=== PATIENT | male | born 1945 | race Caucasian/White ===

== ENCOUNTER → 2017-01-25 | Outpatient (CLI) | payer MEDICARE, OTHER ==
[~2017-01-25] MED LIST: ALLO100T PO; AMLO5TAB2 PO; CIPR500T3 PO; CO Q1CAP PO; COZA100T2 PO; LORTTAB5 PO; PERC5TAB6 PO; RISATAB3 PO; SERT50TA PO; SOMA350T PO; TYLE325T5 PO; VANC125C2 PO; ZOLO50TA PO
--- NOTE | 2017-01-25 15:41 | REP ---
CT LUMBAR SPINE WITHOUT CONTRAST: HISTORY: Fracture. COMPARISON: MRI 12/31/2016. A diffuse disc bulge is present at the L1-2 level. There is minimal compression of the thecal sac. There is hypertrophy of the posterior articulating facets. The L1 nerves exit the neural foramina without compression. A diffuse disc bulge is present at the L2-3 level. There is hypertrophy of the ligamenta flava and posterior articulating facets. These findings produce severe central canal stenosis. There is compression of the L2 nerves in the neural foramina. A diffuse disc bulge is present at the L3-4 level. There is hypertrophy of the ligamenta flava and posterior articulating facets. These findings produce moderate central canal stenosis. There is compression of the L3 nerves in the neural foramina. A diffuse disc bulge is present at the L4-5 level. There is hypertrophy of the ligamenta flava and posterior articulating facets. There are 4 mm of grade 1 spondylolisthesis of L4 on 5. These findings produce severe central canal stenosis. There is compression of the L4 nerves in the neural foramina. An interspinous spacer is present at this level. A diffuse disc bulge is present at the L5-S1 level. There is no thecal sac compression. The disc bulge abuts the S1 nerves. There is hypertrophy of the posterior articulating facets. There is compression of the L5 nerves in the neural foramina. There are old compression fractures of the L3 and L5 vertebral bodies with minima and mild height loss. The L2-3, L4-5 and L5-S1 intervertebral discs are decreased in height consistent with disc degeneration. IMPRESSION: 1. Diffuse disc bulge at the L1-2 level with minimal thecal sac compression. 2. Severe central canal stenosis at the L2-3 level secondary to disc bulge, ligamentous and facet hypertrophy. There is compression of the L2 nerves in the neural foramina. 3. Moderate central canal stenosis at the L3-4 level secondary to disc bulge, ligamentous and facet hypertrophy. There is compression of the L3 nerves in the neural foramen. 4. Severe central canal stenosis at the L4-5 level secondary to disc bulge, ligamentous and facet hypertrophy and grade 1 spondylolisthesis. There is compression of the L4 nerves in the neural foramina. An interspinous spacer is present. 5. Diffuse disc bulge at the L5-S1 level. This abuts the thecal sac. There is compression of the L5 nerves in the neural foramen. 6. Old compression fractures of the L3 and L5 vertebral bodies with minimal and mild height loss respectively. Signed by Doc Lovett MD 01/25/2017 03:48 P
--- NOTE | 2017-01-25 16:27 | REP ---
Lumbar spine series: Seven views: History: Wedge compression fracture. Comparison study is from 12/24/2016. Findings: Lateral views include flexion/extension lateral radiographs. No subluxation or instability is seen. The patient status post L4-5 fusion with interspinous process clamping. There is compression deformity at L5 with approximately 30% loss of the vertebral body height at L5 unchanged. Degenerative disc disease is seen at L4-5 and L3-4. There is some wedging at L3 unchanged as well. No subluxation or instability is seen. There are calcifications in the upper abdomen suggestive of pancreatic and/or biliary calcifications. There are surgical clips in the right upper and right lower abdomen. Impression: Degenerative spondylosis changes. Old compressions of L3 and L5. No subluxation seen. Signed by Alfredito Gregorio MD 01/25/2017 04:49 P
== END ==
LOC: M RAD 14:40
PROVIDERS: ATTEND Neurological Surgery
DX: S32.000A Wedge compression fracture of unspecified lumbar vertebra, initial encounter for closed fracture (principal); M47.816 Spondylosis without myelopathy or radiculopathy, lumbar region; M51.06 Intervertebral disc disorders with myelopathy, lumbar region; M51.17 Intervertebral disc disorders with radiculopathy, lumbosacral region; M99.73 Connective tissue and disc stenosis of intervertebral foramina of lumbar region; M43.16 Spondylolisthesis, lumbar region; X58.XXXA Exposure to other specified factors, initial encounter; Y92.9 Unspecified place or not applicable; Y93.9 Activity, unspecified; Y99.9 Unspecified external cause status

== ENCOUNTER → 2017-03-03 | Outpatient (CLI) | payer MEDICARE, OTHER ==
[~2017-03-03] MED LIST changes: +CO Q100C PO; -CO Q1CAP PO; +LACT10SO3 PO; +LOSA25TA8 PO; +LOVE0.4I2 SC; +METO5TAB2 PO; +ONDA4TAB6 PO; +OPTI4PAD XX; +PANT40TA2 PO; +PERC5TAB12 PO; -PERC5TAB6 PO; +ZANA2CAP PO
[2017-03-03 14:15] LABS: BASO % 0.3 % (0.0-1.0); EOS % 1.1 % (0.0-3.0); LARGE UNSTAINED CELL # 0.1 K/mm3 (0.0-0.4); LARGE UNSTAINED CELL % 2.5 % (0.0-4.0); LYMPH # 0.8 K/mm3 (1.5-4.5); LYMPH % 14.6 % (24.0-44.0); MEAN CORPUSCULAR HEMOGLOBIN 31.3 pg (27.0-33.0); MEAN CORPUSCULAR HGB CONC 32.7 g/dl (32.0-36.5); MEAN CORPUSCULAR VOLUME 95.8 fl (80.0-96.0); MONO # 0.5 K/mm3 (0.0-0.8); MONO % 10.8 % (0.0-5.0); NEUTROPHILS # 3.4 K/mm3 (1.8-7.7); NEUTROPHILS % 70.7 % (36.0-66.0); PLATELET COUNT, AUTOMATED 159 k/mm3 (150-450); RED CELL DISTRIBUTION WIDTH 17.1 % (11.5-14.5); WHITE BLOOD COUNT 4.8 K/mm3 (4.0-10.0)
--- NOTE | 2017-03-03 14:16 | REP ---
Chest two views HISTORY: Spinal fracture Comparison: 07/14/2016 The lungs are clear. The heart is normal in size. The pulmonary vasculature is normal in appearance. The bony structure is intact. An Xcamfl-T-Sdah catheter is present. IMPRESSION: No acute disease. Signed by Doc Lovett MD 03/03/2017 02:07 P
[2017-03-03 14:20] LABS: INR 1.07
[2017-03-03 14:33] LABS: ALBUMIN 3.1 GM/DL (3.2-5.2); ALBUMIN/GLOBULIN RATIO 0.65 (1.00-1.93); BILIRUBIN,TOTAL 0.3 MG/DL (0.2-1.0); CALCIUM LEVEL 8.6 MG/DL (8.8-10.2); CREATININE FOR GFR 2.07 MG/DL (0.70-1.30); POTASSIUM SERUM 4.8 MEQ/L (3.5-5.1); TOTAL PROTEIN 7.9 GM/DL (6.4-8.2)
--- NOTE | 2017-03-04 15:22 | ECGEPIP ---
Stationary ECG Study [facility] Test Date: 2017-03-03 Pat Name: DONATO DICK Department: Room: - Gender: M Digital Imaging Technician: KENYATTA : 1945 Requested By: TEVIN REAVES Order Number: [id number] Reading MD: Daniel Lobato Measurements Intervals Maceo Rate: 70 P: 66 DC: 233 QRS: -58 QRSD: 130 T: 25 QT: 401 QTc: 434 Interpretive Statements SINUS RHYTHM WITH FIRST DEGREE AV BLOCK RIGHT BUNDLE BRANCH BLOCK LEFT ANTERIOR FASCICULAR BLOCK Similar to 07/16/2016 except for new left axis deviation. Electronically Signed On 03-04-2017 15:21:50 EDT by Daniel Lobato
== END ==
LOC: M LAB 13:13
PROVIDERS: ATTEND Neurological Surgery
DX: S32.000A Wedge compression fracture of unspecified lumbar vertebra, initial encounter for closed fracture (principal); M48.07 Spinal stenosis, lumbosacral region; I45.2 Bifascicular block; I44.0 Atrioventricular block, first degree; X58.XXXA Exposure to other specified factors, initial encounter; Y92.9 Unspecified place or not applicable; Y93.9 Activity, unspecified; Y99.9 Unspecified external cause status

== ENCOUNTER → 2017-03-04 | Outpatient (REF) | payer MEDICARE, OTHER | LOC: M LAB REF 10:07 | PROVIDERS: ATTEND Neurological Surgery | DX: S32.000A Wedge compression fracture of unspecified lumbar vertebra, initial encounter for closed fracture (principal); M48.07 Spinal stenosis, lumbosacral region; X58.XXXA Exposure to other specified factors, initial encounter; Y92.9 Unspecified place or not applicable; Y93.9 Activity, unspecified; Y99.9 Unspecified external cause status ==

== ENCOUNTER 2017-03-17 07:30 | Inpatient (IN) | payer MEDICARE, OTHER ==
[~2017-03-17] VITALS: Ht 182.9 cm; Wt 108.4 kg
[~2017-03-17 07:30] MED LIST changes: -LACT10SO3 PO; -LOVE0.4I2 SC; -METO5TAB2 PO; -ONDA4TAB6 PO; -OPTI4PAD XX; -PANT40TA2 PO
[2017-04-05] MEDS ORDERED: BUPIVACAINE HCL 0.5% 30 ML VIAL As Ordered ONE (06:40)
[2017-04-05] MEDS ORDERED: TRANEXAMIC ACID 100 MG/ML 10ML VIAL As Ordered ONE (06:40)
[2017-04-05] MEDS ORDERED: THROMBIN SOLN 20,000 UNITS KIT As Ordered ONE (06:40)
[2017-04-05] MEDS ORDERED: HEPARIN SOD (PORCINE) 5000 UNITS/ML VIAL As Ordered ONE (06:40)
[2017-04-05] MEDS ORDERED: BACITRACIN PWD 50,000 UNITS VIAL As Ordered ONE ×2 (06:41→10:31)
[2017-04-05] MEDS ORDERED: LR 1,000 ML IV ONE (08:00)
[2017-04-05] MEDS ORDERED: LIDOCAINE 2% INJ 100 MG/5 ML SDV (FOR ANES.) As Ordered ONE (12:13)
[2017-04-05] MEDS ORDERED: ePHEDrine SULFATE 25 MG/5 ML(5MG/ML) SYRINGE As Ordered ONE (12:13)
[2017-04-05] MEDS ORDERED: PROPOFOL 200 MG/20 ML VIAL As Ordered ONE ×2 (12:13→13:56)
[2017-04-05] MEDS ORDERED: MIDAZOLAM INJ 2 MG/2 ML VIAL (J2250) As Ordered ONE (12:13)
[2017-04-05] MEDS ORDERED: PROPOFOL 500 MG/50 ML VIAL As Ordered ONE (12:13)
[2017-04-05] MEDS ORDERED: dexameTHASONE 4 MG/ML 1ML VIAL (J1100) As Ordered ONE (12:13)
[2017-04-05] MEDS ORDERED: ROCURONIUM BROMIDE 50 MG/5 ML VIAL/SYRINGE As Ordered ONE (12:13)
[2017-04-05] MEDS ORDERED: REMIFENTANIL 1MG 3ML VIAL As Ordered ONE ×4 (12:13→17:08)
[2017-04-05] MEDS ORDERED: fentaNYL 250 MCG/5 ML INJECTION (J3010) As Ordered ONE (12:13)
[2017-04-05 13:08] LABS: ABG BASE EXCESS -7.6 (-2.0-2.0); ABG HCO3 19.5 MEQ/L (22.0-26.0); ABG PARTIAL PRESSURE CO2 46.4 mmHg (35.0-45.0); ABG PARTIAL PRESSURE O2 227.2 mmHg (75.0-100.0); ABG STANDARD HCO3 18.3 MEQ/L (22.0-26.0)
[2017-04-05 13:13] LABS: ABG pH (ARTERIAL) 7.242 UNITS (7.350-7.450)
[2017-04-05 13:14] LABS: MEAN CORPUSCULAR HEMOGLOBIN 31.7 pg (27.0-33.0); MEAN CORPUSCULAR VOLUME 96.1 fl (80.0-96.0); WHITE BLOOD COUNT 4.6 K/mm3 (4.0-10.0)
[2017-04-05] MEDS ORDERED: HYDROmorphone HCL 2 MG/ML 1ML VIAL (J1170) As Ordered ONE (13:27)
[2017-04-05] MEDS ORDERED: BUPIVACAINE LIPOSOME/PF 1.3% 20 ML VIAL (13.3MG/ML)(EXPAREL) As Ordered ONE (13:33)
[2017-04-05] MEDS ORDERED: ceFAZolin 2 GM/D5W 50 ML IV BAG (J0690) As Ordered ONE ×2 (13:33→18:00)
[2017-04-05] MEDS ORDERED: ONDANSETRON 4MG/2ML VIAL (J2405) As Ordered ONE (13:53)
[2017-04-05] MEDS ORDERED: NEOSTIGMINE 1MG/ML 5 ML SYRINGE (J2710) As Ordered ONE (13:53)
[2017-04-05] MEDS ORDERED: GLYCOPYRROLATE INJ 0.2 MG/ML 2 ML VIAL As Ordered ONE (13:53)
[2017-04-05] MEDS ORDERED: PHENYLephrine HCL 500 MCG/5 ML (100MCG/ML) SYRINGE (J2370) As Ordered ONE ×3 (13:56→17:11)
[2017-04-05 14:32] LABS: ABG BASE EXCESS -8.3 (-2.0-2.0); ABG HCO3 17.8 MEQ/L (22.0-26.0); ABG PARTIAL PRESSURE CO2 38.7 mmHg (35.0-45.0); ABG PARTIAL PRESSURE O2 210.3 mmHg (75.0-100.0); ABG STANDARD HCO3 17.8 MEQ/L (22.0-26.0); ABG pH (ARTERIAL) 7.281 UNITS (7.350-7.450)
[2017-04-05 14:39] LABS: MEAN CORPUSCULAR HEMOGLOBIN 31.2 pg (27.0-33.0); MEAN CORPUSCULAR HGB CONC 31.8 g/dl (32.0-36.5); MEAN CORPUSCULAR VOLUME 98.1 fl (80.0-96.0); RED CELL DISTRIBUTION WIDTH 16.6 % (11.5-14.5); WHITE BLOOD COUNT 4.7 K/mm3 (4.0-10.0)
[2017-04-05] MEDS ORDERED: SODIUM BICARBONATE 8.4% INJ 50 ML SYRINGE As Ordered ONE (14:39)
[2017-04-05] MEDS ORDERED: CALCIUM CHLORIDE 10% 1 GM/10 ML SYR As Ordered ONE (15:46)
[2017-04-05 17:20] LABS: ABG BASE EXCESS -8.5 (-2.0-2.0); ABG HCO3 17.6 MEQ/L (22.0-26.0); ABG PARTIAL PRESSURE CO2 38.8 mmHg (35.0-45.0); ABG PARTIAL PRESSURE O2 186.9 mmHg (75.0-100.0); ABG STANDARD HCO3 17.6 MEQ/L (22.0-26.0); ABG TOTAL CO2 18.8 MEQ/L (23.0-31.0)
[2017-04-05 17:21] LABS: ABG pH (ARTERIAL) 7.275 UNITS (7.350-7.450)
[2017-04-05 17:21] LABS: MEAN CORPUSCULAR HEMOGLOBIN 31.8 pg (27.0-33.0); MEAN CORPUSCULAR HGB CONC 33.2 g/dl (32.0-36.5); MEAN CORPUSCULAR VOLUME 95.7 fl (80.0-96.0); RED CELL DISTRIBUTION WIDTH 16.3 % (11.5-14.5); WHITE BLOOD COUNT 5.6 K/mm3 (4.0-10.0)
[2017-04-05] MEDS ORDERED: BACITRACIN OINT 30GM As Ordered ONE (17:48)
[2017-04-05] MEDS ORDERED: ESMOLOL INJ 100MG/10ML VIAL As Ordered ONE (18:57)
--- NOTE | 2017-04-05 19:05 | REP ---
C-ARM VIEWS LUMBAR SPINE: Multiple lateral C-ARM views of the lumbar spine are performed. Some of the views show an interspinous metallic clamp posteriorly at the L4-5 level. Other views show linear metallic probes in the lower lumbar region. 59 seconds of fluoroscopic time was utilized for the procedure. Signed by Joshua Saab MD 04/06/2017 12:34 P
[2017-04-05] MEDS ORDERED: LR 1,000 ML IV SCH (19:30)
[2017-04-05] MEDS ORDERED: METOCLOPRAMIDE INJ 10MG/2ML VIAL (J2765) IV PRN (19:30)
[2017-04-05] MEDS ORDERED: ONDANSETRON 4MG/2ML VIAL (J2405) IV PRN (19:30)
[2017-04-05] MEDS ORDERED: PERCOCET 5MG/325MG TAB PO PRN (19:30)
[2017-04-05] MEDS ORDERED: NORCO, ANEXSIA 5/325MG TABLET (HYDROcodone/ACETAMINOPHEN) PO PRN (19:45)
[2017-04-05] MEDS: fentaNYL 100 MCG/2 ML INJECTION (J3010) IV PRN ×2 (19:50→20:11)
[2017-04-05 20:09] LABS: MEAN CORPUSCULAR HEMOGLOBIN 30.7 pg (27.0-33.0); MEAN CORPUSCULAR HGB CONC 32.5 g/dl (32.0-36.5); MEAN CORPUSCULAR VOLUME 94.5 fl (80.0-96.0); RED CELL DISTRIBUTION WIDTH 17.5 % (11.5-14.5); WHITE BLOOD COUNT 6.8 K/mm3 (4.0-10.0)
[2017-04-05 20:11] LABS: INR 1.23
[2017-04-05 20:25] LABS: ALBUMIN 1.9 GM/DL (3.2-5.2); ALBUMIN/GLOBULIN RATIO 0.59 (1.00-1.93); ALKALINE PHOSPHATASE 68 U/L (45-117); ALT/SGPT 15 U/L (12-78); ANION GAP 12 MEQ/L (8-16); AST/SGOT 21 U/L (15-37); BILIRUBIN,DIRECT < 0.1 MG/DL (0.0-0.2); BILIRUBIN,TOTAL 0.2 MG/DL (0.2-1.0); BLOOD UREA NITROGEN 33 MG/DL (7-18); CALCIUM LEVEL 6.9 MG/DL (8.8-10.2); CARBON DIOXIDE LEVEL 14 MEQ/L (21-32); CHLORIDE LEVEL 120 MEQ/L (98-107); CREATININE FOR GFR 1.68 MG/DL (0.70-1.30); GLOMERULAR FILTRATION RATE 43.2 (>42); GLUCOSE, FASTING 122 MG/DL (83-110); MAGNESIUM LEVEL 1.4 MG/DL (1.8-2.4); SODIUM LEVEL 146 MEQ/L (136-145); TOTAL PROTEIN 5.1 GM/DL (6.4-8.2)
[2017-04-05 20:43] VITALS: BP_SYST 113; BP_SYST 125; BP_DIAS 57; BP_DIAS 74
[2017-04-05 21:00] VITALS: BP_SYST 108; BP_SYST 117; BP_DIAS 64; BP_DIAS 69
[2017-04-05] MEDS: KCL 20MEQ IN 0.45NS 1000ML 1,000 ML IV SCH (21:00)
[2017-04-05] MEDS ORDERED: DOCUSATE SODIUM 100 MG CAP PO SCH (21:00)
[2017-04-05] MEDS ORDERED: LACTOBACILLUS ACIDOPHILUS CAP (BACID) PO SCH (21:00)
[2017-04-05] MEDS: CEFUROXIME SODIUM 750 MG in D5W MINI-BAG PLUS 50 ML IV SCH (21:01)
[2017-04-05] MEDS: MORPHINE 2 MG/ML 1ML SYRINGE IV PRN ×2 (21:26→23:47)
[2017-04-05] MEDS ORDERED: MAG SULF 1GM/100ML (MAG RUN) 1 GM in APPROPRIATE DILUENT 1 EA IV ONE (22:00)
[2017-04-05 22:25] LABS: MICROSCOPIC INDICATED? MAN YES (NO)
[2017-04-05 22:44] LABS: MICROSCOPIC EXAM PERFORMED; WBC, URINE NONE SEEN /hpf (0-3)
[2017-04-05 22:45] LABS: BACTERIA, URINE NONE SEEN; HYALINE CAST, URINE NONE SEEN /lpf (0-1); SQUAMOUS EPITHELIAL CELL URINE SMALL AMOUNT /hpf (SMALL AMT)
[2017-04-05 23:00] VITALS: BP_SYST 104; BP_SYST 115; BP_DIAS 115; BP_DIAS 60
[2017-04-06] VITALS (23 sets, daily range): BP systolic 95–147; BP diastolic 51–81
[2017-04-06] MEDS: MORPHINE 2 MG/ML 1ML SYRINGE IV PRN ×3 (02:16→23:31)
[2017-04-06] MEDS: CEFUROXIME SODIUM 750 MG in D5W MINI-BAG PLUS 50 ML IV SCH ×2 (05:48→12:36)
[2017-04-06 06:25] LABS: MEAN CORPUSCULAR HEMOGLOBIN 31.5 pg (27.0-33.0); MEAN CORPUSCULAR HGB CONC 33.5 g/dl (32.0-36.5); MEAN CORPUSCULAR VOLUME 94.1 fl (80.0-96.0); RED CELL DISTRIBUTION WIDTH 17.8 % (11.5-14.5); WHITE BLOOD COUNT 8.7 K/mm3 (4.0-10.0)
[2017-04-06 06:33] LABS: INR 1.18
[2017-04-06 06:38] LABS: ALBUMIN 2.4 GM/DL (3.2-5.2); ALBUMIN/GLOBULIN RATIO 0.67 (1.00-1.93); BILIRUBIN,TOTAL 0.3 MG/DL (0.2-1.0); CALCIUM LEVEL 8.4 MG/DL (8.8-10.2); CREATININE FOR GFR 1.95 MG/DL (0.70-1.30); GLOMERULAR FILTRATION RATE 36.4 (>42); MAGNESIUM LEVEL 2.1 MG/DL (1.8-2.4)
[2017-04-06 06:51] LABS: POTASSIUM SERUM 5.6 MEQ/L (3.5-5.1)
--- NOTE | 2017-04-06 07:30 | REPUSA ---
Indication: Evaluate compression. Technique: Axial CT scan images without contrast. Reformatted coronal and sagittal images. Comparison: 01/25/2017. Findings: Unchanged moderate osteopenia. Recent multilevel laminectomies are noted at L2-L3, L3-L4, L4-L5 and L5-S1 levels. Soft tissue edema, minimal effusion and emphysema are noted in the surgical bed. Surgical drains are noted in good position. Complete resolution of the previously noted multilevel narrowing of the spinal canal. Unchanged grade 1 anterolisthesis of L4 on L5. Unchanged moderate diffuse disc bulges. Unchanged moderate to severe bilateral neural foramina narrowing from L2-S1 levels. Unchanged mild chronic compression deformities of the L5, L4, L3 and L2 vertebral bodies. Impression: Unchanged osteopenia. Laminectomies are noted from L2-S1 levels. Surgical changes with edema, emphysema and minimal fluid. Complete resolution of multilevel stenosis of the spinal canal. Unchanged chronic spondylosis. Unchanged osteopenia with multiple chronic compression deformities of the lumbar vertebral bodies.
[2017-04-06] MEDS: KCL 20MEQ IN 0.45NS 1000ML 1,000 ML IV SCH (08:08)
[2017-04-06] MEDS ORDERED: ACETAMINOPHEN 650 MG SUPP PR PRN (08:30)
[2017-04-06] MEDS: LACTULOSE 20 GM/30 ML SYRUP UD PO SCH ×3 (08:52→20:37)
[2017-04-06] MEDS: NS 0.45% 1,000 ML IV SCH ×2 (08:57→20:41)
[2017-04-06] MEDS ORDERED: LOSARTAN 25 MG TAB PO SCH (09:00)
[2017-04-06] MEDS ORDERED: ACETAMINOPHEN 650 MG SUPP PR SCH ×2 (09:00)
[2017-04-06] MEDS ORDERED: tiZANidine 4 MG TAB PO SCH (09:00)
[2017-04-06] MEDS ORDERED: SERTRALINE HCL 50 MG TAB PO SCH (09:00)
[2017-04-06] MEDS: ACETAMINOPHEN 650 MG SUPP PR SCH ×5 (09:30→23:31)
[2017-04-06 11:48] LABS: REASON FOR REVIEW COMPREHENSIVE REVIEW
--- NOTE | 2017-04-06 14:59 | IPN ---
DATE: 04/06/2017 A 71-year-old gentleman seen at bedside, resting comfortably. He feels that his pain is adequately controlled. He denies any chest pain, shortness of breath, nausea, or vomiting. No abdominal pain. OBJECTIVE: VITAL SIGNS: Temperature is 98.9, pulse 90, respiratory rate is 18 and nonlabored, blood pressure 139/67, SPO2 is 98% on room air. GENERAL: The patient appears to be in no acute distress. He is alert and oriented. HEENT: Unremarkable. LUNGS: Clear. HEART: Regular rate and rhythm. ABDOMEN: Soft, obese, nontender, nondistended. Positive bowel sounds. No masses. No rebound. EXTREMITIES: No edema. No calf tenderness. LABORATORY DATA: White count 8.7, hemoglobin 9.5, platelets 105,000. Sodium 140, potassium 5.6, chloride 111, bicarbonate 19, anion gap 10, BUN is 40, creatinine 1.95, glucose is 134. Apparently, there was a lactic acid that was done yesterday evening at 1944 and it was 4.9. This morning, it is 3.2. However, it should be noted that this patient is status post surgery. His pressures have been normal. IMPRESSION: Mr. Maza is a 71-year-old gentleman admitted and had surgery by neurosurgery and the hospitalist has been requested see him on medical to assist with the medical management status post lumbar decompression. PROBLEM LIST: 1. Chronic kidney disease (CKD), stage III. 2. Chronic low back pain with lumbar decompression and fusion. 3. History of B-cell lymphoma. 4. Depression. 5. Morbid obesity with a body mass index (BMI) of 33.2. This can complicate his medical condition. 6. Gout. RECOMMENDATIONS: We will continue to follow along on this patient. There was a slight increase his creatinine today as well as his potassium. His Cozaar was discontinued this morning and he does currently have IV fluids running at 120 mL an hour. I would recommend repeating laboratories later today to see how we are progressing, but he does not demonstrate any issues on telemetry with his elevated potassium. Deep vein thrombosis (DVT) prophylaxis, thromboembolic-deterrent stockings (TEDS) and sequentials. Regarding his blood sugars, he does appear to be adequately controlled currently. We will continue to follow.
[2017-04-06 16:22] LABS: ALBUMIN 2.6 GM/DL (3.2-5.2); CALCIUM LEVEL 8.2 MG/DL (8.8-10.2); CREATININE FOR GFR 1.84 MG/DL (0.70-1.30); GLOMERULAR FILTRATION RATE 38.9 (>42); PHOSPHORUS LEVEL 4.1 MG/DL (2.5-4.9)
[2017-04-06 16:24] LABS: POTASSIUM SERUM 5.4 MEQ/L (3.5-5.1)
--- NOTE | 2017-04-06 16:26 | ROOPDOC ---
[facility] Report Of Operation Report of Operation DATE OF SURGERY: 04/05/2017 SURGEON: Dr. Tevin Luque MATERIAL CHASER: Dr. Keturah Forrest PREOPERATIVE DIAGNOSIS: Intractable bilateral leg pain and weakness, neurogenic claudication, L2-S1 Degenerative disc disease, L4-5 grade I anterolystesis, bilateral multilevel facet hypertrophy and L4-L5-S1 bilateral foraminal stenosis , previous instrumental fusion interspinous processes L4-5 POSTOPERATIVE DIAGNOSIS: Same PROCEDURE PERFORMED: 1. Laminectomy L3, L4, L5, S1, and partial L2. 2. Bilateral complete facetectomy L3-L4, L4-5 and L5-S1 and partial facetectomy L2-L3 for posterolateral decompression on right and left side 3. Non-instrumented posterior-lateral onlay bone graft spinal fusion L2 through S1, use of allograft/autograft bone. 4. Removal interspinous processes hardware from previous surgery 5. Repair of CSF leak 6. lntraoperative use of C-arm fluoroscopy. 7. L5 vertebrae biopsy. ANESTHESIA: GETA + Local. ESTIMATED BLOOD LOSS: 1050 cc. BLOOD TRANSFUSION: 2 Units FINDINGS : Severe multilevel central canal stenosis, non-functioning interspinous fusion device DRAINS: NANI drain x 4 COMPLICATIONS: Dural tear and CSF leak, repaired in situ DISPOSITION: Stable to the PACU. INDICATIONS FOR THE PROCEDURE HISTORY: Ms. Maza is a 71 y/o male with complicated oncologic history and multiple treatments, who presents with signs, symptoms and radiographic evidence of neurogenic radiculopathy, resistant to conservative treatment. MRI of lumbar spine showed multilevel degenerative changes a with significant central and foraminal stenosis at those levels, L4-5 anterolystesis grade I and interspinous fusion device at the same lavel . Given of progression of his symptoms, patient decided to proceed with posterior-lateral decompression of above levels with instrumented fusion. SURGICAL RISKS: The patient and his family were well apprised of all objectives, benefits, risks and potential complications of the procedure, including but not limited to : worsening of current status, the possible need for further procedures, the risk of infection, headaches, CSF leak, possible spinal nerve injury resulting in paralysis, infection, injury to major vessels causing hemorrhage, stroke, loss of language function, coma and even . No assurance was given whether symptoms would improve following the procedure. The surgery is technically difficult procedure and despite the significant discomfort for the patient and the best effort of the physician, the surgery may be unsuccessful or may need to be aborted. Informed consent was obtained and secured in the chart after the patient and family voiced understanding of these risks and decided to proceed with the operation. DESCRIPTION OF THE PROCEDURE After informed consent was obtained both verbally and written, and after all matters pertaining to surgery, anesthesia and follow-up care had been discussed with them, the patient was transferred to the operating room. He was given preoperative prophylactic IV antibiotics. ANESTHESIA: The patient was sedated and intubated without difficulty by the anesthesia service. He underwent vascular cannulization in accordance with Anesthesia protocol. Eyes were taped shut after ointment was applied to prevent corneal abrasion. A Gallo catheter and rectal tube were inserted. POSITIONING: The patient was turned into the prone position on the Francisco J table. Arms were positioned 90/90 on the arm boards. Bolsters were used to support the chest and pelvis and pillows for hips, knees and ankles. All pressure points were carefully padded. A Joanie Hugger was placed over the upper body to maintain control of core body temperature. The patient underwent a 70% alcohol prep. X-ray was used to delineate the extend of excision. OPERATIVE TECHNIQUE: The patient was prepped and draped in the standard sterile fashion. The skin was subsequently opened sharply with a # 15 scalpel blade and posterior midline incision was created. Electrocautery was used for hemostasis and soft tissue was dissected down to fascia. Fascia was incised longitudinally on either side of the spinous processes and subperiosteal paraspinal muscle dissection was carried out, exposing from L2 to S2 down superiorly and inferiorly in the midline to expose supraspinous ligament and laminas. Hemostasis was achieved. Self-retaining retractors were then inserted. Next laminectomies were performed, removing all of spinal process and medial third of the lamina of L3, L4, L5 and partial L2 and S1. Bone ultrasound dissector and Kerrisongs were used to remove L4-5 interlaminar fusion device from previous surgery. Note were made of significant scarring tissue around device. During laminectomies and resection of ligamentum flavum, which were causing significant central canal narrowing, dural tears occurred with CSF leak without protruding neural elements. Dural tear were repaired in situ with microneurosurgical techniques using Neurolon suture. The decompression was carried out in a posterolateral fashion on both right and left sides at L3-4, L4-5, L5-S1 and partially at L2-3. Removed bone has been harvested, cleaned from ligaments and scar and milled with allograft. A sharp awl was placed into the remaining of the base of L4 and L5 pedicles on left side. Aspiration needle was place into pedicle and bone marrow has been aspirated and send to Pathology as well as piece of milled laminae. Note was made that bone is very soft and unlikely will support placement of instrumental fusion. Intraoperative desion was made to forgo placement pedicle based instrumental fusion and proceed with only onlay bone graft fusion. Medicrea polyaxial screw was placed into the pedicles and vertebral bodies under neuronavigation guidance bilaterally at L4, L5 and S1 vertebrae. Proper placement and trajectory were confirmed with intraoperative fluoroscopic x-ray. All were deemed to be acceptable. The wound was copiously irrigated with antibiotic saline solution. The high- speed pneumatic drill was utilized to decorticate the bone laterally for lateral arthrodesis. These recesses were filled with auto and allograft bone chips as onlay graft in decorticated gutters for posterolateral fusion. Dural sac was glued with Dural Seal with piece Surgicell and T-seal with piece of Surgifoam in sandwich technique to prevent CSF leak. Paraspinal muscles and subcutaneous tissue of the wound were infiltrated by 20 ml of Exparel. 4 drains was placed and brought out through a separate stab incision. The paraspinal muscles were subsequently closed utilizing interrupted 0.0 polyglactin synthetic absorbable suture (Vicryl). Fascia was closed by 0.0 Stratafix surure. Subcutaneous tissue and skin was approximated with 2.0 Stratafix suture. The skin was then closed with Ethicon wound closure system. Drains were secured to skin by 2.0 silk suture. The drain incision was covered by Bacitracine ointment and was dressed in a clean dry dressing. All sponge counts, needle counts and instrument counts were correct at the end of the case times two. The patient tolerated the procedure well, without any complications and was transferred in stable condition to the recovery room. TEVIN LUQUE MD Apr 06, 2017 16:26
[2017-04-06 16:37] LABS: PT 1:2 SUBSTITUTION 13.6 SECONDS
--- NOTE | 2017-04-06 23:01 | CR ---
DATE OF CONSULTATION: 04/05/2017 CONSULTING PHYSICIAN: Dr. Luque from neurology. CONSULTANTS: Dr. Aguayo, hospitalist. REASON FOR CONSULTATION: Medical management. CHIEF COMPLAINT: Back pain status post laminectomy. HISTORY OF PRESENT ILLNESS: (HPI): This is a 71-year-old male with past medical history of pancytopenia, diffuse B cell lymphoma, also orchitis and history of urothelial carcinoma on the right side with right urethral and kidney resection. Also, the patient has a history of Clostridium (C.) difficile, history of methicillin resistant Staphylococcus aureus (MRSA) from a frozen section, hypertension, anxiety, depression, gout and chronic kidney disease Stage IV who presented with back pain status post laminectomy with Dr. Luque this evening. Per patient he is feeling well, denies any chest pain, trouble breathing, abdominal pain, nausea, vomiting, diarrhea, constipation or any problem with urination. However, the patient did lose more than 1 liter of blood in the operating room (OR) and was status post 2 units of packed red blood cells (PRBC) transfusion. The patient also had arterial blood gas (ABG) done in the OR which shows a pH of 7.2 and a metabolic acidosis. The hospitalist has been consulted for medical management. ALLERGIES: NONE. HOME MEDICATIONS: - acetaminophen 650 mg by mouth every four hours as needed - Losartan 25 mg by mouth daily - Sertraline 50 mg by mouth daily - Zanaflex 2 mg by mouth every four hours PAST MEDICAL HISTORY: 1. Pancytopenia. 2. Chronic kidney disease Stage IV. 3. History of urothelial carcinoma and status post right sided nephrectomy. 4. Orchitis status post right orchectomy. 5. Diffuse B cell lymphoma. 6. History of C. diff and MRSA. 7. Hypertension. 8. Anxiety/depression. 9. Gout. 10. Hypokalemia. PAST SURGICAL HISTORY: 1. Infusaport removal and replacement due to MRSA infection. 2. Orchiectomy on the right side. 3. L4-5 decompression. 4. Left knee medial meniscus repair. 5. Adhesive tenosynovitis repair. 6. Tibial tendon of the left foot. 7. Right nephrectomy and removal of the cuff of the bladder. 8. Cystoscope. 9. Status post transurethral resection of a bladder tumor. SOCIAL HISTORY: The patient used to smoke, quit 15 years ago, 2-1/2 packs per day for the past 56 years. He denies any drinking or use of any recreational drugs. He currently lives with his . He has one dog and one cat. FAMILY HISTORY: Noncontributory. REVIEW OF SYSTEMS: GENERAL: The patient denies any weight changes, any recent travel or sick contact. He denies any fever or chills. HEENT: Denies any changes with vision, smell, hearing, or taste. CARDIOVASCULAR: Denies any chest pain, palpitations, trouble breathing. PULMONARY: Denies any problem with breathing. GI: Denies any abdominal pain, any nausea, vomiting, diarrhea, constipation : Denies any dysuria, urine urgency, blood in urine. The patient follows with Dr. Adams. MUSCULOSKELETAL: Admits to severe back pain after a fall. Found to have a compresssion fracture of the back which led to surgery. HEMATOLOGY/ONCOLOGY: The patient has numerous history including diffuse B cell lymphoma, urothelial carcinoma of the right ureter and orchitis. The patient was status post radiation and chemotherapy. Radiation therapy was done on the back and also in the groin area. ENDOCRINE: Denies any diabetes, polydipsia, any heat or cold intolerance. NEURO: Admits to left sided numbness in the past; however, after surgery the patient had some right sided numbness. PSYCH: Admits to depression, however no issues currently. PHYSICAL EXAMINATION: VITAL SIGNS: Temperature 98.4, pulse 81, respirations 16, blood pressure 117/66, oxygen saturating at 90% on two liters nasal cannula. GENERAL: Patient is a morbid obese elderly male who was alert, awake, and oriented times three. Does not appear to be in distress, lying comfortably in bed with head elevated at roughly 5 degrees. HEENT: Normocephalic, atraumatic . Extraocular motor intact. Mucous moist. NECK: Supple. No neck lymphadenopathy. CARDIOVASCULAR: Regular rate and rhythm. Normal S1, S2. Distant heart sound due to increased anterior-posterior (AP) diameter. LUNGS: Clear to auscultation bilaterally. No wheezing, rales or rhonchi. ABDOMEN: Positive bowel sounds. Soft, nontender, nondistended, no peritoneal signs. No ecchymosis. BACK: Incision dry, clean and intact. NEUROLOGY: Cranial nerves II-X11 intact. The patient does have a focal numbness at the right side which was not present before. According to the patient he had numbness on the left side prior to surgery which has resolved. LABORATORY DATA: WBC 6.8, hemoglobin 10.1, hematocrit 31 with platelet count of 121 and MCV 94.5. Sodium 146, potassium 5, chloride 120, bicarbonate 14, anion gap 12, BUN 33, creatinine 1.68, GFR 43.2, fasting glucose 122. Magnesium was low at 1.4, total bilirubin 0.2, direct bilirubin less than 0.1, AST 21, ALT 15, alkaline phosphatase 68, total [id number], CK MB 14.5, troponin less than 0.02. Total protein 5.1, albumin 1.9. Urinalysis is pending. The patient's ABG done in the OR shows pH 7.27, PCO2 38, PO2 186, saturation was 99% with a base excess of negative 8.5. Blood culture times two is pending. Urine culture is pending. The patient was status post two units of PRBC in the OR. The patient had a lumbar spine x-ray, which shows multiple lateral C-Arm views of the lumbar spine are performed. Some of the views shows an interspace metallic clamp posteriorly at L4-5 level. ASSESSMENT AND PLAN: We have been consulted on this 71-year-old male with a past medical history of significant malignancy including diffuse B cell lymphoma, history of right urethral carcinoma with right sided nephrectomy and right sided orchiectomy, pancytopenia, history of Clostridium difficile colitis and methicillin resistant Staphylococcus aureus (MRSA) port infection, hypertension , anxiety, depression, gout, hypokalemia, chronic kidney disease Stage III-IV who presented after a laminectomy over bilateral L3-4, L4-5, L5-S1 facetectomy and posterolateral bone fusion with bone biopsy and L4-5 interspinous process fusion and acute blood loss in the operating room. 1. Status post back surgery with neurosurgery, Dr. Luque due to compression fracture of the back after radiation therapy. Continue pain management and fluids with neurosurgery, neurochecks and continue nothing by mouth four hours after the procedure. Physical therapy and occupational therapy (PT/OT) and other management per neurosurgery. 2. Acute blood loss anemia intraoperatively with a history of pancytopenia. The patient lost more than 1 liter of blood in the operating room (OR)and was status post 2 units of packed red blood cells. The patient was also found to have a lactic acidosis in the OR with a pH of 7.27 and the base excess of negative 8.5. A lactic acid ordered after surgery shows a lactic acid of 4.9, repeat is pending. Will followup. Currently will transfuse the patient as needed and will continue to monitor the patient. A repeat hemoglobin was 10.1. 3. Lactic acidosis. This is likely secondary to acute blood loss in the OR. Repeat lactic acid is pending. The patient has been pancultured due to history of methicillin resistant Staphylococcus aureus (MRSA) and possible infectious etiologies. Continue to monitor. 4. Chronic kidney disease with creatinine of 1.68. Baseline appears to be worse likely due to the patient having fluid in the OR. Will continue to monitor. At this point the patient is receiving potassium chloride 20 mEq with 1/2 normal saline at the rate of 120 mL per hour. Agree with the fluid. Will likely need to taper off in the morning once the patient's lactic acid improves. 5. Hypernatremia with sodium of 146. Continue 1/2 normal saline. 6. History of pancytopenia. Continue to monitor. The patient does have a significant history for cancer. Followup with a bone biopsy. The patient does follow with Dr. Diaz, oncologist as an outpatient. 7. History of Clostridium difficile and MRSA. Will continue Bacid and will panculture him due to lactic acidosis. 8. History of hypertension. Blood pressure appears to be soft right now, therefore, will hold the patient's home blood pressure medication which is only Losartan 25 mg by mouth daily. 9. History of anxiety and depression. Currently not on any medication at home. Will continue to monitor. 10. History of gout. Not on any medication at home per nephrology, will continue to monitor. 11. Deep venous thrombosis prophylaxis. Per neurosurgery, continue sequential compression stockings (SCD) and thromboembolic deterrent stockings (TEDS) for now. Will add on Heparin once approved by neurosurgery. The patient did lose a significant amount of blood in the operating room; however. 12. Fluids, electrolytes and diet. The patient is currently on K20 1/2 normal at a rate of 120 mL per hour. The patient had a hypermagnesemia, which was repleted with one magnesium run. The patient has been ordered nothing by mouth per neurosurgery for four hours after the procedure. Will need dietary management per surgery. DISPOSITION: Will continue to follow surgery while the patient is here in the hospital. Thank you for the consultation. The patient has been discussed with attending physician, Dr. Aguayo. My preceptor for this patient encounter was Dr. Aguayo. The preceptor was physically present in the building during the encounter and was fully available as needed. All aspects of the patient interview, examination, medical decision making process, and medical care plan development were reviewed and approved by the preceptor. The preceptor is aware and concurs with the plan as stated in the body of this note and will attest to such by her co-signature. MYLES
[2017-04-07] VITALS (7 sets, daily range): BP systolic 127–157; BP diastolic 58–74
[2017-04-07] MEDS: ACETAMINOPHEN 650 MG SUPP PR SCH ×6 (04:19→23:40)
[2017-04-07 05:35] LABS: MEAN CORPUSCULAR HEMOGLOBIN 31.1 pg (27.0-33.0); MEAN CORPUSCULAR VOLUME 91.5 fl (80.0-96.0); RED CELL DISTRIBUTION WIDTH 17.3 % (11.5-14.5); WHITE BLOOD COUNT 8.6 K/mm3 (4.0-10.0)
[2017-04-07 05:50] LABS: CALCIUM LEVEL 7.7 MG/DL (8.8-10.2); CREATININE FOR GFR 1.56 MG/DL (0.70-1.30); GLOMERULAR FILTRATION RATE 47.1 (>42); POTASSIUM SERUM 4.4 MEQ/L (3.5-5.1)
[2017-04-07 05:54] LABS: INR 1.3
[2017-04-07] MEDS ORDERED: CALCIUM/VITAMIN D 500 MG TAB PO SCH (09:00)
[2017-04-07] MEDS: LACTULOSE 20 GM/30 ML SYRUP UD PO SCH ×3 (09:20→20:39)
--- NOTE | 2017-04-07 09:51 | REP ---
Abdomen single AP supine view: Comparison is 12/08/2005. There are dilated bowel loops in a nonspecific pattern, ileus versus bowel obstruction. Numerous surgical drains are identified. There are numerous surgical clips. Impression: Ileus versus bowel obstruction. Signed by Joshua Iqbal MD 04/07/2017 09:42 A
--- NOTE | 2017-04-07 10:08 | CR ---
CONSULTATION NOTE: DATE OF SERVICE: 04/06/2017 REFERRING PHYSICIAN: Dr. Luque, neurosurgery. 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 He was noted to have subacute compression fractures found on MRI on 12/31/2016. He was treated by Dr. Howard with R-CHOP six cycles for his testicular lymphoma. He also received intrathecal methotrexate. Treatment was complicated by protracted cytopenias, which have improved. After treatment on PET scan he was noted to have T4 to T5 lesion biopsy proven to be plasmocytoma for which he underwent radiation to T4, T5 in August and September of 2016. Bone marrow biopsy at that time showed 12% plasma cells. In December of 2016, he was noted to have worsening back pain and MRI of the T and L spine noted multilevel compression fractures, osteoporotic in nature through L3, L5. He was seen by Dr. Luque and taken to the operating room on 04/05/2017 for planned laminectomy decompression with sean placement. However, per Dr. Luque, the patient's bones were quite soft, hence the rods were not placed. Hematology was consulted to evaluate increased perioperative bleeding. His prothrombin time was slightly elevated at 15.2 and his PTT was normal at 27.2, INR was 1.18. Clinically, the patient denies anymore bleeding. He does have NANI drains from his surgical site in his lower back. He has also been transfused two units of packed red cells and also one bag of platelets. CBC today notable for a white count of 8700, hemoglobin of 9.5, platelets of 105,000. PAST MEDICAL HISTORY: Right testicular diffuse large B cell lymphomas as above. Multiple myeloma/plasmacytomas. Hypertension. Chronic kidney disease. Anemia secondary to chronic kidney disease. Hyperparathyroidism. Vitamin D deficiency. Transition cell of the bladder, status post partial cystectomy and nephrectomy. Lumbar fusion. Pilonidal cyst. Obesity. Carpal tunnel syndrome. Degenerative disc disease. PAST SURGICAL HISTORY: Nephrectomy as above. Partial cystectomy. Lumbar fusion. Transurethral resection of the prostate (TURP). Right nephroureterostomy. Carpal tunnel release. MEDICATIONS: - losartan - sertraline - Tylenol - Zanaflex ALLERGIES: No known drug allergies. SOCIAL HISTORY: Former tobacco. He quit in 2011. No alcohol use. 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 He is . FAMILY HISTORY: Sister had breast cancer. PHYSICAL EXAMINATION: VITAL SIGNS: Temperature is 98.9, pulse 90, blood pressure 139/65, oxygen saturation is 98%. GENERAL: The patient is lying in bed. He is in acute distress. HEENT: No pallor, anicteric sclerae. Moist mucous membranes. Oropharynx is clear. HEART: Regular rate and rhythm. Normal S1, S2. RESPIRATORY: Lungs are clear bilaterally. No wheezes, rhonchi or rales. ABDOMEN: Protuberant, soft, nontender, nondistended. EXTREMITIES: Trace edema in the lower extremities. Upper extremity. Trace edema as well. BACK: He does have three NANI drains draining minimal serosanguineous fluid from his postoperative site in the lumbar region. Labs and studies as stated above. IMPRESSION AND PLAN: 71-year-old gentleman with: 1. Multiple myeloma presenting with plasmacytoma in the T4, T5 region status post radiation now with plasmacytoma in the lumbar region postoperative day 1 of L2 to S1 laminectomy without sean placement. 2. Right testis diffuse large B cell lymphoma status post completion of R-CHOP chemotherapy six cycles and intrathecal methotrexate in addition to contralateral testis radiation. 3. Chronic kidney disease stage III. DISCUSSION AND RECOMMENDATION: He currently does not have any active bleeding. I will exclude acquired inhibitors by checking a mixing study and also factors VII and VIII. I will also recommend transfusion of platelets to keep his platelet count above 100,000. If there is continued bleeding from the operative site, he can also be transfused packed red cells. However, clinically it appears that his bleeding was perioperative and has resolved at this time. Platelet transfusion is recommended given possibility of uremia in this patient. He will followup in the clinic as an outpatient upon discharge. cc: Hernandez Luque MD
[2017-04-07] MEDS: NS 0.45% 1,000 ML IV SCH (10:16)
--- NOTE | 2017-04-07 12:37 | IPN ---
DATE OF SERVICE: 04/07/2017 A 71-year-old gentleman seen at bedside. He feels his pain is adequately controlled. His abdominal discomfort does not seem to be as bad as yesterday. He is less distended, and he is passing flatus. OBJECTIVE: Temperature is 98.6, pulse is 81, respiratory rate is 16, blood pressure (BP) 148/69, SPO2 is 96% on room air. HEENT: Unremarkable. Lungs: Clear. Heart: Regular rate and rhythm. Abdomen: Distended. Positive bowel sounds. No masses or rebound noted. Extremities: He does have appropriate proprioception. No motor or sensory deficits noted. Pulses were equal. No calf tenderness. No edema. LABORATORY DATA: White count 8.6, hemoglobin 8.3, platelets 138,000. Sodium 141, potassium 4.4, chloride 111, bicarbonate 22, anion gap 8, BUN is 35, creatinine 1.56 down from 1.84, glucose is 99, magnesium 2.0, albumin 2.6 up from 2.4. INR 1.3. KUB did have large loops of air contrast in the bowel ileus versus bowel obstruction. However, the patient is passing flatus, and I did appreciate bowel sounds today. ASSESSMENT AND PLAN: 1. Chronic low back pain with lumbar decompression and fusion by neurosurgery. His pain appears to be adequately controlled. Will defer pain management and physical therapy to the neurosurgeon. 2. History of multiple myeloma and B-cell lymphoma. Appreciate Dr. Diaz's input. 3. Abdominal distention with possible ileus on kidneys, ureters, bladder (KUB). However, the patient is passing flatus. Does not appear to have any abdominal discomfort and does have some bowel regimen in place. I would recommend trying a clear-liquid diet today to see if this helps progress. If the patient should develop signs or symptoms of worsening ileus or small bowel obstruction, then we can consider putting a nasogastric (NG) tube in place with low intermittent suction and possible general surgical consult. However, for the time being, let us try a clear-liquid diet, which I did recommend to the neurosurgical service, and we will see how he does. 4. Depression, stable. 5. Morbid obesity with body mass index (BMI) of 33.2, which can complicate his medical condition. 6. Gout. A appears to be stable. 7. Hypertension, stable. Will continue to follow his blood pressure. 8. Anemia of chronic disease related to the chronic kidney disease (CKD). Will continue to follow his hemoglobin and hematocrit. 9. History of hyperparathyroidism and vitamin D deficiency. Appreciate the neurosurgical service pointing out that the patient's outpatient homicide investigator had recommended starting the patient on supplemental calcium and vitamin D. However , for some reason, this was never started; and I would be happy to place an order to start the patient on calcium supplementation. But in retrospect, since he currently having some issues with constipation we may want to wait until discharge to start this supplementation. 10. History of transitional cell carcinoma of the bladder, status post partial cystectomy and nephrectomy. Can followup in outpatient urology. 11. Deep venous thrombosis (DVT) prophylaxis currently with thromboembolic deterrents (TEDs) and sequentials. MTDD
--- NOTE | 2017-04-07 12:47 | IPNPDOC ---
General Date: Apr 07, 2017 Postoperative Day #: 2 Pain Control Satisfactory Surgical Procedure Posterior decompression with laminectomy L3, L4, L5, S1, and partial L2 with bilateral facetectomy L3-L4, L4-5 and L5-S1 and partial facetectomy L2-L3 with bone graft placed from L2-S1. Removal of interspinous hardware at L5. Repair of 3 dural tears. Bone marrow aspiration from L5 sent for biopsy. Subjective Mr Maza is a pleasant 71 year old gentleman with a history of whole body radiation, multiple myeloma, hypertension, CK D3 and absent kidney who has been admitted to the hospital for a planned complex spine surgery of L2-S1 decompression and fusion for compression fractures at L3 and L5 by Dr. Luque. He states he is feeling well today and denies any pain. Abdominal distention was noted on his CT of the lumbar. He still has not had a bowel movement, but states he is passing gas. He is still nothing by mouth, and states his only concern is that he is hungry. He was seen by hematology yesterday and was given 2 units of platelets. Objective Clinical Status: AVSS. He is laying flat on the bed. Appears to be in no acute distress. Neurological status: Alert and orientated times three, GCS=[id number]. Speech is Fluent. NANI drains: Top R=60 cc. Top L= 20 cc. Bottom R=80 cc. Bottom L= 55 cc. Top drains are deep. Bottom drains are superficial. Wound/incision: Incision appears to be healing well. No increased drainage, erythema, or increased pain at the site. Motor: R=L=UE=LE. No pronator drift. Gait:Not assessed. On bed rest until he receives TLSO brace. Laboratory Results CBC/BMP Laboratory Tests 04/06/17 15:52 Anion Gap 8 04/07/17 05:20 Red Blood Count 2.67 L, Mean Corpuscular Volume 91.5, Mean Corpuscular Hemoglobin 31.1, Mean Corpuscular Hemoglobin Concent 34.0, Red Cell Distribution Width 17.3 H, Calcium Level 7.7 L Labs 24H Laboratory Tests 2 04/06/17 15:52: Prothrombin Time 15.0H, Mix PT Patient/Normal 1:1 Immediate 13.6, Blood Urea Nitrogen 41H, Creatinine 1.84H, Sodium Level 142, Potassium Level 5.4H, Chloride Level 112H, Carbon Dioxide Level 22, Anion Gap 8, Glomerular Filtration Rate 38.9L, Calcium Level 8.2L, Phosphorus Level 4.1, Albumin 2.6L 04/07/17 05:20: Prothrombin Time 16.5H, Blood Urea Nitrogen 35H, Creatinine 1.56H, Sodium Level 141, Potassium Level 4.4, Chloride Level 111H, Carbon Dioxide Level 22, Anion Gap 8, Glomerular Filtration Rate 47.1, Calcium Level 7.7L, Prothromb Time International Ratio 1.30, Activated Partial Thromboplast Time 31.3, Magnesium Level 2.0 Microbiology Microbiology 04/05/17 Blood Culture - Preliminary, Resulted No growth after 24 hours . All specim... 04/05/17 Blood Culture - Preliminary, Resulted No growth after 24 hours . All specim... 04/05/17 Urine Culture - Final, Complete Assessment/Plan PLAN: 1. Lumbar spinal stenosis and wedge fracture of L3 and L5. S/p posterior decompression with laminectomy L3, L4, L5, S1, and partial L2 with bilateral facetectomy L3-L4, L4-5 and L5-S1 and partial facetectomy L2-L3 with bone graft placed from L2-S1. Removal of interspinous hardware at L5. 2. Anemia: will order CBC q 6 hrs to closely monitor his H and H. He has been seen by hematology yesterday and was given 2 units of platelets. 3. Osteopenia: Plan per hospitalist. 4. Wound care: appear to be healing well. Will plan to keep NANI drains at least another day. 5. Pain control: Satisfactory. 6. DVT prophylaxis: TEDs and SCD. 7. Constipation prophylaxis: Still no BM, but is passing gas. He is taking lactulose 30 mL TID. See diet plan. 8. Diet : currently NPO d/t abdomen distention on CT. Spoke with Dr Ortiz, he has ordered KUB to assess bowel. If improved/no ileus, plan to increase diet to soft foods to help get bowel moving. 9. Nutrition: Low protein and albumin. Once patient no longer nothing by mouth, will need to consult it service to enhance protein intake. 10. Activity: Bed rest until TLSO brace received by [employer]. Brace has been ordered. Spoke with Sharlene who states she will be out to measure patient today or tomorrow. 11. Discharge plan: Dr. Luque would like him to have a TLSO brace and bone stimulator. I have noted in the chart he has a TLSO brace at home. Spoke with nursing, apparently he has just been fitted by ortho for a second brace. Will ask Dr. Luque if we should continue with a second order or cancel it. Thank you for all consulting providers for your much needed help regarding care of Mr. Maza. Medications Scheduled Losartan Potassium (Losartan Potassium), 25 MG PO DAILY, (Reported) Sertraline Hcl (Sertraline HCl), 50 MG PO DAILY, (Reported) Scheduled PRN Acetaminophen (Tylenol), 650 MG PO Q4H PRN for PAIN / FEVER, (Reported) Tizanidine Hydrochloride (Zanaflex), 2 MG PO Q4H PRN for PAIN, (Reported) Allergies Allergies: Coded Allergies: No Known Drug Allergy (Verified Allergy, Unknown, 03/11/17) NO KNOWN per PATIENT LESLYE GOVEA PA-C Apr 07, 2017 09:19
--- NOTE | 2017-04-07 12:56 | IPNPDOC ---
General Date: Apr 06, 2017 Admission Day #: 1 Postoperative Day #: 1 Pain Control Satisfactory. Surgical Procedure Posterior decompression with laminectomy L3, L4, L5, S1, and partial L2 with bilateral facetectomy L3-L4, L4-5 and L5-S1 and partial facetectomy L2-L3 with bone graft placed from L2-S1. Removal of interspinous hardware at L5. Repair of 3 dural tears. Bone marrow aspiration from L5 sent for biopsy. Subjective Mr Maza is a pleasant 71 year old gentleman with a history of whole body radiation, multiple myeloma, hypertension, CK D3 and absent kidney who has been admitted to the hospital for a planned complex spine surgery of L2-S1 decompression and fusion for compression fractures at L3 and L5 by Dr. Luque. He has some pain around the incision and rates it a 6-7/10. He did not sleep very well last night waking up every 30 minutes due to pain. CT of the lumbar was performed this morning. Objective Clinical Status: AVSS. Neurological status: Alert and orientated times three, GCS=[id number]. Speech is Fluent. NANI Drain= 10 cc from right upper drain, 10 cc from left upper drain. 0 cc from lower right and left drain. Wound/incision: Incision appears to be healing well. No increased drainage, erythema, or increased pain at the site. Motor: R=L=UE=LE. Moving all four limbs. Laboratory Results CBC/BMP Laboratory Tests 04/06/17 02:09 04/06/17 05:47 Red Blood Count 3.01 L, Mean Corpuscular Volume 94.1, Mean Corpuscular Hemoglobin 31.5, Mean Corpuscular Hemoglobin Concent 33.5, Red Cell Distribution Width 17.8 H, Calcium Level 8.4 #L, Aspartate Amino Transf (AST/ SGOT) 43 H, Alanine Aminotransferase (ALT/SGPT) 19, Alkaline Phosphatase 81, Total Bilirubin 0.3, Total Protein 6.0 L, Albumin 2.4 #L 04/06/17 15:52 Anion Gap 8 Labs 24H Laboratory Tests 2 04/05/17 22:06: Bedside Urine Color (LAB) YELLOW, Bedside Urine Appearance (LAB) CLEAR, Bedside Urine pH (LAB) 5.0, Bedside Urine Specific [place] (LAB 1.020, Bedside Urine Protein (LAB) NEGATIVE, Bedside Urine Glucose (UA) NEGATIVE, Bedside Urine Ketones (LAB) NEGATIVE, Bedside Urine Blood POSITIVEH, Bedside Urine Nitrite ( LAB) NEGATIVE, Bedside Urine Bilirubin (LAB) NEGATIVE, Bedside Urine Urobilinogen (LAB) NORMAL, Bedside Urine Leukocyte Esterase (L NEGATIVE, Urine WBC NONE SEEN, Urine RBC 5-7H, Urine Squamous Epithelial Cells SMALL AMOUNT, Urine Bacteria NONE SEEN, Urine Hyaline Casts NONE SEEN, Urine Amorphous Sediment SMALL AMOUNTH, Urine Sediment Examination PERFORMED 04/06/17 02:08: Lactic Acid Followup at 4 Hours 3.2*H 04/06/17 02:09: Differential Slide Review Report, Differential Pathologist's Review COMPREHENSIVE REVIEW, Peripheral Blood Smear Path Consult PERIPHERAL SMEAR 04/06/17 05:47: Prothrombin Time 15.2H, Prothromb Time International Ratio 1.18, Activated Partial Thromboplast Time 27.2, Anion Gap 10, Glomerular Filtration Rate 36.4L, Blood Urea Nitrogen 40H, Creatinine 1.95H, Sodium Level 140, Potassium Level 5.6H, Chloride Level 111H, Carbon Dioxide Level 19L, Calcium Level 8.4#L, Aspartate Amino Transf (AST/SGOT) 43H, Alanine Aminotransferase (ALT/SGPT) 19, Alkaline Phosphatase 81, Total Bilirubin 0.3, Total Protein 6.0L, Albumin 2.4#L , Magnesium Level 2.1, Albumin/Globulin Ratio 0.67L 04/06/17 15:52: Prothrombin Time 15.0H, Mix PT Patient/Normal 1:1 Immediate 13.6, Blood Urea Nitrogen 41H, Creatinine 1.84H, Sodium Level 142, Potassium Level 5.4H, Chloride Level 112H, Carbon Dioxide Level 22, Anion Gap 8, Glomerular Filtration Rate 38.9L, Calcium Level 8.2L, Phosphorus Level 4.1, Albumin 2.6L Microbiology Microbiology 04/05/17 Blood Culture - Preliminary, Resulted No growth after 24 hours . All specim... 04/05/17 Blood Culture - Preliminary, Resulted No growth after 24 hours . All specim... 04/05/17 Urine Culture, Received Pending Assessment/Plan PLAN: 1. Lumbar spinal stenosis and wedge fracture of L3 and L5. S/p posterior decompression with laminectomy L3, L4, L5, S1, and partial L2 with bilateral facetectomy L3-L4, L4-5 and L5-S1 and partial facetectomy L2-L3 with bone graft placed from L2-S1. Removal of interspinous hardware at L5. 2. Anemia: will order CBC q 6 hrs to closely monitor his H and H. He has been seen by hematology yesterday and was given 2 units of platelets. 3. Bowel distention: Noted on CT. Keep patient nothing by mouth. 4. Osteopenia: Plan per hospitalist. 5. Wound care: appear to be healing well. Will plan to keep NANI drains at least another day. 6. Pain control: Satisfactory. 7. DVT prophylaxis: TEDs and SCD. 8. Constipation prophylaxis: Still no BM, but is passing gas. He is taking lactulose 30 mL TID. 9. Diet : currently NPO d/t abdomen distention on CT. 10. Activity: Bed rest until TLSO brace received by Florentino navarro. Brace has been ordered. 11. Discharge plan: Dr. Luque would like him to have a TLSO brace and bone stimulator. We will place order for TLSO and bone stimulator. Thank you for all consulting providers for your much needed help regarding care of Mr. Maza. Medications Scheduled Losartan Potassium (Losartan Potassium), 25 MG PO DAILY, (Reported) Sertraline Hcl (Sertraline HCl), 50 MG PO DAILY, (Reported) Scheduled PRN Acetaminophen (Tylenol), 650 MG PO Q4H PRN for PAIN / FEVER, (Reported) Tizanidine Hydrochloride (Zanaflex), 2 MG PO Q4H PRN for PAIN, (Reported) Allergies Allergies: Coded Allergies: No Known Drug Allergy (Verified Allergy, Unknown, 03/11/17) NO KNOWN per PATIENT LESLYE GOVEA PA-C Apr 06, 2017 21:48
[2017-04-07 13:29] LABS: MEAN CORPUSCULAR HEMOGLOBIN 31.3 pg (27.0-33.0); MEAN CORPUSCULAR VOLUME 92.2 fl (80.0-96.0); WHITE BLOOD COUNT 8.3 K/mm3 (4.0-10.0)
[2017-04-07] MEDS: ONDANSETRON 4MG/2ML VIAL (J2405) IV PRN (14:48)
[2017-04-07] MEDS ORDERED: PROMETHAZINE INJ 25 MG/ML VIAL (J2550) IM PRN (15:30)
[2017-04-07] MEDS: NS 1,000 ML IV SCH ×2 (16:08→23:28)
[2017-04-07 17:38] LABS: MEAN CORPUSCULAR HEMOGLOBIN 29.8 pg (27.0-33.0); MEAN CORPUSCULAR HGB CONC 32.5 g/dl (32.0-36.5); MEAN CORPUSCULAR VOLUME 91.9 fl (80.0-96.0); RED CELL DISTRIBUTION WIDTH 16.9 % (11.5-14.5); WHITE BLOOD COUNT 8.6 K/mm3 (4.0-10.0)
[2017-04-08] VITALS: BP 145/72
[2017-04-08 00:27] LABS: MEAN CORPUSCULAR HEMOGLOBIN 30.8 pg (27.0-33.0); MEAN CORPUSCULAR HGB CONC 33.7 g/dl (32.0-36.5); MEAN CORPUSCULAR VOLUME 91.5 fl (80.0-96.0); RED CELL DISTRIBUTION WIDTH 17.2 % (11.5-14.5)
[2017-04-08 04:00] VITALS: BP 143/67
[2017-04-08] MEDS: ACETAMINOPHEN 650 MG SUPP PR SCH ×2 (04:00→07:38)
[2017-04-08] MEDS: NS 1,000 ML IV SCH ×3 (05:20→18:15)
[2017-04-08 06:28] LABS: MEAN CORPUSCULAR HEMOGLOBIN 30.7 pg (27.0-33.0); MEAN CORPUSCULAR HGB CONC 33.7 g/dl (32.0-36.5); MEAN CORPUSCULAR VOLUME 91.2 fl (80.0-96.0); RED CELL DISTRIBUTION WIDTH 16.8 % (11.5-14.5); WHITE BLOOD COUNT 7.6 K/mm3 (4.0-10.0)
[2017-04-08 06:36] LABS: INR 1.23
[2017-04-08 06:42] LABS: CALCIUM LEVEL 7.9 MG/DL (8.8-10.2); CREATININE FOR GFR 1.48 MG/DL (0.70-1.30); MAGNESIUM LEVEL 2.1 MG/DL (1.8-2.4)
[2017-04-08 07:40] VITALS: BP 126/60
[2017-04-08] MEDS: ACETAMINOPHEN TAB 650MG DOSE (2X325MG) PO SCH ×5 (09:00→21:11)
[2017-04-08] MEDS: LACTULOSE 20 GM/30 ML SYRUP UD PO SCH ×3 (09:00→21:12)
[2017-04-08] MEDS: ONDANSETRON 4MG/2ML VIAL (J2405) IV PRN (09:48)
--- NOTE | 2017-04-08 13:16 | IPN ---
DATE: 04/07/2017 ADDENDUM I did have an opportunity to stop by and see the patient later in the day. He has had difficulty with further abdominal distension, nausea, and vomiting times two now, but he denying any worsening abdominal pain. Given the fact that his KUB did suggest an ileus versus an early small-bowel obstruction, and he is unable to tolerate clear liquid diet at this time, I am going to make a recommendation that we making him nothing by mouth overnight. Continue the intravenous (IV) fluids. I will add on Phenergan 12.5 mg every 6 hour as needed and will place a nasogastric (NG) tube to lower intermittent suction. Will see how he is doing in the morning, and it is possible that we could try clamping the tube tomorrow morning and seeing if we can try again at trying the clear liquids. I did explain to Mr. Maza that it is not uncommon after many types of surgery that the general anesthesia and pain medication sometimes will cause problems with constipation as well as a postoperative ileus. Hopefully this can be easily remedied by giving him some bowel rest overnight and decompress the gastric tract with an NG tube to lower intermittent suction. Again, I did hold off on the Os-Scooby D that has been recommended by his cco & president as an outpatient. I would recommend that we not use this, since this can cause constipation, especially in this acute phase, but it would be advisable that once he is discharged that he goes on this supplementation as well. At any rate, I will stop back by tomorrow morning to re-evaluate the patient.
--- NOTE | 2017-04-08 13:17 | REP ---
Portable abdomen, single AP view, the patient supine: Comparisons are 04/07/2017 and 01/25/2017. Additionally there is a comparison CT of the abdomen dated 01/08 2015. The dilated bowel loops identified and 04/06/2017 are not significantly changed. This is nonspecific and could represent ileus or obstruction. There are numerous artifacts superimposed over the abdomen of uncertain significance. These could be tubing or abdominal surgical drains. They are unchanged from 04/07/2017. There are numerous surgical clips in the abdomen on the right. The patient has a known right nephrectomy. There are multiple calcifications in the abdominal right upper quadrant. Some of these could be gallbladder calculi. Others could be calcified mesenteric nodes. They are unchanged from all prior studies. On 01/25/2017 there was no L4-5 spinous process stabilizer. This is no longer present. There are surgical clips in the pelvis on the left, unchanged. Impression: The bowel gas pattern is unchanged with nonspecific dilated bowel loops, ileus versus obstruction. Signed by Joshua Iqbal MD 04/08/2017 07:58 A
[2017-04-08 13:29] LABS: MEAN CORPUSCULAR HEMOGLOBIN 30.5 pg (27.0-33.0); MEAN CORPUSCULAR HGB CONC 33.4 g/dl (32.0-36.5); MEAN CORPUSCULAR VOLUME 91.3 fl (80.0-96.0); RED CELL DISTRIBUTION WIDTH 16.8 % (11.5-14.5); WHITE BLOOD COUNT 7.5 K/mm3 (4.0-10.0)
[2017-04-08] MEDS: PANTOPRAZOLE 40MG INJ (PROTONIX) (C9113) IV SCH (15:25)
[2017-04-08] MEDS: METOCLOPRAMIDE 5 MG TAB PO SCH ×3 (15:26→21:11)
--- NOTE | 2017-04-08 19:40 | ECGEPIP ---
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
[2017-04-08 22:00] VITALS: BP 139/66
--- NOTE | 2017-04-08 22:28 | IPNPDOC ---
General Date: Apr 08, 2017 Postoperative Day #: 3 Surgical Procedure Posterior decompression with laminectomy L3, L4, L5, S1, and partial L2 with bilateral facetectomy L3-L4, L4-5 and L5-S1 and partial facetectomy L2-L3 with bone graft placed from L2-S1. Removal of interspinous hardware at L5. Repair of 3 dural tears. Bone marrow aspiration from L5 sent for biopsy. Subjective New Symptoms Mr Maza is a pleasant 71 year old gentleman with a history of whole body radiation, multiple myeloma, hypertension, CK D3 and absent kidney who has been admitted to the hospital for a planned complex spine surgery of L2-S1 decompression and fusion for compression fractures at L3 and L5 by Dr. Luque. He has mild discomfort over the incision but states its tolerable. Tylenol is helping with his pain. He slept well last night. He offers no other concerns. He is scheduled to receive his new brace today around 2pm. Denies chills, night sweats, headache, dizziness, bladder or bowel incontinence , calf or leg pain, chest pain, or shortness of breath. Objective Clinical Status: AVSS. Neurological status: Alert and orientated times three, GCS=[id number]=65. Speech is Fluent. NANI Drain= 10 cc from right upper drain, 11 cc from left upper drain. 0 cc from lower right and 10 cc from left lower drain. Wound/incision: Incision appears to be healing well. No increased drainage, erythema, or increased pain at the site. Motor: R=L=UE=LE. Moving all four limbs. No pronator drift. LABS WBC: 7.5 HGB:8.3 (8.1, 8.6) HCT: 24.8 (24.0, 25,5) Na+: 143 K+: 4.0 Laboratory Results Vital Signs Date Time Temp Pulse Resp B/P (MAP) Pulse Ox O2 Delivery O2 Flow Rate FiO2 04/08/17 08:00 Room Air 04/08/17 07:40 99.2 71 18 126/60 (82) 95 04/05/17 20:15 2 I&O- Last 24 Hours up to 6 AM 04/08/17 06:00 Intake Total 3300 ml Output Total 2283 ml Balance 1017 ml Laboratory Tests 04/08/17 00:11 Red Blood Count 2.78 L, Mean Corpuscular Volume 91.5, Mean Corpuscular Hemoglobin 30.8, Mean Corpuscular Hemoglobin Concent 33.7, Red Cell Distribution Width 17.2 H 04/08/17 06:15 Red Blood Count 2.63 L, Mean Corpuscular Volume 91.2, Mean Corpuscular Hemoglobin 30.7, Mean Corpuscular Hemoglobin Concent 33.7, Red Cell Distribution Width 16.8 H, Calcium Level 7.9 L 04/08/17 13:12 Red Blood Count 2.72 L, Mean Corpuscular Volume 91.3, Mean Corpuscular Hemoglobin 30.5, Mean Corpuscular Hemoglobin Concent 33.4, Red Cell Distribution Width 16.8 H Laboratory Tests 2 04/08/17 06:15: Prothrombin Time 15.7H, Prothromb Time International Ratio 1.23, Activated Partial Thromboplast Time 33.5, Anion Gap 10, Glomerular Filtration Rate 50.0, Blood Urea Nitrogen 30H, Creatinine 1.48H, Sodium Level 143, Potassium Level 4.0 , Chloride Level 111H, Carbon Dioxide Level 22, Calcium Level 7.9L, Magnesium Level 2.1 Microbiology 04/05/17 Blood Culture - Preliminary, Resulted No Growth after 72 hours. All specime... 04/05/17 Blood Culture - Preliminary, Resulted No Growth after 72 hours. All specime... 04/05/17 Urine Culture - Final, Complete Assessment/Plan PLAN: 1. Lumbar spinal stenosis and wedge fracture of L3 and L5. S/p posterior decompression with laminectomy L3, L4, L5, S1, and partial L2 with bilateral facetectomy L3-L4, L4-5 and L5-S1 and partial facetectomy L2-L3 with bone graft placed from L2-S1. Removal of interspinous hardware at L5. Receiving brace today at 2pm. 2. Bowel distension: NG tube placed. Management per hospitalist. 2. Anemia: will order CBC q 6 hrs to closely monitor his H and H. 4. Osteopenia: Plan per hospitalist. 5. Wound care: appear to be healing well. Will likely be able to remove drains today or tomorrow. Will await further orders per Dr. Luque. 6. Pain control: Satisfactory. 7. DVT prophylaxis: TEDs and SCD. 8. Constipation prophylaxis: Cont lactulose 30 mL TID. 9. Diet : currently NPO d/t abdomen distention on CT. 10. Activity: Bed rest until brace received, scheduled for around 2pm today. Brace has been ordered. 11. Discharge plan: Dr. Luque would like him to have a shell brace and bone stimulator. Transfer to PCU? Waiting orders for Dr. Luque. Pending order for bone stimulator. Thank you for all consulting providers for your much needed help regarding care of Mr. Maza. Current Medications Current Medications Acetaminophen (Tylenol Suppository) 650 mg Q4H IN Last administered on 17:00; Start 04/06/17 at 08:00; Stop 04/08/17 at 09:05; Status DC Acetaminophen (Tylenol Suppository) 650 mg Q4H IN ; Start 04/06/17 at 09:00; Stop 04/06/17 at 09:23; Status DC Acetaminophen (Tylenol Suppository) 650 mg Q4H IN ; Start 04/06/17 at 09:00; Stop 05/06/17 at 08:59; Status Cancel Acetaminophen (Tylenol Suppository) 650 mg Q6HP PRN IN PAIN / FEVER; Start at 08:30; Stop 04/06/17 at 08:33; Status DC Acetaminophen (Tylenol Tab) 650 mg Q4H PO Last administered on 04/08/17 21:11 ; Start 04/08/17 at 09:00; Stop 05/08/17 at 08:59 Acetaminophen/ Hydrocodone Bitart ([place], Anexsia 5/325) 1 tab Q4HP PRN PO MODERATE PAIN (PS 5-7) Last administered on 04/06/17 02:06; Start 04/05/17 at 19:45; Stop 04/06/17 at 08:26; Status DC Calcium/Vitamin D (Oscal D) 500 mg BID PO Last administered on 04/07/17 11:40 ; Start 04/07/17 at 09:00; Stop 04/07/17 at 12:46; Status DC Cefuroxime Sodium 750 mg/Dextrose 50 ml @ 100 mls/hr Q8H IV Last administered on 04/06/17 12:36; Start 04/05/17 at 20:00; Stop 04/06/17 at 12:29; Status DC Docusate Sodium (Colace) 100 mg BID PO ; Start 04/05/17 at 21:00; Stop 04/06/17 at 08:33; Status DC Fentanyl Citrate (Sublimaze) 25 mcg Q5MP PRN IV MODERATE PAIN (PS 4-7) Last administered on 04/05/17 20:11; Start 04/05/17 at 19:30; Stop 04/05/17 at 20:30 ; Status DC Lactated Ringer's 1,000 ml @ 100 mls/hr Q10H IV ; Start 04/05/17 at 19:30; Stop 04/05/17 at 20:30; Status DC Lactobacillus Acidophilus (Bacid) 1 ea BID PO ; Start 04/05/17 at 21:00; Stop at 08:33; Status DC Lactulose (Cephulac) 30 ml TID PO Last administered on 04/08/17 21:12; Start 04/06/17 at 09:00; Stop 05/06/17 at 08:59 Losartan Potassium (Cozaar) 25 mg DAILY PO ; Start 04/06/17 at 09:00; Stop 04/06 at 09:00; Status DC Metoclopramide HCl (REGLAN INJection) 10 mg Q6HP PRN IV NAUSEA OR VOMITING; Start 04/05/17 at 19:30; Stop 04/05/17 at 20:30; Status DC Metoclopramide HCl (Reglan) 5 mg QID PO Last administered on 04/08/17 21:11; Start 04/08/17 at 13:00; Stop 05/08/17 at 12:59 Miscellaneous (Unresolved Clarification Entry) SEE LABEL COMMENTS UNRESOLVED XX ; Start 04/05/17 at 00:01; Stop 04/06/17 at 08:33; Status DC Morphine Sulfate (Morphine Sulfate Inj) 2 mg Q2HP PRN IV SEVERE PAIN (PS 8-10) Last administered on 04/06/17 23:31; Start 04/05/17 at 19:45; Stop 04/12/17 at 19:44 Ondansetron HCl (ZOFRAN INJection) 4 mg Q4HP PRN IV NAUSEA OR VOMITING; Start 04/05/17 at 19:30; Stop 04/05/17 at 20:30; Status DC Ondansetron HCl (ZOFRAN INJection) 4 mg Q4HP PRN IV NAUSEA Last administered on 04/08/17 09:48; Start 04/05/17 at 19:45; Stop 05/05/17 at 19:44 Oxycodone/ Acetaminophen (Percocet 5mg/ 325mg Tablet) 1 tab ASDIRECTED PRN PO MILD/MODERATE PAIN (PS 1-7); Start 04/05/17 at 19:30; Stop 04/05/17 at 20:30; Status DC Pantoprazole Sodium (Protonix) 40 mg Q24H IV Last administered on 04/08/17 15: 25; Start 04/08/17 at 09:00; Stop 05/08/17 at 08:59 Potassium Chloride/Sodium Chloride 1,000 ml @ 120 mls/hr Q8H20M IV Last administered on 04/06/17 08:08; Start 04/05/17 at 19:45; Stop 04/06/17 at 08:49 ; Status DC Promethazine HCl (PHENERGAN INJection) 12.5 mg Q6HP PRN IM NAUSEA Last administered on 04/07/17 20:36; Start 04/07/17 at 15:30; Stop 05/07/17 at 15:29 Sertraline HCl (Zoloft) 50 mg DAILY PO ; Start 04/06/17 at 09:00; Stop 04/06/17 at 09:00; Status DC Sodium Chloride 1,000 ml @ 100 mls/hr Q10H IV Last administered on 04/08/17 18:15; Start 04/08/17 at 18:15; Stop 05/08/17 at 18:14 Sodium Chloride 1,000 ml @ 120 mls/hr Q8H20M IV Last administered on 10:16; Start 04/06/17 at 09:00; Stop 04/07/17 at 15:30; Status DC Sodium Chloride 1,000 ml @ 150 mls/hr Q6H40M IV Last administered on 11:33; Start 04/07/17 at 16:00; Stop 04/08/17 at 18:05; Status DC Tizanidine HCl (Zanaflex) 2 mg DAILY PO ; Start 04/06/17 at 09:00; Stop at 09:00; Status DC Allergies Allergies: Coded Allergies: No Known Drug Allergy (Verified Allergy, Unknown, 03/11/17) NO KNOWN per PATIENT LESLYE GOVEA PA-C Apr 08, 2017 22:08
[2017-04-09 01:22] LABS: MEAN CORPUSCULAR HEMOGLOBIN 31.1 pg (27.0-33.0); MEAN CORPUSCULAR HGB CONC 34.3 g/dl (32.0-36.5); MEAN CORPUSCULAR VOLUME 90.9 fl (80.0-96.0); PLATELET COUNT, AUTOMATED 117 k/mm3 (150-450); RED CELL DISTRIBUTION WIDTH 16.3 % (11.5-14.5); WHITE BLOOD COUNT 6.6 K/mm3 (4.0-10.0)
[2017-04-09] MEDS: ACETAMINOPHEN TAB 650MG DOSE (2X325MG) PO SCH ×6 (02:50→21:53)
[2017-04-09] MEDS: NS 1,000 ML IV SCH ×2 (05:52→17:14)
[2017-04-09 06:00] VITALS: BP 146/71
[2017-04-09 06:43] LABS: MEAN CORPUSCULAR HEMOGLOBIN 31.3 pg (27.0-33.0); MEAN CORPUSCULAR HGB CONC 34.4 g/dl (32.0-36.5); MEAN CORPUSCULAR VOLUME 90.9 fl (80.0-96.0); RED CELL DISTRIBUTION WIDTH 16.6 % (11.5-14.5); WHITE BLOOD COUNT 6.9 K/mm3 (4.0-10.0)
[2017-04-09 06:49] LABS: INR 1.24
[2017-04-09 07:04] LABS: ALBUMIN 2.1 GM/DL (3.2-5.2); ALBUMIN/GLOBULIN RATIO 0.53 (1.00-1.93); BILIRUBIN,TOTAL 0.3 MG/DL (0.2-1.0); CALCIUM LEVEL 8.4 MG/DL (8.8-10.2); CREATININE FOR GFR 1.53 MG/DL (0.70-1.30); GLOMERULAR FILTRATION RATE 48.1 (>42); MAGNESIUM LEVEL 2.3 MG/DL (1.8-2.4); POTASSIUM SERUM 3.9 MEQ/L (3.5-5.1); TOTAL PROTEIN 6.1 GM/DL (6.4-8.2)
[2017-04-09 08:06] LABS: F8 ACTIVITY FOR F8 PANEL 248 % (57-163); F8 ACTIVITY vWB FOR F8 PANEL 432 % (50-200); F8 ANTIGEN FOR F8 PANEL 353 % (50-200); INTERPRETATION: Note (.)
[2017-04-09] MEDS: PANTOPRAZOLE 40MG INJ (PROTONIX) (C9113) IV SCH (10:33)
[2017-04-09] MEDS: LACTULOSE 20 GM/30 ML SYRUP UD PO SCH ×3 (10:33→21:53)
[2017-04-09] MEDS: METOCLOPRAMIDE 5 MG TAB PO SCH ×4 (10:33→21:53)
[2017-04-09 10:51] LABS: RETIC HEMOGLOBIN CONTENT CHr 31.2 PG (24-36); RETICULOCYTE ABSOLUTE ADVIA212 56 x10(9)/L (17-77)
[2017-04-09 11:07] LABS: REASON FOR REVIEW ANEMIA / RBC MORPH
[2017-04-09 11:26] LABS: PERCENT SATURATION 19.4 % (19.7-50.0)
[2017-04-09 12:51] LABS: MEAN CORPUSCULAR HEMOGLOBIN 29.6 pg (27.0-33.0); MEAN CORPUSCULAR HGB CONC 32.5 g/dl (32.0-36.5); MEAN CORPUSCULAR VOLUME 91.2 fl (80.0-96.0); RED CELL DISTRIBUTION WIDTH 16.5 % (11.5-14.5); WHITE BLOOD COUNT 6.8 K/mm3 (4.0-10.0)
[2017-04-09 14:00] VITALS: BP 144/73
--- NOTE | 2017-04-09 14:56 | IPN ---
DATE: 04/09/2017 71-year-old gentleman seen at bedside. No overnight issues reported. He feels he is resting comfortably. Nasogastric tube is in place. He denies any abdominal pain. No nausea or vomiting. I did ask Dr. Seymour to see the patient yesterday on consult since his postoperative ileus does appear to be lasting longer than what I would have anticipated. He does still have some intermittent bilious material by intermittent suction. He did receive 1 unit of packed red blood cells yesterday and has had little improvement in his hemoglobin and hematocrit, albeit he is on fluids which may cause hemodilution and does have an underlying history of hematologic issues. OBJECTIVE: VITAL SIGNS: Temperature is 97.8, pulse 61, respiratory rate 18, blood pressure 146/71, SpO2 is 93% on room air. GENERAL: The patient appears to be in no acute distress, alert and oriented. HEENT: Unremarkable. LUNGS: Clear. HEART: Regular rate and rhythm. ABDOMEN: Soft, distended. Positive bowel sounds. No masses or rebound. He continues to be able to pass flatus. LABORATORY DATA: White count 6.8, hemoglobin 8.6, unchanged from yesterday after receiving 1 unit of blood, platelets are 134,000. Sodium 145, potassium 3.9, chloride 112, bicarbonate 25, anion gap 8, BUN 32, creatinine 1.53, glucose 89, calcium 8.4, total iron is 31, total iron binding capacity is 160, transferrin is pending. Ferritin is 736, albumin is 2.1. B12 and folate is pending at this time. Reticulocyte count is 31.2. Urine cultures and blood cultures remain negative. ASSESSMENT/PLAN: 1. Acute on chronic anemia, which appears to be multifactorial. He does have what appears to have anemia of chronic disease, as well as underlying history of multiple myeloma and B-cell lymphoma. He follows with hematology and oncology. He is currently receiving 2 units of packed red blood cells. We will go ahead and add on supplemental iron as well. 2. Chronic low back pain with lumbar decompression and fusion by neurology. Deferred pain management to neurology, as well as physical therapy (PT), and braces by neurosurgery. 3. Abdominal distension with possible postop ileus. Appreciate Dr. Seymour's input. We will continue with NG tube. We did get gastric contents for occult blood, which does appear to be positive. We will reach out to Dr. Seymour regarding this as well. The patient may benefit from some IV Nexium. 4. Depression, stable. 5. Morbid obesity, which complicates medical care. 6. Hypertension, stable. Continue to follow 7. Gout. 8. History of hyperparathyroidism. 9. Vitamin D deficiency. I have held the calcium supplementation since that may constipate him. We will start this on discharge. 10. History of transitional cell carcinoma of the blood, status post partial cystectomy and nephrectomy. Can followup with urology as an outpatient. 11. Deep vein thrombosis (DVT) prophylaxis with ZORAIDA and sequential. MTDD
--- NOTE | 2017-04-09 20:25 | IPNPDOC ---
General Date: Apr 09, 2017 Postoperative Day #: 4 Pain Control Satisfactory. Surgical Procedure Posterior decompression with laminectomy L3, L4, L5, S1, and partial L2 with bilateral facetectomy L3-L4, L4-5 and L5-S1 and partial facetectomy L2-L3 with bone graft placed from L2-S1. Removal of interspinous hardware at L5. Repair of 3 dural tears. Bone marrow aspiration from L5 sent for biopsy. Subjective New Symptoms Mr Maza is a pleasant 71 year old gentleman with a history of whole body radiation, multiple myeloma, hypertension, CK D3 and absent kidney who has been admitted to the hospital for a planned complex spine surgery of L2-S1 decompression and fusion for compression fractures at L3 and L5 by Dr. Luque. He has mild discomfort over the incision but states its tolerable with Tylenol. He appears to be in good spirits. He is sleeping well. He has received his new brace and was able to get up while wearing it. He offers no other concerns. Denies chills, night sweats, headache, dizziness, bladder or bowel incontinence, calf or leg pain, chest pain, or shortness of breath. Objective Clinical Status: AVSS. Neurological status: Alert and orientated times three, GCS=[id number]. Speech is Fluent. NANI Drain= Drainage from over night: 10 cc from right upper drain, 10 cc from left upper drain. 10 cc from lower right and 15 cc from left lower drain. Per Dr. Luque's order, I have removed the drains. There was significant amount of clear pink tinged drainage from each of the drain sites; more significant on the top two drains which were located deep. Will have to continue to change the dressings PRN. Wound/incision: Incision appears to be healing well. No erythema, or increased pain at the site. Perineo dressing is intact over the vertical midline incision. Motor: R=L=UE=LE. Moving all four limbs. No pronator drift. No new findings on exam today. Laboratory Results Vital Signs Date Time Temp Pulse Resp B/P (MAP) Pulse Ox O2 Delivery O2 Flow Rate FiO2 04/09/17 14:00 98.0 64 19 144/73 (96) 95 Room Air 04/05/17 20:15 2 I&O- Last 24 Hours up to 6 AM 04/09/17 06:00 Intake Total 1860 ml Output Total 1215 ml Balance 645 ml Laboratory Tests 04/09/17 01:15 Red Blood Count 2.75 L, Mean Corpuscular Volume 90.9, Mean Corpuscular Hemoglobin 31.1, Mean Corpuscular Hemoglobin Concent 34.3, Red Cell Distribution Width 16.3 H 04/09/17 06:25 Red Blood Count 2.76 L, Mean Corpuscular Volume 90.9, Mean Corpuscular Hemoglobin 31.3, Mean Corpuscular Hemoglobin Concent 34.4, Red Cell Distribution Width 16.6 H, Calcium Level 8.4 L, Aspartate Amino Transf (AST/SGOT ) 33, Alanine Aminotransferase (ALT/SGPT) 15, Alkaline Phosphatase 62, Total Bilirubin 0.3, Total Protein 6.1 L, Albumin 2.1 L 04/09/17 12:41 Red Blood Count 2.90 L, Mean Corpuscular Volume 91.2, Mean Corpuscular Hemoglobin 29.6, Mean Corpuscular Hemoglobin Concent 32.5, Red Cell Distribution Width 16.5 H 04/09/17 16:14 Laboratory Tests 2 04/09/17 01:15: Differential Slide Review Report, Differential Pathologist's Review ANEMIA / RBC MORPH, Peripheral Blood Smear Path Consult PERIPHERAL SMEAR, Absolute Reticulocyte Count 56, Percent Reticulocyte Count 2.00H, Reticulocyte Hgb Content (CHr) 31.2 04/09/17 06:25: Prothrombin Time 15.8H, Prothromb Time International Ratio 1.24, Activated Partial Thromboplast Time 34.5, Anion Gap 8, Glomerular Filtration Rate 48.1, Blood Urea Nitrogen 32H, Creatinine 1.53H, Sodium Level 145, Potassium Level 3.9 , Chloride Level 112H, Carbon Dioxide Level 25, Calcium Level 8.4L, Aspartate Amino Transf (AST/SGOT) 33, Alanine Aminotransferase (ALT/SGPT) 15, Alkaline Phosphatase 62, Total Bilirubin 0.3, Total Protein 6.1L, Albumin 2.1L, Magnesium Level 2.3, Iron Level 31L, Total Iron Binding Capacity 160L, Transferrin % Saturation 19.4L, Ferritin 736H, Albumin/Globulin Ratio 0.53L 04/09/17 12:41: Vitamin B12 Level 323, Folate 8.0 Microbiology 04/05/17 Blood Culture - Preliminary, Resulted No Growth after 72 hours. All specime... 04/05/17 Blood Culture - Preliminary, Resulted No Growth after 72 hours. All specime... 04/09/17 Occult Blood - Final, Complete 04/09/17 Stool Occult Blood (DANIEL) - Final, Complete 04/05/17 Urine Culture - Final, Complete Assessment/Plan PLAN: 1. Lumbar spinal stenosis and wedge fracture of L3 and L5. S/p posterior decompression with laminectomy L3, L4, L5, S1, and partial L2 with bilateral facetectomy L3-L4, L4-5 and L5-S1 and partial facetectomy L2-L3 with bone graft placed from L2-S1. Removal of interspinous hardware at L5. Improving. Continue with PT. D/C pandya. Additional plans per Dr. Luque. 2. Bowel distension: NG tube placed. Management per hospitalist. 2. Anemia: Management per hospitalist. 4. Osteopenia: Management per hospitalist. 5. Wound care: appear to be healing well. Drains have been removed today without difficulty. They are draining what appears to be serous drainage. Will need to continue changing dressings PRN given the amount of discharge after drain removal. 6. Pain control: Satisfactory. 7. DVT prophylaxis: TEDs and SCD. 8. Constipation prophylaxis: Cont lactulose 30 mL TID. 9. Diet : clear liquids. 10. Activity: with supervision. Thank you for all consulting providers for your much needed help regarding care of Mr. Maza. Current Medications Current Medications Acetaminophen (Tylenol Suppository) 650 mg Q4H VT Last administered on t 17:00; Start 04/06/17 at 08:00; Stop 04/08/17 at 09:05; Status DC Acetaminophen (Tylenol Suppository) 650 mg Q4H VT ; Start 04/06/17 at 09:00; Stop 04/06/17 at 09:23; Status DC Acetaminophen (Tylenol Suppository) 650 mg Q4H VT ; Start 04/06/17 at 09:00; Stop 05/06/17 at 08:59; Status Cancel Acetaminophen (Tylenol Suppository) 650 mg Q6HP PRN VT PAIN / FEVER; Start at 08:30; Stop 04/06/17 at 08:33; Status DC Acetaminophen (Tylenol Tab) 650 mg Q4H PO Last administered on 04/09/17 18:08 ; Start 04/08/17 at 09:00; Stop 05/08/17 at 08:59 Acetaminophen/ Hydrocodone Bitart (Mouthcard, Anexsia 5/325) 1 tab Q4HP PRN PO MODERATE PAIN (PS 5-7) Last administered on 04/06/17 02:06; Start 04/05/17 at 19:45; Stop 04/06/17 at 08:26; Status DC Calcium/Vitamin D (Oscal D) 500 mg BID PO Last administered on 04/07/17 11:40 ; Start 04/07/17 at 09:00; Stop 04/07/17 at 12:46; Status DC Cefuroxime Sodium 750 mg/Dextrose 50 ml @ 100 mls/hr Q8H IV Last administered on 04/06/17 12:36; Start 04/05/17 at 20:00; Stop 04/06/17 at 12:29; Status DC Docusate Sodium (Colace) 100 mg BID PO ; Start 04/05/17 at 21:00; Stop 04/06/17 at 08:33; Status DC Fentanyl Citrate (Sublimaze) 25 mcg Q5MP PRN IV MODERATE PAIN (PS 4-7) Last administered on 04/05/17 20:11; Start 04/05/17 at 19:30; Stop 04/05/17 at 20:30 ; Status DC Lactated Ringer's 1,000 ml @ 100 mls/hr Q10H IV ; Start 04/05/17 at 19:30; Stop 04/05/17 at 20:30; Status DC Lactobacillus Acidophilus (Bacid) 1 ea BID PO ; Start 04/05/17 at 21:00; Stop at 08:33; Status DC Lactulose (Cephulac) 30 ml TID PO Last administered on 04/09/17 18:08; Start 04/06/17 at 09:00; Stop 05/06/17 at 08:59 Losartan Potassium (Cozaar) 25 mg DAILY PO ; Start 04/06/17 at 09:00; Stop 04/06 at 09:00; Status DC Metoclopramide HCl (REGLAN INJection) 10 mg Q6HP PRN IV NAUSEA OR VOMITING; Start 04/05/17 at 19:30; Stop 04/05/17 at 20:30; Status DC Metoclopramide HCl (Reglan) 5 mg QID PO Last administered on 04/09/17 18:08; Start 04/08/17 at 13:00; Stop 05/08/17 at 12:59 Miscellaneous (Unresolved Clarification Entry) SEE LABEL COMMENTS UNRESOLVED XX ; Start 04/05/17 at 00:01; Stop 04/06/17 at 08:33; Status DC Morphine Sulfate (Morphine Sulfate Inj) 2 mg Q2HP PRN IV SEVERE PAIN (PS 8-10) Last administered on 04/06/17 23:31; Start 04/05/17 at 19:45; Stop 04/12/17 at 19:44 Ondansetron HCl (ZOFRAN INJection) 4 mg Q4HP PRN IV NAUSEA OR VOMITING; Start 04/05/17 at 19:30; Stop 04/05/17 at 20:30; Status DC Ondansetron HCl (ZOFRAN INJection) 4 mg Q4HP PRN IV NAUSEA Last administered on 04/08/17 09:48; Start 04/05/17 at 19:45; Stop 05/05/17 at 19:44 Oxycodone/ Acetaminophen (Percocet 5mg/ 325mg Tablet) 1 tab ASDIRECTED PRN PO MILD/MODERATE PAIN (PS 1-7); Start 04/05/17 at 19:30; Stop 04/05/17 at 20:30; Status DC Pantoprazole Sodium (Protonix) 40 mg Q24H IV Last administered on 04/09/17 10: 33; Start 04/08/17 at 09:00; Stop 05/08/17 at 08:59 Potassium Chloride/Sodium Chloride 1,000 ml @ 120 mls/hr Q8H20M IV Last administered on 04/06/17 08:08; Start 04/05/17 at 19:45; Stop 04/06/17 at 08:49 ; Status DC Promethazine HCl (PHENERGAN INJection) 12.5 mg Q6HP PRN IM NAUSEA Last administered on 04/07/17 20:36; Start 04/07/17 at 15:30; Stop 05/07/17 at 15:29 Sertraline HCl (Zoloft) 50 mg DAILY PO ; Start 04/06/17 at 09:00; Stop 04/06/17 at 09:00; Status DC Sodium Chloride 1,000 ml @ 100 mls/hr Q10H IV Last administered on 04/09/17 17:14; Start 04/08/17 at 18:15; Stop 05/08/17 at 18:14 Sodium Chloride 1,000 ml @ 120 mls/hr Q8H20M IV Last administered on 10:16; Start 04/06/17 at 09:00; Stop 04/07/17 at 15:30; Status DC Sodium Chloride 1,000 ml @ 150 mls/hr Q6H40M IV Last administered on 11:33; Start 04/07/17 at 16:00; Stop 04/08/17 at 18:05; Status DC Tizanidine HCl (Zanaflex) 2 mg DAILY PO ; Start 04/06/17 at 09:00; Stop at 09:00; Status DC Allergies Allergies: Coded Allergies: No Known Drug Allergy (Verified Allergy, Unknown, 03/11/17) NO KNOWN per PATIENT LESLYE GOVEA PA-C Apr 09, 2017 20:23
[2017-04-09 22:00] VITALS: BP 148/70
--- NOTE | 2017-04-10 00:01 | IPN ---
DATE OF SERVICE: 04/08/2017 71-year-old gentleman seen at bedside resting relatively comfortably. He has a nasogastric (NG) tube in place, status post lumbar decompression and fusion by neurosurgery, I believe day #3. He feels his abdominal discomfort is a little better. He did not have any vomiting through the night. He had some flatus and some loose stool that did pass. We did repeat a KUB on him this morning that does show continued air-fluid levels and continued issues with the ileus. I have already taken the liberty to speak to Dr. Seymour about this this morning and he has agreed to be on board as a surgical consult should the patient develop any further problems; however, I do suspect this is likely a postoperative ileus and should resolve with time. He has not had any fevers, chills or rigors. No chest pain. No shortness of breath overnight and we do continue to have him nothing by mouth and on intravenous (IV) fluids for the time being. PHYSICAL EXAMINATION: Temperature is 99.2, pulse 71 and regular, respiratory rate 18, blood pressure 126/60, SPO2 is 95% on room air. General: The patient appears to be in no acute distress. He is alert, oriented , pleasant. HEENT: Unremarkable. Lungs: Clear. Heart: Regular rhythm. Normal S1, S2. Abdomen: Slightly distended. He does have some hypertympanic sounding bowel sounds, but no rebound is appreciated. Extremities: No edema. No calf tenderness. LABORATORY DATA: White count 7.6, hemoglobin 8.1, platelets 131,000. Sodium 143, potassium 4.0, chloride 111, bicarbonate 22, anion gap 10, BUN 30, creatinine 1.48 which is improved from yesterday, glucose is 96, calcium 7.9. ASSESSMENT AND PLAN: 1. Chronic low back pain status post lumbar decompression and fusion by neurosurgery. Pain appears to be adequately controlled. Will defer pain management, as well as physical therapy to neurosurgery. 2. Postoperative ileus which has not resolved as quickly as what I would like and his KUB does appear to be slightly worse from yesterday. Will continue with the NG tube with low intermittent suction, nothing by mouth. I did take the liberty to consult Dr. Seymour to have general surgery involved just in case he has further issues, but my guess is this should improve over the next 24 hours or so. 3. Anemia status post surgery. I see that neurosurgery has already placed for blood transfusion. I agree with this as being a good course of action. Will continue to monitor the hemoglobin and hematocrit. 4. Chronic kidney disease (CKD). He does appear to be improving with his creatinine. Will continue to follow this. He does have IV fluids on board. Will continue to monitor his renal function and monitor him for any signs of volume overload. For the time being since he is nothing by mouth we will leave him on the IV fluids and this can be discontinued once he is able to progress with diet. 5. History of multiple myeloma and B-cell lymphoma. Appreciate Dr. Diaz's input. 6. History of hyperparathyroidism, vitamin D deficiency. Currently I am holding on the calcium and vitamin D supplementation until he has been able to resume oral intake since calcium could cause issues with constipation, but he will definitely need to be sent home on important supplementation. 7. Depression, stable. 8. Hypertension. Will continue to follow. No changes. 9. Morbid obesity with body mass index (BMI) of 33.2 which can complicate his medical care. 10. 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 Should followup outpatient with urology. 11. Deep venous thrombosis (DVT) prophylaxis. Thromboembolism deterrent stockings (TEDS) and sequentials. DISPOSITION: I did see that neurosurgery would like to transfer the patient to the general medical floor and I do not see any issues with this at this time. The patient's electrolytes do appear to be doing well and he does not appear to have necessity of telemetry at this time. However, I would recommend obstructive sleep apnea (MARINO) protocol. MTDD
[2017-04-10 00:31] LABS: MEAN CORPUSCULAR HEMOGLOBIN 31.7 pg (27.0-33.0); MEAN CORPUSCULAR HGB CONC 34.6 g/dl (32.0-36.5); MEAN CORPUSCULAR VOLUME 91.7 fl (80.0-96.0); RED CELL DISTRIBUTION WIDTH 16.2 % (11.5-14.5)
[2017-04-10] MEDS: NS 1,000 ML IV SCH ×2 (01:01→10:33)
[2017-04-10] MEDS: ACETAMINOPHEN TAB 650MG DOSE (2X325MG) PO SCH ×6 (01:02→21:37)
[2017-04-10 06:00] VITALS: BP 141/70
[2017-04-10 06:40] LABS: MEAN CORPUSCULAR HEMOGLOBIN 31.7 pg (27.0-33.0); MEAN CORPUSCULAR HGB CONC 34.4 g/dl (32.0-36.5); MEAN CORPUSCULAR VOLUME 92.3 fl (80.0-96.0); RED CELL DISTRIBUTION WIDTH 16.1 % (11.5-14.5); WHITE BLOOD COUNT 5.8 K/mm3 (4.0-10.0)
[2017-04-10 06:45] LABS: INR 1.2
[2017-04-10 06:49] LABS: CALCIUM LEVEL 7.9 MG/DL (8.8-10.2); CREATININE FOR GFR 1.36 MG/DL (0.70-1.30); MAGNESIUM LEVEL 2.1 MG/DL (1.8-2.4); POTASSIUM SERUM 3.4 MEQ/L (3.5-5.1)
[2017-04-10] MEDS ORDERED: POTASSIUM CHLORIDE 10 MEQ SR TABLET PO ONE (08:15)
[2017-04-10] MEDS: PANTOPRAZOLE 40MG INJ (PROTONIX) (C9113) IV SCH (09:00)
--- NOTE | 2017-04-10 09:02 | IPN ---
DATE: 04/10/2017 72-year-old gentleman seen at bedside, resting comfortably. He still has the NG tube in place, but he says he is passing flatus and has had a bowel movement this morning. Denies any abdominal pain. No chest pain. No nausea or vomiting. OBJECTIVE: Temperature is 98.5, pulse 65, respiratory rate 18, blood pressure 141/70, SPO2 95% on room air. GENERAL: The patient appears to be in no acute distress. He is alert and oriented, pleasant. HEENT: Unremarkable. LUNGS: Clear. HEART: Regular rate and rhythm. ABDOMEN: Obese, slightly distended with positive bowel sounds. No masses. No rebound. NG tube is in place. There is no material this morning. EXTREMITIES: No edema. No calf tenderness. LABORATORIES: White count 5.8, hemoglobin 9.4, platelets 117,000. Sodium 143, potassium 3.4, chloride 112, bicarb 22, anion gap 9, BUN is 25, creatinine 1.36, continuing a downward trend, glucose 88, calcium 7.9. Again, iron studies do suggest some iron deficiency as well as anemia of chronic disease. ASSESSMENT/PLAN: 1. Chronic low back pain status post lumbar decompression and fusion by neurosurgery. Appreciate their input and will defer pain management and physical therapy as well as a back brace to neurosurgery. 2. Postop ileus. Continues with NG tube. Appreciate Dr. Seymour's input. 3. Anemia, which appears to be multifactorial. He does appear to have some findings of iron deficiency as well as anemia of chronic disease. He did receive blood transfusion 1 unit packed red blood cells yesterday, it did seem to help his hemoglobin and hematocrit . He is above 99. I would recommend not doing any further blood transfusion for the time being. His gastric contents were guaiac positive and he did have a positive stool for guaiac yesterday. Again, appreciate Dr. Seymour's input. 4. Chronic kidney disease with acute on chronic kidney injury. He does appear to be improving with IV fluids. We will want to continue to monitor for volume overload. My goal is that once he begins oral intake, will need to discontinue the IV fluids. 5. History of multiply myeloma and B-cell lymphoma. Appreciate Dr. Diaz's input and he should followup with his outpatient oncologist. 6. History of hyperparathyroidism with vitamin D deficiency. Again holding calcium D and vitamin D supplementation since this may constipate him, until after he is tolerating a diet. 7. Depression, stable. 8. Hypertension. Continues with no issues. 9. Morbid obesity, which complicates his medical care. 10. History of transitional cell carcinoma of the bladder status post partial cystectomy and nephrectomy. Followup outpatient urology. 11. Deep vein thrombosis (DVT) prophylaxis. Thromboembolic deterrent stockings (TEDS) and sequentials. DISPOSITION: Again, regarding his anemia, I would recommend starting him on iron supplement, however this could constipate him as well as the calcium supplementation. Will hold this until after his ileus has resolved. The patient continues with MARINO protocol and will continue to monitor his hemoglobin and hematocrit and electrolytes.
[2017-04-10] MEDS: LACTULOSE 20 GM/30 ML SYRUP UD PO SCH ×3 (10:30→21:36)
[2017-04-10] MEDS: METOCLOPRAMIDE 5 MG TAB PO SCH ×4 (10:31→21:36)
[2017-04-10 12:29] LABS: MEAN CORPUSCULAR HGB CONC 34.5 g/dl (32.0-36.5); MEAN CORPUSCULAR VOLUME 92.9 fl (80.0-96.0); WHITE BLOOD COUNT 6.2 K/mm3 (4.0-10.0)
[2017-04-10 12:30] LABS: RED CELL DISTRIBUTION WIDTH 16.3 % (11.5-14.5)
--- NOTE | 2017-04-10 13:39 | CR ---
DATE OF CONSULTATION: 04/08/2017 REASON FOR CONSULTATION: Postoperative ileus. HISTORY OF PRESENT ILLNESS: The patient is a 71-year-old male who came in for elective surgery on 04/05/[address] Luque. He had a laminectomy at L3-L4, L5-S1, and partial L2, bilateral complete cystectomy L3-L4, L4-5, and L5-S1 with partial facetectomy L2-L3, with posterior lateral decompression, as well as some bone graft spinal fusion L2 through S1. Postoperatively, he has been doing well. He has been passing gas. He even had a bowel movement. He had four bowel movements on 04/07/2017, and he has had two bowel movement so far today. Starting yesterday, he had increased abdominal distention, as well as some vomiting. His diet was reduced back to a liquid diet, and he continued have emesis, so he had a nasogastric (NG) tube placed, which he only had about 100 mL out at that this point. Abdominal x-ray yesterday and today both show air fluid levels suspicious for ileus versus small bowel obstruction that is not improving. Therefore, I was asked to evaluate. Currently, he denies any nausea or vomiting. No fevers or chills. No abdominal pain. He does feel more bloated than his baseline, but he also feels much improved from yesterday. Denies all abdominal pains. No blood in his stools. No pain or cramping with bowel movements. No prior history of abdominal complaints. After he had a nephrectomy done a couple of years ago, he did have a prolonged ileus for about 3 days after that surgery. PAST MEDICAL HISTORY: Pancytopenia, chronic kidney disease stage IV, history of urothelial carcinoma with status post right-sided nephrectomy, diffuse B-cell lymphoma, history of Clostridium (C) difficile and methicillin-resistant Staphylococcus aureus (MRSA), hypertension, anxiety, depression, gout, hypokalemia. PAST SURGICAL HISTORY: [id number] removal and replacement due to MRSA infection, orchiectomy, L4-5 decompression, left knee medial meniscus repair, adhesive tenosynovitis repair, tibial tendon of the left foot repair, right nephrectomy and removal of a portion of the bladder, cystoscopy, transurethral resection of bladder tumor, and most recently this large surgery with Dr. Luque on Wednesday, as stated in the history of present illness (HPI). ALLERGIES: None. HOME MEDICATIONS: - Tylenol - losartan - sertraline - Zanaflex SOCIAL HISTORY: Denies any current drug, alcohol, tobacco abuse. FAMILY HISTORY: Noncontributory. REVIEW OF SYSTEMS: Per positives and negatives as stated in the HPI. PHYSICAL EXAMINATION: General: The patient is alert and oriented times three. No acute distress. Vital signs: Temperature 99.2, pulse 71, respirations 18, blood pressure 126/60, pulse oximetry 95% on room air. HEENT: Pupils equally round and react to light accommodation. Heart: S1, S2, regular rate and rhythm. Lungs: Clear to auscultation bilaterally. Abdomen: Soft, distended, nontender. Bowel sounds are distant. Extremities: No clubbing, cyanosis, or edema. LABORATORIES: White count 7.5, hemoglobin 8.3, platelets 145. Potassium 4, magnesium 2.1. IMAGING: Abdominal x-ray both 04/07/2017 and 04/08/2017, both showed ileus versus bowel obstruction with dilated loops of bowel. No signs of air fluid levels. ASSESSMENT AND PLAN: The patient is a 71-year-old male with likely postoperative ileus, status post complex spinal surgery with neurosurgery. He is postoperative day #3 currently. He is passing gas, having bowel movements, but he still has a lot of air inside of his abdomen and with nausea. Currently, there is a bilious output in his NG tube with a little bit of blood tinge to it, and this is likely secondary to trauma from the NG tube. Recommend add a proton pump inhibitor (PPI) for that. Will also start him on Reglan around the clock. This is most likely related to postoperative ileus and less likely due to a bowel obstruction. There could be partial ischemia after surgery. However, if it is ischemic, it is very mild and unlikely transmural. There are no signs of lactic acidosis, fevers, leukocytosis, or pain out of proportion to the abdomen or bloody stools. If any of those occur, then he will benefit from a sigmoidoscopy. However, at this time, this is all likely related to postoperative ileus and will most likely resolve on its own within the next couple of days. Will monitor NG tube output. As it decreases, he can slowly be started back on a diet and advance slowly from there. Thank you for the consult. I will continue to follow the patient with you with further recommendations to follow.
[2017-04-10 18:40] LABS: MEAN CORPUSCULAR HEMOGLOBIN 31.1 pg (27.0-33.0); MEAN CORPUSCULAR HGB CONC 33.6 g/dl (32.0-36.5); MEAN CORPUSCULAR VOLUME 92.4 fl (80.0-96.0); RED CELL DISTRIBUTION WIDTH 16.2 % (11.5-14.5); WHITE BLOOD COUNT 7.2 K/mm3 (4.0-10.0)
[2017-04-10 22:00] VITALS: BP_SYST 142; BP_SYST 175; BP_DIAS 71; BP_DIAS 81
[2017-04-11 00:32] LABS: MEAN CORPUSCULAR HEMOGLOBIN 31.7 pg (27.0-33.0); MEAN CORPUSCULAR VOLUME 93.1 fl (80.0-96.0); RED CELL DISTRIBUTION WIDTH 16.3 % (11.5-14.5); WHITE BLOOD COUNT 6.3 K/mm3 (4.0-10.0)
[2017-04-11] MEDS: ACETAMINOPHEN TAB 650MG DOSE (2X325MG) PO SCH ×6 (01:46→20:38)
[2017-04-11 06:00] VITALS: BP 145/72
[2017-04-11 07:02] LABS: MEAN CORPUSCULAR HEMOGLOBIN 32.7 pg (27.0-33.0); MEAN CORPUSCULAR HGB CONC 35.3 g/dl (32.0-36.5); MEAN CORPUSCULAR VOLUME 92.6 fl (80.0-96.0); RED CELL DISTRIBUTION WIDTH 16.5 % (11.5-14.5); WHITE BLOOD COUNT 7.3 K/mm3 (4.0-10.0)
[2017-04-11 07:56] LABS: CALCIUM LEVEL 8.2 MG/DL (8.8-10.2); CREATININE FOR GFR 1.36 MG/DL (0.70-1.30)
[2017-04-11] MEDS: METOCLOPRAMIDE 5 MG TAB PO SCH ×4 (09:00→20:37)
--- NOTE | 2017-04-11 09:37 | IPN ---
DATE OF SERVICE: 04/11/2017 A 72-year-old male seen at bedside. Resting comfortably. He is on clear liquids. Nasogastric (NG) tube has been discontinued yesterday. Is passing flatus and had a bowel movement yesterday. Denies any complaints. OBJECTIVE: Temperature is 99.7, pulse 69, respiratory rate 18, blood pressure (BP) 142/71, SPO2 is 97% on room air. General: The patient appears to be in no acute distress. He is alert, pleasant. HEENT: Unremarkable. Lungs: Clear to auscultation. Heart: Regular rate and rhythm. Abdomen is obese, soft, nontender, nondistended, with positive bowel sounds. No masses. No rebound. Extremities: No edema. No calf tenderness. No sensory deficits. LABORATORY DATA: White count is 7.3, hemoglobin 9.4, platelets are 128,000. Sodium is 142, potassium 4.0, chloride 111, bicarbonate 22, anion gap 9, BUN is 19, creatinine 1.36, glucose is 96. ASSESSMENT AND PLAN: 1. Chronic low back pain, status post lumbar decompression and fusion with neurosurgery. Will defer further pain management, physical therapy, and back brace to neurosurgery. 2. Postoperative ileus. The NG tube has been discontinued. He is on clear liquids, which was advanced to full liquids yesterday, and appreciate the general surgeon's input. 3. Anemia, which appears to be multifactorial. He does have what appears to be anemia of chronic disease. He did receive blood transfusion a couple days ago. His hemoglobin and hematocrit remained stable in the mid-9 range. I did have a discussion with the general surgeon yesterday. He did have some guaiac positive findings on gastric contents and stool. However, if his hemoglobin and hematocrit remain stable, this may need outpatient workup in the near future with a colonoscopy. Unfortunately, he has never had one. 4. Chronic kidney disease (CKD) with mild acute kidney injury. He does appear to be at baseline. Intravenous (IV) fluids have been discontinued. 5. History of multiple myeloma and B-cell lymphoma. Appreciate Dr. Diaz's input previously. He will need followup outpatient with oncology; and again, this could be a reason for his chronic anemia. 6. History of hyperparathyroidism, vitamin D deficiency. Again, I held calcium with vitamin D. The supplementation will need to be started on discharge and once he is tolerating a diet and having regular bowel movements. 7. Depression, stable. 8. Hypertension. Continues with no issues. 9. Morbid obesity, which could complicate his medical care. 10. Prior history of transitional cell carcinoma of the bladder, status post partial cystectomy and nephrectomy. Outpatient followup with urology and oncology, as previously indicated. 11. Deep venous thrombosis (DVT) prophylaxis, thromboembolic deterrents (TEDs) and sequentials. DISPOSITION: The patient does appear to be progressing fairly well with physical therapy. He continues with obstructive sleep apnea (MARINO) protocol. Will continue to monitor his hemoglobin and hematocrit and electrolytes; and as outlined above, he will likely need outpatient followup with colonoscopy in the [id number] future.
--- NOTE | 2017-04-11 11:02 | IPNPDOC ---
Subjective General Date/Time Seen The patient was seen on 04/11/17 at 10:59. Subject Chief Complaint/History The patient is a 72-year-old male seen for postoperative ileus Patient reports he is passing flatus, having bowel movements. Tolerated full liquids yesterday. Denies abdominal discomfort. Current Medications Current Medications Current Medications Acetaminophen (Tylenol Suppository) 650 mg Q4H MO Last administered on 17:00; Start 04/06/17 at 08:00; Stop 04/08/17 at 09:05; Status DC Acetaminophen (Tylenol Suppository) 650 mg Q4H MO ; Start 04/06/17 at 09:00; Stop 04/06/17 at 09:23; Status DC Acetaminophen (Tylenol Suppository) 650 mg Q4H MO ; Start 04/06/17 at 09:00; Stop 05/06/17 at 08:59; Status Cancel Acetaminophen (Tylenol Suppository) 650 mg Q6HP PRN MO PAIN / FEVER; Start at 08:30; Stop 04/06/17 at 08:33; Status DC Acetaminophen (Tylenol Tab) 650 mg Q4H PO Last administered on 04/11/17 06:12 ; Start 04/08/17 at 09:00; Stop 05/08/17 at 08:59 Acetaminophen/ Hydrocodone Bitart ([place], Anexsia 5/325) 1 tab Q4HP PRN PO MODERATE PAIN (PS 5-7) Last administered on 04/06/17 02:06; Start 04/05/17 at 19:45; Stop 04/06/17 at 08:26; Status DC Calcium/Vitamin D (Oscal D) 500 mg BID PO Last administered on 04/07/17 11:40 ; Start 04/07/17 at 09:00; Stop 04/07/17 at 12:46; Status DC Cefuroxime Sodium 750 mg/Dextrose 50 ml @ 100 mls/hr Q8H IV Last administered on 04/06/17 12:36; Start 04/05/17 at 20:00; Stop 04/06/17 at 12:29; Status DC Docusate Sodium (Colace) 100 mg BID PO ; Start 04/05/17 at 21:00; Stop 04/06/17 at 08:33; Status DC Fentanyl Citrate (Sublimaze) 25 mcg Q5MP PRN IV MODERATE PAIN (PS 4-7) Last administered on 04/05/17 20:11; Start 04/05/17 at 19:30; Stop 04/05/17 at 20:30 ; Status DC Lactated Ringer's 1,000 ml @ 100 mls/hr Q10H IV ; Start 04/05/17 at 19:30; Stop 04/05/17 at 20:30; Status DC Lactobacillus Acidophilus (Bacid) 1 ea BID PO ; Start 04/05/17 at 21:00; Stop at 08:33; Status DC Lactulose (Cephulac) 30 ml TID PO Last administered on 04/10/17 21:36; Start 04/06/17 at 09:00; Stop 05/06/17 at 08:59 Losartan Potassium (Cozaar) 25 mg DAILY PO ; Start 04/06/17 at 09:00; Stop 04/06 at 09:00; Status DC Metoclopramide HCl (REGLAN INJection) 10 mg Q6HP PRN IV NAUSEA OR VOMITING; Start 04/05/17 at 19:30; Stop 04/05/17 at 20:30; Status DC Metoclopramide HCl (Reglan) 5 mg QID PO Last administered on 04/10/17 21:36; Start 04/08/17 at 13:00; Stop 05/08/17 at 12:59 Miscellaneous (Unresolved Clarification Entry) SEE LABEL COMMENTS UNRESOLVED XX ; Start 04/05/17 at 00:01; Stop 04/06/17 at 08:33; Status DC Morphine Sulfate (Morphine Sulfate Inj) 2 mg Q2HP PRN IV SEVERE PAIN (PS 8-10) Last administered on 04/06/17 23:31; Start 04/05/17 at 19:45; Stop 04/12/17 at 19:44 Ondansetron HCl (ZOFRAN INJection) 4 mg Q4HP PRN IV NAUSEA OR VOMITING; Start 04/05/17 at 19:30; Stop 04/05/17 at 20:30; Status DC Ondansetron HCl (ZOFRAN INJection) 4 mg Q4HP PRN IV NAUSEA Last administered on 04/08/17 09:48; Start 04/05/17 at 19:45; Stop 05/05/17 at 19:44 Oxycodone/ Acetaminophen (Percocet 5mg/ 325mg Tablet) 1 tab ASDIRECTED PRN PO MILD/MODERATE PAIN (PS 1-7); Start 04/05/17 at 19:30; Stop 04/05/17 at 20:30; Status DC Pantoprazole Sodium (Protonix) 40 mg Q24H IV Last administered on 04/10/17 09: 00; Start 04/08/17 at 09:00; Stop 05/08/17 at 08:59 Potassium Chloride/Sodium Chloride 1,000 ml @ 120 mls/hr Q8H20M IV Last administered on 04/06/17 08:08; Start 04/05/17 at 19:45; Stop 04/06/17 at 08:49 ; Status DC Promethazine HCl (PHENERGAN INJection) 12.5 mg Q6HP PRN IM NAUSEA Last administered on 04/07/17 20:36; Start 04/07/17 at 15:30; Stop 05/07/17 at 15:29 Sertraline HCl (Zoloft) 50 mg DAILY PO ; Start 04/06/17 at 09:00; Stop 04/06/17 at 09:00; Status DC Sodium Chloride 1,000 ml @ 60 mls/hr [id number] IV Last administered on 10:33; Start 04/08/17 at 18:15; Stop 04/10/17 at 18:47; Status DC Sodium Chloride 1,000 ml @ 120 mls/hr Q8H20M IV Last administered on 10:16; Start 04/06/17 at 09:00; Stop 04/07/17 at 15:30; Status DC Sodium Chloride 1,000 ml @ 150 mls/hr Q6H40M IV Last administered on 11:33; Start 04/07/17 at 16:00; Stop 04/08/17 at 18:05; Status DC Tizanidine HCl (Zanaflex) 2 mg DAILY PO ; Start 04/06/17 at 09:00; Stop at 09:00; Status DC Allergies Coded Allergies: No Known Drug Allergy (Verified Allergy, Unknown, 03/11/17) NO KNOWN per PATIENT Objective Physical Examination Examination GENERAL APPEARANCE:comfortable, sittin gup in chair. SKIN: Warm and moist. HEENT: Normocephalic, atraumatic. [place] palpebral conjunctiva, anicteric sclerae. Lips and mucosa appear moist. ABDOMEN: Abdomen round, soft, nondistended, nontender on palpation Vital Signs Vital Signs Date Time Temp Pulse Resp B/P (MAP) Pulse Ox O2 Delivery O2 Flow Rate FiO2 04/11/17 06:00 97.8 59 18 145/72 (96) 97 Room Air 04/10/17 20:00 2.0 I&Os I&O- Last 24 Hours up to 6 AM 04/11/17 06:00 Intake Total 2780 ml Output Total 500 ml Balance 2280 ml Laboratory Data Labs 24H Laboratory Tests 2 04/11/17 07:20: Anion Gap 9, Glomerular Filtration Rate 55.0, Blood Urea Nitrogen 19H, Creatinine 1.36H, Sodium Level 142, Potassium Level 4.0, Chloride Level 111H, Carbon Dioxide Level 22, Calcium Level 8.2L CBC/BMP Laboratory Tests 04/10/17 12:06 Red Blood Count 3.04 L, Mean Corpuscular Volume 92.9, Mean Corpuscular Hemoglobin 32.0, Mean Corpuscular Hemoglobin Concent 34.5, Red Cell Distribution Width 16.3 H 04/10/17 18:28 Red Blood Count 3.26 L, Mean Corpuscular Volume 92.4, Mean Corpuscular Hemoglobin 31.1, Mean Corpuscular Hemoglobin Concent 33.6, Red Cell Distribution Width 16.2 H 04/10/17 23:57 Red Blood Count 3.03 L, Mean Corpuscular Volume 93.1, Mean Corpuscular Hemoglobin 31.7, Mean Corpuscular Hemoglobin Concent 34.0, Red Cell Distribution Width 16.3 H 04/11/17 06:22 Red Blood Count 2.87 L, Mean Corpuscular Volume 92.6, Mean Corpuscular Hemoglobin 32.7, Mean Corpuscular Hemoglobin Concent 35.3, Red Cell Distribution Width 16.5 H 04/11/17 07:20 Calcium Level 8.2 L Microbiology Microbiology 04/05/17 Blood Culture - Final, Complete NO GROWTH AFTER 5 DAYS 04/05/17 Blood Culture - Final, Complete NO GROWTH AFTER 5 DAYS 04/09/17 Occult Blood - Final, Complete 04/09/17 Stool Occult Blood (DANIEL) - Final, Complete 04/05/17 Urine Culture - Final, Complete Impression Posop Ileus resolved OK to advance diet In terms of possible colonoscopy, suggest doing it as outpatient. Probably would not tolerate prep at this time. Spoke about it to the patient and patient at this time does not want one done. Plan / VTE VTE Prophylaxis Ordered?: Yes Plan / Urinary Catheter Reason for insertion/continuin: Critical Pt monitoring LAILA CAPONE MD Apr 11, 2017 11:02
[2017-04-11] MEDS: LACTULOSE 20 GM/30 ML SYRUP UD PO SCH ×4 (11:12→20:37)
[2017-04-11] MEDS: PANTOPRAZOLE 40MG INJ (PROTONIX) (C9113) IV SCH (11:13)
[2017-04-11 22:00] VITALS: BP 164/81
[2017-04-12] MEDS: ACETAMINOPHEN TAB 650MG DOSE (2X325MG) PO SCH ×6 (01:47→21:39)
[2017-04-12 06:00] VITALS: BP 153/74
--- NOTE | 2017-04-12 07:22 | IPN ---
DATE: 04/12/2017 Mr. Maza is seen while rounding for the hospitalist. I reviewed Dr. Ortiz's extensive note from yesterday. The patient's status is stable from yesterday. He did not have any lab work ordered for today, but his hemoglobin has been stable. He has had no active bleeding. His ileus seems to have resolved. He is having flatus and bowel movements. PHYSICAL EXAMINATION: 164/81. Vital signs stable. Lungs clear. Heart regular rhythm. Abdomen soft, nontender. Good bowel sounds. No peripheral edema. Normal strength in his legs. LABS: None ordered for today. IMPRESSION: All the issues outlined in Dr. Ortiz's extensive note from yesterday are stable. He is stable from a medical standpoint. Agree with need for outpatient endoscopy. Discharge determination will be made by his primary who is Dr. Luque.
[2017-04-12] MEDS: PANTOPRAZOLE 40MG INJ (PROTONIX) (C9113) IV SCH (08:35)
[2017-04-12] MEDS: LACTULOSE 20 GM/30 ML SYRUP UD PO SCH ×3 (08:35→21:38)
[2017-04-12] MEDS: METOCLOPRAMIDE 5 MG TAB PO SCH ×4 (08:35→21:38)
[2017-04-12 12:02] LABS: ALBUMIN 2.2 GM/DL (3.2-5.2); ALBUMIN/GLOBULIN RATIO 0.58 (1.00-1.93); BILIRUBIN,TOTAL 0.2 MG/DL (0.2-1.0); CALCIUM LEVEL 7.6 MG/DL (8.8-10.2); CREATININE FOR GFR 1.48 MG/DL (0.70-1.30); GLOMERULAR FILTRATION RATE 49.9 (>42); POTASSIUM SERUM 3.9 MEQ/L (3.5-5.1)
[2017-04-12 14:00] VITALS: BP 182/84
--- NOTE | 2017-04-12 18:08 | IPNPDOC ---
General Date: Apr 12, 2017 Postoperative Day #: 7 Pain Control Satisfactory, 3/10. Tylenol. Surgical Procedure Posterior decompression with laminectomy L3, L4, L5, S1, and partial L2 with bilateral facetectomy L3-L4, L4-5 and L5-S1 and partial facetectomy L2-L3 with bone graft placed from L2-S1. Removal of interspinous hardware at L5. Repair of 3 dural tears. Bone marrow aspiration from L5 sent for biopsy. Subjective New Symptoms Mr Maza is a pleasant 71 year old gentleman with a history of whole body radiation, multiple myeloma, hypertension, CK D3 and absent kidney who has been admitted to the hospital for a planned complex spine surgery of L2-S1 decompression and fusion for compression fractures at L3 and L5 by Dr. Luque. He states his pain has been tolerable, rating at 3/10. He has been getting up out of bed and walking around his room with assistance and using a walker about 4-5 times per day. He is not walking the hallways just yet. His NG tube was removed over the weekend. He states he has been tolerating fluids well. He had a BM. He offers no other concerns for today. Objective Clinical Status: BP elevated, temp 99.0. Neurological status: Alert and orientated times three, GCS=[id number]=42. Speech is Fluent. NANI Drain= Removed. Wound/incision: Incision appears to be healing well. No erythema, or increased pain at the site. Perineo dressing is intact over the vertical midline incision. Drainage over the bandage over the drain sites. Motor: R=L=UE=LE. Moving all four limbs. No pronator drift. No new findings on exam today. Laboratory Results Vital Signs Date Time Temp Pulse Resp B/P (MAP) Pulse Ox O2 Delivery O2 Flow Rate FiO2 04/12/17 14:00 99.1 76 20 182/84 (116) 97 Room Air 04/11/17 15:12 2.0 I&O- Last 24 Hours up to 6 AM 04/12/17 06:00 Intake Total 1500 ml Output Total 1000 ml Balance 500 ml Laboratory Tests 04/12/17 11:24 Calcium Level 7.6 L, Aspartate Amino Transf (AST/SGOT) 20, Alanine Aminotransferase (ALT/SGPT) 17, Alkaline Phosphatase 74, Total Bilirubin 0.2, Total Protein 6.0 L, Albumin 2.2 L Laboratory Tests 2 04/12/17 11:24: Anion Gap 12, Glomerular Filtration Rate 49.9, Blood Urea Nitrogen 20H, Creatinine 1.48H, Sodium Level 142, Potassium Level 3.9, Chloride Level 109H, Carbon Dioxide Level 21, Calcium Level 7.6L, Aspartate Amino Transf (AST/SGOT) 20, Alanine Aminotransferase (ALT/SGPT) 17, Alkaline Phosphatase 74, Total Bilirubin 0.2, Total Protein 6.0L, Albumin 2.2L, Albumin/Globulin Ratio 0.58L Microbiology 04/05/17 Blood Culture - Final, Complete NO GROWTH AFTER 5 DAYS 04/05/17 Blood Culture - Final, Complete NO GROWTH AFTER 5 DAYS 04/09/17 Occult Blood - Final, Complete 04/09/17 Stool Occult Blood (DANIEL) - Final, Complete 04/05/17 Urine Culture - Final, Complete Assessment/Plan PLAN: 1. Lumbar spinal stenosis and wedge fracture of L3 and L5. S/p posterior decompression with laminectomy L3, L4, L5, S1, and partial L2 with bilateral facetectomy L3-L4, L4-5 and L5-S1 and partial facetectomy L2-L3 with bone graft placed from L2-S1. Removal of interspinous hardware at L5. Improving. Consult PT for assessment for potential discharge. Additional plans per Dr. Luque. 2. Bowel distension: Improved. NG tube removed over weekend. Management per hospitalist. 2. Anemia: Management per hospitalist. 4. Osteopenia: Management per hospitalist. 5. Wound care: appear to be healing well, still with moderate amount of drainage. They are draining what appears to be serous drainage. Will need to continue changing dressings PRN. 6. Pain control: Satisfactory. 7. DVT prophylaxis: TEDs and SCD. 8. Constipation prophylaxis: Cont lactulose 30 mL TID. 9. Activity: with supervision. Thank you for all consulting providers for your much needed help regarding care of Mr. Maza. Current Medications Current Medications Acetaminophen (Tylenol Suppository) 650 mg Q4H ND Last administered on t 17:00; Start 04/06/17 at 08:00; Stop 04/08/17 at 09:05; Status DC Acetaminophen (Tylenol Suppository) 650 mg Q4H ND ; Start 04/06/17 at 09:00; Stop 04/06/17 at 09:23; Status DC Acetaminophen (Tylenol Suppository) 650 mg Q4H ND ; Start 04/06/17 at 09:00; Stop 05/06/17 at 08:59; Status Cancel Acetaminophen (Tylenol Suppository) 650 mg Q6HP PRN [place] PAIN / FEVER; Start at 08:30; Stop 04/06/17 at 08:33; Status DC Acetaminophen (Tylenol Tab) 650 mg Q4H PO Last administered on 04/12/17 16:40 ; Start 04/08/17 at 09:00; Stop 05/08/17 at 08:59 Acetaminophen/ Hydrocodone Bitart ([place], Anexsia 5/325) 1 tab Q4HP PRN PO MODERATE PAIN (PS 5-7) Last administered on 04/06/17 02:06; Start 04/05/17 at 19:45; Stop 04/06/17 at 08:26; Status DC Calcium/Vitamin D (Oscal D) 500 mg BID PO Last administered on 04/07/17 11:40 ; Start 04/07/17 at 09:00; Stop 04/07/17 at 12:46; Status DC Cefuroxime Sodium 750 mg/Dextrose 50 ml @ 100 mls/hr Q8H IV Last administered on 04/06/17 12:36; Start 04/05/17 at 20:00; Stop 04/06/17 at 12:29; Status DC Docusate Sodium (Colace) 100 mg BID PO ; Start 04/05/17 at 21:00; Stop 04/06/17 at 08:33; Status DC Fentanyl Citrate (Sublimaze) 25 mcg Q5MP PRN IV MODERATE PAIN (PS 4-7) Last administered on 04/05/17 20:11; Start 04/05/17 at 19:30; Stop 04/05/17 at 20:30 ; Status DC Lactated Ringer's 1,000 ml @ 100 mls/hr Q10H IV ; Start 04/05/17 at 19:30; Stop 04/05/17 at 20:30; Status DC Lactobacillus Acidophilus (Bacid) 1 ea BID PO ; Start 04/05/17 at 21:00; Stop at 08:33; Status DC Lactulose (Cephulac) 30 ml TID PO Last administered on 04/12/17 16:39; Start 04/06/17 at 09:00; Stop 05/06/17 at 08:59 Losartan Potassium (Cozaar) 25 mg DAILY PO ; Start 04/06/17 at 09:00; Stop 04/06 at 09:00; Status DC Metoclopramide HCl (REGLAN INJection) 10 mg Q6HP PRN IV NAUSEA OR VOMITING; Start 04/05/17 at 19:30; Stop 04/05/17 at 20:30; Status DC Metoclopramide HCl (Reglan) 5 mg QID PO Last administered on 04/12/17 16:40; Start 04/08/17 at 13:00; Stop 05/08/17 at 12:59 Miscellaneous (Unresolved Clarification Entry) SEE LABEL COMMENTS UNRESOLVED XX ; Start 04/05/17 at 00:01; Stop 04/06/17 at 08:33; Status DC Morphine Sulfate (Morphine Sulfate Inj) 2 mg Q2HP PRN IV SEVERE PAIN (PS 8-10) Last administered on 04/06/17 23:31; Start 04/05/17 at 19:45; Stop 04/19/17 at 19:44 Ondansetron HCl (ZOFRAN INJection) 4 mg Q4HP PRN IV NAUSEA OR VOMITING; Start 04/05/17 at 19:30; Stop 04/05/17 at 20:30; Status DC Ondansetron HCl (ZOFRAN INJection) 4 mg Q4HP PRN IV NAUSEA Last administered on 04/08/17 09:48; Start 04/05/17 at 19:45; Stop 05/05/17 at 19:44 Oxycodone/ Acetaminophen (Percocet 5mg/ 325mg Tablet) 1 tab ASDIRECTED PRN PO MILD/MODERATE PAIN (PS 1-7); Start 04/05/17 at 19:30; Stop 04/05/17 at 20:30; Status DC Pantoprazole Sodium (Protonix) 40 mg Q24H IV Last administered on 04/12/17 08: 35; Start 04/08/17 at 09:00; Stop 05/08/17 at 08:59 Potassium Chloride/Sodium Chloride 1,000 ml @ 120 mls/hr Q8H20M IV Last administered on 04/06/17 08:08; Start 04/05/17 at 19:45; Stop 04/06/17 at 08:49 ; Status DC Promethazine HCl (PHENERGAN INJection) 12.5 mg Q6HP PRN IM NAUSEA Last administered on 04/07/17 20:36; Start 04/07/17 at 15:30; Stop 05/07/17 at 15:29 Sertraline HCl (Zoloft) 50 mg DAILY PO ; Start 04/06/17 at 09:00; Stop 04/06/17 at 09:00; Status DC Sodium Chloride 1,000 ml @ 60 mls/hr [id number] IV Last administered on 10:33; Start 04/08/17 at 18:15; Stop 04/10/17 at 18:47; Status DC Sodium Chloride 1,000 ml @ 120 mls/hr Q8H20M IV Last administered on 10:16; Start 04/06/17 at 09:00; Stop 04/07/17 at 15:30; Status DC Sodium Chloride 1,000 ml @ 150 mls/hr Q6H40M IV Last administered on 11:33; Start 04/07/17 at 16:00; Stop 04/08/17 at 18:05; Status DC Tizanidine HCl (Zanaflex) 2 mg DAILY PO ; Start 04/06/17 at 09:00; Stop at 09:00; Status DC Allergies Allergies: Coded Allergies: No Known Drug Allergy (Verified Allergy, Unknown, 03/11/17) NO KNOWN per PATIENT LESLYE GOVEA PA-C Apr 12, 2017 18:01
[2017-04-12 20:00] VITALS: BP 167/85
[2017-04-13] MEDS: ACETAMINOPHEN TAB 650MG DOSE (2X325MG) PO SCH ×4 (01:49→12:52)
[2017-04-13 06:00] VITALS: BP 128/54
[2017-04-13] MEDS: METOCLOPRAMIDE 5 MG TAB PO SCH ×2 (08:02→12:52)
[2017-04-13] MEDS: PANTOPRAZOLE 40MG INJ (PROTONIX) (C9113) IV SCH (08:02)
[2017-04-13] MEDS: LACTULOSE 20 GM/30 ML SYRUP UD PO SCH (08:02)
[2017-04-13] MEDS ORDERED: SERTRALINE HCL 50 MG TAB PO SCH (09:00)
[2017-04-13] MEDS ORDERED: LACT10SO3 PO (12:24)
[2017-04-13] MEDS ORDERED: ONDA4TAB6 PO (12:24)
[2017-04-13] MEDS ORDERED: PANT40TA2 PO (12:24)
--- NOTE | 2017-04-13 12:46 | IPNPDOC ---
Neurosurgery Date: Apr 13, 2017 Progress Note Date: Apr 13, 2017 Postoperative Day #: 8 Pain Control Satisfactory with Tylenol. Surgical Procedure Posterior decompression with laminectomy L3, L4, L5, S1, and partial L2 with bilateral facetectomy L3-L4, L4-5 and L5-S1 and partial facetectomy L2-L3 with bone graft placed from L2-S1. Removal of interspinous hardware at L5. Repair of 3 dural tears. Bone marrow aspiration from L5 sent for biopsy. Subjective New Symptoms Mr Maza is a pleasant 71 year old gentleman with a history of whole body radiation, multiple myeloma, hypertension, CK D3 and absent kidney who has been admitted to the hospital for a planned complex spine surgery of L2-S1 decompression and fusion for compression fractures at L3 and L5 by Dr. Luque. He states his pain has been tolerable. He has been getting up out of bed and walking around his room with assistance and using a walker. He states he would like a bedside commode and shower chair at home. He offers no other concerns for today. Objective Clinical Status: Neurological status: Alert and orientated times three, GCS=[id number]=03. Speech is Fluent. NANI Drain= Removed. Wound/incision: Incision appears to be healing well. Perineo dressing has been removed by Dr. Luque. No erythema, or increased pain at the site. Drainage over the bandage over the drain sites. Motor: R=L=UE=LE. Moving all four limbs. No pronator drift. When having him stand up to assess his incisions he appears to have some difficulty then grabs his walker. No new findings on exam today. Assessment/Plan PLAN PER Dr. LUQUE 1. Lumbar spinal stenosis and wedge fracture of L3 and L5. S/p posterior decompression with laminectomy L3, L4, L5, S1, and partial L2 with bilateral facetectomy L3-L4, L4-5 and L5-S1 and partial facetectomy L2-L3 with bone graft placed from L2-S1. Removal of interspinous hardware at L5. Improving. PT has recommended 1 more day therapy prior to potential discharge. OT to arrange for bedside commode and shower chair at home. Additional plans per Dr. Luque. 2. Bowel distension: Improved. NG tube removed over weekend. Management per hospitalist. 2. Anemia: Management per hospitalist. 4. Osteopenia: Management per hospitalist. 5. Wound care: appear to be healing well, still with moderate amount of drainage. They are draining what appears to be serous drainage. Will need to continue changing dressings PRN. 6. Pain control: Satisfactory. 7. DVT prophylaxis: TEDs and SCD. 8. Constipation prophylaxis: Cont lactulose 30 mL TID. 9. Activity: with supervision. Thank you for all consulting providers for your much needed help regarding care of Mr. Maza. Current Medications Current Medications Acetaminophen (Tylenol Suppository) 650 mg Q4H SD Last administered on 17:00; Start 04/06/17 at 08:00; Stop 04/08/17 at 09:05; Status DC Acetaminophen (Tylenol Suppository) 650 mg Q4H SD ; Start 04/06/17 at 09:00; Stop 04/06/17 at 09:23; Status DC Acetaminophen (Tylenol Suppository) 650 mg Q4H SD ; Start 04/06/17 at 09:00; Stop 05/06/17 at 08:59; Status Cancel Acetaminophen (Tylenol Suppository) 650 mg Q6HP PRN SD PAIN / FEVER; Start at 08:30; Stop 04/06/17 at 08:33; Status DC Acetaminophen (Tylenol Tab) 650 mg Q4H PO Last administered on 04/13/17 09:13 ; Start 04/08/17 at 09:00; Stop 05/08/17 at 08:59 Acetaminophen/ Hydrocodone Bitart ([place], Anexsia 5/325) 1 tab Q4HP PRN PO MODERATE PAIN (PS 5-7) Last administered on 04/06/17 02:06; Start 04/05/17 at 19:45; Stop 04/06/17 at 08:26; Status DC Calcium/Vitamin D (Oscal D) 500 mg BID PO Last administered on 04/07/17 11:40 ; Start 04/07/17 at 09:00; Stop 04/07/17 at 12:46; Status DC Cefuroxime Sodium 750 mg/Dextrose 50 ml @ 100 mls/hr Q8H IV Last administered on 04/06/17 12:36; Start 04/05/17 at 20:00; Stop 04/06/17 at 12:29; Status DC Docusate Sodium (Colace) 100 mg BID PO ; Start 04/05/17 at 21:00; Stop 04/06/17 at 08:33; Status DC Fentanyl Citrate (Sublimaze) 25 mcg Q5MP PRN IV MODERATE PAIN (PS 4-7) Last administered on 04/05/17 20:11; Start 04/05/17 at 19:30; Stop 04/05/17 at 20:30 ; Status DC Lactated Ringer's 1,000 ml @ 100 mls/hr Q10H IV ; Start 04/05/17 at 19:30; Stop 04/05/17 at 20:30; Status DC Lactobacillus Acidophilus (Bacid) 1 ea BID PO ; Start 04/05/17 at 21:00; Stop at 08:33; Status DC Lactulose (Cephulac) 30 ml TID PO Last administered on 04/12/17 21:38; Start 04/06/17 at 09:00; Stop 05/06/17 at 08:59 Losartan Potassium (Cozaar) 25 mg DAILY PO ; Start 04/06/17 at 09:00; Stop 04/06 at 09:00; Status DC Metoclopramide HCl (REGLAN INJection) 10 mg Q6HP PRN IV NAUSEA OR VOMITING; Start 04/05/17 at 19:30; Stop 04/05/17 at 20:30; Status DC Metoclopramide HCl (Reglan) 5 mg QID PO Last administered on 04/13/17 08:02; Start 04/08/17 at 13:00; Stop 05/08/17 at 12:59 Miscellaneous (Unresolved Clarification Entry) SEE LABEL COMMENTS UNRESOLVED XX ; Start 04/05/17 at 00:01; Stop 04/06/17 at 08:33; Status DC Morphine Sulfate (Morphine Sulfate Inj) 2 mg Q2HP PRN IV SEVERE PAIN (PS 8-10) Last administered on 04/06/17 23:31; Start 04/05/17 at 19:45; Stop 04/19/17 at 19:44 Ondansetron HCl (ZOFRAN INJection) 4 mg Q4HP PRN IV NAUSEA OR VOMITING; Start 04/05/17 at 19:30; Stop 04/05/17 at 20:30; Status DC Ondansetron HCl (ZOFRAN INJection) 4 mg Q4HP PRN IV NAUSEA Last administered on 04/08/17 09:48; Start 04/05/17 at 19:45; Stop 05/05/17 at 19:44 Oxycodone/ Acetaminophen (Percocet 5mg/ 325mg Tablet) 1 tab ASDIRECTED PRN PO MILD/MODERATE PAIN (PS 1-7); Start 04/05/17 at 19:30; Stop 04/05/17 at 20:30; Status DC Pantoprazole Sodium (Protonix) 40 mg Q24H IV Last administered on 04/13/17 08: 02; Start 04/08/17 at 09:00; Stop 05/08/17 at 08:59 Potassium Chloride/Sodium Chloride 1,000 ml @ 120 mls/hr Q8H20M IV Last administered on 04/06/17 08:08; Start 04/05/17 at 19:45; Stop 04/06/17 at 08:49 ; Status DC Promethazine HCl (PHENERGAN INJection) 12.5 mg Q6HP PRN IM NAUSEA Last administered on 04/07/17 20:36; Start 04/07/17 at 15:30; Stop 05/07/17 at 15:29 Sertraline HCl (Zoloft) 50 mg DAILY PO ; Start 04/06/17 at 09:00; Stop 04/06/17 at 09:00; Status DC Sertraline HCl (Zoloft) 50 mg DAILY PO Last administered on 04/13/17 10:54; Start 04/13/17 at 09:00; Stop 05/13/17 at 08:59 Sodium Chloride 1,000 ml @ 60 mls/hr [id number] IV Last administered on 10:33; Start 04/08/17 at 18:15; Stop 04/10/17 at 18:47; Status DC Sodium Chloride 1,000 ml @ 120 mls/hr Q8H20M IV Last administered on 10:16; Start 04/06/17 at 09:00; Stop 04/07/17 at 15:30; Status DC Sodium Chloride 1,000 ml @ 150 mls/hr Q6H40M IV Last administered on 11:33; Start 8/16/17 at 16:00; Stop 04/08/17 at 18:05; Status DC Tizanidine HCl (Zanaflex) 2 mg DAILY PO ; Start 04/06/17 at 09:00; Stop at 09:00; Status DC Allergies: Coded Allergies: No Known Drug Allergy (Verified Allergy, Unknown, 03/11/17) NO KNOWN per PATIENT LESLYE GOVEA PA-C Apr 13, 2017 12:43
[2017-04-14 00:06] LABS: FACTOR VII ACTIVITY 105 % (51-186); FACTOR XIII ACTIVITY 104 % (.)
--- NOTE | 2017-04-23 09:02 | DS.PDOC ---
General Date of Admission: Apr 05, 2017 Date of Discharge: Apr 13, 2017 Attending Physician: TEVIN LUQUE MD Discharge Summary Discharge summary dictated by NICOLASA Harrell, on behalf of Dr. Luque. Keturah Forrest was not present at the time of discharge. PROCEDURES PERFORMED DURING STAY: on 04/05/17. 1. Laminectomy L3, L4, L5, S1, and partial L2. 2. Bilateral complete facetectomy L3-L4, L4-5 and L5-S1 and partial facetectomy L2-L3 for posterolateral decompression on right and left side 3. Non-instrumented posterior-lateral onlay bone graft spinal fusion L2 through S1, use of allograft/autograft bone. 4. Removal interspinous processes hardware from previous surgery 5. Repair of CSF leak 6. lntraoperative use of C-arm fluoroscopy. 7. L5 vertebrae biopsy. CHIEF COMPLAINT: chronic low back pain and wedge fracture of L3 and L5. ADMISSION DIAGNOSES: 1. Lumbar spinal stenosis and wedge fracture of L3 and L5. DISCHARGE DIAGNOSES: 1. Chronic low back pain s/p lumbar decompression and fusion from L2-S1. 2. Acute on chronic anemia. 3. Hypertension 4. Vitamin D deficiency 5. Morbid obesity. HISTORY OF PRESENT ILLNESS: Mr Maza is a pleasant 71 year old gentleman with a history of whole body radiation, multiple myeloma, hypertension, CK D3 and absent kidney who has been admitted to the hospital for a planned complex spine surgery of L2-S1 decompression and fusion for compression fractures at L3 and L5 by Dr. Luque. We discussed all possible risks of surgery, as well as the risks of surgery providing no relief to his complaints. Patient understands the potential risks and wishes to proceed with the surgery for a possibility of improvement in symptoms. HOSPITAL COURSE: Patient was admitted to the fifth floor following surgery. He had developed a distended abdomen which was suspected to be possible early ileus and an NG tube was placed for bowel rest. He had some episodes of nausea and vomiting. He denied any other postop symptoms. He was given units for blood transfusion for his anemia. No new focal motor deficits have been noted on exam. DISCHARGE MEDICATIONS: Please see below. ALLERGIES: Please see below. LABORATORY DATA: Please see below. IMAGING: See EMR DISCHARGE PLAN AND INSTRUCTIONS: The discharge instructions have been discussed with the patient per Dr. Luque. He has been discharged to rehab. DISCHARGE CONDITION: Stable. TIME SPENT ON DISCHARGE: Greater than 30 minutes. Discharge Medications Scheduled Amlodipine Besylate (Amlodipine Besylate) 5 Mg Tab, 5 MG PO DAILY Hold for SBP<110 Enoxaparin (Lovenox) 60 Mg/0.6 Ml Syr, 50 MG SC Q12H Review with Dr. Sylvester Mina the need to continue this medicine. Metoclopramide HCl (Metoclopramide HCl) 5 Mg Tab, 5 MG PO Q6H Pantoprazole Sodium (Pantoprazole Sodium) 40 Mg Tab, 40 MG PO DAILY Sertraline Hcl (Sertraline HCl) 50 Mg Tab, 50 MG PO DAILY Scheduled PRN Acetaminophen (Tylenol) 325 Mg Tab, 650 MG PO Q4H PRN for PAIN / FEVER, ( Reported) Allergies Coded Allergies: No Known Drug Allergy (Verified Allergy, Unknown, 03/11/17) NO KNOWN per PATIENT KETURAH FORREST PA-C Apr 23, 2017 07:38
== END 2017-04-13 14:12 | DRG 457 ==
LOC: EDSTATUS 07:30 → M OR 04-05 07:02 → M ICU 04-05 20:32 → M MS5PR 04-08 12:10
PROVIDERS: ADMIT Neurological Surgery; ATTEND Neurological Surgery
PROC: 00Q20ZZ Repair Dura Mater, Open Approach (ICD-10-PCS; 2017-04-05)
PROC: 0SB20ZZ Excision of Lumbar Vertebral Disc, Open Approach (ICD-10-PCS; 2017-04-05)
PROC: 00PU0JZ Removal of Synthetic Substitute from Spinal Canal, Open Approach (ICD-10-PCS; 2017-04-05)
PROC: 30253N1 (ICD-10-PCS; 2017-04-05)
PROC: 07DS0ZX Extraction of Vertebral Bone Marrow, Open Approach, Diagnostic (ICD-10-PCS; 2017-04-05)
PROC: 00NY0ZZ Release Lumbar Spinal Cord, Open Approach (ICD-10-PCS; 2017-04-05)
PROC: 0SG1071 Fusion of 2 or more Lumbar Vertebral Joints with Autologous Tissue Substitute, Posterior Approach, Posterior Column, Open Approach (ICD-10-PCS; principal; 2017-04-05 08:30)
PROC: 30253R1 (ICD-10-PCS; 2017-04-06)
DX: M51.16 Intervertebral disc disorders with radiculopathy, lumbar region (principal); M43.8X9 Other specified deforming dorsopathies, site unspecified; G97.41 Accidental puncture or laceration of dura during a procedure; G96.0 Cerebrospinal fluid leak; N25.81 Secondary hyperparathyroidism of renal origin; C90.30 Solitary plasmacytoma not having achieved remission; E87.2 Acidosis; D62 Acute posthemorrhagic anemia; E87.1 Hypo-osmolality and hyponatremia; S32.000A Wedge compression fracture of unspecified lumbar vertebra, initial encounter for closed fracture; K56.7 Ileus, unspecified; N18.3 Chronic kidney disease, stage 3 (moderate); M48.06 Spinal stenosis, lumbar region; Y75.3 Surgical instruments, materials and neurological devices (including sutures) associated with adverse incidents; I12.9 Hypertensive chronic kidney disease with stage 1 through stage 4 chronic kidney disease, or unspecified chronic kidney disease; R26.81 Unsteadiness on feet; M15.0 Primary generalized (osteo)arthritis; E55.9 Vitamin D deficiency, unspecified; F41.9 Anxiety disorder, unspecified; D53.8 Other specified nutritional anemias; D47.2 Monoclonal gammopathy; E87.6 Hypokalemia; M79.1 Myalgia; M85.80 Other specified disorders of bone density and structure, unspecified site; K59.00 Constipation, unspecified; X58.XXXA Exposure to other specified factors, initial encounter; Y92.9 Unspecified place or not applicable; D63.1 Anemia in chronic kidney disease; F32.9 Major depressive disorder, single episode, unspecified; E78.2 Mixed hyperlipidemia; E66.01 Morbid (severe) obesity due to excess calories; Z68.32 Body mass index [BMI] 32.0-32.9, adult; Z90.5 Acquired absence of kidney; Z85.50 Personal history of malignant neoplasm of unspecified urinary tract organ; Z86.14 Personal history of Methicillin resistant Staphylococcus aureus infection; Z92.3 Personal history of irradiation; Z79.899 Other long term (current) drug therapy; Z87.891 Personal history of nicotine dependence; Z98.1 Arthrodesis status

== ENCOUNTER → 2017-03-26 | Outpatient (CLI) | payer MEDICARE, OTHER ==
[~2017-03-26] MED LIST changes: +LACT10SO3 PO; +LOVE0.4I2 SC; +METO5TAB2 PO; +ONDA4TAB6 PO; +OPTI4PAD XX; +PANT40TA2 PO
[2017-03-26 13:55] LABS: BASO % 0.3 % (0.0-1.0); EOS # 0.1 K/mm3 (0.0-0.50); EOS % 1.4 % (0.0-3.0); LARGE UNSTAINED CELL # 0.2 K/mm3 (0.0-0.4); LARGE UNSTAINED CELL % 3.1 % (0.0-4.0); LYMPH # 1.1 K/mm3 (1.5-4.5); MEAN CORPUSCULAR HEMOGLOBIN 31.7 pg (27.0-33.0); MEAN CORPUSCULAR HGB CONC 33.4 g/dl (32.0-36.5); MEAN CORPUSCULAR VOLUME 94.9 fl (80.0-96.0); MONO # 0.6 K/mm3 (0.0-0.8); MONO % 12.2 % (0.0-5.0); NEUTROPHILS # 3.3 K/mm3 (1.8-7.7); PLATELET COUNT, AUTOMATED 155 k/mm3 (150-450); RED CELL DISTRIBUTION WIDTH 16.7 % (11.5-14.5)
[2017-03-26 14:17] LABS: ALBUMIN 3.5 GM/DL (3.2-5.2); ALBUMIN/GLOBULIN RATIO 0.66 (1.00-1.93); BILIRUBIN,TOTAL 0.3 MG/DL (0.2-1.0); CALCIUM LEVEL 9.3 MG/DL (8.8-10.2); CREATININE FOR GFR 2.02 MG/DL (0.70-1.30); GLOMERULAR FILTRATION RATE 34.9 (>42); POTASSIUM SERUM 4.8 MEQ/L (3.5-5.1); TOTAL PROTEIN 8.8 GM/DL (6.4-8.2)
[2017-03-26 14:58] LABS: INR 1.04
== END ==
LOC: M LAB 12:30
PROVIDERS: ATTEND Neurological Surgery
DX: Z01.818 Encounter for other preprocedural examination (principal); Z79.01 Long term (current) use of anticoagulants

== ENCOUNTER 2017-04-13 13:46 | Inpatient (IN) | payer MEDICARE, OTHER ==
[~2017-04-13] VITALS: Ht 182.9 cm; Wt 112.7 kg
[~2017-04-13 13:46] MED LIST changes: -LOVE0.4I2 SC; -METO5TAB2 PO; +METOCLOPRAMIDE 5 MG TAB PO SCH; -OPTI4PAD XX
[2017-04-13 14:00] VITALS: BP 164/79
[2017-04-13] MEDS: LACTULOSE 20 GM/30 ML SYRUP UD PO SCH ×2 (14:00→22:00)
[2017-04-13] MEDS ORDERED: MORPHINE 30 MG TAB **MSIR PO PRN ×2 (14:15)
[2017-04-13] MEDS ORDERED: oxyCODONE 5MG TAB PO PRN (14:30)
--- NOTE | 2017-04-13 15:49 | PMRNOTEPD ---
PMR Note 72-year-old left-handed white male with multiple myeloma who developed multiple lumbar compression fractures and cauda equina compression status post L22 S1 laminectomy and decompression with onlay bone graft. Patient needs to learn adaptive mobility specially how to use the TLSO effectively and requires neuromuscular facilitation of bilateral lower extremities. Patient is admitted for trial of neuro rehabilitation of nontraumatic spinal cord injury paraparesis. H&P #[id number]. IFEANYI RIOS MD Apr 13, 2017 15:49
[2017-04-13] MEDS: METOCLOPRAMIDE 5 MG TAB PO SCH ×2 (17:40→23:20)
[2017-04-13] MEDS: ACETAMINOPHEN TAB 650MG DOSE (2X325MG) PO PRN ×2 (17:40→23:20)
[2017-04-13 19:40] VITALS: BP 156/68
[2017-04-14] MEDS: METOCLOPRAMIDE 5 MG TAB PO SCH ×4 (05:26→23:45)
[2017-04-14] MEDS: ACETAMINOPHEN TAB 650MG DOSE (2X325MG) PO PRN ×3 (05:27→23:49)
[2017-04-14] MEDS: LACTULOSE 20 GM/30 ML SYRUP UD PO SCH (05:35)
[2017-04-14 06:00] VITALS: BP 167/74
[2017-04-14 06:37] LABS: BASO % 0.2 % (0.0-1.0); EOS # 0.1 K/mm3 (0.0-0.50); EOS % 1.8 % (0.0-3.0); LARGE UNSTAINED CELL # 0.1 K/mm3 (0.0-0.4); LARGE UNSTAINED CELL % 1.5 % (0.0-4.0); LYMPH # 0.5 K/mm3 (1.5-4.5); LYMPH % 8.5 % (24.0-44.0); MEAN CORPUSCULAR HEMOGLOBIN 30.1 pg (27.0-33.0); MEAN CORPUSCULAR HGB CONC 31.7 g/dl (32.0-36.5); MONO # 0.3 K/mm3 (0.0-0.8); MONO % 5.3 % (0.0-5.0); NEUTROPHILS # 3.9 K/mm3 (1.8-7.7); NEUTROPHILS % 82.6 % (36.0-66.0); PLATELET COUNT, AUTOMATED 128 k/mm3 (150-450); RED CELL DISTRIBUTION WIDTH 16.2 % (11.5-14.5); WHITE BLOOD COUNT 4.7 K/mm3 (4.0-10.0)
[2017-04-14 06:52] LABS: ALBUMIN 2.1 GM/DL (3.2-5.2); ALBUMIN/GLOBULIN RATIO 0.46 (1.00-1.93); BILIRUBIN,TOTAL 0.3 MG/DL (0.2-1.0); CALCIUM LEVEL 7.9 MG/DL (8.8-10.2); CREATININE FOR GFR 1.39 MG/DL (0.70-1.30); GLOMERULAR FILTRATION RATE 53.6 (>42); POTASSIUM SERUM 3.5 MEQ/L (3.5-5.1); TOTAL PROTEIN 6.7 GM/DL (6.4-8.2)
[2017-04-14] MEDS: PANTOPRAZOLE 40MG TAB (PROTONIX) PO SCH (08:13)
[2017-04-14] MEDS: oxyCODONE 5MG TAB PO PRN (08:14)
--- NOTE | 2017-04-14 09:26 | IPNPDOC ---
Engineering And Development Director Progress Note DATE OF SERVICE: 04/14/17 DATE OF ADMISSION: Apr 13, 2017 at 14:10 INPATIENT REHABILITATION ADMISSION DAY: #2 SUBJECTIVE: Patient is a 72-year-old left-handed white male with multiple myeloma who developed multiple lumbar compression fractures and cauda equina compression status post L2 to S1 laminectomy and decompression with onlay bone graft. Patient needs to learn adaptive mobility specially how to use the TLSO effectively and requires neuromuscular facilitation of bilateral lower extremities. Patient is admitted for trial of neuro rehabilitation of nontraumatic spinal cord injury paraparesis. Patient without complaints today. Not able to handle TLSO straps independently due to posterior shell's rings position only reachable with one hand. Patient without complaints, but did not sleep very well. He is declining Lactulose due to no longer being constipated and not wishing to have diarrhea. ALLERGIES: See Below MEDICATIONS: Reviewed, see below. OBJECTIVE: VITAL SIGNS: Please see below. PHYSICAL EXAMINATION: GENERAL: Overweight elderly white male in [facility] sitting up in his room in no acute distress. HEENT: Normocephalic/atraumatic. CARDIOVASCULAR: Regular rate and rhythm with normal S1 and S2 but 3/6 holosystolic murmur. 2 out 4 bilateral radial pulses. LUNGS: All tipton clear auscultation. ABDOMEN: Obese, normal bowel sounds in all quadrants. NEUROLOGICAL: Alert and oriented 4. Speech is clear coherent and appropriate. Affect is pleasant and cooperative. Memory is intact. Bilateral upper extremities with good plus to full motor and sensory intact with normal tone. Bilateral lower extremities showing fair plus to good strength. SKIN: Grossly intact. LABORATORY DATA: Reviewed. Please see below. MICROBIOLOGY: Please see below. IMAGING: No new imaging. DVT prophylaxis ordered?: ZORAIDA hose and sequential compression stockings. ASSESSMENT AND PLAN: 1. Rehabilitation of nontraumatic cauda equina: Patient starting today in physical and occupational therapy routines having been evaluated yesterday. Focus is going to be on learning safe mobility and ADLs she is in a front wheeled walker but also wheelchair techniques including sliding board and assessing for appropriate adaptive equipment to facilitate patient's return to home. Patient is having a ramp built which will allow wheelchair access or easier front wheel walker access. Patient still showing some unsteadiness on his feet but once he is fully up he does show fairly good gaining distance. However, he will need some training with stairs to deal with the community. Patient very motivated and has a supportive . 2. Laminectomy with L2 to S1 fusion by bone overlay: Is very important to patient learns how to consistently and safely use the TLSO to keep him in good by position and avoid any movement of the surgical site so that the bone overlay can take purchase. As noted above we need to get little modification of straps to allow patient to be independent in donning the TLSO. This morning the anterior piece was on the outside so patient did not have a snugger fit as I would like. I have also explained to patient the importance of having firm contact to the sternum and pubic symphysis and not to let the lower portion right up into the abdomen along with having the mid to lower thoracic contact to maintain appropriate position and the device. 3. Anemia: H&H is 9.6 and 30.2%. We will continue to watch. 4. Thrombocythemia: Platelet count of 128,000 today 04/14/17. We will continue to watch this. 5. Chronic kidney disease: BUN/creatinine are at 21 and 1.39 today 04/14/17. We will continue to watch this. 6. Hypoalbuminemia: Patient with fairly severe hypoalbuminemia of 2.1 today 04/14. Trying encourage appropriate nutrition. However I suspect the multiple myeloma is probably a long-standing contributing factor to the level of severity patient has bee on what would be expected for his recent major surgery. TIME SPENT: Chart Review, examination and documentation required greater than 25 minutes. Allergies Coded Allergies: No Known Drug Allergy (Verified Allergy, Unknown, 03/11/17) NO KNOWN per PATIENT Vital Signs Vital Signs Date Time Temp Pulse Resp B/P (MAP) Pulse Ox O2 Delivery O2 Flow Rate FiO2 04/14/17 08:45 18 04/14/17 06:00 99.1 72 167/74 (105) 95 Room Air Laboratory Data CBC/BMP Laboratory Tests 04/14/17 06:23 Red Blood Count 3.18 L, Mean Corpuscular Volume 95.0, Mean Corpuscular Hemoglobin 30.1, Mean Corpuscular Hemoglobin Concent 31.7 L, Red Cell Distribution Width 16.2 H, Neutrophils (%) (Auto) 82.6 H, Lymphocytes (%) (Auto ) 8.5 L, Monocytes (%) (Auto) 5.3 H, Eosinophils (%) (Auto) 1.8, Basophils (%) ( Auto) 0.2, Neutrophils # (Auto) 3.9, Lymphocytes # (Auto) 0.5 L, Monocytes # ( Auto) 0.3, Eosinophils # (Auto) 0.1, Basophils # (Auto) 0.0, Calcium Level 7.9 L , Aspartate Amino Transf (AST/SGOT) 16, Alanine Aminotransferase (ALT/SGPT) 16, Alkaline Phosphatase 64, Total Bilirubin 0.3, Total Protein 6.7, Albumin 2.1 L Labs 24H Laboratory Tests 2 04/14/17 06:23: White Blood Count 4.7, Red Blood Count 3.18L, Hemoglobin 9.6L, Hematocrit 30.2L , Mean Corpuscular Volume 95.0, Mean Corpuscular Hemoglobin 30.1, Mean Corpuscular Hemoglobin Concent 31.7L, Red Cell Distribution Width 16.2H, Platelet Count 128L, Neutrophils (%) (Auto) 82.6H, Lymphocytes (%) (Auto) 8.5L, Monocytes (%) (Auto) 5.3H, Eosinophils (%) (Auto) 1.8, Basophils (%) (Auto) 0.2 , Neutrophils # (Auto) 3.9, Lymphocytes # (Auto) 0.5L, Monocytes # (Auto) 0.3, Eosinophils # (Auto) 0.1, Basophils # (Auto) 0.0, Large Unclassified Cells % 1.5 , Large Unclassified Cells # 0.1, Anion Gap 9, Glomerular Filtration Rate 53.6, Blood Urea Nitrogen 21H, Creatinine 1.39H, Sodium Level 142, Potassium Level 3.5 , Chloride Level 110H, Carbon Dioxide Level 23, Calcium Level 7.9L, Aspartate Amino Transf (AST/SGOT) 16, Alanine Aminotransferase (ALT/SGPT) 16, Alkaline Phosphatase 64, Total Bilirubin 0.3, Total Protein 6.7, Albumin 2.1L, Albumin/ Globulin Ratio 0.46L Current Medications Current Medications Current Medications Acetaminophen (Tylenol Tab) 650 mg Q6HP PRN PO PAIN OR FEVER Last administered on 04/14/17t 05:27; Start 04/13/17 at 14:00; Stop 05/13/17 at 13:59 Lactulose (Cephulac) 30 ml Q8H PO ; Start 04/13/17 at 14:00; Stop 04/14/17 at 08 :20; Status DC Metoclopramide HCl (Reglan) 5 mg Q6H PO ; Start 04/13/17 at 12:00; Stop at 14:34; Status DC Metoclopramide HCl (Reglan) 5 mg Q6H PO Last administered on 04/14/17 05:26; Start 04/13/17 at 18:00; Stop 05/13/17 at 17:59 Morphine Sulfate (Msir) 7.5 mg Q4HP PRN PO PAIN(5-7); Start 04/13/17 at 14:15; Stop 04/13/17 at 14:26; Status DC Morphine Sulfate (Msir) 15 mg Q4HP PRN PO SEVERE PAIN (PS 8-10); Start at 14:15; Stop 04/13/17 at 14:26; Status DC Oxycodone HCl (Roxicodone, Oxyir) 5 mg Q4HP PRN PO PAIN 5-7 Last administered on 04/14/17 08:14; Start 04/13/17 at 14:30; Stop 04/20/17 at 14:29 Oxycodone HCl (Roxicodone, Oxyir) 10 mg Q4HP PRN PO PAIN 8-10; Start 04/13/17 at 14:30; Stop 04/20/17 at 14:29 Pantoprazole Sodium (Protonix) 40 mg DAILY PO Last administered on 04/14/17 08 :13; Start 04/14/17 at 09:00; Stop 05/14/17 at 08:59 IFEANYI RIOS MD Apr 14, 2017 09:26
--- NOTE | 2017-04-14 10:47 | CR.PDOC ---
[facility] Consultation Consultation CONSULTATION REPORT FOR: Dr Grissom REASON FOR CONSULTATION: Medical Management DATE OF VISIT: 04/14/17 ATTENDING: Dr. Daniel Eden PCP: Dr Korey Mina HPI: 72year old M undergoing Lumbar laminectomy with spinal fusion as per neurosurgery 04/05/17. Discharged from [facility] to the care of [facility], Dr Grissom 04/13/17. No acute medical complaints today. Pt states pain has been controlled. Denies any fevers, chills, weakness, fatigue, Headache, Chest Pain, Shortness of breath, cough, palpitations, abdominal pain, N/V/D or changes in bowel or bladder habits. PMHx: 1. Pancytopenia. 2. Chronic kidney disease Stage IV. 3. History of urothelial carcinoma and status post right sided nephrectomy. 4. Orchitis status post right orchectomy. 5. Diffuse B cell lymphoma. 6. History of C. diff and MRSA. 7. Hypertension. 8. Anxiety/depression. 9. Gout. 10. Hypokalemia. PAST SURGICAL HISTORY: 1. Infusaport removal and replacement due to MRSA infection. 2. Orchiectomy on the right side. 3. L4-5 decompression. 4. Left knee medial meniscus repair. 5. Adhesive tenosynovitis repair. 6. Tibial tendon of the left foot. 7. Right nephrectomy and removal of the cuff of the bladder. 8. Cystoscope. 9. Status post transurethral resection of a bladder tumor. 10. Lumbar decompression/fusion. 04/05/17. Dr Luque. SOCHX: Resides in: lives with Marital Status: Tobacco use: quit 15 yrs ago ETOH: denies ROS: As noted in HPI, otherwise 11pt ROS of systems reviewed and unremarkable. Pt states eating and drinking well. Denies and abdominal discomfort. PE: GEN: 72yoM, appears stated age. Well-nourished, well developed. No acute distress. Alert and oriented x 3. Pleasant, interactive. HEENT: Normocephalic, atraumatic. Pupils are equal, round, and reactive to light. Extraocular movements are intact. No nystagmus appreciated. Sclera are nonicteric. Conjunctiva without injection. Nose midline. No facial asymmetry. Moist mucous membranes. Dentition fair. Pharynx pink and moist, no cobblestoning. Neck supple, trachea midline. No lymphadenopathy or thyromegaly appreciated. CHEST: Regular rate and rhythm, +S1, +S2. TLSO brace on currently. LUNGS: Clear to auscultation upper tipton, Pt with brace on. No wheezes, rales, or rhonchi. Breathing appears symmetric and easy. ABD: Round, soft, non-tender, non-distended. +Bowel sounds throughout. No rebound or guarding. No costovertebral angle tenderness. EXT: No lower extremity edema appreciated. SKIN: [place], dry, warm. No rashes. NEURO: Alert and oriented x 3. No focal deficits appreciated. A&P: 72year old M undergoing Lumbar laminectomy with spinal fusion as per neurosurgery 04/05/17. Discharged from [facility] to the care of [facility], Dr Grissom 04/13/17. 1. Lumbar laminectomy with spinal fusion as per neurosurgery 04/05/17. Mgmt as per Neurosurgery. PT/OT as per Dr Grissom. Bowel care as per Dr Grissom. Pain control as per Dr Grissom. DVT prophylaxis. as per Dr Grissom 2. Post operative ileus. Resolved. Eating and drinking well. 3. Anemia of chronic disease. Monitor Hgb. S/P 4 units PRBC. Noted to have positive stool OB during admission. Outpt Colonoscopy recommended. 4. CKD4. SCr 1.39. Monitor. 5. H/O Multiple Myeloma/B cell Lymphoma. Seen previously by Dr Diaz. Plan for outpt f/u with oncology 6. H/O hyperparathyroidism/Vitamin D Deficiency. Restart supplements at d/c. 7. Depression. 8. HTN. Monitor. On Losartan 25mg daily as outpt which has been on hold since surgery, possibly consider adding back if needed. 9. M Obesity. Complicates care. 10. H/O bladder Ca s/p partial cystectomy/nephrectomy. Outpt F/U with Urology and oncology. Thank you for your consultation. We will continue to follow along with you. Vital Signs/I&O Vital Signs Date Time Temp Pulse Resp B/P (MAP) Pulse Ox O2 Delivery O2 Flow Rate FiO2 04/14/17 08:45 18 04/14/17 06:00 99.1 72 167/74 (105) 95 Room Air I&O- Last 24 Hours up to 6 AM 04/14/17 06:00 Intake Total 860 ml Output Total 2625 ml Balance -1765 ml Laboratory Data Labs 24H Laboratory Tests 2 04/14/17 06:23: White Blood Count 4.7, Red Blood Count 3.18L, Hemoglobin 9.6L, Hematocrit 30.2L , Mean Corpuscular Volume 95.0, Mean Corpuscular Hemoglobin 30.1, Mean Corpuscular Hemoglobin Concent 31.7L, Red Cell Distribution Width 16.2H, Platelet Count 128L, Neutrophils (%) (Auto) 82.6H, Lymphocytes (%) (Auto) 8.5L, Monocytes (%) (Auto) 5.3H, Eosinophils (%) (Auto) 1.8, Basophils (%) (Auto) 0.2 , Neutrophils # (Auto) 3.9, Lymphocytes # (Auto) 0.5L, Monocytes # (Auto) 0.3, Eosinophils # (Auto) 0.1, Basophils # (Auto) 0.0, Large Unclassified Cells % 1.5 , Large Unclassified Cells # 0.1, Anion Gap 9, Glomerular Filtration Rate 53.6, Blood Urea Nitrogen 21H, Creatinine 1.39H, Sodium Level 142, Potassium Level 3.5 , Chloride Level 110H, Carbon Dioxide Level 23, Calcium Level 7.9L, Aspartate Amino Transf (AST/SGOT) 16, Alanine Aminotransferase (ALT/SGPT) 16, Alkaline Phosphatase 64, Total Bilirubin 0.3, Total Protein 6.7, Albumin 2.1L, Albumin/ Globulin Ratio 0.46L CBC/BMP Laboratory Tests 04/14/17 06:23 Red Blood Count 3.18 L, Mean Corpuscular Volume 95.0, Mean Corpuscular Hemoglobin 30.1, Mean Corpuscular Hemoglobin Concent 31.7 L, Red Cell Distribution Width 16.2 H, Neutrophils (%) (Auto) 82.6 H, Lymphocytes (%) (Auto ) 8.5 L, Monocytes (%) (Auto) 5.3 H, Eosinophils (%) (Auto) 1.8, Basophils (%) ( Auto) 0.2, Neutrophils # (Auto) 3.9, Lymphocytes # (Auto) 0.5 L, Monocytes # ( Auto) 0.3, Eosinophils # (Auto) 0.1, Basophils # (Auto) 0.0, Calcium Level 7.9 L , Aspartate Amino Transf (AST/SGOT) 16, Alanine Aminotransferase (ALT/SGPT) 16, Alkaline Phosphatase 64, Total Bilirubin 0.3, Total Protein 6.7, Albumin 2.1 L Allergies Coded Allergies: No Known Drug Allergy (Verified Allergy, Unknown, 03/11/17) NO KNOWN per PATIENT Home Medications Scheduled Lactulose (Lactulose) 10 Gm/15 Ml Britney, 30 ML PO TID, #300 Pantoprazole Sodium (Pantoprazole Sodium) 40 Mg Tab, 40 MG PO DAILY, #30 Sertraline Hcl (Sertraline HCl) 50 Mg Tab, 50 MG PO DAILY, (Reported) Scheduled PRN Acetaminophen (Tylenol) 325 Mg Tab, 650 MG PO Q4H PRN for PAIN / FEVER, ( Reported) Ondansetron (Ondansetron Odt) 4 Mg Tab, 4 MG PO QIDP PRN for NAUSEA, #20 Leonila Mcclelland Apr 14, 2017 10:47
--- NOTE | 2017-04-14 13:18 | PMRHPE ---
DATE OF ADMISSION: 04/13/2017 CHIEF COMPLAINT: 1. He is for admission for rehabilitation of cauda equina secondary to multiple myeloma cause lumbar compression fractures status post laminectomy of L2-S1 with bilateral complete facetectomies at L3-4, L4-5 and L5-S1 and partial at L2-3 and onlay bone graft fusion at L2-S1. DIAGNOSIS: 2. Bilateral lower extremity weakness related to cauda equal cord compression. 3. Multiple myeloma found on bone aspiration of lumbar vertebral body. 4. Moderate postoperative anemia. 5. Chronic kidney disease. 6. 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 Patient is a left-handed white male who was basically independent on activities of daily living and mobility going into the compression fractures which caused low back pain and lower extremity weakness. He was evaluated and found to have these deficits and elected surgical relief which was performed on 04/05/2017 with 1 liter estimated blood loss and receiving 2 units of blood transfusion and complicated by dural tear and CAF leak repaired in situ. Patient started a program of physical and occupational therapy initially performing with very limited strength and endurance two days ago showing marked improvement in the last two days, and today showing enough endurance with being able to walk around the entire length of the fifth floor unit to be able to participate in acute intensive rehabilitation. Therefore patient is felt to be able to participate and benefit from an acute intensive rehabilitation admission and is being admitted to the acute rehabilitation unit today for neuro rehabilitation, cauda equina, incomplete paraparesis that was non-traumatic in this left-handed gentleman. PAST MEDICAL HISTORY: Includes diagnoses above. Pancytopenia. Orchitis status post right orchiectomy. History of prior Clostridium difficile and Methicillin-resistant staphylococcus aureus (MRSA) status post treatment. Gout and prior hypokalemia currently clear. PAST SURGICAL HISTORY: Includes: Infusion port placement related to prior Methicillin-resistant staphylococcus aureus (MRSA) infection. Also status post orchiectomy on the right side status post L4-5 decompression previously. Status post left knee medial meniscus repair. Status post adhesive tenosynovitis repair. Status post tibial tendon of the left foot repair. Status post right nephrectomy and partial cystectomy. Status post cystoscope. Status transurethral resection of bladder tumor. SOCIAL HISTORY: Patient [place] the local region with his in a one story home with four steps in but they are having a ramp built. Otherwise no significant barriers in the house. Bath tub has been removed and they have a shower with doors and they are looking to have the doors removed and a curtain hanged to improve access. Patient not smoking for the last 15 years, before that 2-1/2 back a day smoker for 56 years. He does not drink and does not use elicit drugs and he has one dog and one cat in the home. Patient notes that he is FULL CODE confirmed by his . FAMILY HISTORY: Includes a sister with breast cancer. REVIEW OF SYSTEMS: Includes fatigability and some limited pain. Otherwise negative. ALLERGIES: Patient with no known drug allergies. MEDICATIONS ON ADMISSION: - pantoprazole 40 mg daily - Reglan 5 mg every 6 hours - oxycodone 5-10 mg every 4 hours for moderate or severe pain - Tylenol 650 mg every 6 hours for pain or fever - lactulose 30 mg every 8 hours PHYSICAL EXAMINATION: Patient is an average height, large frame elderly white male who looks approximately stated age of 72 and appears to be in mild musculoskeletal distress wearing a thoracolumbosacral orthosis (TLSO) in hospital gown but is alert and oriented times four and pleasant, cooperative. Patient is 108 kg. Vital signs show a temperature of 99.7 tympanically, blood pressure 164/79 with a pulse of 82, respirations 18 and pulse oximetry of 99% on room air. HEENT: Normocephalic/atraumatic with pupils equal, round, reactive to light and accommodation. Extraocular motions are intact. Hearing is fair to good. Patient has normal facial symmetry. Tongue is midline. Nares are clear with straight septum, no mucous seen. Neck is supple, nontender with normal thyroid for size and texture that is mobile. No nodules or goiters found. Coronary shows a regular rate and rhythm with grade 3 holosystolic murmur that is also appreciated in the carotids, greater on the right than the left with normal S1, S2 without S3, S4 or rubs. 2/4 bilateral radial pulses. Normal warmth of extremities. Lungs: Clear in all tipton to auscultation. Abdomen shows obese abdomen with bowel sounds present in all quadrants. Extremities show functional range of motion in bilateral upper and lower extremities and patient demonstrating approximately 3+ bilateral lower extremity strength and full upper extremity strength. Neurologically as above. Patient alert and oriented times four. He is pleasant , cooperative, memory is good. Speech is clear, coherent, appropriate. No dysarthria or dysphasia signs found. Light touch and vibration are intact grossly in bilateral upper and lower extremities. Tone is within normal limits in bilateral upper and lower extremities. Deep tendon reflexes show 1/4 triceps , 2/4 biceps, brachial radialis, trace knee jerks, trace ankle jerks, equivocal toes on plantar stimulation. LABORATORY DATA: Hemoglobin and hematocrit of 9.4 and 26.6 today with RDW elevated at 16.5 and platelets low at 128. Most recent CMP from yesterday shows normal sodium, potassium with mild elevation in chloride and 109, normal carbon dioxide at 21, BUN and creatinine elevated at 20 and 1.48 with glomerular filtration rate of 49.9 and fasting blood sugar of 113. Lactic acid is elevated at 4.9, uric acid is elevated at 8.0, calcium reduced notably to 7.6, albumin 2.2. Normal phosphorus, magnesium and decreased iron, total iron binding capacity, transferrin saturation and marked elevation in ferritin is seen. Liver function tests, however, are normal with total creatinine kinase notably high at 1193 along with elevation of CK-MB of 14.5 but normal troponin. Brain natriuretic peptide (BNP) is normal. IMPRESSION/PLAN: Diagnosis: 1. Rehabilitation of non-traumatic spinal cord injury with cauda equina level compression, not having neurogenic pain at this time: Patient is being admitted to the acute rehabilitation unit for a trial of acute neuro rehabilitation to facilitate him no how to use his TLSO which is critical for him to heal in the bone graft that was placed after the laminectomy. Also for neuromuscular facilitation in bilateral lower extremity. We should also be doing sensory mapping of the lower extremities in occupational therapy (OT) and work to teach patient adaptive mobility activities of daily living. Currently he does seem to have good potential for using a front wheel walker but also wheelchair techniques should be taught and appropriate adaptive equipment for home, likely a shower chair along with front wheel walker and possible commode chair to give him hand rehab tech for making transfers in a safe fashion. Overall I think patient is motivated and likely to do well and I anticipate the admission will probably be relatively brief but somewhere about 7 days. 2. Multiple myeloma. This seems to be fairly calm at this time. We will keep an eye out for any signs of secondary infection including further fractures and infections. 3. Deep venous thrombosis (DVT) prophylaxis. Will continue with trying to get patient more and more active, ambulating and use thromboembolic deterrent stockings (TEDS) and sequential compression stockings with this gentleman. 4. Chronic kidney disease. We will continue to observe this. Medicine consult has been sent. 5. Obesity with obstructive sleep apnea. We will encourage patient to use CPAP if he has one. Otherwise we will try to get him set up for that. 6. Postoperative ileus. This appears to have cleared but will have patient monitored and may adjust bowel program including using bulking agent and also Urecholine possibly to help simulate bowel if needed. POSTADMISSION PHYSICIAN EVALUATION: Patient is consistent with preadmission status review and preadmission screen. I do feel he does have a significant need to learn adaptive mobility activities of daily living to ensure safety and allow the best opportunity for healing. He does need to learn how to independently don and doff the TLSO and appropriate log rolling techniques when he does not have the TLSO (Thoracolumbosacral Orthotic) on and he is motivated and appears to have good prognosis and should be able to be discharged to home with his who is a retired nurse in approximately 1 week. TIME SPENT ON CHART REVIEW, HISTORY AND PHYSICAL DOCUMENTATION: Greater than 70 minutes. MYLES
[2017-04-14 14:00] VITALS: BP 164/81
[2017-04-14 20:00] VITALS: BP 148/64
--- NOTE | 2017-04-15 01:30 | REPUSA ---
HISTORY: Pain and swelling. Rule out deep venous thrombosis. TECHNIQUE: Realtime sonographic images were obtained in multiple projections. FINDINGS: There is evidence of echogenic material in the left common femoral vein with limited flow and leesa sibility compatible with acute DVT. The remaining veins demonstrate normal echo-free lumen, compressibility and flow. IMPRESSION: Findings compatible with acute DVT in the left common femoral vein as above. Thank you for your kind referral of this patient.
[2017-04-15 02:09] LABS: BASO % 0.4 % (0.0-1.0); EOS # 0.1 K/mm3 (0.0-0.50); EOS % 1.2 % (0.0-3.0); LARGE UNSTAINED CELL # 0.2 K/mm3 (0.0-0.4); LYMPH # 0.6 K/mm3 (1.5-4.5); LYMPH % 10.8 % (24.0-44.0); MEAN CORPUSCULAR HEMOGLOBIN 30.6 pg (27.0-33.0); MEAN CORPUSCULAR VOLUME 92.8 fl (80.0-96.0); MONO # 0.4 K/mm3 (0.0-0.8); NEUTROPHILS # 4.7 K/mm3 (1.8-7.7); NEUTROPHILS % 78.6 % (36.0-66.0); PLATELET COUNT, AUTOMATED 126 k/mm3 (150-450); RED CELL DISTRIBUTION WIDTH 15.9 % (11.5-14.5); WHITE BLOOD COUNT 5.9 K/mm3 (4.0-10.0)
[2017-04-15 02:36] LABS: INR 1.18
[2017-04-15] MEDS: METOCLOPRAMIDE 5 MG TAB PO SCH ×4 (05:16→23:02)
[2017-04-15 06:00] VITALS: BP 154/70
[2017-04-15 07:09] LABS: BASO % 0.1 % (0.0-1.0); LARGE UNSTAINED CELL # 0.1 K/mm3 (0.0-0.4); LARGE UNSTAINED CELL % 1.6 % (0.0-4.0); LYMPH # 0.5 K/mm3 (1.5-4.5); LYMPH % 8.1 % (24.0-44.0); MEAN CORPUSCULAR HEMOGLOBIN 30.6 pg (27.0-33.0); MEAN CORPUSCULAR HGB CONC 33.2 g/dl (32.0-36.5); MEAN CORPUSCULAR VOLUME 92.2 fl (80.0-96.0); MONO # 0.3 K/mm3 (0.0-0.8); MONO % 5.9 % (0.0-5.0); NEUTROPHILS # 4.3 K/mm3 (1.8-7.7); NEUTROPHILS % 83.3 % (36.0-66.0); PLATELET COUNT, AUTOMATED 125 k/mm3 (150-450); WHITE BLOOD COUNT 5.2 K/mm3 (4.0-10.0)
[2017-04-15 07:14] LABS: INR 1.15
[2017-04-15] MEDS: PANTOPRAZOLE 40MG TAB (PROTONIX) PO SCH (08:17)
[2017-04-15] MEDS: ACETAMINOPHEN TAB 650MG DOSE (2X325MG) PO PRN ×2 (08:18→20:17)
--- NOTE | 2017-04-15 08:56 | REP ---
Portable chest x-ray: Single view. History: Fever. Comparison study: March 03, 2017. Findings: There is a Swmxmq-U-Suxe catheter in place via the left side as before. The lungs are well inflated. No infiltrate is seen. Heart is not felt to be enlarged. The aorta somewhat tortuous. There are degenerative changes in the thoracic spine. Impression: No infiltrate seen. Signed by Alfredito Gregorio MD 04/15/2017 08:59 A
[2017-04-15] MEDS: amLODIPine 5 MG TAB PO SCH ×2 (09:00→11:49)
[2017-04-15] MEDS ORDERED: LOSARTAN 25 MG TAB PO SCH (09:00)
[2017-04-15] MEDS: ENOXAPARIN 60 MG/0.6 ML SYR (J1650) SC SCH ×2 (09:03→21:36)
--- NOTE | 2017-04-15 09:47 | IPNPDOC ---
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 Patient needs to learn adaptive mobility specially how to use the TLSO effectively and requires neuromuscular facilitation of bilateral lower extremities. Patient is admitted for trial of neuro rehabilitation of nontraumatic spinal cord injury paraparesis. Patient with complaint of decrease in hearing today, but no chest, Left Lower Extremity or other pain, any dyspnea, ALLERGIES: See Below MEDICATIONS: Reviewed, see below. OBJECTIVE: VITAL SIGNS: Please see below. PHYSICAL EXAMINATION: GENERAL: Overweight elderly white male in [facility] sitting up in his room in no acute distress. HEENT: Normocephalic/atraumatic. Lots of cerumen in ears, Iqbal lateralizes to Left, Rinne Left BC>AC, Right AC> BC. CARDIOVASCULAR: Regular rate and rhythm with normal S1 and S2 but 3/6 holosystolic murmur. 2 out 4 bilateral radial pulses. LUNGS: All tipton clear auscultation except right medial middle lobe. ABDOMEN: Obese, normal bowel sounds in all quadrants. NEUROLOGICAL: Alert and oriented 4. Speech is clear coherent and appropriate. Affect is pleasant and cooperative. Memory is intact. Bilateral upper extremities with good plus to full motor and sensory intact with normal tone. Bilateral lower extremities showing fair plus to good strength. SKIN: Grossly intact. EXTREMITIES: No cords, heat, erythema, or tenderness in Bilateral Lower Extremities. LABORATORY DATA: Reviewed. Please see below. MICROBIOLOGY: Please see below. IMAGING: LE Doppler U/S HISTORY: Pain and swelling. Rule out deep venous thrombosis. TECHNIQUE: Realtime sonographic images were obtained in multiple projections. FINDINGS: There is evidence of echogenic material in the left common femoral vein with limited flow and compressibility compatible with acute DVT. The remaining veins demonstrate normal echo-free lumen, compressibility and flow. IMPRESSION: Findings compatible with acute DVT in the left common femoral vein as above. Thank you for your kind referral of this patient. Portable chest x-ray: Single view. History: Fever. Comparison study: March 03, 2017. Findings: There is a [id number]-[id number] catheter in place via the left side as before. The lungs are well inflated. No infiltrate is seen. Heart is not felt to be enlarged. The aorta somewhat tortuous. There are degenerative changes in the thoracic spine. Impression: No infiltrate seen. Signed by Alfredito Gregorio MD 04/15/2017 08:59 A DVT prophylaxis ordered?: Now Lovenox 50mg q12hrs, ZORAIDA hose and sequential compression stockings. ASSESSMENT AND PLAN: 1. Rehabilitation of nontraumatic cauda equina: Patient in physical and occupational therapy routines. Focus is going to be on learning safe mobility and ADLs she is in a front wheeled walker but also wheelchair techniques including sliding board and assessing for appropriate adaptive equipment to facilitate patient's return to home. Patient is having a ramp built which will allow wheelchair access or easier front wheel walker access. Patient still showing some unsteadiness on his feet but once he is fully up he does show fairly good gaining distance. However, he will need some training with stairs to deal with the community. Patient very motivated and has a supportive . Rehabilitation team rounds: Patient overall has been doing very well in physical and occupational therapy and is getting very close to meeting his discharge goals. Therefore we will look to discharge him to home with his on 04/12/2017. He will require a commode front wheeled walker and shower chair. Patient will require home care for nursing and do medical monitoring, physical and occupational therapy if further improve strength and coordination in bilateral lower extremities and insure patient has good techniques for maintaining the bone overlay graft. 2. Laminectomy with L2 to S1 fusion by bone overlay: Is very important to patient learns how to consistently and safely use the TLSO to keep him in good by position and avoid any movement of the surgical site so that the bone overlay can take purchase. As noted above we need to get little modification of straps to allow patient to be independent in donning the TLSO. This morning the anterior piece was on the outside so patient did not have a snugger fit as I would like. I have also explained to patient the importance of having firm contact to the sternum and pubic symphysis and not to let the lower portion right up into the abdomen along with having the mid to lower thoracic contact to maintain appropriate position and the device. 3. Anemia: H&H is 9.2 and 27.8% with little change. We will continue to watch labs and vitals signs: also I may repeat stool occult blood test. 4. Thrombocythemia: Platelet count of 125,000 today 04/15/17. We will continue to watch this. 5. Chronic kidney disease: BUN/creatinine are at 21 and 1.39 on 04/14/17. We will continue to watch this. 6. Hypoalbuminemia: Patient with fairly severe hypoalbuminemia of 2.1 04/14/17. Trying encourage appropriate nutrition. However I suspect the multiple myeloma is probably a long-standing contributing factor to the level of severity patient has bee on what would be expected for his recent major surgery. 7. Possible New Left Femoral DVT: Fever last night and U/S showing likely Left Femoral DVT, though age not certain, patient has been more hydrated and active with Sequential Leg Compression Stockings when down in bed and mildly elevated ProTime. New right medial middle lobe wheezing, but good oxygenation 95 and 93% this morning on Room Air with consistent Resp. Rate of 18. No labor in breathing or chest pain or other pain. I will give one DuoNeb treatment for the breathing and continue PT/OT while starting Lovenox 50 mg q 12 hours in this 112 kg gentleman for slightly less than 1mg/Kg/day dosing. Ms. Mcclelland is reviewing this and #8 & #9 below with Medicine Attending. Possible need to reconsult Hematology/Oncology. If patient to go on strict bedrest will need to interrupt stay. 8. Hypertension: Previously on Losartan 25 mg Daily. Ms. Mcclelland is starting Norvasc and we watch renal function and BP. 9. Fever: U/A not supportive, but DVT likely source with possible Pulmonary Embolus that could be causing the wheezing. Left Otitis Media also a possibility. 10. Hearing: Likely congested left middle ear. I will start Debrox to ears and recheck later for Otitis Media. TIME SPENT: Chart Review, examination and documentation required greater than 35 minutes. Allergies Coded Allergies: No Known Drug Allergy (Verified Allergy, Unknown, 03/11/17) NO KNOWN per PATIENT Vital Signs Vital Signs Date Time Temp Pulse Resp B/P (MAP) Pulse Ox O2 Delivery O2 Flow Rate FiO2 04/15/17 07:44 Room Air 04/15/17 06:00 99.5 75 18 154/70 (98) 93 Laboratory Data CBC/BMP Laboratory Tests 04/15/17 01:45 Red Blood Count 2.95 L, Mean Corpuscular Volume 92.8, Mean Corpuscular Hemoglobin 30.6, Mean Corpuscular Hemoglobin Concent 33.0, Red Cell Distribution Width 15.9 H, Neutrophils (%) (Auto) 78.6 H, Lymphocytes (%) (Auto ) 10.8 L, Monocytes (%) (Auto) 6.0 H, Eosinophils (%) (Auto) 1.2, Basophils (%) (Auto) 0.4, Neutrophils # (Auto) 4.7, Lymphocytes # (Auto) 0.6 L, Monocytes # ( Auto) 0.4, Eosinophils # (Auto) 0.1, Basophils # (Auto) 0.0 04/15/17 06:50 Red Blood Count 3.01 L, Mean Corpuscular Volume 92.2, Mean Corpuscular Hemoglobin 30.6, Mean Corpuscular Hemoglobin Concent 33.2, Red Cell Distribution Width 16.0 H, Neutrophils (%) (Auto) 83.3 H, Lymphocytes (%) (Auto ) 8.1 L, Monocytes (%) (Auto) 5.9 H, Eosinophils (%) (Auto) 1.0, Basophils (%) ( Auto) 0.1, Neutrophils # (Auto) 4.3, Lymphocytes # (Auto) 0.5 L, Monocytes # ( Auto) 0.3, Eosinophils # (Auto) 0.0, Basophils # (Auto) 0.0 Labs 24H Laboratory Tests 2 04/15/17 01:45: White Blood Count 5.9, Red Blood Count 2.95L, Hemoglobin 9.0L, Hematocrit 27.4L , Mean Corpuscular Volume 92.8, Mean Corpuscular Hemoglobin 30.6, Mean Corpuscular Hemoglobin Concent 33.0, Red Cell Distribution Width 15.9H, Platelet Count 126L, Neutrophils (%) (Auto) 78.6H, Lymphocytes (%) (Auto) 10.8L , Monocytes (%) (Auto) 6.0H, Eosinophils (%) (Auto) 1.2, Basophils (%) (Auto) 0.4, Neutrophils # (Auto) 4.7, Lymphocytes # (Auto) 0.6L, Monocytes # (Auto) 0.4 , Eosinophils # (Auto) 0.1, Basophils # (Auto) 0.0, Large Unclassified Cells % 3.0, Large Unclassified Cells # 0.2 04/15/17 02:13: Prothrombin Time 15.2H, Prothromb Time International Ratio 1.18, Activated Partial Thromboplast Time 32.3 04/15/17 03:34: Urine Appearance CLEAR, Urine Color STRAW, Urine pH 6.0, Urine Specific [place] 1.006, Urine Protein 2+H, Urine Glucose (UA) NEGATIVE, Urine Ketones NEGATIVE, Urine Urobilinogen 0.2, Urine Bilirubin NEGATIVE, Urine Leukocyte Esterase NEGATIVE, Urine Blood 1+H, Urine Nitrite NEGATIVE, Urine WBC (Auto) 0, Urine RBC (Auto) 0, Urine Hyaline Casts (Auto) 0, Urine Bacteria (Auto) 1+H, Urine Squamous Epithelial Cells 0, Urine Sperm (Auto) 04/15/17 06:50: White Blood Count 5.2, Red Blood Count 3.01L, Hemoglobin 9.2L, Hematocrit 27.8L , Mean Corpuscular Volume 92.2, Mean Corpuscular Hemoglobin 30.6, Mean Corpuscular Hemoglobin Concent 33.2, Red Cell Distribution Width 16.0H, Platelet Count 125L, Neutrophils (%) (Auto) 83.3H, Lymphocytes (%) (Auto) 8.1L, Monocytes (%) (Auto) 5.9H, Eosinophils (%) (Auto) 1.0, Basophils (%) (Auto) 0.1 , Neutrophils # (Auto) 4.3, Lymphocytes # (Auto) 0.5L, Monocytes # (Auto) 0.3, Eosinophils # (Auto) 0.0, Basophils # (Auto) 0.0, Large Unclassified Cells % 1.6 , Large Unclassified Cells # 0.1, Prothrombin Time 14.9H, Prothromb Time International Ratio 1.15, Activated Partial Thromboplast Time 31.0 Microbiology Microbiology 04/15/17 Blood Culture, Received Pending 04/15/17 Blood Culture, Received Pending 04/15/17 Urine Culture, Received Pending Current Medications Current Medications Current Medications Acetaminophen (Tylenol Tab) 650 mg Q6HP PRN PO PAIN OR FEVER Last administered on 04/15/17t 08:18; Start 04/13/17 at 14:00; Stop 05/13/17 at 13:59 Enoxaparin Sodium (Lovenox) 50 mg Q12H SC Last administered on 04/15/17 09:03 ; Start 04/15/17 at 09:00; Stop 04/20/17 at 08:59 Lactulose (Cephulac) 30 ml Q8H PO ; Start 04/13/17 at 14:00; Stop 04/14/17 at 08 :20; Status DC Losartan Potassium (Cozaar) 12.5 mg DAILY PO ; Start 04/16/17 at 09:00; Stop at 08:59; Status UNV Metoclopramide HCl (Reglan) 5 mg Q6H PO ; Start 04/13/17 at 12:00; Stop at 14:34; Status DC Metoclopramide HCl (Reglan) 5 mg Q6H PO Last administered on 04/15/17 05:16; Start 04/13/17 at 18:00; Stop 05/13/17 at 17:59 Morphine Sulfate (Msir) 7.5 mg Q4HP PRN PO PAIN(5-7); Start 04/13/17 at 14:15; Stop 04/13/17 at 14:26; Status DC Morphine Sulfate (Msir) 15 mg Q4HP PRN PO SEVERE PAIN (PS 8-10); Start at 14:15; Stop 04/13/17 at 14:26; Status DC Oxycodone HCl (Roxicodone, Oxyir) 5 mg Q4HP PRN PO PAIN 5-7 Last administered on 04/14/17 08:14; Start 04/13/17 at 14:30; Stop 04/20/17 at 14:29 Oxycodone HCl (Roxicodone, Oxyir) 10 mg Q4HP PRN PO PAIN 8-10; Start 04/13/17 at 14:30; Stop 04/20/17 at 14:29 Pantoprazole Sodium (Protonix) 40 mg DAILY PO Last administered on 04/15/17 08 :17; Start 04/14/17 at 09:00; Stop 05/14/17 at 08:59 IFEANYI RIOS MD Apr 15, 2017 09:47
[2017-04-15] MEDS ORDERED: IPRATROPIUM 0.5MG/ALBUTEROL 2.5MG INH SOL UD 3ML (DUONEB)(J7620) NEB ONE (10:00)
--- NOTE | 2017-04-15 11:08 | IPNPDOC ---
Date Seen The patient was seen on 04/15/17. Progress Note HPI: 72year old M undergoing Lumbar laminectomy with spinal fusion as per neurosurgery 04/05/17. Discharged from [facility] to the care of ARU, Dr Grissom 04/13/17. No acute medical complaints today. Pt states pain has been controlled. Pt is currently OOB with PT. Denies dyspnea, cough, CHATTERJEE. Some nasal congestion reported. Pt denies any LE pain or swelling. Pt was noted to have elevated temp last evening with W/U requested. Remarkable for LLE DVT. Denies any fevers, chills, weakness, fatigue, Headache, Chest Pain, Shortness of breath, cough, palpitations, abdominal pain, N/V/D or changes in bowel or bladder habits. PMHx: 1. Pancytopenia. 2. Chronic kidney disease Stage IV. 3. History of urothelial carcinoma and status post right sided nephrectomy. 4. Orchitis status post right orchectomy. 5. Diffuse B cell lymphoma. 6. History of C. diff and MRSA. 7. Hypertension. 8. Anxiety/depression. 9. Gout. 10. Hypokalemia. PAST SURGICAL HISTORY: 1. Infusaport removal and replacement due to MRSA infection. 2. Orchiectomy on the right side. 3. L4-5 decompression. 4. Left knee medial meniscus repair. 5. Adhesive tenosynovitis repair. 6. Tibial tendon of the left foot. 7. Right nephrectomy and removal of the cuff of the bladder. 8. Cystoscope. 9. Status post transurethral resection of a bladder tumor. 10. Lumbar decompression/fusion. 04/05/17. Dr Luque. SOCHX: Resides in: lives with Marital Status: Tobacco use: quit 15 yrs ago ETOH: denies ROS: As noted in HPI, otherwise 11pt ROS of systems reviewed and unremarkable. Pt states eating and drinking well. Denies and abdominal discomfort. PE: GEN: 72yoM, appears stated age. Well-nourished, well developed. No acute distress. Alert and oriented x 3. Pleasant, interactive. HEENT: Normocephalic, atraumatic. Pupils are equal, round, and reactive to light. Extraocular movements are intact. No nystagmus appreciated. Sclera are nonicteric. Conjunctiva without injection. Nose midline. No facial asymmetry. Moist mucous membranes. Dentition fair. Pharynx pink and moist, no cobblestoning. Neck supple, trachea midline. No lymphadenopathy or thyromegaly appreciated. CHEST: Regular rate and rhythm, +S1, +S2. TLSO brace on currently. LUNGS: Clear to auscultation upper [place], Pt with brace on. No wheezes, rales, or rhonchi. Breathing appears symmetric and easy. ABD: Round, soft, non-tender, non-distended. +Bowel sounds throughout. No rebound or guarding. No costovertebral angle tenderness. EXT: No lower extremity edema appreciated. There is no warmth, TTP, erythema, cording noted. SKIN: Tamora, dry, warm. No rashes. NEURO: Alert and oriented x 3. No focal deficits appreciated. UC pending BC x 2 pending. LE U/S There is evidence of echogenic material in the left common femoral vein with limited flow and compressibility compatible with acute DVT. The remaining veins demonstrate normal echo-free lumen, compressibility and flow CXR No infiltrate seen. A&P: 72year old M undergoing Lumbar laminectomy with spinal fusion as per neurosurgery 04/05/17. Discharged from [facility] to the care of ARU, Dr Grissom 04/13/17. 1. Lumbar laminectomy with spinal fusion as per neurosurgery 04/05/17. Mgmt as per Neurosurgery. PT/OT as per Dr Grissom. Bowel care as per Dr Grissom. Pain control as per Dr Grissom. 2. Post operative ileus. Resolved. Eating and drinking well. 3. Anemia of chronic disease. Monitor Hgb. S/P 4 units PRBC. Noted to have positive stool OB during admission. Outpt EGD/Colonoscopy recommended. 4. CKD4. SCr 1.39. Monitor. 5. H/O Multiple Myeloma/B cell Lymphoma. Seen previously by Dr Diaz. Plan for outpt f/u with oncology 6. H/O hyperparathyroidism/Vitamin D Deficiency. Restart supplements at d/c. 7. Depression. 8. HTN. Hold off on restarting ARB related to renal function. Add Norvasc 5 mg daily with hold parameters. Monitor BP, manual requested as there is a wide range of BP readings. 9. M Obesity. Complicates care. 10. H/O bladder Ca s/p partial cystectomy/nephrectomy. Outpt F/U with Urology and oncology. 11. LLE DVT. Lovenox 50mg BID as per attending. Dr Luque aware and agreeable to LMWH. Will repeat Stool OB. Monitor for any signs of bleeding. Monitor daily CBC. Pt is OOB and active this AM with no dyspnea, no cough, no fever, no tachycardia and O2 sats stable. Discussed as well with Dr Dodd. VS, I&O, 24H, Fishbone Vital Signs/I&O Vital Signs Date Time Temp Pulse Resp B/P (MAP) Pulse Ox O2 Delivery O2 Flow Rate FiO2 04/15/17 09:00 70 108/62 04/15/17 07:44 Room Air 04/15/17 06:00 99.5 18 93 I&O- Last 24 Hours up to 6 AM 04/15/17 05:59 Intake Total 1200 ml Output Total 600 ml Balance 600 ml Laboratory Data 24H LABS Laboratory Tests 2 04/15/17 01:45: White Blood Count 5.9, Red Blood Count 2.95L, Hemoglobin 9.0L, Hematocrit 27.4L , Mean Corpuscular Volume 92.8, Mean Corpuscular Hemoglobin 30.6, Mean Corpuscular Hemoglobin Concent 33.0, Red Cell Distribution Width 15.9H, Platelet Count 126L, Neutrophils (%) (Auto) 78.6H, Lymphocytes (%) (Auto) 10.8L , Monocytes (%) (Auto) 6.0H, Eosinophils (%) (Auto) 1.2, Basophils (%) (Auto) 0.4, Neutrophils # (Auto) 4.7, Lymphocytes # (Auto) 0.6L, Monocytes # (Auto) 0.4 , Eosinophils # (Auto) 0.1, Basophils # (Auto) 0.0, Large Unclassified Cells % 3.0, Large Unclassified Cells # 0.2 04/15/17 02:13: Prothrombin Time 15.2H, Prothromb Time International Ratio 1.18, Activated Partial Thromboplast Time 32.3 04/15/17 03:34: Urine Appearance CLEAR, Urine Color STRAW, Urine pH 6.0, Urine Specific [place] 1.006, Urine Protein 2+H, Urine Glucose (UA) NEGATIVE, Urine Ketones NEGATIVE, Urine Urobilinogen 0.2, Urine Bilirubin NEGATIVE, Urine Leukocyte Esterase NEGATIVE, Urine Blood 1+H, Urine Nitrite NEGATIVE, Urine WBC (Auto) 0, Urine RBC (Auto) 0, Urine Hyaline Casts (Auto) 0, Urine Bacteria (Auto) 1+H, Urine Squamous Epithelial Cells 0, Urine Sperm (Auto) 04/15/17 06:50: White Blood Count 5.2, Red Blood Count 3.01L, Hemoglobin 9.2L, Hematocrit 27.8L , Mean Corpuscular Volume 92.2, Mean Corpuscular Hemoglobin 30.6, Mean Corpuscular Hemoglobin Concent 33.2, Red Cell Distribution Width 16.0H, Platelet Count 125L, Neutrophils (%) (Auto) 83.3H, Lymphocytes (%) (Auto) 8.1L, Monocytes (%) (Auto) 5.9H, Eosinophils (%) (Auto) 1.0, Basophils (%) (Auto) 0.1 , Neutrophils # (Auto) 4.3, Lymphocytes # (Auto) 0.5L, Monocytes # (Auto) 0.3, Eosinophils # (Auto) 0.0, Basophils # (Auto) 0.0, Large Unclassified Cells % 1.6 , Large Unclassified Cells # 0.1, Prothrombin Time 14.9H, Prothromb Time International Ratio 1.15, Activated Partial Thromboplast Time 31.0 CBC/BMP Laboratory Tests 04/15/17 01:45 Red Blood Count 2.95 L, Mean Corpuscular Volume 92.8, Mean Corpuscular Hemoglobin 30.6, Mean Corpuscular Hemoglobin Concent 33.0, Red Cell Distribution Width 15.9 H, Neutrophils (%) (Auto) 78.6 H, Lymphocytes (%) (Auto ) 10.8 L, Monocytes (%) (Auto) 6.0 H, Eosinophils (%) (Auto) 1.2, Basophils (%) (Auto) 0.4, Neutrophils # (Auto) 4.7, Lymphocytes # (Auto) 0.6 L, Monocytes # ( Auto) 0.4, Eosinophils # (Auto) 0.1, Basophils # (Auto) 0.0 04/15/17 06:50 Red Blood Count 3.01 L, Mean Corpuscular Volume 92.2, Mean Corpuscular Hemoglobin 30.6, Mean Corpuscular Hemoglobin Concent 33.2, Red Cell Distribution Width 16.0 H, Neutrophils (%) (Auto) 83.3 H, Lymphocytes (%) (Auto ) 8.1 L, Monocytes (%) (Auto) 5.9 H, Eosinophils (%) (Auto) 1.0, Basophils (%) ( Auto) 0.1, Neutrophils # (Auto) 4.3, Lymphocytes # (Auto) 0.5 L, Monocytes # ( Auto) 0.3, Eosinophils # (Auto) 0.0, Basophils # (Auto) 0.0 Microbiology Microbiology 04/15/17 Blood Culture, Received Pending 04/15/17 Blood Culture, Received Pending 04/15/17 Urine Culture, Received Pending Leonila Mcclelland Apr 15, 2017 11:08
[2017-04-15] MEDS: CARBAMIDE PEROXIDE 6.5% OTIC SOLN 15ML AU SCH ×2 (11:51→21:37)
[2017-04-15 14:00] VITALS: BP 160/78
[2017-04-15 20:10] VITALS: BP 132/64
--- NOTE | 2017-04-15 22:40 | REPUSA ---
CT of the lumbar spine without contrast Clinical history: Fluctuant mass around the incision site. Technique: Multiple axial CT images were obtained through the lumbar spine without administration of contrast. Coronal and sagittal 3-D reconstructed images were also obtained. Findings: The lumbar vertebral bodies are in satisfactory positioning and alignment. Laminectomy changes are se en from L2 through L5. Large amount of mixed attenuation fluid is seen at the laminectomy sites, exte nding posteriorly into the subcutaneous tissues. No discrete loculated fluid collection is seen. Jing ral tiny pockets of gas is noted. No acute fractures or dislocations are demonstrated. There is sever e osteopenia. Mild chronic compression fractures are seen it L2, L3, and L5. Intervertebral disc spac es are well-maintained. There is no evidence of facet subluxation. The neural foramen appear grossly patent. The spinal canal demonstrates normal caliber and contour without evidence of spinal stenosis. Impression: 1. Laminectomy changes from L2 through L5 are noted. Large amount of mixed attenuation fluid is seen at the surgical site, but no discrete loculated fluid collection is seen. Tiny pockets of gas are als o noted. These are likely normal postsurgical findings. However, evaluation is slightly limited secon ta to lack of intravenous contrast. If there is continued clinical concern for abscess, CT or MRI w ith contrast would be recommended. 2. Severe diffuse osteopenia with multiple levels of compression abnormalities as described. No acute fractures are identified.
--- NOTE | 2017-04-15 22:50 | REPUSA ---
CT of the thoracic spine without contrast Clinical history: Fluctuant mass at incision site. Technique: Multiple axial CT images were obtained through the thoracic spine without administration o f contrast. Coronal and sagittal 3-D reconstructed images were also obtained. Findings: The vertebral bodies are in satisfactory positioning and alignment. No fractures or dislocations are demonstrated. However, there is a lytic destructive lesion at the right lateral vertebral body of T5 and T6. The lytic changes extend into the right lateral posterior elements of T6 as well. Interverteb ral disc spaces are well-maintained. There is no evidence of facet subluxation. The neural foramen ap pear grossly patent. The spinal canal demonstrates normal caliber and contour without evidence of spi nal stenosis. The surrounding soft tissues are within normal limits. Bilateral pleural effusions are seen within the lungs. Impression: 1. No discrete subcutaneous soft tissue abnormality. No subcutaneous abscess identified. 2. Destructive osseous lesions within the T5 and T6 vertebral bodies as described, suspicious for met astatic disease. 3. Moderate sized bilateral pleural effusions.
[2017-04-16 06:00] VITALS: BP 142/80
[2017-04-16] MEDS: METOCLOPRAMIDE 5 MG TAB PO SCH ×4 (06:21→23:20)
[2017-04-16 06:35] LABS: MEAN CORPUSCULAR HEMOGLOBIN 30.9 pg (27.0-33.0); MEAN CORPUSCULAR HGB CONC 33.5 g/dl (32.0-36.5); MEAN CORPUSCULAR VOLUME 92.3 fl (80.0-96.0); WHITE BLOOD COUNT 4.7 K/mm3 (4.0-10.0)
[2017-04-16] MEDS: ALBUTEROL SULFATE 2.5 MG/0.5 ML INH NEB SOLN NEB SCH ×3 (08:00→23:33)
[2017-04-16 08:27] VITALS: BP 150/70
[2017-04-16] MEDS: amLODIPine 5 MG TAB PO SCH (08:27)
[2017-04-16] MEDS: PANTOPRAZOLE 40MG TAB (PROTONIX) PO SCH (08:27)
[2017-04-16] MEDS: CARBAMIDE PEROXIDE 6.5% OTIC SOLN 15ML AU SCH ×2 (08:28→20:20)
[2017-04-16] MEDS: ACETAMINOPHEN TAB 650MG DOSE (2X325MG) PO PRN (08:28)
[2017-04-16] MEDS: ENOXAPARIN 60 MG/0.6 ML SYR (J1650) SC SCH ×2 (08:28→20:20)
--- NOTE | 2017-04-16 10:33 | IPNPDOC ---
Insurance Executive Progress Note DATE OF SERVICE: 04/16/17 DATE OF ADMISSION: Apr 13, 2017 at 14:10 INPATIENT REHABILITATION ADMISSION DAY: #4 SUBJECTIVE: Patient is a 72-year-old left-handed white male with multiple myeloma who developed multiple lumbar compression fractures and cauda equina compression status post L2 to S1 laminectomy and decompression with onlay bone graft. Patient needs to learn adaptive mobility specially how to use the TLSO effectively and requires neuromuscular facilitation of bilateral lower extremities. Patient is admitted for trial of neuro rehabilitation of nontraumatic spinal cord injury paraparesis. Patient with complaint of serous drainage from back with no pain except right hip pain on movement which is old, ALLERGIES: See Below MEDICATIONS: Reviewed, see below. OBJECTIVE: VITAL SIGNS: Please see below. PHYSICAL EXAMINATION: GENERAL: Overweight elderly white male in [facility] TLSO sitting up in his room in no acute distress. HEENT: Normocephalic/atraumatic. Lots of cerumen in ears, Iqbal lateralizes to Left, Rinne Left BC>AC, Right AC> BC. CARDIOVASCULAR: Regular rate and rhythm with normal S1 and S2 but 3/6 holosystolic murmur. 2 out 4 bilateral radial pulses. LUNGS: All tipton clear auscultation. ABDOMEN: Obese, normal bowel sounds in all quadrants. NEUROLOGICAL: Alert and oriented 4. Speech is clear coherent and appropriate. Affect is pleasant and cooperative. Memory is intact. Bilateral upper extremities with good plus to full motor and sensory intact with normal tone. Bilateral lower extremities showing fair plus to good strength. SKIN: Grossly intact, with no heat, erythema, odor or tenderness at L-S Laminectomy site with extensive serous drainage with the barest of blood tinging from the top of the incision. The drainage site now stapled shut with 3 deonna. EXTREMITIES: No cords, heat, erythema, or tenderness in Bilateral Lower Extremities. LABORATORY DATA: Reviewed. Please see below. MICROBIOLOGY: Please see below. IMAGING: CT of the thoracic spine without contrast Clinical history: Fluctuant mass at incision site. Technique: Multiple axial CT images were obtained through the thoracic spine without administration of contrast. Coronal and sagittal 3-D reconstructed images were also obtained. Findings: The vertebral bodies are in satisfactory positioning and alignment. No fractures or dislocations are demonstrated. However, there is a lytic destructive lesion at the right lateral vertebral body of T5 and T6. The lytic changes extend into the right lateral posterior elements of T6 as well. Intervertebral disc spaces are well-maintained. There is no evidence of facet subluxation. The neural foramen appear grossly patent. The spinal canal demonstrates normal caliber and contour without evidence of spinal stenosis. The surrounding soft tissues are within normal limits. Bilateral pleural effusions are seen within the lungs. Impression: 1. No discrete subcutaneous soft tissue abnormality. No subcutaneous abscess identified. 2. Destructive osseous lesions within the T5 and T6 vertebral bodies as described, suspicious for metastatic disease. 3. Moderate sized bilateral pleural effusions. CT of the lumbar spine without contrast Clinical history: Fluctuant mass around the incision site. Technique: Multiple axial CT images were obtained through the lumbar spine without administration of contrast. Coronal and sagittal 3-D reconstructed images were also obtained. Findings: The lumbar vertebral bodies are in satisfactory positioning and alignment. Laminectomy changes are seen from L2 through L5. Large amount of mixed attenuation fluid is seen at the laminectomy sites, extending posteriorly into the subcutaneous tissues. No discrete loculated fluid collection is seen. Several tiny pockets of gas is noted. No acute fractures or dislocations are demonstrated. There is severe osteopenia. Mild chronic compression fractures are seen it L2, L3, and L5. Intervertebral disc spaces are well-maintained. There is no evidence of facet subluxation. The neural foramen appear grossly patent. The spinal canal demonstrates normal caliber and contour without evidence of spinal stenosis. Impression: 1. Laminectomy changes from L2 through L5 are noted. Large amount of mixed attenuation fluid is seen at the surgical site, but no discrete loculated fluid collection is seen. Tiny pockets of gas are also noted. These are likely normal postsurgical findings. However, evaluation is slightly limited secondary to lack of intravenous contrast. If there is continued clinical concern for abscess , CT or MRI with contrast would be recommended. 2. Severe diffuse osteopenia with multiple levels of compression abnormalities as described. No acute fractures are identified. DVT prophylaxis ordered?: Now Lovenox 50mg q12hrs, ZORAIDA hose and sequential compression stockings. ASSESSMENT AND PLAN: 1. Rehabilitation of nontraumatic cauda equina: Patient in physical and occupational therapy routines. Focus is going to be on learning safe mobility and ADLs she is in a front wheeled walker but also wheelchair techniques including sliding board and assessing for appropriate adaptive equipment to facilitate patient's return to home. Patient is having a ramp built which will allow wheelchair access or easier front wheel walker access. Patient still showing some unsteadiness on his feet but once he is fully up he does show fairly good gaining distance. However, he will need some training with stairs to deal with the community. Patient very motivated and has a supportive . Plan D/C to home on Wednesday. 2. Laminectomy with L2 to S1 fusion by bone overlay: Is very important to patient learns how to consistently and safely use the TLSO to keep him in good by position and avoid any movement of the surgical site so that the bone overlay can take purchase. As noted above we need to get little modification of straps to allow patient to be independent in donning the TLSO. This morning the anterior piece was on the outside so patient did not have a snugger fit as I would like. I have also explained to patient the importance of having firm contact to the sternum and pubic symphysis and not to let the lower portion right up into the abdomen along with having the mid to lower thoracic contact to maintain appropriate position and the device. It appears to be a draining seroma in the surgical site without signs of any infection. Now stapled shut. 3. Anemia: H&H is 8.8 and 26.3% with little change. We will continue to watch labs and vitals signs: also I may repeat stool occult blood test. 4. Thrombocythemia: Platelet count of 122,000 today 04/16/17. We will continue to watch this. 5. Chronic kidney disease: BUN/creatinine are at 21 and 1.39 on 04/14/17. We will continue to watch this. CMP on Wednesday. 6. Hypoalbuminemia: Patient with fairly severe hypoalbuminemia of 2.1 04/14/17. Trying encourage appropriate nutrition. However I suspect the multiple myeloma is probably a long-standing contributing factor to the level of severity patient has bee on what would be expected for his recent major surgery. 7. Possible New Left Femoral DVT: Fever last night and U/S showing likely Left Femoral DVT, though age not certain, patient has been more hydrated and active with Sequential Leg Compression Stockings when down in bed and mildly elevated ProTime. No labor in breathing or chest pain or other pain. Possible need to reconsult Hematology/Oncology. No respiratory distress or trouble oxygenating or any chest or Left thigh discomfort. Just some right hip joint pain that has been present for days. 8. Hypertension: Previously on Losartan 25 mg Daily. Ms. Mcclelland is started Norvasc 5 mg Daily and we watch renal function and BP, for now a little improvement on SBP. 9. Fever: U/A not supportive, but DVT likely source with possible Pulmonary Embolus that could be causing the wheezing. Left Otitis Media also a possibility. Recurrent low grade fevers last night. Hospitalists ordered CT T & L Spine. Patient with copious serous drainage (Non-sanguinous) without heat, erythema, odor, purulence, or tenderness. Dr. Luque saw the patient this morning and treated the upper incision drainage site with Betadine and stapling it shut. No antibiotics ordered. Telfa Dressing to change prn due to any further drainage. Source is likely atelectasis as Blood Culture X2 negative at 24 hours. Uc&s pending but likely will be negative. I will start patient on Albuterol Nebulizer Q8Hrs to help with keeping lungs open. Prior DuoNeb cleared fevers until late last night. 10. Hearing: Likely congested left middle ear. I started Debrox to ears and recheck later for Otitis Media. TIME SPENT: Chart Review, examination and documentation required greater than 25 minutes. Allergies Coded Allergies: No Known Drug Allergy (Verified Allergy, Unknown, 03/11/17) NO KNOWN per PATIENT Vital Signs Vital Signs Date Time Temp Pulse Resp B/P (MAP) Pulse Ox O2 Delivery O2 Flow Rate FiO2 04/16/17 08:27 77 150/70 04/16/17 08:00 Room Air 04/16/17 06:00 98.7 20 95 Laboratory Data CBC/BMP Laboratory Tests 04/16/17 06:20 Red Blood Count 2.85 L, Mean Corpuscular Volume 92.3, Mean Corpuscular Hemoglobin 30.9, Mean Corpuscular Hemoglobin Concent 33.5, Red Cell Distribution Width 16.0 H Microbiology Microbiology 04/15/17 Blood Culture - Preliminary, Resulted No growth after 24 hours . All specim... 04/15/17 Blood Culture - Preliminary, Resulted No growth after 24 hours . All specim... 04/15/17 Stool Occult Blood (DANIEL) - Final, Complete 04/15/17 Stool Occult Blood (DANIEL) - Final, Complete 04/15/17 Urine Culture - Final, Complete Current Medications Current Medications Current Medications Acetaminophen (Tylenol Tab) 650 mg Q6HP PRN PO PAIN OR FEVER Last administered on 04/16/17 08:28; Start 04/13/17 at 14:00; Stop 05/13/17 at 13:59 Albuterol Sulfate (Proventil Neb) 2.5 mg RQ8H NEB ; Start 04/16/17 at 08:00; Stop 05/16/17 at 07:59 Amlodipine Besylate (Norvasc) 5 mg DAILY PO Last administered on 04/16/17 08: 27; Start 04/15/17 at 09:00; Stop 05/15/17 at 08:59 Carbamide Perox/ Anhydrous Glycerin (Debrox) 5 drop BID AU Last administered on 04/16/17 08:28; Start 04/15/17 at 09:00; Stop 04/18/17 at 21:01 Enoxaparin Sodium (Lovenox) 50 mg Q12H SC Last administered on 04/15/17 21:36 ; Start 04/15/17 at 09:00; Stop 04/16/17 at 06:28; Status DC Enoxaparin Sodium (Lovenox) 50 mg Q12H SC Last administered on 04/16/17 08:28 ; Start 04/16/17 at 09:00; Stop 04/22/17 at 08:59 Lactulose (Cephulac) 30 ml Q8H PO ; Start 04/13/17 at 14:00; Stop 04/14/17 at 08 :20; Status DC Losartan Potassium (Cozaar) 12.5 mg DAILY PO ; Start 04/15/17 at 09:00; Stop at 09:57; Status DC Metoclopramide HCl (Reglan) 5 mg Q6H PO ; Start 04/13/17 at 12:00; Stop at 14:34; Status DC Metoclopramide HCl (Reglan) 5 mg Q6H PO Last administered on 04/16/17 06:21; Start 04/13/17 at 18:00; Stop 05/13/17 at 17:59 Morphine Sulfate (Msir) 7.5 mg Q4HP PRN PO PAIN(5-7); Start 04/13/17 at 14:15; Stop 04/13/17 at 14:26; Status DC Morphine Sulfate (Msir) 15 mg Q4HP PRN PO SEVERE PAIN (PS 8-10); Start at 14:15; Stop 04/13/17 at 14:26; Status DC Oxycodone HCl (Roxicodone, Oxyir) 5 mg Q4HP PRN PO PAIN 5-7 Last administered on 04/14/17 08:14; Start 04/13/17 at 14:30; Stop 04/20/17 at 14:29 Oxycodone HCl (Roxicodone, Oxyir) 10 mg Q4HP PRN PO PAIN 8-10; Start 04/13/17 at 14:30; Stop 04/20/17 at 14:29 Pantoprazole Sodium (Protonix) 40 mg DAILY PO Last administered on 04/16/17 08 :27; Start 04/14/17 at 09:00; Stop 05/14/17 at 08:59 IFEANYI RIOS MD Apr 16, 2017 10:33
--- NOTE | 2017-04-16 10:52 | REP ---
Soft tissue ultrasound paraspinal. History: Mass around laminectomy incision site. Findings: Sonographic scanning in the area of interest demonstrates a fairly large complex fluid collection in the dorsal lumbar soft tissues measuring 24.3 x 3.4 x 9.5 cm. Impression: Large dorsal soft tissue fluid collection consistent with hematoma, seroma or abscess. Signed by Alfredito Gregorio MD 04/16/2017 08:36 A
--- NOTE | 2017-04-16 10:52 | IPNPDOC ---
Date Seen The patient was seen on 04/16/17. Progress Note HPI: 72year old M undergoing Lumbar laminectomy with spinal fusion as per neurosurgery 04/05/17. Discharged from [facility] to the care of [facility]U, Dr Grissom 04/13/17. No acute medical complaints from Pt today. Pt states pain has been controlled. Pt is currently OOB to chair. Denies dyspnea, cough, CHATTERJEE. Pt denies any LE pain or swelling. Pt was noted to have mass around laminectomy site last evening, was evaluated by medicine service with imaging requested indicating fluid at surgical site, Dr Luque to see pt this AM. Lovenox was temporarily held. Drainage noted to be serous. Denies any fevers, chills, weakness, fatigue, Headache, Chest Pain, Shortness of breath, cough, palpitations, abdominal pain, N/V/D or changes in bowel or bladder habits. PMHx: 1. Pancytopenia. 2. Chronic kidney disease Stage IV. 3. History of urothelial carcinoma and status post right sided nephrectomy. 4. Orchitis status post right orchectomy. 5. Diffuse B cell lymphoma. 6. History of C. diff and MRSA. 7. Hypertension. 8. Anxiety/depression. 9. Gout. 10. Hypokalemia. PAST SURGICAL HISTORY: 1. Infusaport removal and replacement due to MRSA infection. 2. Orchiectomy on the right side. 3. L4-5 decompression. 4. Left knee medial meniscus repair. 5. Adhesive tenosynovitis repair. 6. Tibial tendon of the left foot. 7. Right nephrectomy and removal of the cuff of the bladder. 8. Cystoscope. 9. Status post transurethral resection of a bladder tumor. 10. Lumbar decompression/fusion. 04/05/17. Dr Luque. SOCHX: Resides in: lives with Marital Status: Tobacco use: quit 15 yrs ago ETOH: denies ROS: As noted in HPI, otherwise 11pt ROS of systems reviewed and unremarkable. Pt states eating and drinking well. Denies and abdominal discomfort. PE: GEN: 72yoM, appears stated age. Well-nourished, well developed. No acute distress. Alert and oriented x 3. Pleasant, interactive. HEENT: Normocephalic, atraumatic. Pupils are equal, round, and reactive to light. Extraocular movements are intact. No nystagmus appreciated. Sclera are nonicteric. Conjunctiva without injection. Nose midline. No facial asymmetry. Moist mucous membranes. Dentition fair. Pharynx pink and moist, no cobblestoning. Neck supple, trachea midline. No lymphadenopathy or thyromegaly appreciated. CHEST: Regular rate and rhythm, +S1, +S2. TLSO brace on currently. LUNGS: Clear to auscultation upper [place], exam limited, Pt with TLSO brace on. No wheezes, rales, or rhonchi. Breathing appears symmetric and easy. ABD: Round, soft, non-tender, non-distended. +Bowel sounds throughout. No rebound or guarding. No costovertebral angle tenderness. EXT: No lower extremity edema appreciated. There is no warmth, TTP, erythema, cording noted. SKIN: [place], dry, warm. No rashes. NEURO: Alert and oriented x 3. No focal deficits appreciated. UC 04/15/17. Neg. BC x 2 Neg. LE U/S 04/15/17 There is evidence of echogenic material in the left common femoral vein with limited flow and compressibility compatible with acute DVT. The remaining veins demonstrate normal echo-free lumen, compressibility and flow CXR 04/15/[address] Th spine 04/15/17 1. No discrete subcutaneous soft tissue abnormality. No subcutaneous abscess identified. 2. Destructive osseous lesions within the T5 and T6 vertebral bodies as described, suspicious for metastatic disease. 3. Moderate sized bilateral pleural effusions. CT Lumbar spine 04/15/17 1. Laminectomy changes from L2 through L5 are noted. Large amount of mixed attenuation fluid is seen at the surgical site, but no discrete loculated fluid collection is seen. Tiny pockets of gas are also noted. These are likely normal postsurgical findings. However, evaluation is slightly limited secondary to lack of intravenous contrast. If there is continued clinical concern for abscess , CT or MRI with contrast would be recommended. 2. Severe diffuse osteopenia with multiple levels of compression abnormalities as described. No acute fractures are identified. Abd U/S 04/15/17 Large dorsal soft tissue fluid collection consistent with hematoma, seroma or abscess. A&P: 72year old M undergoing Lumbar laminectomy with spinal fusion as per neurosurgery 04/05/17. Discharged from [facility] to the care of ARU, Dr Grissom 04/13/17. 1. Lumbar laminectomy with spinal fusion as per neurosurgery 04/05/17. Mgmt as per Neurosurgery. Dr Luque evaluated surgical site 04/16/17 AM related to fluid collection and serous drainage. Note pending. As per ARU attending, there was no warmth, erythema, odor, purulence, or tenderness. Dr. Luque treated the upper incision drainage site with Betadine and stapling. No antibiotics felt necessary. PT/OT as per Dr Grissom. Bowel care as per Dr Grissom. Pain control as per Dr Grissom. 2. Post operative ileus. Resolved. Eating and drinking well. 3. Anemia of chronic disease. Monitor Hgb, 8.8 this AM. S/P 4 units PRBC. Noted to have positive stool OB during [facility] admission. Stool OB x 2 04/15/17 neg. Outpt EGD/Colonoscopy recommended. 4. CKD4. SCr 1.39. Monitor. 5. H/O Multiple Myeloma/B cell Lymphoma. Seen previously by Dr Diaz 04/07/17. Plan for outpt f/u with oncology 6. H/O hyperparathyroidism/Vitamin D Deficiency. Restart supplements at d/c. 7. Depression. 8. HTN. Hold off on restarting ARB related to renal function. Add Norvasc 5 mg daily with hold parameters. Monitor BP, manual requested as there is a wide range of BP readings. 9. M Obesity. Complicates care. 10. H/O bladder Ca s/p partial cystectomy/nephrectomy. Outpt F/U with Urology and oncology. 11. LLE DVT. Lovenox 50mg BID as per attending. Dr Luque aware, re evaluated surgical site this AM. Note pending. As per ARU attending Dr Luque remains agreeable to LMWH. Stool OB x 2 neg. Monitor for any signs of bleeding. Monitor daily CBC. Pt is OOB and active this AM with no dyspnea, no cough, no fever, no tachycardia and O2 sats stable. Discussed as well with Dr. Hernández. 12. Fever. Tmax past 24 hrs 100.6. CRP pending. Discussed with Dr Hernández, consult Dr Diaz, infectious disease for any further recommendations. VS, I&O, 24H, Fishbone Vital Signs/I&O Vital Signs Date Time Temp Pulse Resp B/P (MAP) Pulse Ox O2 Delivery O2 Flow Rate FiO2 04/16/17 08:27 77 150/70 04/16/17 08:00 Room Air 04/16/17 06:00 98.7 20 95 I&O- Last 24 Hours up to 6 AM 04/16/17 06:00 Intake Total 1200 ml Output Total 1350 ml Balance -150 ml Laboratory Data CBC/BMP Laboratory Tests 04/16/17 06:20 Red Blood Count 2.85 L, Mean Corpuscular Volume 92.3, Mean Corpuscular Hemoglobin 30.9, Mean Corpuscular Hemoglobin Concent 33.5, Red Cell Distribution Width 16.0 H Microbiology Microbiology 04/15/17 Blood Culture - Preliminary, Resulted No growth after 24 hours . All specim... 04/15/17 Blood Culture - Preliminary, Resulted No growth after 24 hours . All specim... 04/15/17 Stool Occult Blood (DANIEL) - Final, Complete 04/15/17 Stool Occult Blood (DANIEL) - Final, Complete 04/15/17 Urine Culture - Final, Complete Leonila Mcclelland Apr 16, 2017 10:52
[2017-04-16 14:00] VITALS: BP 130/70
[2017-04-16] MEDS ORDERED: LOVE0.4I2 SC (15:54)
[2017-04-16] MEDS ORDERED: METO5TAB2 PO (15:54)
[2017-04-16] MEDS ORDERED: PANT40TA2 PO (15:54)
[2017-04-16] MEDS ORDERED: SERT50TA PO (15:54)
[2017-04-16] MEDS ORDERED: AMLO5TAB2 PO (15:54)
[2017-04-16 20:00] VITALS: BP 130/70
[2017-04-17] MEDS: ACETAMINOPHEN TAB 650MG DOSE (2X325MG) PO PRN (03:19)
[2017-04-17 06:00] VITALS: BP 148/74
[2017-04-17] MEDS: METOCLOPRAMIDE 5 MG TAB PO SCH ×4 (06:14→23:54)
[2017-04-17 07:18] LABS: MEAN CORPUSCULAR HEMOGLOBIN 28.5 pg (27.0-33.0); MEAN CORPUSCULAR HGB CONC 30.7 g/dl (32.0-36.5); MEAN CORPUSCULAR VOLUME 92.6 fl (80.0-96.0); WHITE BLOOD COUNT 4.8 K/mm3 (4.0-10.0)
[2017-04-17] MEDS: ALBUTEROL SULFATE 2.5 MG/0.5 ML INH NEB SOLN NEB SCH ×2 (07:33→15:21)
[2017-04-17] MEDS: CARBAMIDE PEROXIDE 6.5% OTIC SOLN 15ML AU SCH ×2 (08:37→20:56)
[2017-04-17] MEDS: ENOXAPARIN 60 MG/0.6 ML SYR (J1650) SC SCH ×2 (08:38→20:56)
[2017-04-17] MEDS: PANTOPRAZOLE 40MG TAB (PROTONIX) PO SCH (08:38)
[2017-04-17] MEDS: amLODIPine 5 MG TAB PO SCH (08:40)
[2017-04-17 09:44] LABS: ALBUMIN 2.2 GM/DL (3.2-5.2); ALBUMIN/GLOBULIN RATIO 0.51 (1.00-1.93); BILIRUBIN,TOTAL 0.3 MG/DL (0.2-1.0); CALCIUM LEVEL 7.8 MG/DL (8.8-10.2); CREATININE FOR GFR 1.31 MG/DL (0.70-1.30); GLOMERULAR FILTRATION RATE 57.4 (>42); POTASSIUM SERUM 4.2 MEQ/L (3.5-5.1); TOTAL PROTEIN 6.5 GM/DL (6.4-8.2)
--- NOTE | 2017-04-17 13:29 | CR ---
DATE OF CONSULTATION: 04/16/2017 Asked to consult by Leonila Mcclelland for evaluation of fever in a patient postoperative lumbar surgery for compression fracture and cauda equina status post L2-S1 laminectomy and decompression done on 04/05/2017. The patient is a 72-year-old gentleman with a history of multiple myeloma and Monoclonal gammopathy of undetermined significance (MGUS) who had a diagnosis for the past 6 years and recently was diagnosed also with lymphoma status post R-CHOP chemotherapy and radiation to his thoracic spine. The patient developed a compression fracture and had surgery done by Dr. Luque on 04/05/2017. He was transferred to the rehab unit on 04/13/2017 and was doing fairly well. He was improving, improved in his strength as well as his back pain. He developed a fever of 101.8 on 04/14/2017 and last night he had a low grade fever as well. The patient has a mild runny nose and a cough as well. After the drains were removed from his lumbar surgery, there was also noted an increase in fluid collection under the large surgical incision but the patient stated that his back pain is doing fairly well and is improving. The drainage was mostly described as serous. He denied any nausea, vomiting or diarrhea. No abdominal pain. He does not have a history of emphysema and he never had an inhaler or nebulizer but for the past couple days, he has been having increased cough and wheezing. Also part of the workup of his fever, he had an imaging study of his legs to rule out a deep venous thrombosis (DVT) and was found to have a left femoral vein DVT and was started on Lovenox. Abdominal ultrasound done at 8 o'clock showed a large dorsal soft tissue fluid collection consistent with hematoma, seroma or abscess and followup CT of the thoracolumbar spine was done and that showed no discrete soft tissue abnormality, there was destructive osseous lesion at T5-6 which had been radiated in the past year. I have reviewed that study with Dr. Lovett who felt it was a subcutaneous collection and could be a seroma. LABS: White count is 4.7, hemoglobin 8.8, hematocrit 26.3, platelets 122. No increase in white count. Sodium 142, potassium 3.5, chloride 110, bicarb 23, BUN 21, creatinine 1.4, glucose 121, calcium 7.9, AST 16, ALT 16, alk phos 64, CRP 8.7, total protein 6.7, albumin 2.1. Blood cultures were drawn on 04/15/2017 at 1:00 a.m., are no growth after 24 hours. Urine culture is negative. Stool hemoccult times three are negative. Past medical history: Significant for: 1. Recent history of Clostridium difficile colitis and Methicillin-resistant staphylococcus aureus (MRSA) infection of his Jyoltk-J-Wbjj that was treated in [place]. 2. Gout. 3. Mild pancytopenia. 4. Multiple myeloma. 5. Monoclonal gammopathy of undetermined significance. 6. 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 This was recently diagnosed last year. PAST SURGICAL HISTORY: 1. Pgifel-Y-Odah placement. 2. Orchiectomy on the right side. 3. Left knee medial meniscus repair. 4. Tenosynovitis repair. 5. Right nephrectomy and partial cystectomy on the right side done by Dr. Hylton in 2001 related to transitional cell -BOLIVIAN. 6. Transurethral resection of the prostate (TURP) and cystoscopy done in 2001. Surgery done by Dr. Luque on 04/05 shows a laminectomy, L2-S1 facetectomy and repair of CSF leak. REVIEW OF SYSTEMS: The patient denies any nausea, vomiting or diarrhea. He has a new cough and mild runny nose, mild shortness of breath. He denies any nausea, vomiting, diarrhea or abdominal pain. His back pain has improved since the surgery drastically. He feels much better and is anxious to get home on Wednesday. He had a fever for the past couple of days, although it is trending down. On physical exam, temperature is 98.7, pulse 78, respirations 20, blood pressure 130/70, O2 sat 97% on room air. Heart: Normal S1, S2 with a systolic ejection murmur 2/6 best heard at the right upper sternal border. Lungs: Few expiratory rhonchi bilaterally and a few wheezes. Abdomen: Soft, nontender. No hepatosplenomegaly. Healed scar of nephrectomy on the left side. Back: Large surgical scar of lumbar laminectomy with a soft subcutaneous collection with minimal serous drainage. No surrounding erythema. No tenderness. No cellulitis. No purulence. No wound dehiscence. Extremities: Mild edema with no calf tenderness. Neurologic examination: The patient moves all extremities pretty strong. He is in a brace and therefore neurologic exam of lower extremities was not done but he is able to get out of bed to a chair on his own with the help of walker. IMPRESSION: This is a 72-year-old gentleman status post extensive back surgery with laminectomy, facetectomy and repair of CSF leak who has a subcutaneous collection most likely consistent with a seroma as there is no significant pain, drainage is just serous. The patient does not have a headache to suggest a CSF leak. The wound looks great. He had a fever for the past couple nights with a cough, possibly related to atelectasis versus a viral illness. Chest x-ray was portable of poor quality but did not show any infiltrate. The patient is clinically improving. His fever has trended down. Today he is feeling good. He has not been started on antibiotics. This fever could be related to a viral illness causing the cough and runny nose versus the DVT of his leg. Seroma/hematoma would cause a low grade fever as well. Although clinically this looks more like a seroma. The patient has not been on antibiotic since surgery on 04/05/2017 where he received two doses of cefazolin 2 grams over the first 24 hours. MEDICATIONS: - Lovenox 50 mg subcu every 12 hours - amlodipine - Norvasc 5 mg by mouth daily - Debrox 5 both ears twice daily - Protonix 40 mg daily - Reglan 5 mg by mouth daily at bedtime - oxycodone 10 mg by mouth every 4 hours as needed ALLERGIES: No known drug allergies. PLAN: Continue off antibiotic. If patient has persistent fever, I would suggest obtaining an aspiration of this collection to rule out infectious process. In the meantime, would encourage incentive spirometer, ambulation and continued monitoring. Repeat CRP in the morning. CBC and continue monitoring. Thank you for consultation.
[2017-04-17 14:00] VITALS: BP 136/64
[2017-04-17] MEDS: oxyCODONE 5MG TAB PO PRN (17:59)
[2017-04-17 19:58] VITALS: BP 167/77
[2017-04-18] MEDS: METOCLOPRAMIDE 5 MG TAB PO SCH ×4 (05:12→23:12)
[2017-04-18 06:00] VITALS: BP 162/74
[2017-04-18] MEDS: oxyCODONE 5MG TAB PO PRN ×2 (06:45→18:57)
[2017-04-18 07:07] LABS: MEAN CORPUSCULAR HEMOGLOBIN 30.3 pg (27.0-33.0); MEAN CORPUSCULAR HGB CONC 32.4 g/dl (32.0-36.5); MEAN CORPUSCULAR VOLUME 93.4 fl (80.0-96.0); RED CELL DISTRIBUTION WIDTH 16.2 % (11.5-14.5); WHITE BLOOD COUNT 6.5 K/mm3 (4.0-10.0)
[2017-04-18] MEDS: ALBUTEROL SULFATE 2.5 MG/0.5 ML INH NEB SOLN NEB SCH ×3 (07:11→15:59)
[2017-04-18 07:25] LABS: ALBUMIN 2.2 GM/DL (3.2-5.2); ALBUMIN/GLOBULIN RATIO 0.5 (1.00-1.93); BILIRUBIN,TOTAL 0.4 MG/DL (0.2-1.0); CALCIUM LEVEL 7.5 MG/DL (8.8-10.2); CREATININE FOR GFR 1.39 MG/DL (0.70-1.30); GLOMERULAR FILTRATION RATE 53.6 (>42); TOTAL PROTEIN 6.6 GM/DL (6.4-8.2)
[2017-04-18] MEDS: PANTOPRAZOLE 40MG TAB (PROTONIX) PO SCH (08:06)
[2017-04-18] MEDS: amLODIPine 5 MG TAB PO SCH (08:06)
[2017-04-18] MEDS: CARBAMIDE PEROXIDE 6.5% OTIC SOLN 15ML AU SCH ×2 (08:07→20:30)
[2017-04-18] MEDS: ENOXAPARIN 60 MG/0.6 ML SYR (J1650) SC SCH ×2 (08:07→20:31)
[2017-04-18 14:13] VITALS: BP 131/78
[2017-04-18] MEDS: ACETAMINOPHEN TAB 650MG DOSE (2X325MG) PO PRN ×2 (14:15→19:35)
--- NOTE | 2017-04-18 15:36 | IPNPDOC ---
Date Seen The patient was seen on 04/18/17. Progress Note Hospitalist Progress Note Subjective: Called by nursing for a fever to 101.3. The patient denies any complaints, states he is feeling well and is excited to go home tomorrow. Specifically, he denies any diarrhea, shortness of breath, or dysuria. Objective: Physical Exam: Vitals: Vital Sign - Last 24 Hours 04/17/17 04/17/17 04/17/17 04/18/17 17:59 19:58 20:00 06:00 Temp 99.8 99.9 Pulse 79 79 Resp 18 18 18 B/P (MAP) 167/77 (107) 162/74 (103) Pulse Ox 94 94 O2 Delivery Room Air Room Air Room Air 04/18/17 04/18/17 04/18/17 04/18/17 06:45 07:28 08:06 08:43 Pulse 79 Resp 18 18 B/P (MAP) 162/74 O2 Delivery Room Air 04/18/17 14:13 Temp 101.3 Pulse 90 Resp 18 B/P (MAP) 131/78 (95) Pulse Ox 93 O2 Delivery Room Air General: Awake, alert, no acute distress HEENT: Normocephalic, atraumatic, extraocular movements intact CV: Regular rate and rhythm Lungs: Clear to auscultation bilaterally Abd: Soft, nontender, nondistended, normal bowel sounds Extremities: No edema Skin: The incision site appears to be healing well. There is no obvious sign of infection. There are a couple deonna at the top of the incision and there is an area of obvious fluctuance. The patient does not have any tenderness to palpation in this area and there is no drainage or erythema. Neuro: Alert and oriented 3 Psych: Normal mood and affect Labs and Imaging: Laboratory Tests 04/17/17 06:36 Red Blood Count 2.97 L, Mean Corpuscular Volume 92.6, Mean Corpuscular Hemoglobin 28.5, Mean Corpuscular Hemoglobin Concent 30.7 L, Red Cell Distribution Width 16.0 H, Calcium Level 7.8 L, Aspartate Amino Transf (AST/SGOT ) 15, Alanine Aminotransferase (ALT/SGPT) 19, Alkaline Phosphatase 67, Total Bilirubin 0.3, Total Protein 6.5, Albumin 2.2 L 04/18/17 06:38 Red Blood Count 3.07 L, Mean Corpuscular Volume 93.4, Mean Corpuscular Hemoglobin 30.3, Mean Corpuscular Hemoglobin Concent 32.4, Red Cell Distribution Width 16.2 H, Calcium Level 7.5 L, Aspartate Amino Transf (AST/SGOT ) 14 L, Alanine Aminotransferase (ALT/SGPT) 18, Alkaline Phosphatase 66, Total Bilirubin 0.4, Total Protein 6.6, Albumin 2.2 L Microbiology 04/15/17 Blood Culture - Preliminary, Resulted No Growth after 72 hours. All specime... 04/15/17 Blood Culture - Preliminary, Resulted No Growth after 72 hours. All specime... 04/16/17 Stool Occult Blood (DANIEL) - Final, Complete 04/15/17 Stool Occult Blood (DANIEL) - Final, Complete 04/15/17 Stool Occult Blood (DANIEL) - Final, Complete 04/15/17 Urine Culture - Final, Complete, No growth Assessment and Plan: 72-year-old male with history of pancytopenia, multiple myeloma and MGUS, chronic kidney disease stage IV, history of urothelial carcinoma status post right-sided nephrectomy, orchitis status post right orchiectomy, diffuse B-cell lymphoma, history of C. difficile and MRSA, hypertension, anxiety and depression , gout who is currently in the acute rehabilitation unit after undergoing lumbar laminectomy with spinal fusion by Dr. Luque of neurosurgery on 04/05. He developed a fever on 04/14/2017, and workup revealed a left femoral DVT. He has since been started on Lovenox. He continued to have some mild fevers , and infectious disease was consulted and evaluated him on 04/16/2017. The only other potentially concerning finding was a subcutaneous collection in the area of surgical repair that was thought to most likely be a seroma. At the time , the patient had been improving and had had downtrending fevers without antibiotics, so Dr. Diaz recommended leaving the patient off antibiotics, as a seroma or hematoma could easily cause a low-grade fever, but she did recommend that if the patient had a persistent fever, obtaining an aspiration of the fluid collection to rule out infectious process. The patient has been afebrile for over 48 hours, but I received a phone call today from the nursing staff that he has a fever to 101.3. 1. Fever: The patient is clinically well-appearing, and he tells me that he does not have any complaints and feels well. Specifically, he denies any shortness of breath, dysuria, diarrhea. He does endorse a little bit of a cough but states he has been coughing for a while. Blood cultures, urine culture, and chest x-ray completed on 04/15 are negative. We will reevaluate with blood cultures, UA and urine cultures, chest x-ray. White count today is within normal limits, and a CRP completed yesterday as downtrending from before. I also spoke with Dr. Luque regarding potentially reevaluating the area that is thought to be a seroma. At this time, he has requested MRI imaging at that area, which will help him determine whether or not aspirating the area would be of benefit to the patient. Since the patient is clinically well-appearing, and there is no obvious source, I will defer any antibiotics at this time. 2. DVT: Continue treatment dose Lovenox. 3. Hypertension: Continue Norvasc. DVT prophylaxis: Treatment dose Lovenox Dispo: pending workup of new fever VS, I&O, 24H[facility] Vital Signs/I&O Vital Signs Date Time Temp Pulse Resp B/P (MAP) Pulse Ox O2 Delivery O2 Flow Rate FiO2 04/18/17 14:13 101.3 90 18 131/78 (95) 93 Room Air I&O- Last 24 Hours up to 6 AM 04/18/17 05:59 Intake Total 1500 ml Output Total 1250 ml Balance 250 ml Laboratory Data 24H LABS Laboratory Tests 2 04/18/17 06:38: Anion Gap 10, Glomerular Filtration Rate 53.6, Blood Urea Nitrogen 17, Creatinine 1.39H, Sodium Level 140, Potassium Level 4.0, Chloride Level 106, Carbon Dioxide Level 24, Calcium Level 7.5L, Aspartate Amino Transf (AST/SGOT) 14L, Alanine Aminotransferase (ALT/SGPT) 18, Alkaline Phosphatase 66, Total Bilirubin 0.4, Total Protein 6.6, Albumin 2.2L, Albumin/Globulin Ratio 0.50L CBC/BMP Laboratory Tests 04/18/17 06:38 Red Blood Count 3.07 L, Mean Corpuscular Volume 93.4, Mean Corpuscular Hemoglobin 30.3, Mean Corpuscular Hemoglobin Concent 32.4, Red Cell Distribution Width 16.2 H, Calcium Level 7.5 L, Aspartate Amino Transf (AST/SGOT ) 14 L, Alanine Aminotransferase (ALT/SGPT) 18, Alkaline Phosphatase 66, Total Bilirubin 0.4, Total Protein 6.6, Albumin 2.2 L Microbiology Microbiology 04/15/17 Blood Culture - Preliminary, Resulted No Growth after 72 hours. All specime... 04/15/17 Blood Culture - Preliminary, Resulted No Growth after 72 hours. All specime... 04/16/17 Stool Occult Blood (DANIEL) - Final, Complete 04/15/17 Stool Occult Blood (DANIEL) - Final, Complete 04/15/17 Stool Occult Blood (DANIEL) - Final, Complete 04/15/17 Urine Culture - Final, Complete SHAUN VALENTIN Apr 18, 2017 15:36
--- NOTE | 2017-04-18 16:37 | REP ---
Chest one-view HISTORY: Fever Comparison: 04/15/2017 The lungs are clear. The heart is normal in size. The pulmonary vasculature is normal in appearance. An [id number] catheter is present. Impression: No acute disease. Signed by Doc Lovett MD 04/18/2017 04:29 P
--- NOTE | 2017-04-18 19:50 | REPUSA ---
MRI of the lumbar spine with contrast Clinical statement: Post-surgical fluid collection status post laminectomy. Technique: Multiecho multiplanar MRI images of the lumbar spine were obtained after ministration of 1 0 mL of Prohance intravenous gadolinium contrast. Comparison: CT, 04/15/2017. Findings: The lumbar vertebral bodies are in satisfactory position and alignment. No fractures or dis locations are demonstrated. There is diffuse T1 hypointense, T2 hyperintense bone marrow signal withi n the L2 vertebral body. There is loss of vertebral body height at L5. There is a large loculated flu id collection at the posterior laminectomy site with peripheral enhancement, measuring 3.6 x 7.9 x 12 .4 cm. This was not well appreciated on the prior CT study. This fluid collection appears to cause mo derately severe mass effect on the central canal from L2 through S1, resulting in central canal narro wing. Additionally, there is a subcutaneous loculated fluid collection, measuring 2.3 x 9.5 x 20.1 cm . The filum terminale and conus medullaris appear unremarkable. Impression: 1. Large loculated, peripherally enhancing fluid collection posterior to the laminectomy site from L2 through S1, most suspicious for an abscess. 2. The large abscess is causing moderate to severe mass effect on the central canal from L2 through S 1, causing moderately severe central canal narrowing. 3. There is also a well circumscribed loculated fluid collection in the subcutaneous tissues, which i s most consistent with a large hematoma. A developing abscess cannot completely be excluded within th is subcutaneous collection however. 4. Diffuse abnormal bone marrow signal within the L2 vertebral body, consistent with metastatic disea se. 5. Chronic compression fracture of L5. Note: Attempts were made to contact Dr. Crane at the number provided, but no one answered at this l ocation. I will continue to have my multicut line operator attempt to call this report in to Dr. Crane.
[2017-04-18 20:00] VITALS: BP 131/67
[2017-04-19] MEDS: ACETAMINOPHEN TAB 650MG DOSE (2X325MG) PO PRN ×2 (01:48→08:30)
[2017-04-19] MEDS: METOCLOPRAMIDE 5 MG TAB PO SCH ×2 (05:47→11:31)
[2017-04-19 06:00] VITALS: BP 135/78
[2017-04-19 06:54] LABS: MEAN CORPUSCULAR HEMOGLOBIN 30.6 pg (27.0-33.0); MEAN CORPUSCULAR HGB CONC 33.3 g/dl (32.0-36.5); RED CELL DISTRIBUTION WIDTH 15.7 % (11.5-14.5); WHITE BLOOD COUNT 7.1 K/mm3 (4.0-10.0)
[2017-04-19 07:08] LABS: ALBUMIN 2.3 GM/DL (3.2-5.2); ALBUMIN/GLOBULIN RATIO 0.46 (1.00-1.93); BILIRUBIN,TOTAL 0.6 MG/DL (0.2-1.0); CALCIUM LEVEL 8.6 MG/DL (8.8-10.2); CREATININE FOR GFR 1.59 MG/DL (0.70-1.30); GLOMERULAR FILTRATION RATE 45.9 (>42); POTASSIUM SERUM 3.6 MEQ/L (3.5-5.1); TOTAL PROTEIN 7.3 GM/DL (6.4-8.2)
[2017-04-19] MEDS: ALBUTEROL SULFATE 2.5 MG/0.5 ML INH NEB SOLN NEB SCH ×2 (07:08)
[2017-04-19] MEDS: PANTOPRAZOLE 40MG TAB (PROTONIX) PO SCH (08:28)
[2017-04-19 08:30] VITALS: BP 140/68
[2017-04-19] MEDS: amLODIPine 5 MG TAB PO SCH (08:30)
[2017-04-19] MEDS ORDERED: OPTI4PAD XX (09:34)
[2017-04-19] MEDS: ENOXAPARIN 60 MG/0.6 ML SYR (J1650) SC SCH (10:20)
--- NOTE | 2017-04-19 17:41 | PMRDS ---
DATE OF ADMISSION: 04/13/2017 DATE OF DISCHARGE: 04/19/2017 DISCHARGE DIAGNOSIS: Rehabilitation of cauda equina compression, secondary to multiple lumbar compression fractures, secondary to multiple myeloma weakening the bone, treated with surgical decompression, lumbar laminectomy from L2-S1 and bone overlay fusion on 04/05/2017. SECONDARY DIAGNOSES: 1. Left femoral vein deep vein thrombosis (DVT). 2. Moderate postoperative anemia 3. Chronic kidney disease. 4. History of hyperparathyroidism. 5. History of vitamin D deficiency. 6. History of depression. 7. Hypertension. 8. Morbid obesity with obstructive sleep apnea. 9. History of transition cell carcinoma of the bladder, status post partial cystectomy and right nephrectomy. 10. Pancytopenia, related to multiple myeloma. 11. Status post orchiectomy. 12. Prior history of Clostridium difficile infection that has been cleared. 13. History of methicillin-resistant Staphylococcus aureus (MRSA) colonization that has been cleared. 14. Gout. 15. History of prior hypokalemia. 16. Status post left knee medial meniscus tear. 17. History of adhesive tenosynovitis, repaired. 18. Tibial tendon repair on the left. 19. Transurethral resection of bladder tumor. 20. Status post left knee medial meniscus repair. HISTORY: The patient is a left-handed 72-year-old white male who was having progressive problems with pain and weakness involving the lower extremity and low back and was found to have multiple compression fractures related to his prior multiple myeloma, for which he has undergone chemotherapy and currently still has a port in his left chest. The patient elected surgical decompression. However, due to the nature of the bone weakness because of the multiple myeloma, the patient was unable to be instrumented to have fusion that way and so had bone overlay fusion performed and requires being in the thoracolumbosacral orthosis (TLSO) to maintain good posture when up. The patient required education in managing his spinal cord condition as well as neuromuscular facilitation of bilateral lower extremity motor as well as mobility and activities of daily living (ADLs) training and treatment to relieve spinal cord related constipation. PHYSICAL EXAMINATION: The patient is an average height, 212.7 kg, elderly white male who looks slightly younger than stated age of 72 and in no acute distress, sitting up, wearing his thoracolumbosacral orthosis (TLSO). VITAL SIGNS: On his day of discharge show a temperature of 99.4, blood pressure 140/68, pulse 72, respirations 18, and pulse oximetry 96%. Yesterday, however, the patient did have a maximum temperature (T-max) of 102.5 and another temperature rating in the 101 range, though most of his recent temperatures have tended to be in the 99 degree Fahrenheit ranges to 98 degree Fahrenheit ranges. HEENT: Normocephalic, atraumatic with townsend hair and several day mckeon stubble. Pupils are equal, round, and reactive to light and accommodation, 5 mm in diameter, sole down to 4, and extraocular motions are intact and vision is conjugate. The patient uses glasses for visual correction. Hearing is good. NECK: Supple. Thyroid is normal size and position and texture. LUNGS: Clear in all [place] to auscultation. CORONARY: Showed a regular rate and rhythm with 3/6 holosystolic murmur and 2/4 bilateral radial pulses. ABDOMEN: Obese, nontender with normal bowel sounds. EXTREMITIES: Functional range of motion. The patient is nontender over the left femoral vein without any hear, erythema or tenderness present and has negative popliteal cords palpable and negative Ani's signs in bilateral lower extremities. NEUROLOGIC: The patient is alert and oriented times four. Speech is clear, coherent, and appropriate. Affect is pleasant and cooperative with slight anxiousness, principally about whether he gets to go home today or not which he definitely wishes to. Overall, he is pleasant, cooperative and in good spirits though. MOTOR EXAMINATION: Shows 5/5 bilateral upper extremity and 4-5 out of 5 bilateral lower extremity. SKIN: His incision is nontender. It is closed with no deonna remaining. There is no heat, erythema, tenderness, drainage, odor, but there is an approximately hockey puck-sized area of softness in the cephalad two-thirds midline under the incision. PROCEDURES PERFORMED: The patient has had Doppler ultrasound demonstrating on 04/15/2017 the left femoral vein deep vein thrombosis (DVT). Also chest x-ray, abdominal ultrasound, thoracic spine CT, lumbar spine CT showing the fluid filled pocket described in physical examination below the incision line. Chest x-ray which was negative which was performed on 04/18/2017 versus those other tests on 04/15/2017 and lumbar spine MRI on 04/18/2017 with gadolinium with the impression of large loculated peripherally enhancing fluid collection posterior to the laminectomy site from L2-S1 which the radiologist feels is most suspicious for an abscess. The large abscess is causing moderate to severe mass effect on the central canal from L2-S1 causing moderate severe central canal narrowing. There is also a well-described loculated fluid collection in the subcutaneous tissues which is most consistent with a large hematoma. A developing abscess cannot completely be excluded with subcutaneous collection. Diffuse abnormal bone marrow signal within L2 vertebral body consistent with metastatic disease and chronic compression fracture of L5. Blood cultures done on 04/15/2017 times two were negative. Urine culture was also negative. Stool occult blood times two on 04/15/2017, one on 04/16/2017 were all negative. Urine culture of 04/18/2017 was negative. There are two blood cultures obtained on 04/18/2017 pending. LABORATORY DATA: Shows white blood cell count have ranged from 5.2 to 7.1 during the course of the admission. Hemoglobin and hematocrit on admission was 9.2 and 27.8, and today are 9.3 and 27.9. Platelet count has ranged from 122,000 on 04/16/2017 with initial 125,000 on 04/11/2017 to a high today of 139,000. Electrolytes did show elevation initially of 110 on chloride which has resolved and otherwise been normal. BUN initially 21 has corrected to 18, creatinine has ranged from 1.31 to 1.59 during the course of the admission. Calcium is reduced related to albumin which is lulling on discharge at 2.3. C-reactive protein is elevated at 18.10. HOSPITAL COURSE: The patient admitted to the acute rehabilitation unit on 04/13/2017 and evaluated by physical and occupational therapies along with rehabilitation nursing, physiatry and medicine it security consultant, and started on a program of acute intensive neurorehabilitation of cauda equina syndrome. The patient developed some episodic low-grade fevers, initially clearing with activity, incentive spirometry, and nebulizer treatments. However, through the last weekend, the patient came to a higher temperature of 102.5 and the evaluation noted above was performed. However, throughout the course of the patient's admission, he has not looked toxic, has not felt notably ill or had any pain or tenderness related to the incision site, though he did have some initial drainage of serous material without odor, and no signs of purulence and no inflammation along the incision line which Dr. Luque was kind enough to come assess, and after treating it the area with Betadine put three additional deonna which sealed the drainage. Dr. Luque has continued to follow the patient throughout the weekend and has expressed feeling that the patient has a cerebrospinal fluid (CSF) leak into his seroma from his postoperative hematoma. Dr. Diaz has also been involved in assessing the patient and has expressed the potential of upper respiratory infection versus a seroma as other possibilities of the fever versus the possible abscess. The patient, having discussed the findings with him and his , still elects discharge to home having reached his rehabilitation goals. During the course of physical and occupational therapy, the patient with an initial speedometer mechanic testing of +4/5 strength, has transitioned eating from standby assist to independent, grooming from standby assist to modified independent, dressing from minimal assist for upper and lower body to standby assist, transfers from minimal assist to modified independent, bed mobility from standby assist to modified independent, toileting from minimal assist to standby touch assist, bathing from moderate assist to contact guard assist, and his balance sitting has gone from good static and dynamic to good and poor standing static dynamic from fair to fair plus. His ambulation has gone from 145 feet with contact guard assistance to 160 feet times two with standby assist using a front-wheeled walker and the patient able to do four stairs. COMPLICATIONS: Deep vein thrombosis (DVT), left femoral vein and recurrent fever with seroma versus abscess in the lumbar paraspinal region. DISCHARGE PLAN: The patient is discharged to home today with his who is an experienced and now retired nurse and will be with him throughout the day. He is to see his primary care within two weeks and he will see Dr. Luque in one week. The patient to continue with Optifoam dressing over the incision. They have a prescription to change it if needed but if the Optifoam becomes saturated, the patient and his have been instructed to see Dr. Luque that day. If the patient becomes notably ill with nausea, malaise, lethargy, fever or if they become worried about the incision, they are to go to the emergency department. DISCHARGE MEDICATIONS: - amlodipine 5 mg daily - Lovenox 50 mg subcutaneous every 12 hours for 14 days for deep vein thrombosis (DVT) treatment and further assessment by the patient's primary care as to continuation - Reglan 5 mg every six hours - Tylenol 650 mg every four hours as needed for pain or fever - pantoprazole 40 mg daily for stomach protection - sertraline 50 mg daily for mood The patient previously on lactulose and Zofran which have been stopped. The patient and his have been taught on Lovenox injection techniques and his has been reviewed on his dressing and its application. TIME SPENT ON DISCHARGE: Greater than 35 minutes.
== END 2017-04-19 13:00 | disposition home health service (06) | DRG 74 ==
LOC: M PM&R 14:10
PROVIDERS: ADMIT Physical Medicine & Rehabilitation; ATTEND Physical Medicine & Rehabilitation
DX: G83.4 Cauda equina syndrome (principal); C83.39 Diffuse large B-cell lymphoma, extranodal and solid organ sites; I82.412 Acute embolism and thrombosis of left femoral vein; N18.4 Chronic kidney disease, stage 4 (severe); D61.818 Other pancytopenia; M96.842 Postprocedural seroma of a musculoskeletal structure following a musculoskeletal system procedure; G82.22 Paraplegia, incomplete; E55.9 Vitamin D deficiency, unspecified; E21.3 Hyperparathyroidism, unspecified; F32.9 Major depressive disorder, single episode, unspecified; M10.9 Gout, unspecified; I12.9 Hypertensive chronic kidney disease with stage 1 through stage 4 chronic kidney disease, or unspecified chronic kidney disease; D47.2 Monoclonal gammopathy; D47.3 Essential (hemorrhagic) thrombocythemia; R53.83 Other fatigue; E66.01 Morbid (severe) obesity due to excess calories; G47.33 Obstructive sleep apnea (adult) (pediatric); Z85.51 Personal history of malignant neoplasm of bladder; Z99.2 Dependence on renal dialysis; Z86.14 Personal history of Methicillin resistant Staphylococcus aureus infection; Z87.891 Personal history of nicotine dependence; Z79.891 Long term (current) use of opiate analgesic; Z79.899 Other long term (current) drug therapy; Z68.33 Body mass index [BMI] 33.0-33.9, adult; Z92.3 Personal history of irradiation

== ENCOUNTER → 2017-04-20 | Outpatient (REF) | payer MEDICARE, OTHER ==
[~2017-04-20] MED LIST changes: +LOVE0.4I2 SC; +METO5TAB2 PO; -METOCLOPRAMIDE 5 MG TAB PO SCH; +OPTI4PAD XX
[2017-04-20 16:19] LABS: MEAN CORPUSCULAR HEMOGLOBIN 30.4 pg (27.0-33.0); MEAN CORPUSCULAR HGB CONC 33.2 g/dl (32.0-36.5); MEAN CORPUSCULAR VOLUME 91.8 fl (80.0-96.0); RED CELL DISTRIBUTION WIDTH 15.7 % (11.5-14.5); WHITE BLOOD COUNT 6.2 K/mm3 (4.0-10.0)
[2017-04-20 16:45] LABS: ALBUMIN 2.1 GM/DL (3.2-5.2); ALBUMIN/GLOBULIN RATIO 0.49 (1.00-1.93); BILIRUBIN,TOTAL 0.3 MG/DL (0.2-1.0); CALCIUM LEVEL 7.8 MG/DL (8.8-10.2); CREATININE FOR GFR 1.46 MG/DL (0.70-1.30); GLOMERULAR FILTRATION RATE 50.7 (>42); POTASSIUM SERUM 3.9 MEQ/L (3.5-5.1); TOTAL PROTEIN 6.4 GM/DL (6.4-8.2)
== END ==
LOC: M LAB REF 15:50
PROVIDERS: ATTEND Physical Medicine & Rehabilitation
DX: G83.4 Cauda equina syndrome (principal); D64.9 Anemia, unspecified; N18.9 Chronic kidney disease, unspecified

== ENCOUNTER → 2017-04-23 | Outpatient (REF) | payer MEDICARE, OTHER ==
[2017-04-23 09:54] LABS: MEAN CORPUSCULAR HEMOGLOBIN 30.9 pg (27.0-33.0); MEAN CORPUSCULAR HGB CONC 33.4 g/dl (32.0-36.5); MEAN CORPUSCULAR VOLUME 92.4 fl (80.0-96.0); RED CELL DISTRIBUTION WIDTH 15.5 % (11.5-14.5); WHITE BLOOD COUNT 5.6 K/mm3 (4.0-10.0)
[2017-04-23 10:10] LABS: ALBUMIN 2.1 GM/DL (3.2-5.2); ALBUMIN/GLOBULIN RATIO 0.46 (1.00-1.93); BILIRUBIN,TOTAL 0.2 MG/DL (0.2-1.0); CREATININE FOR GFR 1.44 MG/DL (0.70-1.30); GLOMERULAR FILTRATION RATE 51.5 (>42); POTASSIUM SERUM 4.1 MEQ/L (3.5-5.1); TOTAL PROTEIN 6.7 GM/DL (6.4-8.2)
== END ==
LOC: M LAB REF 09:28
PROVIDERS: ATTEND Physical Medicine & Rehabilitation
DX: C90.00 Multiple myeloma not having achieved remission (principal); Z48.811 Encounter for surgical aftercare following surgery on the nervous system; D64.9 Anemia, unspecified; N18.9 Chronic kidney disease, unspecified

== ENCOUNTER → 2017-04-27 | Outpatient (REF) | payer MEDICARE, OTHER ==
[2017-04-27 15:50] LABS: ALBUMIN 2.4 GM/DL (3.2-5.2); ALBUMIN/GLOBULIN RATIO 0.48 (1.00-1.93); BILIRUBIN,TOTAL 0.2 MG/DL (0.2-1.0); CALCIUM LEVEL 8.8 MG/DL (8.8-10.2); CREATININE FOR GFR 1.34 MG/DL (0.70-1.30); GLOMERULAR FILTRATION RATE 55.9 (>42); POTASSIUM SERUM 4.4 MEQ/L (3.5-5.1); TOTAL PROTEIN 7.4 GM/DL (6.4-8.2)
[2017-04-27 15:53] LABS: MEAN CORPUSCULAR HEMOGLOBIN 30.5 pg (27.0-33.0); MEAN CORPUSCULAR HGB CONC 32.9 g/dl (32.0-36.5); MEAN CORPUSCULAR VOLUME 92.7 fl (80.0-96.0); RED CELL DISTRIBUTION WIDTH 15.7 % (11.5-14.5); WHITE BLOOD COUNT 4.8 K/mm3 (4.0-10.0)
== END ==
LOC: M LAB REF 14:54
PROVIDERS: ATTEND Physical Medicine & Rehabilitation
DX: Z48.811 Encounter for surgical aftercare following surgery on the nervous system (principal); C90.00 Multiple myeloma not having achieved remission; D64.9 Anemia, unspecified; N18.9 Chronic kidney disease, unspecified

== ENCOUNTER → 2017-04-30 | Outpatient (REF) | payer MEDICARE, OTHER ==
[2017-04-30 15:49] LABS: ALBUMIN 2.6 GM/DL (3.2-5.2); ALBUMIN/GLOBULIN RATIO 0.5 (1.00-1.93); BILIRUBIN,TOTAL 0.2 MG/DL (0.2-1.0); CALCIUM LEVEL 8.7 MG/DL (8.8-10.2); CREATININE FOR GFR 1.51 MG/DL (0.70-1.30); GLOMERULAR FILTRATION RATE 48.7 (>42); POTASSIUM SERUM 4.2 MEQ/L (3.5-5.1); TOTAL PROTEIN 7.8 GM/DL (6.4-8.2)
[2017-04-30 17:28] LABS: MEAN CORPUSCULAR HEMOGLOBIN 29.5 pg (27.0-33.0); MEAN CORPUSCULAR HGB CONC 31.6 g/dl (32.0-36.5); MEAN CORPUSCULAR VOLUME 93.4 fl (80.0-96.0); WHITE BLOOD COUNT 4.6 K/mm3 (4.0-10.0)
== END ==
LOC: M LAB REF 15:09
PROVIDERS: ATTEND Physical Medicine & Rehabilitation
DX: C90.00 Multiple myeloma not having achieved remission (principal); N18.9 Chronic kidney disease, unspecified; D64.9 Anemia, unspecified

== ENCOUNTER → 2017-04-30 | Outpatient (REF) | payer MEDICARE, OTHER ==
[2017-04-30 16:01] LABS: FERRITIN 1405 NG/ML (26-388); IMMUNOGLOBULIN A 81.4 MG/DL (70-400); IMMUNOGLOBULIN G 2480 MG/DL (681-1648); IMMUNOGLOBULIN M 25.6 MG/DL (40-230); PERCENT SATURATION 22.5 % (19.7-50.0); TOTAL IRON BINDING CAPACITY 222 UG/DL (250-450); TOTAL PROTEIN 7.7 GM/DL (6.4-8.2)
[2017-04-30 20:06] LABS: RETIC HEMOGLOBIN CONTENT CHr 29.6 PG (24-36); RETICULOCYTE % 2.6 % (0.5-1.5)
[2017-05-03 14:55] LABS: GAMMA GLOBULIN % 31.2 % (11.1-18.8)
[2017-05-05 00:06] LABS: FREE KAPPA LIGHT CHAINS SERUM 40.3 mg/L (3.3-19.4); KAPPA/LAMBDA RATIO SERUM 0.63 (0.26-1.65)
== END ==
LOC: M LAB REF 15:11
PROVIDERS: ATTEND Internal Medicine Medical Oncology
DX: C90.00 Multiple myeloma not having achieved remission (principal); N18.9 Chronic kidney disease, unspecified; D64.9 Anemia, unspecified

== ENCOUNTER → 2017-05-07 | Outpatient (REF) | payer MEDICARE, OTHER ==
[2017-05-07 11:42] LABS: MEAN CORPUSCULAR HGB CONC 31.6 g/dl (32.0-36.5); MEAN CORPUSCULAR VOLUME 95.1 fl (80.0-96.0); RED CELL DISTRIBUTION WIDTH 17.1 % (11.5-14.5); WHITE BLOOD COUNT 4.9 K/mm3 (4.0-10.0)
[2017-05-07 12:10] LABS: ALBUMIN 2.8 GM/DL (3.2-5.2); ALBUMIN/GLOBULIN RATIO 0.53 (1.00-1.93); BILIRUBIN,TOTAL 0.4 MG/DL (0.2-1.0); CALCIUM LEVEL 9.1 MG/DL (8.8-10.2); CREATININE FOR GFR 1.82 MG/DL (0.70-1.30); GLOMERULAR FILTRATION RATE 39.3 (>42); POTASSIUM SERUM 4.4 MEQ/L (3.5-5.1); TOTAL PROTEIN 8.1 GM/DL (6.4-8.2)
== END ==
LOC: M LAB REF 08:45
PROVIDERS: ATTEND Internal Medicine Medical Oncology
DX: C90.00 Multiple myeloma not having achieved remission (principal); Z48.811 Encounter for surgical aftercare following surgery on the nervous system

== ENCOUNTER → 2017-07-08 | Outpatient (CLI) | payer MEDICARE, OTHER ==
--- NOTE | 2017-07-08 15:01 | REP ---
MR LUMBAR SPINE WITHOUT CONTRAST: HISTORY: Back pain. COMPARISON: 04/18/2017. A diffuse disc bulge is present at the L1-2 level. There is minimal compression of the thecal sac. There is hypertrophy of the posterior articulating facets. The L1 nerves exit the neural foramina without compression. The patient is status post L2 to S1 laminectomy. A diffuse disc bulge is present at the L2-3 level. This abuts the thecal sac. There is hypertrophy of the posterior articulating facets. The L2 nerves exit the neural foramina without compression. A fluid collection is present at the laminectomy site. The fluid collection extends from the L2 level inferior to the S1-2 level. The fluid collection measures 5.6 cm in transverse by 1.8 cm in AP by 15.6 cm in cephalocaudal dimensions and is decreased in size compared to the previous study. A diffuse disc bulge is present at the L3-4 level. This abuts the thecal sac. There is hypertrophy of the posterior articulating facets. The L3 nerves exit the neural foramina without compression. There is minimal compression of the thecal sac secondary to the fluid collection present at the laminectomy site. A diffuse disc bugle and small central disc protrusion are present at the L4-5 level. There is mild compression of the thecal sac secondary to the disc bulge, disc protrusion, and fluid collection present at the laminectomy site. There is hypertrophy of the posterior articulating facets. There are 5 mm of grade 1 spondylolisthesis of L4 on 5. There is compression of the L4 nerves in the neural foramina. A diffuse disc bulge is present at the L5-S1 level. There is no thecal sac compression. There is hypertrophy of the posterior articulating facets. There is compression of the L5 nerves in the neural foramina. The conus medullaris is normal in appearance terminating at the level of the T12-L1 intervertebral disc. There are old compression fractures of the L3 and 5 vertebral bodies with minimal and mild height loss respectively. There is a compression fracture of the L2 vertebral body with mild height loss. Minimal heterogeneous increased signal intensity on T2-weighted images is present. The represents a subacute fracture. A fluid collection is present in the midline subcutaneous tissues posterior to the laminectomy site fluid collection. This measures 6.6 cm in transverse by 1.9 x cm in AP by 17.6 cm in cephalocaudal dimensions and is decreased in size compared to the previous study. IMPRESSION: 1. The patient is status post L2-S1 laminectomy. There has been a decrease in size of the fluid collection present at the laminectomy site. There is minimal to mild compression of the thecal sac secondary to either disc bulge, disc bulge and disc herniation and fluid collection. This is decreased compared to the previous study. 2. Disc bulges at the L2-3, L3-4 and L5-S1 levels as described above. There is compression of the L5 nerves in the neural foramina. 3. Grade 1 spondylolisthesis of L4 on 5. There is compression of the L4 nerves in the neural foramina. 4. Subacute L2 compression fracture with mild height loss. 5. Old L3 and 5 compression fractures with minimal and mild height loss respectively. Signed by Doc Lovett MD 07/08/2017 03:16 P
== END ==
LOC: M RAD 12:06
PROVIDERS: ATTEND Radiology Radiation Oncology
DX: C90.00 Multiple myeloma not having achieved remission (principal)

== ENCOUNTER → 2017-07-22 | Outpatient (CLI) | payer MEDICARE, OTHER ==
--- NOTE | 2017-07-22 11:42 | REP ---
Clinical: Lower back pain. Comparison: 01/25/2017. Technique: AP and lateral views of the lumbosacral spine. Findings: A moderate compression deformity at L2 with approximately 35% loss of superior vertebral body height represents a change from prior examination. The posterior contour to the L2 vertebral body appears relatively intact. There appears to have been subsequent removal of X-fix device at the L4-5 level as well as multilevel laminectomy. Remainder examination appears relatively stable including diffuse osteopenia and advanced multilevel degenerative changes. Impression: Relatively new compression fracture at L2. Findings to suggest a relatively recent multilevel laminectomy and removal of X-fix device at L4-5. Signed by Ruslan Forrester MD 07/22/2017 11:34 A
== END ==
LOC: M RAD 11:10
PROVIDERS: ATTEND Neurological Surgery
DX: M54.5 Low back pain (principal)

== ENCOUNTER → 2017-09-13 | Outpatient (REF) | payer MEDICARE, OTHER ==
[2017-09-13 14:05] LABS: IMMUNOGLOBULIN A 40.5 MG/DL (70-400); IMMUNOGLOBULIN G 1350 MG/DL (681-1648); IMMUNOGLOBULIN M 59.4 MG/DL (40-230); TOTAL PROTEIN 6.9 GM/DL (6.4-8.2)
[2017-09-14 11:14] LABS: ALBUMIN % 51.3 % (55.8-66.1); ALPHA-2-GLOBULINS % 14.7 % (7.1-11.8); BETA-1-GLOBULINS % 5.2 % (4.7-7.2); BETA-2-GLOBULINS % 4.6 % (3.2-6.5); GAMMA GLOBULIN % 19.2 % (11.1-18.8)
[2017-09-14 11:15] LABS: ALBUMIN 3.54 GM/DL (3.29-5.55); ALPHA-1-GLOBULINS 0.35 GM/DL (0.17-0.41); ALPHA-2-GLOBULINS 1.01 GM/DL (0.42-0.99); BETA-1-GLOBULINS 0.36 GM/DL (0.28-0.60); BETA-2-GLOBULINS 0.32 GM/DL (0.19-0.55); GAMMA GLOBULINS 1.32 GM/DL (0.65-1.58)
[2017-09-15 00:06] LABS: FREE KAPPA LIGHT CHAINS SERUM 19.8 mg/L (3.3-19.4); FREE LAMBDA LIGHT CHAINS SERUM 20.3 mg/L (5.7-26.3); KAPPA/LAMBDA RATIO SERUM 0.98 (0.26-1.65)
== END ==
LOC: M LAB REF 13:02
DX: C90.00 Multiple myeloma not having achieved remission (principal)
CPT/HCPCS: 84165

== ENCOUNTER 2017-10-20 13:34 | Inpatient (IN) | payer MEDICARE, OTHER ==
[2017-10-20] MEDS: ENOXAPARIN 60 MG/0.6 ML SYR (J1650) SC (09:00)
[2017-10-20] MEDS: PANTOPRAZOLE 40MG TAB (PROTONIX) PO (09:00)
[2017-10-20 14:09] LABS: BASO % 0.1 % (0.0-1.0); HEMATOCRIT 28.6 % (42.0-52.0); HEMOGLOBIN 9.5 g/dl (14.0-18.0); IMMATURE GRANULOCYTE % 1.9 % (0-3.0); LYMPH # 0.9 10^3/uL (1.5-4.5); LYMPH % 5.7 % (24.0-44.0); MEAN CORPUSCULAR HGB CONC 33.2 g/dl (32.0-36.5); MEAN CORPUSCULAR VOLUME 93.5 fl (80.0-96.0); MONO # 1.6 10^3/uL (0.0-0.8); MONO % 10.4 % (0.0-5.0); NEUTROPHILS # 12.6 10^3/uL (1.8-7.7); NEUTROPHILS % 81.9 % (36.0-66.0); PLATELET COUNT, AUTOMATED 108 10^3/uL (150-450); RED BLOOD COUNT 3.06 10^6/uL (4.30-6.10); WHITE BLOOD COUNT 15.4 10^3/uL (4.0-10.0)
[2017-10-20 14:20] LABS: INR 0.99; PROTHROMBIN TIME 13.2 SECONDS (12.4-14.5)
[2017-10-20 14:28] LABS: ANION GAP 11 MEQ/L (8-16); BLOOD UREA NITROGEN 55 MG/DL (7-18); CALCIUM LEVEL 8.2 MG/DL (8.8-10.2); CARBON DIOXIDE LEVEL 20 MEQ/L (21-32); CHLORIDE LEVEL 107 MEQ/L (98-107); CREATININE FOR GFR 2.74 MG/DL (0.70-1.30); GLOMERULAR FILTRATION RATE 24.5 (>42); GLUCOSE, FASTING 93 MG/DL (70-100); POTASSIUM SERUM 4.6 MEQ/L (3.5-5.1); SODIUM LEVEL 138 MEQ/L (136-145)
[2017-10-20] MEDS: MORPHINE 4 MG/ML 1ML VIAL (J2270) IV (14:38)
[2017-10-20] MEDS ORDERED: ACETAMINOPHEN TAB 650MG DOSE (2X325MG) PO (16:15)
[2017-10-20] MEDS: PERCOCET 5MG/325MG TAB PO ×2 (18:05→23:00)
[2017-10-20] MEDS: NS 1,000 ML IV (18:45)
[2017-10-20] MEDS ORDERED: NS 1,000 ML IV (19:00)
[2017-10-20] MEDS: DOCUSATE SODIUM 100 MG CAP PO (23:00)
[2017-10-21] MEDS: MORPHINE 4 MG/ML 1ML VIAL (J2270) IV (03:12)
[2017-10-21 07:25] LABS: ANION GAP 10 MEQ/L (8-16); BLOOD UREA NITROGEN 49 MG/DL (7-18); CALCIUM LEVEL 7.8 MG/DL (8.8-10.2); CARBON DIOXIDE LEVEL 21 MEQ/L (21-32); CHLORIDE LEVEL 110 MEQ/L (98-107); GLUCOSE, FASTING 107 MG/DL (70-100); POTASSIUM SERUM 4.4 MEQ/L (3.5-5.1); SODIUM LEVEL 141 MEQ/L (136-145)
[2017-10-21 07:27] LABS: HEMATOCRIT 27.7 % (42.0-52.0); MEAN CORPUSCULAR HEMOGLOBIN 30.9 pg (27.0-33.0); MEAN CORPUSCULAR HGB CONC 32.5 g/dl (32.0-36.5); MEAN CORPUSCULAR VOLUME 95.2 fl (80.0-96.0); RED BLOOD COUNT 2.91 10^6/uL (4.30-6.10); RED CELL DISTRIBUTION WIDTH 20.2 % (11.5-14.5); WHITE BLOOD COUNT 9.8 10^3/uL (4.0-10.0)
[2017-10-21 07:40] LABS: PLATELET COUNT, AUTOMATED 88 10^3/uL (150-450)
[2017-10-21 07:41] LABS: IMMATURE PLATELET FRACTION % 6.6 % (0.0-10.9); PLATELET F 89
[2017-10-21] MEDS: SERTRALINE HCL 50 MG TAB PO (08:38)
[2017-10-21] MEDS: PANTOPRAZOLE 40MG TAB (PROTONIX) PO (08:39)
[2017-10-21] MEDS: CALCITRIOL 0.25 MCG CAP (S0169) PO (08:39)
[2017-10-21] MEDS: ALLOPURINOL 300 MG TAB PO (08:39)
[2017-10-21] MEDS: PERCOCET 5MG/325MG TAB PO ×2 (08:40→20:10)
[2017-10-21] MEDS: ENOXAPARIN 60 MG/0.6 ML SYR (J1650) SC (09:00)
[2017-10-21] MEDS: amLODIPine 5 MG TAB PO (09:00)
[2017-10-21] MEDS: DOCUSATE SODIUM 100 MG CAP PO ×2 (09:00→20:10)
[2017-10-21] MEDS: VITAMIN D 1,000 INTERNATIONAL UNITS TABLET PO (09:00)
[2017-10-21] MEDS ORDERED: TORSEMIDE 5MG TABLET PO (09:00)
[2017-10-21] MEDS ORDERED: ETOMIDATE INJ 20MG/10ML VIAL As Ordered (12:12)
[2017-10-21] MEDS ORDERED: fentaNYL 100 MCG/2 ML INJECTION (J3010) As Ordered (12:13)
[2017-10-21] MEDS ORDERED: ROCURONIUM BROMIDE 50 MG/5 ML VIAL As Ordered ×2 (12:14→13:51)
[2017-10-21] MEDS ORDERED: LIDOCAINE 2% INJ 100 MG/5 ML SDV (FOR ANES.) As Ordered ×2 (12:14→13:51)
[2017-10-21] MEDS: ceFAZolin 1GM INJ (J0690 PER 500MG) As Ordered (12:43)
[2017-10-21] MEDS: ceFAZolin 2 GM/D5W 50 ML IV BAG (J0690 PER 500MG) As Ordered (12:43)
[2017-10-21] MEDS ORDERED: MIDAZOLAM INJ 2 MG/2 ML VIAL (J2250) As Ordered (13:13)
[2017-10-21] MEDS: LIDOCAINE W/EPINEPHRINE 1% 20ML VIAL As Ordered (13:21)
[2017-10-21] MEDS: BUPIVACAINE HCL 0.25% 30 ML VIAL As Ordered (13:22)
[2017-10-21] MEDS ORDERED: fentaNYL 100 MCG/2 ML INJECTION (J3010) IV (15:15)
[2017-10-21] MEDS: LR 1,000 ML IV (15:15)
[2017-10-21] MEDS ORDERED: ONDANSETRON 4MG/2ML VIAL (J2405) IV (15:15)
[2017-10-21] MEDS: NS 1,000 ML IV (16:00)
[2017-10-22] MEDS: PERCOCET 5MG/325MG TAB PO ×2 (06:43→20:03)
[2017-10-22 06:53] LABS: HEMATOCRIT 23.5 % (42.0-52.0); HEMOGLOBIN 7.5 g/dl (14.0-18.0); MEAN CORPUSCULAR HEMOGLOBIN 30.9 pg (27.0-33.0); MEAN CORPUSCULAR HGB CONC 31.9 g/dl (32.0-36.5); MEAN CORPUSCULAR VOLUME 96.7 fl (80.0-96.0); RED BLOOD COUNT 2.43 10^6/uL (4.30-6.10); RED CELL DISTRIBUTION WIDTH 20.1 % (11.5-14.5); WHITE BLOOD COUNT 8.8 10^3/uL (4.0-10.0)
[2017-10-22 07:07] LABS: ANION GAP 7 MEQ/L (8-16); BLOOD UREA NITROGEN 37 MG/DL (7-18); CALCIUM LEVEL 7.3 MG/DL (8.8-10.2); CARBON DIOXIDE LEVEL 23 MEQ/L (21-32); CHLORIDE LEVEL 110 MEQ/L (98-107); CREATININE FOR GFR 2.07 MG/DL (0.70-1.30); GLOMERULAR FILTRATION RATE 33.9 (>42); GLUCOSE, FASTING 105 MG/DL (70-100); POTASSIUM SERUM 4.3 MEQ/L (3.5-5.1); SODIUM LEVEL 140 MEQ/L (136-145)
[2017-10-22 07:10] LABS: PLATELET COUNT, AUTOMATED 73 10^3/uL (150-450)
[2017-10-22 07:11] LABS: IMMATURE PLATELET FRACTION % 5.6 % (0.0-10.9)
[2017-10-22] MEDS: METAMUCIL (PSYLLIUM) PACKET PO (10:23)
[2017-10-22] MEDS: MOM 30ML SUSPENSION UDC PO (10:23)
[2017-10-22] MEDS: MIRALAX *UNIT DOSE* 17GM PACKET PO (10:23)
[2017-10-22] MEDS: SENOKOT S TAB PO ×2 (10:24→20:03)
[2017-10-22] MEDS: ENOXAPARIN 30 MG/0.3 ML SYR (J1650) SC (10:24)
[2017-10-22] MEDS: PANTOPRAZOLE 40MG TAB (PROTONIX) PO (10:24)
[2017-10-22] MEDS: ALLOPURINOL 300 MG TAB PO (10:25)
[2017-10-22] MEDS: amLODIPine 5 MG TAB PO ×2 (10:27→10:45)
[2017-10-22] MEDS: SERTRALINE HCL 50 MG TAB PO (10:28)
[2017-10-22] MEDS: VITAMIN D 1,000 INTERNATIONAL UNITS TABLET PO (10:28)
[2017-10-22 12:50] LABS: IMMEDIATE SPIN CROSSMATCH 1 2
[2017-10-22 16:01] LABS: HEMOGLOBIN 8.1 g/dl (14.0-18.0)
[2017-10-22] MEDS: WARFARIN SOD 5 MG TAB PO (19:04)
[2017-10-22] MEDS: TAMSULOSIN 0.4 MG CAP PO (20:03)
[2017-10-23] MEDS: PERCOCET 5MG/325MG TAB PO ×2 (05:41→15:48)
[2017-10-23 08:28] LABS: HEMATOCRIT 28.8 % (42.0-52.0); HEMOGLOBIN 9.5 g/dl (14.0-18.0); INR 1.13; MEAN CORPUSCULAR HEMOGLOBIN 30.9 pg (27.0-33.0); MEAN CORPUSCULAR VOLUME 93.8 fl (80.0-96.0); PROTHROMBIN TIME 14.7 SECONDS (12.4-14.5); RED BLOOD COUNT 3.07 10^6/uL (4.30-6.10); RED CELL DISTRIBUTION WIDTH 19.9 % (11.5-14.5); WHITE BLOOD COUNT 9.1 10^3/uL (4.0-10.0)
[2017-10-23 08:32] LABS: PLATELET COUNT, AUTOMATED 77 10^3/uL (150-450)
[2017-10-23 08:33] LABS: IMMATURE PLATELET FRACTION % 6.4 % (0.0-10.9)
[2017-10-23 08:38] LABS: ANION GAP 9 MEQ/L (8-16); BLOOD UREA NITROGEN 32 MG/DL (7-18); CALCIUM LEVEL 6.8 MG/DL (8.8-10.2); CARBON DIOXIDE LEVEL 21 MEQ/L (21-32); CHLORIDE LEVEL 111 MEQ/L (98-107); CREATININE FOR GFR 1.91 MG/DL (0.70-1.30); GLOMERULAR FILTRATION RATE 37.2 (>42); GLUCOSE, FASTING 122 MG/DL (70-100); MAGNESIUM LEVEL 2.4 MG/DL (1.8-2.4); POTASSIUM SERUM 4.3 MEQ/L (3.5-5.1); SODIUM LEVEL 141 MEQ/L (136-145)
[2017-10-23] MEDS: MIRALAX *UNIT DOSE* 17GM PACKET PO (08:47)
[2017-10-23] MEDS: METAMUCIL (PSYLLIUM) PACKET PO (08:47)
[2017-10-23] MEDS: CALCITRIOL 0.25 MCG CAP (S0169) PO (08:47)
[2017-10-23] MEDS: MOM 30ML SUSPENSION UDC PO (08:47)
[2017-10-23] MEDS: TORSEMIDE 5MG TABLET PO (08:47)
[2017-10-23] MEDS: PANTOPRAZOLE 40MG TAB (PROTONIX) PO (08:48)
[2017-10-23] MEDS: VITAMIN D 1,000 INTERNATIONAL UNITS TABLET PO (08:48)
[2017-10-23] MEDS: SENOKOT S TAB PO ×2 (08:48→21:12)
[2017-10-23] MEDS: amLODIPine 5 MG TAB PO (08:48)
[2017-10-23] MEDS: SERTRALINE HCL 50 MG TAB PO (08:48)
[2017-10-23] MEDS: ALLOPURINOL 300 MG TAB PO (08:48)
[2017-10-23] MEDS: WARFARIN SOD 5 MG TAB PO (16:47)
[2017-10-23] MEDS: TAMSULOSIN 0.4 MG CAP PO (21:12)
[2017-10-24 06:31] LABS: HEMATOCRIT 25.3 % (42.0-52.0); HEMOGLOBIN 8.4 g/dl (14.0-18.0); MEAN CORPUSCULAR HEMOGLOBIN 30.9 pg (27.0-33.0); MEAN CORPUSCULAR HGB CONC 33.2 g/dl (32.0-36.5); RED BLOOD COUNT 2.72 10^6/uL (4.30-6.10); RED CELL DISTRIBUTION WIDTH 19.6 % (11.5-14.5); WHITE BLOOD COUNT 7.4 10^3/uL (4.0-10.0)
[2017-10-24 06:32] LABS: PLATELET COUNT, AUTOMATED 76 10^3/uL (150-450)
[2017-10-24 06:37] LABS: INR 1.27; PROTHROMBIN TIME 16.2 SECONDS (12.4-14.5)
[2017-10-24 06:51] LABS: ANION GAP 8 MEQ/L (8-16); BLOOD UREA NITROGEN 31 MG/DL (7-18); CALCIUM LEVEL 7.3 MG/DL (8.8-10.2); CARBON DIOXIDE LEVEL 22 MEQ/L (21-32); CHLORIDE LEVEL 110 MEQ/L (98-107); CREATININE FOR GFR 1.81 MG/DL (0.70-1.30); GLOMERULAR FILTRATION RATE 39.5 (>42); GLUCOSE, FASTING 107 MG/DL (70-100); SODIUM LEVEL 140 MEQ/L (136-145)
[2017-10-24] MEDS: SENOKOT S TAB PO ×2 (08:32→20:18)
[2017-10-24] MEDS: SERTRALINE HCL 50 MG TAB PO (08:32)
[2017-10-24] MEDS: VITAMIN D 1,000 INTERNATIONAL UNITS TABLET PO (08:32)
[2017-10-24] MEDS: MOM 30ML SUSPENSION UDC PO (08:32)
[2017-10-24] MEDS: PANTOPRAZOLE 40MG TAB (PROTONIX) PO (08:32)
[2017-10-24] MEDS: amLODIPine 5 MG TAB PO (08:32)
[2017-10-24] MEDS: ALLOPURINOL 300 MG TAB PO (08:32)
[2017-10-24] MEDS: METAMUCIL (PSYLLIUM) PACKET PO (08:32)
[2017-10-24] MEDS: TORSEMIDE 5MG TABLET PO (08:33)
[2017-10-24] MEDS: PERCOCET 5MG/325MG TAB PO ×3 (08:34→20:21)
[2017-10-24 10:43] LABS: ALBUMIN 2.2 GM/DL (3.2-5.2); PHOSPHORUS LEVEL 2.1 MG/DL (2.5-4.9)
[2017-10-24] MEDS: NEUTRA-PHOS 1.25 GM PACKET PO ×3 (14:19→20:20)
[2017-10-24] MEDS: WARFARIN SOD 7.5 MG TAB PO (16:04)
[2017-10-24] MEDS: TAMSULOSIN 0.4 MG CAP PO (20:18)
[2017-10-25 06:41] LABS: HEMATOCRIT 26.8 % (42.0-52.0); HEMOGLOBIN 8.8 g/dl (14.0-18.0); MEAN CORPUSCULAR HGB CONC 32.8 g/dl (32.0-36.5); MEAN CORPUSCULAR VOLUME 94.4 fl (80.0-96.0); RED BLOOD COUNT 2.84 10^6/uL (4.30-6.10); RED CELL DISTRIBUTION WIDTH 18.9 % (11.5-14.5); WHITE BLOOD COUNT 6.5 10^3/uL (4.0-10.0)
[2017-10-25 06:49] LABS: PLATELET COUNT, AUTOMATED 85 10^3/uL (150-450)
[2017-10-25 06:50] LABS: IMMATURE PLATELET FRACTION % 4.3 % (0.0-10.9)
[2017-10-25 06:55] LABS: INR 1.56; PROTHROMBIN TIME 19.1 SECONDS (12.4-14.5)
[2017-10-25 06:56] LABS: ANION GAP 7 MEQ/L (8-16); BLOOD UREA NITROGEN 27 MG/DL (7-18); CALCIUM LEVEL 7.8 MG/DL (8.8-10.2); CARBON DIOXIDE LEVEL 24 MEQ/L (21-32); CHLORIDE LEVEL 110 MEQ/L (98-107); CREATININE FOR GFR 1.68 MG/DL (0.70-1.30); GLOMERULAR FILTRATION RATE 43.1 (>42); GLUCOSE, FASTING 94 MG/DL (70-100); POTASSIUM SERUM 4.3 MEQ/L (3.5-5.1); SODIUM LEVEL 141 MEQ/L (136-145)
[2017-10-25] MEDS: CALCITRIOL 0.25 MCG CAP (S0169) PO (08:40)
[2017-10-25] MEDS: VITAMIN D 1,000 INTERNATIONAL UNITS TABLET PO (08:40)
[2017-10-25] MEDS: BACTRIM 160MG/800MG DS TAB PO (08:40)
[2017-10-25] MEDS: PANTOPRAZOLE 40MG TAB (PROTONIX) PO (08:40)
[2017-10-25] MEDS: SERTRALINE HCL 50 MG TAB PO (08:40)
[2017-10-25] MEDS: MIRALAX *UNIT DOSE* 17GM PACKET PO (08:41)
[2017-10-25] MEDS: METAMUCIL (PSYLLIUM) PACKET PO (08:41)
[2017-10-25] MEDS: MOM 30ML SUSPENSION UDC PO (08:41)
[2017-10-25] MEDS: ALLOPURINOL 300 MG TAB PO (08:41)
[2017-10-25] MEDS: TORSEMIDE 5MG TABLET PO (08:41)
[2017-10-25] MEDS: SENOKOT S TAB PO (08:41)
[2017-10-25] MEDS: amLODIPine 5 MG TAB PO (08:42)
[2017-10-25] MEDS: NEUTRA-PHOS 1.25 GM PACKET PO (08:42)
[2017-10-25] MEDS: MAGNESIUM CITRATE 300 ML BTL PO (11:10)
[2017-10-25] MEDS ORDERED: WARFARIN SOD 7.5 MG TAB PO (17:00)
== END 2017-10-25 14:00 | DRG 481 ==
LOC: M ED 13:34 → M ED INP 16:11 → M MS5PR 22:45
PROC: 0SQ90ZZ Repair Right Hip Joint, Open Approach (ICD-10-PCS; principal; 2017-10-21 10:30)
PROC: 30253N1 (ICD-10-PCS; 2017-10-21 12:30)
DX: M84.451A Pathological fracture, right femur, initial encounter for fracture (principal); C90.00 Multiple myeloma not having achieved remission; D62 Acute posthemorrhagic anemia; N17.9 Acute kidney failure, unspecified; N25.81 Secondary hyperparathyroidism of renal origin; N18.4 Chronic kidney disease, stage 4 (severe); W11.XXXA Fall on and from ladder, initial encounter; Y92.009 Unspecified place in unspecified non-institutional (private) residence as the place of occurrence of the external cause; D63.1 Anemia in chronic kidney disease; Y99.8 Other external cause status; I12.9 Hypertensive chronic kidney disease with stage 1 through stage 4 chronic kidney disease, or unspecified chronic kidney disease; M10.30 Gout due to renal impairment, unspecified site; F41.9 Anxiety disorder, unspecified; F32.9 Major depressive disorder, single episode, unspecified; Z87.891 Personal history of nicotine dependence; Y93.H9 Activity, other involving exterior property and land maintenance, building and construction; Z79.899 Other long term (current) drug therapy

== ENCOUNTER 2017-10-25 14:05 | Inpatient (IN) | payer MEDICARE, OTHER ==
[~2017-10-25 14:05] MED LIST changes: -ALLO100T PO; -AMLO5TAB2 PO; +BISACODYL 10 MG SUPP PR; +BISACODYL 5 MG TAB PO; -CIPR500T3 PO; -CO Q100C PO; -COZA100T2 PO; +FLEET ENEMA PR; -LACT10SO3 PO; +LACTULOSE 20 GM/30 ML SYRUP UD PO; -LORTTAB5 PO; -LOSA25TA8 PO; -LOVE0.4I2 SC; -METO5TAB2 PO; -ONDA4TAB6 PO; +ONDANSETRON 4 MG TAB (S0181) PO; +ONDANSETRON 4MG/2ML VIAL (J2405) IM; -OPTI4PAD XX; -PANT40TA2 PO; -PERC5TAB12 PO; -RISATAB3 PO; -SERT50TA PO; -SOMA350T PO; -TYLE325T5 PO; -VANC125C2 PO; -ZANA2CAP PO; -ZOLO50TA PO; +diphenhydrAMINE 25 MG CAP PO
[2017-10-25] MEDS: NEUTRA-PHOS 1.25 GM PACKET PO ×2 (16:06→21:04)
[2017-10-25] MEDS: WARFARIN SOD 7.5 MG TAB PO (16:10)
[2017-10-25] MEDS: ACETAMINOPHEN TAB 650MG DOSE (2X325MG) PO (21:04)
[2017-10-25] MEDS: SENOKOT S TAB PO (21:05)
[2017-10-25] MEDS: ACYCLOVIR 200 MG CAPSULE PO (21:05)
[2017-10-25] MEDS: TAMSULOSIN 0.4 MG CAP PO (21:05)
[2017-10-26 06:54] LABS: BASO % 0.2 % (0.0-1.0); EOS % 0.6 % (0.0-3.0); HEMATOCRIT 27.4 % (42.0-52.0); IMMATURE GRANULOCYTE % 1.3 % (0-3.0); LYMPH # 0.5 10^3/uL (1.5-4.5); LYMPH % 8.6 % (24.0-44.0); MEAN CORPUSCULAR HEMOGLOBIN 30.4 pg (27.0-33.0); MEAN CORPUSCULAR HGB CONC 32.8 g/dl (32.0-36.5); MEAN CORPUSCULAR VOLUME 92.6 fl (80.0-96.0); MONO # 0.8 10^3/uL (0.0-0.8); MONO % 11.9 % (0.0-5.0); NEUTROPHILS # 4.9 10^3/uL (1.8-7.7); NEUTROPHILS % 77.4 % (36.0-66.0); RED BLOOD COUNT 2.96 10^6/uL (4.30-6.10); RED CELL DISTRIBUTION WIDTH 18.8 % (11.5-14.5); WHITE BLOOD COUNT 6.3 10^3/uL (4.0-10.0)
[2017-10-26 06:57] LABS: PLATELET COUNT, AUTOMATED 96 10^3/uL (150-450)
[2017-10-26 06:58] LABS: PLATELET F 96
[2017-10-26 06:59] LABS: INR 1.94; PROTHROMBIN TIME 22.8 SECONDS (12.4-14.5)
[2017-10-26 07:15] LABS: ALBUMIN 2.2 GM/DL (3.2-5.2); ALBUMIN/GLOBULIN RATIO 0.52 (1.00-1.93); ALKALINE PHOSPHATASE 46 U/L (45-117); ALT/SGPT 13 U/L (12-78); ANION GAP 8 MEQ/L (8-16); AST/SGOT 13 U/L (7-37); BILIRUBIN,TOTAL 0.4 MG/DL (0.2-1.0); BLOOD UREA NITROGEN 27 MG/DL (7-18); CALCIUM LEVEL 8.4 MG/DL (8.8-10.2); CARBON DIOXIDE LEVEL 24 MEQ/L (21-32); CHLORIDE LEVEL 108 MEQ/L (98-107); CREATININE FOR GFR 1.81 MG/DL (0.70-1.30); GLOMERULAR FILTRATION RATE 39.5 (>42); GLUCOSE, FASTING 99 MG/DL (70-100); POTASSIUM SERUM 4.8 MEQ/L (3.5-5.1); SODIUM LEVEL 140 MEQ/L (136-145); TOTAL PROTEIN 6.4 GM/DL (6.4-8.2)
[2017-10-26] MEDS: amLODIPine 5 MG TAB PO (08:56)
[2017-10-26] MEDS: FERROUS GLUCONATE 324 MG TAB PO (08:56)
[2017-10-26] MEDS: BACTRIM 160MG/800MG DS TAB PO (08:57)
[2017-10-26] MEDS: SENOKOT S TAB PO ×2 (08:57→21:14)
[2017-10-26] MEDS: TORSEMIDE 5MG TABLET PO (08:57)
[2017-10-26] MEDS: SERTRALINE HCL 50 MG TAB PO (08:57)
[2017-10-26] MEDS: PANTOPRAZOLE 40MG TAB (PROTONIX) PO (08:57)
[2017-10-26] MEDS: VITAMIN D 1,000 INTERNATIONAL UNITS TABLET PO (08:57)
[2017-10-26] MEDS: ALLOPURINOL 300 MG TAB PO (08:57)
[2017-10-26] MEDS: ACYCLOVIR 200 MG CAPSULE PO ×2 (08:57→21:14)
[2017-10-26] MEDS: NEUTRA-PHOS 1.25 GM PACKET PO ×3 (08:58→21:13)
[2017-10-26] MEDS: ACETAMINOPHEN TAB 650MG DOSE (2X325MG) PO ×2 (08:58→21:13)
[2017-10-26] MEDS: MOM 30ML SUSPENSION UDC PO (08:58)
[2017-10-26] MEDS: MIRALAX *UNIT DOSE* 17GM PACKET PO (08:58)
[2017-10-26] MEDS: WARFARIN SOD 2.5 MG TAB PO (17:15)
[2017-10-26] MEDS: TAMSULOSIN 0.4 MG CAP PO (21:14)
[2017-10-27 06:38] LABS: HEMATOCRIT 26.6 % (42.0-52.0); HEMOGLOBIN 8.6 g/dl (14.0-18.0); MEAN CORPUSCULAR HEMOGLOBIN 30.2 pg (27.0-33.0); MEAN CORPUSCULAR HGB CONC 32.3 g/dl (32.0-36.5); MEAN CORPUSCULAR VOLUME 93.3 fl (80.0-96.0); PLATELET COUNT, AUTOMATED 103 10^3/uL (150-450); RED BLOOD COUNT 2.85 10^6/uL (4.30-6.10); RED CELL DISTRIBUTION WIDTH 18.2 % (11.5-14.5); WHITE BLOOD COUNT 5.7 10^3/uL (4.0-10.0)
[2017-10-27 06:47] LABS: INR 2.12; PROTHROMBIN TIME 24.5 SECONDS (12.4-14.5)
[2017-10-27] MEDS: NEUTRA-PHOS 1.25 GM PACKET PO ×3 (08:15→20:27)
[2017-10-27] MEDS: BACTRIM 160MG/800MG DS TAB PO (08:15)
[2017-10-27] MEDS: SERTRALINE HCL 50 MG TAB PO (08:15)
[2017-10-27] MEDS: VITAMIN D 1,000 INTERNATIONAL UNITS TABLET PO (08:15)
[2017-10-27] MEDS: amLODIPine 5 MG TAB PO (08:15)
[2017-10-27] MEDS: PANTOPRAZOLE 40MG TAB (PROTONIX) PO (08:15)
[2017-10-27] MEDS: ALLOPURINOL 300 MG TAB PO (08:15)
[2017-10-27] MEDS: ACYCLOVIR 200 MG CAPSULE PO ×2 (08:16→20:28)
[2017-10-27] MEDS: CALCITRIOL 0.25 MCG CAP (S0169) PO (08:16)
[2017-10-27] MEDS: FERROUS GLUCONATE 324 MG TAB PO (08:16)
[2017-10-27] MEDS: TORSEMIDE 5MG TABLET PO (08:16)
[2017-10-27] MEDS: MIRALAX *UNIT DOSE* 17GM PACKET PO (08:19)
[2017-10-27] MEDS: SENOKOT S TAB PO ×2 (08:19→20:28)
[2017-10-27] MEDS: MOM 30ML SUSPENSION UDC PO (08:19)
[2017-10-27] MEDS: FAMOTIDINE 20 MG TAB PO ×2 (14:13→20:28)
[2017-10-27] MEDS: ACETAMINOPHEN TAB 650MG DOSE (2X325MG) PO (17:13)
[2017-10-27] MEDS: TAMSULOSIN 0.4 MG CAP PO (20:28)
[2017-10-28] MEDS: ACETAMINOPHEN TAB 650MG DOSE (2X325MG) PO (05:26)
[2017-10-28 06:49] LABS: INR 2.11; PROTHROMBIN TIME 24.4 SECONDS (12.4-14.5)
[2017-10-28] MEDS: NEUTRA-PHOS 1.25 GM PACKET PO ×3 (08:31→21:04)
[2017-10-28] MEDS: FERROUS GLUCONATE 324 MG TAB PO (08:32)
[2017-10-28] MEDS: ACYCLOVIR 200 MG CAPSULE PO ×2 (08:32→21:04)
[2017-10-28] MEDS: ALLOPURINOL 300 MG TAB PO (08:32)
[2017-10-28] MEDS: TORSEMIDE 5MG TABLET PO (08:32)
[2017-10-28] MEDS: amLODIPine 5 MG TAB PO (08:32)
[2017-10-28] MEDS: SERTRALINE HCL 50 MG TAB PO (08:32)
[2017-10-28] MEDS: VITAMIN D 1,000 INTERNATIONAL UNITS TABLET PO (08:32)
[2017-10-28] MEDS: FAMOTIDINE 20 MG TAB PO ×2 (08:33→21:03)
[2017-10-28] MEDS: MOM 30ML SUSPENSION UDC PO (08:33)
[2017-10-28] MEDS: MIRALAX *UNIT DOSE* 17GM PACKET PO (08:33)
[2017-10-28] MEDS: SENOKOT S TAB PO ×2 (08:34→21:00)
[2017-10-28] MEDS: PERCOCET 5MG/325MG TAB PO (11:07)
[2017-10-28] MEDS: ACETAMINOPHEN 325 MG TAB PO ×2 (15:43→21:04)
[2017-10-28] MEDS: TAMSULOSIN 0.4 MG CAP PO (21:04)
[2017-10-29] MEDS: oxyCODONE 5MG TAB PO (07:43)
[2017-10-29] MEDS: CALCITRIOL 0.25 MCG CAP (S0169) PO (08:42)
[2017-10-29] MEDS: ACYCLOVIR 200 MG CAPSULE PO ×2 (08:42→20:56)
[2017-10-29] MEDS: VITAMIN D 1,000 INTERNATIONAL UNITS TABLET PO (08:42)
[2017-10-29] MEDS: SERTRALINE HCL 50 MG TAB PO (08:43)
[2017-10-29] MEDS: TORSEMIDE 5MG TABLET PO (08:43)
[2017-10-29] MEDS: ALLOPURINOL 300 MG TAB PO (08:43)
[2017-10-29] MEDS: ACETAMINOPHEN 325 MG TAB PO ×3 (08:43→20:57)
[2017-10-29] MEDS: FAMOTIDINE 20 MG TAB PO ×2 (08:43→20:57)
[2017-10-29] MEDS: SENOKOT S TAB PO ×2 (08:43→20:58)
[2017-10-29] MEDS: MIRALAX *UNIT DOSE* 17GM PACKET PO (08:44)
[2017-10-29] MEDS: FERROUS GLUCONATE 324 MG TAB PO (08:44)
[2017-10-29] MEDS: NEUTRA-PHOS 1.25 GM PACKET PO ×3 (08:44→20:57)
[2017-10-29] MEDS: MOM 30ML SUSPENSION UDC PO (08:46)
[2017-10-29 09:02] LABS: INR 1.59; PROTHROMBIN TIME 19.4 SECONDS (12.4-14.5)
[2017-10-29 09:35] LABS: ANION GAP 13 MEQ/L (8-16); BLOOD UREA NITROGEN 41 MG/DL (7-18); CALCIUM LEVEL 8.2 MG/DL (8.8-10.2); CARBON DIOXIDE LEVEL 20 MEQ/L (21-32); CHLORIDE LEVEL 107 MEQ/L (98-107); CREATININE FOR GFR 2.43 MG/DL (0.70-1.30); GLOMERULAR FILTRATION RATE 28.1 (>42); GLUCOSE, FASTING 96 MG/DL (70-100); POTASSIUM SERUM 4.7 MEQ/L (3.5-5.1); SODIUM LEVEL 140 MEQ/L (136-145)
[2017-10-29] MEDS: WARFARIN SOD 3 MG TAB PO (16:28)
[2017-10-29] MEDS: TAMSULOSIN 0.4 MG CAP PO (20:57)
[2017-10-30] MEDS: oxyCODONE 5MG TAB PO ×2 (04:43→14:21)
[2017-10-30 06:22] LABS: INR 1.46; PROTHROMBIN TIME 18.1 SECONDS (12.4-14.5)
[2017-10-30 06:40] LABS: ANION GAP 9 MEQ/L (8-16); BLOOD UREA NITROGEN 43 MG/DL (7-18); CARBON DIOXIDE LEVEL 23 MEQ/L (21-32); CHLORIDE LEVEL 108 MEQ/L (98-107); CREATININE FOR GFR 2.23 MG/DL (0.70-1.30); GLOMERULAR FILTRATION RATE 31.1 (>42); GLUCOSE, FASTING 96 MG/DL (70-100); POTASSIUM SERUM 4.8 MEQ/L (3.5-5.1); SODIUM LEVEL 140 MEQ/L (136-145)
[2017-10-30] MEDS: SERTRALINE HCL 50 MG TAB PO (08:51)
[2017-10-30] MEDS: VITAMIN D 1,000 INTERNATIONAL UNITS TABLET PO (08:51)
[2017-10-30] MEDS: NEUTRA-PHOS 1.25 GM PACKET PO ×3 (08:51→21:04)
[2017-10-30] MEDS: ALLOPURINOL 100 MG TAB PO (08:51)
[2017-10-30] MEDS: ACETAMINOPHEN 325 MG TAB PO ×3 (08:52→21:03)
[2017-10-30] MEDS: FERROUS GLUCONATE 324 MG TAB PO (08:52)
[2017-10-30] MEDS: ACYCLOVIR 200 MG CAPSULE PO ×2 (08:52→21:03)
[2017-10-30] MEDS: FAMOTIDINE 20 MG TAB PO ×2 (08:52→21:03)
[2017-10-30] MEDS: MIRALAX *UNIT DOSE* 17GM PACKET PO (08:53)
[2017-10-30] MEDS: SENOKOT S TAB PO ×2 (08:53→21:00)
[2017-10-30] MEDS: WARFARIN SOD 3 MG TAB PO (16:29)
[2017-10-30] MEDS: TAMSULOSIN 0.4 MG CAP PO (21:03)
[2017-10-31 06:31] LABS: INR 1.35; PROTHROMBIN TIME 16.9 SECONDS (12.4-14.5)
[2017-10-31] MEDS: MIRALAX *UNIT DOSE* 17GM PACKET PO (09:00)
[2017-10-31] MEDS: SENOKOT S TAB PO ×2 (09:00→20:28)
[2017-10-31] MEDS: VITAMIN D 1,000 INTERNATIONAL UNITS TABLET PO (09:17)
[2017-10-31] MEDS: SERTRALINE HCL 50 MG TAB PO (09:17)
[2017-10-31] MEDS: NEUTRA-PHOS 1.25 GM PACKET PO ×3 (09:18→20:27)
[2017-10-31] MEDS: ACYCLOVIR 200 MG CAPSULE PO ×2 (09:18→20:28)
[2017-10-31] MEDS: FERROUS GLUCONATE 324 MG TAB PO (09:18)
[2017-10-31] MEDS: FAMOTIDINE 20 MG TAB PO ×2 (09:18→20:28)
[2017-10-31] MEDS: ALLOPURINOL 100 MG TAB PO (09:18)
[2017-10-31] MEDS: oxyCODONE 5MG TAB PO (09:18)
[2017-10-31] MEDS: CALCITRIOL 0.25 MCG CAP (S0169) PO (09:18)
[2017-10-31] MEDS: ACETAMINOPHEN 325 MG TAB PO ×3 (09:55→20:27)
[2017-10-31] MEDS: WARFARIN SOD 3 MG TAB PO (16:07)
[2017-10-31] MEDS: TAMSULOSIN 0.4 MG CAP PO (20:28)
[2017-11-01 07:15] LABS: INR 1.36; PROTHROMBIN TIME 17.1 SECONDS (12.4-14.5)
[2017-11-01 07:25] LABS: ANION GAP 9 MEQ/L (8-16); BLOOD UREA NITROGEN 38 MG/DL (7-18); CALCIUM LEVEL 8.2 MG/DL (8.8-10.2); CARBON DIOXIDE LEVEL 22 MEQ/L (21-32); CHLORIDE LEVEL 110 MEQ/L (98-107); CREATININE FOR GFR 1.83 MG/DL (0.70-1.30); GLUCOSE, FASTING 99 MG/DL (70-100); POTASSIUM SERUM 4.4 MEQ/L (3.5-5.1); SODIUM LEVEL 141 MEQ/L (136-145)
[2017-11-01] MEDS: ACYCLOVIR 200 MG CAPSULE PO ×2 (09:39→20:43)
[2017-11-01] MEDS: FERROUS GLUCONATE 324 MG TAB PO (09:40)
[2017-11-01] MEDS: MIRALAX *UNIT DOSE* 17GM PACKET PO (09:40)
[2017-11-01] MEDS: ACETAMINOPHEN 325 MG TAB PO ×3 (09:40→20:44)
[2017-11-01] MEDS: ALLOPURINOL 100 MG TAB PO (09:40)
[2017-11-01] MEDS: NEUTRA-PHOS 1.25 GM PACKET PO ×3 (09:40→20:43)
[2017-11-01] MEDS: VITAMIN D 1,000 INTERNATIONAL UNITS TABLET PO (09:41)
[2017-11-01] MEDS: SERTRALINE HCL 50 MG TAB PO (09:41)
[2017-11-01] MEDS: SENOKOT S TAB PO ×2 (09:41→20:44)
[2017-11-01] MEDS: FAMOTIDINE 20 MG TAB PO ×2 (09:41→20:43)
[2017-11-01] MEDS: oxyCODONE 5MG TAB PO (13:20)
[2017-11-01] MEDS: WARFARIN SOD 7.5 MG TAB PO (16:47)
[2017-11-01] MEDS: TAMSULOSIN 0.4 MG CAP PO (20:43)
[2017-11-01] MEDS: amLODIPine 5 MG TAB PO (20:45)
[2017-11-02] MEDS: oxyCODONE 5MG TAB PO (06:08)
[2017-11-02 06:36] LABS: HEMATOCRIT 27.7 % (42.0-52.0); MEAN CORPUSCULAR HEMOGLOBIN 30.3 pg (27.0-33.0); MEAN CORPUSCULAR HGB CONC 32.5 g/dl (32.0-36.5); MEAN CORPUSCULAR VOLUME 93.3 fl (80.0-96.0); PLATELET COUNT, AUTOMATED 127 10^3/uL (150-450); RED BLOOD COUNT 2.97 10^6/uL (4.30-6.10); RED CELL DISTRIBUTION WIDTH 17.8 % (11.5-14.5); WHITE BLOOD COUNT 4.3 10^3/uL (4.0-10.0)
[2017-11-02 06:48] LABS: INR 1.35; PROTHROMBIN TIME 16.9 SECONDS (12.4-14.5)
[2017-11-02 06:53] LABS: ALBUMIN 2.6 GM/DL (3.2-5.2); ALBUMIN/GLOBULIN RATIO 0.58 (1.00-1.93); ALKALINE PHOSPHATASE 88 U/L (45-117); ALT/SGPT 17 U/L (12-78); ANION GAP 8 MEQ/L (8-16); AST/SGOT 17 U/L (7-37); BILIRUBIN,TOTAL 0.3 MG/DL (0.2-1.0); BLOOD UREA NITROGEN 38 MG/DL (7-18); CALCIUM LEVEL 8.2 MG/DL (8.8-10.2); CARBON DIOXIDE LEVEL 22 MEQ/L (21-32); CHLORIDE LEVEL 108 MEQ/L (98-107); GLOMERULAR FILTRATION RATE 39.8 (>42); GLUCOSE, FASTING 91 MG/DL (70-100); POTASSIUM SERUM 4.3 MEQ/L (3.5-5.1); SODIUM LEVEL 138 MEQ/L (136-145); TOTAL PROTEIN 7.1 GM/DL (6.4-8.2)
[2017-11-02] MEDS: NEUTRA-PHOS 1.25 GM PACKET PO ×3 (09:21→20:10)
[2017-11-02] MEDS: CALCITRIOL 0.25 MCG CAP (S0169) PO (09:21)
[2017-11-02] MEDS: ACYCLOVIR 200 MG CAPSULE PO ×2 (09:21→20:10)
[2017-11-02] MEDS: VITAMIN D 1,000 INTERNATIONAL UNITS TABLET PO (09:22)
[2017-11-02] MEDS: SERTRALINE HCL 50 MG TAB PO (09:22)
[2017-11-02] MEDS: ACETAMINOPHEN 325 MG TAB PO ×3 (09:22→20:11)
[2017-11-02] MEDS: amLODIPine 5 MG TAB PO ×2 (09:22→20:11)
[2017-11-02] MEDS: FAMOTIDINE 20 MG TAB PO ×2 (09:22→20:10)
[2017-11-02] MEDS: FERROUS GLUCONATE 324 MG TAB PO (09:22)
[2017-11-02] MEDS: MIRALAX *UNIT DOSE* 17GM PACKET PO (09:22)
[2017-11-02] MEDS: SENOKOT S TAB PO ×2 (09:22→20:10)
[2017-11-02] MEDS: ALLOPURINOL 100 MG TAB PO (09:22)
[2017-11-02] MEDS: WARFARIN SOD 4 MG TAB PO (17:19)
[2017-11-02] MEDS: TAMSULOSIN 0.4 MG CAP PO (20:10)
[2017-11-02] MEDS: DICLOFENAC EPOLAMINE 1.3 % PATCH TOP (20:12)
[2017-11-02] MEDS: IBUPROFEN 800 MG TAB PO (23:00)
[2017-11-03] MEDS: oxyCODONE 5MG TAB PO ×3 (05:41→12:00)
[2017-11-03 07:39] LABS: HEMATOCRIT 29.8 % (42.0-52.0); HEMOGLOBIN 9.5 g/dl (14.0-18.0); MEAN CORPUSCULAR HEMOGLOBIN 30.1 pg (27.0-33.0); MEAN CORPUSCULAR HGB CONC 31.9 g/dl (32.0-36.5); MEAN CORPUSCULAR VOLUME 94.3 fl (80.0-96.0); PLATELET COUNT, AUTOMATED 129 10^3/uL (150-450); RED BLOOD COUNT 3.16 10^6/uL (4.30-6.10); RED CELL DISTRIBUTION WIDTH 17.8 % (11.5-14.5); WHITE BLOOD COUNT 4.7 10^3/uL (4.0-10.0)
[2017-11-03 07:50] LABS: INR 1.48; PROTHROMBIN TIME 18.3 SECONDS (12.4-14.5)
[2017-11-03 08:12] LABS: ALBUMIN 2.8 GM/DL (3.2-5.2); ALBUMIN/GLOBULIN RATIO 0.74 (1.00-1.93); ALKALINE PHOSPHATASE 89 U/L (45-117); ALT/SGPT 16 U/L (12-78); ANION GAP 9 MEQ/L (8-16); AST/SGOT 17 U/L (7-37); BILIRUBIN,TOTAL 0.4 MG/DL (0.2-1.0); BLOOD UREA NITROGEN 38 MG/DL (7-18); CALCIUM LEVEL 7.6 MG/DL (8.8-10.2); CARBON DIOXIDE LEVEL 21 MEQ/L (21-32); CHLORIDE LEVEL 108 MEQ/L (98-107); CREATININE FOR GFR 1.92 MG/DL (0.70-1.30); GLOMERULAR FILTRATION RATE 36.9 (>42); GLUCOSE, FASTING 102 MG/DL (70-100); POTASSIUM SERUM 4.3 MEQ/L (3.5-5.1); SODIUM LEVEL 138 MEQ/L (136-145); TOTAL PROTEIN 6.6 GM/DL (6.4-8.2)
[2017-11-03] MEDS: NEUTRA-PHOS 1.25 GM PACKET PO ×3 (09:18→20:14)
[2017-11-03] MEDS: FAMOTIDINE 20 MG TAB PO ×2 (09:18→20:16)
[2017-11-03] MEDS: VITAMIN D 1,000 INTERNATIONAL UNITS TABLET PO (09:19)
[2017-11-03] MEDS: ACYCLOVIR 200 MG CAPSULE PO ×2 (09:19→20:16)
[2017-11-03] MEDS: MIRALAX *UNIT DOSE* 17GM PACKET PO (09:19)
[2017-11-03] MEDS: FERROUS GLUCONATE 324 MG TAB PO (09:19)
[2017-11-03] MEDS: ALLOPURINOL 100 MG TAB PO (09:19)
[2017-11-03] MEDS: SENOKOT S TAB PO ×2 (09:19→20:16)
[2017-11-03] MEDS: SERTRALINE HCL 50 MG TAB PO (09:19)
[2017-11-03] MEDS: ACETAMINOPHEN 325 MG TAB PO ×3 (09:20→20:16)
[2017-11-03] MEDS: amLODIPine 5 MG TAB PO (09:22)
[2017-11-03] MEDS: DICLOFENAC EPOLAMINE 1.3 % PATCH TOP ×2 (09:22→20:17)
[2017-11-03] MEDS: AZITHROMYCIN 250 MG TAB PO (11:34)
[2017-11-03] MEDS: MIDODRINE 2.5 MG TAB PO (11:34)
[2017-11-03 12:49] LABS: INFLUENZA A AMPLIFICATION NEGATIVE (NEGATIVE); INFLUENZA B AMPLIFICATION NEGATIVE (NEGATIVE)
[2017-11-03] MEDS: WARFARIN SOD 5 MG TAB PO (16:50)
[2017-11-03] MEDS: TAMSULOSIN 0.4 MG CAP PO (20:16)
[2017-11-04] MEDS: oxyCODONE 5MG TAB PO ×2 (05:44→08:38)
[2017-11-04 07:02] LABS: HEMATOCRIT 26.7 % (42.0-52.0); HEMOGLOBIN 8.6 g/dl (14.0-18.0); MEAN CORPUSCULAR HEMOGLOBIN 30.3 pg (27.0-33.0); MEAN CORPUSCULAR HGB CONC 32.2 g/dl (32.0-36.5); PLATELET COUNT, AUTOMATED 110 10^3/uL (150-450); RED BLOOD COUNT 2.84 10^6/uL (4.30-6.10); RED CELL DISTRIBUTION WIDTH 17.9 % (11.5-14.5); WHITE BLOOD COUNT 6.5 10^3/uL (4.0-10.0)
[2017-11-04 07:21] LABS: INR 1.93; PROTHROMBIN TIME 22.7 SECONDS (12.4-14.5)
[2017-11-04 07:40] LABS: ALBUMIN 2.4 GM/DL (3.2-5.2); ALBUMIN/GLOBULIN RATIO 0.52 (1.00-1.93); ALKALINE PHOSPHATASE 77 U/L (45-117); ALT/SGPT 15 U/L (12-78); ANION GAP 10 MEQ/L (8-16); AST/SGOT 17 U/L (7-37); BILIRUBIN,TOTAL 0.4 MG/DL (0.2-1.0); BLOOD UREA NITROGEN 37 MG/DL (7-18); CALCIUM LEVEL 7.6 MG/DL (8.8-10.2); CARBON DIOXIDE LEVEL 22 MEQ/L (21-32); CHLORIDE LEVEL 104 MEQ/L (98-107); CREATININE FOR GFR 1.85 MG/DL (0.70-1.30); GLOMERULAR FILTRATION RATE 38.6 (>42); GLUCOSE, FASTING 93 MG/DL (70-100); POTASSIUM SERUM 4.1 MEQ/L (3.5-5.1); SODIUM LEVEL 136 MEQ/L (136-145)
[2017-11-04] MEDS: SENOKOT S TAB PO ×2 (07:46→20:51)
[2017-11-04] MEDS: MIRALAX *UNIT DOSE* 17GM PACKET PO (07:46)
[2017-11-04] MEDS: NEUTRA-PHOS 1.25 GM PACKET PO ×3 (08:37→20:50)
[2017-11-04] MEDS: CALCITRIOL 0.25 MCG CAP (S0169) PO (08:37)
[2017-11-04] MEDS: ACYCLOVIR 200 MG CAPSULE PO ×2 (08:37→20:52)
[2017-11-04] MEDS: AZITHROMYCIN 250 MG TAB PO (08:38)
[2017-11-04] MEDS: ACETAMINOPHEN 325 MG TAB PO (08:38)
[2017-11-04] MEDS: ALLOPURINOL 100 MG TAB PO (08:39)
[2017-11-04] MEDS: DICLOFENAC EPOLAMINE 1.3 % PATCH TOP ×2 (08:39→20:51)
[2017-11-04] MEDS: VITAMIN D 1,000 INTERNATIONAL UNITS TABLET PO (08:39)
[2017-11-04] MEDS: FERROUS GLUCONATE 324 MG TAB PO (08:39)
[2017-11-04] MEDS: SERTRALINE HCL 50 MG TAB PO (08:39)
[2017-11-04] MEDS: FAMOTIDINE 20 MG TAB PO ×2 (08:39→20:51)
[2017-11-04] MEDS: amLODIPine 5 MG TAB PO (09:48)
[2017-11-04 10:20] LABS: HEMATOCRIT 27.1 % (42.0-52.0); HEMOGLOBIN 8.8 g/dl (14.0-18.0); MEAN CORPUSCULAR HEMOGLOBIN 30.2 pg (27.0-33.0); MEAN CORPUSCULAR HGB CONC 32.5 g/dl (32.0-36.5); MEAN CORPUSCULAR VOLUME 93.1 fl (80.0-96.0); PLATELET COUNT, AUTOMATED 119 10^3/uL (150-450); RED BLOOD COUNT 2.91 10^6/uL (4.30-6.10); RED CELL DISTRIBUTION WIDTH 17.7 % (11.5-14.5); WHITE BLOOD COUNT 7.1 10^3/uL (4.0-10.0)
[2017-11-04] MEDS: LACTOBACILLUS ACIDOPHILUS CAP (BACID) PO ×2 (10:21→20:52)
[2017-11-04 10:57] LABS: ANION GAP 10 MEQ/L (8-16); BLOOD UREA NITROGEN 40 MG/DL (7-18); CALCIUM LEVEL 7.2 MG/DL (8.8-10.2); CARBON DIOXIDE LEVEL 21 MEQ/L (21-32); CHLORIDE LEVEL 103 MEQ/L (98-107); CREATININE FOR GFR 2.18 MG/DL (0.70-1.30); GLOMERULAR FILTRATION RATE 31.9 (>42); GLUCOSE, FASTING 124 MG/DL (70-100); POTASSIUM SERUM 4.2 MEQ/L (3.5-5.1); SODIUM LEVEL 134 MEQ/L (136-145)
[2017-11-04 15:42] LABS: KETONE, URINE AUTO RFX NEGATIVE (NEGATIVE); LEUKOCYTE ESTERASE UR AUTO RFX NEGATIVE (NEGATIVE); NITRITE, URINE AUTO RFX NEGATIVE (NEGATIVE); RBC, URINE AUTO RFX 2 /HPF (0-3); SPECIFIC GRAVITY UR AUTO RFX 1.012 (1.002-1.035); SQUAM EPITHELIAL CELL UR AURFX 0 /HPF (0-6); WBC, URINE AUTO RFX 2 /HPF (0-3)
[2017-11-04] MEDS: WARFARIN SOD 5 MG TAB PO (16:56)
[2017-11-04] MEDS: TAMSULOSIN 0.4 MG CAP PO (20:51)
[2017-11-05 06:49] LABS: HEMATOCRIT 26.1 % (42.0-52.0); HEMOGLOBIN 8.5 g/dl (14.0-18.0); MEAN CORPUSCULAR HEMOGLOBIN 30.2 pg (27.0-33.0); MEAN CORPUSCULAR HGB CONC 32.6 g/dl (32.0-36.5); MEAN CORPUSCULAR VOLUME 92.9 fl (80.0-96.0); PLATELET COUNT, AUTOMATED 118 10^3/uL (150-450); RED BLOOD COUNT 2.81 10^6/uL (4.30-6.10); RED CELL DISTRIBUTION WIDTH 17.4 % (11.5-14.5); WHITE BLOOD COUNT 5.6 10^3/uL (4.0-10.0)
[2017-11-05 07:12] LABS: ALBUMIN 2.3 GM/DL (3.2-5.2); ALBUMIN/GLOBULIN RATIO 0.49 (1.00-1.93); ALKALINE PHOSPHATASE 76 U/L (45-117); ALT/SGPT 16 U/L (12-78); ANION GAP 10 MEQ/L (8-16); AST/SGOT 20 U/L (7-37); BILIRUBIN,TOTAL 0.3 MG/DL (0.2-1.0); BLOOD UREA NITROGEN 35 MG/DL (7-18); CALCIUM LEVEL 7.3 MG/DL (8.8-10.2); CARBON DIOXIDE LEVEL 20 MEQ/L (21-32); CHLORIDE LEVEL 107 MEQ/L (98-107); CREATININE FOR GFR 1.75 MG/DL (0.70-1.30); GLOMERULAR FILTRATION RATE 41.1 (>42); GLUCOSE, FASTING 93 MG/DL (70-100); POTASSIUM SERUM 4.1 MEQ/L (3.5-5.1); SODIUM LEVEL 137 MEQ/L (136-145)
[2017-11-05] MEDS: NEUTRA-PHOS 1.25 GM PACKET PO ×3 (08:40→21:29)
[2017-11-05] MEDS: MIRALAX *UNIT DOSE* 17GM PACKET PO (08:40)
[2017-11-05] MEDS: DICLOFENAC EPOLAMINE 1.3 % PATCH TOP ×2 (08:40→21:29)
[2017-11-05] MEDS: VITAMIN D 1,000 INTERNATIONAL UNITS TABLET PO (08:40)
[2017-11-05] MEDS: amLODIPine 5 MG TAB PO (08:41)
[2017-11-05] MEDS: ACYCLOVIR 200 MG CAPSULE PO ×2 (08:41→21:29)
[2017-11-05] MEDS: LACTOBACILLUS ACIDOPHILUS CAP (BACID) PO ×2 (08:41→21:28)
[2017-11-05] MEDS: SENOKOT S TAB PO ×2 (08:41→21:00)
[2017-11-05] MEDS: ALLOPURINOL 100 MG TAB PO (08:41)
[2017-11-05] MEDS: SERTRALINE HCL 50 MG TAB PO (08:41)
[2017-11-05] MEDS: FAMOTIDINE 20 MG TAB PO ×2 (08:41→21:28)
[2017-11-05] MEDS: FERROUS GLUCONATE 324 MG TAB PO (08:42)
[2017-11-05] MEDS: AZITHROMYCIN 250 MG TAB PO (09:00)
[2017-11-05] MEDS: traMADol 50 MG TAB PO (14:00)
[2017-11-05] MEDS: WARFARIN SOD 3 MG TAB PO (16:46)
[2017-11-05] MEDS: TAMSULOSIN 0.4 MG CAP PO (21:29)
[2017-11-06 06:57] LABS: HEMATOCRIT 25.8 % (42.0-52.0); HEMOGLOBIN 8.5 g/dl (14.0-18.0); MEAN CORPUSCULAR HEMOGLOBIN 30.6 pg (27.0-33.0); MEAN CORPUSCULAR HGB CONC 32.9 g/dl (32.0-36.5); MEAN CORPUSCULAR VOLUME 92.8 fl (80.0-96.0); PLATELET COUNT, AUTOMATED 123 10^3/uL (150-450); RED BLOOD COUNT 2.78 10^6/uL (4.30-6.10); RED CELL DISTRIBUTION WIDTH 17.5 % (11.5-14.5); WHITE BLOOD COUNT 4.1 10^3/uL (4.0-10.0)
[2017-11-06 07:04] LABS: ALBUMIN 2.2 GM/DL (3.2-5.2); ALBUMIN/GLOBULIN RATIO 0.49 (1.00-1.93); ALKALINE PHOSPHATASE 79 U/L (45-117); ALT/SGPT 15 U/L (12-78); ANION GAP 10 MEQ/L (8-16); AST/SGOT 21 U/L (7-37); BILIRUBIN,TOTAL 0.3 MG/DL (0.2-1.0); BLOOD UREA NITROGEN 33 MG/DL (7-18); CALCIUM LEVEL 7.6 MG/DL (8.8-10.2); CARBON DIOXIDE LEVEL 21 MEQ/L (21-32); CHLORIDE LEVEL 107 MEQ/L (98-107); CREATININE FOR GFR 1.58 MG/DL (0.70-1.30); GLOMERULAR FILTRATION RATE 46.3 (>42); GLUCOSE, FASTING 94 MG/DL (70-100); POTASSIUM SERUM 4.1 MEQ/L (3.5-5.1); SODIUM LEVEL 138 MEQ/L (136-145); TOTAL PROTEIN 6.7 GM/DL (6.4-8.2)
[2017-11-06 07:10] LABS: INR 2.39
[2017-11-06] MEDS: SENOKOT S TAB PO ×2 (09:00→20:52)
[2017-11-06] MEDS: MIRALAX *UNIT DOSE* 17GM PACKET PO (09:00)
[2017-11-06] MEDS: VITAMIN D 1,000 INTERNATIONAL UNITS TABLET PO (09:23)
[2017-11-06] MEDS: ALLOPURINOL 100 MG TAB PO (09:23)
[2017-11-06] MEDS: CALCITRIOL 0.25 MCG CAP (S0169) PO (09:23)
[2017-11-06] MEDS: FAMOTIDINE 20 MG TAB PO ×2 (09:24→20:47)
[2017-11-06] MEDS: SERTRALINE HCL 50 MG TAB PO (09:24)
[2017-11-06] MEDS: AZITHROMYCIN 250 MG TAB PO (09:24)
[2017-11-06] MEDS: NEUTRA-PHOS 1.25 GM PACKET PO ×3 (09:24→20:28)
[2017-11-06] MEDS: LACTOBACILLUS ACIDOPHILUS CAP (BACID) PO ×2 (09:24→20:47)
[2017-11-06] MEDS: FERROUS GLUCONATE 324 MG TAB PO (09:24)
[2017-11-06] MEDS: ACYCLOVIR 200 MG CAPSULE PO ×2 (09:25→20:49)
[2017-11-06] MEDS: DICLOFENAC EPOLAMINE 1.3 % PATCH TOP ×2 (09:25→20:28)
[2017-11-06] MEDS: traMADol 50 MG TAB PO (10:44)
[2017-11-06] MEDS: ACETAMINOPHEN TAB 650MG DOSE (2X325MG) PO (13:55)
[2017-11-06] MEDS: TAMSULOSIN 0.4 MG CAP PO (20:47)
[2017-11-07 06:42] LABS: HEMATOCRIT 26.9 % (42.0-52.0); HEMOGLOBIN 8.6 g/dl (14.0-18.0); MEAN CORPUSCULAR HEMOGLOBIN 29.7 pg (27.0-33.0); MEAN CORPUSCULAR VOLUME 92.8 fl (80.0-96.0); PLATELET COUNT, AUTOMATED 134 10^3/uL (150-450); RED CELL DISTRIBUTION WIDTH 17.4 % (11.5-14.5); WHITE BLOOD COUNT 4.3 10^3/uL (4.0-10.0)
[2017-11-07 06:58] LABS: INR 2.19; PROTHROMBIN TIME 25.1 SECONDS (12.4-14.5)
[2017-11-07 07:01] LABS: ALBUMIN 2.3 GM/DL (3.2-5.2); ALBUMIN/GLOBULIN RATIO 0.49 (1.00-1.93); ALKALINE PHOSPHATASE 84 U/L (45-117); ALT/SGPT 15 U/L (12-78); ANION GAP 9 MEQ/L (8-16); AST/SGOT 18 U/L (7-37); BILIRUBIN,TOTAL 0.3 MG/DL (0.2-1.0); BLOOD UREA NITROGEN 29 MG/DL (7-18); CARBON DIOXIDE LEVEL 21 MEQ/L (21-32); CHLORIDE LEVEL 108 MEQ/L (98-107); CREATININE FOR GFR 1.46 MG/DL (0.70-1.30); GLOMERULAR FILTRATION RATE 50.7 (>42); GLUCOSE, FASTING 92 MG/DL (70-100); POTASSIUM SERUM 4.1 MEQ/L (3.5-5.1); SODIUM LEVEL 138 MEQ/L (136-145)
[2017-11-07] MEDS: SENOKOT S TAB PO ×2 (09:00→20:26)
[2017-11-07] MEDS: MIRALAX *UNIT DOSE* 17GM PACKET PO (09:00)
[2017-11-07] MEDS: FERROUS GLUCONATE 324 MG TAB PO (09:35)
[2017-11-07] MEDS: FAMOTIDINE 20 MG TAB PO ×2 (09:36→20:24)
[2017-11-07] MEDS: ACETAMINOPHEN TAB 650MG DOSE (2X325MG) PO (09:36)
[2017-11-07] MEDS: SERTRALINE HCL 50 MG TAB PO (09:36)
[2017-11-07] MEDS: AZITHROMYCIN 250 MG TAB PO (09:36)
[2017-11-07] MEDS: VITAMIN D 1,000 INTERNATIONAL UNITS TABLET PO (09:36)
[2017-11-07] MEDS: ALLOPURINOL 100 MG TAB PO (09:36)
[2017-11-07] MEDS: NEUTRA-PHOS 1.25 GM PACKET PO ×3 (09:36→20:24)
[2017-11-07] MEDS: ACYCLOVIR 200 MG CAPSULE PO ×2 (09:36→20:23)
[2017-11-07] MEDS: LACTOBACILLUS ACIDOPHILUS CAP (BACID) PO ×2 (09:37→20:24)
[2017-11-07] MEDS: DICLOFENAC EPOLAMINE 1.3 % PATCH TOP ×2 (09:37→20:25)
[2017-11-07] MEDS: traMADol 50 MG TAB PO (14:15)
[2017-11-07] MEDS: WARFARIN SOD 1 MG TAB PO (16:40)
[2017-11-07] MEDS: TAMSULOSIN 0.4 MG CAP PO (20:24)
[2017-11-08 07:23] LABS: HEMATOCRIT 26.4 % (42.0-52.0); HEMOGLOBIN 8.4 g/dl (14.0-18.0); MEAN CORPUSCULAR HEMOGLOBIN 29.3 pg (27.0-33.0); MEAN CORPUSCULAR HGB CONC 31.8 g/dl (32.0-36.5); PLATELET COUNT, AUTOMATED 140 10^3/uL (150-450); RED BLOOD COUNT 2.87 10^6/uL (4.30-6.10); RED CELL DISTRIBUTION WIDTH 17.4 % (11.5-14.5); WHITE BLOOD COUNT 4.7 10^3/uL (4.0-10.0)
[2017-11-08 07:36] LABS: INR 1.84; PROTHROMBIN TIME 21.9 SECONDS (12.4-14.5)
[2017-11-08 07:47] LABS: ALBUMIN 2.3 GM/DL (3.2-5.2); ALKALINE PHOSPHATASE 85 U/L (45-117); ALT/SGPT 15 U/L (12-78); ANION GAP 9 MEQ/L (8-16); AST/SGOT 16 U/L (7-37); BILIRUBIN,TOTAL 0.4 MG/DL (0.2-1.0); BLOOD UREA NITROGEN 28 MG/DL (7-18); CARBON DIOXIDE LEVEL 22 MEQ/L (21-32); CHLORIDE LEVEL 108 MEQ/L (98-107); CREATININE FOR GFR 1.54 MG/DL (0.70-1.30); GLOMERULAR FILTRATION RATE 47.6 (>42); GLUCOSE, FASTING 93 MG/DL (70-100); POTASSIUM SERUM 4.1 MEQ/L (3.5-5.1); SODIUM LEVEL 139 MEQ/L (136-145); TOTAL PROTEIN 6.9 GM/DL (6.4-8.2)
[2017-11-08] MEDS: LACTOBACILLUS ACIDOPHILUS CAP (BACID) PO (09:00)
[2017-11-08] MEDS: SENOKOT S TAB PO (09:00)
[2017-11-08] MEDS: CALCITRIOL 0.25 MCG CAP (S0169) PO (09:00)
[2017-11-08] MEDS: FERROUS GLUCONATE 324 MG TAB PO (09:00)
[2017-11-08] MEDS: MIRALAX *UNIT DOSE* 17GM PACKET PO (09:00)
[2017-11-08] MEDS: FAMOTIDINE 20 MG TAB PO (09:00)
[2017-11-08] MEDS: VITAMIN D 1,000 INTERNATIONAL UNITS TABLET PO (09:01)
[2017-11-08] MEDS: SERTRALINE HCL 50 MG TAB PO (09:01)
[2017-11-08] MEDS: AZITHROMYCIN 250 MG TAB PO (09:01)
[2017-11-08] MEDS: ACYCLOVIR 200 MG CAPSULE PO (09:01)
[2017-11-08] MEDS: ALLOPURINOL 100 MG TAB PO (09:01)
[2017-11-08] MEDS: DICLOFENAC EPOLAMINE 1.3 % PATCH TOP (09:02)
[2017-11-08] MEDS: NEUTRA-PHOS 1.25 GM PACKET PO (09:02)
[2017-11-08] MEDS ORDERED: WARFARIN SOD 2.5 MG TAB PO (17:00)
== END 2017-11-08 12:05 | disposition home health service (06) | DRG 560 ==
LOC: M PM&R 14:05
DX: S72.141D Displaced intertrochanteric fracture of right femur, subsequent encounter for closed fracture with routine healing (principal); C90.00 Multiple myeloma not having achieved remission; D62 Acute posthemorrhagic anemia; N18.4 Chronic kidney disease, stage 4 (severe); N17.9 Acute kidney failure, unspecified; W11.XXXD Fall on and from ladder, subsequent encounter; Y92.89 Other specified places as the place of occurrence of the external cause; D69.6 Thrombocytopenia, unspecified; K59.00 Constipation, unspecified; R26.89 Other abnormalities of gait and mobility; R50.9 Fever, unspecified; M10.9 Gout, unspecified; J06.9 Acute upper respiratory infection, unspecified; B97.81 Human metapneumovirus as the cause of diseases classified elsewhere; I95.9 Hypotension, unspecified; F41.9 Anxiety disorder, unspecified; F32.9 Major depressive disorder, single episode, unspecified; N40.0 Benign prostatic hyperplasia without lower urinary tract symptoms; I12.9 Hypertensive chronic kidney disease with stage 1 through stage 4 chronic kidney disease, or unspecified chronic kidney disease; Z86.14 Personal history of Methicillin resistant Staphylococcus aureus infection; Z79.01 Long term (current) use of anticoagulants; Z79.899 Other long term (current) drug therapy

== ENCOUNTER → 2017-11-11 | Outpatient (CLI) | payer MEDICARE, OTHER ==
[2017-11-11 11:46] LABS: INR 1.66; PROTHROMBIN TIME 20.1 SECONDS (12.4-14.5)
== END ==
LOC: M LAB 11:06
DX: Z51.81 Encounter for therapeutic drug level monitoring (principal); Z79.01 Long term (current) use of anticoagulants
CPT/HCPCS: 85610

== ENCOUNTER 2017-11-26 15:02 | Inpatient (IN) | payer MEDICARE, OTHER ==
[2017-11-26] MEDS: ATROPINE SULF 1MG/10ML SYRINGE (J0461) IV (12:45)
[2017-11-26] MEDS: NS 1,000 ML IV ×2 (12:45→14:00)
[2017-11-26] MEDS: LORazepam 2 MG/ML VIAL (J2060) IV ×2 (12:53→15:48)
[2017-11-26 14:48] LABS: BASO % 0.2 % (0.0-1.0); EOS % 0.2 % (0.0-3.0); HEMATOCRIT 29.9 % (42.0-52.0); HEMOGLOBIN 9.1 g/dl (13.5-17.5); IMMATURE GRANULOCYTE % 1.3 % (0-3.0); LYMPH # 0.5 10^3/uL (1.5-4.5); LYMPH % 6.2 % (24.0-44.0); MEAN CORPUSCULAR HEMOGLOBIN 29.7 pg (27.0-33.0); MEAN CORPUSCULAR HGB CONC 30.4 g/dl (32.0-36.5); MEAN CORPUSCULAR VOLUME 97.7 fl (80.0-96.0); MONO # 0.2 10^3/uL (0.0-0.8); MONO % 1.9 % (0.0-5.0); NEUTROPHILS # 7.5 10^3/uL (1.8-7.7); NEUTROPHILS % 90.2 % (36.0-66.0); PLATELET COUNT, AUTOMATED 158 10^3/uL (150-450); RED BLOOD COUNT 3.06 10^6/uL (4.30-6.10); RED CELL DISTRIBUTION WIDTH 18.4 % (11.5-14.5); WHITE BLOOD COUNT 8.3 10^3/uL (4.0-10.0)
[2017-11-26 14:57] LABS: INR 1.12; PROTHROMBIN TIME 14.6 SECONDS (12.4-14.5)
[~2017-11-26 15:02] MED LIST changes: +**UNRESOLVED NON-FORMULARY MED ORDER XX; +ATROPINE SULF 1MG/10ML SYRINGE (J0461) As Ordered; -BISACODYL 10 MG SUPP PR; -BISACODYL 5 MG TAB PO; -FLEET ENEMA PR; -LACTULOSE 20 GM/30 ML SYRUP UD PO; +LIDOCAINE 1% MDV 20ML VIAL As Ordered; -ONDANSETRON 4 MG TAB (S0181) PO; -ONDANSETRON 4MG/2ML VIAL (J2405) IM; -diphenhydrAMINE 25 MG CAP PO
[2017-11-26 15:17] LABS: ACETAMINOPHEN LEVEL < 2.0 UG/ML (10.0-30.0); ALBUMIN 2.6 GM/DL (3.2-5.2); ALBUMIN/GLOBULIN RATIO 0.63 (1.00-1.93); ALKALINE PHOSPHATASE 108 U/L (45-117); ALT/SGPT 20 U/L (12-78); ANION GAP 13 MEQ/L (8-16); AST/SGOT 22 U/L (7-37); BILIRUBIN,DIRECT < 0.1 MG/DL (0.0-0.2); BILIRUBIN,TOTAL 0.2 MG/DL (0.2-1.0); BLOOD UREA NITROGEN 30 MG/DL (7-18); CALCIUM LEVEL 7.7 MG/DL (8.8-10.2); CARBON DIOXIDE LEVEL 15 MEQ/L (21-32); CHLORIDE LEVEL 109 MEQ/L (98-107); CPK CREATINE PHOSPHOKINASE 79 U/L (39-308); CREATININE FOR GFR 2.03 MG/DL (0.70-1.30); GLOMERULAR FILTRATION RATE 34.6 (>42); GLUCOSE, FASTING 210 MG/DL (70-100); SALICYLATE LEVEL < 1.7 MG/DL (5.0-30.0); SODIUM LEVEL 137 MEQ/L (136-145); TOTAL PROTEIN 6.7 GM/DL (6.4-8.2); TROPONIN I 0.07 NG/ML (< 0.10)
[2017-11-26 15:23] LABS: CK-MB VALUE MASS 1.6 NG/ML (<3.6); MB/CK RELATIVE INDEX 2.02 (< OR =4)
[2017-11-26 15:26] LABS: ETHYL ALCOHOL (ETHANOL) < 0.003 % (0.000-0.010); POTASSIUM SERUM 5.6 MEQ/L (3.5-5.1)
[2017-11-26 15:27] LABS: LACTIC ACID SEPSIS PROTOCOL 7.2 MMOL/L (0.4-2.0)
[2017-11-26 15:40] LABS: AMPHETAMINES LEVEL URINE NEGATIVE (NEGATIVE); BARBITURATES URINE NEGATIVE (NEGATIVE); BENZODIAZEPINES URINE NEGATIVE (NEGATIVE); CANNABINOIDS URINE NEGATIVE (NEGATIVE); COCAINE METABOLITE URINE NEGATIVE (NEGATIVE); METHADONE URINE NEGATIVE (NEGATIVE); OPIATES URINE NEGATIVE (NEGATIVE); PHENCYCLIDINE URINE NEGATIVE (NEGATIVE)
[2017-11-26] MEDS: MORPHINE 4 MG/ML 1ML VIAL (J2270) IV (15:48)
[2017-11-26] MEDS ORDERED: fentaNYL 100 MCG/2 ML INJECTION (J3010) As Ordered (16:13)
[2017-11-26] MEDS ORDERED: LIDOCAINE 2% INJ 100 MG/5 ML SDV (FOR ANES.) As Ordered (16:13)
[2017-11-26] MEDS ORDERED: PROPOFOL 200 MG/20 ML VIAL As Ordered (16:13)
[2017-11-26] MEDS ORDERED: MUPIROCIN 2% OINT 22 GM TUBE As Ordered (16:15)
[2017-11-26] MEDS ORDERED: LIDOCAINE 1% SDV INJ 30 ML VIAL As Ordered (16:16)
[2017-11-26] MEDS ORDERED: VANCOMYCIN 1000 MG/20 ML VIAL (J3370) As Ordered (16:42)
[2017-11-26] MEDS: VANCOMYCIN 1000 MG/20 ML VIAL (J3370) As Ordered (17:08)
[2017-11-26] MEDS: ISOVUE-300 61% 50ML VIAL (Q9967) As Ordered (17:35)
[2017-11-26] MEDS ORDERED: ISOVUE-300 61% 50ML VIAL (Q9967) As Ordered (17:55)
[2017-11-26] MEDS ORDERED: METAL LOCK LOOP XX (18:46)
[2017-11-26] MEDS ORDERED: ACETAMINOPHEN TAB 650MG DOSE (2X325MG) PO (21:15)
[2017-11-26] MEDS ORDERED: fentaNYL 100 MCG/2 ML INJECTION (J3010) IV (21:15)
[2017-11-26] MEDS ORDERED: ONDANSETRON 4MG/2ML VIAL (J2405) IV (21:15)
[2017-11-26] MEDS: LR 1,000 ML IV (21:15)
[2017-11-26] MEDS ORDERED: traMADol 50 MG TAB PO (21:30)
[2017-11-26] MEDS ORDERED: SENOKOT S TAB PO (21:30)
[2017-11-26] MEDS ORDERED: SLF 3 ML SYR IV (22:30)
[2017-11-26] MEDS: NEUTRA-PHOS 1.25 GM PACKET PO ×2 (22:30→23:04)
[2017-11-26] MEDS: TAMSULOSIN 0.4 MG CAP PO (23:04)
[2017-11-26] MEDS: FAMOTIDINE 20 MG TAB PO (23:04)
[2017-11-26] MEDS: ACYCLOVIR 200 MG CAPSULE PO (23:05)
[2017-11-27] MEDS: NS 500 ML IV (03:30)
[2017-11-27] MEDS: SLF 3 ML SYR IV ×3 (05:37→21:11)
[2017-11-27] MEDS: ACYCLOVIR 200 MG CAPSULE PO ×2 (08:33→21:11)
[2017-11-27] MEDS: VITAMIN D 1,000 INTERNATIONAL UNITS TABLET PO (08:33)
[2017-11-27] MEDS: FAMOTIDINE 20 MG TAB PO ×2 (08:33→21:11)
[2017-11-27] MEDS: ALLOPURINOL 100 MG TAB PO (08:33)
[2017-11-27] MEDS: CALCITRIOL 0.25 MCG CAP (S0169) PO (08:33)
[2017-11-27] MEDS: NEUTRA-PHOS 1.25 GM PACKET PO ×2 (08:33→09:55)
[2017-11-27] MEDS: FERROUS GLUCONATE 324 MG TAB PO (08:34)
[2017-11-27] MEDS: MIRALAX *UNIT DOSE* 17GM PACKET PO (08:34)
[2017-11-27] MEDS: SERTRALINE HCL 50 MG TAB PO (08:34)
[2017-11-27 10:34] LABS: HEMATOCRIT 29.2 % (42.0-52.0); MEAN CORPUSCULAR HEMOGLOBIN 30.1 pg (27.0-33.0); MEAN CORPUSCULAR HGB CONC 30.8 g/dl (32.0-36.5); MEAN CORPUSCULAR VOLUME 97.7 fl (80.0-96.0); PLATELET COUNT, AUTOMATED 150 10^3/uL (150-450); RED BLOOD COUNT 2.99 10^6/uL (4.30-6.10); RED CELL DISTRIBUTION WIDTH 18.7 % (11.5-14.5); WHITE BLOOD COUNT 11.7 10^3/uL (4.0-10.0)
[2017-11-27 10:53] LABS: ANION GAP 11 MEQ/L (8-16); BLOOD UREA NITROGEN 40 MG/DL (7-18); CALCIUM LEVEL 7.7 MG/DL (8.8-10.2); CARBON DIOXIDE LEVEL 18 MEQ/L (21-32); CHLORIDE LEVEL 107 MEQ/L (98-107); CREATININE FOR GFR 2.38 MG/DL (0.70-1.30); GLOMERULAR FILTRATION RATE 28.8 (>42); GLUCOSE, FASTING 120 MG/DL (70-100); SODIUM LEVEL 136 MEQ/L (136-145)
[2017-11-27 11:16] LABS: POTASSIUM SERUM 5.5 MEQ/L (3.5-5.1)
[2017-11-27] MEDS: WARFARIN SOD 2.5 MG TAB PO (16:18)
[2017-11-27] MEDS: TAMSULOSIN 0.4 MG CAP PO (21:11)
[2017-11-28 04:34] LABS: HEMATOCRIT 26.3 % (42.0-52.0); HEMOGLOBIN 8.3 g/dl (13.5-17.5); MEAN CORPUSCULAR HGB CONC 31.6 g/dl (32.0-36.5); MEAN CORPUSCULAR VOLUME 94.9 fl (80.0-96.0); PLATELET COUNT, AUTOMATED 128 10^3/uL (150-450); RED BLOOD COUNT 2.77 10^6/uL (4.30-6.10); RED CELL DISTRIBUTION WIDTH 18.3 % (11.5-14.5); WHITE BLOOD COUNT 10.2 10^3/uL (4.0-10.0)
[2017-11-28 05:04] LABS: ALBUMIN 2.9 GM/DL (3.2-5.2); ALBUMIN/GLOBULIN RATIO 0.63 (1.00-1.93); ALKALINE PHOSPHATASE 96 U/L (45-117); ALT/SGPT 24 U/L (12-78); ANION GAP 9 MEQ/L (8-16); AST/SGOT 18 U/L (7-37); BILIRUBIN,TOTAL 0.2 MG/DL (0.2-1.0); BLOOD UREA NITROGEN 41 MG/DL (7-18); CALCIUM LEVEL 8.6 MG/DL (8.8-10.2); CARBON DIOXIDE LEVEL 20 MEQ/L (21-32); CHLORIDE LEVEL 109 MEQ/L (98-107); CREATININE FOR GFR 1.94 MG/DL (0.70-1.30); GLOMERULAR FILTRATION RATE 36.5 (>42); GLUCOSE, FASTING 139 MG/DL (70-100); SODIUM LEVEL 138 MEQ/L (136-145); TOTAL PROTEIN 7.5 GM/DL (6.4-8.2)
[2017-11-28 05:09] LABS: POTASSIUM SERUM 5.2 MEQ/L (3.5-5.1)
[2017-11-28] MEDS: SLF 3 ML SYR IV (05:48)
[2017-11-28] MEDS: MIRALAX *UNIT DOSE* 17GM PACKET PO (09:27)
[2017-11-28] MEDS: VITAMIN D 1,000 INTERNATIONAL UNITS TABLET PO (10:15)
[2017-11-28] MEDS: ALLOPURINOL 100 MG TAB PO (10:15)
[2017-11-28] MEDS: FERROUS GLUCONATE 324 MG TAB PO (10:15)
[2017-11-28] MEDS: ACYCLOVIR 200 MG CAPSULE PO (10:15)
[2017-11-28] MEDS: FAMOTIDINE 20 MG TAB PO (10:15)
[2017-11-28] MEDS: SERTRALINE HCL 50 MG TAB PO (10:15)
== END 2017-11-28 11:20 | disposition home health service (06) | DRG 243 ==
LOC: M ED 15:02 → M ED INP 15:03 → M ICU 21:47
PROC: 0JH606Z Insertion of Pacemaker, Dual Chamber into Chest Subcutaneous Tissue and Fascia, Open Approach (ICD-10-PCS; principal; 2017-11-26 14:31)
PROC: 02H63JZ Insertion of Pacemaker Lead into Right Atrium, Percutaneous Approach (ICD-10-PCS; 2017-11-26 14:31)
PROC: 02HK3JZ Insertion of Pacemaker Lead into Right Ventricle, Percutaneous Approach (ICD-10-PCS; 2017-11-26 14:31)
DX: I44.2 Atrioventricular block, complete (principal); C90.00 Multiple myeloma not having achieved remission; N18.4 Chronic kidney disease, stage 4 (severe); D64.9 Anemia, unspecified; D69.6 Thrombocytopenia, unspecified; M81.0 Age-related osteoporosis without current pathological fracture; R56.9 Unspecified convulsions; I12.9 Hypertensive chronic kidney disease with stage 1 through stage 4 chronic kidney disease, or unspecified chronic kidney disease; M10.9 Gout, unspecified; Z79.899 Other long term (current) drug therapy; Z85.51 Personal history of malignant neoplasm of bladder; Z85.528 Personal history of other malignant neoplasm of kidney

== ENCOUNTER → 2017-12-10 | Outpatient (REF) | payer MEDICARE, OTHER ==
[2017-12-10 14:27] LABS: IMMUNOGLOBULIN A 68.5 MG/DL (70-400); IMMUNOGLOBULIN G 1740 MG/DL (681-1648); IMMUNOGLOBULIN M 50.3 MG/DL (40-230); TOTAL PROTEIN 7.6 GM/DL (6.4-8.2)
[2017-12-12 00:06] LABS: FREE LAMBDA LIGHT CHAINS SERUM 27.8 mg/L (5.7-26.3); KAPPA/LAMBDA RATIO SERUM 1.08 (0.26-1.65)
[2017-12-15 09:50] LABS: ALBUMIN % 47.6 % (55.8-66.1); ALPHA-1-GLOBULIN % 5.2 % (2.9-4.9)
[2017-12-15 09:51] LABS: ALBUMIN 3.62 GM/DL (3.29-5.55); ALPHA-2-GLOBULINS 1.14 GM/DL (0.42-0.99); BETA-1-GLOBULINS 0.36 GM/DL (0.28-0.60); BETA-1-GLOBULINS % 4.7 % (4.7-7.2); BETA-2-GLOBULINS 0.35 GM/DL (0.19-0.55); BETA-2-GLOBULINS % 4.6 % (3.2-6.5); GAMMA GLOBULIN % 22.9 % (11.1-18.8); GAMMA GLOBULINS 1.74 GM/DL (0.65-1.58)
== END ==
LOC: M LAB REF 13:26
DX: C90.00 Multiple myeloma not having achieved remission (principal)
CPT/HCPCS: 84165

== ENCOUNTER → 2018-01-03 | Outpatient (CLI) | payer MEDICARE, OTHER ==
[2018-01-03 12:17] LABS: BASO % 0.2 % (0.0-1.0); EOS # 0.1 10^3/uL (0.0-0.50); EOS % 1.3 % (0.0-3.0); HEMATOCRIT 34.9 % (42.0-52.0); HEMOGLOBIN 11.2 g/dl (13.5-17.5); IMMATURE GRANULOCYTE % 0.5 % (0-3.0); LYMPH % 16.1 % (24.0-44.0); MEAN CORPUSCULAR HEMOGLOBIN 30.6 pg (27.0-33.0); MEAN CORPUSCULAR HGB CONC 32.1 g/dl (32.0-36.5); MEAN CORPUSCULAR VOLUME 95.4 fl (80.0-96.0); MONO # 0.9 10^3/uL (0.0-0.8); MONO % 14.3 % (0.0-5.0); NEUTROPHILS % 67.6 % (36.0-66.0); PLATELET COUNT, AUTOMATED 119 10^3/uL (150-450); RED BLOOD COUNT 3.66 10^6/uL (4.30-6.10); RED CELL DISTRIBUTION WIDTH 18.1 % (11.5-14.5)
== END ==
LOC: M LAB 11:41
DX: I48.0 Paroxysmal atrial fibrillation (principal)
CPT/HCPCS: 85027

== ENCOUNTER → 2018-01-07 | Outpatient (REF) | payer MEDICARE, OTHER ==
[2018-01-07 14:12] LABS: TOTAL PROTEIN 7.3 GM/DL (6.4-8.2)
[2018-01-09 00:06] LABS: FREE KAPPA LIGHT CHAINS SERUM 26.5 mg/L (3.3-19.4); FREE LAMBDA LIGHT CHAINS SERUM 25.3 mg/L (5.7-26.3); KAPPA/LAMBDA RATIO SERUM 1.05 (0.26-1.65)
[2018-01-11 13:25] LABS: ALBUMIN 3.66 GM/DL (3.29-5.55); ALBUMIN % 50.2 % (55.8-66.1); ALPHA-1-GLOBULIN % 5.1 % (2.9-4.9); ALPHA-1-GLOBULINS 0.37 GM/DL (0.17-0.41); ALPHA-2-GLOBULINS % 13.7 % (7.1-11.8); BETA-1-GLOBULINS 0.37 GM/DL (0.28-0.60); BETA-1-GLOBULINS % 5.1 % (4.7-7.2); BETA-2-GLOBULINS 0.34 GM/DL (0.19-0.55); BETA-2-GLOBULINS % 4.7 % (3.2-6.5); GAMMA GLOBULIN % 21.2 % (11.1-18.8); GAMMA GLOBULINS 1.55 GM/DL (0.65-1.58)
== END ==
LOC: M LAB REF 12:39
DX: C90.00 Multiple myeloma not having achieved remission (principal)
CPT/HCPCS: 84165

== ENCOUNTER → 2018-03-04 | Outpatient (REF) | payer MEDICARE, OTHER ==
[2018-03-04 14:42] LABS: IMMUNOGLOBULIN A 49.2 MG/DL (70-400); IMMUNOGLOBULIN G 1340 MG/DL (681-1648); IMMUNOGLOBULIN M 49.3 MG/DL (40-230); TOTAL PROTEIN 7.5 GM/DL (6.4-8.2)
[2018-03-06 09:05] LABS: FREE KAPPA LIGHT CHAINS SERUM 22.6 mg/L (3.3-19.4); FREE LAMBDA LIGHT CHAINS SERUM 21.7 mg/L (5.7-26.3); KAPPA/LAMBDA RATIO SERUM 1.04 (0.26-1.65)
[2018-03-07 15:00] LABS: ALBUMIN 3.86 GM/DL (3.29-5.55); ALBUMIN % 51.5 % (55.8-66.1); ALPHA-1-GLOBULIN % 5.2 % (2.9-4.9); ALPHA-1-GLOBULINS 0.39 GM/DL (0.17-0.41); ALPHA-2-GLOBULINS 1.04 GM/DL (0.42-0.99); ALPHA-2-GLOBULINS % 13.9 % (7.1-11.8); BETA-1-GLOBULINS % 5.3 % (4.7-7.2); BETA-2-GLOBULINS 0.35 GM/DL (0.19-0.55); BETA-2-GLOBULINS % 4.7 % (3.2-6.5); GAMMA GLOBULIN % 19.4 % (11.1-18.8); GAMMA GLOBULINS 1.46 GM/DL (0.65-1.58)
== END ==
LOC: M LAB REF 12:59
DX: C90.00 Multiple myeloma not having achieved remission (principal)
CPT/HCPCS: 84165

== ENCOUNTER → 2018-04-01 | Outpatient (REF) | payer MEDICARE, OTHER ==
[2018-04-01 14:11] LABS: IMMUNOGLOBULIN A 53.1 MG/DL (70-400); IMMUNOGLOBULIN G 1130 MG/DL (681-1648)
[2018-04-05 12:13] LABS: ALBUMIN 3.35 GM/DL (3.29-5.55); ALBUMIN % 47.8 % (55.8-66.1); ALPHA-1-GLOBULIN % 6.1 % (2.9-4.9); ALPHA-1-GLOBULINS 0.43 GM/DL (0.17-0.41); ALPHA-2-GLOBULINS 1.15 GM/DL (0.42-0.99); ALPHA-2-GLOBULINS % 16.4 % (7.1-11.8); BETA-1-GLOBULINS 0.39 GM/DL (0.28-0.60); BETA-1-GLOBULINS % 5.5 % (4.7-7.2); BETA-2-GLOBULINS 0.33 GM/DL (0.19-0.55); BETA-2-GLOBULINS % 4.7 % (3.2-6.5); GAMMA GLOBULIN % 19.5 % (11.1-18.8); GAMMA GLOBULINS 1.37 GM/DL (0.65-1.58)
== END ==
LOC: M LAB REF 13:21
DX: C90.00 Multiple myeloma not having achieved remission (principal)
CPT/HCPCS: 84165

== ENCOUNTER → 2018-05-06 | Outpatient (REF) | payer MEDICARE, OTHER ==
[2018-05-06 14:33] LABS: IMMUNOGLOBULIN G 1340 MG/DL (681-1648); IMMUNOGLOBULIN M 57 MG/DL (40-230); TOTAL PROTEIN 6.8 GM/DL (6.4-8.2)
[2018-05-12 11:21] LABS: ALBUMIN % 48.3 % (55.8-66.1)
[2018-05-12 11:22] LABS: ALBUMIN 3.28 GM/DL (3.29-5.55); ALPHA-1-GLOBULIN % 6.7 % (2.9-4.9); ALPHA-1-GLOBULINS 0.46 GM/DL (0.17-0.41); ALPHA-2-GLOBULINS 1.05 GM/DL (0.42-0.99); ALPHA-2-GLOBULINS % 15.5 % (7.1-11.8); BETA-1-GLOBULINS 0.36 GM/DL (0.28-0.60); BETA-1-GLOBULINS % 5.3 % (4.7-7.2); BETA-2-GLOBULINS 0.34 GM/DL (0.19-0.55); GAMMA GLOBULIN % 19.2 % (11.1-18.8); GAMMA GLOBULINS 1.31 GM/DL (0.65-1.58)
== END ==
LOC: M LAB REF 13:27
DX: C90.00 Multiple myeloma not having achieved remission (principal)
CPT/HCPCS: 84165

== ENCOUNTER → 2018-06-13 | Outpatient (CLI) | payer MEDICARE, OTHER | LOC: M CARPUL 08:23 | DX: C90.00 Multiple myeloma not having achieved remission (principal) | CPT/HCPCS: 94010 ==

== ENCOUNTER → 2018-07-08 | Outpatient (CLI) | payer MEDICARE, OTHER | LOC: M RAD 13:39 | DX: I65.23 Occlusion and stenosis of bilateral carotid arteries (principal) | CPT/HCPCS: 93880 ==

== ENCOUNTER → 2018-07-12 | Outpatient (CLI) | payer MEDICARE, OTHER | LOC: M RAD 14:51 | DX: R06.02 Shortness of breath (principal); J84.10 Pulmonary fibrosis, unspecified; R33.9 Retention of urine, unspecified | CPT/HCPCS: 76857 ==

== ENCOUNTER → 2018-08-01 | Outpatient (REF) | payer MEDICARE, OTHER ==
[2018-08-01 13:01] LABS: TOTAL PROTEIN,RANDOM URINE 168.5 MG/DL (0.0-12.0); URINE TOTAL PROTEIN 168.5 MG/DL (0-12)
[2018-08-04 14:16] LABS: UPEP INTERPRETATION M-SPIKE IN GAMMA; URINE VOLUME 1650 ML
[2018-08-04 14:20] LABS: IMMUNOTYPE URINE IgG ABNORMAL (NORMAL); IMMUNOTYPE URINE LAMBDA ABNORMAL (NORMAL)
== END ==
LOC: M LAB REF 12:00
DX: C90.00 Multiple myeloma not having achieved remission (principal)
CPT/HCPCS: 84166

== ENCOUNTER → 2018-08-31 | Outpatient (CLI) | payer MEDICARE, OTHER ==
[~2018-08-31] MED LIST changes: -**UNRESOLVED NON-FORMULARY MED ORDER XX; +ACET1TAB55 PO; +ACYC400T PO; +ALLO100T PO; +ALLO10TA PO; +AMLO2.5T3 PO; +AMLO25TA PO; +AMLO5TAB6 PO; +ASPI1TAB PO; +ATOR1TAB21 PO; -ATROPINE SULF 1MG/10ML SYRINGE (J0461) As Ordered; +AZIT500T2 PO; +BACT800T5 PO; +CIPR500T3 PO; +CO Q100C PO; +COUM2.5T17 PO; +COUM7.5T PO; +COZA100T2 PO; +DECA4TAB PO; +DEXA4TA PO; +DICL13PA TOP; +ELIQ5TAB; +FAMO1TAB11 PO; +FAMO20TA PO; +FERR325T16 PO; +FERR32TA PO; +FLOM0.4C39 PO; +FURO20TA2; +FURO20TA2 PO; +LACT10SO3 PO; -LIDOCAINE 1% MDV 20ML VIAL As Ordered; +LORTTAB5 PO; +LOSA25TA14 PO; +LOVE0.4I2 SC; +METO1TAB7; +METO5TAB2 PO; +NEUTPW PO; +ONDA4TAB6 PO; +OPTI4PAD XX; +PANT40TA3 PO; +PEG1POW PO; +PERC5TAB12 PO; +PRED20TA PO; +REVL10CA2 PO; +RISATAB3 PO; +ROCA0.5C PO; +SENN1TAB2 PO; +SERT50TA PO; +SOMA350T PO; +TORS5TAB2 PO; +TRAM50TA2 PO; +TYLE325T5 PO; +VALCADE; +VANC125C2 PO; +VELC3.5I INJ; +VENTAER INH; +VITA100066 PO; +ZANA2CAP PO; +ZOLO50TA PO; +ZOME4INJ IV; +ZYLO300T6 PO; +[UNRECOGNIZED DRUG - OTHER]
--- NOTE | 2018-08-31 16:57 | REP ---
SKELETAL SURVEY: COMPARISON: 02/11/2016 AP and lateral views of the skull demonstrate multiple lytic lesions consistent with history of multiple myeloma. These have increased in size and number both on the right and on the left. Multiple subcentimeter lytic lesions are seen throughout the mandible. AP and lateral views of the cervical spine demonstrate degenerative changes without definite lytic lesion identified. There are multiple subcentimeter lytic lesions in both clavicles. AP and lateral views of the thoracic spine demonstrate a left Mediport catheter with the tip in the superior vena cava. A right-sided dual lead pacemaker is noted. There is again loss of height of the T5 vertebral body with extensive lytic lesion involving the entire aspect of the vertebral body. There is also compression of T4 which is new with a mixed lytic and sclerotic appearance. There appears to be a lytic lesion in the anterior aspect of T3. There is heterogeneity of the T6 through T11 vertebral bodies and subtle lytic lesions could involve these vertebral bodies as well. There are also diffuse degenerative changes of the thoracic spine. AP and lateral views of the lumbar spine demonstrate moderate compression deformities of L2 and L5 as seen on prior MRI from [facility] 12/31/2016. No definite lytic lesion is seen in the lumbar vertebral bodies. There is mild diffuse degenerative disc change. The patient has a prior laminectomy L2 to L5. AP view of the pelvis demonstrates no definite lytic lesion. AP views of the femurs demonstrate an intramedullary sean in the right femur, with no definite new lytic lesion bilaterally. AP views of the humeri demonstrate multiple subcentimeter lytic lesions which appear to have increased in size and number on the right, but are grossly unchanged on the left. IMPRESSION: Progression of multiple myelomatous lesions in the skeleton as discussed in detail above. Electronically Signed by Joshua Saab MD 08/31/2018 07:57 P
== END ==
LOC: M RAD 14:31
PROVIDERS: ATTEND Internal Medicine Hematology & Oncology
DX: C90.00 Multiple myeloma not having achieved remission (principal)

== ENCOUNTER → 2018-10-07 | Outpatient (REF) | payer MEDICARE, OTHER ==
[~2018-10-07] MED LIST changes: +MONT10TA2 PO
[2018-10-07 16:01] LABS: TOTAL PROTEIN,RANDOM URINE 141.9 MG/DL (0.0-12.0); URINE TOTAL PROTEIN 141.9 MG/DL (0-12)
[2018-10-11 08:06] LABS: FREE LAMBDA LIGHT CHAINS URINE 6.23 mg/L (0.24-6.66); KAPPA/LAMBDA RATIO URINE 10.91 (2.04-10.37)
== END ==
LOC: M LAB REF 15:10
PROVIDERS: ATTEND Internal Medicine Hematology & Oncology
DX: C90.00 Multiple myeloma not having achieved remission (principal); Z79.899 Other long term (current) drug therapy

== ENCOUNTER → 2018-11-14 | Outpatient (CLI) | payer MEDICARE, OTHER ==
--- NOTE | 2018-11-14 14:41 | REP ---
CT chest without contrast: History: Nonspecific lung field abnormality. 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 Comparison is made with a chest CT studies the most recent which is from July 12, 2018 and the most remote of which is from March 2011. CT findings: The most recently identified area of pleuroparenchymal opacity in the right lower lobe is improved on the current CT study although not resolved. This is compatible with chronic atelectasis and fibrosis. No mass lesion is seen. No significant pulmonary nodule is noted here. No significant pulmonary nodules noted elsewhere. A destructive lytic lesion is again noted at to adjacent segments of the mid thoracic spine, apparently T C5 and C6. These are essentially unchanged from comparison CT study April 15, 2017. No progressive collapse is seen. There is diffuse osteopenia. No definite new lytic lesion. There is a left-sided Zjvdyt-S-Dvrf catheter and a right-sided pacemaker. No pleural or pericardial effusion. There are granulomatous lymph node calcifications in the right hilus. No adenopathy is seen. Impression: Improved parenchymal opacities in the right lower lobe consistent with chronic atelectasis and fibrosis. Stable bony destructive lesions in the thoracic spine. No pleural effusion visible today. Electronically Signed by Alfredito Gregorio MD 11/14/2018 02:32 P
== END ==
LOC: M RAD 13:00
PROVIDERS: ATTEND Physician Assistant
DX: R91.8 Other nonspecific abnormal finding of lung field (principal); Z95.0 Presence of cardiac pacemaker

== ENCOUNTER → 2018-11-21 | Outpatient (REF) | payer MEDICARE, OTHER ==
[~2018-11-21] MED LIST changes: +SPIR12.9 INH
[2018-11-21 11:50] LABS: CHOLESTEROL RISK RATIO 3.763 (<5)
== END ==
LOC: M LAB REF 11:25
PROVIDERS: ATTEND Family Medicine
DX: I10 Essential (primary) hypertension (principal)

== ENCOUNTER 2018-12-03 16:13 | Inpatient (IN) | payer MEDICARE, OTHER ==
[~2018-12-03] VITALS: Ht 182.9 cm; Wt 121.1 kg
[~2018-12-03 16:13] MED LIST changes: -ASPI1TAB PO; +ASPI81TA26 PO; -ELIQ5TAB; +ELIQ5TAB PO; -METO1TAB7; +METO1TAB7 PO; -SENN1TAB2 PO; +SENN1TAB40 PO; +SERT-141 PO; -SERT50TA PO; -VANC125C2 PO; +VANC125C3 PO
[2018-12-03] MEDS ORDERED: NS 1,000 ML IV ONE ×2 (16:30→18:00)
[2018-12-03] MEDS ORDERED: ACETAMINOPHEN 500 MG TAB PO ONE (16:30)
[2018-12-03 16:48] LABS: EOS % 4.8 % (0.0-3.0); HEMATOCRIT 24.4 % (42.0-52.0); HEMOGLOBIN 7.6 g/dl (13.5-17.5); LYMPH % 14.3 % (24.0-44.0); MEAN CORPUSCULAR HEMOGLOBIN 26.9 pg (27.0-33.0); MEAN CORPUSCULAR HGB CONC 31.1 g/dl (32.0-36.5); MEAN CORPUSCULAR VOLUME 86.2 fl (80.0-96.0); MONO % 9.5 % (0.0-5.0); RED BLOOD COUNT 2.83 10^6/uL (4.30-6.10)
[2018-12-03 16:56] LABS: ABG TOTAL CO2 15.3 MEQ/L (23.0-31.0)
[2018-12-03 16:57] LABS: ABG BASE EXCESS -6.7 (-2.0-2.0); ABG HCO3 14.7 MEQ/L (22.0-26.0); ABG O2 SATURATION 97.7 % (95.0-99.0); ABG PARTIAL PRESSURE CO2 17.6 mmHg (35.0-45.0); ABG PARTIAL PRESSURE O2 105.8 mmHg (75.0-100.0); ABG STANDARD HCO3 18.9 MEQ/L (22.0-26.0); ABG pH (ARTERIAL) 7.541 UNITS (7.350-7.450)
[2018-12-03 17:13] LABS: LYMPH # 0.1 10^3/uL (1.5-4.5); NEUTROPHILS # 0.3 10^3/uL (1.8-7.7); PLATELET COUNT, AUTOMATED 62 10^3/uL (150-450); WHITE BLOOD COUNT 0.4 10^3/uL (4.0-10.0)
[2018-12-03 17:16] LABS: ALBUMIN 2.4 GM/DL (3.2-5.2); BILIRUBIN,DIRECT 0.3 MG/DL (0.0-0.2); BILIRUBIN,TOTAL 0.9 MG/DL (0.2-1.0); CALCIUM LEVEL 7.3 MG/DL (8.8-10.2); CREATININE FOR GFR 2.11 MG/DL (0.70-1.30); MB/CK RELATIVE INDEX 0.92 (< OR =4); POTASSIUM SERUM 4.2 MEQ/L (3.5-5.1); TOTAL PROTEIN 5.3 GM/DL (6.4-8.2); TROPONIN I 0.05 NG/ML (< 0.10)
[2018-12-03] MEDS ORDERED: PIPERACILLIN/TAZOBACTAM SOD 3.375 GM in D5W MINI-BAG PLUS 50 ML IV ONE (17:30)
[2018-12-03] MEDS ORDERED: DEXA4TA PO (18:07)
[2018-12-03] MEDS ORDERED: MONT10TA2 PO (18:07)
[2018-12-03] MEDS ORDERED: ZYLO300T6 PO (18:07)
[2018-12-03] MEDS ORDERED: DARZ1SOL IV (18:07)
[2018-12-03] MEDS ORDERED: VENTAER INH (18:07)
[2018-12-03] MEDS ORDERED: SPIR1AER INH (18:07)
[2018-12-03] MEDS ORDERED: REVL10CA2 PO (18:07)
[2018-12-03] MEDS ORDERED: ACYC400T PO (18:08)
[2018-12-03] MEDS ORDERED: VITA200021 PO (18:11)
[2018-12-03] MEDS ORDERED: ACETAMINOPHEN TAB 650MG DOSE (2X325MG) PO PRN (18:15)
[2018-12-03] MEDS ORDERED: IPRATROPIUM 0.5MG/ALBUTEROL 2.5MG INH SOL UD 3ML (DUONEB)(J7620) NEB PRN (18:15)
[2018-12-03] MEDS ORDERED: VANCOMYCIN HCL 1,000 MG, VIAL MATE ADAPTER 1 EACH in D5W 250 ML IV ONE (19:00)
[2018-12-03] MEDS: IPRATROPIUM 0.5MG/ALBUTEROL 2.5MG INH SOL UD 3ML (DUONEB)(J7620) NEB SCH (20:00)
[2018-12-03 20:30] VITALS: BP 100/55
[2018-12-03] MEDS ORDERED: ASPIRIN 81 MG ENTERIC TAB PO SCH (21:00)
[2018-12-03] MEDS: METOPROLOL SUCC (TopROL XL) 50MG **XL** TAB PO SCH (21:00)
[2018-12-03] MEDS: LR 1,000 ML IV SCH (21:18)
[2018-12-03] MEDS: ACYCLOVIR 200 MG CAPSULE PO SCH (21:44)
[2018-12-03] MEDS: ATORVASTATIN 20 MG TAB PO SCH (21:44)
[2018-12-03] MEDS: APIXABAN 5 MG TAB (ELIQUIS) PO SCH (21:44)
[2018-12-03] MEDS: TAMSULOSIN 0.4 MG CAP PO SCH (21:44)
[2018-12-03 22:04] VITALS: BP 95/50
[2018-12-03 23:00] VITALS: BP 103/57
[2018-12-03] MEDS: PIPERACILLIN/TAZOBACTAM SOD 3.375 GM in D5W MINI-BAG PLUS 50 ML IV SCH (23:52)
[2018-12-04] VITALS (11 sets, daily range): BP systolic 97–139; BP diastolic 53–72
[2018-12-04] MEDS: IPRATROPIUM 0.5MG/ALBUTEROL 2.5MG INH SOL UD 3ML (DUONEB)(J7620) NEB SCH ×4 (01:40→20:56)
[2018-12-04] MEDS: LR 1,000 ML IV SCH ×3 (04:42→19:48)
[2018-12-04] MEDS: VANCOMYCIN HCL 1,000 MG, VIAL MATE ADAPTER 1 EACH in D5W 250 ML IV SCH ×2 (04:42→16:48)
[2018-12-04 05:12] LABS: EOS # 0.1 10^3/uL (0.0-0.50); EOS % 15.4 % (0.0-3.0); HEMATOCRIT 21.2 % (42.0-52.0); LYMPH % 10.3 % (24.0-44.0); MEAN CORPUSCULAR HEMOGLOBIN 26.6 pg (27.0-33.0); MEAN CORPUSCULAR HGB CONC 30.7 g/dl (32.0-36.5); MEAN CORPUSCULAR VOLUME 86.9 fl (80.0-96.0); MONO % 10.3 % (0.0-5.0); RED BLOOD COUNT 2.44 10^6/uL (4.30-6.10)
[2018-12-04 05:27] LABS: CALCIUM LEVEL 6.8 MG/DL (8.8-10.2); CREATININE FOR GFR 2.1 MG/DL (0.70-1.30); GLOMERULAR FILTRATION RATE 33.2 (>42); POTASSIUM SERUM 3.9 MEQ/L (3.5-5.1)
[2018-12-04 05:40] LABS: WHITE BLOOD COUNT 0.4 10^3/uL (4.0-10.0)
[2018-12-04 05:41] LABS: HEMOGLOBIN 6.5 g/dl (13.5-17.5); NEUTROPHILS # 0.3 10^3/uL (1.8-7.7); PLATELET COUNT, AUTOMATED 56 10^3/uL (150-450)
[2018-12-04] MEDS: PIPERACILLIN/TAZOBACTAM SOD 3.375 GM in D5W MINI-BAG PLUS 50 ML IV SCH ×4 (06:22→23:56)
--- NOTE | 2018-12-04 07:22 | ECGEPIP ---
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
--- NOTE | 2018-12-04 07:32 | REP ---
Oral chest x-ray: Single view. History: Dyspnea. Comparison chest x-ray: March 28, 2018. Findings: Oxygen delivery tubing is seen. EKG electrodes are seen. There is a right-sided transvenous pacemaker bipolar in the right heart. A Szprbf-T-Usbo catheter is seen via the left side with its tip in the expected location of the superior vena cava. Mildly prominent heart is seen. Pulmonary vasculature is cephalized. Interstitial markings are increased. The findings are unchanged when compared with the prior study of March 28, 2018. No acute infiltrate. Impression: Cardiomegaly with vascular congestion. Pacemaker. Jnqdjz-U-Cxrh catheter. No acute infiltrate seen. Electronically Signed by Alfredito Gregorio MD 12/04/2018 07:54 A
--- NOTE | 2018-12-04 08:19 | HPE ---
DATE OF ADMISSION: 12/03/2018 PRIMARY CARE PHYSICIAN: Dr. Jeremi Mina. ATTENDING PHYSICIAN: Hospitalist group. Camilo Maza is a 73-year-old followed by Dr. Rachel Aggarwal at [facility] Oncology office receiving active chemotherapy with Daratumumab and Revlimid for multiple myeloma who presents with a fever of 101 and neutropenia with an absent neutrophil count of below 300. To be admitted for antibiotic coverage and oncology consultation. PAST MEDICAL HISTORY: Multiple myeloma and presented with a plasma cytoma T4-T5 status-post radiation therapy, also L3 to L5 stabilization of surgery after compression fracture and laminectomy. 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 Stage 2AE status-post R-CHOP chemotherapy and intrathecal methotrexate with chondral lateral testicular radiation therapy. Had a post-op DVT of his left lower extremity and he is on Eliquis. He had a third degree heart block requiring a pacemaker 12/08, he had a right hip fracture after a mechanical fall from a ladder 11/07. OTHER PAST MEDICAL HISTORY: Chronic kidney disease stage 3, hypertension, history of gout, history of anxiety and depression. SOCIAL HISTORY: Smoked 2 1/2 packs a day for 56-years and has quit smoking. No alcohol or drug use. He is . FAMILY HISTORY: Once sister with Alzheimer's, both parents are . Father of an ND. Mother of old age. ALLERGIES: None known. MEDICATIONS: Chemotherapy as above, Tylenol as needed, A acyclovir 400 mg twice a day, albuterol as needed. Allopurinol 30 mg daily, Eliquis 5 mg twice a day, aspirin 81 mg daily, atorvastatin 20 mg daily, vitamin D 2,000 units daily, dexamethasone 20 mg weekly, famotidine 20 mg daily, Toprol XL 50 mg at bedtime, singular 10 mg twice a week. Sertraline 100 mg, tamsulosin 0.4 mg daily, Spiriva 1 inhalation daily. REVIEW OF SYSTEMS: He has a cough that is not productive and no hemoptysis, rectal bleeding, urinary bleeding, hematemesis. He denies any rashes, dysuria, nausea, vomiting, or diarrhea. PHYSICAL EXAMINATION: Temperature 101.3, blood pressure 109/52, pulse 85, respiratory rate 32, 94% on Oxygen saturation on 2 liters. GENERAL APPEARANCE: He looks ill, lying in bed, visiting with family. Pupils are equal round and reactive to light. Lungs have a few wheezes at the bases. Heart regular rhythm without murmur. Abdomen is soft and nontender and no masses. Trace edema. He has no arthritis, swelling of the calves and there is no rash. No palpable adenopathy, cervical, inguinal or axillary. Neurologic exam, intact with normal strength in the arms and legs. LABS: White count 0.4 with 69% neutrophils. Neutrophil count of approximately 280, hemoglobin was 7.6, platelets 62, baseline platelets around 170, sodium 136, potassium 4.2, BUN 35, creatinine 2.1, glucose 120, baseline creatinine approximately 2. Chest x-ray showed no active disease. IMPRESSION: 1. Febrile neutropenia. Patient will be admitted to ICU bed. His pressures are soft and he looks ill so we will put him in the ICU at least overnight. Cover with Juliet. Case was discussed with Dr. Jess Olievr who will see the patient in consultation. She advises Neupogen 480 mcg subcu daily and to allow so his neutrophil count is greater than 1,500. I have ordered a UA with a culture. Patient is on Decadron as an outpatient. Given stress dose steroids with IV Decadron 4 mg IV every 12 hours overnight and then we will defer to oncology on Decadron dosing tomorrow. Chemotherapy is being held. We will continue his acyclovir 400 mg twice a day which he uses as an outpatient. 2. History of DVT. He is on both aspirin and Eliquis. His platelets are only 62. I am holding the aspirin for now. Continue the Eliquis. 3. History of COPD and nebulizer bronchodilator has been ordered, oxygen 2 liters nasal cannula. 4. History of Gout. 5. Hyperlipidemia. Continue his atorvastatin. 6. History of depression. Continue the Sertraline. 7. BPH. Continue Flomax 0.4 mg. Urinalysis on culture ordered. Patient will be signed out to Dr. Mariaa Salazar who is night coverage tonight and the hospitalist group will resume his care tomorrow.
[2018-12-04] MEDS: SERTRALINE 100 MG TAB PO SCH (08:45)
[2018-12-04] MEDS: ALLOPURINOL 300 MG TAB PO SCH (08:45)
[2018-12-04] MEDS: ACYCLOVIR 200 MG CAPSULE PO SCH ×2 (08:45→21:11)
[2018-12-04] MEDS: FAMOTIDINE 20 MG TAB PO SCH (08:45)
[2018-12-04] MEDS: APIXABAN 5 MG TAB (ELIQUIS) PO SCH ×2 (08:45→21:06)
[2018-12-04] MEDS ORDERED: MONTELUKAST 10 MG TAB PO PRN (09:00)
[2018-12-04] MEDS: FILGRASTIM 480 MCG/0.8 ML SYRINGE (J1442) SC SCH (09:11)
--- NOTE | 2018-12-04 10:16 | IPNPDOC ---
Subjective Date Seen The patient was seen on 12/04/18. Subjective Chief Complaint/HPI Patient is afebrile, in no apparent distress. Offers no new complaints General: Reports: Normal Appetite; Denies: Chills, Night Sweats, Fatigue, Malaise Constitutional: Denies: Chills, Fever, Night Sweats Eyes: Denies: Pain, Vision change ENT: Denies: Head Aches, Ear Pain, Dysphagia Skin: Denies: Rash, Lesions, Breakdown Pulmonary: Denies: Dyspnea, Cough Cardiovascular: Denies: Chest Pain, Palpitations, Orthopnea, Paroxysmal Noc. Dyspnea, Lt Headedness Gastrointestinal: Denies: Nausea, Vomiting, Abdominal Pain, Diarrhea, Constipation Genitourinary: Denies: Dysuria, Frequency, Incontinence, Retention Hematologic: Denies: Bruising, Bleeding Excessively Musculoskeletal: Denies: Neck Pain, Back Pain, Joint Pain, Muscle Pain, Spasms Neurological: Denies: Weakness, Numbness, Change in speech, Confusion Psych: Reports: Mood Normal; Denies: Depression, Memory Issues Objective Physical Examination General Exam: Positive: Alert, No Acute Distress Eye Exam: Positive: PERRLA, Conjunctiva & lids normal, EOMI; Negative: Sclera icteric ENT Exam: Positive: Atraumatic, Mucous membr. moist/pink, Pharynx Normal Neck Exam: Positive: Supple; Negative: JVD, thyromegaly Chest Exam: Positive: Clear to auscultation, Normal air movement Heart Exam: Positive: Rate Normal, Regular Rhythm, Normal S1, Normal S2; Negative: Murmurs, Rubs Telemetry: Positive: No significant arrhythmia Abdomen Exam: Positive: Normal bowel sounds, Soft; Negative: Tenderness, Hepatospenomegaly Male Exam: Positive: Normal Genital Exam Extremity Exam: Positive: Normal pulses; Negative: Clubbing, Cyanosis, Edema Skin Exam: Positive: Nl turgor and temperature; Negative: Rash, Breakdown Neuro Exam: Positive: Normal Gait, Normal Speech, Cranial Nerves 3-12 NL, Reflexes 2+ Psych Exam: Positive: Mental status NL, Mood NL, Oriented x 3 Assessment /Plan Problems (1) Febrile neutropenia Status: Acute Response to Treatment: Stable Discussed With: Nurse Problem Specific Plan: Repeat Labs Problem Text: Patient is currently on Zosyn and vancomycin for febrile neutropenia His repeat WBC count is 0.4, hemoglobin of 6.5 Amiloride to transfuse this patient who is on chemotherapy. We'll repeat H&H at 12 PM and if still under 7 and was transfused 1 unit of PRBC Patient is on neutropenic precautions Repeat labs in a.m. Continue Neupogen as per orders DVT prophylaxis patient is already on apaxiban Plan/VTE VTE Prophylaxis Ordered?: Yes VS, I&O, 24H, Fishbone Vital Signs/I&O Vital Signs Date Time Temp Pulse Resp B/P (MAP) Pulse Ox O2 Delivery O2 Flow Rate FiO2 12/04/18 08:00 2.0 12/04/18 04:00 97.4 78 16 100/66 (77) 98 12/03/18 18:42 Nasal Cannula I&O- Last 24 Hours up to 6 AM 12/04/18 06:00 Intake Total 2735 ml Output Total 400 ml Balance 2335 ml Laboratory Data 24H LABS Laboratory Tests 2 12/03/18 16:30: Immature Granulocyte % (Auto) 2.4, White Blood Count 0.4*L, Red Blood Count 2.83L, Hemoglobin 7.6L, Hematocrit 24.4L, Mean Corpuscular Volume 86.2, Mean Corpuscular Hemoglobin 26.9L, Mean Corpuscular Hemoglobin Concent 31.1L, Red Cell Distribution Width 21.3H, Platelet Count 62L, Neutrophils (%) (Auto) 69.0H, Lymphocytes (%) (Auto) 14.3L, Monocytes (%) (Auto) 9.5H, Eosinophils (%) (Auto) 4.8H, Basophils (%) (Auto) 0.0, Neutrophils # (Auto) 0.3L, Lymphocytes # (Auto) 0.1L, Monocytes # (Auto) 0.0, Eosinophils # (Auto) 0.0, Basophils # (Auto) 0.0, Nucleated Red Blood Cells % (auto) 0.0, Immature Platelet Fraction 3.4 12/03/18 16:31: Anion Gap 12, Glomerular Filtration Rate 33.0L, Calcium Level 7.3L, Aspartate Amino Transf (AST/SGOT) 29, Alanine Aminotransferase (ALT/SGPT) 32, Alkaline Phosphatase 51, Total Bilirubin 0.9, Direct Bilirubin 0.3H, Total Creatine Kinase 403H, Creatine Kinase MB 4.0H, Creatine Kinase MB Relative Index 0.92, Tr oponin I 0.05, Total Protein 5.3L, Albumin 2.4L, Albumin/Globulin Ratio 0.83L 12/03/18 16:47: Blood Gas Bicarbonate Standard 18.9L, Arterial Blood pH 7.541H, Arterial Blood Partial Pressure CO2 17.6*L, Arterial Blood Partial Pressure O2 105.8H, Arterial Blood Total CO2 15.3L, Arterial Blood HCO3 14.7L, Arterial Blood Base Excess - 6.7L, Arterial Blood Oxygen Saturation 97.7 12/03/18 17:12: Lactic Acid Level 1.7 12/03/18 19:27: Urine Color YELLOW, Urine Appearance CLEAR, Urine pH 6.0, Urine Specific [place] 1.016, Urine Protein 2+H, Urine Glucose (UA) NEGATIVE, Urine Ketones NEGATIVE, Urine Blood NEGATIVE, Urine Nitrite NEGATIVE, Urine Bilirubin NEGATIVE, Urine Urobilinogen 2.0H, Urine Leukocyte Esterase NEGATIVE, Urine WBC (Auto) 0, Urine RBC (Auto) 0, Urine Hyaline Casts (Auto) 0, Urine Bacteria (Auto) NEGATIVE, Urine Squamous Epithelial Cells 0, Urine Sperm (Auto) 12/04/18 04:43: Immature Granulocyte % (Auto) 0.0, White Blood Count 0.4*L, Red Blood Count 2.44L, Hemoglobin 6.5*L, Hematocrit 21.2L, Mean Corpuscular Volume 86.9, Mean Corpuscular Hemoglobin 26.6L, Mean Corpuscular Hemoglobin Concent 30.7L, Red Cell Distribution Width 21.4H, Platelet Count 56L, Neutrophils (%) (Auto) 64.0, Lymphocytes (%) (Auto) 10.3L, Monocytes (%) (Auto) 10.3H, Eosinophils (%) (Auto) 15.4H, Basophils (%) (Auto) 0.0, Neutrophils # (Auto) 0.3L, Lymphocytes # (Auto) 0.0L, Monocytes # (Auto) 0.0, Eosinophils # (Auto) 0.1, Basophils # (Auto) 0.0, Nucleated Red Blood Cells % (auto) 5.1H, Anion Gap 9, Glomerular Filtration Rate 33.2L, Blood Urea Nitrogen 35H, Creatinine 2.10H, Sodium Level 138, Potassium Level 3.9, Chloride Level 110H, Carbon Dioxide Level 19L, Calcium Level 6.8L CBC/BMP Laboratory Tests 12/03/18 16:30 Red Blood Count 2.83 L, Mean Corpuscular Volume 86.2, Mean Corpuscular Hemoglobin 26.9 L, Mean Corpuscular Hemoglobin Concent 31.1 L, Red Cell Distribution Width 21.3 H, Neutrophils (%) (Auto) 69.0 H, Lymphocytes (%) (Auto) 14.3 L, Monocytes (%) (Auto) 9.5 H, Eosinophils (%) (Auto) 4.8 H, Basophils (%) (Auto) 0.0, Neutrophils # (Auto) 0.3 L, Lymphocytes # (Auto) 0.1 L, Monocytes # (Auto) 0.0, Eosinophils # (Auto) 0.0, Basophils # (Auto) 0.0 12/03/18 16:31 12/04/18 04:43 Red Blood Count 2.44 L, Mean Corpuscular Volume 86.9, Mean Corpuscular H emoglobin 26.6 L, Mean Corpuscular Hemoglobin Concent 30.7 L, Red Cell Distribution Width 21.4 H, Neutrophils (%) (Auto) 64.0, Lymphocytes (%) (Auto) 10.3 L, Monocytes (%) (Auto) 10.3 H, Eosinophils (%) (Auto) 15.4 H, Basophils (%) (Auto) 0.0, Neutrophils # (Auto) 0.3 L, Lymphocytes # (Auto) 0.0 L, Monocytes # (Auto) 0.0, Eosinophils # (Auto) 0.1, Basophils # (Auto) 0.0, Calcium Level 6.8 L Microbiology Microbiology 12/03/18 Blood Culture, Received Pending 12/03/18 Blood Culture, Received Pending 12/03/18 Respiratory Virus Panel (PCR) (DANIEL) - Final, Complete NURIA LOCKETT MD Dec 04, 2018 10:16
[2018-12-04 11:39] LABS: MEAN CORPUSCULAR HEMOGLOBIN 26.6 pg (27.0-33.0); MEAN CORPUSCULAR HGB CONC 31.1 g/dl (32.0-36.5); MEAN CORPUSCULAR VOLUME 85.6 fl (80.0-96.0); RED BLOOD COUNT 2.22 10^6/uL (4.30-6.10)
[2018-12-04 11:50] LABS: HEMOGLOBIN 5.9 g/dl (13.5-17.5); PLATELET COUNT, AUTOMATED 50 10^3/uL (150-450); WHITE BLOOD COUNT 0.3 10^3/uL (4.0-10.0)
--- NOTE | 2018-12-04 18:13 | PHACANCOPD ---
PHARMACY VANCOMYCIN DOSING Pt Demographics Demographics Patient Age:73 , Weight:113.600 , Gender: male Adjusted Body Weight Date: 12/04/18, Adjusted Body Weight: [92] Kg Events Past 24 Hours Events Past 24 Hours: YES: Fever; NO: Dialysis, Diuretic Therapy, Change in CrCl, Elevation in WBC, Pending Diagnostics, Pending Procedures, Other Vancomycin Vancomycin indication: febrile neutropenia Vancomycin Target Ranges: 10-20 mcg/ml Vancomycin Load Y/N: Yes Load Dose Date Time Vancomycin Load Dose: 1000mg Date: 12/03 Time: ~21:00 Vancomycin Dose Date: 12/04/18. Current Vancomycin Dose: [1g IV q12h @05] Intermittent Dosing?: No Labs Labs Item Value Date Time Creatinine 2.11 MG/DL H 12/03/18 1631 Creatinine 2.10 MG/DL H 12/04/18 0443 Vital Signs Label Value Date Time Patient Temperature 99.3 degrees F 12/04/18 1200 Patient Temperature 99.4 degrees F 12/04/18 0800 Temperature Source Temporal 12/04/18 0800 Micro Microbiology 12/03/18 Blood Culture - Preliminary, Resulted No growth after 24 hours . All specim... 12/03/18 Blood Culture - Preliminary, Resulted No growth after 24 hours . All specim... 12/03/18 Respiratory Virus Panel (PCR) (DANIEL) - Final, Complete Creatinine Clearance Date:12/04/18. Creatinine Clearance: [41 ml/min using adjusted BW]. Pending Labs Vanco trough scheduled 12/05 @04:00 Assessment and Plan Maintaining Current Dose?: Yes Reason for dose change: No Dose Change Pharmacist Note Pharmacist Note Date: 12/04/18. Pharmacist note: pt has been started on Zosyn and Vancomycin for febrile neutropenia. He has not been on vancomycin at our facility in the past. He received his first dose of vancomycin 1g IV last evening, followed by 1g IV q12h which started ~8 hours later. SCr is about at baseline. Vancomycin trough scheduled for this afternoon was missed, therefore I have rescheduled his trough for tomorrow morning before the next dose. I have his vancomycin on hold until his trough comes back. Blood cultures are pending. We will continue to monitor and follow up with his level in the morning. Gregorio Daiz Pharm.D. Dec 04, 2018 18:13
--- NOTE | 2018-12-04 20:35 | CR ---
DATE OF CONSULTATION: 12/04/2018 Medical oncology inpatient consult. Hospitalist service currently under Dr. 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 No adjuvant treatment at that time. - diagnosed with IgG lambda MGUS in 2012, with elevated free lambda light chains in serum and urine. - diagnosed with stage II AE DLBCL involving right testicle and paraaortic nodes, 2015, treated with right orchiectomy, R-CHOP for six cycles, intrathecal methotrexate, and para-aortic and spinal radiation all completed September 2016. - also in 2015 found to have progressed to multiple myeloma with thoracic and lumbar spinal plasmacytoma, as well as traumatic right hip fracture; all involved with myeloma; all treated with radiation in addition to surgical stabilization at the L3 site. - First systemic treatment for MM January 2016 : bortezomib (Velcade) / dexamethasone; continued until August 2018 stopped for skeletal progression; also received zoledronic acid, eventually switched to denosumab. - MM progression (skeletal) August 2018: started daratumumab /lenalidomide (Revlimid) / dexamethasone and continued daratumumab. Now s/p two cycles of the daratumumab based regimen. Treatment complicated by anemia requiring transfusion, leukopenia and renal insufficiency with lenalidomide renally dosed at 10 mg. Myelosuppression attributed to prior spinal radiation, and daratumumab and lenolidomide. 11 RBC units transfused since 2015 HPI: The day of admission --yesterday --Mrs. Maza says Mr. Maza was found lying on the bedroom floor having apparently slumped out of the bed after not getting up at his usual time. He was arousable and said he wanted to get up but just did not and was later found on the floor awake but very tired and the family decided to call the ambulance. He denies a prodrome of fever, shaking chills at home, cough, diarrhea, nausea or vomiting. On admission temperature was 101.3, WBC count 0.4, hemoglobin/hematocrit 7.6 and 24 respectively, blood pressure 109/52, based on all of these concern for high risk of neutropenic fever he was placed in the ICU unit overnight, started on Zosyn and one shot of vancomycin was given owing to frequent recent vascular access. PAST MEDICAL HISTORY: Stage III chronic kidney disease for several years, hypertension, gout, DVT on apixaban, third degree heart block status post pacemaker placement, lumbar laminectomy, knee meniscus surgery, ureterectomy with cuff or bladder resection, cystoscopy, TURP, permanent pacemaker placement. FAMILY HISTORY: Negative for malignancy. SOCIAL HISTORY: Greater than 100 pack-year smoking history, stopped 16 years ago. Denies alcohol. Lives with his . CURRENT MEDICATIONS INPATIENT: Reviewed. Notably including filgrastim 480 mcg subcutaneous begun today, vancomycin given early this morning, piperacillin, tazobactam, apixaban. REVIEW OF SYSTEMS: In addition to negative for cough, fever, chills, dysuria, hematuria or blood in stool, the patient's notices recent head bobbing and hand tremor with unusual tongue movements. This began she says a few months ago, the patient apparently does not notice it. She repeatedly mentions it in connection with meals but it happens at other times also. Mr. Maza denies specifically shortness of breath, a feeling of dysphagia or choking, chest pain, palpitations, but does acknowledge his head seems heavy and neck is tired. Baseline activity prior to this hospitalization was out of a chair only a little more than 50% of every day for ECOG Performance Status 2. Remainder of 12 system review negative. PHYSICAL EXAMINATION: Temperature 99.3, blood pressure 139/56, heart rate 81, respiratory 28, oxygen saturation 98% on 2 liters nasal cannula. Patient is an overweight elderly gentleman reclining in bed. Subtle repetitive tongue movements. Chin dropping, slight bobbing of head and leaning forward of head, progressive then recovering and resolving with mild bilateral finger twitching. No other facial abnormalities. No facial asymmetry. No shoulder asymmetry. Respiratory: Clear lungs to auscultation bilaterally, anteriorly, posteriorly. No wheezes, rales or rhonchi. Cardiac: S1, S2, distant, regular rate and rhythm. No murmur. No gallop. Abdomen: Soft, distended, nontender, no hepatosplenomegaly. No shifting dullness. Extremities. 1+ ankle edema left greater than right. No calf tenderness. Lymph nodes: No palpable submandibular, cervical, supraclavicular or axillary adenopathy bilaterally. LABORATORY DATA: WBC 0.3, hemoglobin 5.9, hematocrit 19, MCV 85, absolute neutrophil count 300, presence of nucleated RBCs 6.7, sodium and potassium normal, chloride 110, bicarbonate 19, BUN 35, creatinine 2.1, GFR 33, within the patient's baseline, lactic acid normal 1.7, calcium 6.8, albumin 2.4, quantitative immunoglobulins normal, free kappa 23 borderline high, free lambda normal, kappa lambda ratio 1.04. Most recent SPEP with M spike 0.4 grams and urine free kappa / lambda ratio high at 11 with a recent UPEP September 2018 positive for M spike. IMPRESSION: 1. Severe neutropenic fever in a patient on daratumumab / Revlimid / dexamethasone status post two initial cycles of treatment in the setting of prior spinal radiation and chemotherapy for diffuse large B-cell lymphoma. 2. Grade 3 anemia likely secondary to Revlimid (lenalidomide); abrupt decrease on this hospitalization may be multifactorial including hemoconcentration and hemodilution; further hematocrit drop should prompt GI workup in patient on anticoagulation. 3. Clinically improved following hydration and antibiotics with normalization of temperature and blood pressure. 4. Unexplained new apparent neck weakness and titubation in a patient with no prior history of either though on chronic steroids for approximately 2 years. RECOMMENDATIONS: 1. Agree with current antibiotic coverage. 2. Continue filgrastim 480 mcg subcutaneous daily until absolute neutrophil count 1500. 3. Transfuse leukocyte poor RBC to maintain Hb 8 or greater 4. Continue to hold Revlimid (lenalidomide) and daratumumab. 5. Agree with current stress dose steroids maintenance. 6. Head CT without contrast to rule out any intracranial lesion causing new neck and head symptoms. 7. If head CT negative, consider neurology evaluation. While proximal muscle weakness is common in patients on chronic steroids, this would be a somewhat unusual presentation and other entities such as myasthenia gravis can present with this progressive cyclic appearing neck weakness and difficulty with proximal cranial nerve strength which has been noted particularly at times of chewing. This patient has been followed in clinic by both Drs. Aggarwal and Dwayne and patient and his request to be followed by Dr. Rice while inpatient. [facility]
[2018-12-04] MEDS: METOPROLOL SUCC (TopROL XL) 50MG **XL** TAB PO SCH (21:00)
[2018-12-04] MEDS: TAMSULOSIN 0.4 MG CAP PO SCH (21:06)
[2018-12-04] MEDS: ATORVASTATIN 20 MG TAB PO SCH (21:06)
[2018-12-05] VITALS (21 sets, daily range): BP systolic 85–146; BP diastolic 50–70
[2018-12-05] MEDS: IPRATROPIUM 0.5MG/ALBUTEROL 2.5MG INH SOL UD 3ML (DUONEB)(J7620) NEB SCH ×4 (00:55→19:24)
[2018-12-05] MEDS: LR 1,000 ML IV SCH ×2 (03:00→10:59)
[2018-12-05 04:39] LABS: EOS % 1.5 % (0.0-3.0); HEMATOCRIT 18.1 % (42.0-52.0); LYMPH % 6.2 % (24.0-44.0); MEAN CORPUSCULAR HEMOGLOBIN 26.8 pg (27.0-33.0); MEAN CORPUSCULAR HGB CONC 31.5 g/dl (32.0-36.5); MONO # 0.1 10^3/uL (0.0-0.8); MONO % 10.8 % (0.0-5.0); NEUTROPHILS % 66.1 % (36.0-66.0); RED BLOOD COUNT 2.13 10^6/uL (4.30-6.10)
[2018-12-05 04:40] LABS: HEMOGLOBIN 5.7 g/dl (13.5-17.5); WHITE BLOOD COUNT 0.7 10^3/uL (4.0-10.0)
[2018-12-05 04:41] LABS: NEUTROPHILS # 0.4 10^3/uL (1.8-7.7); PLATELET COUNT, AUTOMATED 50 10^3/uL (150-450)
[2018-12-05 05:11] LABS: CALCIUM LEVEL 6.9 MG/DL (8.8-10.2); CREATININE FOR GFR 1.89 MG/DL (0.70-1.30); GLOMERULAR FILTRATION RATE 37.5 (>42); POTASSIUM SERUM 3.7 MEQ/L (3.5-5.1)
--- NOTE | 2018-12-05 05:26 | PHACANCOPD ---
PHARMACY VANCOMYCIN DOSING Pt Demographics Demographics Patient Age:73 , Weight:113.600 , Gender: male Adjusted Body Weight Date: 12/04/18, Adjusted Body Weight: [92] Kg Events Past 24 Hours Events Past 24 Hours: NO: Dialysis, Diuretic Therapy, Change in CrCl, Fever, Elevation in WBC, Pending Diagnostics, Pending Procedures, Other Vancomycin Vancomycin indication: febrile neutropenia Vancomycin Target Ranges: 10-20 mcg/ml Vancomycin Load Y/N: Yes Load Dose Date Time Vancomycin Load Dose: 1000mg Date: 12/03 Time: ~21:00 Vancomycin Dose Date: 12/04/18. Current Vancomycin Dose: [1g IV q12h @05] Intermittent Dosing?: No Labs Labs Item Value Date Time Creatinine 2.10 MG/DL H 12/04/18442 Creatinine 1.89 MG/DL H 12/05/18427 Vancomycin Level Trough 13.0 UG/ML 12/05/18427 Neutrophils # (Auto) 0.4 10^3/uL L 12/05/18427 Micro Microbiology 12/03/18 Blood Culture - Preliminary, Resulted No growth after 24 hours . All specim... 12/03/18 Blood Culture - Preliminary, Resulted No growth after 24 hours . All specim... 12/03/18 Respiratory Virus Panel (PCR) (DANIEL) - Final, Complete Creatinine Clearance Date:12/04/18. Creatinine Clearance: [41 ml/min using adjusted BW]. Pending Labs Vanco trough scheduled 12/05 @04:00 Assessment and Plan Maintaining Current Dose?: Yes Reason for dose change: No Dose Change Pharmacist Note Pharmacist Note Date: 12/05/18. Pharmacist note: Pt trough came back this morning at 13.0mcg/ml after receiving 3 doses. The patient will continue 1g IV every 12 hours. Another trough is scheduled 12/06 @ 04 to monitor for accumulation. We will continue to monitor and adjust the dose as needed. Date: 12/04/18. Pharmacist note: pt has been started on Zosyn and Vancomycin for febrile neutropenia. He has not been on vancomycin at our facility in the past. He received his first dose of vancomycin 1g IV last evening, followed by 1g IV q12h which started ~8 hours later. SCr is about at baseline. Vancomycin trough scheduled for this afternoon was missed, therefore I have rescheduled his trough for tomorrow morning before the next dose. I have his vancomycin on hold until his trough comes back. Blood cultures are pending. We will continue to monitor and follow up with his level in the morning. RE[facility] Dec 05, 2018 05:26
[2018-12-05] MEDS: VANCOMYCIN HCL 1,000 MG, VIAL MATE ADAPTER 1 EACH in D5W 250 ML IV SCH ×2 (05:29→16:19)
[2018-12-05] MEDS: PIPERACILLIN/TAZOBACTAM SOD 3.375 GM in D5W MINI-BAG PLUS 50 ML IV SCH ×4 (06:47→23:56)
--- NOTE | 2018-12-05 08:44 | IPN ---
DATE: 12/05/2018 I am seeing Mr. Maza for the hospitalist. He was admitted neutropenic fever. Clinically, he is doing well. He says he feels quite well. No fever or chills. Feels his energy levels are relatively good. He does not indicate he is having a problem with his head feeling heavy or neck pain, tiredness. He indicated by Dr. Oliver when she saw him, he is quite anemic and blood was ordered to be transfused. According to the nursing staff, "[facility] was closed" over the weekend and they were unable to obtain the irradiated leukocyte for blood. Apparently, it is on its way from [place] now, which is good, because his hemoglobin has drifted down to 5.7. He has no active bleeding. Notes no rectal bleeding. PHYSICAL EXAMINATION: Maximum temperature (Tmax) 100.4, 100/56, pulse 77, 95% on oxygen saturation on 2 liters. General appearance: Resting comfortably, in no distress., HEENT: Unremarkable. Moves his head well. No neck weakness. Lungs: Clear. Heart: Regular rate and rhythm. Abdomen: Soft, nontender. No masses. No peripheral edema. Skin: No rashes. No warmth, redness, swelling of any joints. LABS: White count 0.7 with 66% neutrophils for an absolute neutrophil count of approximately 430. Hemoglobin is 5.7. Platelets are 50. Sodium 138, potassium 3.7, BUN 27, creatinine 1.9, glucose 118. CT of the head was ordered yesterday, and showed multiple myeloma punched out lesions in the skull but no sign of any mass lesion. IMPRESSION: 1. Febrile neutropenia. Continue coverage with Zosyn and vancomycin, stress dose steroids and Neupogen until absolute neutrophil count is greater than 1500. His chemotherapeutic agents are on hold. 2. Query neck weakness. This seems to be better today. If it recurs, would consider a neurology referral. I suspect it is a paraneoplastic event. 3. Anemia. Check stool for occult blood. I suspect this is probably due to hydration on top of bone marrow suppression from his myeloma and chemo. I do not think he is having any gastrointestinal (GI) bleeding, none has been reported, but will check stool for occult blood. His vitals are good, and I think we can reduce his lactated Ringer's to 50 mL/h and probably stop it tomorrow. The blood was ordered yesterday still has not arrived yet, but nursing staff is actively awaiting it for transfusion. 4. Hypertension. His Toprol has been held for hypotensive blood pressures. We will put formal hold parameters. 5. History of deep venous thrombosis (DVT). We are holding his aspirin. He is still on the Eliquis. Platelets are still low, but he is not actively bleeding. 6. History of depression. Continue sertraline. 7. BPH. Continue Flomax.
[2018-12-05] MEDS: ACYCLOVIR 200 MG CAPSULE PO SCH ×2 (09:24→20:08)
[2018-12-05] MEDS: SERTRALINE 100 MG TAB PO SCH (09:24)
[2018-12-05] MEDS: ALLOPURINOL 300 MG TAB PO SCH (09:24)
[2018-12-05] MEDS: FAMOTIDINE 20 MG TAB PO SCH (09:25)
[2018-12-05] MEDS: APIXABAN 5 MG TAB (ELIQUIS) PO SCH (09:25)
--- NOTE | 2018-12-05 10:27 | REP ---
Noncontrast brain CT: History: Rule out CVA. Comparison CT study is from November 26 2017. Findings: Preliminary digital lab instructor radiograph demonstrates innumerable tiny punched out lytic lucencies in the calvarium consistent with the patient's history of multiple myeloma. This is unchanged from November 26, 2017. On soft-tissue window settings, there is moderate diffuse cerebral atrophy. No intracranial mass lesion is seen. There is no evidence of hemorrhage or infarction. No extra-axial fluid collection or midline shift is seen. Vascular calcifications noted bilaterally in the carotid arteries. Impression: Moderate diffuse atrophy, vascular calcification and some small vessel changes. No acute intracranial abnormality. Innumerable focal radiolucencies in the bony calvarium consistent with myelomatous lesions in the skull. Electronically Signed by Alfredito Gregorio MD 12/05/2018 10:30 A
[2018-12-05] MEDS: FILGRASTIM 480 MCG/0.8 ML SYRINGE (J1442) SC SCH (10:41)
--- NOTE | 2018-12-05 19:07 | IPN ---
DATE: 12/05/2018 Afternoon note. Camilo Maza's blood just arrived from [place]. Again, this was ordered yesterday but Dr. Mcintosh, but there were logistical problems obtaining it. Hemoglobin has slowly drifted down; it was 5.7 this morning. Stool is positive for occult blood without nikole bleeding, but there is occult blood now present as well. Certainly could be stress ulceration, but the possibility of more significant gastrointestinal (GI) bleeding needs to be entertained based upon his response to the transfusions. Per nursing staff, his blood has arrived, and they should be initiating his transfusions soon. His pressures have drifted down today, 85/51. He is not tachycardic, feels well. Will get a CBC after the blood is transfused.
--- NOTE | 2018-12-05 19:37 | IPN ---
DATE: 12/05/2018 Review of Camilo's afternoon shows that there has been a significant delay in getting his blood transfused. His pressure has been a little low. He had a hemoccult positive stool and thrombocytopenia related to the bone marrow depression from his chemotherapy. In the face of low platelets and heme positive stool, I feel that we need to hold his Eliquis for at least a day or so. He has a history of deep vein thrombosis (DVT), but I really do not see another option right now, particularly with his severe anemia and the significant problems getting the leukocyte poor irradiated blood. Should he develop a significant gastrointestinal bleed, it could be a very serious situation, but I did order sequential compression device for what it is worth for DVT prophylaxis.
[2018-12-05] MEDS: TAMSULOSIN 0.4 MG CAP PO SCH (20:08)
[2018-12-05] MEDS: ATORVASTATIN 20 MG TAB PO SCH (20:08)
[2018-12-05] MEDS: METOPROLOL SUCC (TopROL XL) 50MG **XL** TAB PO SCH (20:15)
[2018-12-05] MEDS ORDERED: METOPROLOL SUCC *XL* 25MG TAB (TopROL *XL*) PO SCH (21:00)
[2018-12-06] VITALS (12 sets, daily range): BP systolic 100–156; BP diastolic 60–76
[2018-12-06 00:57] LABS: HEMATOCRIT 22.8 % (42.0-52.0); HEMOGLOBIN 7.3 g/dl (13.5-17.5); MEAN CORPUSCULAR HEMOGLOBIN 27.1 pg (27.0-33.0); MEAN CORPUSCULAR VOLUME 84.8 fl (80.0-96.0); RED BLOOD COUNT 2.69 10^6/uL (4.30-6.10)
[2018-12-06 01:00] LABS: PLATELET COUNT, AUTOMATED 54 10^3/uL (150-450); WHITE BLOOD COUNT 0.8 10^3/uL (4.0-10.0)
[2018-12-06] MEDS: IPRATROPIUM 0.5MG/ALBUTEROL 2.5MG INH SOL UD 3ML (DUONEB)(J7620) NEB SCH ×4 (02:10→19:59)
[2018-12-06 04:09] LABS: HEMATOCRIT 22.8 % (42.0-52.0); HEMOGLOBIN 7.2 g/dl (13.5-17.5); MEAN CORPUSCULAR HEMOGLOBIN 26.7 pg (27.0-33.0); MEAN CORPUSCULAR HGB CONC 31.6 g/dl (32.0-36.5); MEAN CORPUSCULAR VOLUME 84.4 fl (80.0-96.0)
[2018-12-06 04:14] LABS: PLATELET COUNT, AUTOMATED 54 10^3/uL (150-450); WHITE BLOOD COUNT 0.8 10^3/uL (4.0-10.0)
[2018-12-06 04:23] LABS: EOS % 2.6 % (0.0-3.0); LYMPH % 7.9 % (24.0-44.0); MONO % 5.3 % (0.0-5.0); NEUTROPHILS # 0.5 10^3/uL (1.8-7.7); NEUTROPHILS % 64.5 % (36.0-66.0)
[2018-12-06 04:24] LABS: LYMPH # 0.1 10^3/uL (1.5-4.5)
--- NOTE | 2018-12-06 05:18 | PHACANCOPD ---
PHARMACY VANCOMYCIN DOSING Pt Demographics Demographics Patient Age:73 , Weight:113.600 , Gender: male Adjusted Body Weight Date: 12/04/18, Adjusted Body Weight: [92] Kg Vancomycin Vancomycin indication: febrile neutropenia Vancomycin Target Ranges: 10-20 mcg/ml Vancomycin Load Y/N: Yes Load Dose Date Time Vancomycin Load Dose: 1000mg Date: 12/03 Time: ~21:00 Vancomycin Dose Date: 12/04/18. Current Vancomycin Dose: [1g IV q12h @05] Intermittent Dosing?: No Labs Labs Laboratory Tests 12/06/18 00:46 Red Blood Count 2.69 L, Mean Corpuscular Volume 84.8, Mean Corpuscular Hemoglobin 27.1, Mean Corpuscular Hemoglobin Concent 32.0, Red Cell Distribution Width 19.3 H 12/06/18 03:58 Red Blood Count 2.70 L, Mean Corpuscular Volume 84.4, Mean Corpuscular Hemoglobin 26.7 L, Mean Corpuscular Hemoglobin Concent 31.6 L, Red Cell Distribution Width 19.5 H, Neutrophils (%) (Auto) 64.5, Lymphocytes (%) (Auto) 7.9 L, Monocytes (%) (Auto) 5.3 H, Eosinophils (%) (Auto) 2.6, Basophils (%) (Auto) 0.0, Neutrophils # (Auto) 0.5 L, Lymphocytes # (Auto) 0.1 L, Monocytes # (Auto) 0.0, Eosinophils # (Auto) 0.0, Basophils # (Auto) 0.0 Micro Microbiology 12/03/18 Blood Culture - Preliminary, Resulted No Growth after 48 hours. All Specime... 12/03/18 Blood Culture - Preliminary, Resulted No Growth after 48 hours. All Specime... 12/05/18 Stool Occult Blood (DANIEL) - Final, Complete 12/03/18 Respiratory Virus Panel (PCR) (DANIEL) - Final, Complete Creatinine Clearance Date:12/04/18. Creatinine Clearance: [41 ml/min using adjusted BW]. Assessment and Plan Maintaining Current Dose?: Yes Reason for dose change: No Dose Change Pharmacist Note Pharmacist Note Date: 12/06/18. Pharmacist note:Vancomycin trough drawn this morning@3:58 reported as 16.6-Will maintain current Vancomycin regimen ( 1 gram [id number]).Patient continues on Pip/Tazo. -Will continue to follow and make dose adjustments as needed. Date: 12/05/18. Pharmacist note: Pt trough came back this morning at 13.0mcg/ml after receiving 3 doses. The patient will continue 1g IV every 12 hours. Another trough is scheduled 12/06 @ 04 to monitor for accumulation. We will continue to monitor and adjust the dose as needed. Date: 12/04/18. Pharmacist note: pt has been started on Zosyn and Vancomycin for febrile neutropenia. He has not been on vancomycin at our facility in the past. He received his first dose of vancomycin 1g IV last evening, followed by 1g IV q12h which started ~8 hours later. SCr is about at baseline. Vancomycin trough scheduled for this afternoon was missed, therefore I have rescheduled his trough for tomorrow morning before the next dose. I have his vancomycin on hold until his trough comes back. Blood cultures are pending. We will continue to monitor and follow up with his level in the morning. DINAH WAITE PHARMACY Dec 06, 2018 05:18
[2018-12-06] MEDS: VANCOMYCIN HCL 1,000 MG, VIAL MATE ADAPTER 1 EACH in D5W 250 ML IV SCH ×2 (05:20→16:27)
[2018-12-06 05:37] LABS: CREATININE FOR GFR 1.74 MG/DL (0.70-1.30); GLOMERULAR FILTRATION RATE 41.3 (>42); POTASSIUM SERUM 3.5 MEQ/L (3.5-5.1)
[2018-12-06] MEDS: LR 1,000 ML IV SCH (06:15)
[2018-12-06] MEDS: PIPERACILLIN/TAZOBACTAM SOD 3.375 GM in D5W MINI-BAG PLUS 50 ML IV SCH ×4 (06:15→23:32)
[2018-12-06] MEDS: SERTRALINE 100 MG TAB PO SCH (08:20)
[2018-12-06] MEDS: ACYCLOVIR 200 MG CAPSULE PO SCH ×2 (08:20→20:18)
[2018-12-06] MEDS: FAMOTIDINE 20 MG TAB PO SCH (08:20)
[2018-12-06] MEDS: ALLOPURINOL 300 MG TAB PO SCH (08:21)
[2018-12-06] MEDS: FILGRASTIM 480 MCG/0.8 ML SYRINGE (J1442) SC SCH (10:23)
[2018-12-06] MEDS: METOPROLOL SUCC *XL* 25MG TAB (TopROL *XL*) PO SCH ×2 (10:23→20:18)
[2018-12-06 11:48] LABS: HEMOGLOBIN 7.6 g/dl (13.5-17.5)
[2018-12-06 12:26] LABS: MB/CK RELATIVE INDEX 4.62 (< OR =4); TROPONIN I 0.11 NG/ML (< 0.10)
--- NOTE | 2018-12-06 13:27 | IPNPDOC ---
Date Seen The patient was seen on 12/06/18. Progress Note SUBJECTIVE: Patient reports he is feeling better this morning. He did have some shortness of breath last night but it seems to have resolved this morning. He states that he felt much better after completing his blood transfusion yesterday. Otherwise, he is not having any abdominal pain, no headache or palpitations. He did have a positive fecal occult yesterday but he states he has not noticed any blood in his stools or dark tarry stools. Otherwise, he is eating well and continues to have BMs and urinates without issue. OBJECTIVE PHYSICAL EXAMINATION: VITAL SIGNS: Please see below. GENERAL: obese male appearing stated age laying in bed in no acute distress, calm, cooperative HEENT: EOMI, PERRLA, moist mucus membranes, no thyromegaly CARDIOVASCULAR: RRR without any murmurs/rubs/gallops RESPIRATORY: some faint rhonchi at the bases bilaterally, otherwise clear to auscultation ABDOMINAL: somewhat protuberant, soft, nontender to palpation, +BS EXTREMITIES: no clubbing/cyanosis/edema NEUROLOGICAL: CN 2-12 intact without any focal deficits appreciated PSYCHOLOGICAL: normal mood/affect, AAOx3 LABORATORY DATA, IMAGING STUDIES, MICROBIOLOGY: Please see below. DVT prophylaxis ordered?: TEDs/Sequentials ASSESSMENT AND PLAN: This is a 73 YO M with history of multiple myeloma currentl y undergoing treatment found to have neutropenic fever. He is admitted to the ICU for close observation and treatment with broad spectrum antibiotics. PROBLEMS: # Febrile Neutropenia: Patient has been afebrile since admission with current temperature 98.7. -WBC today unchanged from yesterday at 0.8 -Calculated ANC: 516, which denotes moderate neutropenia -Continue Vancomycin (day 3) and Zosyn (day 3) for broad spectrum coverage. Multiple myeloma patients are at higher risk for infections for encapsulated organisms. -Continue stress dose Decadron 4mg BID -Blood culture preliminary resulted with gram positive cocci in pairs/chains/clusters. Plan to repeat blood cultures today -Patient found to be tachycardic at rest this AM. Metoprolol 25mg BID wit hold parameters (hold for sBP<100, HR<60) # Anemia and pancytopenia 2/2 chemotherapy: -s/p transfusion 2UPRBCs yesterday, another ordered for today, as Hgb less than target 8.0 -Hgb 7.2 today from 7.3 yesterday, which appropriately increased after transfusion -Stool occult positive yesterday. Patient is on chronic steroids so there is a possibility of stress ulcer on differential. He is not having hemoptysis/hematemesis or any obvious BRBPR or darkened stools. Will continue to monitor. Do not suspect this is 2/2 GI bleed # Multiple myeloma: current treatment regimen Revlimid and Daratumumab -Oncology consulted. Appreciate recommendations # Stroke-like symptoms prior to admission: appear to have resolved -Head CT negative for any intracranial abnormality -Per oncology, patient is on chronic steroids which can cause proximal muscle weakness. No clinical signs at this point. Will continue to monitor # History of DVT: -Currently holding Eliquis 2/2 suspected ulcer vs GIB. Patient is using TEDs/Sequentials at this time for DVT prophylaxis. # History of COPD: -Continue scheduled DuoNebs +PRN for shortness of breath # History of Gout: -Continue Allopurinol # HLD: -Continue Lipitor # History of depression: -Continue Zoloft # BPH: -Continue Flomax DISPOSITION: Pending clinical improvement VS, I&O, 24H, [facility] Vital Signs/I&O Vital Signs Date Time Temp Pulse Resp B/P (MAP) Pulse Ox O2 Delivery O2 Flow Rate FiO2 12/06/18 08:00 2.0 12/06/18 08:00 98.7 148 22 100/66 (77) 98 12/03/18 18:42 Nasal Cannula I&O- Last 24 Hours up to 6 AM 12/06/18 06:00 Intake Total 3726 ml Output Total 1850 ml Balance 1876 ml Laboratory Data 24H LABS Laboratory Tests 2 12/06/18 00:46: Nucleated Red Blood Cells % (auto) 3.8H 12/06/18 03:58: Nucleated Red Blood Cells % (auto) 3.9H, Immature Granulocyte % (Auto) 19.7H, White Blood Count 0.8*L, Red Blood Count 2.70L, Hemoglobin 7.2L, Hematocrit 22.8L, Mean Corpuscular Volume 84.4, Mean Corpuscular Hemoglobin 26.7L, Mean Corpuscular Hemoglobin Concent 31.6L, Red Cell Distribution Width 19.5H, Platelet Count 54L, Neutrophils (%) (Auto) 64.5, Lymphocytes (%) (Auto) 7.9L, Monocytes (%) (Auto) 5.3H, Eosinophils (%) (Auto) 2.6, Basophils (%) (Auto) 0.0, Neutrophils # (Auto) 0.5L, Lymphocytes # (Auto) 0.1L, Monocytes # (Auto) 0.0, Eosinophils # (Auto) 0.0, Basophils # (Auto) 0.0, Anion Gap 9, Glomerular Filtration Rate 41.3L, Blood Urea Nitrogen 24H, Creatinine 1.74H, Sodium Level 141, Potassium Level 3.5, Chloride Level 112H, Carbon Dioxide Level 20L, Calcium Level 7.0L, Vancomycin Level Trough 16.6 CBC/BMP Laboratory Tests 12/06/18 00:46 Red Blood Count 2.69 L, Mean Corpuscular Volume 84.8, Mean Corpuscular Hemoglobin 27.1, Mean Corpuscular Hemoglobin Concent 32.0, Red Cell Distribution Width 19.3 H 12/06/18 03:58 Red Blood Count 2.70 L, Mean Corpuscular Volume 84.4, Mean Corpuscular Hemoglobin 26.7 L, Mean Corpuscular Hemoglobin Concent 31.6 L, Red Cell Distribution Width 19.5 H, Neutrophils (%) (Auto) 64.5, Lymphocytes (%) (Auto) 7.9 L, Monocytes (%) (Auto) 5.3 H, Eosinophils (%) (Auto) 2.6, Basophils (%) (Auto) 0.0, Neutrophils # (Auto) 0.5 L, Lymphocytes # (Auto) 0.1 L, Monocytes # (Auto) 0.0, Eosinophils # (Auto) 0.0, Basophils # (Auto) 0.0, Calcium Level 7.0 L Microbiology Microbiology 12/03/18 Blood Culture - Preliminary, Resulted No Growth after 48 hours. All Specime... 12/03/18 Blood Culture - Preliminary, Resulted No Growth after 48 hours. All Specime... 12/05/18 Stool Occult Blood (DANIEL) - Final, Complete 12/03/18 Respiratory Virus Panel (PCR) (DANIEL) - Final, Complete GME ATTESTATION GME ATTESTATION My faculty preceptor for this patient encounter was physically present during the encounter and was fully available. All aspects of the patient interview, examination, medical decision making process, and medical care plan development were reviewed and approved by the faculty preceptor. The faculty preceptor is aware and concurs with the plan as stated in the body of this note and will attest to such by his/her cosignature. BABITA HAJI MD Dec 06, 2018 09:47
[2018-12-06] MEDS ORDERED: REVL10CA2 PO (16:17)
[2018-12-06 16:40] LABS: C REACTIVE PROTEIN QUANTITATIV 6.74 MG/DL (0.00-0.30)
[2018-12-06 18:44] LABS: ERYTHROCYTE SEDIMENTATION RATE 106 mm/hr (0-20)
[2018-12-06] MEDS: TAMSULOSIN 0.4 MG CAP PO SCH (20:18)
[2018-12-06] MEDS: ATORVASTATIN 20 MG TAB PO SCH (20:18)
[2018-12-07] VITALS (7 sets, daily range): BP systolic 100–184; BP diastolic 62–86
[2018-12-07] MEDS: IPRATROPIUM 0.5MG/ALBUTEROL 2.5MG INH SOL UD 3ML (DUONEB)(J7620) NEB SCH ×4 (01:52→20:00)
[2018-12-07] MEDS: LR 1,000 ML IV SCH (02:00)
[2018-12-07 04:35] LABS: BASO % 0.9 % (0.0-1.0); EOS % 0.9 % (0.0-3.0); HEMATOCRIT 26.1 % (42.0-52.0); HEMOGLOBIN 8.3 g/dl (13.5-17.5); LYMPH % 9.3 % (24.0-44.0); MEAN CORPUSCULAR HEMOGLOBIN 25.8 pg (27.0-33.0); MEAN CORPUSCULAR HGB CONC 31.8 g/dl (32.0-36.5); MEAN CORPUSCULAR VOLUME 81.1 fl (80.0-96.0); MONO # 0.1 10^3/uL (0.0-0.8); MONO % 10.3 % (0.0-5.0); NEUTROPHILS % 77.7 % (36.0-66.0); RED BLOOD COUNT 3.22 10^6/uL (4.30-6.10)
[2018-12-07 04:42] LABS: LYMPH # 0.1 10^3/uL (1.5-4.5); NEUTROPHILS # 0.8 10^3/uL (1.8-7.7); PLATELET COUNT, AUTOMATED 47 10^3/uL (150-450); WHITE BLOOD COUNT 1.1 10^3/uL (4.0-10.0)
[2018-12-07 04:53] LABS: C REACTIVE PROTEIN QUANTITATIV 4.14 MG/DL (0.00-0.30); CALCIUM LEVEL 7.9 MG/DL (8.8-10.2); CREATININE FOR GFR 1.72 MG/DL (0.70-1.30); GLOMERULAR FILTRATION RATE 41.8 (>42); POTASSIUM SERUM 3.9 MEQ/L (3.5-5.1)
[2018-12-07] MEDS: VANCOMYCIN HCL 1,000 MG, VIAL MATE ADAPTER 1 EACH in D5W 250 ML IV SCH ×2 (05:02→17:22)
[2018-12-07 05:33] LABS: ERYTHROCYTE SEDIMENTATION RATE 66 mm/hr (0-20)
[2018-12-07] MEDS: PIPERACILLIN/TAZOBACTAM SOD 3.375 GM in D5W MINI-BAG PLUS 50 ML IV SCH ×3 (06:07→18:32)
[2018-12-07] MEDS: METOPROLOL SUCC *XL* 25MG TAB (TopROL *XL*) PO SCH ×2 (09:31→20:54)
[2018-12-07] MEDS: FAMOTIDINE 20 MG TAB PO SCH (09:31)
[2018-12-07] MEDS: SERTRALINE 100 MG TAB PO SCH (09:31)
[2018-12-07] MEDS: ACYCLOVIR 200 MG CAPSULE PO SCH ×2 (09:32→20:52)
[2018-12-07] MEDS: ALLOPURINOL 300 MG TAB PO SCH (09:32)
--- NOTE | 2018-12-07 10:14 | IPNPDOC ---
Date Seen The patient was seen on 12/07/18. Progress Note SUBJECTIVE: The patient has been moved from the ICU to the PCU. He is laying flat sleeping this morning and reports that he is feeling better. He had a few episodes of diarrhea yesterday. He looks forward to being able to get out of bed and work with PT today. His breathing is better this morning and he feels his lower extremity edema has improved. Nursing is concerned about his Atrial flutter on this youth nutritional monitor despite him having a pacemaker. OBJECTIVE PHYSICAL EXAMINATION: VITAL SIGNS: Please see below. GENERAL: obese male appearing stated age laying in bed in no acute distress, calm, cooperative HEENT: EOMI, PERRLA, moist mucus membranes, no thyromegaly CARDIOVASCULAR: RRR without any murmurs/rubs/gallops RESPIRATORY: some faint rhonchi at the bases up to middle lobes bilaterally, otherwise clear to auscultation ABDOMINAL: somewhat protuberant, soft, nontender to palpation, +BS EXTREMITIES: no clubbing/cyanosis/edema NEUROLOGICAL: CN 2-12 intact without any focal deficits appreciated PSYCHOLOGICAL: normal mood/affect, AAOx3 LABORATORY DATA, IMAGING STUDIES, MICROBIOLOGY: Please see below. DVT prophylaxis ordered?: TEDs/Sequentials ASSESSMENT AND PLAN: This is a 73 YO M with history of multiple myeloma currently undergoing treatment found to have neutropenic fever. He continues on broad spectrum antibiotics. PROBLEMS: # Febrile Neutropenia: Patient has been afebrile since admission with current temperature 96.8. -WBC improved to 1.1 today from 0.8 -Calculated ANC yesterday: 516, which denotes moderate neutropenia -Continue Vancomycin (day 4) and Zosyn (day 4) for broad spectrum coverage. Multiple myeloma patients are at higher risk for infections for encapsulated organisms. -Continue stress dose Decadron 4mg BID -Blood cultures x2 preliminary resulted with gram positive cocci in pairs/chains/clusters -ESR trended down from 106 to 66 today; CRP down to 4.14 from 6.74 yesterday -Will order procalcitonin #Hx pacemaker: -Patient's HR continues to fluctuate and demonstrate atrial flutter/NSR/sinus tachy on continuous telemetry. -Cardiology ([facility]) called to discuss indications for pacemaker interrogation # Anemia and pancytopenia 2/2 chemotherapy: Stable -Hgb stable at 8.3 today # Multiple myeloma: current treatment regimen Revlimid and Daratumumab -Oncology consulted. Appreciate recommendations # Stroke-like symptoms prior to admission: appear to have resolved -Head CT negative for any intracranial abnormality -Per oncology, patient is on chronic steroids which can cause proximal muscle weakness. No clinical signs at this point. Will continue to monitor # History of DVT: -Currently holding Eliquis 2/2 suspected ulcer vs GIB. Patient is using TEDs/Sequentials at this time for DVT prophylaxis. # History of COPD: -Continue scheduled DuoNebs +PRN for shortness of breath # History of Gout: -Continue Allopurinol # HLD: -Continue Lipitor # History of depression: -Continue Zoloft # BPH: -Continue Flomax DISPOSITION: Pending clinical improvement VS, I&O, 24H, [facility] Vital Signs/I&O Vital Signs Date Time Temp Pulse Resp B/P (MAP) Pulse Ox O2 Delivery O2 Flow Rate FiO2 12/07/18 09:31 73 144/71 12/07/18 08:00 96.8 18 97 2.0 12/03/18 18:42 Nasal Cannula I&O- Last 24 Hours up to 6 AM 12/07/18 06:00 Intake Total 3670 ml Output Total 1750 ml Balance 1920 ml Laboratory Data 24H LABS Laboratory Tests 2 12/06/18 11:11: Erythrocyte Sedimentation Rate 106H, Total Creatine Kinase 65#, Creatine Kinase MB 3.0, Creatine Kinase MB Relative Index 4.62H, Troponin I 0.11H, C-Reactive Protein, Quantitative 6.74H 12/07/18 04:21: Erythrocyte Sedimentation Rate 66H, C-Reactive Protein, Quantitative 4.14H, Immature Granulocyte % (Auto) 0.9, White Blood Count 1.1L, Red Blood Count 3.22L, Hemoglobin 8.3L, Hematocrit 26.1L, Mean Corpuscular Volume 81.1, Mean Corpuscular Hemoglobin 25.8L, Mean Corpuscular Hemoglobin Concent 31.8L, Red Ce ll Distribution Width 22.2H, Platelet Count 47L, Neutrophils (%) (Auto) 77.7H, Lymphocytes (%) (Auto) 9.3L, Monocytes (%) (Auto) 10.3H, Eosinophils (%) (Auto) 0.9, Basophils (%) (Auto) 0.9, Neutrophils # (Auto) 0.8L, Lymphocytes # (Auto) 0.1L, Monocytes # (Auto) 0.1, Eosinophils # (Auto) 0.0, Basophils # (Auto) 0.0, Nucleated Red Blood Cells % (auto) 4.7H, Immature Platelet Fraction 3.7, Anion Gap 6L, Glomerular Filtration Rate 41.8L, Blood Urea Nitrogen 31H, Creatinine 1.72H, Sodium Level 140, Potassium Level 3.9, Chloride Level 112H, Carbon Dioxide Level 22, Calcium Level 7.9L CBC/BMP Laboratory Tests 12/06/18 11:11 12/07/18 04:21 Red Blood Count 3.22 L, Mean Corpuscular Volume 81.1, Mean Corpuscular Hemoglobin 25.8 L, Mean Corpuscular Hemoglobin Concent 31.8 L, Red Cell Distribution Width 22.2 H, Neutrophils (%) (Auto) 77.7 H, Lymphocytes (%) (Auto) 9.3 L, Monocytes (%) (Auto) 10.3 H, Eosinophils (%) (Auto) 0.9, Basophils (%) (Auto) 0.9, Neutrophils # (Auto) 0.8 L, Lymphocytes # (Auto) 0.1 L, Monocytes # (Auto) 0.1, Eosinophils # (Auto) 0.0, Basophils # (Auto) 0.0, Calcium Level 7.9 L Microbiology Microbiology 12/06/18 Blood Culture, Received Pending 12/06/18 Blood Culture, Received Pending 12/03/18 Blood Culture - Preliminary, Resulted No Growth after 72 hours. All specime... 12/03/18 Blood Culture - Preliminary, Resulted 12/05/18 Stool Occult Blood (DANIEL) - Final, Complete 12/03/18 Respiratory Virus Panel (PCR) (DANIEL) - Final, Complete GME ATTESTATION GME ATTESTATION My faculty preceptor for this patient encounter was physically present during the encounter and was fully available. All aspects of the patient interview, ex amination, medical decision making process, and medical care plan development were reviewed and approved by the faculty preceptor. The faculty preceptor is aware and concurs with the plan as stated in the body of this note and will attest to such by his/her cosignature. BABITA HAJI MD Dec 07, 2018 10:14
[2018-12-07] MEDS: FILGRASTIM 480 MCG/0.8 ML SYRINGE (J1442) SC SCH (10:59)
[2018-12-07] MEDS: TAMSULOSIN 0.4 MG CAP PO SCH (20:52)
[2018-12-07] MEDS: ATORVASTATIN 20 MG TAB PO SCH (20:53)
--- NOTE | 2018-12-07 21:17 | ECGEPIP ---
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
--- NOTE | 2018-12-07 21:34 | IPN ---
DATE: 12/07/2018 Date of : 1945 Age: 73 The patient was seen in the PCU room 22 at [facility] for Hematology/Oncology followup. Dr. Oliver has done an excellent consultation on the November already. To summarize Mr. Benitez has a very complex oncological history having had three documented malignancies. The patient has a h/o transitional cell carcinoma of the urinary bladder, status post transurethral resection for a papillary TCC May 15, 2002, grade I of III, 5 cm lesion, involvement of the upper right ureter and status post right nephroureterectomy and removal of cuff of the bladder. The patient also has history of diffuse large B-cell non-Hodgkin's lymphoma CD10 negative and BCL6 negative originating in the right testicle in 2016, Stage IIAE. Status post right transscrotal orchiectomy followed by six cycles of [facility] followed by also received intrathecal methotrexate and received radiation therapy to the scrotum, left testicle. Received para-aortic radiation and the patient has mentioned that his spine was biopsied at [facility] and they thought he had non-Hodgkin's lymphoma on the spine so we even received some spinal radiation from August 25 through September 24, [address] Emily Howard. The patient has two other Oncologists also at [facility] DrNicolas Walker and Dr. Ric Hyde. The malignancy that the patient continues to deal with at present has been multiple myeloma IgG lambda. Again, please see Dr. Oliver' excellent consult from December 04, 2018. The patient has had radiations to different areas for a fracture of the right femur also involved with myeloma, L5 biopsy March 2017 also showed involvement with myeloma, so there is a lot of radiation here in there the patient has received. It was a pathological fracture of the right hip. The patient has had surgical decompression T4, T5 and L3, L4, L5 followed by radiation also. The patient had has gone from different regimens as stated by Dr. Oliver and the latest treatment has been Daratumumab/Darzalex plus dexamethasone which the patient gets IV 20 mg with each treatment and Revlimid which is p.o. and the latest dose has been just 10 mg, 3 weeks on 1 week off. The latest dose of Daratumumab was on November 29, 2018 and the patient's is a nurse so she administers the Revlimid 3 weeks on 1 week off. Since the patient is a diabetic, he has not been receiving the full dexamethasone doses and he only gets it IV on the day of his Daratumumab. This admission was warranted on December 03, 2018 for neutropenic fever, extreme weakness and the patient had positive blood cultures. They did not grow at 24 hours. The blood grew out something after 3 days. It is not quite clear whether the cultures were drawn from the port or the venous, but there are two sets at least according to bacteriology that we spoke to which are growing gram-positive cocci in pairs, chains and clusters. Please note 2016 in April, the patient had MRSA infection and his MediPort on the right upper anterior chest had to be removed and a new one had to be placed on the left side. This was all at [facility]. The patient's white count was 400 total, hemoglobin was 7.6 on admission on the 03 of December and dropped to 5.9 the next day within 24 hours. The platelet christina at 47,000 today. The patient has been transfused with packed red blood cells and he also is receiving Neupogen daily 480 mcg subcu and he is on vancomycin and Zosyn. The patient initially was in the ICU and as of last night around 08:30 the patient was transferred to the PCU. The patient has underlying renal insufficiency, CKD, but he usually runs a GFR around 39-44 and on admission the patient did have a lower GFR but with hydration it has improved and the latest GFR is around 41.8. The patient's blood sugars have been well controlled. As far as the patient's myeloma the patient is not in complete remission, but his overall myeloma burden has decreased compared to what it was at one-time. The patient still has an IgG lambda monoclonal protein M spike, which is ranging around 0.4 grams per dL. The patient still spills Bence-Gonzales proteins in his urine but all of it is much improved as compared to what it was a year and a half ago. CONCURRENT DIAGNOSES Obesity. Dual chamber pacemaker December 2017 for third degree heart block. Hypertension. CKD stage III. Osteoarthritis of the knees. History of prior history of MRSA infection, MediPort removal from the right April 2016 [facility]. History of vitamin D deficiency. Carpal tunnel release COPD. History of gout. Tenosynovitis left foot. History of C diff infection in the past. Posterior tibial tendon repair January 2001. Right hip surgery for fracture pathological October 2017. Pilonidal cyst removal. Lumbar fusion March 2017. The bladder and testicle surgery and bone marrows all as stated above. Subjectively, Mr. Maza says he is feeling good now, much better than before. He was too weak. He could not even get off the bedroom floor the night he was admitted, but he does not recall having fevers or chills then and he does not have any now. His appetite is picking up he said. He knows where he is and he wants me to call his Tabatha because Tabatha is an excellent nurse and really takes care of Mr. Maza wonderfully which is one of the reasons why he has survived so many complicated situations and malignancies. The patient denies any headaches. Denies any purulent discharge from the left eye and this was questioned because the left eye is a bit congested. The patient admits that his mouth feels cruddy, but he is not having any difficulty swallowing he said. The patient denies any cough or phlegm production. Denies any anginal or pleuritic chest pain today. Denies any abdominal cramping. He did have a couple of loose bowel movements he said. The patient says his swelling on his feet is much improved since he has been in bed all the time. PHYSICAL EXAMINATION: On examination, Mr. Maza is awake, alert, oriented, afebrile 97.1, heart rate 77 per minute, respiratory rate 20 per minute, blood pressure 144/71, pulse ox was 97% on 2 liters nasal cannula. Conjunctiva pale on the right side, left side conjunctiva congested. It is not a subconjunctival hemorrhage as such. No icterus. Buccal mucosa shows significant oral candidiasis on the tongue and on both inner lining of the cheeks. The patient has just a couple of teeth left in his mouth. No adenopathy neck. No jugular venous distension. Lungs: With decreased air entry at both bases from poor inspiratory effort. Cardiovascular system without any murmurs, gallops or rubs. The patient has a pacemaker chest wall and the MediPort is on the left upper anterior chest wall. Abdomen is obese but soft. No guarding rigidity or tenderness. Bowel sounds are active. No pedal edema today. No clubbing or cyanosis. Skin: Turgor is good. No visible rash but the patient has a brush burn on the left forearm posterior aspect. He has old scabs on his right elbow. He has mild gynecomastia bilaterally. He has a huge scar of surgery around his lumbosacral spine from surgery. No petechiae seen. A few ecchymotic areas from venipuncture is noted. Skin: Turgor looks good. Speech is normal and at the present time no movements of the head were appreciated which Dr. Oliver noted on December 04, 2018. When asked of Mr. Maza what is his head movement that was noted, the patient said that he described it and he showed what it felt like and he says his tongue kept moving, his head kept moving and what looked almost like tardive dyskinesia. The patient does have drooping eyelids. IMPRESSION Mr. Maza's myeloma seems to be responding reasonably to the Daratumumab/ Revlimid/Darzalex combination however, we have been decreasing the Revlimid dose because of significant cytopenias. Patient obviously has poor marrow reserves in light of all the prior chemotherapies and radiations etc, that he has received. But since he is getting life threatening infections we would discontinue the Revlimid at this point and either leave the patient on Daratumumab / Darzalex alone and see if the serum and urine proteins stay stable or worsen. If they stay stable then we would leave him on those two drugs. If not, we might consider adding Pomalyst. For now the patient has received wonderful management already by the hospital staff. His neutropenia should be recovering in the next 4 or 5 days. Thrombocytopenia is taking a little longer which is of concern and worrisome and we will have to watch to make sure the patient does not wind up in DIC. He certainly is at the right setting for DIC. The patient also is at a risk for depletion of vitamin K dependent clotting factors in light of all the antibiotics and some degree of diarrhea. The patient has had C diff in the past and we hope we do not have a recurrence of that. The patient has had MRSA in the past. We will have to resolve whether the MediPort stays or MediPort needs to come out and would appreciate infectious diseases' consultants input while continuing the Zosyn and Vancomycin and the Neupogen for now. The patient's Eliquis, which he was on for DVT has been on hold since the patient has had GI bleeding and positive stools for blood and his hemoglobin did drop down almost overnight to 5.9. We would suggest coverage for fungal issues especially since the patient already has significant oral candidiasis either with Diflucan or nystatin depending on drug interactions. As far as the head movements that were noticed on admission which sounds more like tardive dyskinesia, today they are not obvious so it is hard to say in retrospect, but Zoloft has been reported to cause similar movements and disorders, sometimes they are irreversible. It is just a thought to consider. We appreciate your asking us to continue to participate in Mr. Maza's care while he is in the hospital. We will continue to follow the patient peripherally and also will continue to stay in touch with the patient's , WATSON Mays. cc: Ric Hyde MD
[2018-12-08] VITALS: BP 140/80
[2018-12-08] MEDS: PIPERACILLIN/TAZOBACTAM SOD 3.375 GM in D5W MINI-BAG PLUS 50 ML IV SCH ×4 (00:07→17:27)
[2018-12-08] MEDS: NYSTATIN 500,000 U/5 ML SUSP UDC SS SCH ×4 (00:07→17:27)
[2018-12-08] MEDS: IPRATROPIUM 0.5MG/ALBUTEROL 2.5MG INH SOL UD 3ML (DUONEB)(J7620) NEB SCH ×4 (02:00→20:00)
[2018-12-08] MEDS: LR 1,000 ML IV SCH (02:31)
[2018-12-08 04:00] VITALS: BP 130/88
[2018-12-08] MEDS: VANCOMYCIN HCL 1,000 MG, VIAL MATE ADAPTER 1 EACH in D5W 250 ML IV SCH ×2 (05:09→16:12)
[2018-12-08 05:34] LABS: HEMATOCRIT 26.6 % (42.0-52.0); HEMOGLOBIN 8.3 g/dl (13.5-17.5); LYMPH % 7.7 % (24.0-44.0); MEAN CORPUSCULAR HEMOGLOBIN 25.4 pg (27.0-33.0); MEAN CORPUSCULAR HGB CONC 31.2 g/dl (32.0-36.5); MEAN CORPUSCULAR VOLUME 81.3 fl (80.0-96.0); MONO # 0.1 10^3/uL (0.0-0.8); MONO % 12.1 % (0.0-5.0); NEUTROPHILS % 65.9 % (36.0-66.0); RED BLOOD COUNT 3.27 10^6/uL (4.30-6.10)
[2018-12-08 05:37] LABS: LYMPH # 0.1 10^3/uL (1.5-4.5); NEUTROPHILS # 0.6 10^3/uL (1.8-7.7); PLATELET COUNT, AUTOMATED 54 10^3/uL (150-450); WHITE BLOOD COUNT 0.9 10^3/uL (4.0-10.0)
[2018-12-08 05:47] LABS: CALCIUM LEVEL 7.5 MG/DL (8.8-10.2); CREATININE FOR GFR 1.77 MG/DL (0.70-1.30); GLOMERULAR FILTRATION RATE 40.5 (>42); POTASSIUM SERUM 3.8 MEQ/L (3.5-5.1)
[2018-12-08 08:00] VITALS: BP 135/89
[2018-12-08] MEDS: SERTRALINE 100 MG TAB PO SCH (09:35)
[2018-12-08] MEDS: ACYCLOVIR 200 MG CAPSULE PO SCH ×2 (09:35→21:24)
[2018-12-08] MEDS: FAMOTIDINE 20 MG TAB PO SCH (09:35)
[2018-12-08] MEDS: METOPROLOL SUCC *XL* 25MG TAB (TopROL *XL*) PO SCH ×2 (09:36→21:24)
[2018-12-08] MEDS: ALLOPURINOL 300 MG TAB PO SCH (09:36)
--- NOTE | 2018-12-08 10:15 | IPNPDOC ---
Date Seen The patient was seen on 12/08/18. Progress Note SUBJECTIVE: Patient reportedly had syncopal event yesterday and nursing reports a 2 sec pause and intermittent atrial flutter vs sinus bradycardia. Upon review of telemetry strips and consultation with Cardiology ([facility]), patient does have a history of atrial fibrillation and flutter and recently had pacemaker interrogated in early 09/2018 without any issues noted. Patient does remember syncopal event and states that he had been transferring to bed when he suddenly felt "detached" for a few seconds. He had stable vitals at this time and was unresponsive only for 2-3 seconds. He did not have any life-threatening arrhythmias at that time. This morning he reports he feels much better than he has in the past few days. He is not having any SOB, no n/v/d, no abdominal pain. OBJECTIVE PHYSICAL EXAMINATION: VITAL SIGNS: Please see below. GENERAL: obese male appearing stated age laying in bed in no acute distress, calm, cooperative HEENT: EOMI, PERRLA, moist mucus membranes, no thyromegaly CARDIOVASCULAR: RRR without any murmurs/rubs/gallops RESPIRATORY: some faint rhonchi at the bases up to middle lobes bilaterally, otherwise clear to auscultation ABDOMINAL: somewhat protuberant, soft, nontender to palpation, +BS EXTREMITIES: no clubbing/cyanosis/edema NEUROLOGICAL: CN 2-12 intact without any focal deficits appreciated PSYCHOLOGICAL: normal mood/affect, AAOx3 LABORATORY DATA, IMAGING STUDIES, MICROBIOLOGY: Please see below. DVT prophylaxis ordered?: TEDs/Sequentials ASSESSMENT AND PLAN: This is a 73 YO M with history of multiple myeloma currently undergoing treatment found to have neutropenic fever. Preliminary blood culture results demonstrate Streptococcus organism which is susceptible to Vancomycin. PROBLEMS: # Febrile Neutropenia: Patient has been afebrile since admission with current temperature 96.8. -WBC 0.9 today -Calculated ANC: 593, which denotes moderate neutropenia -Continue Vancomycin (day 5) and Zosyn (day 5) for broad spectrum coverage. First blood cultures positive for Streptococcus Infantarius, which is sensitive to Vancomycin -Continue stress dose Decadron 4mg BID -ESR trended down from 106 to 66; CRP down to 4.14 -Procalcitonin 0.46 #Hx pacemaker: -Per cardiology ([facility]), patient's fluctuation between atrial flutter and SR is a chronic issue. Continue to monitor # Anemia and pancytopenia 2/2 chemotherapy: Stable -Hgb stable at 8.3 today # Multiple myeloma: current treatment regimen Revlimid and Daratumumab -Oncology consulted. Appreciate recommendations -Plt count still low at 54, will continue to monitor -Nystatin Swish/swallow started for empiric candidiasis coverage # Stroke-like symptoms prior to admission: appear to have resolved -Head CT negative for any intracranial abnormality -Per oncology, patient is on chronic steroids which can cause proximal muscle weakness. No clinical signs at this point. Will continue to monitor -Symptoms appear to have resolved. # History of DVT: -Currently holding Eliquis 2/2 suspected ulcer vs GIB. Patient is using TEDs/Sequentials at this time for DVT prophylaxis. # History of COPD: -Continue scheduled DuoNebs +PRN for shortness of breath # History of Gout: -Continue Allopurinol # HLD: -Continue Lipitor # History of depression: -Continue Zoloft # BPH: -Continue Flomax DISPOSITION: Pending clinical improvement VS, I&O, 24H, [facility] Vital Signs/I&O Vital Signs Date Time Temp Pulse Resp B/P (MAP) Pulse Ox O2 Delivery O2 Flow Rate FiO2 12/08/18 09:36 71 135/89 12/08/18 08:00 97.0 18 95 1.0 12/03/18 18:42 Nasal Cannula I&O- Last 24 Hours up to 6 AM 12/08/18 06:00 Intake Total 1150 ml Output Total 0 ml Balance 1150 ml Laboratory Data 24H LABS Laboratory Tests 2 12/07/18 10:19: Procalcitonin 0.46 12/08/18 05:16: Immature Granulocyte % (Auto) 14.3H, White Blood Count 0.9*L, Red Blood Count 3.27L, Hemoglobin 8.3L, Hematocrit 26.6L, Mean Corpuscular Volume 81.3, Mean Corpuscular Hemoglobin 25.4L, Mean Corpuscular Hemoglobin Concent 31.2L, Red Cell Distribution Width 22.1H, Platelet Count 54L, Neutrophils (%) (Auto) 65.9, Lymphocytes (%) (Auto) 7.7L, Monocytes (%) (Auto) 12.1H, Eosinophils (%) (Auto) 0.0, Basophils (%) (Auto) 0.0, Neutrophils # (Auto) 0.6L, Lymphocytes # (Auto) 0.1L, Monocytes # (Auto) 0.1, Eosinophils # (Auto) 0.0, Basophils # (Auto) 0.0, Nucleated Red Blood Cells % (auto) 11.0H, Immature Platelet Fraction 4.0, Anion Gap 9, Glomerular Filtration Rate 40.5L, Blood Urea Nitrogen 42H, Creatinine 1.77H, Sodium Level 141, Potassium Level 3.8, Chloride Level 112H, Carbon Dioxide Level 20L, Calcium Level 7.5L CBC/BMP Laboratory Tests 12/08/18 05:16 Red Blood Count 3.27 L, Mean Corpuscular Volume 81.3, Mean Corpuscular Hemoglobin 25.4 L, Mean Corpuscular Hemoglobin Concent 31.2 L, Red Cell Distribution Width 22.1 H, Neutrophils (%) (Auto) 65.9, Lymphocytes (%) (Auto) 7.7 L, Monocytes (%) (Auto) 12.1 H, Eosinophils (%) (Auto) 0.0, Basophils (%) (Auto) 0.0, Neutrophils # (Auto) 0.6 L, Lymphocytes # (Auto) 0.1 L, Monocytes # (Auto) 0.1, Eosinophils # (Auto) 0.0, Basophils # (Auto) 0.0, Calcium Level 7.5 L Microbiology Microbiology 12/06/18 Blood Culture - Preliminary, Resulted No growth after 24 hours . All specim... 12/06/18 Blood Culture - Preliminary, Resulted No growth after 24 hours . All specim... 12/03/18 Blood Culture - Preliminary, Resulted 12/03/18 Blood Culture - Final, Complete Streptococcus Infantarius Infa 12/05/18 Stool Occult Blood (DANIEL) - Final, Complete 12/03/18 Respiratory Virus Panel (PCR) (DANIEL) - Final, Complete GME ATTESTATION GME ATTESTATION My faculty preceptor for this patient encounter was physically present during the encounter and was fully available. All aspects of the patient interview, examination, medical decision making process, and medical care plan development were reviewed and approved by the faculty preceptor. The faculty preceptor is aw are and concurs with the plan as stated in the body of this note and will attest to such by his/her cosignature. BABITA HAJI MD Dec 08, 2018 10:15
[2018-12-08 12:00] VITALS: BP 158/72
[2018-12-08] MEDS: FILGRASTIM 480 MCG/0.8 ML SYRINGE (J1442) SC SCH (16:11)
--- NOTE | 2018-12-08 19:54 | PHACANCOPD ---
PHARMACY VANCOMYCIN DOSING Pt Demographics Demographics Patient Age:73 , Weight:120.500 , Gender: male Adjusted Body Weight Date: 12/04/18, Adjusted Body Weight: [92] Kg Vancomycin Vancomycin indication: febrile neutropenia Vancomycin Target Ranges: 10-20 mcg/ml Vancomycin Load Y/N: Yes Load Dose Date Time Vancomycin Load Dose: 1000mg Date: 12/03 Time: ~21:00 Vancomycin Dose Date: 12/04/18. Current Vancomycin Dose: [1g IV q12h @05] Intermittent Dosing?: No Labs Micro Microbiology 12/06/18 Blood Culture - Preliminary, Resulted No Growth after 48 hours. All Specime... 12/06/18 Blood Culture - Preliminary, Resulted No Growth after 48 hours. All Specime... 12/03/18 Blood Culture - Preliminary, Resulted 12/03/18 Blood Culture - Final, Complete Streptococcus Infantarius Infa 12/05/18 Stool Occult Blood (DANIEL) - Final, Complete 12/03/18 Respiratory Virus Panel (PCR) (DANIEL) - Final, Complete Creatinine Clearance Date:12/04/18. Creatinine Clearance: [41 ml/min using adjusted BW]. Assessment and Plan Maintaining Current Dose?: Yes Reason for dose change: No Dose Change Pharmacist Note Pharmacist Note 12/08/18: Vancomycin trough scheduled to be drawn today at 1600 was not drawn by nursing. Have re-timed trough level to instead be drawn tomorrow, 12/09/18, at 0400 to ensure we avoid supratherapeutic levels given the pts elevated BUN and apparent reduced output. We will continue to monitor and adjust dosing if needed. Date: 12/06/18. Pharmacist note:Vancomycin trough drawn this morning@3:58 reported as 16.6-Will maintain current Vancomycin regimen ( 1 gram [id number]).Patient continues on Pip/Tazo. -Will continue to follow and make dose adjustments as needed. Date: 12/05/18. Pharmacist note: Pt trough came back this morning at 13.0mcg/ml after receiving 3 doses. The patient will continue 1g IV every 12 hours. Another trough is scheduled 12/06 @ 04 to monitor for accumulation. We will continue to monitor and adjust the dose as needed. Date: 12/04/18. Pharmacist note: pt has been started on Zosyn and Vancomycin for febrile neutropenia. He has not been on vancomycin at our facility in the past. He received his first dose of vancomycin 1g IV last evening, followed by 1g IV q12h which started ~8 hours later. SCr is about at baseline. Vancomycin trough scheduled for this afternoon was missed, therefore I have rescheduled his trough for tomorrow morning before the next dose. I have his vancomycin on hold until his trough comes back. Blood cultures are pending. We will continue to monitor and follow up with his level in the morning. PHUC [facility] Dec 08, 2018 19:54
[2018-12-08 20:00] VITALS: BP 160/74
[2018-12-08] MEDS: TAMSULOSIN 0.4 MG CAP PO SCH (21:24)
[2018-12-08] MEDS: ATORVASTATIN 20 MG TAB PO SCH (21:24)
[2018-12-08 23:59] VITALS: BP 148/84
[2018-12-09] MEDS: NYSTATIN 500,000 U/5 ML SUSP UDC SS SCH ×4 (00:32→17:16)
[2018-12-09] MEDS: PIPERACILLIN/TAZOBACTAM SOD 3.375 GM in D5W MINI-BAG PLUS 50 ML IV SCH ×2 (00:32→06:19)
[2018-12-09] MEDS: IPRATROPIUM 0.5MG/ALBUTEROL 2.5MG INH SOL UD 3ML (DUONEB)(J7620) NEB SCH ×4 (01:04→19:48)
[2018-12-09 04:00] VITALS: BP 150/76
[2018-12-09 04:18] LABS: BASO % 0.8 % (0.0-1.0); HEMATOCRIT 26.1 % (42.0-52.0); HEMOGLOBIN 8.2 g/dl (13.5-17.5); LYMPH % 5.9 % (24.0-44.0); MEAN CORPUSCULAR HEMOGLOBIN 25.9 pg (27.0-33.0); MEAN CORPUSCULAR HGB CONC 31.4 g/dl (32.0-36.5); MEAN CORPUSCULAR VOLUME 82.3 fl (80.0-96.0); MONO # 0.2 10^3/uL (0.0-0.8); MONO % 12.7 % (0.0-5.0); NEUTROPHILS % 78.9 % (36.0-66.0); RED BLOOD COUNT 3.17 10^6/uL (4.30-6.10)
[2018-12-09 04:35] LABS: C REACTIVE PROTEIN QUANTITATIV 1.47 MG/DL (0.00-0.30); CALCIUM LEVEL 7.2 MG/DL (8.8-10.2); CREATININE FOR GFR 1.7 MG/DL (0.70-1.30); GLOMERULAR FILTRATION RATE 42.4 (>42)
[2018-12-09 04:37] LABS: LYMPH # 0.1 10^3/uL (1.5-4.5); NEUTROPHILS # 0.9 10^3/uL (1.8-7.7); PLATELET COUNT, AUTOMATED 49 10^3/uL (150-450); WHITE BLOOD COUNT 1.2 10^3/uL (4.0-10.0)
--- NOTE | 2018-12-09 05:14 | PHACANCOPD ---
PHARMACY VANCOMYCIN DOSING Pt Demographics Demographics Patient Age:73 , Weight:122.100 , Gender: male Adjusted Body Weight Date: 12/04/18, Adjusted Body Weight: [95.4] Kg Vancomycin Vancomycin indication: febrile neutropenia Vancomycin Target Ranges: 10-20 mcg/ml Vancomycin Load Y/N: Yes Load Dose Date Time Vancomycin Load Dose: 1000mg Date: 12/03 Time: ~21:00 Vancomycin Dose Date: 12/04/18. Current Vancomycin Dose: [1g IV Q18H] Intermittent Dosing?: No Labs Labs Laboratory Tests 12/08/18 05:16 Red Blood Count 3.27 L, Mean Corpuscular Volume 81.3, Mean Corpuscular Hemoglobin 25.4 L, Mean Corpuscular Hemoglobin Concent 31.2 L, Red Cell Distribution Width 22.1 H, Neutrophils (%) (Auto) 65.9, Lymphocytes (%) (Auto) 7.7 L, Monocytes (%) (Auto) 12.1 H, Eosinophils (%) (Auto) 0.0, Basophils (%) (Auto) 0.0, Neutrophils # (Auto) 0.6 L, Lymphocytes # (Auto) 0.1 L, Monocytes # (Auto) 0.1, Eosinophils # (Auto) 0.0, Basophils # (Auto) 0.0, Calcium Level 7.5 L 12/09/18 03:56 Red Blood Count 3.17 L, Mean Corpuscular Volume 82.3, Mean Corpuscular Hemoglobin 25.9 L, Mean Corpuscular Hemoglobin Concent 31.4 L, Red Cell Distribution Width 21.9 H, Neutrophils (%) (Auto) 78.9 H, Lymphocytes (%) (Auto) 5.9 L, Monocytes (%) (Auto) 12.7 H, Eosinophils (%) (Auto) 0.0, Basophils (%) (Auto) 0.8, Neutrophils # (Auto) 0.9 L, Lymphocytes # (Auto) 0.1 L, Monocytes # (Auto) 0.2, Eosinophils # (Auto) 0.0, Basophils # (Auto) 0.0, Calcium Level 7.2 L Micro Microbiology 12/06/18 Blood Culture - Preliminary, Resulted No Growth after 48 hours. All Specime... 12/06/18 Blood Culture - Preliminary, Resulted No Growth after 48 hours. All Specime... 12/03/18 Blood Culture - Preliminary, Resulted 12/03/18 Blood Culture - Final, Complete Streptococcus Infantarius Infa 12/05/18 Stool Occult Blood (DANIEL) - Final, Complete 12/03/18 Respiratory Virus Panel (PCR) (DANIEL) - Final, Complete Creatinine Clearance Date:12/09/18. Creatinine Clearance: [53].W/ADJUSTED bw OF 95.4KG Date:12/04/18. Creatinine Clearance: [41 ml/min using adjusted BW]. Assessment and Plan Maintaining Current Dose?: No Reason for dose change: Trough too high Pharmacist Note Pharmacist Note Date: 12/09/18. Pharmacist note:Vancomycin trough drawn this morning@3:56 reported as 22.9. (goal= 15-20).Will hold x 6 hours and begin Vancomycin 1 gram IV Q18h to begin12/09@1100. Next trough is scheduled for 12/10@0400;Will continue to follow 12/08/18: Vancomycin trough scheduled to be drawn today at 1600 was not drawn by nursing. Have re-timed trough level to instead be drawn tomorrow, 12/09/18, at 0400 to ensure we avoid supratherapeutic levels given the pts elevated BUN and apparent reduced output. We will continue to monitor and adjust dosing if needed. Date: 12/06/18. Pharmacist note:Vancomycin trough drawn this morning@3:58 reported as 16.6-Will maintain current Vancomycin regimen ( 1 gram [id number]).Patient continues on Pip/Tazo. -Will continue to follow and make dose adjustments as needed. Date: 12/05/18. Pharmacist note: Pt trough came back this morning at 13.0mcg/ml after receiving 3 doses. The patient will continue 1g IV every 12 hours. Another trough is scheduled 12/06 @ 04 to monitor for accumulation. We will continue to monitor and adjust the dose as needed. Date: 12/04/18. Pharmacist note: pt has been started on Zosyn and Vancomycin for febrile neutropenia. He has not been on vancomycin at our facility in the past. He received his first dose of vancomycin 1g IV last evening, followed by 1g IV q12h which started ~8 hours later. SCr is about at baseline. Vancomycin trough scheduled for this afternoon was missed, therefore I have rescheduled his trough for tomorrow morning before the next dose. I have his vancomycin on hold until his trough comes back. Blood cultures are pending. We will continue to monitor and follow up with his level in the morning. DINAH WAITE PHARMAC[facility] Dec 09, 2018 05:14
[2018-12-09 08:00] VITALS: BP 146/82
[2018-12-09] MEDS: METOPROLOL SUCC *XL* 25MG TAB (TopROL *XL*) PO SCH ×2 (09:00→21:26)
[2018-12-09] MEDS: FAMOTIDINE 20 MG TAB PO SCH (09:56)
[2018-12-09] MEDS: SERTRALINE 100 MG TAB PO SCH (09:56)
[2018-12-09] MEDS: SODIUM CHLORIDE 0.9% INJ 10 ML SYR IV SCH (09:57)
[2018-12-09] MEDS: ALLOPURINOL 300 MG TAB PO SCH (09:57)
[2018-12-09] MEDS: ACYCLOVIR 200 MG CAPSULE PO SCH ×2 (09:57→21:26)
[2018-12-09 10:21] LABS: ERYTHROCYTE SEDIMENTATION RATE 39 mm/hr (0-20)
--- NOTE | 2018-12-09 10:37 | IPNPDOC ---
Date Seen The patient was seen on 12/09/18. Progress Note SUBJECTIVE: Patient is seen sitting up next to his bed eating breakfast this morning. He states he is feeling well with no other episodes of syncope or arrhythmia reported by nursing. He has been eating/drinking well and having BMs/urinating without issue. OBJECTIVE PHYSICAL EXAMINATION: VITAL SIGNS: Please see below. GENERAL: obese male appearing stated age laying in bed in no acute distress, calm, cooperative HEENT: EOMI, PERRLA, moist mucus membranes, no thyromegaly CARDIOVASCULAR: RRR without any murmurs/rubs/gallops RESPIRATORY: some faint rhonchi at the bases up to middle lobes bilaterally, otherwise clear to auscultation ABDOMINAL: somewhat protuberant, soft, nontender to palpation, +BS EXTREMITIES: no clubbing/cyanosis/edema NEUROLOGICAL: CN 2-12 intact without any focal deficits appreciated PSYCHOLOGICAL: normal mood/affect, AAOx3 LABORATORY DATA, IMAGING STUDIES, MICROBIOLOGY: Please see below. DVT prophylaxis ordered?: TEDs/Sequentials ASSESSMENT AND PLAN: This is a 73 YO M with history of multiple myeloma currently undergoing treatment found to have neutropenic fever. Preliminary blood culture results demonstrate Streptococcus organism which is susceptible to Vancomycin. PROBLEMS: # Febrile Neutropenia: Patient has been afebrile since admission with current temperature 96.8. -WBC 1.2 today -Calculated ANC: 593, which denotes moderate neutropenia -Continue Vancomycin (day 6) and Zosyn (day 6) for broad spectrum coverage. First blood cultures positive for Streptococcus Infantarius (of the Streptococcus bovis group, type II), which is sensitive to Vancomycin -Echocardiogram ordered to evaluate for endocarditis -Continue stress dose Decadron 4mg BID -ESR trended down from 106 to 66; CRP down to 1.47 -Procalcitonin 0.46 #Hx pacemaker: -Per cardiology (Antecol), patient's fluctuation between atrial flutter and SR is a chronic issue. Continue to monitor # Anemia and pancytopenia 2/2 chemotherapy: Stable -Hgb stable at 8.2 today # Multiple myeloma: current treatment regimen Revlimid and Daratumumab -Oncology consulted. Appreciate recommendations -Plt count still low at 49, will continue to monitor -Nystatin Swish/swallow started for empiric candidiasis coverage # Stroke-like symptoms prior to admission: appear to have resolved -Head CT negative for any intracranial abnormality -Per oncology, patient is on chronic steroids which can cause proximal muscle weakness. No clinical signs at this point. Will continue to monitor -Symptoms appear to have resolved. # History of DVT: -Currently holding Eliquis 2/2 suspected ulcer vs GIB. Patient is using TEDs/Sequentials at this time for DVT prophylaxis. # History of COPD: -Continue scheduled DuoNebs +PRN for shortness of breath # History of Gout: -Continue Allopurinol # HLD: -Continue Lipitor # History of depression: -Continue Zoloft # BPH: -Continue Flomax DISPOSITION: Pending clinical improvement VS, I&O, 24H, [facility] Vital Signs/I&O Vital Signs Date Time Temp Pulse Resp B/P (MAP) Pulse Ox O2 Delivery O2 Flow Rate FiO2 12/09/18 08:00 97.4 52 18 146/82 (103) 95 1.0 12/03/18 18:42 Nasal Cannula I&O- Last 24 Hours up to 6 AM 12/09/18 05:59 Intake Total 1205 ml Output Total 1700 ml Balance -495 ml Laboratory Data 24H LABS Laboratory Tests 2 12/09/18 03:56: Immature Granulocyte % (Auto) 1.7, White Blood Count 1.2L, Red Blood Count 3.17L, Hemoglobin 8.2L, Hematocrit 26.1L, Mean Corpuscular Volume 82.3, Mean Corpuscular Hemoglobin 25.9L, Mean Corpuscular Hemoglobin Concent 31.4L, Red Cell Distribution Width 21.9H, Platelet Count 49L, Neutrophils (%) (Auto) 78.9H, Lymphocytes (%) (Auto) 5.9L, Monocytes (%) (Auto) 12.7H, Eosinophils (%) (Auto) 0.0, Basophils (%) (Auto) 0.8, Neutrophils # (Auto) 0.9L, Lymphocytes # (Auto) 0.1L, Monocytes # (Auto) 0.2, Eosinophils # (Auto) 0.0, Basophils # (Auto) 0.0, Nucleated Red Blood Cells % (auto) 11.0H, Anion Gap 7L, Glomerular Filtration Rate 42.4, Blood Urea Nitrogen 45H, Creatinine 1.70H, Sodium Level 140, Potassium Level 4.0, Chloride Level 112H, Carbon Dioxide Level 21, Calcium Level 7.2L, C-Reactive Protein, Quantitative 1.47H, Vancomycin Level Trough 22.9H CBC/BMP Laboratory Tests 12/09/18 03:56 Red Blood Count 3.17 L, Mean Corpuscular Volume 82.3, Mean Corpuscular Hemoglobin 25.9 L, Mean Corpuscular Hemoglobin Concent 31.4 L, Red Cell Distribution Width 21.9 H, Neutrophils (%) (Auto) 78.9 H, Lymphocytes (%) (Auto) 5.9 L, Monocytes (%) (Auto) 12.7 H, Eosinophils (%) (Auto) 0.0, Basophils (%) (Auto) 0.8, Neutrophils # (Auto) 0.9 L, Lymphocytes # (Auto) 0.1 L, Monocytes # (Auto) 0.2, Eosinophils # (Auto) 0.0, Basophils # (Auto) 0.0, Calcium Level 7.2 L Microbiology Microbiology 12/06/18 Blood Culture - Preliminary, Resulted No Growth after 48 hours. All Specime... 12/06/18 Blood Culture - Preliminary, Resulted No Growth after 48 hours. All Specime... 12/03/18 Blood Culture - Final, Complete Streptococcus Infantarius Infa 12/03/18 Blood Culture - Final, Complete Streptococcus Infantarius Infa 12/05/18 Stool Occult Blood (DANIEL) - Final, Complete 12/03/18 Respiratory Virus Panel (PCR) (DANIEL) - Final, Complete GME ATTESTATION GME ATTESTATION My faculty preceptor for this patient encounter was physically present during the encounter and was fully available. All aspects of the patient interview, examination, medical decision making process, and medical care plan development were reviewed and approved by the faculty preceptor. The faculty preceptor is aware and concurs with the plan as stated in the body of this note and will attest to such by his/her cosignature. BABITA HAJI MD Dec 09, 2018 09:26
[2018-12-09] MEDS: FILGRASTIM 480 MCG/0.8 ML SYRINGE (J1442) SC SCH (10:43)
[2018-12-09] MEDS ORDERED: VANCOMYCIN HCL 1,000 MG, VIAL MATE ADAPTER 1 EACH in D5W 250 ML IV SCH (11:00)
[2018-12-09] MEDS: cefTRIAXone SOD 2 GM in D5W MINI-BAG PLUS 50 ML IV SCH (11:48)
[2018-12-09 12:00] VITALS: BP 140/75
--- NOTE | 2018-12-09 12:11 | ECHO ---
DATE OF PROCEDURE: 12/08/2018 DATE OF : 1945 AGE: 73 HEIGHT: 72 inches WEIGHT: 264 pounds BODY SURFACE AREA: 2.39 m2 INPATIENT: Progressive care unit (PCU) Room 3222 REFERRING PHYSICIAN: Dr. Doc Mccray INDICATION: Bacteremia. MEASUREMENTS: 2-D Measurements: RV: 4.6 cm LV: 5.3 cm Septum: 1.2 cm Posterior wall: 1.1 cm Aortic root: 3.7 cm LA: 4.1 cm LVEF: 60% Doppler Measurements: AV: 1.4 m/s LVOT: 0.8 m/s LVOT diameter: 2.4 cm MV: E: 50, A: 63, EA ratio: 1.2 Early mitral deceleration time: 144 ms E prime: 6.6, A prime: 6.7, E/E prime ratio: 11.7 PCWP: 15.3 mmHg PV: 0.8 m/s Pulmonary artery acceleration time: 99 ms RVSP: 57 mmHg IVC: 2.4 cm COMMENTS: Sinus bradycardia versus atrially paced rhythm with spontaneous AV conduction and an incomplete right bundle branch block configuration. Technically challenging study in light of the patient's body habitus but diagnostically useful information was still obtained. M-mode and two-dimensional echocardiography was performed with pulsed, continuous wave, color flow and tissue Doppler studies. Normal left ventricular size with borderline left ventricular hypertrophy. Normal wall motion. Mildly dilated left atrium with pseudonormalized left ventricular filling pattern and estimated mean left atrial pressure at least mildly increased. Mildly dilated right heart chambers with slight right ventricular hypokinesis and Doppler evidence of at least moderately severe pulmonary hypertension. Mildly dilated inferior vena cava with reduced respiratory collapse in keeping with an elevated central venous pressure. Aortic valvular sclerosis with very mild insufficiency. Normal aortic root size. Slightly thickened mitral annulus without functional abnormality. Minuscule posterior pericardial effusion. Pacing leads could be visualized traversing right heart structures but no separate intracardiac mass. If endocarditis is seriously suspect, especially in patient with this body habitus, transesophageal echocardiography would be the investigation of choice. MTDD
[2018-12-09 16:00] VITALS: BP 142/82
[2018-12-09 20:00] VITALS: BP 133/61
[2018-12-09] MEDS: ATORVASTATIN 20 MG TAB PO SCH (21:26)
[2018-12-09] MEDS: TAMSULOSIN 0.4 MG CAP PO SCH (21:26)
[2018-12-09 23:59] VITALS: BP 160/69
[2018-12-10] VITALS (7 sets, daily range): BP systolic 138–158; BP diastolic 67–86
[2018-12-10] MEDS: NYSTATIN 500,000 U/5 ML SUSP UDC SS SCH ×5 (00:17→23:47)
[2018-12-10] MEDS: IPRATROPIUM 0.5MG/ALBUTEROL 2.5MG INH SOL UD 3ML (DUONEB)(J7620) NEB SCH ×4 (02:00→20:00)
[2018-12-10] MEDS: SODIUM CHLORIDE 0.9% INJ 10 ML SYR IV SCH (06:14)
[2018-12-10 06:36] LABS: HEMOGLOBIN 8.6 g/dl (13.5-17.5); MEAN CORPUSCULAR HEMOGLOBIN 26.4 pg (27.0-33.0); MEAN CORPUSCULAR HGB CONC 31.9 g/dl (32.0-36.5); MEAN CORPUSCULAR VOLUME 82.8 fl (80.0-96.0); RED BLOOD COUNT 3.26 10^6/uL (4.30-6.10); WHITE BLOOD COUNT 2.5 10^3/uL (4.0-10.0)
[2018-12-10 06:46] LABS: PLATELET COUNT, AUTOMATED 50 10^3/uL (150-450)
[2018-12-10 07:25] LABS: CALCIUM LEVEL 7.7 MG/DL (8.8-10.2); CREATININE FOR GFR 1.47 MG/DL (0.70-1.30); GLOMERULAR FILTRATION RATE 50.1 (>42); POTASSIUM SERUM 3.9 MEQ/L (3.5-5.1)
[2018-12-10 07:56] LABS: ATYPICAL LYMPH 1 % (0-5); LYMPHOCYTES 13 % (16-52); MONOCYTES 1 % (0-8); NEUTROPHILS 78 % (35-75); PLATELET ESTIMATE DECREASED (NORMAL)
[2018-12-10 07:57] LABS: ANISOCYTOSIS 1+; HYPOCHROMASIA 1+; MICROCYTOSIS 1+; OVALOCYTES 1+; POIKILOCYTOSIS 1+; SCHISTOCYTES 1+
[2018-12-10] MEDS: METOPROLOL SUCC *XL* 25MG TAB (TopROL *XL*) PO SCH ×2 (09:00→21:03)
--- NOTE | 2018-12-10 09:12 | IPNPDOC ---
Date Seen The patient was seen on 12/10/18. Progress Note SUBJECTIVE: Patient reports he is feeling much better this morning and is ready to go home. He is feeling well and feels he has gotten some of his energy back. He has yet to earn physical therapy clearance for safe discharge. Otherwise, he has no complaints. No overnight changes reported from nursing. OBJECTIVE PHYSICAL EXAMINATION: VITAL SIGNS: Please see below. GENERAL: obese male appearing stated age laying in bed in no acute distress, calm, cooperative HEENT: EOMI, PERRLA, moist mucus membranes, no thyromegaly CARDIOVASCULAR: RRR without any murmurs/rubs/gallops RESPIRATORY: clear to auscultation without any adventitious breath sounds appreciated ABDOMINAL: somewhat protuberant, soft, nontender to palpation, +BS EXTREMITIES: no clubbing/cyanosis/edema NEUROLOGICAL: CN 2-12 intact without any focal deficits appreciated PSYCHOLOGICAL: normal mood/affect, AAOx3 LABORATORY DATA, IMAGING STUDIES, MICROBIOLOGY: Please see below. DVT prophylaxis ordered?: TEDs/Sequentials ASSESSMENT AND PLAN: This is a 73 YO M with history of multiple myeloma currently undergoing treatment found to have neutropenic fever. Preliminary blood culture results demonstrate Streptococcus organism which is susceptible to Vancomycin. PROBLEMS: # Febrile Neutropenia: Patient has been afebrile since admission and continues to be afebrile. -WBC improved to 2.5 today -Calculated ANC: 214, which denotes current low risk neutropenia -s/p 6 days of Vanc/Zosyn. Antibiotic coverage changed to Ceftriaxone. First blood cultures positive for Streptococcus Infantarius (of the Streptococcus bovis group, type II) -Echocardiogram negative for endocarditis, although if high suspicion it was recommended to order ISMAEL. -Continue stress dose Decadron 4mg BID -ESR trended down from 66 to 39; CRP down to 1.47 -Procalcitonin 0.46 #Hx pacemaker: -Per cardiology (Antecol), patient's fluctuation between atrial flutter and SR is a chronic issue. Continue to monitor # Anemia and pancytopenia 2/2 chemotherapy: Stable -Hgb stable at 8.6 today # Multiple myeloma: current treatment regimen Revlimid and Daratumumab -Oncology consulted. Appreciate recommendations -Plt count still low at 50, will continue to monitor -Nystatin Swish/swallow started for empiric candidiasis coverage # Stroke-like symptoms prior to admission: appear to have resolved -Head CT negative for any intracranial abnormality -Per oncology, patient is on chronic steroids which can cause proximal muscle weakness. No clinical signs at this point. Will continue to monitor -Symptoms appear to have resolved. # History of DVT: -Currently holding Eliquis 2/2 suspected ulcer vs GIB. Patient is using TEDs/Sequentials at this time for DVT prophylaxis. # History of COPD: -Continue scheduled DuoNebs +PRN for shortness of breath # History of Gout: -Continue Allopurinol # HLD: -Continue Lipitor # History of depression: -Continue Zoloft # BPH: -Continue Flomax DISPOSITION: Pending clinical improvement and PT clearance VS, I&O, 24H, Fishbone Vital Signs/I&O Vital Signs Date Time Temp Pulse Resp B/P (MAP) Pulse Ox O2 Delivery O2 Flow Rate FiO2 12/10/18 08:00 97.0 57 18 147/77 (100) 99 1.0 I&O- Last 24 Hours up to 6 AM 12/10/18 06:00 Intake Total 1490 ml Output Total 650 ml Balance 840 ml Laboratory Data 24H LABS Laboratory Tests 2 12/10/18 06:12: Immature Granulocyte % (Auto) , White Blood Count 2.5L, Red Blood Count 3.26L, Hemoglobin 8.6L, Hematocrit 27.0L, Mean Corpuscular Volume 82.8, Mean Corpuscular Hemoglobin 26.4L, Mean Corpuscular Hemoglobin Concent 31.9L, Red Cell Distribution Width 21.7H, Platelet Count 50L, Lymphocytes # (Auto) , Nucleated Red Blood Cells % (auto) 5.2H, Neutrophils 78H, Band Neutrophils 7, Lymphocytes (Manual) 13L, Monocytes (Manual) 1, Atypical Lymphocytes 1, Platelet Estimate DECREASED, Immature Platelet Fraction 4.8, Hypochromasia 1+, Poikilocytosis 1+, Anisocytosis 1+, Microcytosis 1+, Ovalocytes 1+, Schistocytes 1+, Anion Gap 11, Glomerular Filtration Rate 50.1, Blood Urea Nitrogen 42H, Creatinine 1.47H, Sodium Level 141, Potassium Level 3.9, Chloride Level 111H, Carbon Dioxide Level 19L, Calcium Level 7.7L CBC/BMP Laboratory Tests 12/10/18 06:12 Red Blood Count 3.26 L, Mean Corpuscular Volume 82.8, Mean Corpuscular Hemoglobin 26.4 L, Mean Corpuscular Hemoglobin Concent 31.9 L, Red Cell Distri bution Width 21.7 H, Lymphocytes # (Auto) , Calcium Level 7.7 L Microbiology Microbiology 12/06/18 Blood Culture - Preliminary, Resulted No Growth after 72 hours. All specime... 12/06/18 Blood Culture - Preliminary, Resulted No Growth after 72 hours. All specime... 12/03/18 Blood Culture - Final, Complete Streptococcus Infantarius Infa 12/03/18 Blood Culture - Final, Complete Streptococcus Infantarius Infa 12/05/18 Stool Occult Blood (DANIEL) - Final, Complete 12/03/18 Respiratory Virus Panel (PCR) (DANIEL) - Final, Complete GME ATTESTATION GME ATTESTATION My faculty preceptor for this patient encounter was physically present during the encounter and was fully available. All aspects of the patient interview, examination, medical decision making process, and medical care plan development were reviewed and approved by the faculty preceptor. The faculty preceptor is aware and concurs with the plan as stated in the body of this note and will attest to such by his/her cosignature. BABITA HAJI MD Dec 10, 2018 09:12
[2018-12-10] MEDS: ACYCLOVIR 200 MG CAPSULE PO SCH ×2 (09:40→21:02)
[2018-12-10] MEDS: FAMOTIDINE 20 MG TAB PO SCH (09:40)
[2018-12-10] MEDS: SERTRALINE 100 MG TAB PO SCH (09:40)
[2018-12-10] MEDS: ALLOPURINOL 300 MG TAB PO SCH (09:41)
[2018-12-10] MEDS: FILGRASTIM 480 MCG/0.8 ML SYRINGE (J1442) SC SCH (09:42)
[2018-12-10] MEDS: cefTRIAXone SOD 2 GM in D5W MINI-BAG PLUS 50 ML IV SCH (12:29)
[2018-12-10] MEDS: ATORVASTATIN 20 MG TAB PO SCH (21:02)
[2018-12-10] MEDS: TAMSULOSIN 0.4 MG CAP PO SCH (21:02)
[2018-12-11] MEDS: IPRATROPIUM 0.5MG/ALBUTEROL 2.5MG INH SOL UD 3ML (DUONEB)(J7620) NEB SCH ×4 (02:00→19:41)
[2018-12-11] MEDS: NYSTATIN 500,000 U/5 ML SUSP UDC SS SCH ×3 (05:10→17:43)
[2018-12-11 06:00] VITALS: BP 164/88
[2018-12-11 07:43] LABS: HEMATOCRIT 28.5 % (42.0-52.0); HEMOGLOBIN 9.1 g/dl (13.5-17.5); MEAN CORPUSCULAR HEMOGLOBIN 26.2 pg (27.0-33.0); MEAN CORPUSCULAR HGB CONC 31.9 g/dl (32.0-36.5); MEAN CORPUSCULAR VOLUME 82.1 fl (80.0-96.0); RED BLOOD COUNT 3.47 10^6/uL (4.30-6.10); WHITE BLOOD COUNT 4.7 10^3/uL (4.0-10.0)
[2018-12-11 07:44] LABS: PLATELET COUNT, AUTOMATED 50 10^3/uL (150-450)
[2018-12-11 08:13] LABS: ALBUMIN 2.3 GM/DL (3.2-5.2); BILIRUBIN,TOTAL 0.5 MG/DL (0.2-1.0); CALCIUM LEVEL 7.8 MG/DL (8.8-10.2); CREATININE FOR GFR 1.39 MG/DL (0.70-1.30); GLOMERULAR FILTRATION RATE 53.5 (>42); POTASSIUM SERUM 4.2 MEQ/L (3.5-5.1); TOTAL PROTEIN 4.7 GM/DL (6.4-8.2)
[2018-12-11 08:55] LABS: ATYPICAL LYMPH 1 % (0-5); EOSINOPHILS 1 % (0-5); LYMPHOCYTES 7 % (16-52); MONOCYTES 2 % (0-8); NEUTROPHILS 84 % (35-75); PLATELET ESTIMATE MARKED DECREASE (NORMAL)
[2018-12-11 08:56] LABS: ANISOCYTOSIS 2+; OVALOCYTES 1+; POIKILOCYTOSIS 1+; TOXIC GRANULATION 1+
[2018-12-11 08:57] LABS: DOHLE BODIES 1+
[2018-12-11] MEDS: SODIUM CHLORIDE 0.9% INJ 10 ML SYR IV SCH (09:00)
[2018-12-11] MEDS: FILGRASTIM 480 MCG/0.8 ML SYRINGE (J1442) SC SCH ×2 (09:00→12:33)
[2018-12-11] MEDS: SERTRALINE 100 MG TAB PO SCH (09:21)
[2018-12-11] MEDS: ACYCLOVIR 200 MG CAPSULE PO SCH ×2 (09:21→21:20)
[2018-12-11] MEDS: ALLOPURINOL 300 MG TAB PO SCH (09:21)
[2018-12-11] MEDS: FAMOTIDINE 20 MG TAB PO SCH (09:21)
[2018-12-11] MEDS: METOPROLOL SUCC *XL* 25MG TAB (TopROL *XL*) PO SCH ×2 (09:23→21:20)
--- NOTE | 2018-12-11 11:27 | IPNPDOC ---
Text Note Date of Service The patient was seen on 12/11/18. NOTE SUBJECTIVE: Patient seen and examined at bedside. No acute overnight events r eported. Patient has no new medical complaints this morning. OBJECTIVE PHYSICAL EXAMINATION: VITAL SIGNS: Please see below. GENERAL: obese male appearing stated age laying in bed in no acute distress, calm, cooperative HEENT: EOMI, PERRLA, moist mucus membranes, no thyromegaly CARDIOVASCULAR: RRR without any murmurs/rubs/gallops RESPIRATORY: clear to auscultation without any adventitious breath sounds appreciated ABDOMINAL: somewhat protuberant, soft, nontender to palpation, +BS EXTREMITIES: peripheral edema NEUROLOGICAL: CN 2-12 intact without any focal deficits appreciated PSYCHOLOGICAL: normal mood/affect, AAOx3 LABORATORY DATA, IMAGING STUDIES, MICROBIOLOGY: Please see below. DVT prophylaxis ordered?: TEDs/Sequentials ASSESSMENT AND PLAN: This is a 73 YO M with history of multiple myeloma currently undergoing treatment found to have neutropenic fever. Preliminary blood culture results demonstrate Streptococcus organism which is susceptible to Vancomycin. PROBLEMS: # Febrile Neutropenia: Patient has been afebrile since admission and continues to be afebrile. -WBC improved to 4.7 today -Calculated ANC: 4183, continue neupogen - recommend target ANC 10,000 or as per oncology -continue Ceftriaxone. #Bacteremia - BCx +Streptococcus Infantarius (of the Streptococcus bovis group, type II) - concern for GI/colon source - to d/w GI regarding colonoscopy - ISMAEL with Dr. Gomes - repeat BCx negative - TTE negative for vegetations -Continue stress dose Decadron 4mg BID -trend ESR/CRP #Hx pacemaker: -Per cardiology (Cheryle), patient's fluctuation between atrial flutter and SR is a chronic issue. Continue to monitor # Anemia and pancytopenia 2/2 chemotherapy: Stable -Hgb stable at 9.1 today # Multiple myeloma: current treatment regimen Revlimid and Daratumumab -Oncology consulted. Appreciate recommendations -Plt count still low at 50, will continue to monitor -Nystatin Swish/swallow started for empiric candidiasis coverage # Stroke-like symptoms prior to admission: appear to have resolved -Head CT negative for any intracranial abnormality -Per oncology, patient is on chronic steroids which can cause proximal muscle weakness. No clinical signs at this point. Will continue to monitor -Symptoms appear to have resolved. # History of DVT: -Currently holding Eliquis 2/2 suspected ulcer vs GIB. Patient is using TEDs/Sequentials at this time for DVT prophylaxis. # History of COPD: -Continue scheduled DuoNebs +PRN for shortness of breath # History of Gout: -Continue Allopurinol # HLD: -Continue Lipitor # History of depression: -Continue Zoloft # BPH: -Continue Flomax DISPOSITION: Pending TTE, concern for endocarditis, IV Abx - consider dosage adjustment for endocarditis, currently treating bacteremia, ID when available, PT clearance VS,Fishbone, I+O VS, Fishbone, I+O Laboratory Tests 12/11/18 07:29 Red Blood Count 3.47 L, Mean Corpuscular Volume 82.1, Mean Corpuscular Hemoglobin 26.2 L, Mean Corpuscular Hemoglobin Concent 31.9 L, Red Cell Distribution Width 22.2 H, Lymphocytes # (Auto) , Calcium Level 7.8 L, Aspartate Amino Transf (AST/SGOT) 17, Alanine Aminotransferase (ALT/SGPT) 62, Alkaline Phosphatase 46, Total Bilirubin 0.5, Total Protein 4.7 L, Albumin 2.3 L Vital Signs Date Time Temp Pulse Resp B/P (MAP) Pulse Ox O2 Delivery O2 Flow Rate FiO2 12/11/18 10:54 2.0 12/11/18 09:23 64 140/70 12/11/18 06:00 97.0 20 96 I&O- Last 24 Hours up to 6 AM 12/11/18 06:00 Intake Total 1980 ml Output Total 2100 ml Balance -120 ml IFEANYI WICK MD Dec 11, 2018 11:27
[2018-12-11] MEDS: cefTRIAXone SOD 2 GM in D5W MINI-BAG PLUS 50 ML IV SCH (12:34)
[2018-12-11 14:00] VITALS: BP 140/70
[2018-12-11] MEDS: SODIUM CHLORIDE 0.9% INJ 10 ML SYR IV PRN (17:52)
[2018-12-11] MEDS: ATORVASTATIN 20 MG TAB PO SCH (21:20)
[2018-12-11] MEDS: TAMSULOSIN 0.4 MG CAP PO SCH (21:20)
[2018-12-11 22:00] VITALS: BP 164/72
[2018-12-12] MEDS: IPRATROPIUM 0.5MG/ALBUTEROL 2.5MG INH SOL UD 3ML (DUONEB)(J7620) NEB SCH ×4 (01:40→19:27)
[2018-12-12] MEDS: NYSTATIN 500,000 U/5 ML SUSP UDC SS SCH ×4 (05:11→17:28)
[2018-12-12 06:00] VITALS: BP 158/70
[2018-12-12 06:34] LABS: HEMATOCRIT 28.5 % (42.0-52.0); HEMOGLOBIN 8.9 g/dl (13.5-17.5); MEAN CORPUSCULAR HGB CONC 31.2 g/dl (32.0-36.5); MEAN CORPUSCULAR VOLUME 83.3 fl (80.0-96.0); RED BLOOD COUNT 3.42 10^6/uL (4.30-6.10); WHITE BLOOD COUNT 5.6 10^3/uL (4.0-10.0)
[2018-12-12 06:35] LABS: PLATELET COUNT, AUTOMATED 47 10^3/uL (150-450)
[2018-12-12 06:48] LABS: C REACTIVE PROTEIN QUANTITATIV 0.52 MG/DL (0.00-0.30); CALCIUM LEVEL 8.2 MG/DL (8.8-10.2); CREATININE FOR GFR 1.47 MG/DL (0.70-1.30); GLOMERULAR FILTRATION RATE 50.1 (>42)
[2018-12-12 07:37] LABS: LYMPHOCYTES 10 % (16-52); MONOCYTES 1 % (0-8); NEUTROPHILS 80 % (35-75)
[2018-12-12 07:38] LABS: ANISOCYTOSIS 1+; MICROCYTOSIS 1+; OVALOCYTES 1+; PLATELET ESTIMATE DECREASED (NORMAL); POIKILOCYTOSIS 1+; POLYCHROMASIA 1+
[2018-12-12] MEDS: ALLOPURINOL 300 MG TAB PO SCH (08:33)
[2018-12-12] MEDS: SERTRALINE 100 MG TAB PO SCH (08:33)
[2018-12-12] MEDS: METOPROLOL SUCC *XL* 25MG TAB (TopROL *XL*) PO SCH ×2 (08:33→22:38)
[2018-12-12] MEDS: ACYCLOVIR 200 MG CAPSULE PO SCH ×2 (08:34→22:37)
[2018-12-12] MEDS: FAMOTIDINE 20 MG TAB PO SCH (08:34)
[2018-12-12] MEDS ORDERED: APIXABAN 5 MG TAB (ELIQUIS) PO SCH (09:00)
[2018-12-12] MEDS: FILGRASTIM 480 MCG/0.8 ML SYRINGE (J1442) SC SCH (09:39)
[2018-12-12] MEDS: SODIUM CHLORIDE 0.9% INJ 10 ML SYR IV SCH (10:17)
[2018-12-12] MEDS ORDERED: FUROSEMIDE 40 MG/4 ML VIAL (J1940) IV ONE (12:00)
--- NOTE | 2018-12-12 12:11 | IPNPDOC ---
Date Seen The patient was seen on 12/12/18. Progress Note SUBJECTIVE: Patient reports he feels well this morning and wishes to go home soon. He states he is having no breathing issues, is eating/drinking well, and having BMs/urinating well. Nursing reports he is somewhat edematous this morning. OBJECTIVE PHYSICAL EXAMINATION: VITAL SIGNS: Please see below. GENERAL: obese male appearing stated age laying in bed in no acute distress, calm, cooperative HEENT: EOMI, PERRLA, moist mucus membranes, no thyromegaly CARDIOVASCULAR: RRR without any murmurs/rubs/gallops RESPIRATORY: clear to auscultation without any adventitious breath sounds appreciated ABDOMINAL: somewhat protuberant, soft, nontender to palpation, +BS EXTREMITIES: 2+ pitting edema in lower extremities bilaterally NEUROLOGICAL: CN 2-12 intact without any focal deficits appreciated PSYCHOLOGICAL: normal mood/affect, AAOx3 LABORATORY DATA, IMAGING STUDIES, MICROBIOLOGY: Please see below. DVT prophylaxis ordered?: TEDs/Sequentials ASSESSMENT AND PLAN: This is a 73 YO M with history of multiple myeloma currently undergoing treatment found to have neutropenic fever. Preliminary b lood culture results demonstrate Streptococcus organism which is susceptible to Vancomycin. PROBLEMS: # Febrile Neutropenia: afebrile. Continue Ceftriaxone for blood cultures positive for Streptococcus -WBC improved to 5.6 today with Neupogen -s/p 6 days of Vanc/Zosyn. -Echocardiogram negative for endocarditis -Continue stress dose Decadron 4mg BID -ESR trended down from 66 to 39; CRP down to 0.52 -Procalcitonin <0.10 -ISMAEL to rule out endocarditis -Colonoscopy for positive S. bovis in blood cultures #Hx pacemaker: -Per cardiology (Antecol), patient's fluctuation between atrial flutter and SR is a chronic issue. Continue to monitor # Anemia and pancytopenia 2/2 chemotherapy: Stable -Hgb stable at 8.9 today # Multiple myeloma: current treatment regimen Revlimid and Daratumumab -Oncology consulted. Appreciate recommendations -Plt count still low at 47, will continue to monitor -Nystatin Swish/swallow started for empiric candidiasis coverage # Stroke-like symptoms prior to admission: appear to have resolved -Head CT negative for any intracranial abnormality -Per oncology, patient is on chronic steroids which can cause proximal muscle weakness. No clinical signs at this point. Will continue to monitor -Symptoms appear to have resolved. # History of DVT: -restarted home Eliquis 5mg BID -TEDs/Sequentials at this time for DVT prophylaxis. # History of COPD: -Continue scheduled DuoNebs +PRN for shortness of breath # History of Gout: -Continue Allopurinol # HLD: -Continue Lipitor # History of depression: -Continue Zoloft # BPH: -Continue Flomax DISPOSITION: Pending clinical improvement and PT clearance VS, I&O, 24H, Fishbone Vital Signs/I&O Vital Signs Date Time Temp Pulse Resp B/P (MAP) Pulse Ox O2 Delivery O2 Flow Rate FiO2 12/12/18 08:33 84 158/70 12/12/18 06:00 98.0 20 95 12/11/18 23:12 1.0 I&O- Last 24 Hours up to 6 AM 12/12/18 06:00 Intake Total 1880 ml Output Total 1475 ml Balance 405 ml Laboratory Data 24H LABS Laboratory Tests 2 12/12/18 06:00: Immature Granulocyte % (Auto) , White Blood Count 5.6, Red Blood Count 3.42L, Hemoglobin 8.9L, Hematocrit 28.5L, Mean Corpuscular Volume 83.3, Mean Corpuscular Hemoglobin 26.0L, Mean Corpuscular Hemoglobin Concent 31.2L, Red Amee l Distribution Width 22.2H, Platelet Count 47L, Lymphocytes # (Auto) , Nucleated Red Blood Cells % (auto) 1.8H, Neutrophils 80H, Band Neutrophils 9, Lymphocytes (Manual) 10L, Monocytes (Manual) 1, Platelet Estimate DECREASED, Polychromasia 1+, Poikilocytosis 1+, Anisocytosis 1+, Microcytosis 1+, Ovalocytes 1+, Anion Gap 8, Glomerular Filtration Rate 50.1, Blood Urea Nitrogen 40H, Creatinine 1.47H, Sodium Level 138, Potassium Level 4.0, Chloride Level 110H, Carbon Dioxide Level 20L, Calcium Level 8.2L, C-Reactive Protein, Quantitative 0.52H CBC/BMP Laboratory Tests 12/12/18 06:00 Red Blood Count 3.42 L, Mean Corpuscular Volume 83.3, Mean Corpuscular Hemoglobin 26.0 L, Mean Corpuscular Hemoglobin Concent 31.2 L, Red Cell Distribution Width 22.2 H, Lymphocytes # (Auto) , Calcium Level 8.2 L Microbiology Microbiology 12/06/18 Blood Culture - Final, Complete NO GROWTH AFTER 5 DAYS 12/06/18 Blood Culture - Final, Complete NO GROWTH AFTER 5 DAYS 12/03/18 Blood Culture - Final, Complete Streptococcus Infantarius Infa 12/03/18 Blood Culture - Final, Complete Streptococcus Infantarius Infa 12/05/18 Stool Occult Blood (DANIEL) - Final, Complete 12/03/18 Respiratory Virus Panel (PCR) (DANIEL) - Final, Complete GME ATTESTATION GME ATTESTATION My faculty preceptor for this patient encounter was physically present during the encounter and was fully available. All aspects of the patient interview, examination, medical decision making process, and medical care plan development were reviewed and approved by the faculty preceptor. The faculty preceptor is aware and concurs with the plan as stated in the body of this note and will attest to such by his/her cosignature. BABITA HAJI MD Dec 12, 2018 11:42
[2018-12-12] MEDS: cefTRIAXone SOD 2 GM in D5W MINI-BAG PLUS 50 ML IV SCH (12:35)
[2018-12-12] MEDS: SODIUM CHLORIDE 0.9% INJ 10 ML SYR IV PRN (12:35)
[2018-12-12 14:00] VITALS: BP 142/70
[2018-12-12 15:16] LABS: ERYTHROCYTE SEDIMENTATION RATE 19 mm/hr (0-20)
[2018-12-12 20:00] VITALS: BP 169/72
[2018-12-12 22:00] VITALS: BP 169/72
[2018-12-12] MEDS: ATORVASTATIN 20 MG TAB PO SCH (22:37)
[2018-12-12] MEDS: TAMSULOSIN 0.4 MG CAP PO SCH (22:38)
[2018-12-13] VITALS (8 sets, daily range): BP systolic 115–165; BP diastolic 66–78
[2018-12-13] MEDS: NYSTATIN 500,000 U/5 ML SUSP UDC SS SCH ×4 (00:20→18:00)
[2018-12-13] MEDS: IPRATROPIUM 0.5MG/ALBUTEROL 2.5MG INH SOL UD 3ML (DUONEB)(J7620) NEB SCH ×4 (01:47→20:00)
[2018-12-13 06:37] LABS: HEMATOCRIT 28.9 % (42.0-52.0); HEMOGLOBIN 9.2 g/dl (13.5-17.5); MEAN CORPUSCULAR HEMOGLOBIN 26.1 pg (27.0-33.0); MEAN CORPUSCULAR HGB CONC 31.8 g/dl (32.0-36.5); MEAN CORPUSCULAR VOLUME 82.1 fl (80.0-96.0); RED BLOOD COUNT 3.52 10^6/uL (4.30-6.10)
[2018-12-13 06:44] LABS: PLATELET COUNT, AUTOMATED 51 10^3/uL (150-450)
[2018-12-13 06:57] LABS: CREATININE FOR GFR 1.38 MG/DL (0.70-1.30); GLOMERULAR FILTRATION RATE 53.9 (>42)
[2018-12-13 07:02] LABS: INR 1.18; PROTHROMBIN TIME 15.2 SECONDS (12.1-14.4)
[2018-12-13 07:03] LABS: PARTIAL THROMBOPLASTIN TIME 25.3 SECONDS (25.4-37.6)
[2018-12-13 08:00] LABS: LYMPHOCYTES 9 % (16-52); MONOCYTES 4 % (0-8); NEUTROPHILS 87 % (35-75)
[2018-12-13] MEDS ORDERED: MOM 30ML SUSPENSION UDC PO ONE (08:00)
[2018-12-13 08:01] LABS: ANISOCYTOSIS 2+; HYPOCHROMASIA 2+; PLATELET ESTIMATE MARKED DECREASE (NORMAL)
[2018-12-13] MEDS: ACYCLOVIR 200 MG CAPSULE PO SCH ×2 (11:00→20:56)
[2018-12-13] MEDS: FAMOTIDINE 20 MG TAB PO SCH (11:00)
[2018-12-13] MEDS: ALLOPURINOL 300 MG TAB PO SCH (11:01)
[2018-12-13] MEDS: METOPROLOL SUCC *XL* 25MG TAB (TopROL *XL*) PO SCH ×2 (11:01→20:56)
[2018-12-13] MEDS: SERTRALINE 100 MG TAB PO SCH (11:01)
[2018-12-13] MEDS: SODIUM CHLORIDE 0.9% INJ 10 ML SYR IV SCH (11:02)
--- NOTE | 2018-12-13 11:45 | IPNPDOC ---
Date Seen The patient was seen on 12/13/18. Progress Note SUBJECTIVE: Patient reports he feels well this morning. He is educated on the plan for ISMAEL and colonoscopy and the indications for doing so. All questions were answers. He had no changes overnight and no complaints this morning. OBJECTIVE PHYSICAL EXAMINATION: VITAL SIGNS: Please see below. GENERAL: obese male appearing stated age laying in bed in no acute distress, calm, cooperative HEENT: EOMI, PERRLA, moist mucus membranes, no thyromegaly CARDIOVASCULAR: RRR without any murmurs/rubs/gallops RESPIRATORY: clear to auscultation without any adventitious breath sounds appreciated ABDOMINAL: somewhat protuberant, soft, nontender to palpation, +BS EXTREMITIES: 1+ pitting edema in lower extremities bilaterally NEUROLOGICAL: CN 2-12 intact without any focal deficits appreciated PSYCHOLOGICAL: normal mood/affect, AAOx3 LABORATORY DATA, IMAGING STUDIES, MICROBIOLOGY: Please see below. DVT prophylaxis ordered?: TEDs/Sequentials ASSESSMENT AND PLAN: This is a 73 YO M with history of multiple myeloma currently undergoing treatment found to have neutropenic fever. Preliminary blood culture results demonstrate Streptococcus organism which is susceptible to Vancomycin. PROBLEMS: # Febrile Neutropenia: afebrile. Continue Ceftriaxone for blood cultures positive for Streptococcus infantarius -WBC improved to 6.0 today with Neupogen -s/p 6 days of Vanc/Zosyn. -Echocardiogram negative for endocarditis. Will go for ISMAEL -Continue stress dose Decadron 4mg BID -Procalcitonin <0.10 -Colonoscopy for positive S. bovis in blood cultures; bowel prep ordered #Hx pacemaker: -Per cardiology ([facility]), patient's fluctuation between atrial flutter and SR is a chronic issue. Continue to monitor # Anemia and pancytopenia 2/2 chemotherapy: Stable -Hgb stable at 9.2 today # Multiple myeloma: current treatment regimen Revlimid and Daratumumab -Oncology consulted. Appreciate recommendations -Haptoglobin, LDH, Fibrinogen pending -Plt count still low at 51, will continue to monitor -Nystatin Swish/swallow started for empiric candidiasis coverage # Stroke-like symptoms prior to admission: appear to have resolved -Head CT negative for any intracranial abnormality -Per oncology, patient is on chronic steroids which can cause proximal muscle weakness. No clinical signs at this point. Will continue to monitor -Symptoms appear to have resolved. # History of DVT: -restarted home Eliquis 5mg BID -TEDs/Sequentials at this time for DVT prophylaxis. # History of COPD: -Continue scheduled DuoNebs +PRN for shortness of breath # History of Gout: -Continue Allopurinol # HLD: -Continue Lipitor # History of depression: -Continue Zoloft # BPH: -Continue Flomax DISPOSITION: Pending clinical improvement and PT clearance VS, I&O, 24H, Fishbone Vital Signs/I&O Vital Signs Date Time Temp Pulse Resp B/P (MAP) Pulse Ox O2 Delivery O2 Flow Rate FiO2 12/13/18 11:01 68 150/78 12/13/18 09:15 98.3 20 95 12/11/18 23:12 1.0 I&O- Last 24 Hours up to 6 AM 12/13/18 06:00 Intake Total 3160 ml Output Total 2900 ml Balance 260 ml Laboratory Data 24H LABS Laboratory Tests 2 12/13/18 05:39: Immature Granulocyte % (Auto) , White Blood Count 6.0, Red Blood Count 3.52L, Hemoglobin 9.2L, Hematocrit 28.9L, Mean Corpuscular Volume 82.1, Mean Corpuscular Hemoglobin 26.1L, Mean Corpuscular Hemoglobin Concent 31.8L, Red Cell Distribution Width 22.5H, Platelet Count 51L, Lymphocytes # (Auto) , Nucleated Red Blood Cells % (auto) 1.0H, Neutrophils 87H, Lymphocytes (Manual) 9L, Monocytes (Manual) 4, Platelet Estimate MARKED DECREASE, Immature Platelet Fraction 8.0, Hypochromasia 2+, Anisocytosis 2+, Prothrombin Time 15.2H, P rothromb Time International Ratio 1.18, Activated Partial Thromboplast Time 25.3L, Fibrinogen 369, Anion Gap 9, Glomerular Filtration Rate 53.9, Blood Urea Nitrogen 43H, Creatinine 1.38H, Sodium Level 139, Potassium Level 4.0, Chloride Level 109H, Carbon Dioxide Level 21, Calcium Level 8.0L, Lactate Dehydrogenase 217 CBC/BMP Laboratory Tests 12/13/18 05:39 Red Blood Count 3.52 L, Mean Corpuscular Volume 82.1, Mean Corpuscular Hemoglobin 26.1 L, Mean Corpuscular Hemoglobin Concent 31.8 L, Red Cell Distribution Width 22.5 H, Lymphocytes # (Auto) , Calcium Level 8.0 L Microbiology Microbiology 12/06/18 Blood Culture - Final, Complete NO GROWTH AFTER 5 DAYS 12/06/18 Blood Culture - Final, Complete NO GROWTH AFTER 5 DAYS 12/03/18 Blood Culture - Final, Complete Streptococcus Infantarius Infa 12/03/18 Blood Culture - Final, Complete Streptococcus Infantarius Infa 12/05/18 Stool Occult Blood (DANIEL) - Final, Complete 12/03/18 Respiratory Virus Panel (PCR) (DANIEL) - Final, Complete GME ATTESTATION GME ATTESTATION My faculty preceptor for this patient encounter was physically present during the encounter and was fully available. All aspects of the patient interview, examination, medical decision making process, and medical care plan development were reviewed and approved by the faculty preceptor. The faculty preceptor is aware and concurs with the plan as stated in the body of this note and will attest to such by his/her cosignature. ATTENDING NOTE I, Deep Barksdale, have both independently examined this patient as well as reviewed the documentation. I have discussed in detail with the resident the findings and plan of treatment as documented in the residents documentation. I will continue to follow the patient and offer further guidance to the patients care as necessary during this hospital stay. BABITA HAJI MD Dec 13, 2018 11:45 DEEP BARKSDALE MD Dec 13, 2018 18:12
[2018-12-13] MEDS: cefTRIAXone SOD 2 GM in D5W MINI-BAG PLUS 50 ML IV SCH (12:06)
[2018-12-13] MEDS: FILGRASTIM 480 MCG/0.8 ML SYRINGE (J1442) SC SCH (12:16)
[2018-12-13] MEDS: SODIUM CHLORIDE 0.9% INJ 10 ML SYR IV PRN (13:07)
[2018-12-13] MEDS ORDERED: GOLYTELY SOLN 4000 ML BTL PO ONE (17:00)
--- NOTE | 2018-12-13 17:50 | IPN ---
DATE: 12/13/2018 REASON FOR FOLLOWUP: The patient is known to the hematology/oncology service, has IgG lambda multiple myeloma and has been recently on chemotherapy with Daratumumab, dexamethasone, Revlimid. Despite the patient's reduced dose of Revlimid to 10 mg daily for 21 days with one week off, the patient had not even completed the 21 days of Revlimid, according to his Tabatha who is an registered nurse (RN), and the patient developed neutropenic fever, was admitted to the hospital with blood cultures positive for Streptococcus infantarius infa as of 12/03/2018. The patient has been managed excellently by the house staff. His white count has improved to normal on Neupogen injections and withdrawal of all chemotherapy for now and the patient has been covered with Vancomycin, Zosyn, and Nystatin swish and swallow. The patient does have a MediPort which Mr. Maza tells us that today it was changed and a new one placed. The prior MediPort in the right upper chest had been removed and this present MediPort had been placed in [place] a few years ago when the patient had methicillin-resistant Staphylococcus aureus (MRSA) infection. Subjectively, Mr. Maza says he is feeling much better. He has been up in the chair, walked a little. His appetite is good. He has no nausea, vomiting. No fever. No chills. He really feels good and wants to go home. Denies any chest pain. Denies any burning in the urine. Denies any headaches. The only complaint he had is that his arms and legs are getting more and more swollen everyday and for awhile, he had no swelling at all. He is taking the Glucerna he said maybe once a day. PHYSICAL EXAMINATION: Mr. Maza is afebrile, awake, alert, oriented. His two nurses are in the room here with him. Vital signs are stable. The patient does have a pacemaker and has been seen by cardiology also this admission. Conjunctivae pale. Sclerae do not appear icteric. Buccal mucosa: The patient still has candidiasis. He has dentures. No adenopathy. Lungs: Decreased air both bases, poor effort. Cardiovascular system without murmurs, gallops or rubs. Rhythm was regular. Abdomen is soft. There is no guarding, rigidity, tenderness, but the patient does have bipedal edema and he has edema of both upper extremities, the left side seems to be more impressive and more edematous than the right. Getting anasarcous. Skin turgor is good. There is some ecchymosis on the forearms from venipunctures. No obvious skin abscesses noted. Laboratories reviewed with Mr. Maza, and with Mrs. Maza by phone. IMPRESSION: The patient, Mr. Camilo Maza, with a history of IgG lambda multiple myeloma and who has been admitted with neutropenic infection, bacteremia/sepsis with Streptococcus infantarius, has been showing daily improvement as per the laboratory results. His white count has returned to normal. If the ANC is more than 1500, we can discontinue the Neupogen injections at this time. The calcium has been running on the low side but the total proteins and albumins also have been low, which might be one of the reasons. The glomerular filtration rate (GFR) has definitely improved to almost 53.5, the best it has been in a long while. The hemoglobin has been stable around 9 after having been transfused already and we have spoken to the blood bank, [facility], and to Dr. Portillo, head of the blood bank, that patients on Daratumumab can have interference with the type and cross and can have false positive indirect antiglobulin test and the red cells have to be specially treated with dithiothreitol (DTT) to reach a conclusive diagnosis. If there is an emergency, obviously the patient can receive the least incompatible blood. The areas of concern that we are having are that the platelets are not recovering and it is taking much longer to recover and the second concern we are having is the nucleated red cells, what was the etiology of all those nucleated red cells in the periphery. ?? Stress of Sepsis, ?? GI Bleed. The NRBC count has come down, from almost 11.2% to 1.5% and that is a good sign. For completeness, we are going to check a prothrombin time (PT), international normalized ratio (INR), partial thromboplastin time (PTT), lactate dehydrogenase (LDH) and haptoglobin. SUGGESTIONS: Laboratories as above. The Neupogen can be discontinued at this point. Have already discussed with blood bank staff and Dr. Portillo about the Daratumumab's interference. Patient may be mistaken, it does not look like the port was removed or replaced, he had a ISMAEL done. Will await results and again would suggest ID input, does the port need replaced? Suggest protein supplements, it may help decrease the third spacing. Since Dr. Adams is on the case, he will address the low calcium most likely. When discharged, we would like to see the patient in the office within one week of discharge and as mentioned before in both Dr. Oliver and our note that we will be dropping the Revlimid from the patient's future treatment cycles and monitor the serum and urine proteins to see if the patient still has a responses just to the daratumumab and the dexamethasone. The patient's , Tabatha, has already been appraised about this. Once again, we appreciate all the assistance that has been given in putting Mr. Maza back on his feet and allowing us to participate in his care while he is in the hospital.
[2018-12-13] MEDS ORDERED: CETACAINE SPRAY 5GM As Ordered ONE (18:23)
[2018-12-13] MEDS ORDERED: PROPOFOL 200 MG/20 ML VIAL As Ordered ONE (18:29)
[2018-12-13] MEDS ORDERED: hydrALAZINE INJ 20 MG/ML VIAL As Ordered ONE (19:02)
[2018-12-13] MEDS ORDERED: ONDANSETRON 4MG/2ML VIAL (J2405) IV PRN (19:45)
[2018-12-13] MEDS ORDERED: fentaNYL 100 MCG/2 ML INJECTION (J3010) IV PRN (19:45)
[2018-12-13] MEDS ORDERED: HYDROMORPHONE HCL 0.5 MG/ 0.5 ML SYRINGE (J1170 PER 1) IV PRN (20:00)
--- NOTE | 2018-12-13 20:03 | T-ECHO ---
DATE OF PROCEDURE: 12/13/2018 REFERRING PHYSICIAN: Dr. Doc Mccray INDICATION: Streptococcus bacteremia. POSTPROCEDURE DIAGNOSIS: Infective endocarditis of the mitral valve. Mitral valve prolapse with moderate mitral regurgitation. PRINCIPAL FINDINGS: Small vegetations attached to the atrial side of the mitral valve. Mild mitral valve prolapse with moderate mitral regurgitation. Moderate aortic valve sclerosis with mild-moderate aortic regurgitation. Moderate tricuspid regurgitation. PROCEDURE PERFORMED: Transesophageal echocardiogram. PROCEDURE PERFORMED BY: Daniel Lobato MD VELVET CUTTER: None. SEDATION: Propofol per [employer]GER. DESCRIPTION OF PROCEDURE: The patient received topical Cetacaine [place] to the back of the pharynx. He received monitored anesthetic care with Propofol provided by the [employer] MANAGER. A bite block was placed in the patient's mouth. Esophageal intubation was accomplished by Dr. Lobato without difficulty using a Aftab three-dimensional transesophageal echocardiogram probe. This was a moderately technically difficult transesophageal echocardiogram. The left and right ventricles appeared normal in size and systolic function and without regional wall motion abnormalities. Both atria appear to be enlarged. Cardiac rhythm device leads were seen in the right atrium and coursing into the right atrium for one of the leads. No apparent vegetations attached to those portions of the cardiac rhythm management leads that could be visualized. Probable very small pericardial effusion. Aortic valve was 3-cusp and displayed moderate focal thickening and focal calcific deposits. Mild-moderate central aortic regurgitation was present. Tricuspid leaflets appeared structurally normal without vegetations. Moderate tricuspid regurgitation was present. There was focal prolapse involving the distal half of the anterior mitral leaflet. No flail segments. Multiple jets of mitral regurgitation were present with the combined total amount of mitral regurgitation judged to be moderate. Some very small stringy vegetations were seen on the atrial side of the mitral leaflet, mostly in association with the anterior mitral leaflet. Pulmonic valve was not well visualized. Distal aortic arch and descending thoracic aorta showed mild atheroma. CONCLUSIONS: 1. Small stringy vegetations in association with the atrial side of the mitral leaflets, especially the anterior mitral leaflet. Associated focal prolapse of the distal half of the anterior mitral leaflet. No flail segments. Multiple mitral regurgitation jets. Mitral regurgitation was judged to be moderate overall. 2. Moderate aortic valve sclerosis of a 3-cusp aortic valve. No aortic stenosis. Mild-moderate central aortic regurgitation. 3. Structurally normal appearing tricuspid leaflets. Moderate tricuspid regurgitation. 4. Probable biatrial enlargement. 5. Normal left and right ventricle size and systolic function. Left ventricular ejection fraction (LVEF) 60% by visual estimate. 6. Cardiac rhythm management leads identified in the right atrium and extending into the right ventricle. No vegetations attached to those portions of the cardiac rhythm management leads that could be visualized. 7. Probable very small pericardial effusion. 8. Mild atheroma involving the distal aortic arch and descending thoracic aorta.
[2018-12-13] MEDS: TAMSULOSIN 0.4 MG CAP PO SCH (20:55)
[2018-12-13] MEDS: ATORVASTATIN 20 MG TAB PO SCH (20:56)
[2018-12-14] VITALS (9 sets, daily range): BP systolic 123–147; BP diastolic 64–74
[2018-12-14] MEDS: NYSTATIN 500,000 U/5 ML SUSP UDC SS SCH ×4 (00:16→20:28)
[2018-12-14] MEDS: IPRATROPIUM 0.5MG/ALBUTEROL 2.5MG INH SOL UD 3ML (DUONEB)(J7620) NEB SCH ×4 (02:00→20:00)
[2018-12-14] MEDS ORDERED: GOLYTELY SOLN 4000 ML BTL PO ONE (06:00)
[2018-12-14 06:15] LABS: HEMATOCRIT 31.9 % (42.0-52.0); HEMOGLOBIN 9.9 g/dl (13.5-17.5); MEAN CORPUSCULAR HEMOGLOBIN 25.8 pg (27.0-33.0); MEAN CORPUSCULAR VOLUME 83.3 fl (80.0-96.0); RED BLOOD COUNT 3.83 10^6/uL (4.30-6.10); WHITE BLOOD COUNT 6.9 10^3/uL (4.0-10.0)
[2018-12-14 06:19] LABS: PLATELET COUNT, AUTOMATED 51 10^3/uL (150-450)
[2018-12-14 06:36] LABS: BLOOD UREA NITROGEN 38 MG/DL (7-18); CALCIUM LEVEL 7.5 MG/DL (8.8-10.2); CARBON DIOXIDE LEVEL 22 MEQ/L (21-32); CHLORIDE LEVEL 109 MEQ/L (98-107); CREATININE FOR GFR 1.23 MG/DL (0.70-1.30); GLOMERULAR FILTRATION RATE > 60.0 (>42); GLUCOSE, FASTING 97 MG/DL (70-100); POTASSIUM SERUM 3.5 MEQ/L (3.5-5.1); SODIUM LEVEL 141 MEQ/L (136-145)
[2018-12-14 06:54] LABS: LYMPHOCYTES 4 % (16-52); MONOCYTES 3 % (0-8); NEUTROPHILS 93 % (35-75); PLATELET ESTIMATE DECREASED (NORMAL)
[2018-12-14 06:55] LABS: ANISOCYTOSIS 4+; HYPOCHROMASIA 1+
[2018-12-14 06:56] LABS: POIKILOCYTOSIS 2+
[2018-12-14 06:57] LABS: SCHISTOCYTES 1+
[2018-12-14 06:58] LABS: DOHLE BODIES 1+
[2018-12-14] MEDS ORDERED: PROPOFOL 200 MG/20 ML VIAL As Ordered ONE ×3 (07:00→18:41)
[2018-12-14] MEDS ORDERED: LIDOCAINE 2% INJ 100 MG/5 ML SDV (FOR ANES.) As Ordered ONE (07:00)
[2018-12-14] MEDS: ACYCLOVIR 200 MG CAPSULE PO SCH ×2 (09:00→20:29)
[2018-12-14] MEDS: SERTRALINE 100 MG TAB PO SCH (09:00)
[2018-12-14] MEDS: FAMOTIDINE 20 MG TAB PO SCH (09:00)
[2018-12-14] MEDS: SODIUM CHLORIDE 0.9% INJ 10 ML SYR IV SCH (09:00)
[2018-12-14] MEDS: ALLOPURINOL 300 MG TAB PO SCH (09:00)
[2018-12-14] MEDS: METOPROLOL SUCC *XL* 25MG TAB (TopROL *XL*) PO SCH ×3 (09:00→20:29)
[2018-12-14] MEDS: FILGRASTIM 480 MCG/0.8 ML SYRINGE (J1442) SC SCH (11:14)
--- NOTE | 2018-12-14 11:49 | IPNPDOC ---
Date Seen The patient was seen on 12/14/18. Progress Note SUBJECTIVE: Patient has no complaints this morning. He underwent the ISMAEL yesterday and is currently doing bowel prep for planned colonoscopy today. He is agreeable to the plan. No changes overnight. OBJECTIVE PHYSICAL EXAMINATION: VITAL SIGNS: Please see below. GENERAL: obese male appearing stated age laying in bed in no acute distress, calm, cooperative HEENT: EOMI, PERRLA, moist mucus membranes, no thyromegaly CARDIOVASCULAR: RRR without any murmurs/rubs/gallops RESPIRATORY: clear to auscultation without any adventitious breath sounds appreciated ABDOMINAL: somewhat protuberant, soft, nontender to palpation, +BS EXTREMITIES: trace edema in lower extremities bilaterally NEUROLOGICAL: CN 2-12 intact without any focal deficits appreciated PSYCHOLOGICAL: normal mood/affect, AAOx3 LABORATORY DATA, IMAGING STUDIES, MICROBIOLOGY: Please see below. TRANSESOPHAGEAL ECHOCARDIOGRAM: CONCLUSIONS: 1. Small stringy vegetations in association with the atrial side of the mitral leaflets, especially the anterior mitral leaflet. Associated focal prolapse of the distal half of the anterior mitral leaflet. No flail segments. Multiple mitral regurgitation jets. Mitral regurgitation was judged to be moderate overall. 2. Moderate aortic valve sclerosis of a 3-cusp aortic valve. No aortic stenosis. Mild-moderate central aortic regurgitation. 3. Structurally normal appearing tricuspid leaflets. Moderate tricuspid regurgitation. 4. Probable biatrial enlargement. 5. Normal left and right ventricle size and systolic function. Left ventricular ejection fraction (LVEF) 60% by visual estimate. 6. Cardiac rhythm management leads identified in the right atrium and extending into the right ventricle. No vegetations attached to those portions of the cardiac rhythm management leads that could be visualized. 7. Probable very small pericardial effusion. 8. Mild atheroma involving the distal aortic arch and descending thoracic aorta. DVT prophylaxis ordered?: TEDs/Sequentials ASSESSMENT AND PLAN: This is a 73 YO M with history of multiple myeloma currently undergoing treatment found to have neutropenic fever. Blood culture is positive for Streptococcus organism (bovis type II) and patient has been found to have vegetations on his mitral valve. He will undergo a colonoscopy today. PROBLEMS: # Febrile Neutropenia: afebrile. Continue Ceftriaxone for blood cultures positive for Streptococcus infantarius -s/p 6 days of Vanc/Zosyn. -ISMAEL found small vegetations attached to atrial side of mitral valve with moderate mitral regurgitation, moderate aortic valve sclerosis -Continue stress dose Decadron 4mg BID -Procalcitonin <0.10 -Colonoscopy for positive S. bovis in blood cultures; bowel prep underway #Hx pacemaker: -Per cardiology ([facility]), patient's fluctuation between atrial flutter and SR is a chronic issue. Continue to monitor # Anemia and pancytopenia 2/2 chemotherapy: Stable -Hgb stable at 9.9 today -Neupogen stopped per Oncology # Multiple myeloma: current treatment regimen Revlimid and Daratumumab -Oncology consulted. Appreciate recommendations -Haptoglobin 212, LDH 217, Fibrinogen 369 -Plt count still low at 51, will continue to monitor -Nystatin Swish/swallow started for empiric candidiasis coverage # Stroke-like symptoms prior to admission: appear to have resolved -Head CT negative for any intracranial abnormality -Per oncology, patient is on chronic steroids which can cause proximal muscle weakness. No clinical signs at this point. Will continue to monitor -Symptoms appear to have resolved. # History of DVT: -Eliquis 5mg BID temporarily held for colonoscopy with Reindl today -TEDs/Sequentials at this time for DVT prophylaxis. # History of COPD: -Continue scheduled DuoNebs +PRN for shortness of breath # History of Gout: -Continue Allopurinol # HLD: -Continue Lipitor # History of depression: -Continue Zoloft # BPH: -Continue Flomax DISPOSITION: Pending clinical improvement and PT clearance A-FIB/CHADSVASC A-FIB History Current/History of A-Fib/PAF?: No VS, I&O, 24H, Fishbone Vital Signs/I&O Vital Signs Date Time Temp Pulse Resp B/P (MAP) Pulse Ox O2 Delivery O2 Flow Rate FiO2 12/14/18 06:00 98.6 60 18 141/70 (93) 96 12/13/18 19:45 10 I&O- Last 24 Hours up to 6 AM 12/14/18 06:00 Intake Total 930 ml Output Total 225 ml Balance 705 ml Laboratory Data 24H LABS Laboratory Tests 2 12/14/18 05:29: Immature Granulocyte % (Auto) , White Blood Count 6.9, Red Blood Count 3.83L, Hemoglobin 9.9L, Hematocrit 31.9L, Mean Corpuscular Volume 83.3, Mean Corpuscular Hemoglobin 25.8L, Mean Corpuscular Hemoglobin Concent 31.0L, Red Cell Distribution Width 23.3H, Platelet Count 51L, Lymphocytes # (Auto) , Nucleated Red Blood Cells % (auto) 0.4H, Neutrophils 93H, Lymphocytes (Manual) 4L, Monocytes (Manual) 3, Dohle Bodies 1+, Platelet Estimate DECREASED, Hypochromasia 1+, Poikilocytosis 2+, Basophilic Stippling 1+, Anisocytosis 4+, Schistocytes 1+, Anion Gap 10, Glomerular Filtration Rate > 60.0, Blood Urea Nitrogen 38H, Creatinine 1.23, Sodium Level 141, Potassium Level 3.5, Chloride Level 109H, Carbon Dioxide Level 22, Calcium Level 7.5L CBC/BMP Laboratory Tests 12/14/18 05:29 Red Blood Count 3.83 L, Mean Corpuscular Volume 83.3, Mean Corpuscular Hemoglobin 25.8 L, Mean Corpuscular Hemoglobin Concent 31.0 L, Red Cell Distribution Width 23.3 H, Lymphocytes # (Auto) , Calcium Level 7.5 L Microbiology Microbiology 12/06/18 Blood Culture - Final, Complete NO GROWTH AFTER 5 DAYS 12/06/18 Blood Culture - Final, Complete NO GROWTH AFTER 5 DAYS 12/05/18 Stool Occult Blood (DANIEL) - Final, Complete GME ATTESTATION GME ATTESTATION My faculty preceptor for this patient encounter was physically present during the encounter and was fully available. All aspects of the patient interview, examination, medical decision making process, and medical care plan development were reviewed and approved by the faculty preceptor. The faculty preceptor is aware and concurs with the plan as stated in the body of this note and will attest to such by his/her cosignature. ATTENDING NOTE I, Deep Barksdale, have both independently examined this patient as well as reviewed the documentation. I have discussed in detail with the resident the findings and plan of treatment as documented in the residents documentation. I will continue to follow the patient and offer further guidance to the patients care as necessary during this hospital stay. BABITA HAJI MD Dec 14, 2018 11:49 DEEP BARKSDALE MD Dec 14, 2018 18:09
[2018-12-14] MEDS ORDERED: cefTRIAXone SOD 2 GM VIAL (J0696) IM SCH (13:30)
--- NOTE | 2018-12-14 13:58 | REP ---
CT Head without contrast HISTORY: Confusion COMPARISON: 12/04/2018 Areas of decreased attenuation are present in the periventricular and subcortical white matter. This represents small-vessel ischemic disease. There is no intraparenchymal hemorrhage, acute infarct, mass or midline shift. The ventricular system and cortical sulci as well as subarachnoid space in the posterior fossa are dilated consistent with moderate volume loss. There is no extra cerebral collection. There is no fracture. There are multiple small lytic lesions throughout the calvarium. The visualized sinuses are clear. IMPRESSION: 1. Small vessel ischemic disease. 2. Moderate volume loss. 3. There are multiple small lytic lesions throughout the calvarium consistent with the patient's history of multiple myeloma. Electronically Signed by Doc Lovett MD 12/14/2018 01:49 P
[2018-12-14] MEDS ORDERED: ePHEDrine SULFATE 25 MG/5 ML(5MG/ML) SYRINGE As Ordered ONE (18:17)
--- NOTE | 2018-12-14 18:57 | ROOR ---
Patient Name: Camilo Maza Procedure Date: 12/14/2018 5:48 PM Date of : 1945 Age: 73 Room: [facility] Gender: Male Note Status: Finalized Procedure: Colonoscopy Indications: Change in bowel habits Providers: Daniel PACE MD Referring MD: JAX HAWKINS DO, 2. Inpatient 2. Inpatient Requesting Provider: Medicines: Monitored Anesthesia Care Complications: No immediate complications. Procedure: Pre-Anesthesia Assessment: - The heart rate, respiratory rate, oxygen saturations, blood pressure, adequacy of pulmonary ventilation, and response to care were monitored throughout the procedure. The Colonoscope was introduced through the anus and advanced to the cecum, identified by appendiceal orifice and ileocecal valve. The colonoscopy was performed without difficulty. The patient tolerated the procedure well. The quality of the bowel preparation was poor. Findings: The perianal and digital rectal examinations were normal. (Colon Prep was POOR, Inadequate Visualisation) A 10 mm polyp was found in the splenic flexure. The polyp was semi-sessile. The polyp was removed with a cold snare. Resection and retrieval were complete. To prevent bleeding after the polypectomy, one hemostatic clip was successfully placed. There was no bleeding at the end of the procedure. The exam was otherwise without abnormality on direct and retroflexion views. Impression: - (Colon Prep was POOR, Inadequate Visualisation) - One 10 mm polyp at the splenic flexure, removed with a cold snare. Resected and retrieved. Clip was placed. - The examination was otherwise normal on direct and retroflexion views. Recommendation: - Repeat colonoscopy tomorrow because the bowel preparation was poor. Daniel Pace MD Daniel PACE MD 12/14/2018 6:57:27 PM Electronically signed by Daniel PACE MD Number of Addenda: 0 Note Initiated On: 12/14/2018 5:48 PM Estimated Blood Loss: Estimated blood loss: none.
[2018-12-14] MEDS ORDERED: ONDANSETRON 4MG/2ML VIAL (J2405) IV PRN (19:15)
[2018-12-14] MEDS ORDERED: LR 1,000 ML IV SCH (19:15)
[2018-12-14] MEDS: cefTRIAXone SOD 2 GM in D5W MINI-BAG PLUS 50 ML IV SCH (20:28)
[2018-12-14] MEDS: ATORVASTATIN 20 MG TAB PO SCH (20:29)
[2018-12-14] MEDS: TAMSULOSIN 0.4 MG CAP PO SCH (20:30)
[2018-12-15] VITALS (7 sets, daily range): BP systolic 123–150; BP diastolic 59–74
[2018-12-15] MEDS: NYSTATIN 500,000 U/5 ML SUSP UDC SS SCH ×4 (00:42→17:23)
[2018-12-15] MEDS: IPRATROPIUM 0.5MG/ALBUTEROL 2.5MG INH SOL UD 3ML (DUONEB)(J7620) NEB SCH ×5 (02:00→20:00)
[2018-12-15] MEDS ORDERED: GOLYTELY SOLN 4000 ML BTL PO ONE (05:00)
[2018-12-15 06:29] LABS: HEMATOCRIT 31.3 % (42.0-52.0); HEMOGLOBIN 9.9 g/dl (13.5-17.5); MEAN CORPUSCULAR HEMOGLOBIN 26.7 pg (27.0-33.0); MEAN CORPUSCULAR HGB CONC 31.6 g/dl (32.0-36.5); MEAN CORPUSCULAR VOLUME 84.4 fl (80.0-96.0); RED BLOOD COUNT 3.71 10^6/uL (4.30-6.10); WHITE BLOOD COUNT 6.3 10^3/uL (4.0-10.0)
[2018-12-15 06:38] LABS: PLATELET COUNT, AUTOMATED 45 10^3/uL (150-450)
[2018-12-15 06:50] LABS: BLOOD UREA NITROGEN 39 MG/DL (7-18); CALCIUM LEVEL 7.2 MG/DL (8.8-10.2); CARBON DIOXIDE LEVEL 21 MEQ/L (21-32); CHLORIDE LEVEL 111 MEQ/L (98-107); CREATININE FOR GFR 1.17 MG/DL (0.70-1.30); GLOMERULAR FILTRATION RATE > 60.0 (>42); GLUCOSE, FASTING 98 MG/DL (70-100); POTASSIUM SERUM 3.6 MEQ/L (3.5-5.1); SODIUM LEVEL 141 MEQ/L (136-145)
[2018-12-15 08:03] LABS: ATYPICAL LYMPH 1 % (0-5); LYMPHOCYTES 4 % (16-52); MONOCYTES 2 % (0-8); NEUTROPHILS 91 % (35-75)
[2018-12-15 08:04] LABS: ANISOCYTOSIS 1+; HYPOCHROMASIA 1+; MICROCYTOSIS 1+; OVALOCYTES 1+; PLATELET ESTIMATE MARKED DECREASE (NORMAL); POIKILOCYTOSIS 1+
[2018-12-15] MEDS: ACYCLOVIR 200 MG CAPSULE PO SCH ×2 (09:00→20:58)
[2018-12-15] MEDS: FAMOTIDINE 20 MG TAB PO SCH (09:00)
[2018-12-15] MEDS: SODIUM CHLORIDE 0.9% INJ 10 ML SYR IV SCH (09:00)
[2018-12-15] MEDS: ALLOPURINOL 300 MG TAB PO SCH (09:00)
[2018-12-15] MEDS: SERTRALINE 100 MG TAB PO SCH (09:00)
[2018-12-15] MEDS: METOPROLOL SUCC *XL* 25MG TAB (TopROL *XL*) PO SCH ×2 (09:31→20:58)
--- NOTE | 2018-12-15 10:58 | IPNPDOC ---
Date Seen The patient was seen on 12/15/18. Progress Note SUBJECTIVE: Patient has no complaints this morning. There was a reported event yesterday where the patient slid off his bed and there was concern for acute process. Head CT was negative. Patient never lost consciousness and remembers the whole event. He will need a second colonoscopy today due to poor prep yesterday. He is encouraged to continue his prep this morning. No events overnight. OBJECTIVE PHYSICAL EXAMINATION: VITAL SIGNS: Please see below. GENERAL: obese male appearing stated age laying in bed in no acute distress, calm, cooperative HEENT: EOMI, PERRLA, moist mucus membranes, no thyromegaly CARDIOVASCULAR: RRR without any murmurs/rubs/gallops RESPIRATORY: clear to auscultation without any adventitious breath sounds appreciated ABDOMINAL: somewhat protuberant, soft, nontender to palpation, +BS EXTREMITIES: no clubbing/cyanosis/edema NEUROLOGICAL: CN 2-12 intact without any focal deficits appreciated PSYCHOLOGICAL: normal mood/affect, AAOx3 LABORATORY DATA, IMAGING STUDIES, MICROBIOLOGY: Please see below. TRANSESOPHAGEAL ECHOCARDIOGRAM: CONCLUSIONS: 1. Small stringy vegetations in association with the atrial side of the mitral leaflets, especially the anterior mitral leaflet. Associated focal prolapse of the distal half of the anterior mitral leaflet. No flail segments. Multiple mitral regurgitation jets. Mitral regurgitation was judged to be moderate overall. 2. Moderate aortic valve sclerosis of a 3-cusp aortic valve. No aortic stenosis. Mild-moderate central aortic regurgitation. 3. Structurally normal appearing tricuspid leaflets. Moderate tricuspid regurgitation. 4. Probable biatrial enlargement. 5. Normal left and right ventricle size and systolic function. Left ventricular ejection fraction (LVEF) 60% by visual estimate. 6. Cardiac rhythm management leads identified in the right atrium and extending into the right ventricle. No vegetations attached to those portions of the cardiac rhythm management leads that could be visualized. 7. Probable very small pericardial effusion. 8. Mild atheroma involving the distal aortic arch and descending thoracic aorta. DVT prophylaxis ordered?: TEDs/Sequentials ASSESSMENT AND PLAN: This is a 73 YO M with history of multiple myeloma currently undergoing treatment found to have neutropenic fever. Blood culture is positive for Streptococcus organism (bovis type II) and patient has been found to have vegetations on his mitral valve. He will undergo a colonoscopy today. PROBLEMS: # Febrile Neutropenia: afebrile. Continue Ceftriaxone 2g QD for blood cultures positive for Streptococcus infantarius -s/p 6 days of Vanc/Zosyn. -ISMAEL found small vegetations attached to atrial side of mitral valve with moderate mitral regurgitation, moderate aortic valve sclerosis -Continue stress dose Decadron 4mg BID -Procalcitonin <0.10 -Colonoscopy for positive S. bovis in blood cultures; bowel prep underway - Will trend CRP #Hx pacemaker: -Per cardiology ([facility]), patient's fluctuation between atrial flutter and SR is a chronic issue. Continue to monitor # Anemia and pancytopenia 2/2 chemotherapy: Stable -Hgb stable at 9.9 today -Neupogen stopped per Oncology # Multiple myeloma: current treatment regimen Revlimid and Daratumumab -Oncology consulted. Appreciate recommendations -Plt count still low at 45, will continue to monitor -Continue Acyclovir prophylaxis -Nystatin Swish/swallow started for empiric candidiasis coverage # Stroke-like symptoms prior to admission: appear to have resolved -Head CT negative for any intracranial abnormality; repeat head CT yesterday negative -Per oncology, patient is on chronic steroids which can cause proximal muscle weakness. No clinical signs at this point. Will continue to monitor -Symptoms appear to have resolved. # History of DVT: -Eliquis 5mg BID temporarily held for colonoscopy with Reindl -TEDs/Sequentials at this time for DVT prophylaxis. # History of COPD: -Continue scheduled DuoNebs +PRN for shortness of breath # History of Gout: -Continue Allopurinol # HLD: -Continue Lipitor # History of depression: -Continue Zoloft # BPH: -Continue Flomax DISPOSITION: Pending clinical improvement and PT clearance VS, I&O, 24H, [facility] Vital Signs/I&O Vital Signs Date Time Temp Pulse Resp B/P (MAP) Pulse Ox O2 Delivery O2 Flow Rate FiO2 12/15/18 09:31 58 132/66 12/15/18 06:00 97.3 18 96 12/14/18 19:15 3 I&O- Last 24 Hours up to 6 AM 12/15/18 06:00 Intake Total 1060 ml Output Total 650 ml Balance 410 ml Laboratory Data 24H LABS Laboratory Tests 2 12/15/18 05:30: Immature Granulocyte % (Auto) , White Blood Count 6.3, Red Blood Count 3.71L, Hemoglobin 9.9L, Hematocrit 31.3L, Mean Corpuscular Volume 84.4, Mean Corpuscular Hemoglobin 26.7L, Mean Corpuscular Hemoglobin Concent 31.6L, Red Cell Distribution Width 23.7H, Platelet Count 45L, Lymphocytes # (Auto) , Nucleated Red Blood Cells % (auto) 0.5H, Neutrophils 91H, Band Neutrophils 2, Lymphocytes (Manual) 4L, Monocytes (Manual) 2, Atypical Lymphocytes 1, Platelet Estimate MARKED DECREASE, Immature Platelet Fraction 9.0, Hypochromasia 1+, Poikilocytosis 1+, Anisocytosis 1+, Microcytosis 1+, Ovalocytes 1+, Anion Gap 9, Glomerular Filtration Rate > 60.0, Blood Urea Nitrogen 39H, Creatinine 1.17, Sod ium Level 141, Potassium Level 3.6, Chloride Level 111H, Carbon Dioxide Level 21, Calcium Level 7.2L CBC/BMP Laboratory Tests 12/15/18 05:30 Red Blood Count 3.71 L, Mean Corpuscular Volume 84.4, Mean Corpuscular Hemoglobin 26.7 L, Mean Corpuscular Hemoglobin Concent 31.6 L, Red Cell Distribution Width 23.7 H, Lymphocytes # (Auto) , Calcium Level 7.2 L Microbiology Microbiology 12/06/18 Blood Culture - Final, Complete NO GROWTH AFTER 5 DAYS 12/06/18 Blood Culture - Final, Complete NO GROWTH AFTER 5 DAYS 12/05/18 Stool Occult Blood (DANIEL) - Final, Complete GME ATTESTATION GME ATTESTATION My faculty preceptor for this patient encounter was physically present during the encounter and was fully available. All aspects of the patient interview, examination, medical decision making process, and medical care plan development were reviewed and approved by the faculty preceptor. The faculty preceptor is aware and concurs with the plan as stated in the body of this note and will a ttest to such by his/her cosignature. ATTENDING NOTE I, Deep Barksdale, have both independently examined this patient as well as reviewed the documentation. I have discussed in detail with the resident the findings and plan of treatment as documented in the residents documentation. I will continue to follow the patient and offer further guidance to the patients care as necessary during this hospital stay. BABITA HAJI MD Dec 15, 2018 10:58 DEEP BARKSDALE MD Dec 15, 2018 14:01
[2018-12-15] MEDS: cefTRIAXone SOD 2 GM in D5W MINI-BAG PLUS 50 ML IV SCH (14:31)
[2018-12-15] MEDS ORDERED: FUROSEMIDE 40 MG/4 ML VIAL (J1940) IV ONE (16:00)
[2018-12-15] MEDS ORDERED: PROPOFOL 200 MG/20 ML VIAL As Ordered ONE (17:26)
[2018-12-15] MEDS ORDERED: LIDOCAINE 2% INJ 100 MG/5 ML SDV (FOR ANES.) As Ordered ONE (17:26)
[2018-12-15] MEDS ORDERED: SIMETHICONE 40MG/0.6ML DROPS 30ML As Ordered ONE (17:31)
--- NOTE | 2018-12-15 18:18 | ROOR ---
Patient Name: Camilo Maza Procedure Date: 12/15/2018 5:09 PM Date of : 1945 Age: 73 Gender: Male Note Status: Finalized Procedure: Colonoscopy Indications: Exclusion of colorectal cancer. (Pt with Group D/Strep Bovis Bacteremia)--Yesterdays colonoscopy was Poor Prep. This is a repeat exam. Providers: Daniel PACE MD Referring MD: 2. Inpatient 2. Inpatient, JAX HAWKINS DO Requesting Provider: Medicines: Monitored Anesthesia Care Complications: No immediate complications. Procedure: Pre-Anesthesia Assessment: - The heart rate, respiratory rate, oxygen saturations, blood pressure, adequacy of pulmonary ventilation, and response to care were monitored throughout the procedure. The Colonoscope was introduced through the anus and advanced to the cecum, identified by appendiceal orifice and ileocecal valve. The colonoscopy was performed without difficulty. The patient tolerated the procedure well. The quality of the bowel preparation was adequate. Findings: Hemorrhoids were found on perianal exam. The exam was otherwise normal throughout the examined colon. Impression: - Hemorrhoids found on perianal exam. - Yesterdays polypectomy site identified by presence of endoclips. - The colonoscopy was otherwise normal. - No specimens collected. Recommendation: - Return patient to [facility] for ongoing care. - Resume regular diet. Daniel Pace MD Daniel PACE MD 12/15/2018 6:18:20 PM Electronically signed by Daniel PACE MD Number of Addenda: 0 Note Initiated On: 12/15/2018 5:09 PM Estimated Blood Loss: Estimated blood loss: none.
[2018-12-15] MEDS ORDERED: ONDANSETRON 4MG/2ML VIAL (J2405) IV PRN (19:15)
[2018-12-15] MEDS ORDERED: LR 1,000 ML IV SCH (19:15)
[2018-12-15] MEDS: TAMSULOSIN 0.4 MG CAP PO SCH (20:58)
[2018-12-15] MEDS: ATORVASTATIN 20 MG TAB PO SCH (20:58)
[2018-12-16] MEDS: NYSTATIN 500,000 U/5 ML SUSP UDC SS SCH ×4 (00:34→17:38)
[2018-12-16 02:00] VITALS: BP 129/67
[2018-12-16 06:00] VITALS: BP 131/63
[2018-12-16 06:01] LABS: HEMATOCRIT 29.4 % (42.0-52.0); HEMOGLOBIN 9.3 g/dl (13.5-17.5); MEAN CORPUSCULAR HEMOGLOBIN 26.6 pg (27.0-33.0); MEAN CORPUSCULAR HGB CONC 31.6 g/dl (32.0-36.5); MEAN CORPUSCULAR VOLUME 84.2 fl (80.0-96.0); RED BLOOD COUNT 3.49 10^6/uL (4.30-6.10); WHITE BLOOD COUNT 4.8 10^3/uL (4.0-10.0)
[2018-12-16 06:12] LABS: PLATELET COUNT, AUTOMATED 45 10^3/uL (150-450)
[2018-12-16 06:16] LABS: BLOOD UREA NITROGEN 36 MG/DL (7-18); C REACTIVE PROTEIN QUANTITATIV 0.77 MG/DL (0.00-0.30); CALCIUM LEVEL 6.8 MG/DL (8.8-10.2); CARBON DIOXIDE LEVEL 19 MEQ/L (21-32); CHLORIDE LEVEL 114 MEQ/L (98-107); CREATININE FOR GFR 1.15 MG/DL (0.70-1.30); GLOMERULAR FILTRATION RATE > 60.0 (>42); GLUCOSE, FASTING 112 MG/DL (70-100); SODIUM LEVEL 141 MEQ/L (136-145)
[2018-12-16 06:38] LABS: LYMPHOCYTES 3 % (16-52); MONOCYTES 6 % (0-8); NEUTROPHILS 87 % (35-75)
[2018-12-16 06:39] LABS: ANISOCYTOSIS 1+; OVALOCYTES 1+
[2018-12-16 06:40] LABS: PLATELET ESTIMATE MARKED DECREASE (NORMAL); TARGET CELLS 1+
[2018-12-16 06:41] LABS: DOHLE BODIES 1+; TOXIC GRANULATION 1+
[2018-12-16] MEDS: IPRATROPIUM 0.5MG/ALBUTEROL 2.5MG INH SOL UD 3ML (DUONEB)(J7620) NEB SCH ×3 (07:24→20:00)
[2018-12-16] MEDS: SODIUM CHLORIDE 0.9% INJ 10 ML SYR IV SCH (09:00)
[2018-12-16] MEDS: ACYCLOVIR 200 MG CAPSULE PO SCH ×2 (09:07→20:55)
[2018-12-16] MEDS: POTASSIUM CHLORIDE 10 MEQ SR TABLET PO SCH ×2 (09:08→20:54)
[2018-12-16] MEDS: METOPROLOL SUCC *XL* 25MG TAB (TopROL *XL*) PO SCH ×2 (09:08→20:55)
[2018-12-16] MEDS: ALLOPURINOL 300 MG TAB PO SCH (09:08)
[2018-12-16] MEDS: SERTRALINE 100 MG TAB PO SCH (09:09)
[2018-12-16] MEDS: FAMOTIDINE 20 MG TAB PO SCH (09:09)
[2018-12-16 10:00] VITALS: BP 143/71
--- NOTE | 2018-12-16 10:49 | IPNPDOC ---
Date Seen The patient was seen on 12/16/18. Progress Note SUBJECTIVE: No changes reported overnight. Patient reports he feels well this morning. Colonoscopy was uneventful yesterday. He was encouraged to work with PT/OT today. OBJECTIVE PHYSICAL EXAMINATION: VITAL SIGNS: Please see below. GENERAL: obese male appearing stated age laying in bed in no acute distress, calm, cooperative HEENT: EOMI, PERRLA, moist mucus membranes, no thyromegaly CARDIOVASCULAR: RRR without any murmurs/rubs/gallops RESPIRATORY: clear to auscultation without any adventitious breath sounds appreciated ABDOMINAL: somewhat protuberant, soft, nontender to palpation, +BS EXTREMITIES: no clubbing/cyanosis/edema NEUROLOGICAL: CN 2-12 intact without any focal deficits appreciated PSYCHOLOGICAL: normal mood/affect, AAOx3 LABORATORY DATA, IMAGING STUDIES, MICROBIOLOGY: Please see below. TRANSESOPHAGEAL ECHOCARDIOGRAM: CONCLUSIONS: 1. Small stringy vegetations in association with the atrial side of the mitral leaflets, especially the anterior mitral leaflet. Associated focal prolapse of the distal half of the anterior mitral leaflet. No flail segments. Multiple mitral regurgitation jets. Mitral regurgitation was judged to be moderate overall. 2. Moderate aortic valve sclerosis of a 3-cusp aortic valve. No aortic stenosis. Mild-moderate central aortic regurgitation. 3. Structurally normal appearing tricuspid leaflets. Moderate tricuspid regurgitation. 4. Probable biatrial enlargement. 5. Normal left and right ventricle size and systolic function. Left ventricular ejection fraction (LVEF) 60% by visual estimate. 6. Cardiac rhythm management leads identified in the right atrium and extending into the right ventricle. No vegetations attached to those portions of the cardiac rhythm management leads that could be visualized. 7. Probable very small pericardial effusion. 8. Mild atheroma involving the distal aortic arch and descending thoracic aorta. DVT prophylaxis ordered?: TEDs/Sequentials ASSESSMENT AND PLAN: This is a 73 YO M with history of multiple myeloma currently undergoing treatment found to have neutropenic fever. Blood culture is positive for Streptococcus organism (bovis type II) and patient has been found to have vegetations on his mitral valve. He will undergo a colonoscopy today. PROBLEMS: # Febrile Neutropenia: afebrile. Continue Ceftriaxone 2g QD for blood cultures positive for Streptococcus infantarius -s/p 6 days of Vanc/Zosyn. -ISMAEL found small vegetations attached to atrial side of mitral valve with moderate mitral regurgitation, moderate aortic valve sclerosis -Continue stress dose Decadron 4mg BID -Procalcitonin <0.10 -Colonoscopy for positive S. bovis in blood cultures negative for any pathology -CRP trend: 0.52-0.77 #Hx pacemaker: -Per cardiology ([facility]), patient's fluctuation between atrial flutter and SR i s a chronic issue. Continue to monitor -Eliquis 5mg BID temporarily held for colonoscopy with Reindl # Anemia and pancytopenia 2/2 chemotherapy: Stable -Hgb stable at 9.3 today -Neupogen stopped per Oncology # Multiple myeloma: current treatment regimen Revlimid and Daratumumab -Oncology consulted. Appreciate recommendations -Plt count still low at 45, will continue to monitor -Continue Acyclovir prophylaxis -Nystatin Swish/swallow started for empiric candidiasis coverage # Stroke-like symptoms prior to admission: appear to have resolved -Head CT negative for any intracranial abnormality; repeat head CT negative -Per oncology, patient is on chronic steroids which can cause proximal muscle weakness. No clinical signs at this point. Will continue to monitor -Symptoms appear to have resolved. # History of DVT: -Eliquis 5mg BID temporarily held for colonoscopy with Reindl -TEDs/Sequentials at this time for DVT prophylaxis. # History of COPD: -Continue scheduled DuoNebs +PRN for shortness of breath # History of Gout: -Continue Allopurinol # HLD: -Continue Lipitor # History of depression: -Continue Zoloft # BPH: -Continue Flomax DISPOSITION: Pending clinical improvement and PT clearance VS, I&O, 24H, Fishbone Vital Signs/I&O Vital Signs Date Time Temp Pulse Resp B/P (MAP) Pulse Ox O2 Delivery O2 Flow Rate FiO2 12/16/18 10:00 97.1 74 16 143/71 (95) 99 12/14/18 19:15 3 I&O- Last 24 Hours up to 6 AM 12/16/18 06:00 Intake Total 1110 ml Output Total 1300 ml Balance -190 ml Laboratory Data 24H LABS Laboratory Tests 2 12/16/18 05:26: Immature Granulocyte % (Auto) , White Blood Count 4.8, Red Blood Count 3.49L, Hemoglobin 9.3L, Hematocrit 29.4L, Mean Corpuscular Volume 84.2, Mean Corpuscular Hemoglobin 26.6L, Mean Corpuscular Hemoglobin Concent 31.6L, Red Cell Distribution Width 24.1H, Platelet Count 45L, Lymphocytes # (Auto) , Nucleated Red Blood Cells % (auto) 0.4H, Neutrophils 87H, Band Neutrophils 4, Lymphocytes (Manual) 3L, Monocytes (Manual) 6, Toxic Granulation 1+, Dohle Bodies 1+, Platelet Estimate MARKED DECREASE, Basophilic Stippling 1+, Anisocytosis 1+, Macrocytosis 1+, Target Cells 1+, Ovalocytes 1+, Anion Gap 8, Glomerular Filtration Rate > 60.0, Blood Urea Nitrogen 36H, Creatinine 1.15, Sodium Level 141, Potassium Level 3.0L, Chloride Level 114H, Carbon Dioxide Level 19L, Calcium Level 6.8L, C-Reactive Protein, Quantitative 0.77H CBC/BMP Laboratory Tests 12/16/18 05:26 Red Blood Count 3.49 L, Mean Corpuscular Volume 84.2, Mean Corpuscular Hemoglobin 26.6 L, Mean Corpuscular Hemoglobin Concent 31.6 L, Red Cell Distribution Width 24.1 H, Lymphocytes # (Auto) , Calcium Level 6.8 L Microbiology Microbiology 12/06/18 Blood Culture - Final, Complete NO GROWTH AFTER 5 DAYS 12/06/18 Blood Culture - Final, Complete NO GROWTH AFTER 5 DAYS GME ATTESTATION GME ATTESTATION My faculty preceptor for this patient encounter was physically present during the encounter and was fully available. All aspects of the patient interview, examination, medical decision making process, and medical care plan development were reviewed and approved by the faculty preceptor. The faculty preceptor is aware and concurs with the plan as stated in the body of this note and will attest to such by his/her cosignature. ATTENDING NOTE I, Deep Barksdale, have both independently examined this patient as well as reviewed the documentation. I have discussed in detail with the resident the findings and plan of treatment as documented in the residents documentation. I will continue to follow the patient and offer further guidance to the patients care as necessary during this hospital stay. BABITA HAJI MD Dec 16, 2018 10:49 DEEP BARKSDALE MD Dec 16, 2018 15:31
[2018-12-16] MEDS ORDERED: FUROSEMIDE 40 MG/4 ML VIAL (J1940) IV ONE (12:00)
[2018-12-16 14:00] VITALS: BP 140/84
[2018-12-16] MEDS: cefTRIAXone SOD 2 GM in D5W MINI-BAG PLUS 50 ML IV SCH (14:56)
[2018-12-16 18:00] VITALS: BP 167/78
[2018-12-16] MEDS: ATORVASTATIN 20 MG TAB PO SCH (20:54)
[2018-12-16] MEDS: TAMSULOSIN 0.4 MG CAP PO SCH (20:55)
[2018-12-16 22:00] VITALS: BP 128/68
[2018-12-17] MEDS: NYSTATIN 500,000 U/5 ML SUSP UDC SS SCH ×5 (00:23→23:49)
[2018-12-17] MEDS: IPRATROPIUM 0.5MG/ALBUTEROL 2.5MG INH SOL UD 3ML (DUONEB)(J7620) NEB SCH ×4 (02:00→20:00)
[2018-12-17 06:00] VITALS: BP 148/68
[2018-12-17 07:12] LABS: HEMATOCRIT 28.1 % (42.0-52.0); HEMOGLOBIN 8.7 g/dl (13.5-17.5); MEAN CORPUSCULAR HEMOGLOBIN 26.7 pg (27.0-33.0); MEAN CORPUSCULAR VOLUME 86.2 fl (80.0-96.0); RED BLOOD COUNT 3.26 10^6/uL (4.30-6.10)
[2018-12-17 07:19] LABS: PLATELET COUNT, AUTOMATED 46 10^3/uL (150-450)
[2018-12-17 07:26] LABS: CALCIUM LEVEL 7.2 MG/DL (8.8-10.2); CREATININE FOR GFR 1.31 MG/DL (0.70-1.30); GLOMERULAR FILTRATION RATE 57.3 (>42); POTASSIUM SERUM 3.3 MEQ/L (3.5-5.1)
[2018-12-17 07:44] LABS: ANISOCYTOSIS 3+; ATYPICAL LYMPH 1 % (0-5); LYMPHOCYTES 2 % (16-52); MONOCYTES 5 % (0-8); NEUTROPHILS 92 % (35-75); OVALOCYTES 1+; POIKILOCYTOSIS 1+; SCHISTOCYTES 1+
[2018-12-17 07:46] LABS: TEAR DROP CELLS 2+
[2018-12-17 07:49] LABS: DOHLE BODIES 1+; TOXIC GRANULATION 1+
[2018-12-17 07:50] LABS: PLATELET ESTIMATE MARKED DECREASE (NORMAL)
[2018-12-17] MEDS: FAMOTIDINE 20 MG TAB PO SCH (08:29)
[2018-12-17] MEDS: ACYCLOVIR 200 MG CAPSULE PO SCH ×2 (08:29→21:27)
[2018-12-17] MEDS: POTASSIUM CHLORIDE 10 MEQ SR TABLET PO SCH ×2 (08:29→21:26)
[2018-12-17] MEDS: ALLOPURINOL 300 MG TAB PO SCH (08:29)
[2018-12-17] MEDS: APIXABAN 5 MG TAB (ELIQUIS) PO SCH ×2 (08:29→21:26)
[2018-12-17] MEDS: SERTRALINE 100 MG TAB PO SCH (08:29)
[2018-12-17] MEDS: SODIUM CHLORIDE 0.9% INJ 10 ML SYR IV SCH (08:30)
[2018-12-17] MEDS: METOPROLOL SUCC *XL* 25MG TAB (TopROL *XL*) PO SCH ×2 (08:34→21:28)
--- NOTE | 2018-12-17 10:05 | IPNPDOC ---
Date Seen The patient was seen on 12/17/18. Progress Note SUBJECTIVE: Patient has no complaints this morning. He is very eager to go home. He is very edematous in hands/arms/legs. No changes overnight. OBJECTIVE PHYSICAL EXAMINATION: VITAL SIGNS: Please see below. GENERAL: obese male appearing stated age laying in bed in no acute distress, calm, cooperative HEENT: EOMI, PERRLA, moist mucus membranes, no thyromegaly CARDIOVASCULAR: RRR without any murmurs/rubs/gallops; port site c/d/i RESPIRATORY: clear to auscultation without any adventitious breath sounds appreciated ABDOMINAL: somewhat protuberant, soft, nontender to palpation, +BS EXTREMITIES: 3+ pitting edema in feet up to calves, hands and arms very edematous; small area on R hand of small punctate hemorrhages (likely from lab draw) NEUROLOGICAL: CN 2-12 intact without any focal deficits appreciated PSYCHOLOGICAL: normal mood/affect, AAOx3 LABORATORY DATA, IMAGING STUDIES, MICROBIOLOGY: Please see below. TRANSESOPHAGEAL ECHOCARDIOGRAM: CONCLUSIONS: 1. Small stringy vegetations in association with the atrial side of the mitral leaflets, especially the anterior mitral leaflet. Associated focal prolapse of the distal half of the anterior mitral leaflet. No flail segments. Multiple mitral regurgitation jets. Mitral regurgitation was judged to be moderate overall. 2. Moderate aortic valve sclerosis of a 3-cusp aortic valve. No aortic stenosis. Mild-moderate central aortic regurgitation. 3. Structurally normal appearing tricuspid leaflets. Moderate tricuspid regurgitation. 4. Probable biatrial enlargement. 5. Normal left and right ventricle size and systolic function. Left ventricular ejection fraction (LVEF) 60% by visual estimate. 6. Cardiac rhythm management leads identified in the right atrium and extending into the right ventricle. No vegetations attached to those portions of the cardiac rhythm management leads that could be visualized. 7. Probable very small pericardial effusion. 8. Mild atheroma involving the distal aortic arch and descending thoracic aorta. DVT prophylaxis ordered?: TEDs/Sequentials ASSESSMENT AND PLAN: This is a 73 YO M with history of multiple myeloma currently undergoing treatment found to have neutropenic fever. Blood culture is positive for Streptococcus organism (bovis type II) and patient has been found to have vegetations on his mitral valve. He will undergo a colonoscopy today. PROBLEMS: # Febrile Neutropenia: afebrile. Continue Ceftriaxone 2g QD for blood cultures positive for Streptococcus infantarius -s/p 6 days of Vanc/Zosyn. -ISMAEL found small vegetations attached to atrial side of mitral valve with moderate mitral regurgitation, moderate aortic valve sclerosis -Continue stress dose Decadron 4mg BID -Procalcitonin <0.10 -Colonoscopy for positive S. bovis in blood cultures negative for any pathology -CRP trend: 0.52-0.77 -Plan for ID consult on Wednesday #Hx pacemaker: -Per cardiology ([facility]), patient's fluctuation between atrial flutter and SR is a chronic issue. Continue to monitor -Restarted Eliquis 5mg BID -Lasix 40mg IV today for edema # Anemia and pancytopenia / chemotherapy: Stable -Hgb stable at 8.7 today -s/p Neupogen # Multiple myeloma: current treatment regimen Revlimid and Daratumumab -Oncology consulted. Appreciate recommendations -Plt count still low at 46, will continue to monitor -Continue Acyclovir prophylaxis -Nystatin Swish/swallow started for empiric candidiasis coverage # Stroke-like symptoms prior to admission: appear to have resolved -Head CT negative for any intracranial abnormality; repeat head CT negative -Symptoms appear to have resolved. # History of DVT: -Eliquis 5mg BID has been restarted -TEDs/Sequentials at this time for DVT prophylaxis. # History of COPD: -Continue scheduled DuoNebs +PRN for shortness of breath # History of Gout: -Continue Allopurinol # HLD: -Continue Lipitor # History of depression: -Continue Zoloft # BPH: -Continue Flomax DISPOSITION: Pending clinical improvement and PT clearance VS, I&O, 24H, Fishbone Vital Signs/I&O Vital Signs Date Time Temp Pulse Resp B/P (MAP) Pulse Ox O2 Delivery O2 Flow Rate FiO2 12/17/18 08:34 75 141/74 12/17/18 06:00 98.3 18 96 12/14/18 19:15 3 I&O- Last 24 Hours up to 6 AM 12/17/18 06:00 Intake Total 1080 ml Output Total 950 ml Balance 130 ml Laboratory Data 24H LABS Laboratory Tests 2 12/17/18 06:53: White Blood Count 4.0, Red Blood Count 3.26L, Hemoglobin 8.7L, Hematocrit 28.1L, Mean Corpuscular Volume 86.2, Mean Corpuscular Hemoglobin 26.7L, Mean Corpuscular Hemoglobin Concent 31.0L, Red Cell Distribution Width 24.1H, Platelet Count 46L, Lymphocytes # (Auto) , Nucleated Red Blood Cells % (auto) 0. 0, Neutrophils 92H, Lymphocytes (Manual) 2L, Monocytes (Manual) 5, Atypical Lymphocytes 1, Toxic Granulation 1+, Dohle Bodies 1+, Platelet Estimate MARKED DECREASE, Immature Platelet Fraction 7.0, Poikilocytosis 1+, Anisocytosis 3+, Tear Drop Cells 2+, Ovalocytes 1+, Schistocytes 1+, Anion Gap 10, Glomerular Filtration Rate 57.3, Blood Urea Nitrogen 37H, Creatinine 1.31H, Sodium Level 141, Potassium Level 3.3L, Chloride Level 114H, Carbon Dioxide Level 17L, Calcium Level 7.2L CBC/BMP Laboratory Tests 12/17/18 06:53 Red Blood Count 3.26 L, Mean Corpuscular Volume 86.2, Mean Corpuscular Hemoglobin 26.7 L, Mean Corpuscular Hemoglobin Concent 31.0 L, Red Cell Distribution Width 24.1 H, Lymphocytes # (Auto) , Calcium Level 7.2 L GME ATTESTATION GME ATTESTATION My faculty preceptor for this patient encounter was physically present during the encounter and was fully available. All aspects of the patient interview, examination, medical decision making process, and medical care plan development were reviewed and approved by the faculty preceptor. The faculty preceptor is aware and concurs with the plan as stated in the body of this note and will attest to such by his/her cosignature. ATTENDING NOTE I, Deep Barksdale, have both independently examined this patient as well as reviewed the documentation. I have discussed in detail with the resident the findings and plan of treatment as documented in the residents documentation. I will continue to follow the patient and offer further guidance to the patients care as necessary during this hospital stay. BABITA HAJI MD Dec 17, 2018 10:04 DEEP BARKSDALE MD Dec 17, 2018 15:47
--- NOTE | 2018-12-17 11:07 | REP ---
Chest one-view HISTORY: Fluid overload Comparison: 12/03/2018 The lungs are clear. The cardiac silhouette is enlarged. The pulmonary vasculature is normal in appearance. A cardiac pacemaker and [id number]-R-[id number] catheter are present. Impression: Cardiomegaly. Electronically Signed by Doc Lovett MD 12/17/2018 10:59 A
[2018-12-17] MEDS ORDERED: FUROSEMIDE 40 MG/4 ML VIAL (J1940) IV ONE (12:00)
[2018-12-17] MEDS: SODIUM CHLORIDE 0.9% INJ 10 ML SYR IV PRN (12:11)
[2018-12-17] MEDS: cefTRIAXone SOD 2 GM in D5W MINI-BAG PLUS 50 ML IV SCH (13:53)
[2018-12-17 14:00] VITALS: BP 176/86
[2018-12-17 15:00] VITALS: BP 136/66
[2018-12-17] MEDS: ATORVASTATIN 20 MG TAB PO SCH (21:26)
[2018-12-17] MEDS: TAMSULOSIN 0.4 MG CAP PO SCH (21:27)
[2018-12-17 22:00] VITALS: BP 132/69
[2018-12-18] MEDS: IPRATROPIUM 0.5MG/ALBUTEROL 2.5MG INH SOL UD 3ML (DUONEB)(J7620) NEB SCH ×4 (02:00→20:00)
[2018-12-18] MEDS: NYSTATIN 500,000 U/5 ML SUSP UDC SS SCH ×4 (05:12→23:43)
[2018-12-18 06:00] VITALS: BP 162/69
[2018-12-18 06:05] LABS: HEMATOCRIT 28.7 % (42.0-52.0); HEMOGLOBIN 8.9 g/dl (13.5-17.5); MEAN CORPUSCULAR HEMOGLOBIN 26.9 pg (27.0-33.0); MEAN CORPUSCULAR VOLUME 86.7 fl (80.0-96.0); RED BLOOD COUNT 3.31 10^6/uL (4.30-6.10); WHITE BLOOD COUNT 3.2 10^3/uL (4.0-10.0)
[2018-12-18 06:07] LABS: PLATELET COUNT, AUTOMATED 44 10^3/uL (150-450)
[2018-12-18 06:22] LABS: BLOOD UREA NITROGEN 33 MG/DL (7-18); CALCIUM LEVEL 7.1 MG/DL (8.8-10.2); CARBON DIOXIDE LEVEL 19 MEQ/L (21-32); CHLORIDE LEVEL 117 MEQ/L (98-107); CREATININE FOR GFR 1.25 MG/DL (0.70-1.30); GLOMERULAR FILTRATION RATE > 60.0 (>42); GLUCOSE, FASTING 124 MG/DL (70-100); POTASSIUM SERUM 3.8 MEQ/L (3.5-5.1); SODIUM LEVEL 143 MEQ/L (136-145)
[2018-12-18 06:38] LABS: DOHLE BODIES 1+; LYMPHOCYTES 4 % (16-52); MONOCYTES 3 % (0-8); NEUTROPHILS 93 % (35-75)
[2018-12-18 06:39] LABS: PLATELET ESTIMATE MARKED DECREASE (NORMAL); POIKILOCYTOSIS 2+
[2018-12-18 06:40] LABS: SCHISTOCYTES 1+; TEAR DROP CELLS 1+
[2018-12-18 06:41] LABS: ANISOCYTOSIS 3+; HYPOCHROMASIA 1+; OVALOCYTES 1+
[2018-12-18] MEDS: FUROSEMIDE 40 MG/4 ML VIAL (J1940) IV SCH ×2 (08:17→17:21)
[2018-12-18] MEDS: ACYCLOVIR 200 MG CAPSULE PO SCH ×2 (08:17→20:44)
[2018-12-18] MEDS: APIXABAN 5 MG TAB (ELIQUIS) PO SCH ×2 (08:18→20:46)
[2018-12-18] MEDS: FAMOTIDINE 20 MG TAB PO SCH (08:18)
[2018-12-18] MEDS: POTASSIUM CHLORIDE 10 MEQ SR TABLET PO SCH ×2 (08:18→20:44)
[2018-12-18] MEDS: ALLOPURINOL 300 MG TAB PO SCH (08:18)
[2018-12-18] MEDS: METOPROLOL SUCC *XL* 25MG TAB (TopROL *XL*) PO SCH ×2 (08:18→20:46)
[2018-12-18] MEDS: SERTRALINE 100 MG TAB PO SCH (08:18)
[2018-12-18] MEDS: SODIUM CHLORIDE 0.9% INJ 10 ML SYR IV SCH (08:19)
[2018-12-18] MEDS: NYSTATIN 100,000 UNITS/GM TOPICAL PWD 15 GM TOP SCH ×2 (12:16→20:46)
[2018-12-18 14:00] VITALS: BP 126/65
--- NOTE | 2018-12-18 14:14 | IPNPDOC ---
Text Note Date of Service The patient was seen on 12/18/18. NOTE Subjective: Patient is a 73-year-old male with a history of multiple myeloma currently undergoing treatment found to have neutropenic fever. Blood cultures were positive for Streptococcus organism (Bovis type II) and patient has been found to have vegetations on his mitral valve. Patient was seen and examined at the bedside. Currently patient reports that he is not expressing any events overnight. He denies chest pain, shortness of breath or palpitations. Denies nausea, vomiting, abdominal pain, constipation, diarrhea. He still reports surgery swelling. Patient still has not yet cleared physical therapy and is requiring additional assistance. Objective: Vitals (See below) General: Lying in bed, no acute distress, comfortable, AAOx3 HEENT: NC, AT CVS: RRR, +S1S2 Lungs: Fair air entry b/l, -w/r/r Abdomen: Soft, ND, NT Extremities: 2+ pitting edema bilaterally, - Calf tenderness Assessment and plan: Febrile neutropenia - likely 2/2 Streptococcus infantarius bacteremia - Clinically patient remains afebrile and hemodynamically stable - Physical remains benign - ISMAEL 12/13 positive for vegetations - Colonoscopy (12/14, 12/15) complete without any significant findings other than polyps - c/w Ceftriaxone 2g q24h; s/p Vancomycin and Zosyn - Will consult infectious disease Leukopenia - Initially - likely 2/2 infection - Currently could be 2/2 antibiotic use - s/p Neupogen - Oncology on consultation; appreciate their input Fluid overload - The patient is hemodynamically stable - Does not require supplemental oxygen - Physical does reveal significant lower extremity edema - Has remained negative fluid balance - Increased Furosemide frequency A flutter / Hx of Pacemaker - c/w Rate control with Carvedilol - c/w full anticoagulation with Eliquis Multiple Myeloma - Patient's treatment regimen includes Revlimid and Daratumumab - c/w Acyclovir for prophylaxis - c/w Nystatin oral for porphyric candidiasis treatment s/p Stroke like symptoms - CT Head 12/04: Moderate diffuse atrophy, vascular calcification and some small vessel changes. No acute intracranial abnormality. Innumerable focal radiolucencies in the bony calvarium consistent with myelomatous lesions in the skull. - CT Head 12/14: 1. Small vessel ischemic disease. 2. Moderate volume loss. 3. There are multiple small lytic lesions throughout the calvarium consistent with the patient's history of multiple myeloma. - Symptoms have resolved Hx of DVT - c/w full anticoagulation with Eliquis COPD - no evidence of exacerbation - c/w inhaled therapy as ordered Gout - c/w Allopurinol DLP - c/w Atorvastatin Depression - c/w Sertraline BPH - c/w Tamsulosin GERD - c/w Famotidine DVT prophylaxis - c/w full anticoagulation with Eliquis Disposition: - Pending clinical improvement and PT clearance VS,Christiano, I+O VS, Christiano, I+O Laboratory Tests 12/18/18 05:43 Red Blood Count 3.31 L, Mean Corpuscular Volume 86.7, Mean Corpuscular Hemoglobin 26.9 L, Mean Corpuscular Hemoglobin Concent 31.0 L, Red Cell Distribution Width 24.0 H, Lymphocytes # (Auto) , Calcium Level 7.1 L Vital Signs Date Time Temp Pulse Resp B/P (MAP) Pulse Ox O2 Delivery O2 Flow Rate FiO2 12/18/18 08:18 68 141/70 12/18/18 06:00 97.8 18 95 12/14/18 19:15 3 I&O- Last 24 Hours up to 6 AM 12/18/18 06:00 Intake Total 1410 ml Output Total 2900 ml Balance -1490 ml FABIÁN BARKSDALE MD Dec 18, 2018 14:14
[2018-12-18] MEDS: cefTRIAXone SOD 2 GM in D5W MINI-BAG PLUS 50 ML IV SCH (14:38)
[2018-12-18] MEDS: SODIUM CHLORIDE 0.9% INJ 10 ML SYR IV PRN (15:45)
[2018-12-18] MEDS: TAMSULOSIN 0.4 MG CAP PO SCH (20:44)
[2018-12-18] MEDS: ATORVASTATIN 20 MG TAB PO SCH (20:44)
[2018-12-18 22:00] VITALS: BP 138/70
[2018-12-19] MEDS: IPRATROPIUM 0.5MG/ALBUTEROL 2.5MG INH SOL UD 3ML (DUONEB)(J7620) NEB SCH ×4 (01:43→19:59)
[2018-12-19] MEDS: NYSTATIN 500,000 U/5 ML SUSP UDC SS SCH ×4 (05:22→23:49)
[2018-12-19 06:00] VITALS: BP 140/68
[2018-12-19 08:10] LABS: HEMATOCRIT 31.1 % (42.0-52.0); HEMOGLOBIN 9.7 g/dl (13.5-17.5); MEAN CORPUSCULAR HEMOGLOBIN 27.3 pg (27.0-33.0); MEAN CORPUSCULAR HGB CONC 31.2 g/dl (32.0-36.5); MEAN CORPUSCULAR VOLUME 87.6 fl (80.0-96.0); RED BLOOD COUNT 3.55 10^6/uL (4.30-6.10); WHITE BLOOD COUNT 3.2 10^3/uL (4.0-10.0)
[2018-12-19 08:11] LABS: PLATELET COUNT, AUTOMATED 50 10^3/uL (150-450)
[2018-12-19 08:32] LABS: C REACTIVE PROTEIN QUANTITATIV 0.56 MG/DL (0.00-0.30); CALCIUM LEVEL 7.6 MG/DL (8.8-10.2); CREATININE FOR GFR 1.35 MG/DL (0.70-1.30); GLOMERULAR FILTRATION RATE 55.3 (>42); MAGNESIUM LEVEL 1.8 MG/DL (1.8-2.4); POTASSIUM SERUM 4.4 MEQ/L (3.5-5.1)
[2018-12-19 08:43] LABS: ATYPICAL LYMPH 1 % (0-5); LYMPHOCYTES 12 % (16-52); MONOCYTES 4 % (0-8); NEUTROPHILS 81 % (35-75); PLATELET ESTIMATE DECREASED (NORMAL)
[2018-12-19 08:44] LABS: ANISOCYTOSIS 2+; HYPOCHROMASIA 2+; POLYCHROMASIA 2+
[2018-12-19 08:45] LABS: OVALOCYTES 1+; TEAR DROP CELLS 1+
[2018-12-19] MEDS: FUROSEMIDE 40 MG/4 ML VIAL (J1940) IV SCH ×2 (08:57→17:06)
[2018-12-19] MEDS: POTASSIUM CHLORIDE 10 MEQ SR TABLET PO SCH ×2 (08:58→21:49)
[2018-12-19] MEDS: ACYCLOVIR 200 MG CAPSULE PO SCH ×2 (08:58→21:49)
[2018-12-19] MEDS: METOPROLOL SUCC *XL* 25MG TAB (TopROL *XL*) PO SCH ×2 (08:58→21:50)
[2018-12-19] MEDS: SERTRALINE 100 MG TAB PO SCH (08:59)
[2018-12-19] MEDS: APIXABAN 5 MG TAB (ELIQUIS) PO SCH ×2 (08:59→21:49)
[2018-12-19] MEDS: ALLOPURINOL 300 MG TAB PO SCH (08:59)
[2018-12-19] MEDS: NYSTATIN 100,000 UNITS/GM TOPICAL PWD 15 GM TOP SCH ×2 (08:59→21:50)
[2018-12-19] MEDS: FAMOTIDINE 20 MG TAB PO SCH (08:59)
[2018-12-19] MEDS: SODIUM CHLORIDE 0.9% INJ 10 ML SYR IV SCH (09:00)
--- NOTE | 2018-12-19 13:42 | IPNPDOC ---
Text Note Date of Service The patient was seen on 12/19/18. NOTE Subjective: Patient is a 73-year-old male with a history of multiple myeloma currently undergoing treatment found to have neutropenic fever. Blood cultures were positive for Streptococcus organism (Bovis type II) and patient has been found to have vegetations on his mitral valve. Patient was seen and examined at the bedside. Currently he denies any problems overnight. Denies chest pain, shortness of breath, palpitations or cough. Denies nausea, vomiting, abdominal pain, constipation, diarrhea or discomfort with urination. Patient has been working with physical therapy. Objective: Vitals (See below) General: Lying in bed, no acute distress, comfortable, AAOx3 HEENT: NC, AT CVS: RRR, +S1S2 Lungs: Fair air entry b/l, auscultation is without any wheezing / rhonchi / rales Abdomen: Soft, non-distended, non-tender Extremities: 2+ pitting edema bilaterally, - Calf tenderness Assessment and plan: Febrile neutropenia - likely 2/2 Streptococcus infantarius bacteremia - Clinically patient remains afebrile and hemodynamically stable - Physical remains benign - ISMAEL 12/13 positive for vegetations - Colonoscopy (12/14, 12/15) complete without any significant findings other than polyps - c/w Ceftriaxone 2g q24h - will likely need 6 weeks therapy from 12/06 (Approximate end date of 01/17); s/p Vancomycin and Zosyn - Infectious disease; Dr. Diaz has been consulted Leukopenia - Initially - likely 2/2 infection - Currently could be 2/2 antibiotic use - s/p Neupogen - Oncology on consultation; appreciate their input Fluid overload - The patient is hemodynamically stable - Does not require supplemental oxygen - Physical does reveal significant lower extremity edema - Has remained negative fluid balance - c/w Furosemide 40 IV BID A flutter / Hx of Pacemaker - c/w Rate control with Carvedilol - c/w Full anticoagulation with Eliquis Multiple Myeloma - Patient's treatment regimen includes Revlimid and Daratumumab - c/w Acyclovir for prophylaxis - c/w Nystatin oral for porphyric candidiasis treatment s/p Stroke like symptoms - CT Head 12/04: Moderate diffuse atrophy, vascular calcification and some small vessel changes. No acute intracranial abnormality. Innumerable focal r adiolucencies in the bony calvarium consistent with myelomatous lesions in the skull. - CT Head 12/14: 1. Small vessel ischemic disease. 2. Moderate volume loss. 3. There are multiple small lytic lesions throughout the calvarium consistent with the patient's history of multiple myeloma. - Symptoms have resolved Hx of DVT - c/w full anticoagulation with Eliquis COPD - no evidence of exacerbation - c/w inhaled therapy as ordered Gout - c/w Allopurinol DLP - c/w Atorvastatin Depression - c/w Sertraline BPH - c/w Tamsulosin GERD - c/w Famotidine DVT prophylaxis - c/w full anticoagulation with Eliquis Disposition: - Pending clinical improvement and PT clearance - ID consulted VS,Christiano, I+O VS, Christiano I+O Laboratory Tests 12/19/18 07:45 Red Blood Count 3.55 L, Mean Corpuscular Volume 87.6, Mean Corpuscular Hemoglobin 27.3, Mean Corpuscular Hemoglobin Concent 31.2 L, Red Cell Distribution Width 24.3 H, Lymphocytes # (Auto) , Calcium Level 7.6 L Vital Signs Date Time Temp Pulse Resp B/P (MAP) Pulse Ox O2 Delivery O2 Flow Rate FiO2 12/19/18 08:58 80 138/72 12/19/18 06:00 97.5 20 98 12/14/18 19:15 3 I&O- Last 24 Hours up to 6 AM 12/19/18 06:00 Intake Total 1530 ml Output Total 2800 ml Balance -1270 ml FABIÁN BARKSDALE MD Dec 19, 2018 13:42
[2018-12-19 14:00] VITALS: BP 138/80
[2018-12-19] MEDS: cefTRIAXone SOD 2 GM in D5W MINI-BAG PLUS 50 ML IV SCH (14:05)
[2018-12-19] MEDS: SODIUM CHLORIDE 0.9% INJ 10 ML SYR IV PRN ×2 (14:54→17:07)
[2018-12-19] MEDS: ATORVASTATIN 20 MG TAB PO SCH (21:49)
[2018-12-19] MEDS: TAMSULOSIN 0.4 MG CAP PO SCH (21:50)
[2018-12-19 22:00] VITALS: BP 136/77
[2018-12-20] MEDS: IPRATROPIUM 0.5MG/ALBUTEROL 2.5MG INH SOL UD 3ML (DUONEB)(J7620) NEB SCH ×4 (02:00→19:54)
--- NOTE | 2018-12-20 05:24 | IPN ---
DATE: 12/18/2018 The patient has an inpatient in room 4208 bed 1. HEMATOLOGICAL/ONCOLOGICAL NOTE: Mr. Maza was not examined today. We just stopped by for a social call, spoke to the patient and discussed briefly with Dr. Emir Lucas who was also making rounds. Mr. Maza was admitted with neutropenic fever. He has underlying IgG lambda light chain multiple myeloma. He is on chemotherapy which is at present on hold and he turned out to have blood cultures positive for Streptococcus infantarius and he has vegetations on his mitral valve on the transthoracic echocardiogram (ISMAEL) not on the transthoracic echocardiogram. The patient has completed Vancomycin and Zosyn for six days and is now on Rocephin. His neutropenia has recovered, his anemia was stable but on the Rocephin the hemoglobin has dropped a little and so has the white count, Rocephin is known to do that. The platelet count has been low since admission but stable and not yet improved and it is a bit puzzling since the Revlimid should be out of the patient's system by now and so should the Darzylex. The patient is not clinically in disseminated intravascular coagulation (DIC). He does not have hemolytic uremic syndrome (HUS) so no medications could be implicated in the low platelets unless it is the heparin. Intermittently the patient was getting heparin or Lovenox injections. Originally he is on longstanding Eliquis for a history of deep venous thrombosis (DVT) but because he had a small gastrointestinal (GI) bleed this admission the Eliquis was on hold also. Now the issue has been the patient is not very active still, not putting his best effort for physical therapy but that could be because: 1. He is tired, he is anemic with hemoglobin between 8 - 9. 2. He is very anasarcous, his legs are quite swollen and heavy. He did not have anasarca until about day seven in this admission and his total protein and albumin have been going down significantly which may be contributing to the anasarca. Dr. Lucas is addressing all of the above. Dr. Diaz has finally been consulted and our concern is the MediPort. The patient had one MediPort removed last year because there was a methicillin resistant Staphylococcus aureus (MRSA) infection, now we have the strep infection and we have vegetations on the valve. My humble opinion is that the port should come out and a new port be placed but we will leave it up to Dr. Diaz's input. We are waiting for her expert opinion. The patient's has been concerned, she is a nurse (RN) and would like him home if he is ambulatory which she thought he was and would like the home nurse to come and complete the antibiotic course. According to the physical therapy notes the patient is not yet quite ambulatory. They come once a day according to the patient and they just make him walk in the room. He has not gone down to therapy and he really does not want to go to a rehab unit if it can be avoided but he will comply with whatever he is told. We are keeping a peripheral watch on Mr. Maza. As soon as an infection subsides we would like to resume his treatment for his multiple myeloma. cc: Sylvester Mina MD
[2018-12-20] MEDS: NYSTATIN 500,000 U/5 ML SUSP UDC SS SCH ×3 (05:30→17:13)
[2018-12-20 05:55] LABS: HEMATOCRIT 29.7 % (42.0-52.0); HEMOGLOBIN 9.3 g/dl (13.5-17.5); MEAN CORPUSCULAR HEMOGLOBIN 26.8 pg (27.0-33.0); MEAN CORPUSCULAR HGB CONC 31.3 g/dl (32.0-36.5); MEAN CORPUSCULAR VOLUME 85.6 fl (80.0-96.0); RED BLOOD COUNT 3.47 10^6/uL (4.30-6.10); WHITE BLOOD COUNT 3.5 10^3/uL (4.0-10.0)
[2018-12-20 06:00] VITALS: BP 149/71
[2018-12-20 06:02] LABS: PLATELET COUNT, AUTOMATED 61 10^3/uL (150-450)
[2018-12-20 06:16] LABS: ANISOCYTOSIS 2+; LYMPHOCYTES 3 % (16-52); MONOCYTES 3 % (0-8); NEUTROPHILS 90 % (35-75); PLATELET ESTIMATE MARKED DECREASE (NORMAL); TEAR DROP CELLS 1+
[2018-12-20 06:17] LABS: TOXIC GRANULATION 1+
[2018-12-20 06:29] LABS: C REACTIVE PROTEIN QUANTITATIV 0.55 MG/DL (0.00-0.30); CALCIUM LEVEL 7.8 MG/DL (8.8-10.2); CREATININE FOR GFR 1.38 MG/DL (0.70-1.30); GLOMERULAR FILTRATION RATE 53.9 (>42); MAGNESIUM LEVEL 1.8 MG/DL (1.8-2.4); POTASSIUM SERUM 4.4 MEQ/L (3.5-5.1)
[2018-12-20] MEDS: FUROSEMIDE 40 MG/4 ML VIAL (J1940) IV SCH (08:07)
[2018-12-20] MEDS: POTASSIUM CHLORIDE 10 MEQ SR TABLET PO SCH ×2 (08:07→21:07)
[2018-12-20] MEDS: FAMOTIDINE 20 MG TAB PO SCH (08:08)
[2018-12-20] MEDS: SERTRALINE 100 MG TAB PO SCH (08:08)
[2018-12-20] MEDS: APIXABAN 5 MG TAB (ELIQUIS) PO SCH ×2 (08:08→21:07)
[2018-12-20] MEDS: ALLOPURINOL 300 MG TAB PO SCH (08:08)
[2018-12-20] MEDS: ACYCLOVIR 200 MG CAPSULE PO SCH ×2 (08:08→21:07)
[2018-12-20] MEDS: METOPROLOL SUCC *XL* 25MG TAB (TopROL *XL*) PO SCH ×2 (08:08→21:07)
[2018-12-20] MEDS: SODIUM CHLORIDE 0.9% INJ 10 ML SYR IV SCH (08:09)
[2018-12-20] MEDS: NYSTATIN 100,000 UNITS/GM TOPICAL PWD 15 GM TOP SCH ×2 (08:09→21:30)
--- NOTE | 2018-12-20 12:41 | IPNPDOC ---
Text Note Date of Service The patient was seen on 12/20/18. NOTE Subjective: Patient is a 73-year-old male with a history of multiple myeloma currently undergoing treatment found to have neutropenic fever. Blood cultures were positive for Streptococcus organism (Bovis type II) and patient has been found to have vegetations on his mitral valve. Patient was seen and examined at the bedside. He has been working with physical therapy and has progressed well. He is likely to clear physical therapy soon for discharge home with services. Currently, denies chest pain, shortness of breath or palpitations. Denies nausea, vomiting, abdominal pain, constipation, or urinary discomfort. Objective: Vitals (See below) General: Lying in bed, no acute distress, comfortable, AAOx3 HEENT: NC, AT CVS: RRR, +S1S2 Lungs: Air entry is fair bilaterally without evidence of wheezing, rhonchi or rales Abdomen: Abdomen remains soft without evidence of distention or tenderness Extremities: 1+ pitting edema bilaterally, - Calf tenderness Assessment and plan: Febrile neutropenia - likely 2/2 Acute bacterial endocarditis with Streptococcus infantarius bacteremia - Clinically patient remains afebrile and hemodynamically stable - Physical remains benign - ISMAEL 12/13 positive for vegetations - Colonoscopy (12/14, 12/15) complete without any significant findings other than polyps - c/w Ceftriaxone 2g q24h - will likely need 6 weeks therapy from 12/06 (Approximate end date of 01/17); s/p Vancomycin and Zosyn - Infectious disease; Dr. Diaz on consult Leukopenia - Initially - likely 2/2 infection - Currently could be 2/2 antibiotic use - s/p Neupogen - Oncology on consultation; appreciate their input Fluid overload - The patient is hemodynamically stable - Does not require supplemental oxygen - Physical does reveal significant lower extremity edema - Has remained negative fluid balance - c/w Furosemide 40 IV BID A flutter / Hx of Pacemaker - c/w Rate control with Carvedilol - c/w Full anticoagulation with Eliquis Multiple Myeloma - Patient's treatment regimen includes Revlimid and Daratumumab - c/w Acyclovir for prophylaxis - c/w Nystatin oral for porphyric candidiasis treatment s/p Stroke like symptoms - CT Head 12/04: Moderate diffuse atrophy, vascular calcification and some small vessel changes. No acute intracranial abnormality. Innumerable focal r adiolucencies in the bony calvarium consistent with myelomatous lesions in the skull. - CT Head 12/14: 1. Small vessel ischemic disease. 2. Moderate volume loss. 3. There are multiple small lytic lesions throughout the calvarium consistent with the patient's history of multiple myeloma. - Symptoms have resolved Hx of DVT - c/w full anticoagulation with Eliquis COPD - no evidence of exacerbation - c/w inhaled therapy as ordered Gout - c/w Allopurinol DLP - c/w Atorvastatin Depression - c/w Sertraline BPH - c/w Tamsulosin GERD - c/w Famotidine DVT prophylaxis - c/w full anticoagulation with Eliquis Disposition: - c/w Diuresis; changed to oral - Will continue to evaluate output - Anticipate discharge within 24-48 hours Christiano ASHER I+O Christiano ASHER I+O Laboratory Tests 12/20/18 05:36 Red Blood Count 3.47 L, Mean Corpuscular Volume 85.6, Mean Corpuscular Hemoglobin 26.8 L, Mean Corpuscular Hemoglobin Concent 31.3 L, Red Cell Distribution Width 24.6 H, Lymphocytes # (Auto) , Calcium Level 7.8 L Vital Signs Date Time Temp Pulse Resp B/P (MAP) Pulse Ox O2 Delivery O2 Flow Rate FiO2 12/20/18 08:08 92 135/71 12/20/18 06:00 98.0 20 98 12/14/18 19:15 3 I&O- Last 24 Hours up to 6 AM 12/20/18 06:00 Intake Total 1330 ml Output Total 2600 ml Balance -1270 ml FABIÁN BARKSDALE MD Dec 20, 2018 12:41
[2018-12-20] MEDS: cefTRIAXone SOD 2 GM in D5W MINI-BAG PLUS 50 ML IV SCH (13:40)
[2018-12-20 14:00] VITALS: BP 148/72
[2018-12-20] MEDS: SODIUM CHLORIDE 0.9% INJ 10 ML SYR IV PRN (15:27)
--- NOTE | 2018-12-20 16:01 | CR ---
DATE OF CONSULTATION: 12/19/2018 Asked to consult by the hospitalist for followup on subacute endocarditis of the mitral valve with culture positive for Streptococcus infantarius. HISTORY OF PRESENT ILLNESS: Mr. Maza is a 73-year-old gentleman with a history of multiple myeloma, who is undergoing chemotherapy with Revlimid and daratumumab along with dexamethasone. The patient had two cycles of treatment, which were complicated by anemia requiring transfusion and neutropenia. The patient was admitted to the hospital on December 03 with complaint of fever up to 101.3 and 5 days of not feeling well. The patient was started on empiric broad-spectrum antibiotics with vancomycin and Zosyn. Blood cultures obtained were positive for Streptococcus infantarius. Repeat blood cultures within 48 hours were negative. Fever resolved. The patient had a workup, including an echocardiogram, which was suggestive of mitral valve vegetation. The patient was switched to IV Rocephin 2 grams daily with improvement. He had been on antibiotics for 2 weeks and has had no fever or chills. His strength has improved, but he still needs a couple days of rehabilitation before hopefully he can go home. He denies any nausea or vomiting. He has some soft stools but no abdominal pain. No urinary symptoms. PAST MEDICAL HISTORY: Significant for: 1. History of transitional cell carcinoma, status post right nephroureterectomy in 2001, done by Dr. Hylton with no adjuvant treatment. 2. Diagnosis of a monoclonal gammopathy, IgG lambda in 2012. 3. 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 4. 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 The patient is being treated was being treated for multiple myeloma with Velcade and dexamethasone until August. He started daratumumab and Revlimid in August 2018 due to progression on previous regimen. OTHER PAST MEDICAL HISTORY: 1. Stage III chronic kidney disease. The patient has one kidney, left side. 2. Hypertension. 3. Gout. 4. Deep vein thrombosis (DVT), on apixaban. 5. Third-degree atrioventricular (AV) block, status post pacemaker insertion 11/26/2017. PAST SURGICAL HISTORY: 1. Laminectomy done by Dr. Javier in 2012. 2. Transurethral resection of the prostate (TURP).. 3. Permanent pacemaker done by Dr. Lobato 11/26/2017. 4. Right orchiectomy January 2016. 5. Right ureteral nephrectomy 2001. 6. Multiple bone marrow biopsies. SOCIAL HISTORY: [employer] year. Stopped 16 years ago. He lives with his , who is a retired nurse. He denies alcohol use. 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 REVIEW OF SYSTEMS: He denies any cough. Fever has resolved. No chills. No dysuria or hematuria. No nausea, vomiting. He has soft stools, on antibiotic. He has chronic back pain. No chest pain or palpitations. He has generalized weakness, but he is improving with physical therapy. MEDICATIONS: - furosemide 40 mg intravenous (IV) every 12 hours - nystatin one dose twice a day - Eliquis 5 mg by mouth twice a day - Micro-K 40 mEq twice a day - Rocephin 2 grams IV every 24 hours, currently day #10 - nystatin swish and swallow - metoprolol 25 mg by mouth twice a day - allopurinol 300 mg by mouth daily - Pepcid 20 mg by mouth daily - montelukast 10 mg by mouth daily as needed - Zoloft 100 mg by mouth daily - acyclovir 400 mg by mouth twice a day prophylaxis - atorvastatin 20 mg by mouth at bedtime - tamsulosin 0.4 mg by mouth at bedtime - dexamethasone 4 mg by mouth every 12 - Nebulizers have been written for every 6, and the patient has refused them for the past 5 days. These will be discontinued. ALLERGIES: No known drug allergies. PHYSICAL EXAMINATION: He is a pleasant, healthy-looking elderly gentleman in no acute distress. Oropharynx: Very dry mucosa with orange lips from his popsicle. Pupils equal and reactive, anicteric. No lesions. HEART: Normal S1, S2, distant. No murmurs appreciated. LUNGS: Diminished breath sounds at the bases but clear. Chest wall left [id number] nontender to touch. No erythema. No evidence of site infection. Right pacemaker site well healed with no tenderness. ABDOMEN: Morbidly obese, soft, nontender. BACK: No costovertebral angle (CVA) tenderness. Right nephrectomy scar. BACK: Mild lumbosacral tenderness. Well-healed scar. EXTREMITIES: Pitting edema +2 bilateral. No calf tenderness. No rashes. Dry skin with calluses on the feet. LABORATORY DATA: White count is 3.2, hemoglobin 9.7, hematocrit 31.1, platelets 50. On admission his white count was 0.4. Sodium 140, potassium 4.4, chloride 111, bicarbonate 22, BUN 35, creatinine 1.35, glucose 170, calcium 7.6, magnesium 1.8, CRP 0.56, which is down from 6.74. Blood cultures were positive on December 03 with Streptococcus infantarius in two specimens, although they were timed at the same exact time on at 4:31, so I am not sure if these were two separate specimens. Respiratory panel was negative. Blood cultures done on December 06 were no growth after 5 days. Chest x-ray December 17 shows cardiomegaly, pacemaker and [id number] in place, present. Head CT on December 14 shows moderate volume loss and multiple lytic lesions throughout the calvarium, consistent with multiple myeloma. Transesophageal echocardiogram on December 13 done and read by Dr. Lobato shows a small string of vegetations on the atrial side of the mitral leaflet. Anterior mitral leaflet consistent with vegetations. Multiple mitral regurgitation jets. Moderate tricuspid regurgitation. No aortic stenosis. Mild to moderate aortic regurgitation and a probable small pericardial effusion. Colonoscopy done by Dr. Pace on December 15 shows one polyp, which was a tubular adenoma, otherwise benign. IMPRESSION: This is a 73-year-old gentleman who was admitted with febrile neutropenia, found to have bacteremia with Streptococcus infantarius and endocarditis of the mitral valve. The patient has slowly improved. He has been on appropriate antibiotics, currently on Rocephin 2 grams daily. He is improving with physical therapy, and his hopefully plans to take him home in the next 48 hours. PLAN: Continue with IV Rocephin 2 grams every 24 hours for a total of 4 weeks from negative cultures. His first negative culture was on December 06, and end of therapy will be January 03, which will be 4 weeks from negative cultures. Monitor complete blood count (CBC), C-reactive protein (CRP), sedimentation rate weekly. Infusion company will be doing the teaching in the next at 24-48 hours. I have written the order for [facility] to come and do the teaching. Continue with physical therapy. I suspect the patient will be able to discharge home on Wednesday with his being the caregiver to give him ceftriaxone through his [id number].
[2018-12-20] MEDS: FUROSEMIDE 20 MG TAB PO SCH (17:13)
--- NOTE | 2018-12-20 21:06 | IPN ---
DATE: 12/20/2018 Mr. Maza seems to be doing well. Except for lower extremity edema and mild shortness of breath he is doing well and anxious to go home. His IV diuresis was switched to furosemide 60 mg by mouth twice a day and the plan is to discharge him home tomorrow if he is doing well. He denies any nausea, vomiting, diarrhea, abdominal pain, fever or chills. He is on Rocephin 2 grams IV every 24 hours for mitral valve endocarditis with culture positive for Streptococcus infantarius on 12/03/2018. LABORATORY DATA: White count 3.5, hemoglobin 9.3, hematocrit 29.7, platelets 61, 90% neutrophils, 4% bands, 3% monocytes. Sodium 139, potassium 4.4, chloride 112, bicarbonate 21, BUN 41, creatinine 1.38, glucose 120, calcium 7.8, magnesium 1.8, CRP 0.55. On physical exam, temperature is 96.8, pulse 67, respirations 20, blood pressure 148/72, oxygen saturation 96% on room air. Heart normal S1, S2, distant. No murmurs appreciated. Lungs: Diminished breath sounds with few inspiratory wheezes. Abdomen: Morbidly obese, soft, nontender. Extremities: +2 pitting edema. IMPRESSION: 1. Mitral valve and [place] valve endocarditis with culture positive for Streptococcus infantarius. The patient will be treated with 4 weeks of IV Rocephin, end of therapy will be 01/03/2019 which will be 4 weeks from negative cultures. 2. Tubular adenoma. Colonoscopy done as part of workup of endocarditis with Streptococcus infantarius. No evidence of malignancy. 3. Multiple myeloma. Chemotherapy currently on hold. This will be followed up by oncology. At this point the patient cannot be on chemotherapy until he is done with his antibiotics. PLAN: Discharge the patient home tomorrow. Home infusion [facility] has been in the hospital, done the teaching and his will be doing the infusion. Lab work to be done weekly including CBC, basic CRP, ESR. End of therapy will be in 01/03/2019.
[2018-12-20] MEDS: ATORVASTATIN 20 MG TAB PO SCH (21:07)
[2018-12-20] MEDS: TAMSULOSIN 0.4 MG CAP PO SCH (21:07)
[2018-12-20 22:00] VITALS: BP 134/70
[2018-12-21] MEDS: NYSTATIN 500,000 U/5 ML SUSP UDC SS SCH ×3 (00:05→12:55)
[2018-12-21] MEDS: IPRATROPIUM 0.5MG/ALBUTEROL 2.5MG INH SOL UD 3ML (DUONEB)(J7620) NEB SCH ×3 (01:47→14:00)
[2018-12-21 06:09] LABS: BASO % 0.2 % (0.0-1.0); HEMATOCRIT 30.6 % (42.0-52.0); HEMOGLOBIN 9.7 g/dl (13.5-17.5); LYMPH % 4.8 % (24.0-44.0); MEAN CORPUSCULAR HEMOGLOBIN 27.2 pg (27.0-33.0); MEAN CORPUSCULAR HGB CONC 31.7 g/dl (32.0-36.5); MEAN CORPUSCULAR VOLUME 85.7 fl (80.0-96.0); MONO # 0.2 10^3/uL (0.0-0.8); MONO % 5.5 % (0.0-5.0); NEUTROPHILS # 3.6 10^3/uL (1.8-7.7); NEUTROPHILS % 86.4 % (36.0-66.0); RED BLOOD COUNT 3.57 10^6/uL (4.30-6.10); WHITE BLOOD COUNT 4.2 10^3/uL (4.0-10.0)
[2018-12-21 06:25] LABS: BLOOD UREA NITROGEN 41 MG/DL (7-18); C REACTIVE PROTEIN QUANTITATIV < 0.30 MG/DL (0.00-0.30); CALCIUM LEVEL 8.1 MG/DL (8.8-10.2); CARBON DIOXIDE LEVEL 23 MEQ/L (21-32); CHLORIDE LEVEL 110 MEQ/L (98-107); CREATININE FOR GFR 1.45 MG/DL (0.70-1.30); GLOMERULAR FILTRATION RATE 50.9 (>42); GLUCOSE, FASTING 115 MG/DL (70-100); MAGNESIUM LEVEL 1.6 MG/DL (1.8-2.4); POTASSIUM SERUM 4.4 MEQ/L (3.5-5.1); SODIUM LEVEL 139 MEQ/L (136-145)
[2018-12-21 06:46] LABS: LYMPH # 0.2 10^3/uL (1.5-4.5); PLATELET COUNT, AUTOMATED 65 10^3/uL (150-450)
[2018-12-21] MEDS ORDERED: MAG SULF 1GM/100ML (MAG RUN) 1 GM in APPROPRIATE DILUENT 1 EA IV ONE (07:30)
[2018-12-21] MEDS: POTASSIUM CHLORIDE 10 MEQ SR TABLET PO SCH (08:45)
[2018-12-21] MEDS: ACYCLOVIR 200 MG CAPSULE PO SCH (08:45)
[2018-12-21 08:46] VITALS: BP 128/64
[2018-12-21] MEDS: APIXABAN 5 MG TAB (ELIQUIS) PO SCH (08:46)
[2018-12-21] MEDS: SERTRALINE 100 MG TAB PO SCH (08:46)
[2018-12-21] MEDS: FAMOTIDINE 20 MG TAB PO SCH (08:46)
[2018-12-21] MEDS: ALLOPURINOL 300 MG TAB PO SCH (08:46)
[2018-12-21] MEDS: FUROSEMIDE 20 MG TAB PO SCH (08:46)
[2018-12-21] MEDS: METOPROLOL SUCC *XL* 25MG TAB (TopROL *XL*) PO SCH (08:46)
[2018-12-21] MEDS: SODIUM CHLORIDE 0.9% INJ 10 ML SYR IV SCH (08:47)
[2018-12-21] MEDS: NYSTATIN 100,000 UNITS/GM TOPICAL PWD 15 GM TOP SCH (08:48)
[2018-12-21] MEDS ORDERED: FURO40TA2 PO ×2 (10:04→11:12)
[2018-12-21] MEDS ORDERED: METO1TAB32 PO ×2 (10:04→11:12)
[2018-12-21] MEDS: cefTRIAXone SOD 2 GM in D5W MINI-BAG PLUS 50 ML IV SCH (12:55)
[2018-12-21] MEDS: SODIUM CHLORIDE 0.9% INJ 10 ML SYR IV PRN (13:52)
[2018-12-21 14:00] VITALS: BP 136/71
--- NOTE | 2018-12-21 16:40 | DS.PDOC ---
Discharge Summary General Date of Admission Dec 03, 2018 at 18:12 Date of Discharge 12/21/2018 Discharge Summary PROCEDURES PERFORMED DURING STAY: Colonoscopy performed by Dr. Pace on 12/14 and 12/[address] Lobato on 12/13 ADMITTING DIAGNOSES / DISCHARGE DIAGNOSES: Febrile neutropenia - likely 2/2 Acute bacterial endocarditis with Streptococcus infantarius bacteremia Leukopenia Fluid overload A flutter / Hx of Pacemaker Multiple Myeloma s/p Stroke like symptoms Hx of DVT COPD Gout DLP Depression BPH GERD DVT prophylaxis COMPLICATIONS/CHIEF COMPLAINT: Fevers HISTORY OF PRESENT ILLNESS: Patient is a 73-year-old male with a history of multiple myeloma currently undergoing treatment found to have neutropenic fever. Blood cultures were positive for Streptococcus organism (Bovis type II) and patient has been found to have vegetations on his mitral valve. HOSPITAL COURSE: Febrile neutropenia - likely 2/2 Acute bacterial endocarditis with Streptococcus infantarius bacteremia - Clinically patient remains afebrile and hemodynamically stable - Physical remains benign - ISMAEL 12/13 positive for vegetations - Colonoscopy (12/14, 12/15) complete without any significant findings other than polyps - c/w Ceftriaxone 2g q24h -patient will continue with 4 weeks of antibiotic therapy and will complete on 01/05; s/p Vancomycin and Zosyn - Infectious disease; Dr. Diaz on consult; we will have outpatient follow-up with Dr. Weaver and Dr. Mina Leukopenia - Initially - likely 2/2 infection - Currently could be 2/2 antibiotic use - s/p Neupogen - Oncology on consultation; appreciate their input; we will have outpatient follow-up with Dr. Rice Fluid overload - Patient has been experiencing significant improvement in his swelling - Does not require supplemental oxygen - Physical does reveal significant lower extremity edema - Has remained negative fluid balance - c/w Furosemide 40 PO BID; we'll have outpatient follow-up with Dr. Mina, Dr. Lobato, and Dr. Adams - Patient will have basic metabolic panel drawn in 2 days and results will be forwarded to Nephrology / PCP A flutter / Hx of Pacemaker - c/w Rate control with Carvedilol - c/w Full anticoagulation with Eliquis - Patient will have outpatient follow-up with Dr. Lobato Multiple Myeloma - Patient's treatment regimen includes Revlimid and Daratumumab - c/w Acyclovir for prophylaxis - c/w Nystatin oral for porphyric candidiasis treatment - Patient will continue to have the patient follow-up with Dr. Rice s/p Stroke like symptoms - CT Head 12/04: Moderate diffuse atrophy, vascular calcification and some small vessel changes. No acute intracranial abnormality. Innumerable focal radiolucencies in the bony calvarium consistent with myelomatous lesions in the skull. - CT Head 12/14: 1. Small vessel ischemic disease. 2. Moderate volume loss. 3. There are multiple small lytic lesions throughout the calvarium consistent with the patient's history of multiple myeloma. - Symptoms have resolved Hx of DVT - c/w full anticoagulation with Eliquis COPD - no evidence of exacerbation - c/w inhaled therapy as ordered Gout - c/w Allopurinol DLP - c/w Atorvastatin Depression - c/w Sertraline BPH - c/w Tamsulosin GERD - c/w Famotidine DVT prophylaxis - c/w full anticoagulation with Eliquis DISCHARGE MEDICATIONS: Please see below. ALLERGIES: Please see below. PHYSICAL EXAMINATION ON DISCHARGE: Vitals (See below) General: Lying in bed, no acute distress, comfortable, AAOx3 HEENT: NC, AT CVS: RRR, +S1S2 Lungs: Fair bilaterally without auscultated evidence of rhonchi, rales or wheezing Abdomen: Abdomen is soft without evidence of tenderness or distention Extremities: 1+ pitting edema bilaterally, - Calf tenderness LABORATORY DATA: Please see below. ACTIVITY: [As tolerated]. DISCHARGE PLAN: Follow-up with Dr. Leopoldo Diaz, Dr. Rice, Dr. Adams and Dr. Lobato within 7 days Remain compliant with treatment plan and medications Return to the ER if you experience any problems DISPOSITION: Home, Self-Care. DISCHARGE CONDITION: [Stable]. TIME SPENT ON DISCHARGE: Greater than [35] minutes. Vital Signs/I&Os Vital Signs Date Time Temp Pulse Resp B/P (MAP) Pulse Ox O2 Delivery O2 Flow Rate FiO2 12/21/18 14:00 96.7 60 18 136/71 (92) 96 I&O- Last 24 Hours up to 6 AM 12/21/18 06:00 Intake Total 1935 ml Output Total 3400 ml Balance -1465 ml Laboratory Data Labs 24H Laboratory Tests 2 12/21/18 05:27: Immature Granulocyte % (Auto) 3.1H, White Blood Count 4.2, Red Blood Count 3.57L, Hemoglobin 9.7L, Hematocrit 30.6L, Mean Corpuscular Volume 85.7, Mean Corpuscular Hemoglobin 27.2, Mean Corpuscular Hemoglobin Concent 31.7L, Red Cell Distribution Width 24.3H, Platelet Count 65L, Neutrophils (%) (Auto) 86.4H, Lymphocytes (%) (Auto) 4.8L, Monocytes (%) (Auto) 5.5H, Eosinophils (%) (Auto) 0.0, Basophils (%) (Auto) 0.2, Neutrophils # (Auto) 3.6, Lymphocytes # (Auto) 0.2L, Monocytes # (Auto) 0.2, Eosinophils # (Auto) 0.0, Basophils # (Auto) 0.0, Nucleated Red Blood Cells % (auto) 0.0, Immature Platelet Fraction 5.3, Anion Gap 6L, Glomerular Filtration Rate 50.9, Blood Urea Nitrogen 41H, Creatinine 1.45H, Sodium Level 139, Potassium Level 4.4, Chloride Level 110H, Carbon Dioxide Level 23, Calcium Level 8.1L, Magnesium Level 1.6L, C-Reactive Protein, Quantitative < 0.30 CBC/BMP Laboratory Tests 12/21/18 05:27 Red Blood Count 3.57 L, Mean Corpuscular Volume 85.7, Mean Corpuscular Hemoglob in 27.2, Mean Corpuscular Hemoglobin Concent 31.7 L, Red Cell Distribution Width 24.3 H, Neutrophils (%) (Auto) 86.4 H, Lymphocytes (%) (Auto) 4.8 L, Monocytes (%) (Auto) 5.5 H, Eosinophils (%) (Auto) 0.0, Basophils (%) (Auto) 0.2, Neutrophils # (Auto) 3.6, Lymphocytes # (Auto) 0.2 L, Monocytes # (Auto) 0.2, Eosinophils # (Auto) 0.0, Basophils # (Auto) 0.0, Calcium Level 8.1 L Discharge Medications Scheduled Acyclovir (Acyclovir) 400 Mg Tablet, 400 MG PO BID, (Reported) Allopurinol (Zyloprim) 300 Mg Tablet, 300 MG PO DAILY, (Reported) Apixaban (Eliquis) 5 Mg Tab, 5 MG PO BID, (Reported) Aspirin (Aspirin EC) 81 Mg Tab, 81 MG PO QPM, (Reported) Atorvastatin Calcium (Atorvastatin Calcium) 20 Mg Tab, 20 MG PO QHS, (Reported) Cholecalciferol (Vitamin D3) (Vitamin D3) 2,000 Unit Capsule, 2,000 UNIT PO DAILY, (Reported) Famotidine (Famotidine) 20 Mg Tab, 20 MG PO DAILY, (Reported) Furosemide (Furosemide) 40 Mg Tablet, 1 TAB PO BID Metoprolol Succinate (Metoprolol Succinate) 25 Mg Tab.er.24h, 1 TAB PO BID Montelukast Sodium (Montelukast Sodium) 10 Mg Tablet, 10 MG PO Q2WK, (Reported) TAKES PRIOR TO CHEMO EVERY 2 WEEKS Sertraline Hcl (Sertraline HCl) 50 Mg Tab, 100 MG PO DAILY, (Reported) Tamsulosin HCl (Flomax) 0.4 Mg Cap, 0.4 MG PO QHS, (Reported) Tiotropium [place] (Spiriva Respimat) 4 Gm Mist.inhal, 2 PUFFS INH DAILY, (Reported) Scheduled PRN Acetaminophen (Acetaminophen) 325 Mg Tab, 650 MG PO Q4H PRN for PAIN, (Reported) Albuterol Sulfate (Ventolin Hfa) 18 Gm Hfa.aer.ad, 2 PUFF INH Q4H PRN for SHORTNESS OF BREATH, (Reported) Allergies Coded Allergies: No Known Allergies (Unverified , 11/16/18) FABIÁN BARKSDALE MD December 21, 2018 16:40
== END 2018-12-21 15:05 | disposition home health service (06) | DRG 808 ==
LOC: EDBD 16:13 → M ED 16:13 → M ED INP 18:12 → M ICU 21:00 → M PCU 12-06 21:21 → M MSPAV 12-10 17:38
PROVIDERS: ADMIT Family Medicine; ATTEND Internal Medicine
PROC: 30233Q1 Transfusion of Nonautologous White Cells into Peripheral Vein, Percutaneous Approach (ICD-10-PCS; 2018-12-06)
PROC: B246ZZ4 Ultrasonography of Right and Left Heart, Transesophageal (ICD-10-PCS; 2018-12-13)
PROC: 0DBL8ZX Excision of Transverse Colon, Via Natural or Artificial Opening Endoscopic, Diagnostic (ICD-10-PCS; 2018-12-14)
PROC: 0W3P8ZZ Control Bleeding in Gastrointestinal Tract, Via Natural or Artificial Opening Endoscopic (ICD-10-PCS; principal; 2018-12-14 13:30)
PROC: 0DJD8ZZ Inspection of Lower Intestinal Tract, Via Natural or Artificial Opening Endoscopic (ICD-10-PCS; 2018-12-15)
DX: D70.1 Agranulocytosis secondary to cancer chemotherapy (principal); I33.0 Acute and subacute infective endocarditis; C90.00 Multiple myeloma not having achieved remission; B37.0 Candidal stomatitis; I48.92 Unspecified atrial flutter; I31.3 Pericardial effusion (noninflammatory); G24.01 Drug induced subacute dyskinesia; N18.3 Chronic kidney disease, stage 3 (moderate); I12.9 Hypertensive chronic kidney disease with stage 1 through stage 4 chronic kidney disease, or unspecified chronic kidney disease; D61.810 Antineoplastic chemotherapy induced pancytopenia; M10.9 Gout, unspecified; E78.5 Hyperlipidemia, unspecified; D64.81 Anemia due to antineoplastic chemotherapy; J44.9 Chronic obstructive pulmonary disease, unspecified; E11.22 Type 2 diabetes mellitus with diabetic chronic kidney disease; F41.9 Anxiety disorder, unspecified; N40.0 Benign prostatic hyperplasia without lower urinary tract symptoms; F32.9 Major depressive disorder, single episode, unspecified; K64.8 Other hemorrhoids; E87.70 Fluid overload, unspecified; M17.0 Bilateral primary osteoarthritis of knee; R19.7 Diarrhea, unspecified; B95.5 Unspecified streptococcus as the cause of diseases classified elsewhere; D12.3 Benign neoplasm of transverse colon; Z92.3 Personal history of irradiation; Z86.718 Personal history of other venous thrombosis and embolism; Z95.0 Presence of cardiac pacemaker; Z79.01 Long term (current) use of anticoagulants; Z87.891 Personal history of nicotine dependence; Z79.82 Long term (current) use of aspirin; Z79.899 Other long term (current) drug therapy; Z85.51 Personal history of malignant neoplasm of bladder; Z79.52 Long term (current) use of systemic steroids; Z86.14 Personal history of Methicillin resistant Staphylococcus aureus infection; Z98.1 Arthrodesis status; Z90.5 Acquired absence of kidney

== ENCOUNTER → 2018-12-23 | Outpatient (REF) | payer MEDICARE, OTHER ==
[~2018-12-23] MED LIST changes: +CEFT1INJ5 IV; +DARZ1SOL IV; +FURO40TA2 PO; +METO1TAB32 PO; +SPIR1AER INH; +VITA200021 PO
[2018-12-23 12:18] LABS: BASO % 0.3 % (0.0-1.0); EOS % 1.4 % (0.0-3.0); HEMATOCRIT 30.3 % (42.0-52.0); HEMOGLOBIN 9.6 g/dl (13.5-17.5); LYMPH % 3.1 % (24.0-44.0); MEAN CORPUSCULAR HEMOGLOBIN 27.5 pg (27.0-33.0); MEAN CORPUSCULAR HGB CONC 31.7 g/dl (32.0-36.5); MEAN CORPUSCULAR VOLUME 86.8 fl (80.0-96.0); MONO # 0.1 10^3/uL (0.0-0.8); MONO % 2.8 % (0.0-5.0); NEUTROPHILS # 2.6 10^3/uL (1.8-7.7); NEUTROPHILS % 90.7 % (36.0-66.0); RED BLOOD COUNT 3.49 10^6/uL (4.30-6.10); WHITE BLOOD COUNT 2.9 10^3/uL (4.0-10.0)
[2018-12-23 13:18] LABS: LYMPH # 0.1 10^3/uL (1.5-4.5); PLATELET COUNT, AUTOMATED 58 10^3/uL (150-450)
[2018-12-23 13:24] LABS: ERYTHROCYTE SEDIMENTATION RATE 33 mm/hr (0-20)
[2018-12-23 13:28] LABS: ALBUMIN 2.5 GM/DL (3.2-5.2); BILIRUBIN,TOTAL 0.6 MG/DL (0.2-1.0); C REACTIVE PROTEIN QUANTITATIV 10.9 MG/DL (0.00-0.30); CALCIUM LEVEL 7.9 MG/DL (8.8-10.2); CREATININE FOR GFR 1.67 MG/DL (0.70-1.30); GLOMERULAR FILTRATION RATE 43.3 (>42); POTASSIUM SERUM 3.7 MEQ/L (3.5-5.1); TOTAL PROTEIN 5.3 GM/DL (6.4-8.2)
== END ==
LOC: M SHH 11:10
PROVIDERS: ATTEND Internal Medicine Infectious Disease
DX: D70.9 Neutropenia, unspecified (principal); R50.81 Fever presenting with conditions classified elsewhere

== ENCOUNTER 2018-12-25 02:05 | Inpatient (IN) | payer MEDICARE, OTHER ==
[~2018-12-25] VITALS: Ht 182.9 cm; Wt 114.0 kg
[~2018-12-25 02:05] MED LIST changes: -CEFT1INJ5 IV
[2018-12-25 03:01] LABS: EOS % 1.3 % (0.0-3.0); HEMATOCRIT 28.2 % (42.0-52.0); HEMOGLOBIN 9.2 g/dl (13.5-17.5); LYMPH % 4.8 % (24.0-44.0); MEAN CORPUSCULAR HEMOGLOBIN 28.2 pg (27.0-33.0); MEAN CORPUSCULAR HGB CONC 32.6 g/dl (32.0-36.5); MEAN CORPUSCULAR VOLUME 86.5 fl (80.0-96.0); MONO # 0.1 10^3/uL (0.0-0.8); MONO % 3.5 % (0.0-5.0); NEUTROPHILS % 86.9 % (36.0-66.0); RED BLOOD COUNT 3.26 10^6/uL (4.30-6.10); WHITE BLOOD COUNT 2.3 10^3/uL (4.0-10.0)
[2018-12-25 03:14] LABS: CALCIUM LEVEL 7.9 MG/DL (8.8-10.2); CREATININE FOR GFR 1.93 MG/DL (0.70-1.30); GLOMERULAR FILTRATION RATE 36.6 (>42); POTASSIUM SERUM 3.4 MEQ/L (3.5-5.1)
[2018-12-25 03:31] LABS: LYMPH # 0.1 10^3/uL (1.5-4.5)
[2018-12-25 03:32] LABS: PLATELET COUNT, AUTOMATED 54 10^3/uL (150-450)
[2018-12-25] MEDS ORDERED: MOM 30ML SUSPENSION UDC PO PRN (04:30)
[2018-12-25] MEDS ORDERED: ACETAMINOPHEN TAB 650MG DOSE (2X325MG) PO PRN (04:30)
--- NOTE | 2018-12-25 04:40 | HPEPDOC ---
General Date of Admission December 25, 2018 at 04:23 Chief Complaint The patient is a 73-year-old male admitted with a reason for visit of FEVER. Source: Patient, Family Exam Limitations: No limitations Timing/Duration: 4-6 hours Severity: Mild Associated Symptoms: Fever, Chills History of Present Illness 73 yo male with PMH of a. flutter and third degree AV block with pacemaker, multiple myeloma, DVT, COPD, multiple myeloma, and CKD with recent diagnosis of acute bacterial endocarditis with Streptococcus infantarius bacteremia presents to [facility] ER due to fever of 102F at home. It is noted that patient has a PICC for Ceftriaxone and who was just d/c from [facility] on 12/21/18. Patient reported chills and stated that he feels warm the day prior to admission, and his measured his oral temp to be 102F. It is noted that patient also has diarrhea developing but patient reported no symptoms other than fever, chills, and increased generalized weakness. reported that pt has not been able to walk since being d/c home. Home Medications Scheduled Acyclovir (Acyclovir) 400 Mg Tablet, 400 MG PO BID, (Reported) Allopurinol (Zyloprim) 300 Mg Tablet, 300 MG PO DAILY, (Reported) Apixaban (Eliquis) 5 Mg Tab, 5 MG PO BID, (Reported) Aspirin (Aspirin EC) 81 Mg Tab, 81 MG PO QPM, (Reported) Atorvastatin Calcium (Atorvastatin Calcium) 20 Mg Tab, 20 MG PO QHS, (Reported) Ceftriaxone Sodium (Ceftriaxone) 1 Gm Vial, 2 GM IV DAILY, (Reported) SPOUSE ADMINISTERS THROUGH PORT DAILY Cholecalciferol (Vitamin D3) (Vitamin D3) 2,000 Unit Capsule, 2,000 UNIT PO DAILY, (Reported) Dexamethasone (Dexamethasone) 4 Mg Tablet, 20 MG PO Q2WK, (Reported) TAKES ON THE WEDNESDAY BEFORE CHEMO ([id number]) Famotidine (Famotidine) 20 Mg Tab, 20 MG PO DAILY, (Reported) Furosemide (Furosemide) 40 Mg Tablet, 40 MG PO BID, (Reported) Metoprolol Succinate (Metoprolol Succinate) 25 Mg Tab.er.24h, 25 MG PO BID, (Reported) Montelukast Sodium (Montelukast Sodium) 10 Mg Tablet, 10 MG PO Q2WK, (Reported) TAKES PRIOR TO CHEMO EVERY 2 WEEKS Sertraline Hcl (Sertraline HCl) 50 Mg Tab, 100 MG PO DAILY, (Reported) Tamsulosin HCl (Flomax) 0.4 Mg Cap, 0.4 MG PO QHS, (Reported) Tiotropium [place] (Spiriva Respimat) 4 Gm Mist.inhal, 2 PUFFS INH DAILY, (Reported) Scheduled PRN Acetaminophen (Acetaminophen) 325 Mg Tab, 650 MG PO Q4H PRN for PAIN, (Reported) Albuterol Sulfate (Ventolin Hfa) 18 Gm Hfa.aer.ad, 2 PUFF INH Q4H PRN for SHORTNESS OF BREATH, (Reported) Allergies Coded Allergies: No Known Allergies (Unverified , 11/16/18) Past Medical History Medical History 1. Transitional cell carcinoma, status post right nephroureterectomy in 2001 2. diffuse large B-cell lymphoma in 2015 s/p chemo and radiation 3. 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 CKD stage 3. One kidney on left side 5. Hypertension 6. Gout 7. PMH of DVT 8. Third-degree AV block, status post pacemaker insertion 11/26/2017 9. A. flutter Surgical History 1. Laminectomy done by Dr. Javier 2012. 2. TURP 3. Permanent pacemaker done by Dr. Lobato 11/26/2017 4. Right orchiectomy January 2016 5. Right ureteral nephrectomy 2001 6. 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 moist/pink Neck Exam: Positive: Supple; Negative: JVD Chest Exam: Positive: Clear to auscultation, Normal air movement; Negative: Rales, Rhonchi, Wheezing Heart Exam: Positive: Rate Normal, Regular Rhythm, Normal S1, Normal S2; Negative: Murmurs Abdomen Exam: Positive: Normal bowel sounds, Soft; Negative: Tenderness Skin Exam: Positive: Nl turgor and temperature Neuro Exam: Positive: Normal Speech Psych Exam: Positive: Mental status NL, Memory Intact, Oriented x 3 Vital Signs Vital Signs Date Time Temp Pulse Resp B/P (MAP) Pulse Ox O2 Delivery O2 Flow Rate FiO2 12/25/18 02:27 98.3 88 18 80/68 (72) 90 Nasal Cannula Laboratory Data Labs 24H Laboratory Tests 2 12/25/18 02:46: Immature Granulocyte % (Auto) 3.5H, White Blood Count 2.3L, Red Blood Count 3.26L, Hemoglobin 9.2L, Hematocrit 28.2L, Mean Corpuscular Volume 86.5, Mean Corpuscular Hemoglobin 28.2, Mean Corpuscular Hemoglobin Concent 32.6, Red Cell Distribution Width 24.7H, Platelet Count 54L, Neutrophils (%) (Auto) 86.9H, Lymphocytes (%) (Auto) 4.8L, Monocytes (%) (Auto) 3.5, Eosinophils (%) (Auto) 1.3, Basophils (%) (Auto) 0.0, Neutrophils # (Auto) 2.0, Lymphocytes # (Auto) 0.1L, Monocytes # (Auto) 0.1, Eosinophils # (Auto) 0.0, Basophils # (Auto) 0.0, Nucleated Red Blood Cells % (auto) 0.0, Immature Platelet Fraction 3.2, Anion Gap 10, Glomerular Filtration Rate 36.6L, Lactic Acid Level 2.0, Blood Urea Nitrogen 42H, Creatinine 1.93H, Sodium Level 137, Potassium Level 3.4L, Chloride Level 104, Carbon Dioxide Level 23, Calcium Level 7.9L CBC/BMP Laboratory Tests 12/25/18 02:46 Red Blood Count 3.26 L, Mean Corpuscular Volume 86.5, Mean Corpuscular Hemoglobin 28.2, Mean Corpuscular Hemoglobin Concent 32.6, Red Cell Distribution Width 24.7 H, Neutrophils (%) (Auto) 86.9 H, Lymphocytes (%) (Auto) 4.8 L, Monocytes (%) (Auto) 3.5, Eosinophils (%) (Auto) 1.3, Basophils (%) (Auto) 0.0, Neutrophils # (Auto) 2.0, Lymphocytes # (Auto) 0.1 L, Monocytes # (Auto) 0.1, Eosinophils # (Auto) 0.0, Basophils # (Auto) 0.0, Calcium Level 7.9 L Microbiology Microbiology 12/25/18 Blood Culture, Received Pending Problems (1) Endocarditis Status: Acute Problem Text: fever at 102F 12/24/18 pm and chills likely 2/2 endocarditis. On Ceftriaxone via PICC line. Presented with neutropenia with no current fever; PMH of febrile neutropenia d/t endocarditis. Cont Ceftraixone via PICC line. Consider ID consult in the morning. Tylenol PRN fever and vital signs as scheduled. Continue to monitor the pt. R/o C. diff due to recent antibiotic use; probiotics QD. Blood cx pending (2) Acute kidney injury superimposed on CKD Problem Text: creatinine at 1.93 elevated compared to baseline around 1.25. PMH of CKD with GFR baseline 50-55; current GFR 36.6. 1 time does of 500LR bolus given. PT tolerating PO diet well. Start IV NS at 80ml/hr. (3) Hypertension Status: Chronic Problem Text: Pt most recent BP 80/60. Hold home BP med for now. 1 of 500ml LR bolus given; pt will be on IVNS at rate of 80ml/hr as pt also has DUSTIN on CKD. Pt denies any dizziness or lightheadedness. Cont to monitor the pt; vital signs scheduled. (4) Gout Status: Chronic Problem Text: Continue home med Allopurinol. Continue to monitor the pt. (5) DVT (deep venous thrombosis) Problem Text: continue home med eliquis. TEDS and SCD. Cont to monitor the pt. (6) Depression Status: Chronic Problem Text: Cont home med Sertraline. Cont to monitor the pt (7) Hypokalemia Status: Acute Problem Text: one time dose of KCl 40meq PO ordered. Cont home med KCl 40meq PO QD. F/u with BMP tmrw morning. (8) Neutropenia Status: Chronic Problem Text: WBC at 2300. PM of neutropenia and neutropenic fever. Multiple myeloma on chemo. Goal remain WBC>1500. F/u with CBC daily. Neupogen if WBC below 1500. (9) COPD (chronic obstructive pulmonary disease) Problem Text: Cont home med Spiriva and albuterol PRN. Vital signs as scheduled. Pt denies any resp symptoms. Oxygen therapy to keep ox sat 88% to 92%. Cont to monitor the pt. Plan / VTE VTE Prophylaxis Ordered?: Yes (TEDS and SCD) Plan IVF: Initiate Diet: Continue Current Therapy: PT, OT Medications: Replete Electrolytes PO Diagnostics: Repeat Labs in LESLYE PERRY DO December 25, 2018 04:40
[2018-12-25] MEDS ORDERED: CEFT1INJ5 IV (04:57)
[2018-12-25] MEDS ORDERED: METO1TAB32 PO (04:57)
[2018-12-25] MEDS ORDERED: DEXA4TA PO (04:57)
[2018-12-25] MEDS ORDERED: FURO40TA2 PO (04:58)
[2018-12-25] MEDS ORDERED: LR 500 ML IV ONE (05:15)
[2018-12-25] MEDS ORDERED: POTASSIUM CHLORIDE 10 MEQ SR TABLET PO ONE (05:15)
[2018-12-25] MEDS ORDERED: ALBUTEROL 90 MCG/ACT 8GM HFA INHALER INH PRN (05:30)
[2018-12-25] MEDS ORDERED: NS 1,000 ML IV SCH (05:30)
[2018-12-25 05:50] LABS: INFLUENZA A AMPLIFICATION NEGATIVE (NEGATIVE); INFLUENZA B AMPLIFICATION NEGATIVE (NEGATIVE)
[2018-12-25] MEDS: TIOTROPIUM INHALER/CAPSULE (SPIRIVA) INH SCH (08:00)
[2018-12-25] MEDS: ACYCLOVIR 200 MG CAPSULE PO SCH ×2 (08:58→20:42)
[2018-12-25] MEDS: ALLOPURINOL 300 MG TAB PO SCH (08:58)
[2018-12-25] MEDS: APIXABAN 5 MG TAB (ELIQUIS) PO SCH ×2 (08:58→20:42)
[2018-12-25] MEDS: SERTRALINE 100 MG TAB PO SCH (08:58)
[2018-12-25] MEDS: VITAMIN D 1,000 INTERNATIONAL UNITS TABLET PO SCH (08:58)
[2018-12-25] MEDS: FAMOTIDINE 20 MG TAB PO SCH (08:58)
[2018-12-25] MEDS: LACTOBACILLUS ACIDOPHILUS CAP (BACID) PO SCH (08:59)
[2018-12-25] MEDS ORDERED: MONTELUKAST 10 MG TAB PO SCH (09:00)
[2018-12-25] MEDS: METOPROLOL SUCC *XL* 25MG TAB (TopROL *XL*) PO SCH ×2 (09:00→20:42)
--- NOTE | 2018-12-25 11:57 | IPNPDOC ---
Subjective Date Seen The patient was seen on 12/25/18. Subjective Chief Complaint/HPI Patient seen and examined at bedside. Reports that he is feeling much better today, and denies any acute complaints of fevers, chills, chest pain, palpitations, abdominal pain, or any nausea/vomiting/diarrhea. Objective Physical Examination General Exam: Positive: Alert, Cooperative, No Acute Distress ENT Exam: Positive: Atraumatic, Mucous membr. moist/pink Neck Exam: Negative: JVD Chest Exam: Positive: Clear to auscultation, Normal air movement Heart Exam: Positive: Rate Normal, Normal S1, Normal S2 Abdomen Exam: Positive: Soft; Negative: Tenderness Extremity Exam: Negative: Tenderness Psych Exam: Positive: Mental status NL, Memory Intact, Oriented x 3 Assessment /Plan Plan/VTE VTE Prophylaxis Ordered?: Yes (TEDS and SCD) Plan Hx of Febrile neutropenia 2/2 Acute bacterial endocarditis with Streptococcus infantarius bacteremia s/p recent hospitalization from 12/04-12/21/18 at which time a ISMAEL done on 12/13 was found to be positive for vegetations after the patient was noted to bacteremic from Streptococcus infantarius Cont Ceftriaxone 2g q24h until 01/05 Patient was readmitted here last night due to concerns of an episode of fever at home, and generalized weakness The patient has remained afebrile here and hemodynamically stable He denies any acute complaints at this time. Physical therapy ordered for functional optimization We will continue to monitor the patient Pancytopenia 2/2 Hx of Chemotherapy Follows with Dr. Rice of Oncology We will continue to monitor the patient at this time, and consider Neupogen if his white blood cell count continues to further drop No indication for packed red blood cell or platelet transfusion at this time A flutter / Hx of Pacemaker Continue with metoprolol, Eliquis Multiple Myeloma Patient's treatment regimen includes Revlimid and Daratumumab, with last dose 3 weeks ago c/w Acyclovir for prophylaxis Follow-up with Dr. Rice as outpatient Hx of DVT On Eliquis COPD Continue meds as ordered Gout Allopurinol DLP Atorvastatin Depression Sertraline BPH Tamsulosin GERD Famotidine DVT prophylaxis On Eliquis VS, I&O, 24H, Fishbone Vital Signs/I&O Vital Signs Date Time Temp Pulse Resp B/P (MAP) Pulse Ox O2 Delivery O2 Flow Rate FiO2 12/25/18 07:35 72 18 91 Nasal Cannula 2.0 12/25/18 07:30 119/69 (86) 12/25/18 06:06 97.8 Laboratory Data 24H LABS Laboratory Tests 2 12/25/18 02:46: Immature Granulocyte % (Auto) 3.5H, White Blood Count 2.3L, Red Blood Count 3.26L, Hemoglobin 9.2L, Hematocrit 28.2L, Mean Corpuscular Volume 86.5, Mean Corpuscular Hemoglobin 28.2, Mean Corpuscular Hemoglobin Concent 32.6, Red Cell Distribution Width 24.7H, Platelet Count 54L, Neutrophils (%) (Auto) 86.9H, Lymphocytes (%) (Auto) 4.8L, Monocytes (%) (Auto) 3.5, Eosinophils (%) (Auto) 1.3, Basophils (%) (Auto) 0.0, Neutrophils # (Auto) 2.0, Lymphocytes # (Auto) 0.1L, Monocytes # (Auto) 0.1, Eosinophils # (Auto) 0.0, Basophils # (Auto) 0.0, Nucleated Red Blood Cells % (auto) 0.0, Immature Platelet Fraction 3.2, Anion Gap 10, Glomerular Filtration Rate 36.6L, Lactic Acid Level 2.0, Blood Urea Nitrogen 42H, Creatinine 1.93H, Sodium Level 137, Potassium Level 3.4L, Chloride Level 104, Carbon Dioxide Level 23, Calcium Level 7.9L 12/25/18 05:07: Influenza Type A (RT-PCR) NEGATIVE, Influenza Type B (RT-PCR) NEGATIVE CBC/BMP Laboratory Tests 12/25/18 02:46 Red Blood Count 3.26 L, Mean Corpuscular Volume 86.5, Mean Corpuscular Hemoglob in 28.2, Mean Corpuscular Hemoglobin Concent 32.6, Red Cell Distribution Width 24.7 H, Neutrophils (%) (Auto) 86.9 H, Lymphocytes (%) (Auto) 4.8 L, Monocytes (%) (Auto) 3.5, Eosinophils (%) (Auto) 1.3, Basophils (%) (Auto) 0.0, Neutrophils # (Auto) 2.0, Lymphocytes # (Auto) 0.1 L, Monocytes # (Auto) 0.1, Eosinophils # (Auto) 0.0, Basophils # (Auto) 0.0, Calcium Level 7.9 L Microbiology Microbiology 12/25/18 Blood Culture, Received Pending WALDO TORO MD December 25, 2018 11:57
[2018-12-25 12:00] VITALS: BP 138/78
--- NOTE | 2018-12-25 12:14 | REP ---
CHEST, PORTABLE: AP portable view of the chest is performed and compared to a prior study 12/17/2018 as well as other prior exams. There is mild cardiomegaly again noted. There are mild chronic interstitial changes with no acute infiltrate. There is mild tortuosity of the thoracic aorta. The mediastinal silhouette is unchanged. Right dual lead pacemaker is again noted as well as left central venous catheter. IMPRESSION: Mild cardiomegaly. Chronic changes appear stable with new infiltrate. Electronically Signed by Joshua Saab MD 12/25/2018 12:30 P
[2018-12-25 14:00] VITALS: BP 134/60
[2018-12-25] MEDS: cefTRIAXone SOD 2 GM in D5W MINI-BAG PLUS 50 ML IV SCH (15:05)
[2018-12-25] MEDS: ATORVASTATIN 20 MG TAB PO SCH (20:42)
[2018-12-25] MEDS: ASPIRIN 81 MG ENTERIC TAB PO SCH (20:42)
[2018-12-25] MEDS: TAMSULOSIN 0.4 MG CAP PO SCH (20:42)
[2018-12-25 22:00] VITALS: BP 135/73
[2018-12-26 06:00] VITALS: BP 108/65
[2018-12-26 06:51] LABS: HEMATOCRIT 27.1 % (42.0-52.0); HEMOGLOBIN 8.6 g/dl (13.5-17.5); LYMPH % 3.5 % (24.0-44.0); MEAN CORPUSCULAR HEMOGLOBIN 27.9 pg (27.0-33.0); MEAN CORPUSCULAR HGB CONC 31.7 g/dl (32.0-36.5); MONO # 0.1 10^3/uL (0.0-0.8); NEUTROPHILS # 1.8 10^3/uL (1.8-7.7); NEUTROPHILS % 89.5 % (36.0-66.0); RED BLOOD COUNT 3.08 10^6/uL (4.30-6.10)
[2018-12-26 07:21] LABS: CALCIUM LEVEL 7.9 MG/DL (8.8-10.2); CREATININE FOR GFR 1.71 MG/DL (0.70-1.30); GLOMERULAR FILTRATION RATE 42.1 (>42); POTASSIUM SERUM 3.4 MEQ/L (3.5-5.1)
[2018-12-26 07:22] LABS: LYMPH # 0.1 10^3/uL (1.5-4.5); PLATELET COUNT, AUTOMATED 53 10^3/uL (150-450)
[2018-12-26] MEDS: TIOTROPIUM INHALER/CAPSULE (SPIRIVA) INH SCH (07:57)
[2018-12-26] MEDS ORDERED: POTASSIUM CHLORIDE 10 MEQ SR TABLET PO ONE (08:00)
[2018-12-26] MEDS: VITAMIN D 1,000 INTERNATIONAL UNITS TABLET PO SCH (08:34)
[2018-12-26] MEDS: SERTRALINE 100 MG TAB PO SCH (08:34)
[2018-12-26] MEDS: FAMOTIDINE 20 MG TAB PO SCH (08:34)
[2018-12-26] MEDS: LACTOBACILLUS ACIDOPHILUS CAP (BACID) PO SCH (08:34)
[2018-12-26] MEDS: ALLOPURINOL 300 MG TAB PO SCH (08:34)
[2018-12-26] MEDS: ACYCLOVIR 200 MG CAPSULE PO SCH ×2 (08:34→22:03)
[2018-12-26] MEDS: APIXABAN 5 MG TAB (ELIQUIS) PO SCH ×2 (08:34→22:04)
[2018-12-26] MEDS: METOPROLOL SUCC *XL* 25MG TAB (TopROL *XL*) PO SCH ×2 (08:35→21:00)
--- NOTE | 2018-12-26 10:51 | IPNPDOC ---
Subjective Date Seen The patient was seen on 12/26/18. Subjective Chief Complaint/HPI Patient seen and examined at bedside. No acute overnight events noted. He is scheduled to work with physical therapy this morning. Objective Physical Examination General Exam: Positive: Alert, Cooperative, No Acute Distress ENT Exam: Positive: Atraumatic, Mucous membr. moist/pink Neck Exam: Negative: JVD Chest Exam: Positive: Clear to auscultation, Normal air movement Heart Exam: Positive: Rate Normal, Normal S1, Normal S2 Abdomen Exam: Positive: Soft; Negative: Tenderness Extremity Exam: Negative: Tenderness Psych Exam: Positive: Mental status NL, Memory Intact, Oriented x 3 Assessment /Plan Plan/VTE VTE Prophylaxis Ordered?: Yes (TEDS and SCD) Plan Hx of Febrile neutropenia 2/2 Acute bacterial endocarditis with Streptococcus infantarius bacteremia s/p recent hospitalization from 12/04-12/21/18 at which time a ISMAEL done on 12/13 was found to be positive for vegetations after the patient was noted to bacteremic from Streptococcus infantarius Cont Ceftriaxone 2g q24h until 01/05 Patient was readmitted here due to concerns of an episode of fever at home, and generalized weakness The patient has remained afebrile here and hemodynamically stable He denies any acute complaints at this time. Physical therapy ordered for functional optimization We will continue to monitor the patient Pancytopenia 2/2 Hx of Chemotherapy Follows with Dr. Rice of Oncology We will continue to monitor the patient at this time, and consider Neupogen if his ANC drops <1500 No indication for packed red blood cell or platelet transfusion at this time CKD Stage III Serum Cr at baseline A flutter / Hx of Pacemaker Continue with metoprolol, Eliquis Multiple Myeloma Patient's treatment regimen includes Revlimid and Daratumumab, with last dose 3 weeks ago c/w Acyclovir for prophylaxis Follow-up with Dr. Rice as outpatient Hx of DVT On Eliquis COPD Continue meds as ordered Gout Allopurinol DLP Atorvastatin Depression Sertraline BPH Tamsulosin GERD Famotidine DVT prophylaxis On Eliquis VS, I&O, 24H, Fishbone Vital Signs/I&O Vital Signs Date Time Temp Pulse Resp B/P (MAP) Pulse Ox O2 Delivery O2 Flow Rate FiO2 12/26/18 08:35 89 108/65 12/26/18 06:00 98.8 16 94 2.0 12/25/18 11:54 Nasal Cannula I&O- Last 24 Hours up to 6 AM 12/26/18 05:59 Intake Total 1760 ml Output Total 600 ml Balance 1160 ml Laboratory Data 24H LABS Laboratory Tests 2 12/26/18 05:45: Immature Granulocyte % (Auto) 1.0, White Blood Count 2.0L, Red Blood Count 3.08L, Hemoglobin 8.6L, Hematocrit 27.1L, Mean Corpuscular Volume 88.0, Mean Corpuscular Hemoglobin 27.9, Mean Corpuscular Hemoglobin Concent 31.7L, Red Cell Distribution Width 24.8H, Platelet Count 53L, Neutrophils (%) (Auto) 89.5H, Lymphocytes (%) (Auto) 3.5L, Monocytes (%) (Auto) 4.0, Eosinophils (%) (Auto) 2.0, Basophils (%) (Auto) 0.0, Neutrophils # (Auto) 1.8, Lymphocytes # (Auto) 0.1L, Monocytes # (Auto) 0.1, Eosinophils # (Auto) 0.0, Basophils # (Auto) 0.0, Nucleated Red Blood Cells % (auto) 1.5H, Immature Platelet Fraction 2.6, Anion Gap 9, Glomerular Filtration Rate 42.1, Blood Urea Nitrogen 33H, Creatinine 1.71H, Sodium Level 136, Potassium Level 3.4L, Chloride Level 106, Carbon Dioxide Level 21, Calcium Level 7.9L CBC/BMP Laboratory Tests 12/26/18 05:45 Red Blood Count 3.08 L, Mean Corpuscular Volume 88.0, Mean Corpuscular Hemoglobin 27.9, Mean Corpuscular Hemoglobin Concent 31.7 L, Red Cell Distribution Width 24.8 H, Neutrophils (%) (Auto) 89.5 H, Lymphocytes (%) (Auto) 3.5 L, Monocytes (%) (Auto) 4.0, Eosinophils (%) (Auto) 2.0, Basophils (%) (Auto) 0.0, Neutrophils # (Auto) 1.8, Lymphocytes # (Auto) 0.1 L, Monocytes # (Auto) 0.1, Eosinophils # (Auto) 0.0, Basophils # (Auto) 0.0, Calcium Level 7.9 L Microbiology Microbiology 12/25/18 Blood Culture - Preliminary, Resulted No growth after 24 hours . All specim... WALDO TORO MD December 26, 2018 10:51
[2018-12-26 14:00] VITALS: BP 117/58
[2018-12-26] MEDS: FUROSEMIDE 40 MG TAB PO SCH (16:38)
[2018-12-26] MEDS: cefTRIAXone SOD 2 GM in D5W MINI-BAG PLUS 50 ML IV SCH (16:38)
[2018-12-26 22:00] VITALS: BP 110/65
[2018-12-26] MEDS: ASPIRIN 81 MG ENTERIC TAB PO SCH (22:04)
[2018-12-26] MEDS: TAMSULOSIN 0.4 MG CAP PO SCH (22:04)
[2018-12-26] MEDS: ATORVASTATIN 20 MG TAB PO SCH (22:04)
[2018-12-27 06:00] VITALS: BP 110/64
[2018-12-27 06:39] LABS: HEMATOCRIT 26.4 % (42.0-52.0); HEMOGLOBIN 8.3 g/dl (13.5-17.5); MEAN CORPUSCULAR HEMOGLOBIN 27.2 pg (27.0-33.0); MEAN CORPUSCULAR HGB CONC 31.4 g/dl (32.0-36.5); MEAN CORPUSCULAR VOLUME 86.6 fl (80.0-96.0); RED BLOOD COUNT 3.05 10^6/uL (4.30-6.10)
[2018-12-27 06:55] LABS: CALCIUM LEVEL 7.9 MG/DL (8.8-10.2); CREATININE FOR GFR 1.66 MG/DL (0.70-1.30); GLOMERULAR FILTRATION RATE 43.6 (>42); POTASSIUM SERUM 3.7 MEQ/L (3.5-5.1)
[2018-12-27 07:04] LABS: PLATELET COUNT, AUTOMATED 56 10^3/uL (150-450)
[2018-12-27] MEDS: TIOTROPIUM INHALER/CAPSULE (SPIRIVA) INH SCH (08:00)
[2018-12-27] MEDS: APIXABAN 5 MG TAB (ELIQUIS) PO SCH ×2 (09:07→21:26)
[2018-12-27] MEDS: VITAMIN D 1,000 INTERNATIONAL UNITS TABLET PO SCH (09:07)
[2018-12-27] MEDS: ACYCLOVIR 200 MG CAPSULE PO SCH ×2 (09:07→21:26)
[2018-12-27] MEDS: LACTOBACILLUS ACIDOPHILUS CAP (BACID) PO SCH (09:07)
[2018-12-27] MEDS: SERTRALINE 100 MG TAB PO SCH (09:07)
[2018-12-27] MEDS: METOPROLOL SUCC *XL* 25MG TAB (TopROL *XL*) PO SCH ×2 (09:08→21:27)
[2018-12-27] MEDS: FUROSEMIDE 40 MG TAB PO SCH ×2 (09:09→16:33)
[2018-12-27] MEDS: FAMOTIDINE 20 MG TAB PO SCH (09:09)
[2018-12-27] MEDS: ALLOPURINOL 300 MG TAB PO SCH (09:09)
[2018-12-27 14:00] VITALS: BP 103/70
--- NOTE | 2018-12-27 14:23 | IPNPDOC ---
Subjective Date Seen The patient was seen on 12/27/18. Subjective Chief Complaint/HPI Patient comfortable, certainly bedside. Offers no new complaints at the present time General: Denies: ROS Unobtainable, Chills, Night Sweats, Fatigue, Malaise, Normal Appetite, Other Symptoms Constitutional: Denies: Chills, Fever, Malaise, Night Sweats, Weakness, Fatigue, Weight Loss, Lethargy, Other Eyes: Denies: Pain, Vision change, Conjunctivae inflammation, Eyelid inflammat ion, Redness, Other ENT: Denies: Head Aches, Ear Pain, Dysphagia, Sinus Congestion, Post Nasal Drip, Sore Throat, Epistaxis, Other Symptoms Skin: Denies: Rash, Lesions, Jaundice, Bruising, Itching, Dry, Breakdown, Nail Changes, Other Pulmonary: Denies: Dyspnea, Cough, Pleuritic Chest Pain, Other Symptoms Cardiovascular: Denies: Chest Pain, Palpitations, Orthopnea, Paroxysmal Noc. Dyspnea, Edema, Lt Headedness, Other Symptoms Gastrointestinal: Denies: Nausea, Vomiting, Abdominal Pain, Diarrhea, Constipation, Melena, Hematochezia, Other Symptoms Genitourinary: Denies: Dysuria, Frequency, Incontinence, Hematuria, Retention, Other Symptoms Hematologic: Denies: Bruising, Bleeding Excessively, Petecchia, Purpura, Enlarged Lymph Nodes, Other Hematologic Endocrine: Denies: Polydipsia, Polyphagia, Polyuria, Heat Intolerance, Cold Intolerance, Other Endocrine Sx Musculoskeletal: Denies: Neck Pain, Back Pain, Shoulder Pain, Arm Pain, Hand Pain, Leg Pain, Foot Pain, Joint Pain, Muscle Pain, Spasms, Other Symptoms Neurological: Denies: Weakness, Numbness, Change in speech, Confusion Psych: Denies: Mood Normal, Anxiety, Depression, Memory Issues, Thoughts of Self Harm, Anger, Thoughts of Harming Other, Other Psych Objective Physical Examination General Exam: Positive: Alert, Cooperative, No Acute Distress ENT Exam: Positive: Atraumatic, Mucous membr. moist/pink Neck Exam: Negative: JVD Chest Exam: Positive: Clear to auscultation, Normal air movement Heart Exam: Positive: Rate Normal, Normal S1, Normal S2 Abdomen Exam: Positive: Soft; Negative: Tenderness Extremity Exam: Negative: Tenderness Psych Exam: Positive: Mental status NL, Memory Intact, Oriented x 3 A-FIB/CHADSVASC A-FIB History Current/History of A-Fib/PAF?: No Assessment /Plan Problems (1) Dehydration Problem Text: Dehydration secondary to chemotherapy associated diarrhea and poor oral intake s/p PEG Tube placement The poor oral intake is likely related to painful swallowing related to chemotherapy, and consequent mucositis PICC Line placed on 12/15/18 for TPN, last dose 12/23/18 s/p PEG Tube placement on 12/22/18--> patient tolerating Tube Feedings without any acute complaints Tube feeding prescription was sent to his pharmacy on 12/25 however it was noted to be cost prohibitive. PFS on board to further ascertain cost We will continue to monitor the patient at this time PT on board for functional optimization Pancytopenia 2/2 Chemotherapy Hemoglobin stable No indication for transfusion at this time. Heme/Onc on board Oral thrush s/p Diflucan trial Generalized weakness: PT/OT on board for functional optimization Hypertension Continue metoprolol with holding parameters Hx of Squamos Cell Ca of the RUL, Left Paratracheal Area, and RLL Nodue Hematology/Oncology on board DVT prophylaxis: SCDs Dispo: Tube feeding started. PT on board for functional optimization. We will continue to monitor the patient's progress. Plan/VTE VTE Prophylaxis Ordered?: Yes (TEDS and SCD) VS, I&O, 24H, Fishbone Vital Signs/I&O Vital Signs Date Time Temp Pulse Resp B/P (MAP) Pulse Ox O2 Delivery O2 Flow Rate FiO2 12/27/18 09:08 112/88 12/27/18 09:00 5.0 12/27/18 06:00 98.8 88 20 90 12/25/18 11:54 Nasal Cannula I&O- Last 24 Hours up to 6 AM 12/27/18 06:00 Intake Total 2300 ml Output Total 1525 ml Balance 775 ml Laboratory Data 24H LABS Laboratory Tests 2 12/27/18 06:13: Anion Gap 7L, Glomerular Filtration Rate 43.6, Blood Urea Nitrogen 30H, Creatinine 1.66H, Sodium Level 137, Potassium Level 3.7, Chloride Level 106, Carbon Dioxide Level 24, Calcium Level 7.9L 12/27/18 06:14: Nucleated Red Blood Cells % (auto) 0.0, Immature Platelet Fraction 2.4 CBC/BMP Laboratory Tests 12/27/18 06:13 Calcium Level 7.9 L 12/27/18 06:14 Red Blood Count 3.05 L, Mean Corpuscular Volume 86.6, Mean Corpuscular Hemoglobin 27.2, Mean Corpuscular Hemoglobin Concent 31.4 L, Red Cell Distri bution Width 24.4 H Microbiology Microbiology 12/25/18 Blood Culture - Preliminary, Resulted No Growth after 48 hours. All Specime... 12/26/18 Gastrointestinal Tract Panel (PCR) - Final, Complete NURIA LOCKETT MD December 27, 2018 14:23
[2018-12-27] MEDS: cefTRIAXone SOD 2 GM in D5W MINI-BAG PLUS 50 ML IV SCH (16:33)
[2018-12-27] MEDS: ASPIRIN 81 MG ENTERIC TAB PO SCH (21:26)
[2018-12-27] MEDS: ATORVASTATIN 20 MG TAB PO SCH (21:26)
[2018-12-27] MEDS: TAMSULOSIN 0.4 MG CAP PO SCH (21:26)
[2018-12-27 22:00] VITALS: BP 133/79
[2018-12-28 06:00] VITALS: BP 113/56
[2018-12-28 06:46] LABS: HEMATOCRIT 25.8 % (42.0-52.0); HEMOGLOBIN 8.2 g/dl (13.5-17.5); MEAN CORPUSCULAR HEMOGLOBIN 27.8 pg (27.0-33.0); MEAN CORPUSCULAR HGB CONC 31.8 g/dl (32.0-36.5); MEAN CORPUSCULAR VOLUME 87.5 fl (80.0-96.0); RED BLOOD COUNT 2.95 10^6/uL (4.30-6.10)
[2018-12-28 07:06] LABS: PLATELET COUNT, AUTOMATED 54 10^3/uL (150-450); WHITE BLOOD COUNT 1.8 10^3/uL (4.0-10.0)
[2018-12-28 07:13] LABS: CREATININE FOR GFR 1.68 MG/DL (0.70-1.30); POTASSIUM SERUM 3.1 MEQ/L (3.5-5.1)
[2018-12-28] MEDS: TIOTROPIUM INHALER/CAPSULE (SPIRIVA) INH SCH (08:07)
[2018-12-28] MEDS ORDERED: NYSTATIN 100,000 UNITS/GM TOPICAL PWD 15 GM TOP SCH (09:00)
[2018-12-28 09:18] VITALS: BP 124/66
[2018-12-28] MEDS: LACTOBACILLUS ACIDOPHILUS CAP (BACID) PO SCH (09:18)
[2018-12-28] MEDS: ACYCLOVIR 200 MG CAPSULE PO SCH (09:18)
[2018-12-28] MEDS: METOPROLOL SUCC *XL* 25MG TAB (TopROL *XL*) PO SCH (09:18)
[2018-12-28] MEDS: VITAMIN D 1,000 INTERNATIONAL UNITS TABLET PO SCH (09:18)
[2018-12-28] MEDS: FAMOTIDINE 20 MG TAB PO SCH (09:19)
[2018-12-28] MEDS: ALLOPURINOL 300 MG TAB PO SCH (09:19)
[2018-12-28] MEDS: APIXABAN 5 MG TAB (ELIQUIS) PO SCH (09:19)
[2018-12-28] MEDS: FUROSEMIDE 40 MG TAB PO SCH (09:19)
[2018-12-28] MEDS: SERTRALINE 100 MG TAB PO SCH (09:19)
[2018-12-28 14:00] VITALS: BP 103/62
--- NOTE | 2018-12-28 15:10 | DS.PDOC ---
Discharge Summary General Date of Admission December 25, 2018 at 04:23 Date of Discharge 12/28/18 Attending Physician: NURIA LOCKETT MD Discharge Summary PROCEDURES PERFORMED DURING STAY: None. ADMITTING DIAGNOSES: 1. Dehydration. DISCHARGE DIAGNOSES: 1. Dehydration secondary to chemotherapy and diarrhea on tube feeding. COMPLICATIONS/CHIEF COMPLAINT: FEVER. HISTORY OF PRESENT ILLNESS: . HOSPITAL COURSE: Dehydration secondary to chemotherapy associated diarrhea and poor oral intake s/p PEG Tube placement The poor oral intake is likely related to painful swallowing related to chemotherapy, and consequent mucositis PICC Line placed on 12/15/18 for TPN, last dose 12/23/18 s/p PEG Tube placement on 12/22/18--> patient tolerating Tube Feedings without any acute complaints Tube feeding prescription was sent to his pharmacy on 12/25 however it was noted to be cost prohibitive. PFS on board to further ascertain cost We will continue to monitor the patient at this time PT on board for functional optimization Pancytopenia 2/2 Chemotherapy Hemoglobin stable No indication for transfusion at this time. Heme/Onc on board Oral thrush s/p Diflucan trial Generalized weakness: PT/OT on board for functional optimization Hypertension Continue metoprolol with holding parameters Hx of Squamos Cell Ca of the RUL, Left Paratracheal Area, and RLL Nodue Hematology/Oncology on board DVT prophylaxis: SCDs Dispo: Tube feeding started. PT on board for functional optimization. We will continue to monitor the patient's progress.]. DISCHARGE MEDICATIONS: Please see below. ALLERGIES: Please see below. PHYSICAL EXAMINATION ON DISCHARGE: VITAL SIGNS: Please see below. GENERAL: Within normal limits HEENT:. PERRLA NECK: Supple, no JVD CARDIOVASCULAR EXAMINATION:. S1, S2, regular RESPIRATORY EXAMINATION: Clear to A&P ABDOMINAL EXAMINATION:. Benign EXTREMITIES:. No clubbing, cyanosis, edema SKIN: Within normal limits NEUROLOGICAL EXAMINATION:. No deficit PSYCHIATRIC EXAMINATION: To normal limit LABORATORY DATA: Please see below. IMAGING: As above PROGNOSIS: Good ACTIVITY: As tolerated. DIET: As tolerated DISCHARGE PLAN: DISPOSITION: . DISCHARGE INSTRUCTIONS: 1. As above. ITEMS TO FOLLOWUP ON ON OUTPATIENT: 1. As above. DISCHARGE CONDITION: Stable. TIME SPENT ON DISCHARGE: Greater than 40 minutes minutes. Vital Signs/I&Os Vital Signs Date Time Temp Pulse Resp B/P (MAP) Pulse Ox O2 Delivery O2 Flow Rate FiO2 12/28/18 09:18 85 124/66 12/28/18 06:00 98.5 21 92 4.0 12/25/18 11:54 Nasal Cannula I&O- Last 24 Hours up to 6 AM 12/28/18 06:00 Intake Total 1920 ml Output Total 1600 ml Balance 320 ml Laboratory Data Labs 24H Laboratory Tests 2 12/28/18 06:13: Nucleated Red Blood Cells % (auto) 1.1H, Anion Gap 11, Glomerular Filtration Rate 43.0, Blood Urea Nitrogen 30H, Creatinine 1.68H, Sodium Level 138, Potassium Level 3.1L, Chloride Level 106, Carbon Dioxide Level 21, Calcium Level 8.0L CBC/BMP Laboratory Tests 12/28/18 06:13 Red Blood Count 2.95 L, Mean Corpuscular Volume 87.5, Mean Corpuscular Hemoglobin 27.8, Mean Corpuscular Hemoglobin Concent 31.8 L, Red Cell Distribution Width 24.1 H, Calcium Level 8.0 L Microbiology Microbiology 12/25/18 Blood Culture - Preliminary, Resulted No Growth after 72 hours. All specime... 12/26/18 Gastrointestinal Tract Panel (PCR) - Final, Complete Discharge Medications Scheduled Acyclovir (Acyclovir) 400 Mg Tablet, 400 MG PO BID, (Reported) Allopurinol (Zyloprim) 300 Mg Tablet, 300 MG PO DAILY, (Reported) Apixaban (Eliquis) 5 Mg Tab, 5 MG PO BID, (Reported) Aspirin (Aspirin EC) 81 Mg Tab, 81 MG PO QPM, (Reported) Atorvastatin Calcium (Atorvastatin Calcium) 20 Mg Tab, 20 MG PO QHS, (Reported) Ceftriaxone Sodium (Ceftriaxone) 1 Gm Vial, 2 GM IV DAILY, (Reported) SPOUSE ADMINISTERS THROUGH PORT DAILY Cholecalciferol (Vitamin D3) (Vitamin D3) 2,000 Unit Capsule, 2,000 UNIT PO DAILY, (Reported) Dexamethasone (Dexamethasone) 4 Mg Tablet, 20 MG PO Q2WK, (Reported) TAKES ON THE WEDNESDAY BEFORE CHEMO ([id number]) Famotidine (Famotidine) 20 Mg Tab, 20 MG PO DAILY, (Reported) Furosemide (Furosemide) 40 Mg Tablet, 40 MG PO BID, (Reported) Metoprolol Succinate (Metoprolol Succinate) 25 Mg Tab.er.24h, 25 MG PO BID, (Reported) Montelukast Sodium (Montelukast Sodium) 10 Mg Tablet, 10 MG PO Q2WK, (Reported) TAKES PRIOR TO CHEMO EVERY 2 WEEKS Sertraline Hcl (Sertraline HCl) 50 Mg Tab, 100 MG PO DAILY, (Reported) Tamsulosin HCl (Flomax) 0.4 Mg Cap, 0.4 MG PO QHS, (Reported) Tiotropium [place] (Spiriva Respimat) 4 Gm Mist.inhal, 2 PUFFS INH DAILY, (R eported) Scheduled PRN Acetaminophen (Acetaminophen) 325 Mg Tab, 650 MG PO Q4H PRN for PAIN, (Reported) Albuterol Sulfate (Ventolin Hfa) 18 Gm Hfa.aer.ad, 2 PUFF INH Q4H PRN for SHORTNESS OF BREATH, (Reported) Allergies Coded Allergies: No Known Allergies (Unverified , 11/16/18) NURIA LOCKETT MD December 28, 2018 15:10
--- NOTE | 2018-12-31 10:32 | DS.PDOC ---
Discharge Summary General Date of Admission December 25, 2018 at 04:23 Date of Discharge 12/28/18 Attending Physician: NURIA LOCKETT MD Discharge Summary PROCEDURES PERFORMED DURING STAY: None. ADMITTING DIAGNOSES: 1. Febrile neutropenia, recently diagnosed endocarditis, hypertension. DISCHARGE DIAGNOSES: 1. Pancytopenia, febrile neutropenia, history of endocarditis, as security stage III. COMPLICATIONS/CHIEF COMPLAINT: FEVER. HISTORY OF PRESENT ILLNESS: This is 73 years old male with past medical history of atrial flutter, third-degree AV block with pacemaker, multiple myeloma, DVT, COPD, and security stage III was recently diagnosed with acute bacterial endocarditis with Streptococcus infantarius presented to the ER as his has reported patient having fever of 10 2F. Patient was discharged from [facility] on 12/21/2018 with a PICC line and ceftriaxone for endocarditis. According to the records, patient had complained of chills and feeling warm prior to day of admission and he was found to have temperature 102 and was admitted to this hospital with the diagnosis of febrile neutropenia with a history of endocarditis. HOSPITAL COURSE: Patient was admitted with the diagnosis of Federal febrile neutropenia, pancytopenia, possible possible fever but patient remained afebrile during his stay in the hospital. Patient had a PICC line in and has continued receiving history of ceftriaxone as per orders. Regarding his chronic kidney disease. He did receive a one-time bolus of Ringer lactate solution 500 mg IV, but O on. He tolerated diet very well and he also was continued on IV normal saline at 80 mL per hour. Patient also received physical therapy for functional optimization and he was continuously monitored while in the hospital. He was also found to have pancytopenia, but was advised to follow with Dr. Rice from oncology and to consider Neupogen if ANC drops less than 1500, but there was no indication of packed red cells or platelet transfusion at the time of his admission. Patient remained afebrile, asymptomatic and subsequently was discharged back to the rehabilitation facility on all his current medications. DISCHARGE MEDICATIONS: Please see below. ALLERGIES: Please see below. PHYSICAL EXAMINATION ON DISCHARGE: VITAL SIGNS: Please see below. GENERAL: Within normal limits within normal limits HEENT:. PERRLA. Extraocular muscles intact NECK: Supple, no JVD CARDIOVASCULAR EXAMINATION:. S1, S2, regular RESPIRATORY EXAMINATION:, Clear to A&P ABDOMINAL EXAMINATION:. Benign EXTREMITIES:. No clubbing, cyanosis or edema SKIN:. Normal NEUROLOGICAL EXAMINATION: Normal PSYCHIATRIC EXAMINATION: LABORATORY DATA: Please see below. IMAGING:. None PROGNOSIS:. Good ACTIVITY: As tolerated. DIET: As tolerated DISCHARGE PLAN: This bacteremia facility DISPOSITION: 62 D/T Rehab Facility. DISCHARGE INSTRUCTIONS: 1. [As above. ITEMS TO FOLLOWUP ON ON OUTPATIENT: 1. As above. DISCHARGE CONDITION: Stable. TIME SPENT ON DISCHARGE: Greater than 35 minutes. Vital Signs/I&Os Vital Signs Date Time Temp Pulse Resp B/P (MAP) Pulse Ox O2 Delivery O2 Flow Rate FiO2 12/28/18 15:00 4.0 12/28/18 14:00 98.0 86 22 103/62 (76) 98 12/25/18 11:54 Nasal Cannula Microbiology Microbiology 12/25/18 Blood Culture - Final, Complete NO GROWTH AFTER 5 DAYS 12/26/18 Gastrointestinal Tract Panel (PCR) - Final, Complete Discharge Medications Scheduled Acyclovir (Acyclovir) 400 Mg Tablet, 400 MG PO BID, (Reported) Allopurinol (Zyloprim) 300 Mg Tablet, 300 MG PO DAILY, (Reported) Apixaban (Eliquis) 5 Mg Tab, 5 MG PO BID, (Reported) Aspirin (Aspirin EC) 81 Mg Tab, 81 MG PO QPM, (Reported) Atorvastatin Calcium (Atorvastatin Calcium) 20 Mg Tab, 20 MG PO QHS, (Reported) Ceftriaxone Sodium (Ceftriaxone) 1 Gm Vial, 2 GM IV DAILY, (Reported) SPOUSE ADMINISTERS THROUGH PORT DAILY Cholecalciferol (Vitamin D3) (Vitamin D3) 2,000 Unit Capsule, 2,000 UNIT PO DAILY, (Reported) Dexamethasone (Dexamethasone) 4 Mg Tablet, 20 MG PO Q2WK, (Reported) TAKES ON THE WEDNESDAY BEFORE CHEMO ([id number]) Famotidine (Famotidine) 20 Mg Tab, 20 MG PO DAILY, (Reported) Metoprolol Succinate (Metoprolol Succinate) 25 Mg Tab.er.24h, 25 MG PO BID, (Reported) Montelukast Sodium (Montelukast Sodium) 10 Mg Tablet, 10 MG PO Q2WK, (Reported) TAKES PRIOR TO CHEMO EVERY 2 WEEKS Sertraline Hcl (Sertraline HCl) 50 Mg Tab, 100 MG PO DAILY, (Reported) Tamsulosin HCl (Flomax) 0.4 Mg Cap, 0.4 MG PO QHS, (Reported) Tiotropium [place] (Spiriva Respimat) 4 Gm Mist.inhal, 2 PUFFS INH DAILY, (Reported) Zinc Oxide (Boudreauxs) 16% Oint...g., 1 OZ TOP TID Scheduled PRN Acetaminophen (Acetaminophen) 325 Mg Tab, 650 MG PO Q4H PRN for PAIN, (Reported) Albuterol Sulfate (Ventolin Hfa) 18 Gm Hfa.aer.ad, 2 PUFF INH Q4H PRN for SHORTNESS OF BREATH, (Reported) Ipratropium/Albuterol Sulfate (Iprat-Albut 0.5-3(2.5) mg/3 ml) 3 Ml Ampul.neb, 3 ML NEB Q6H PRN for SOB/WHEEZING Allergies Coded Allergies: No Known Allergies (Unverified , 11/16/18) NURIA LOCKETT MD December 31, 2018 10:32
--- NOTE | 2018-12-31 10:52 | IPNPDOC ---
Subjective Date Seen The patient was seen on 12/27/18. Subjective Chief Complaint/HPI Patient comfortable, afebrile offers no new complaints General: Denies: ROS Unobtainable, Chills, Night Sweats, Fatigue, Malaise, Normal Appetite, Other Symptoms Constitutional: Denies: Chills, Fever, Malaise, Night Sweats, Weakness, Fatigue, Weight Loss, Lethargy, Other Eyes: Denies: Pain, Vision change, Conjunctivae inflammation, Eyelid inflammation, Redness, Other ENT: Denies: Head Aches, Ear Pain, Dysphagia, Sinus Congestion, Post Nasal Drip, Sore Throat, Epistaxis, Other Symptoms Skin: Denies: Rash, Lesions, Jaundice, Bruising, Itching, Dry, Breakdown, Nail Changes, Other Pulmonary: Denies: Dyspnea, Cough, Pleuritic Chest Pain, Other Symptoms Cardiovascular: Denies: Chest Pain, Palpitations, Orthopnea, Paroxysmal Noc. Dyspnea, Edema, Lt Headedness, Other Symptoms Gastrointestinal: Denies: Nausea, Vomiting, Abdominal Pain, Diarrhea, Constipation, Melena, Hematochezia, Other Symptoms Genitourinary: Denies: Dysuria, Frequency, Incontinence, Hematuria, Retention, Other Symptoms Hematologic: Denies: Bruising, Bleeding Excessively, Petecchia, Purpura, Enlarged Lymph Nodes, Other Hematologic Endocrine: Denies: Polydipsia, Polyphagia, Polyuria, Heat Intolerance, Cold Intolerance, Other Endocrine Sx Musculoskeletal: Denies: Neck Pain, Back Pain, Shoulder Pain, Arm Pain, Hand Pain, Leg Pain, Foot Pain, Joint Pain, Muscle Pain, Spasms, Other Symptoms Neurological: Denies: Weakness, Numbness, Incoordination, Change in speech, Confusion, Seizures, Other Symptoms Psych: Denies: Mood Normal, Anxiety, Depression, Memory Issues, Thoughts of Self Harm, Anger, Thoughts of Harming Other, Other Psych Objective Physical Examination General Exam: Positive: Alert, Cooperative, No Acute Distress ENT Exam: Positive: Atraumatic, Mucous membr. moist/pink Neck Exam: Negative: JVD Chest Exam: Positive: Clear to auscultation, Normal air movement Heart Exam: Positive: Rate Normal, Normal S1, Normal S2 Abdomen Exam: Positive: Soft; Negative: Tenderness Extremity Exam: Negative: Tenderness Psych Exam: Positive: Mental status NL, Memory Intact, Oriented x 3 A-FIB/CHADSVASC A-FIB History Current/History of A-Fib/PAF?: No Assessment /Plan Problems (1) Febrile neutropenia Status: Acute Response to Treatment: Stable Problem Text: Hx of Febrile neutropenia 2/2 Acute bacterial endocarditis with Streptococcus infantarius bacteremia s/p recent hospitalization from 12/04-12/21/18 at which time a ISMAEL done on 12/13 was found to be positive for vegetations after the patient was noted to bacteremic from Streptococcus infantarius Cont Ceftriaxone 2g q24h until 01/05 Patient was readmitted here due to concerns of an episode of fever at home, and generalized weakness The patient has remained afebrile here and hemodynamically stable He denies any acute complaints at this time. Physical therapy has been requested to optimize his function Patient possibly will be discharged to subacute facility in a.m. once cleared by the physical therapy (2) Endocarditis Status: Chronic Response to Treatment: Stable Problem Text: Recently diagnosed with the endocarditis secondary to strep with ISMAEL and has been started on ceftriaxone Patient was diagnosed for endocarditis on on the prior admission and he came with endocarditis during this admission. Further, as per infectious disease recommendations,Once the Rocephin course is complete Plan/VTE VTE Prophylaxis Ordered?: Yes (TEDS and SCD) VS, I&O, 24H, Fishbone Vital Signs/I&O Vital Signs Date Time Temp Pulse Resp B/P (MAP) Pulse Ox O2 Delivery O2 Flow Rate FiO2 12/28/18 15:00 4.0 12/28/18 14:00 98.0 86 22 103/62 (76) 98 12/25/18 11:54 Nasal Cannula Laboratory Data Microbiology Microbiology 12/25/18 Blood Culture - Final, Complete NO GROWTH AFTER 5 DAYS 12/26/18 Gastrointestinal Tract Panel (PCR) - Final, Complete NURIA LOCKETT MD December 31, 2018 10:52
== END 2018-12-28 16:13 | DRG 288 ==
LOC: M ED 02:05 → EDBD 02:05 → M ED INP 04:23 → M MSPAV 12:00
PROVIDERS: ADMIT Internal Medicine; ATTEND Internal Medicine
DX: I33.0 Acute and subacute infective endocarditis (principal); D61.810 Antineoplastic chemotherapy induced pancytopenia; C90.00 Multiple myeloma not having achieved remission; I48.92 Unspecified atrial flutter; K52.1 Toxic gastroenteritis and colitis; B37.0 Candidal stomatitis; N17.9 Acute kidney failure, unspecified; E86.0 Dehydration; J44.9 Chronic obstructive pulmonary disease, unspecified; M10.9 Gout, unspecified; D70.9 Neutropenia, unspecified; E87.6 Hypokalemia; R53.1 Weakness; N18.3 Chronic kidney disease, stage 3 (moderate); K12.32 Oral mucositis (ulcerative) due to other drugs; K21.9 Gastro-esophageal reflux disease without esophagitis; F32.9 Major depressive disorder, single episode, unspecified; I12.9 Hypertensive chronic kidney disease with stage 1 through stage 4 chronic kidney disease, or unspecified chronic kidney disease; T45.1X5A Adverse effect of antineoplastic and immunosuppressive drugs, initial encounter; Z86.718 Personal history of other venous thrombosis and embolism; Z79.01 Long term (current) use of anticoagulants; Z79.82 Long term (current) use of aspirin; Z79.899 Other long term (current) drug therapy; Z92.21 Personal history of antineoplastic chemotherapy; Z95.0 Presence of cardiac pacemaker; Z90.5 Acquired absence of kidney; Z92.3 Personal history of irradiation; Z87.891 Personal history of nicotine dependence; Z85.118 Personal history of other malignant neoplasm of bronchus and lung; Z93.1 Gastrostomy status

== ENCOUNTER 2018-12-28 12:10 | Inpatient (IN) | payer MEDICARE, OTHER ==
[~2018-12-28] VITALS: Ht 182.9 cm; Wt 114.0 kg
[~2018-12-28 12:10] MED LIST changes: +CEFT1INJ5 IV
[2018-12-28] MEDS ORDERED: ACETAMINOPHEN TAB 650MG DOSE (2X325MG) PO PRN (14:45)
[2018-12-28] MEDS ORDERED: IPRATROPIUM 0.5MG/ALBUTEROL 2.5MG INH SOL UD 3ML (DUONEB)(J7620) NEB PRN (14:45)
[2018-12-28] MEDS ORDERED: MOM 30ML SUSPENSION UDC PO PRN (14:45)
[2018-12-28] MEDS ORDERED: ONDANSETRON 4 MG TAB (S0181) PO PRN (14:45)
[2018-12-28 16:42] VITALS: BP 126/69
[2018-12-28] MEDS ORDERED: NS 1,000 ML IV SCH (18:01)
[2018-12-28] MEDS ORDERED: dexameTHASONE 20 MG/5 ML VIAL (J1100) IV SCH (18:15)
[2018-12-28] MEDS ORDERED: NICOTINE 7 MG/24 HR TRANSDERMAL TD PRN (18:15)
[2018-12-28] MEDS: cefTRIAXone SOD 2 GM in D5W MINI-BAG PLUS 50 ML IV SCH (18:40)
[2018-12-28] MEDS: LACTOBACILLUS ACIDOPHILUS CAP (BACID) PO SCH ×2 (18:41→20:34)
[2018-12-28] MEDS: FUROSEMIDE 40 MG TAB PO SCH (18:41)
--- NOTE | 2018-12-28 18:51 | CR.PDOC ---
General Date of Consultation: December 28, 2018 Consultation REASON FOR CONSULTATION/CHIEF COMPLAINT: [Medical management]. HISTORY OF PRESENT ILLNESS: [73-year-old gentleman with PMH of a. flutter and t hird degree AV block with pacemaker, multiple myeloma, DVT, COPD, multiple myeloma, and CKD with recent diagnosis of acute bacterial endocarditis with Streptococcus infantarius bacteremia presents to [facility] ER due to fever of 102F at home and admitted and treated for Febrile neutropenia 2/2 Acute bacterial endocarditis with Streptococcus infantarius bacteremia. Patient was treated and improved to point the patient was transferred to ARU 12/28/18. Hospitalist was consulted for medical management. Patient denies of any discomfort at this time. Patient has chronic diarrhea intermittently which is unchanged. Patient does not have any fever, able to tolerate by mouth intake without difficulty. Patient's name is to regain his strength back. ]. ALLERGIES: Please see below. HOME MEDICATIONS: Please see below. PAST MEDICAL HISTORY: 1. Transitional cell carcinoma, status post right nephroureterectomy in 2001 2. diffuse large B-cell lymphoma in 2015 s/p chemo and radiation 3. 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 CKD stage 3. One kidney on left side 5. Hypertension 6. Gout 7. PMH of DVT 8. Third-degree AV block, status post pacemaker insertion 11/26/2017 9. A. flutter PAST SURGICAL HISTORY: 1. Laminectomy done by Dr. Javier 2012. 2. TURP 3. Permanent pacemaker done by Dr. Lobato 11/26/2017 4. Right orchiectomy January 2016 5. Right ureteral nephrectomy 2001 6. Multiple bone marrow biopsies FAMILY HISTORY: Noncontributory SOCIAL HISTORY: Former smoker quit 16 years ago, denies alcohol or drug abuse. Lives at home wi th his who is a retired nurse REVIEW OF SYSTEMS: 10 point review systems negative than those described in HPI PHYSICAL EXAMINATION: VITAL SIGNS: Please see below GENERAL APPEARANCE: Resting comfortably HEENT: Normocephalic, PERRLA, Mucous moist, CARDIOVASCULAR: S1,S2, pulse present, regularly, regular, left-sided port for IV access LUNGS: Equal air entry b/l, no wheezes or crackle ABDOMEN: Soft, BS present, no tenderness, no guarding EXTREMITIES: B/L no edema, capillary refill present SKIN: Warm, No fever NEUROLOGICAL: Cranial nerves grossly intact PSYCHIATRIC: Normal mood and affect for current situation LABORATORY DATA: Please see below. ASSESSMENT/PLAN: 73-year-old gentleman with PMH of a. flutter and third degree AV block with pacemaker, multiple myeloma, DVT, COPD, multiple myeloma, and CKD with recent diagnosis of acute bacterial endocarditis with Streptococcus infantarius bacteremia presents to [facility] ER due to fever of 102F at home and admitted and treated for Febrile neutropenia 2/2 Acute bacterial endocarditis with Streptococcus infantarius bacteremia. Patient was treated and improved to point the patient was transferred to ARU 12/28/18. Hospitalist was consulted for medical management. Debility -As per rehabilitation Hx of Febrile neutropenia 2/2 Acute bacterial endocarditis with Streptococcus infantarius bacteremia -s/p recent hospitalization from 12/04-12/21/18 at which time a ISMAEL done on 12/13 was found to be positive for vegetations after the patient was noted to bacteremic from Streptococcus infantarius -Cont Ceftriaxone 2g q24h until 01/05 Pancytopenia 2/2 Hx of Chemotherapy -Follows with Dr. Rice of Oncology -consider Neupogen if his ANC drops <1500 -No indication for packed red blood cell or platelet transfusion at this time CKD Stage III -Serum Cr at baseline -on lasix A flutter / Hx of Pacemaker -Continue with metoprolol, Eliquis, asa Multiple Myeloma -Patient's treatment regimen includes Revlimid and Daratumumab, with last dose 3 weeks ago -c/w Acyclovir for prophylaxis -Follow-up with Dr. Rice as outpatient Hx of DVT -On Eliquis COPD -Continue meds as ordered Gout -Allopurinol DLP -Atorvastatin Depression -Sertraline BPH -Tamsulosin GERD -Protonix Vital Signs/I&O Vital Signs Date Time Temp Pulse Resp B/P (MAP) Pulse Ox O2 Delivery O2 Flow Rate FiO2 12/28/18 16:42 97.5 90 19 126/69 (88) 90 4.0 Allergies Coded Allergies: No Known Allergies (Unverified , 11/16/18) Home Medications Scheduled Acyclovir (Acyclovir) 400 Mg Tablet, 400 MG PO BID, (Reported) Allopurinol (Zyloprim) 300 Mg Tablet, 300 MG PO DAILY, (Reported) Apixaban (Eliquis) 5 Mg Tab, 5 MG PO BID, (Reported) Aspirin (Aspirin EC) 81 Mg Tab, 81 MG PO QPM, (Reported) Atorvastatin Calcium (Atorvastatin Calcium) 20 Mg Tab, 20 MG PO QHS, (Reported) Ceftriaxone Sodium (Ceftriaxone) 1 Gm Vial, 2 GM IV DAILY, (Reported) SPOUSE ADMINISTERS THROUGH PORT DAILY Cholecalciferol (Vitamin D3) (Vitamin D3) 2,000 Unit Capsule, 2,000 UNIT PO DAILY, (Reported) Dexamethasone (Dexamethasone) 4 Mg Tablet, 20 MG PO Q2WK, (Reported) TAKES ON THE WEDNESDAY BEFORE CHEMO ([id number]) Famotidine (Famotidine) 20 Mg Tab, 20 MG PO DAILY, (Reported) Furosemide (Furosemide) 40 Mg Tablet, 40 MG PO BID, (Reported) Metoprolol Succinate (Metoprolol Succinate) 25 Mg Tab.er.24h, 25 MG PO BID, (Reported) Montelukast Sodium (Montelukast Sodium) 10 Mg Tablet, 10 MG PO Q2WK, (Reported) TAKES PRIOR TO CHEMO EVERY 2 WEEKS Sertraline Hcl (Sertraline HCl) 50 Mg Tab, 100 MG PO DAILY, (Reported) Tamsulosin HCl (Flomax) 0.4 Mg Cap, 0.4 MG PO QHS, (Reported) Tiotropium [place] (Spiriva Respimat) 4 Gm Mist.inhal, 2 PUFFS INH DAILY, (Reported) Scheduled PRN Acetaminophen (Acetaminophen) 325 Mg Tab, 650 MG PO Q4H PRN for PAIN, (Reported) Albuterol Sulfate (Ventolin Hfa) 18 Gm Hfa.aer.ad, 2 PUFF INH Q4H PRN for SHORTNESS OF BREATH, (Reported) ELVIRA MURILLO MD December 28, 2018 18:51
[2018-12-28] MEDS: SODIUM CHLORIDE 0.9% INJ 10 ML SYR IV PRN (19:32)
[2018-12-28 20:00] VITALS: BP 108/61
[2018-12-28] MEDS: ACYCLOVIR 200 MG CAPSULE PO SCH (20:33)
[2018-12-28] MEDS: TAMSULOSIN 0.4 MG CAP PO SCH (20:33)
[2018-12-28] MEDS: NYSTATIN 100,000 UNITS/GM TOPICAL PWD 15 GM TOP SCH (20:33)
[2018-12-28] MEDS: APIXABAN 5 MG TAB (ELIQUIS) PO SCH (20:34)
[2018-12-28] MEDS: ASPIRIN 81 MG CHEW TABLET PO SCH (20:34)
[2018-12-28] MEDS: ATORVASTATIN 20 MG TAB PO SCH (20:34)
[2018-12-28] MEDS: METOPROLOL SUCC *XL* 25MG TAB (TopROL *XL*) PO SCH (20:35)
[2018-12-28] MEDS ORDERED: SENNA 8.6 MG TAB (SENOKOT) PO SCH (21:00)
[2018-12-28] MEDS ORDERED: DOCUSATE SODIUM 100 MG CAP PO SCH (21:00)
[2018-12-29 05:30] VITALS: BP 132/55
[2018-12-29 06:50] LABS: EOS % 0.6 % (0.0-3.0); HEMATOCRIT 24.9 % (42.0-52.0); LYMPH % 7.9 % (24.0-44.0); MEAN CORPUSCULAR HGB CONC 32.1 g/dl (32.0-36.5); MEAN CORPUSCULAR VOLUME 87.1 fl (80.0-96.0); MONO # 0.1 10^3/uL (0.0-0.8); MONO % 6.2 % (0.0-5.0); NEUTROPHILS # 1.5 10^3/uL (1.8-7.7); NEUTROPHILS % 82.5 % (36.0-66.0); RED BLOOD COUNT 2.86 10^6/uL (4.30-6.10)
[2018-12-29 07:10] LABS: LYMPH # 0.1 10^3/uL (1.5-4.5); PLATELET COUNT, AUTOMATED 60 10^3/uL (150-450); WHITE BLOOD COUNT 1.8 10^3/uL (4.0-10.0)
[2018-12-29 07:17] LABS: ALBUMIN 1.6 GM/DL (3.2-5.2); BILIRUBIN,TOTAL 0.5 MG/DL (0.2-1.0); CALCIUM LEVEL 7.9 MG/DL (8.8-10.2); CREATININE FOR GFR 1.78 MG/DL (0.70-1.30); GLOMERULAR FILTRATION RATE 40.2 (>42); POTASSIUM SERUM 2.7 MEQ/L (3.5-5.1); TOTAL PROTEIN 5.4 GM/DL (6.4-8.2)
[2018-12-29 07:51] LABS: MAGNESIUM LEVEL 1.5 MG/DL (1.8-2.4)
[2018-12-29] MEDS: VITAMIN D 1,000 INTERNATIONAL UNITS TABLET PO SCH (07:53)
[2018-12-29] MEDS: LACTOBACILLUS ACIDOPHILUS CAP (BACID) PO SCH ×3 (07:53→20:54)
[2018-12-29] MEDS: METOPROLOL SUCC *XL* 25MG TAB (TopROL *XL*) PO SCH ×2 (07:53→20:54)
[2018-12-29] MEDS: FUROSEMIDE 40 MG TAB PO SCH ×2 (07:54→17:10)
[2018-12-29] MEDS: SERTRALINE 100 MG TAB PO SCH (07:54)
[2018-12-29] MEDS: ALLOPURINOL 300 MG TAB PO SCH (07:54)
[2018-12-29] MEDS: PANTOPRAZOLE 40MG TAB (PROTONIX) PO SCH (07:55)
[2018-12-29] MEDS: ACYCLOVIR 200 MG CAPSULE PO SCH ×2 (07:55→20:54)
[2018-12-29] MEDS: APIXABAN 5 MG TAB (ELIQUIS) PO SCH ×2 (07:55→20:54)
[2018-12-29] MEDS: TIOTROPIUM INHALER/CAPSULE (SPIRIVA) INH SCH (07:58)
[2018-12-29] MEDS ORDERED: POTASSIUM CHLORIDE 10 MEQ SR TABLET PO ONE ×2 (09:00→18:45)
[2018-12-29] MEDS ORDERED: MAGNESIUM OXIDE 400 MG TAB (MAG-OX) PO ONE (09:00)
[2018-12-29] MEDS: SODIUM CHLORIDE 0.9% INJ 10 ML SYR IV SCH (09:00)
[2018-12-29] MEDS: BOUDREAUX'S BUTT PASTE 4OZ TOP SCH ×3 (09:00→20:55)
[2018-12-29] MEDS: NYSTATIN 100,000 UNITS/GM TOPICAL PWD 15 GM TOP SCH ×2 (09:19→20:56)
[2018-12-29] MEDS: DILUENT IV SCH ×4 (09:20→12:43)
[2018-12-29] MEDS: SWI IV SCH ×4 (09:20→12:43)
[2018-12-29] MEDS: KCL IV SCH ×4 (09:20→12:43)
--- NOTE | 2018-12-29 10:05 | HPEPDOC ---
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 On admission chest XR showed, chronic changes with a new infiltrate, his stool was negative for C diff, he was given gentle hydration and given respiratory support with nasal canula. Repeat blood cultures were negative. He continued to have leukopenia, anemia, hypokalemia, and generalized weakness. His fevers improved and he was evaluated by therapy who found him to have significant impairments in gait and ADLs. He was deemed medically appropriate for discharge to ARU on 12/28/18. Upon arrival his explained he had developed a bedsore on his last admission that had been difficult to keep clean while at home, and that he was independent without an AD until about one month ago with the onset of the endocarditis. REVIEW OF SYSTEMS: The following is a completed review of systems and has been reviewed. Review of systems otherwise unremarkable. PAIN: Patient self reports no pain EYES: Negative EARS, NOSE, & THROAT: Denies dysphagia or throat pain CARDIOVASCULAR: denies chest pain or palpitations PULMONARY: +shortness of breath at rest and on exertion GASTROINTESTINAL:+diarrhea GENITOURINARY: Negative for dysuria MUSCULOSKELETAL: generalized weakness NEUROLOGICAL: no tremor or seizure activity HEMATOLOGICAL: +leukopenia and anemia SKIN +sacral ulcer PSYCHIATRIC: Unremarkable All other review of systems found to be negative. PAST MEDICAL HISTORY: as per HPI PAST SURGICAL HISTORY: laminectomy 2013, TURP, PM 11/26/17, right oriectomy 2016, right uretral nephrectomy 2001, BM biopsies ALLERGIES: Please see below. MEDICATIONS: Please see below. SOCIAL HISTORY: lives with , denies smoking, ETOH, or illicit drugs DIET: Renal PHYSICAL EXAMINATION: VITAL SIGNS: Please see below. GENERAL: Pleasant and cooperative. No acute distress. HEENT: PERRL. Extraocular movements intact. Clear conjunctiva CARDIOVASCULAR: Regular rate and rhythm. No murmurs, rubs, or gallops LUNGS: Clear to auscultation bilaterally. No wheezes. No rhonchi ABDOMEN: Soft, nontender, mildly- distended. Positive bowel sounds. Normal active bowel sounds NEUROLOGICAL: Alert and oriented times three. Cranial nerves II through XII grossly intact. Sensation grossly intact EXTREMITIES:5-\5 strength bilateral upper extremities.4-/5 hip flexors, knee extensors, ankle DF, 0/5 EHL bilat LE mild edema in all 4 extremities, scattered ecchymosis SKIN: stage 2 sacral ulcer IMAGING: Imaging documentation personally reviewed by record FUNCTIONAL STATUS: Premorbid: Independent with all activities of daily life as well as mobility up until 1 month ago when began to use wheelchair and walker On Admission: Min-Mod assist for functional transfers, total assist for dressing, min assist toileting GOALS: Contact-guard for ambulation with RW household distances, Mod-I for grooming and upper body dressing, Contact-guard for lower body dressing, Mod-I for bed mobility, medical optimization, family training, assess for DME needs. ASSESSMENT:73-year-old M with past medical history of multiple myeloma, endocarditis who presents status post dehydration, fever, weakness due to endocarditis. PLAN: 1. 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 Neuro: avoid deliriogenic meds, stable 3. cardiac: recent dx of Strep Infantarius Endocarditis, per ID recs, last dose of Ceftriaxone 01/03/19- will consult, c/u Eliquis -pmh PM with 3rd degree AVB with CHF- c./u beta-beatrice and diuretic- medicine consulted to follow 4. Resp: pmh COPD, c/u breathing treatments and supplemental 02, monitor for worsening infection 5. Heme/onc: pmh multiple myeloma, chemo on hold- patient leuokopenic, anemic, and low platelets- c/u to monitor- per medicine recs, Neupogen if wbc <1.5 6. Renal: pmh CKD, avoid nephrotoxic agents 7. Hypokalemia: c/u to monitor and replete 8. Skin: Balmex to sacrum, turn q2h 9. Psch: depression c/u ZOloft 10. GI ppx: protonix 11. DVT ppx: on eliquis 12. Dispo: TBD POST ADMISSION PHYSICIAN EVALUATION: Medical and functional status: Description of medical status, medical assessment: As above. Rehabilitation diagnosis and current and prior cold morbid medical conditions as above. Risk of complications and plans to mitigate them as above. Description of functional status current status is as above. Prior status as above. Status compared to preadmission: There are no clinically significant differences between the patient's current status and the information described on the preadmission screening document. Treatment plan anticipated: Treatment plan is as described above. Required disciplines including physical therapy, occupational therapy, others as noted above Intensity of services: 3 hours a day, 6 days a week. Special considerations: There are no specific special or safety considerations that would likely preclude immediate implementation of an intensive rehabilitation program or subsequently influence the plan of care ATTESTATION: Considering all the information above, it is my best judgment that this patient requires intensive rehabilitation therapy as described above and an inpatient hospital environment due to the complexity of nursing, medical, and rehabilitation needs required by the patient. Furthermore, this patient can reasonably be expected to participate in an benefit from an inpatient rehabilitation stay with an interdisciplinary team approach to the delivery of rehabilitation care under the direction and supervision of rehabilitation physician. PROGNOSIS: good ESTIMATED LENGTH OF STAY:18-21days. PROJECTED DISCHARGE DESTINATION: Home with family support and any durable medical equipment required to increase functional safety and mobility TIME SPENT COUNSELING AND COORDINATING INITIAL CARE: Greater than 70 minutes. Vital Signs Vital Sign - Last 24 Hours 12/28/18 12/28/18 12/28/18 12/28/18 16:42 20:00 20:35 21:00 Temp 97.5 99.5 Pulse 90 90 90 Resp 19 19 B/P (MAP) 126/69 (88) 108/61 (77) 108/61 Pulse Ox 90 88 O2 Flow Rate 4.0 4.0 4.0 12/29/18 12/29/18 05:30 07:53 Temp 98.5 Pulse 86 86 Resp 19 B/P (MAP) 132/55 (80) 132/55 Pulse Ox 89 O2 Flow Rate 4.0 Laboratory Data CBC/BMP Laboratory Tests 12/29/18 06:11 Red Blood Count 2.86 L, Mean Corpuscular Volume 87.1, Mean Corpuscular Hemoglobin 28.0, Mean Corpuscular Hemoglobin Concent 32.1, Red Cell Distribution Width 24.1 H, Neutrophils (%) (Auto) 82.5 H, Lymphocytes (%) (Auto) 7.9 L, Monocytes (%) (Auto) 6.2 H, Eosinophils (%) (Auto) 0.6, Basophils (%) (Auto) 0.0, Neutrophils # (Auto) 1.5 L, Lymphocytes # (Auto) 0.1 L, Monocytes # (Auto) 0.1, Eosinophils # (Auto) 0.0, Basophils # (Auto) 0.0, Calcium Level 7.9 L, Aspartate Amino Transf (AST/SGOT) 28, Alanine Aminotransferase (ALT/SGPT) 27, Alkaline Phosphatase 72, Total Bilirubin 0.5, Total Protein 5.4 L, Albumin 1.6 L Labs 24H Laboratory Tests 2 12/29/18 06:11: Immature Granulocyte % (Auto) 2.8, White Blood Count 1.8L, Red Blood Count 2.86L, Hemoglobin 8.0L, Hematocrit 24.9L, Mean Corpuscular Volume 87.1, Mean Corpuscular Hemoglobin 28.0, Mean Corpuscular Hemoglobin Concent 32.1, Red Cell Distribution Width 24.1H, Platelet Count 60L, Neutrophils (%) (Auto) 82.5H, L ymphocytes (%) (Auto) 7.9L, Monocytes (%) (Auto) 6.2H, Eosinophils (%) (Auto) 0.6, Basophils (%) (Auto) 0.0, Neutrophils # (Auto) 1.5L, Lymphocytes # (Auto) 0.1L, Monocytes # (Auto) 0.1, Eosinophils # (Auto) 0.0, Basophils # (Auto) 0.0, Nucleated Red Blood Cells % (auto) 1.1H, Immature Platelet Fraction 4.0, Anion Gap 12, Glomerular Filtration Rate 40.2L, Blood Urea Nitrogen 33H, Creatinine 1.78H, Sodium Level 136, Potassium Level 2.7*L, Chloride Level 104, Carbon Dioxide Level 20L, Calcium Level 7.9L, Aspartate Amino Transf (AST/SGOT) 28, Alanine Aminotransferase (ALT/SGPT) 27, Alkaline Phosphatase 72, Total Bilirubin 0.5, Total Protein 5.4L, Albumin 1.6L, Magnesium Level 1.5L, Albumin/Globulin Ratio 0.42L Home Medications Scheduled Acyclovir (Acyclovir) 400 Mg Tablet, 400 MG PO BID, (Reported) Allopurinol (Zyloprim) 300 Mg Tablet, 300 MG PO DAILY, (Reported) Apixaban (Eliquis) 5 Mg Tab, 5 MG PO BID, (Reported) Aspirin (Aspirin EC) 81 Mg Tab, 81 MG PO QPM, (Reported) Atorvastatin Calcium (Atorvastatin Calcium) 20 Mg Tab, 20 MG PO QHS, (Reported) Ceftriaxone Sodium (Ceftriaxone) 1 Gm Vial, 2 GM IV DAILY, (Reported) SPOUSE ADMINISTERS THROUGH PORT DAILY Cholecalciferol (Vitamin D3) (Vitamin D3) 2,000 Unit Capsule, 2,000 UNIT PO DAILY, (Reported) Dexamethasone (Dexamethasone) 4 Mg Tablet, 20 MG PO Q2WK, (Reported) TAKES ON THE WEDNESDAY BEFORE CHEMO (T1INBTN) Famotidine (Famotidine) 20 Mg Tab, 20 MG PO DAILY, (Reported) Furosemide (Furosemide) 40 Mg Tablet, 40 MG PO BID, (Reported) Metoprolol Succinate (Metoprolol Succinate) 25 Mg Tab.er.24h, 25 MG PO BID, (Reported) Montelukast Sodium (Montelukast Sodium) 10 Mg Tablet, 10 MG PO Q2WK, (Reported) TAKES PRIOR TO CHEMO EVERY 2 WEEKS Sertraline Hcl (Sertraline HCl) 50 Mg Tab, 100 MG PO DAILY, (Reported) Tamsulosin HCl (Flomax) 0.4 Mg Cap, 0.4 MG PO QHS, (Reported) Tiotropium Emigrant (Spiriva Respimat) 4 Gm Mist.inhal, 2 PUFFS INH DAILY, (Reported) Scheduled PRN Acetaminophen (Acetaminophen) 325 Mg Tab, 650 MG PO Q4H PRN for PAIN, (Reported) Albuterol Sulfate (Ventolin Hfa) 18 Gm Hfa.aer.ad, 2 PUFF INH Q4H PRN for SHORTNESS OF BREATH, (Reported) Allergies Coded Allergies: No Known Allergies (Unverified , 11/16/18) A-FIB/CHADSVASC A-FIB History Current/History of A-Fib/PAF?: No LAXMI LYNN MD December 29, 2018 10:05
--- NOTE | 2018-12-29 10:05 | IPNPDOC ---
PM&R Progress Note Software Support Engineer Progress Note DATE OF ADMISSION: December 28, 2018 at 16:25 INPATIENT REHABILITATION ADMISSION DAY: # SUBJECTIVE: Patient is a -year-old with . ALLERGIES: See Below MEDICATIONS: Reviewed, see below. OBJECTIVE: VITAL SIGNS: Please see below. PHYSICAL EXAMINATION: GENERAL: [Cachectic, well developed, sitting up in bed, no acute distress]. HEENT: [Normocephalic, atraumatic]. [No facial droop]. [Poor dentition, missing teeth. PERRL, EOMI]. CARDIOVASCULAR: [S1, S2, irregular rate]. [No lower limb edema or calf tenderness]. LUNGS: [Decreased breath sounds, coarse throughout]. ABDOMEN: [Soft, nontender, nondistended. Normoactive bowel sounds throughout]. MUSCULOSKELETAL: MMT: /5 strength proximally bilateral shoulder abduction, f orward flexion and bilateral hip flexion. /5 strength bilateral elbow flexion, knee flexion, /5 bilateral elbow extension and knee extension. 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 NEUROLOGICAL: [Alert and oriented times three]. [Answers all question appropriately]. SKIN: . LABORATORY DATA: Reviewed. Please see below. MICROBIOLOGY: Please see below. IMAGING: ASSESSMENT AND PLAN: 1. . 2. . 3. . TIME SPENT: Chart Review, examination and documentation minutes. Allergies Coded Allergies: No Known Allergies (Unverified , 11/16/18) Vital Signs Vital Signs Date Time Temp Pulse Resp B/P (MAP) Pulse Ox O2 Delivery O2 Flow Rate FiO2 12/29/18 07:53 86 132/55 12/29/18 05:30 98.5 19 89 4.0 Laboratory Data CBC/BMP Laboratory Tests 12/29/18 06:11 Red Blood Count 2.86 L, Mean Corpuscular Volume 87.1, Mean Corpuscular Hemoglobin 28.0, Mean Corpuscular Hemoglobin Concent 32.1, Red Cell Distribution Width 24.1 H, Neutrophils (%) (Auto) 82.5 H, Lymphocytes (%) (Auto) 7.9 L, Monocytes (%) (Auto) 6.2 H, Eosinophils (%) (Auto) 0.6, Basophils (%) (Auto) 0.0, Neutrophils # (Auto) 1.5 L, Lymphocytes # (Auto) 0.1 L, Monocytes # (Auto) 0.1, Eosinophils # (Auto) 0.0, Basophils # (Auto) 0.0, Calcium Level 7.9 L, Aspartate Amino Transf (AST/SGOT) 28, Alanine Aminotransferase (ALT/SGPT) 27, Alkaline Phosphatase 72, Total Bilirubin 0.5, Total Protein 5.4 L, Albumin 1.6 L Labs 24H Laboratory Tests 2 12/29/18 06:11: Immature Granulocyte % (Auto) 2.8, White Blood Count 1.8L, Red Blood Count 2.86L, Hemoglobin 8.0L, Hematocrit 24.9L, Mean Corpuscular Volume 87.1, Mean Corpuscular Hemoglobin 28.0, Mean Corpuscular Hemoglobin Concent 32.1, Red Cell Distribution Width 24.1H, Platelet Count 60L, Neutrophils (%) (Auto) 82.5H, Lym phocytes (%) (Auto) 7.9L, Monocytes (%) (Auto) 6.2H, Eosinophils (%) (Auto) 0.6, Basophils (%) (Auto) 0.0, Neutrophils # (Auto) 1.5L, Lymphocytes # (Auto) 0.1L, Monocytes # (Auto) 0.1, Eosinophils # (Auto) 0.0, Basophils # (Auto) 0.0, Nucleated Red Blood Cells % (auto) 1.1H, Immature Platelet Fraction 4.0, Anion Gap 12, Glomerular Filtration Rate 40.2L, Blood Urea Nitrogen 33H, Creatinine 1.78H, Sodium Level 136, Potassium Level 2.7*L, Chloride Level 104, Carbon Dioxide Level 20L, Calcium Level 7.9L, Aspartate Amino Transf (AST/SGOT) 28, Alanine Aminotransferase (ALT/SGPT) 27, Alkaline Phosphatase 72, Total Bilirubin 0.5, Total Protein 5.4L, Albumin 1.6L, Magnesium Level 1.5L, Albumin/Globulin Ratio 0.42L Current Medications Current Medications Current Medications Acetaminophen (Tylenol Tab) 650 mg Q4HP PRN PO MILD PAIN (PS 1-4); Start 12/28/18 at 14:45 Acyclovir (Zovirax) 400 mg BID PO Last administered on 12/29/18at 07:55; Start 12/28/18 at 21:00 Albuterol/ Ipratropium (Duoneb (Ipr 0.5mg/Alb 2.5mg)) 3 ml Q4HP PRN NEB SOB/WHEEZING; Start 12/28/18 at 14:45 Allopurinol (Zyloprim) 300 mg DAILY PO Last administered on 12/29/18 07:54; Start 12/29/18 at 09:00 Apixaban (Eliquis) 5 mg BID PO Last administered on 12/29/18 07:55; Start 12/28/18 at 21:00 Aspirin (Aspirin Chewable) 81 mg QHS PO Last administered on 12/28/18 20:34; Start 12/28/18 at 21:00 Atorvastatin Calcium (Lipitor) 20 mg QHS PO Last administered on 12/28/18 20:34; Start 12/28/18 at 21:00 Ceftriaxone Sodium 2 gm/ Dextrose 50 ml @ 100 mls/hr Q24H IV Last administered on 12/28/18at 18:40; Start 12/28/18 at 18:00 Cefuroxime Sodium 750 mg/Dextrose 50 ml @ 100 mls/hr Q8H IV ; Start 12/28/18 at 18:15; Stop 12/28/18 at 18:15; Status DC Dexamethasone (Decadron) 8 mg Q8H IV ; Start 12/28/18 at 18:15; Stop 12/28/18 at 18:15; Status DC Docusate Sodium (Colace) 100 mg BID PO ; Start 12/28/18 at 21:00; Stop 12/28/18 at 21:00; Status DC Furosemide (Lasix) 40 mg BID@09,17 PO Last administered on 12/29/18at 07:54; Start 12/28/18 at 17:00 Heparin Sodium (Heparin (Flush)) 500 units ASDIRECTED PRN IV SEE LABEL COMMENTS Last administered on 12/28/18at 19:32; Start 12/28/18 at 19:30 Heparin Sodium (Heparin (Flush)) 500 units DAILY IV ; Start 12/29/18 at 09:00 Lactobacillus Acidophilus (Bacid) 1 ea TID PO Last administered on 12/29/18at 07:53; Start 12/28/18 at 16:00 Magnesium Hydroxide (Milk Of Magnesia) 30 ml DAILYPRN PRN PO CONSTIPATION; Start 12/28/18 at 14:45 Metoprolol Succinate (TopROL XL) 25 mg BID PO Last administered on 12/29/18 07:53; Start 12/28/18 at 21:00 Nicotine (Nicoderm Cq 7 Mg) 1 patch DAILYPRN PRN TD SEE LABEL COMMENTS; Start 12/28/18 at 18:15; Stop 12/28/18 at 18:50; Status DC Nystatin (Mycostatin Powder, Nystop) AT ABDOMINAL FOLDS BID TOP Last admin istered on 12/29/18at 09:19; Start 12/28/18 at 21:00 Ondansetron HCl (Zofran) 4 mg Q6HP PRN PO NAUSEA; Start 12/28/18 at 14:45 Pantoprazole Sodium (Protonix) 40 mg DAILY PO Last administered on 12/29/18 07:55; Start 12/29/18 at 09:00 Potassium Chloride 40 meq/ IV Miscellaneous Supplies 400 ml @ 100 mls/hr Q1H IV Last administered on 12/29/18at 09:20; Start 12/29/18 at 09:00; Stop 12/29/18 at 12:59 Senna (Senokot) 1 tab QHS PO ; Start 12/28/18 at 21:00; Stop 12/28/18 at 21:00; Status DC Sertraline HCl (Zoloft) 100 mg DAILY PO Last administered on 12/29/18 07:54; Start 12/29/18 at 09:00 Sodium Chloride 1,000 ml @ 50 mls/hr Q20H IV ; Start 12/28/18 at 18:01; Stop 12/28/18 at 18:08; Status DC Sodium Chloride (Saline Lock Flush) 10 ml ASDIRECTED PRN IV SEE LABEL COMMENTS Last administered on 12/28/18at 19:32; Start 12/28/18 at 19:30 Sodium Chloride (Saline Lock Flush) 10 ml DAILY IV ; Start 12/29/18 at 09:00 Tamsulosin HCl (Flomax) 0.4 mg QHS PO Last administered on 12/28/18at 20:33; Start 12/28/18 at 21:00 Tiotropium Renovo (Spiriva Handihaler) 1 inhalation DAILY@08 INH Last administered on 12/29/18at 07:58; Start 12/29/18 at 08:00 Vitamin D (Vitamin D) 2,000 units DAILY PO Last administered on 12/29/18at 07:53; Start 12/29/18 at 09:00 LAXMI LYNN MD December 29, 2018 10:05
--- NOTE | 2018-12-29 10:09 | NUR ---
Recommend continue regular solids, thin liquids. No s/sx dysphagia. Addendum: 12/29/18 at 1010 by AYDEN LIU [facility] Amended: Links added.
--- NOTE | 2018-12-29 10:26 | NUR ---
Pt demonstrating mild cognitive impairment in memory and reasoning skills, poor awareness of personal hygiene. Per , these changes began 2-3 months ago. Recommend cognitive tx, compensatory strategy training. Addendum: 12/29/18 at [address] [facility] Amended: Links added.
[2018-12-29 14:00] VITALS: BP 112/63
--- NOTE | 2018-12-29 15:20 | IPNPDOC ---
Date Seen The patient was seen on 12/29/18. Progress Note SUBJECTIVE: Patient denied of any pain that are uncontrolled. Patient resting comfortably in rehabilitation. Patient's potassium was low today and therefore will replace. We'll continue to monitor and treat. Patient to continue with the debilitation therapy. OBJECTIVE PHYSICAL EXAMINATION: VITAL SIGNS: Please see below GENERAL APPEARANCE: Resting comfortably HEENT: Normocephalic, PERRLA, Mucous moist, CARDIOVASCULAR: S1,S2, pulse present, regularly, regular, left-sided port for IV access LUNGS: Equal air entry b/l, no wheezes or crackle ABDOMEN: Soft, BS present, no tenderness, no guarding EXTREMITIES: B/L no edema, capillary refill present SKIN: Warm, No fever NEUROLOGICAL: Cranial nerves grossly intact PSYCHIATRIC: Normal mood and affect for current situation LABORATORY DATA, IMAGING STUDIES, MICROBIOLOGY: Please see below. ]ASSESSMENT/PLAN: 73-year-old gentleman with PMH of a. flutter and third degree AV block with pacemaker, multiple myeloma, DVT, COPD, multiple myeloma, and CKD with recent diagnosis of acute bacterial endocarditis with Streptococcus infantarius bacter emia presents to [facility] ER due to fever of 102F at home, weakness, and dehydration and admitted and treated for Febrile neutropenia 2/2 Acute bacterial endocarditis with Streptococcus infantarius bacteremia. Patient was treated and improved to point the patient was transferred to ARU 12/28/18. Hospitalist was consulted for medical management. Debility -As per rehabilitation Hx of Febrile neutropenia 2/2 Acute bacterial endocarditis with Streptococcus infantarius bacteremia -s/p recent hospitalization from 12/04-12/21/18 at which time a ISMAEL done on 12/13 was found to be positive for vegetations after the patient was noted to bacteremic from Streptococcus infantarius -Cont Ceftriaxone 2g q24h until 01/05 Pancytopenia 2/2 Hx of Chemotherapy -Follows with Dr. Rice of Oncology -consider Neupogen if his ANC drops <1500 -No indication for packed red blood cell or platelet transfusion at this time CKD Stage III -Serum Cr at baseline -on lasix A flutter / Hx of Pacemaker -Continue with metoprolol, Eliquis, asa Multiple Myeloma -Patient's treatment regimen includes Revlimid and Daratumumab, with last dose 3 weeks ago -c/w Acyclovir for prophylaxis -Follow-up with Dr. Sinor as outpatient Hx of DVT -On Eliquis COPD -Continue meds as ordered Gout -Allopurinol DLP -Atorvastatin Depression -Sertraline BPH -Tamsulosin GERD -Protonix. VS, I&O, 24H, Christiano Vital Signs/I&O Vital Signs Date Time Temp Pulse Resp B/P (MAP) Pulse Ox O2 Delivery O2 Flow Rate FiO2 12/29/18 14:00 98.4 89 18 112/63 (79) 84 6.0 I&O- Last 24 Hours up to 6 AM 12/29/18 06:00 Intake Total 900 ml Output Total 0 ml Balance 900 ml Laboratory Data 24H LABS Laboratory Tests 2 12/29/18 06:11: Immature Granulocyte % (Auto) 2.8, White Blood Count 1.8L, Red Blood Count 2.86L, Hemoglobin 8.0L, Hematocrit 24.9L, Mean Corpuscular Volume 87.1, Mean Corpuscular Hemoglobin 28.0, Mean Corpuscular Hemoglobin Concent 32.1, Red Cell Distribution Width 24.1H, Platelet Count 60L, Neutrophils (%) (Auto) 82.5H, Lymphocytes (%) (Auto) 7.9L, Monocytes (%) (Auto) 6.2H, Eosinophils (%) (Auto) 0.6, Basophils (%) (Auto) 0.0, Neutrophils # (Auto) 1.5L, Lymphocytes # (Auto) 0.1L, Monocytes # (Auto) 0.1, Eosinophils # (Auto) 0.0, Basophils # (Auto) 0.0, Nucleated Red Blood Cells % (auto) 1.1H, Immature Platelet Fraction 4.0, Anion Gap 12, Glomerular Filtration Rate 40.2L, Blood Urea Nitrogen 33H, Creatinine 1.78H, Sodium Level 136, Potassium Level 2.7*L, Chloride Level 104, Carbon Dioxide Level 20L, Calcium Level 7.9L, Aspartate Amino Transf (AST/SGOT) 28, Alanine Aminotransferase (ALT/SGPT) 27, Alkaline Phosphatase 72, Total Bilirubin 0.5, Total Protein 5.4L, Albumin 1.6L, Magnesium Level 1.5L, Albumin/Globulin Ratio 0.42L CBC/BMP Laboratory Tests 12/29/18 06:11 Red Blood Count 2.86 L, Mean Corpuscular Volume 87.1, Mean Corpuscular Hemo globin 28.0, Mean Corpuscular Hemoglobin Concent 32.1, Red Cell Distribution Width 24.1 H, Neutrophils (%) (Auto) 82.5 H, Lymphocytes (%) (Auto) 7.9 L, Monocytes (%) (Auto) 6.2 H, Eosinophils (%) (Auto) 0.6, Basophils (%) (Auto) 0.0, Neutrophils # (Auto) 1.5 L, Lymphocytes # (Auto) 0.1 L, Monocytes # (Auto) 0.1, Eosinophils # (Auto) 0.0, Basophils # (Auto) 0.0, Calcium Level 7.9 L, Aspartate Amino Transf (AST/SGOT) 28, Alanine Aminotransferase (ALT/SGPT) 27, Alkaline Phosphatase 72, Total Bilirubin 0.5, Total Protein 5.4 L, Albumin 1.6 L ELVIRA MURILLO MD December 29, 2018 15:20
[2018-12-29] MEDS: cefTRIAXone SOD 2 GM in D5W MINI-BAG PLUS 50 ML IV SCH (17:10)
[2018-12-29 18:01] LABS: CALCIUM LEVEL 8.1 MG/DL (8.8-10.2); CREATININE FOR GFR 1.96 MG/DL (0.70-1.30); POTASSIUM SERUM 3.2 MEQ/L (3.5-5.1)
[2018-12-29 20:00] VITALS: BP 150/67
[2018-12-29] MEDS: ASPIRIN 81 MG CHEW TABLET PO SCH (20:55)
[2018-12-29] MEDS: TAMSULOSIN 0.4 MG CAP PO SCH (20:55)
[2018-12-29] MEDS: ATORVASTATIN 20 MG TAB PO SCH (20:55)
--- NOTE | 2018-12-29 22:52 | CR.PDOC ---
General Date of Consultation: December 29, 2018 Referring Provider: LAXMI LYNN MD Attending Physician: Austin Diaz MD Consultation REASON FOR CONSULTATION/CHIEF COMPLAINT: Endocarditis HISTORY OF PRESENT ILLNESS: 73-year-old gentleman recently diagnosed with Mitral valve and [place] endocarditis with cultures positive for Streptococcus infantarius. He was discharge form [facility] with 4 weeks of IV Rocephin, with end of therapy date on 01/03/19. He returned to [facility] on 12/25/18 complaining of diarrhea, fever and difficulty ambulating. His labs and imaging showed chronic changes with a new infiltrate, his stool was negative for C diff, and blood cultures where negative. He was managed conservatively, and discharge to ARU on 12/28/18. Infection disease was consulted to from management of his endocarditis. On interview he was a please gentlemen. No acute complains. Denies chest pain, denies nausea, denied vomiting, denies changes in vision. Denies any recent illness. Denies shortness of breath, or difficulty breathing. with PMH of a. flutter and third degree AV block with pacemaker, multiple myeloma, DVT, COPD, multiple myeloma, and CKD with recent diagnosis of acute bacterial endocarditis with Streptococcus infantarius bacteremia presents to [facility] ER due to fever of 102F at home and admitted and treated for Febrile neutropenia 2/2 Acute . Patient was treated and improved to point the patient was transferred to ARU 12/28/18. Hospitalist was consulted for medical management. ALLERGIES: Please see below. HOME MEDICATIONS: Please see below. PAST MEDICAL HISTORY: 1. History of transitional cell carcinoma, status post right nephroureterectomy in 2001, done by Dr. Hylton with no adjuvant treatment. 2. Diagnosis of a monoclonal gammopathy, IgG lambda in 2012. 3. 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 4. 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 The patient is being treated was being treated for multiple myeloma with Velcade and dexamethasone until August. He started daratumumab and Revlimid in August 2018 due to progression on previous regimen. 5. Stage III chronic kidney disease, patient has kidney (The left one) 6. Hypertension 7. Gout 8. Deep vein thrombosis (DVT), on apixaban 9. Third-degree atrioventricular (AV) block, status post pacemaker insertion (11/26/17) PAST SURGICAL HISTORY: 1. Laminectomy done by Dr. Javier in 2012. 2. Transurethral resection of the prostate (TURP).. 3. Permanent pacemaker done by Dr. Lobato 11/26/2017. 4. Right orchiectomy January 2016. 5. Right ureteral nephrectomy 2001. 6. Multiple bone marrow biopsies. FAMILY HISTORY: Noncontributory SOCIAL HISTORY: SOCIAL HISTORY: Lee pack year. Stopped 16 years ago. He lives with his , who is a retired nurse. He denies alcohol use. 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 ROS CONSTITUTIONAL: No fevers, denies chills, denies weight loss, denies lethargy HEENT: No rhinorrhea, no itchy eyes, no congesion, CARDIOVASCULAR: No murmurs no palpitations and arrhythmias RESPIRATORY: Not cough, No SOB, no issues to report GASTROINTESTINAL: No nausea, no vomiting, no difficulty swallowing, no pain with eating, no diarrhea HEMATOLOGICAL: No bleeding GENITOURINARY:No Issues HEMATOLOGIC/LYMPHATIC: No swelling PE VITALS: See Below GENERAL APPEARANCE: Alert no acute distress. SKIN: Warm, well perfused. ENT food particles in his throat THORAX: Symmetrical. LUNGS: Clear to auscultation bilaterally. HEART: Normal S1, S2. No murmurs, no rubs, no gallops ABDOMEN: Soft. No masses. Bowel sounds are present. EXTREMITIES: Moves all extremities equally. No gross deformities. Healing wound on patient's left toes PULSES: 2+ upper and lower extremity . LABORATORY DATA: Please see below. ASSESSMENT/PLAN: This is a 73-year-old gentleman who was admitted with febrile neutropenia, found to have bacteremia with Streptococcus infantarius and endocarditis of the mitral valve. He is currently on Rocephin 2 g daily, with an date January 03. Following that admission, patient was readmitted for weakness and fever. His currently stable, currently undergoing rehabilitation. Her crutches on his most recent admission is negative.Continue ceftriaxone for patient's endocarditis.. Continue to monitor patient clinically, doing his rehabilitation treatment. Monitor st ooling habits for the possibility of C. difficile. Recommend probiotics, and yogurt to prevent c. diff Vital Signs/I&O Vital Signs Date Time Temp Pulse Resp B/P (MAP) Pulse Ox O2 Delivery O2 Flow Rate FiO2 12/29/18 20:54 86 150/67 12/29/18 20:00 98.3 20 90 6.0 I&O- Last 24 Hours up to 6 AM 12/29/18 06:00 Intake Total 900 ml Output Total 0 ml Balance 900 ml Laboratory Data Labs 24H Laboratory Tests 2 12/29/18 06:11: Immature Granulocyte % (Auto) 2.8, White Blood Count 1.8L, Red Blood Count 2.86L, Hemoglobin 8.0L, Hematocrit 24.9L, Mean Corpuscular Volume 87.1, Mean Corpuscular Hemoglobin 28.0, Mean Corpuscular Hemoglobin Concent 32.1, Red Cell Distribution Width 24.1H, Platelet Count 60L, Neutrophils (%) (Auto) 82.5H, Lymphocytes (%) (Auto) 7.9L, Monocytes (%) (Auto) 6.2H, Eosinophils (%) (Auto) 0.6, Basophils (%) (Auto) 0.0, Neutrophils # (Auto) 1.5L, Lymphocytes # (Auto) 0.1L, Monocytes # (Auto) 0.1, Eosinophils # (Auto) 0.0, Basophils # (Auto) 0.0, Nucleated Red Blood Cells % (auto) 1.1H, Immature Platelet Fraction 4.0, Anion Gap 12, Glomerular Filtration Rate 40.2L, Blood Urea Nitrogen 33H, Creatinine 1.78H, Sodium Level 136, Potassium Level 2.7*L, Chloride Level 104, Carbon Dioxide Level 20L, Calcium Level 7.9L, Aspartate Amino Transf (AST/SGOT) 28, Alanine Aminotransferase (ALT/SGPT) 27, Alkaline Phosphatase 72, Total Bilirubin 0.5, Total Protein 5.4L, Albumin 1.6L, Magnesium Level 1.5L, Albumin/Globulin Ratio 0.42L 12/29/18 17:25: Anion Gap 9, Glomerular Filtration Rate 36.0L, Blood Urea Nitrogen 35H, Creatinine 1.96H, Sodium Level 136, Potassium Level 3.2L, Chloride Level 106, Carbon Dioxide Level 21, Calcium Level 8.1L CBC/BMP Laboratory Tests 12/29/18 06:11 Red Blood Count 2.86 L, Mean Corpuscular Volume 87.1, Mean Corpuscular Hemoglobin 28.0, Mean Corpuscular Hemoglobin Concent 32.1, Red Cell Distribution Width 24.1 H, Neutrophils (%) (Auto) 82.5 H, Lymphocytes (%) (Auto) 7.9 L, Monocytes (%) (Auto) 6.2 H, Eosinophils (%) (Auto) 0.6, Basophils (%) (Auto) 0.0, Neutrophils # (Auto) 1.5 L, Lymphocytes # (Auto) 0.1 L, Monocytes # (Auto) 0.1, Eosinophils # (Auto) 0.0, Basophils # (Auto) 0.0, Calcium Level 7.9 L, Aspartate Amino Transf (AST/SGOT) 28, Alanine Aminotransferase (ALT/SGPT) 27, Alkaline Phosphatase 72, Total Bilirubin 0.5, Total Protein 5.4 L, Albumin 1.6 L 12/29/18 17:25 Calcium Level 8.1 L Allergies Coded Allergies: No Known Allergies (Unverified , 11/16/18) Home Medications Scheduled Acyclovir (Acyclovir) 400 Mg Tablet, 400 MG PO BID, (Reported) Allopurinol (Zyloprim) 300 Mg Tablet, 300 MG PO DAILY, (Reported) Apixaban (Eliquis) 5 Mg Tab, 5 MG PO BID, (Reported) Aspirin (Aspirin EC) 81 Mg Tab, 81 MG PO QPM, (Reported) Atorvastatin Calcium (Atorvastatin Calcium) 20 Mg Tab, 20 MG PO QHS, (Reported) Ceftriaxone Sodium (Ceftriaxone) 1 Gm Vial, 2 GM IV DAILY, (Reported) SPOUSE ADMINISTERS THROUGH PORT DAILY Cholecalciferol (Vitamin D3) (Vitamin D3) 2,000 Unit Capsule, 2,000 UNIT PO DAILY, (Reported) Dexamethasone (Dexamethasone) 4 Mg Tablet, 20 MG PO Q2WK, (Reported) TAKES ON THE WEDNESDAY BEFORE CHEMO ([id number]) Famotidine (Famotidine) 20 Mg Tab, 20 MG PO DAILY, (Reported) Metoprolol Succinate (Metoprolol Succinate) 25 Mg Tab.er.24h, 25 MG PO BID, (Reported) Montelukast Sodium (Montelukast Sodium) 10 Mg Tablet, 10 MG PO Q2WK, (Reported) TAKES PRIOR TO CHEMO EVERY 2 WEEKS Sertraline Hcl (Sertraline HCl) 50 Mg Tab, 100 MG PO DAILY, (Reported) Tamsulosin HCl (Flomax) 0.4 Mg Cap, 0.4 MG PO QHS, (Reported) Tiotropium [place] (Spiriva Respimat) 4 Gm Mist.inhal, 2 PUFFS INH DAILY, (Reported) Zinc Oxide (Boudreauxs) 16% Oint...g., 1 OZ TOP TID, #30 Scheduled PRN Acetaminophen (Acetaminophen) 325 Mg Tab, 650 MG PO Q4H PRN for PAIN, (Reported) Albuterol Sulfate (Ventolin Hfa) 18 Gm Hfa.aer.ad, 2 PUFF INH Q4H PRN for SHORTNESS OF BREATH, (Reported) Ipratropium/Albuterol Sulfate (Iprat-Albut 0.5-3(2.5) mg/3 ml) 3 Ml Ampul.neb, 3 ML NEB Q6H PRN for SOB/WHEEZING for 30 Days, #30 GME ATTESTATION GME ATTESTATION My faculty preceptor for this patient encounter was physically present during the encounter and was fully available. All aspects of the patient interview, examination, medical decision making process, and medical care plan development were reviewed and approved by the faculty preceptor. The faculty preceptor is aware and concurs with the plan as stated in the body of this note and will attest to such by his/her cosignature. RONAL AUGUSTINE DO December 29, 2018 22:52
[2018-12-30 00:38] LABS: CALCIUM LEVEL 7.5 MG/DL (8.8-10.2); CREATININE FOR GFR 2.07 MG/DL (0.70-1.30); GLOMERULAR FILTRATION RATE 33.8 (>42); POTASSIUM SERUM 3.5 MEQ/L (3.5-5.1)
[2018-12-30 05:15] VITALS: BP 111/62
[2018-12-30 06:44] LABS: CALCIUM LEVEL 7.9 MG/DL (8.8-10.2); CREATININE FOR GFR 2.03 MG/DL (0.70-1.30); GLOMERULAR FILTRATION RATE 34.5 (>42); MAGNESIUM LEVEL 1.6 MG/DL (1.8-2.4); POTASSIUM SERUM 3.4 MEQ/L (3.5-5.1)
[2018-12-30] MEDS: TIOTROPIUM INHALER/CAPSULE (SPIRIVA) INH SCH (07:07)
--- NOTE | 2018-12-30 08:20 | IPNPDOC ---
Subjective Date Seen The patient was seen on 12/30/18. Subjective Chief Complaint/HPI debility Events since last encounter 73 yo male evaluated in ARU. Admitted for debility and weakness. Goal is to improve function enough to get home. Planned IV Abx until 01/05 for infective endocarditis secondary to streptococcus infantarius. Constitutional: Denies: Chills, Fever, Night Sweats ENT: Denies: Head Aches, Ear Pain, Dysphagia Pulmonary: Reports: Dyspnea (with hypoxia on exertion using 6LNC) Gastrointestinal: Denies: Nausea, Vomiting, Abdominal Pain, Diarrhea, Constipation Genitourinary: Denies: Dysuria, Frequency, Incontinence, Retention Psych: Reports: Mood Normal; Denies: Depression, Memory Issues Objective Physical Examination General Exam: Positive: Alert, No Acute Distress Neck Exam: Positive: Supple; Negative: JVD, thyromegaly Chest Exam: Positive: Clear to auscultation, Normal air movement Heart Exam: Positive: Rate Normal, Regular Rhythm, Normal S1, Normal S2; Negative: Murmurs, Rubs Abdomen Exam: Positive: Normal bowel sounds, Soft; Negative: Tenderness, Hepatospenomegaly Psych Exam: Positive: Mental status NL, Mood NL, Oriented x 3 A-FIB/CHADSVASC A-FIB History Current/History of A-Fib/PAF?: No Current Oral Anticoagulant The: Yes Assessment /Plan Problems (1) Endocarditis Status: Acute Problem Text: secondary to streptococcus infantarius. Ceftriaxone 2 grams daily until 01/05. 12/30/18 1157: patient developed worsening dyspnea requiring 10 LNC to keep sats above 90%. CXR with Pulmonary edema. Lasix IV 60 mg x 1 ordered. Gallo ordered. Nephro informed and will evaluated patient for volume status. Patient transfer placed for PCU due to worsening condition, need for I/O, telemetry and critical care monitoring. (2) Hypomagnesemia Status: Acute Problem Text: Mag ox 400 mg po bid (3) Hypokalemia Status: Acute Problem Text: received replacement yesterday. now at 3.4. Will replace magnesium, which should assist in potassium correction. Repeat BMP in am. (4) COPD (chronic obstructive pulmonary disease) Problem Text: exertional hypoxia into 70s. Currently requiring 6LNC for oxygenation which is not at his baseline. Will eval CXR. Changed Duoneb f requency to q 6 hrs scheduled. Continue Spiriva (5) Heart block AV third degree Status: Acute Problem Text: has pacemaker (6) HTN (hypertension) Response to Treatment: Stable Problem Text: Continue Metoprolol (7) MARINO (obstructive sleep apnea) Status: Chronic Response to Treatment: Stable (8) Chronic kidney disease (CKD) Status: Chronic Response to Treatment: Stable Problem Text: worsening Cr at 2.0. Baseline appears to run between 1.4-1.6. Follows with Dr. Adams as an outpatient. Will consult Nephrology for their recommendations. (9) Multiple myeloma Status: Chronic Response to Treatment: Stable Problem Text: Follows with Dr. Rice outpatient. (10) GERD (gastroesophageal reflux disease) Status: Chronic Problem Text: Continue PPI. (11) DVT (deep venous thrombosis) Status: Chronic Problem Text: Continue Xarelto 5 mg po bid (12) Gout Status: Chronic Plan/VTE VTE Prophylaxis Ordered?: Yes VS, I&O, 24H, Fishbone Vital Signs/I&O Vital Signs Date Time Temp Pulse Resp B/P (MAP) Pulse Ox O2 Delivery O2 Flow Rate FiO2 12/30/18 05:15 98.6 82 22 111/62 (78) 88 6.0 I&O- Last 24 Hours up to 6 AM 12/30/18 06:00 Intake Total 1710 ml Output Total 1896 ml Balance -186 ml Laboratory Data 24H LABS Laboratory Tests 2 12/29/18 17:25: Anion Gap 9, Glomerular Filtration Rate 36.0L, Blood Urea Nitrogen 35H, Creatinine 1.96H, Sodium Level 136, Potassium Level 3.2L, Chloride Level 106, Carbon Dioxide Level 21, Calcium Level 8.1L 12/29/18 23:53: Anion Gap 12, Glomerular Filtration Rate 33.8L, Blood Urea Nitrogen 38H, Creatinine 2.07H, Sodium Level 138, Potassium Level 3.5, Chloride Level 107, Carbon Dioxide Level 19L, Calcium Level 7.5L 12/30/18 05:57: Anion Gap 13, Glomerular Filtration Rate 34.5L, Blood Urea Nitrogen 37H, Creatinine 2.03H, Sodium Level 138, Potassium Level 3.4L, Chloride Level 107, Carbon Dioxide Level 18L, Calcium Level 7.9L, Magnesium Level 1.6L CBC/BMP Laboratory Tests 12/29/18 17:25 Calcium Level 8.1 L 5/9/19 23:53 Calcium Level 7.5 L 12/30/18 05:57 Calcium Level 7.9 L Martha Soto CONTINUOUS ABSORPTION PROCESS OPERATOR December 30, 2018 08:20
[2018-12-30] MEDS ORDERED: IPRATROPIUM 0.5MG/ALBUTEROL 2.5MG INH SOL UD 3ML (DUONEB)(J7620) NEB PRN (08:30)
[2018-12-30] MEDS: VITAMIN D 1,000 INTERNATIONAL UNITS TABLET PO SCH (08:36)
[2018-12-30] MEDS: PANTOPRAZOLE 40MG TAB (PROTONIX) PO SCH (08:36)
[2018-12-30 08:37] VITALS: BP 111/62
[2018-12-30] MEDS: LACTOBACILLUS ACIDOPHILUS CAP (BACID) PO SCH (08:37)
[2018-12-30] MEDS: ACYCLOVIR 200 MG CAPSULE PO SCH (08:37)
[2018-12-30] MEDS: SERTRALINE 100 MG TAB PO SCH (08:37)
[2018-12-30] MEDS: APIXABAN 5 MG TAB (ELIQUIS) PO SCH (08:37)
[2018-12-30] MEDS: ALLOPURINOL 300 MG TAB PO SCH (08:37)
[2018-12-30] MEDS: METOPROLOL SUCC *XL* 25MG TAB (TopROL *XL*) PO SCH (08:37)
[2018-12-30] MEDS: FUROSEMIDE 40 MG TAB PO SCH (08:37)
[2018-12-30] MEDS: SODIUM CHLORIDE 0.9% INJ 10 ML SYR IV SCH (08:38)
[2018-12-30] MEDS: NYSTATIN 100,000 UNITS/GM TOPICAL PWD 15 GM TOP SCH (08:39)
[2018-12-30] MEDS: BOUDREAUX'S BUTT PASTE 4OZ TOP SCH (08:39)
[2018-12-30] MEDS ORDERED: MAGNESIUM OXIDE 400 MG TAB (MAG-OX) PO SCH (09:00)
--- NOTE | 2018-12-30 09:39 | REP ---
CHEST, PORTABLE: AP portable view of the chest is performed and compared with prior studies, most recently 12/25/2018. There is cardiomegaly. There is vascular congestion and diffuse interstitial edema. There is focal parenchymal atelectasis or infiltrate in the left base. There is mild tortuosity of the thoracic aorta. Right dual lead pacemaker is noted. There is a left central venous catheter. IMPRESSION: Findings compatible with CHF and pulmonary edema. Unreviewed
[2018-12-30 10:17] LABS: COMPLEMENT C3 116 MG/DL (90-180); COMPLEMENT C4 37 MG/DL (10-40)
--- NOTE | 2018-12-30 11:15 | REP ---
REASON: Hypoxia and pancytopenia with history of endocarditis. COMPARISON: Multiple, latest 11/14/2018. Lack of intravenous contrast decreases the sensitivity of the exam. The mediastinum and pulmonary nickie are unchanged. No mass or gross adenopathy has developed. There are no pleural or pericardial effusions. There is no change in the appearance of the imaged upper abdomen or imaged osseous structures. Once again, there are multiple lytic lesions seen in the thoracic spine status quo. Evaluation of the lung [place] shows marked emphysematous changes status quo. The right lower lobe lesions seen previously is unchanged. Asymmetric densities and ground glass densities are seen scattered throughout the lung t[place] significantly increased from the prior exam, but in no particular fashion. There is evidence of early varicoid bronchiectasis. There is a new 1.6 cm size asymmetric density in the inferior lingula likely subsegmental atelectatic change. IMPRESSION: 1. Lung abnormalities as described above. There is no revised Fleischner's Society criteria on the recommendation of followup for such abnormalities. Followup should be based on clinical assessment. I cannot rule out the possibility of acute disease superimposed upon chronic change. 2. No change in the skeletal structures are described above. 3. Other findings as described above. Electronically Signed by James Del Toro DO 12/30/2018 02:41 P
[2018-12-30] MEDS ORDERED: POTASSIUM CHLORIDE 10 MEQ SR TABLET PO ONE ×2 (11:30→14:00)
[2018-12-30] MEDS: SODIUM CHLORIDE 0.9% INJ 10 ML SYR IV PRN (11:37)
[2018-12-30] MEDS ORDERED: FUROSEMIDE 100 MG/10 ML VIAL (J1940) IV ONE (12:00)
--- NOTE | 2018-12-30 12:14 | NUR ---
Recommend level 2 mechanically altered (NDD) solids and thin liquids. Pt w/ increased shortness of breath, poor respiratory-swallow coordination, and increased confusion. These factors cause increased risk of airway occlusion w/ advanced level solids. Addendum: 12/30/[address] [facility] Amended: Links added.
[2018-12-30 12:32] LABS: APPEARANCE, URINE CLEAR (CLEAR); BACTERIA, URINE AUTO NEGATIVE (NEGATIVE); BILIRUBIN, URINE AUTO NEGATIVE (NEGATIVE); BLOOD, URINE BLOOD NEGATIVE (NEGATIVE); COLOR, URINE YELLOW (YELLOW); GLUCOSE, URINE (UA) AUTO NEGATIVE (NEGATIVE); KETONE, URINE AUTO NEGATIVE (NEGATIVE); LEUKOCYTE ESTERASE, URINE AUTO NEGATIVE (NEGATIVE); NITRITE, URINE AUTO NEGATIVE (NEGATIVE); PROTEIN, URINE AUTO 1+ mg/dL (NEGATIVE); RBC, URINE AUTO 1 /HPF (0-3); SPECIFIC GRAVITY URINE AUTO 1.013 (1.002-1.035); SQUAMOUS EPITHELIAL CELL UR AU 0 /HPF (0-6); UROBILINOGEN, URINE AUTO 0.2 mg/dL (0.0-2.0); WBC, URINE AUTO 1 /HPF (0-3)
[2018-12-30 14:00] VITALS: BP 105/66
[2018-12-30] MEDS ORDERED: IPRA0.00 NEB (14:12)
[2018-12-30] MEDS ORDERED: BOUDPST TOP (14:12)
[2018-12-30] MEDS ORDERED: FUROSEMIDE injection 250 MG in D5W 225 ML IV SCH (15:00)
--- NOTE | 2018-12-31 11:00 | HPE ---
DATE OF ADMISSION: 12/28/2018 DATE OF DISCHARGE/TRANSFER: 12/30/2018 Discharge from acute rehabilitation unit (ARU) and admission to progressive care unit (PCU). ATTENDING PHYSICIAN: Dr. Edy Mcintosh This s a very pleasant 73-year-old gentleman who has had multiple admissions back and forth between acute rehabilitation unit (ARU) as well as acute care over the last 7 days. Patient was admitted to [facility] on 12/25/2018. He presented to the emergency department (ED) with a fever of 102 at home. Patient was found to have endocarditis, which proved positive for Streptococcus infantarius. Patient was placed on ceftriaxone 2 grams every 24 hours and he is to finished that course on 01/05/2019. Patient was discharged to acute rehabilitation unit on 12/28/2018 as he was stable and deemed appropriate for continuous rehabilitation needs for debility. Patient has had increased use of oxygen. He is a non-oxygen dependent chronic obstructive pulmonary disease (COPD) patient and was found to have difficulty maintaining his oxygen saturations on 6-10 liters via nasal cannula. Chest x-ray was completed today and showed congestive heart failure (CHF) pattern with pulmonary edema and he was give Lasix 60 mg IV times one. A Gallo catheter was placed and patient diuresed 800 mL per nursing report. It was deemed appropriate to transition patient to a unit with critical care monitoring. PAST MEDICAL HISTORY: Significant for: 1. Most recently bacterial endocarditis. 2. Transitional cell carcinoma status post right nephroureterectomy in 2001. 3. Diffuse large B cell lymphoma in 2015 treated with chemotherapy and radiation. 4. IgG lambda multiple myeloma with thoracic and lumbar spine plasma cytoma and pathologic fracture of the right hip treated with chemotherapy. 5. Chronic kidney disease stage III followed by Dr. Gonzales Adams. 6. Hypertension. 7. Gout. 8. History of deep venous thrombosis. 9 Third degree AV block with pacemaker insertion November 2015. 10. Atrial flutter. PAST SURGICAL HISTORY: Significant for: 1. Laminectomy in 2012. 2. Transurethral resection of the prostate (TURP). 3. Permanent pacemaker placed November 2017. 4. Right orchiectomy January 2016. 5. Right ureteral nephrectomy 2001. 6. Multiple bone marrow biopsies. FAMILY HISTORY: Noncontributory. SOCIAL HISTORY: Former smoker. Denies drug or alcohol use. Lives at home with his . REVIEW OF SYSTEMS: Patient does complain of significant dyspnea with exertion as well as hypoxia on exertion. Today he was into the 70s with 6 liters of oxygen via nasal cannula. He does admit to dyspnea. Denies chest pain. Denies blurred vision. Denies dizziness. Does admit to fatigue and lethargy. Does admit to generalized weakness and debility. The rest of the 10-point review of systems is negative, other than previously stated. Most recent labs show potassium level of 3.4, creatinine, which has been climbing over the last several days of 2.0. Calcium 7.9, magnesium 1.6, and proBNP of 2270. Most recent CBC on 12/29/2018 showed a white blood cell count of 1.8, hemoglobin and hematocrit 8 and 24, platelets are low at 60. Repeat CBC is pending currently. PHYSICAL EXAMINATION: On physical exam, patient is pale in no acute distress. Mildly tachypneic, positive dyspnea with conversation. NECK: Supple without any visible jugular venous distention (JVD). CARDIOVASCULAR: Heart regular rhythm are regular. PULMONARY: Lungs are diminished bibasilar. ABDOMEN: Soft and nontender. He has an obese abdomen. No organomegaly is appreciated. EXTREMITIES: Bilateral lower extremities show positive pedal pulses. ASSESSMENT/PLAN: 1. Bacterial endocarditis secondary to Streptococcus infantarius: Patient will continue ceftriaxone 2 grams IV every 24 hours until 01/05/2019 to complete his course. 2. Congestive heart failure with pulmonary edema: Patient has already received Lasix 50 mg times one IV and is subsequently continuing with the Lasix IV drip as ordered by nephrology. 3. Chronic obstructive pulmonary disease (COPD): Patient will continue his DuoNebs every 6 hours as well as continuing with his Spiriva. We will continue to oxygenate patient to keep his saturations above 90%. 4. Hypomagnesemia: Patient was replaced with oral magnesium on the acute rehabilitation unit. He may require magnesium runs pending his results with diuresis. 5. Hypokalemia: Will need to monitor his potassium levels in conjunction with his Lasix IV drip. 6. Third degree AV heart block. 7. Hypertension. 8. Obstructive sleep apnea: Patient will continue CPAP at hour of sleep. 9. Chronic kidney disease: Patient is status post nephrology consult. She will be managing and following patient in conjunction with hospitalist services as well as infectious disease. 10. Multiple myeloma: Patient follows with Dr. Rice. We will continue his acyclovir while he is inpatient. 11. Gastroesophageal reflux disease (GERD): Patient will continue his proton pump inhibitor. 12. Deep venous thrombosis (DVT): Patient will continue his Xarelto 5 mg by mouth twice a day. The case was discussed with Dr. Edy Mcintosh and he is in agreeable to plan of care as well as admission to progressive care unit (PCU). Patient will be placed on telemetry, stat Transesophageal echocardiogram (ISMAEL) has been ordered to rule out any worsening valvular disorders. Patient is agreeable to plan of care.
--- NOTE | 2019-01-01 10:33 | CR ---
DATE OF CONSULTATION: 12/30/2018 REQUESTING PROVIDER: Martha Soto REASON FOR CONSULTATION: Acute kidney injury (DUSTIN) on chronic kidney disease (CKD) stage III. HISTORY OF PRESENT ILLNESS: Patient is an established patient of Dr. Gonzales Adams. Patient is a 73-year-old male office patient of Dr. Gonzales Adams with a past medical history of transitional cell carcinoma status post right nephroureterectomy in 2001 with baseline CKD stage III and solitary left kidney, history of diffuse large B-cell lymphoma in 2016 status post chemotherapy and radiation, complicated by pancytopenia, follows up with hematology, history of IgG lambda multiple myeloma with thoracic and lumbar spinal plasmacytoma on chemotherapy, hypertension, gout, history of deep venous thrombosis (DVT), history of third degree arteriovenous (AV) block, status post pacemaker insertion, and atrial flutter and other comorbid conditions mentioned below. Patient was recently diagnosed with acute bacterial endocarditis with streptococcus infantarius bacteremia, who was recently admitted and treated for febrile neutropenia and was subsequently transferred to the acute rehabilitation unit. In the acute rehabilitation unit, the patient has been requiring up to 10 liters of supplemental oxygen, and laboratory studies show acute on chronic renal failure. Nephrology service was consulted for help in the management of his kidney injury and diuretics. PAST MEDICAL HISTORY: As mentioned above. PAST SURGICAL HISTORY: Laminectomy, 2013. Transurethral resection of prostate. Permanent pacemaker. Right orchiectomy. Right nephrectomy. Multiple bone marrow biopsies. FAMILY HISTORY: Reviewed and he denies a family history of renal failure. SOCIAL HISTORY: Ex-smoker. Lives with his . Denies alcohol use. HOME MEDICATIONS: - acyclovir - allopurinol - Eliquis - aspirin - atorvastatin - colecalciferol - dexamethasone - famotidine - Lasix - metoprolol - montelukast - Sertraline - Flomax - Spiriva ALLERGIES: No known drug allergies. REVIEW OF SYSTEMS: CONSTITUTIONAL: He denies fevers or chills. EYES: He denies visual changes or tearing. ENT: Denies dysphagia or throat pain. CARDIAC: Reports recent diagnosis of endocarditis and reports edema. PULMONARY: Reports shortness of breath and oxygen use. Does not use oxygen at home, however. GASTROINTESTINAL (GI): Reports no nausea or vomiting. GENITOURINARY (): Reports Gallo catheter. Denies dysuria. MUSCULOSKELETAL: Reports history of gout and generalized weakness and debility. NEUROLOGIC: He denies seizure or syncope. HEMATOLOGIC: He reports pancytopenia, follows up with hematology. Reports history of chemotherapy. SKIN: Denies any new rashes or pruritus. All other review of systems found to be negative. VITAL SIGNS: Temperature 98.6, pulse 82, respiratory rate 22, blood pressure 111/62, saturating 88% on 6 liter nasal cannula. Intake yesterday was 1350. Urine output yesterday was 1200. Weight on the bed scale today is not recorded. GENERAL: Patient is seen lying down in bed in the rehabilitation unit. Elderly male. No acute distress. Speaking in full sentences. No conversational dyspnea. Extraocular muscles are intact. Tongue is moist. Neck is supple. Jugular veins are elevated. CARDIAC: S1, S2. 1+ edema in the peripheries. LUNGS: Show crackles bilaterally, and he is requiring significant supplemental oxygen. There is no accessory muscle use. ABDOMEN: Is soft and nontender. There are bowel sounds. GENITOURINARY: Shows Gallo catheter in place draining clear yellow urine. NEUROLOGIC: He is oriented times three, at baseline mentation. Conversational and interactive. LABS: White count 1.8, hemoglobin 8.0, platelets 60. Sodium 138, potassium 3.4, bicarbonate 18, BUN 27, creatinine 2.0, BNP 22,000. Blood cultures, no growth. Chest x-ray, 12/30/2018, shows congestive heart failure (CHF) pattern and pulmonary edema. INPATIENT MEDICATIONS: I started the patient on Lasix 5 mg/h. He also received Lasix 60 mg IV times one this morning. Ceftriaxone 2 grams IV daily, multiple runs of potassium and magnesium, acyclovir 400 mg by mouth twice a day, allopurinol 300 mg by mouth daily, Eliquis 5 mg by mouth twice a day, aspirin 81 mg by mouth daily, atorvastatin 20 mg by mouth nightly, Pepcid 20 mg by mouth daily, metoprolol 25 mg by mouth twice a day, sertraline 100 mg by mouth daily, Flomax 0.4 mg by mouth nightly. PROBLEMS: 1. Acute kidney injury (DUSTIN) on chronic kidney disease (CKD) stage III. Baseline creatinine is 1.6, presently with creatinine 2.0 in the setting of decompensated congestive heart failure. He has had a Gallo catheter placed. His diuretics are being escalated. He received Lasix 60 mg intravenous (IV) times one, and I am putting him on Lasix infusion 5 mg an hour. We will continue to monitor his urine output, daily weights, fluid balance, and daily renal panel. 2. Hypokalemia and hypomagnesemia. Expected to worsen with diuretic administration. I am giving him supplementation with both magnesium oxide and potassium chloride. Repeat potassium and magnesium again tomorrow. 3. Hypoxemia and shortness of breath with decompensated congestive heart failure and volume overload. Chest x-ray showed pulmonary edema. Patient is requiring anywhere between 6 to 10 liters of supplemental oxygen. He is being started on escalating diuretics for goal net negative 1-2 liters daily. 4. Pancytopenia. Patient is noted to be leukopenic, anemic, and thrombocytopenic. This is apparently a chronic problem for him and he does followup with hematology for the same. I would not do blood transfusion at this time until his volume status is further optimized. 5. Disposition. I have discussed with primary team regarding moving the patient to the medical floor and out of the rehabilitation unit. Thank you for involving me in the care of Mr. Maza. I will be happy to follow him along with you.
== END 2018-12-30 14:35 | disposition short-term general hospital (02) | DRG 947 ==
LOC: M PM&R 16:25 → M PCU 12-30 13:59
PROVIDERS: ADMIT Physical Medicine & Rehabilitation; ATTEND Physical Medicine & Rehabilitation
DX: R53.1 Weakness (principal); I33.0 Acute and subacute infective endocarditis; D61.810 Antineoplastic chemotherapy induced pancytopenia; I48.92 Unspecified atrial flutter; C90.00 Multiple myeloma not having achieved remission; C85.10 Unspecified B-cell lymphoma, unspecified site; N17.9 Acute kidney failure, unspecified; R26.89 Other abnormalities of gait and mobility; D72.819 Decreased white blood cell count, unspecified; M10.9 Gout, unspecified; L89.150 Pressure ulcer of sacral region, unstageable; F32.9 Major depressive disorder, single episode, unspecified; E83.42 Hypomagnesemia; J44.9 Chronic obstructive pulmonary disease, unspecified; N40.0 Benign prostatic hyperplasia without lower urinary tract symptoms; K21.9 Gastro-esophageal reflux disease without esophagitis; G47.33 Obstructive sleep apnea (adult) (pediatric); E87.6 Hypokalemia; K52.9 Noninfective gastroenteritis and colitis, unspecified; N18.3 Chronic kidney disease, stage 3 (moderate); Z92.3 Personal history of irradiation; Z92.21 Personal history of antineoplastic chemotherapy; Z86.718 Personal history of other venous thrombosis and embolism; Z79.01 Long term (current) use of anticoagulants; Z79.82 Long term (current) use of aspirin; Z79.899 Other long term (current) drug therapy; Z90.5 Acquired absence of kidney; Z95.0 Presence of cardiac pacemaker; Z87.891 Personal history of nicotine dependence

== ENCOUNTER 2018-12-30 14:14 | Inpatient (IN) | payer MEDICARE, OTHER ==
[~2018-12-30] VITALS: Ht 182.9 cm; Wt 103.1 kg
[2018-12-30] MEDS: FAMOTIDINE 20 MG TAB PO SCH (09:00)
[2018-12-30] MEDS: SERTRALINE HCL 50 MG TAB PO SCH (09:00)
[2018-12-30] MEDS: ALLOPURINOL 300 MG TAB PO SCH (09:00)
[~2018-12-30 14:14] MED LIST changes: +BOUDPST TOP; +IPRA0.00 NEB
[2018-12-30] MEDS ORDERED: MAALOX 30 ML SUSP *UDC PO PRN (14:30)
[2018-12-30] MEDS ORDERED: ACETAMINOPHEN 325 MG TAB PO PRN (15:45)
[2018-12-30] MEDS ORDERED: ALBUTEROL 90 MCG/ACT 8GM HFA INHALER INH PRN (15:45)
[2018-12-30] MEDS ORDERED: IPRATROPIUM 0.5MG/ALBUTEROL 2.5MG INH SOL UD 3ML (DUONEB)(J7620) NEB PRN (15:45)
[2018-12-30 15:55] LABS: BASO % 0.4 % (0.0-1.0); EOS % 0.8 % (0.0-3.0); HEMATOCRIT 24.1 % (42.0-52.0); HEMOGLOBIN 7.6 g/dl (13.5-17.5); LYMPH % 4.8 % (24.0-44.0); MEAN CORPUSCULAR HEMOGLOBIN 27.5 pg (27.0-33.0); MEAN CORPUSCULAR HGB CONC 31.5 g/dl (32.0-36.5); MEAN CORPUSCULAR VOLUME 87.3 fl (80.0-96.0); MONO # 0.2 10^3/uL (0.0-0.8); MONO % 7.2 % (0.0-5.0); NEUTROPHILS # 2.1 10^3/uL (1.8-7.7); NEUTROPHILS % 85.2 % (36.0-66.0); RED BLOOD COUNT 2.76 10^6/uL (4.30-6.10); WHITE BLOOD COUNT 2.5 10^3/uL (4.0-10.0)
[2018-12-30] MEDS: FUROSEMIDE injection 250 MG in D5W 225 ML IV SCH (16:17)
[2018-12-30 16:25] VITALS: BP 140/79
[2018-12-30 16:34] LABS: ALBUMIN 1.9 GM/DL (3.2-5.2); BILIRUBIN,TOTAL 0.3 MG/DL (0.2-1.0); CALCIUM LEVEL 7.4 MG/DL (8.8-10.2); CREATININE FOR GFR 1.92 MG/DL (0.70-1.30); GLOMERULAR FILTRATION RATE 36.8 (>42); MAGNESIUM LEVEL 1.6 MG/DL (1.8-2.4); POTASSIUM SERUM 3.2 MEQ/L (3.5-5.1); TOTAL PROTEIN 4.6 GM/DL (6.4-8.2)
[2018-12-30 16:37] LABS: LYMPH # 0.1 10^3/uL (1.5-4.5); PLATELET COUNT, AUTOMATED 68 10^3/uL (150-450)
[2018-12-30] MEDS ORDERED: MAGNESIUM OXIDE 400 MG TAB (MAG-OX) PO ONE (17:15)
[2018-12-30] MEDS ORDERED: POTASSIUM CHLORIDE 10 MEQ SR TABLET PO ONE ×2 (17:30→19:30)
[2018-12-30] MEDS: cefTRIAXone SOD 2 GM in D5W MINI-BAG PLUS 50 ML IV SCH (17:39)
--- NOTE | 2018-12-30 18:16 | IPN ---
DATE: 12/30/2018 Mr. Maza was in acute rehabilitation today but progressively got more short of breath. He desaturated and was requiring 10 liters of oxygen. He denied any chest pain. No nausea, vomiting or diarrhea. No abdominal pain. No urinary symptoms but was complaining of increasing shortness of breath and weakness. He was transferred to the progressive care unit (PCU) and was given IV Lasix with diuresis up to 1100 mL within the first couple of hours. He has had no fever or chills. PHYSICAL EXAMINATION: Temperature is 97.8, pulse 84, respirations 19, oxygen saturation 94% on 10 liters, 88% on six liters. HEART: Normal S1, S2, distant. No murmurs appreciated. LUNGS: Diminished breath sounds bilaterally at the bases. ABDOMEN: Morbidly obese, soft, nontender. EXTREMITIES: +1 ankle edema bilaterally. LABORATORY DATA: White count is 2.5, hemoglobin 7.6, hematocrit 24.1, platelets 68, 85% neutrophils, 5% lymphocytes, 7% monocytes. Sodium 137, potassium 3.2, chloride 108, bicarbonate 20, BUN 40, creatinine 1.92, glucose 148, calcium 7.4, magnesium 1.6, AST 49, ALT 42, alkaline phosphatase 82, BNP 2270, albumin 1.9. Blood cultures two sets were ordered today and are pending. Chest CT done on 12/30/2018 shows multiple lytic lesions seen in the thoracic spine, emphysema of both lungs, right lower lobe lesions unchanged, asymmetric density, ground-glass scattered throughout both lung t[place] significantly increased from prior examination. IMPRESSION: 1. Mitral valve endocarditis with moderate tricuspid regurgitation and moderate mitral regurgitation from transesophageal echocardiogram done on 12/13/2018. The patient is transferred for worsening of congestive heart failure and there would be concern of worsening mitral valve regurgitation or destruction of the valve and therefore I would recommend transesophageal echocardiogram. 2. Congestive heart failure (CHF). The patient is being diuresed appropriately with IV Lasix. Gallo catheter was placed. The patient has received furosemide 250 mg IV. He is on metoprolol. 3. Multiple myeloma with multiple bony lesions. The patient's chemotherapy is on hold. PLAN: Continue with IV ceftriaxone 2 grams every 24 hours. Consult cardiology for congestive heart failure and transesophageal echocardiogram (ISMAEL). Repeat blood cultures to rule out other sources of infection or recurrent bacteremia.
[2018-12-30 20:00] VITALS: BP 136/62
[2018-12-30] MEDS: ASPIRIN 81 MG ENTERIC TAB PO SCH (20:25)
[2018-12-30] MEDS: DOCUSATE SODIUM 100 MG CAP PO SCH (20:25)
[2018-12-30] MEDS: APIXABAN 5 MG TAB (ELIQUIS) PO SCH (20:25)
[2018-12-30] MEDS: ATORVASTATIN 20 MG TAB PO SCH (20:25)
[2018-12-30] MEDS: ACYCLOVIR 200 MG CAPSULE PO SCH (20:26)
[2018-12-30] MEDS: TAMSULOSIN 0.4 MG CAP PO SCH (20:27)
[2018-12-30] MEDS: METOPROLOL SUCC *XL* 25MG TAB (TopROL *XL*) PO SCH (20:28)
[2018-12-30] MEDS: BOUDREAUX'S BUTT PASTE TOP SCH (20:29)
[2018-12-30] MEDS ORDERED: ACYCLOVIR 200 MG CAPSULE PO SCH (21:00)
[2018-12-30 23:28] LABS: CALCIUM LEVEL 7.6 MG/DL (8.8-10.2); CREATININE FOR GFR 1.88 MG/DL (0.70-1.30); GLOMERULAR FILTRATION RATE 37.7 (>42); MAGNESIUM LEVEL 1.5 MG/DL (1.8-2.4); POTASSIUM SERUM 3.9 MEQ/L (3.5-5.1)
[2018-12-30 23:59] VITALS: BP 127/66
[2018-12-31] VITALS (7 sets, daily range): BP systolic 111–136; BP diastolic 61–78
[2018-12-31] MEDS ORDERED: MAGNESIUM OXIDE 400 MG TAB (MAG-OX) PO ONE ×2 (00:30→07:15)
[2018-12-31 03:41] LABS: HEMATOCRIT 24.6 % (42.0-52.0); HEMOGLOBIN 7.6 g/dl (13.5-17.5); MEAN CORPUSCULAR HEMOGLOBIN 27.2 pg (27.0-33.0); MEAN CORPUSCULAR HGB CONC 30.9 g/dl (32.0-36.5); MEAN CORPUSCULAR VOLUME 88.2 fl (80.0-96.0); RED BLOOD COUNT 2.79 10^6/uL (4.30-6.10); WHITE BLOOD COUNT 2.7 10^3/uL (4.0-10.0)
[2018-12-31 03:42] LABS: PLATELET COUNT, AUTOMATED 66 10^3/uL (150-450)
[2018-12-31 05:18] LABS: ALBUMIN 1.9 GM/DL (3.2-5.2); BILIRUBIN,TOTAL 0.4 MG/DL (0.2-1.0); CALCIUM LEVEL 7.4 MG/DL (8.8-10.2); CREATININE FOR GFR 1.87 MG/DL (0.70-1.30); MAGNESIUM LEVEL 1.5 MG/DL (1.8-2.4); POTASSIUM SERUM 3.8 MEQ/L (3.5-5.1); TOTAL PROTEIN 4.7 GM/DL (6.4-8.2)
[2018-12-31] MEDS ORDERED: MAG SULF 1GM/100ML (MAG RUN) 1 GM in APPROPRIATE DILUENT 1 EA IV ONE (06:30)
--- NOTE | 2018-12-31 08:05 | REP ---
Portable chest x-ray: Single view. History: Follow-up pulmonary edema. Comparison study: December 30, 2018. Findings: A left-sided Mrrkqe-F-Syex catheter seen in place. Pacemaker leads are noted in the right heart via the right side. Mild cardiomegaly is observed. EKG electrodes are seen. Pulmonary vascular cephalization is somewhat improved. Interstitial markings persist right more so than left. There is some improvement on the left. Electronically Signed by Alfredito Gregorio MD 12/31/2018 07:56 A
[2018-12-31] MEDS: BOUDREAUX'S BUTT PASTE TOP SCH ×3 (09:57→20:19)
[2018-12-31] MEDS: ACYCLOVIR 200 MG CAPSULE PO SCH ×2 (09:58→20:18)
[2018-12-31] MEDS: POTASSIUM CHLORIDE 10 MEQ SR TABLET PO SCH (09:58)
[2018-12-31] MEDS: METOPROLOL SUCC *XL* 25MG TAB (TopROL *XL*) PO SCH ×2 (09:59→20:19)
[2018-12-31] MEDS: ALLOPURINOL 300 MG TAB PO SCH (09:59)
[2018-12-31] MEDS: APIXABAN 5 MG TAB (ELIQUIS) PO SCH ×2 (09:59→20:18)
[2018-12-31] MEDS: FAMOTIDINE 20 MG TAB PO SCH (09:59)
[2018-12-31] MEDS: SERTRALINE HCL 50 MG TAB PO SCH (09:59)
[2018-12-31] MEDS: DOCUSATE SODIUM 100 MG CAP PO SCH ×2 (10:00→20:02)
--- NOTE | 2018-12-31 10:54 | IPNPDOC ---
Date Seen The patient was seen on 12/31/18. Progress Note SUBJECTIVE: Patient yesterday had progressive shortness of breath and require transfer to inpatient unit. He was found to have acute decompensated CHF and was started on lasix drip, blood culture obtained, and I spoke with cardiology. Cardiology plans to do ISMAEL on Wednesday. Yesterday he felt better after moving to PCU and -[id number]. This morning he is feeling better but still on lasix and will continue to diureses. Will continue to monitor electrolytes and replace as needed. OBJECTIVE PHYSICAL EXAMINATION: VITAL SIGNS: Please see below GENERAL APPEARANCE: Resting comfortably, HEENT: Normocephalic, PERRLA, Mucous moist, CARDIOVASCULAR: S1,S2, pulse present, regularly, regular, left-sided port for IV access LUNGS: Equal air entry b/l, no wheezes or crackle ABDOMEN: Soft, BS present, no tenderness, no guarding EXTREMITIES: B/L no edema, capillary refill present SKIN: Warm, No fever NEUROLOGICAL: Cranial nerves grossly intact PSYCHIATRIC: Normal mood and affect for current situation LABORATORY DATA, IMAGING STUDIES, MICROBIOLOGY: Please see below. ]ASSESSMENT/PLAN: 73-year-old gentleman with PMH of a. flutter and third degree AV block with pacemaker, multiple myeloma, DVT, COPD, multiple myeloma, and CKD with recent diagnosis of acute bacterial endocarditis with Streptococcus infantarius bacteremia presents to [facility] ER due to fever of 102F at home, weakness, and dehydration and admitted and treated for Febrile neutropenia 2/2 Acute bacterial endocarditis with Streptococcus infantarius bacteremia. Patient was treated and improved to point the patient was transferred to ARU 12/28/18. Patient had progressive shortness of breath and thus require transfer to inpatient unit. He was found to have acute decompensated CHF and was started on lasix drip, blood culture obtained, and cardiology consulted. Cardiology's ISMAEL for further evaluation. Acute decompensated CHF -Lasix drip -Telemetry, likely monitoring -I and O'sSabino -Cardiology Dr. Mercado: ISMAEL -Blood culture Hx of Febrile neutropenia 2/2 Acute bacterial endocarditis with Streptococcus infantarius bacteremia -s/p recent hospitalization from 12/04-12/21/18 at which time a ISMAEL done on 12/13 was found to be positive for vegetations after the patient was noted to bacteremic from Streptococcus infantarius -ID Dr. Lay:Cont Ceftriaxone 2g q24h until 01/05 Pancytopenia 2/2 Hx of Chemotherapy -Follows with Dr. Rice of Oncology -consider Neupogen if his ANC drops <1500 -No indication for packed red blood cell or platelet transfusion at this time A/CKD Stage III, improving -Serum Cr at baseline -on lasix A flutter / Hx of Pacemaker -Continue with metoprolol, Eliquis, asa Multiple Myeloma -Patient's treatment regimen includes Revlimid and Daratumumab, with last dose 3 weeks ago -c/w Acyclovir for prophylaxis -Follow-up with Dr. Rice as outpatient Hx of DVT -On Eliquis COPD -Continue meds as ordered Gout -Allopurinol DLP -Atorvastatin Depression -Sertraline BPH -Tamsulosin GERD -Protonix. DVT prop as above Patient wishes to be DNR/DNI. A-FIB/CHADSVASC A-FIB History Current/History of A-Fib/PAF?: Yes VS, I&O, 24H, Fishbone Vital Signs/I&O Vital Signs Date Time Temp Pulse Resp B/P (MAP) Pulse Ox O2 Delivery O2 Flow Rate FiO2 12/31/18 09:59 84 122/78 12/31/18 08:11 6.0 12/31/18 08:00 98.7 24 90 12/31/18 04:00 96 I&O- Last 24 Hours up to 6 AM 12/31/18 06:00 Intake Total 345 ml Output Total 1820 ml Balance -1475 ml Laboratory Data 24H LABS Laboratory Tests 2 12/30/18 15:40: Immature Granulocyte % (Auto) 1.6, White Blood Count 2.5L, Red Blood Count 2.76L, Hemoglobin 7.6L, Hematocrit 24.1L, Mean Corpuscular Volume 87.3, Mean Corpuscular Hemoglobin 27.5, Mean Corpuscular Hemoglobin Concent 31.5L, Red Cell Distribution Width 24.2H, Platelet Count 68L, Neutrophils (%) (Auto) 85.2H, Lymphocytes (%) (Auto) 4.8L, Monocytes (%) (Auto) 7.2H, Eosinophils (%) (Auto) 0.8, Basophils (%) (Auto) 0.4, Neutrophils # (Auto) 2.1, Lymphocytes # (Auto) 0.1L, Monocytes # (Auto) 0.2, Eosinophils # (Auto) 0.0, Basophils # (Auto) 0.0, Nucleated Red Blood Cells % (auto) 2.4H, Immature Platelet Fraction 4.2, Anion Gap 9, Glomerular Filtration Rate 36.8L, Blood Urea Nitrogen 40H, Creatinine 1.92H, Sodium Level 137, Potassium Level 3.2L, Chloride Level 108H, Carbon Dioxide Level 20L, Calcium Level 7.4L, Aspartate Amino Transf (AST/SGOT) 49H, Alanine Aminotransferase (ALT/SGPT) 42, Alkaline Phosphatase 82, Total Bilirubin 0.3, Total Protein 4.6L, Albumin 1.9L, Magnesium Level 1.6L, Albumin/Globulin Ratio 0.70L 12/30/18 22:49: Anion Gap 9, Glomerular Filtration Rate 37.7L, Blood Urea Nitrogen 37H, Creatinine 1.88H, Sodium Level 140, Potassium Level 3.9#, Chloride Level 111H, Carbon Dioxide Level 20L, Calcium Level 7.6L, Magnesium Level 1.5L 12/31/18 03:03: Nucleated Red Blood Cells % (auto) 2.2H, Anion Gap 11, Glomerular Filtration Rate 38.0L, Blood Urea Nitrogen 37H, Creatinine 1.87H, Sodium Level 141, Potas sium Level 3.8, Chloride Level 111H, Carbon Dioxide Level 19L, Calcium Level 7.4L, Aspartate Amino Transf (AST/SGOT) 42H, Alanine Aminotransferase (ALT/SGPT) 50, Alkaline Phosphatase 82, Total Bilirubin 0.4, Total Protein 4.7L, Albumin 1.9L, Magnesium Level 1.5L, Albumin/Globulin Ratio 0.68L CBC/BMP Laboratory Tests 12/30/18 15:40 Red Blood Count 2.76 L, Mean Corpuscular Volume 87.3, Mean Corpuscular Hemoglobin 27.5, Mean Corpuscular Hemoglobin Concent 31.5 L, Red Cell Dist ribution Width 24.2 H, Neutrophils (%) (Auto) 85.2 H, Lymphocytes (%) (Auto) 4.8 L, Monocytes (%) (Auto) 7.2 H, Eosinophils (%) (Auto) 0.8, Basophils (%) (Auto) 0.4, Neutrophils # (Auto) 2.1, Lymphocytes # (Auto) 0.1 L, Monocytes # (Auto) 0.2, Eosinophils # (Auto) 0.0, Basophils # (Auto) 0.0, Calcium Level 7.4 L, Aspartate Amino Transf (AST/SGOT) 49 H, Alanine Aminotransferase (ALT/SGPT) 42, Alkaline Phosphatase 82, Total Bilirubin 0.3, Total Protein 4.6 L, Albumin 1.9 L 12/30/18 22:49 Calcium Level 7.6 L 12/31/18 03:03 Red Blood Count 2.79 L, Mean Corpuscular Volume 88.2, Mean Corpuscular Hemoglobin 27.2, Mean Corpuscular Hemoglobin Concent 30.9 L, Red Cell Distribution Width 24.3 H, Calcium Level 7.4 L, Aspartate Amino Transf (AST/SGOT) 42 H, Alanine Aminotransferase (ALT/SGPT) 50, Alkaline Phosphatase 82, Total Bilirubin 0.4, Total Protein 4.7 L, Albumin 1.9 L Microbiology Microbiology 12/30/18 Blood Culture, Received Pending ELVIRA MURILLO MD December 31, 2018 10:54
--- NOTE | 2018-12-31 11:00 | HPE ---
DATE OF ADMISSION: 12/30/2018 DATE OF DISCHARGE/TRANSFER: 12/30/2018 Discharge from acute rehabilitation unit (ARU) and admission to progressive care unit (PCU). ATTENDING PHYSICIAN: Dr. Edy Mcintosh This s a very pleasant 73-year-old gentleman who has had multiple admissions back and forth between acute rehabilitation unit (ARU) as well as acute care over the last 7 days. Patient was admitted to [facility] on 12/25/2018. He presented to the emergency department (ED) with a fever of 102 at home. Patient was found to have endocarditis, which proved positive for Streptococcus infantarius. Patient was placed on ceftriaxone 2 grams every 24 hours and he is to finished that course on 01/05/2019. Patient was discharged to acute rehabilitation unit on 12/28/2018 as he was stable and deemed appropriate for continuous rehabilitation needs for debility. Patient has had increased use of oxygen. He is a non-oxygen dependent chronic obstructive pulmonary disease (COPD) patient and was found to have difficulty maintaining his oxygen saturations on 6-10 liters via nasal cannula. Chest x-ray was completed today and showed congestive heart failure (CHF) pattern with pulmonary edema and he was give Lasix 60 mg IV times one. A Gallo catheter was placed and patient diuresed 800 mL per nursing report. It was deemed appropriate to transition patient to a unit with critical care monitoring. PAST MEDICAL HISTORY: Significant for: 1. Most recently bacterial endocarditis. 2. Transitional cell carcinoma status post right nephroureterectomy in 2001. 3. Diffuse large B cell lymphoma in 2015 treated with chemotherapy and radiation. 4. IgG lambda multiple myeloma with thoracic and lumbar spine plasma cytoma and pathologic fracture of the right hip treated with chemotherapy. 5. Chronic kidney disease stage III followed by Dr. Gonzales Adams. 6. Hypertension. 7. Gout. 8. History of deep venous thrombosis. 9 Third degree AV block with pacemaker insertion November 2015. 10. Atrial flutter. PAST SURGICAL HISTORY: Significant for: 1. Laminectomy in 2012. 2. Transurethral resection of the prostate (TURP). 3. Permanent pacemaker placed November 2017. 4. Right orchiectomy January 2016. 5. Right ureteral nephrectomy 2001. 6. Multiple bone marrow biopsies. FAMILY HISTORY: Noncontributory. SOCIAL HISTORY: Former smoker. Denies drug or alcohol use. Lives at home with his . REVIEW OF SYSTEMS: Patient does complain of significant dyspnea with exertion as well as hypoxia on exertion. Today he was into the 70s with 6 liters of oxygen via nasal cannula. He does admit to dyspnea. Denies chest pain. Denies blurred vision. Denies dizziness. Does admit to fatigue and lethargy. Does admit to generalized weakness and debility. The rest of the 10-point review of systems is negative, other than previously stated. Most recent labs show potassium level of 3.4, creatinine, which has been climbing over the last several days of 2.0. Calcium 7.9, magnesium 1.6, and proBNP of 2270. Most recent CBC on 12/29/2018 showed a white blood cell count of 1.8, hemoglobin and hematocrit 8 and 24, platelets are low at 60. Repeat CBC is pending currently. PHYSICAL EXAMINATION: On physical exam, patient is pale in no acute distress. Mildly tachypneic, positive dyspnea with conversation. NECK: Supple without any visible jugular venous distention (JVD). CARDIOVASCULAR: Heart regular rhythm are regular. PULMONARY: Lungs are diminished bibasilar. ABDOMEN: Soft and nontender. He has an obese abdomen. No organomegaly is appreciated. EXTREMITIES: Bilateral lower extremities show positive pedal pulses. ASSESSMENT/PLAN: 1. Bacterial endocarditis secondary to Streptococcus infantarius: Patient will continue ceftriaxone 2 grams IV every 24 hours until 01/05/2019 to complete his course. 2. Congestive heart failure with pulmonary edema: Patient has already received Lasix 50 mg times one IV and is subsequently continuing with the Lasix IV drip as ordered by nephrology. 3. Chronic obstructive pulmonary disease (COPD): Patient will continue his DuoNebs every 6 hours as well as continuing with his Spiriva. We will continue to oxygenate patient to keep his saturations above 90%. 4. Hypomagnesemia: Patient was replaced with oral magnesium on the acute rehabilitation unit. He may require magnesium runs pending his results with diuresis. 5. Hypokalemia: Will need to monitor his potassium levels in conjunction with his Lasix IV drip. 6. Third degree AV heart block. 7. Hypertension. 8. Obstructive sleep apnea: Patient will continue CPAP at hour of sleep. 9. Chronic kidney disease: Patient is status post nephrology consult. She will be managing and following patient in conjunction with hospitalist services as well as infectious disease. 10. Multiple myeloma: Patient follows with Dr. Rice. We will continue his acyclovir while he is inpatient. 11. Gastroesophageal reflux disease (GERD): Patient will continue his proton pump inhibitor. 12. Deep venous thrombosis (DVT): Patient will continue his Xarelto 5 mg by mouth twice a day. The case was discussed with Dr. Edy Mcintosh and he is in agreeable to plan of care as well as admission to progressive care unit (PCU). Patient will be placed on telemetry, stat Transesophageal echocardiogram (ISMAEL) has been ordered to rule out any worsening valvular disorders. Patient is agreeable to plan of care. edited: 01/09/2019 0807 tkf MYLES
--- NOTE | 2018-12-31 14:15 | IPN ---
DATE: 12/31/2018 Mr. Maza is seen this morning on his bedside. His son is present in the room. The patient reports that his dyspnea is improving and he denies any nausea or vomiting. He has no fever or chills. He has a known history of anemia with MDS and chronic kidney disease with baseline creatinine of about 1.8 mg/dl. PHYSICAL EXAMINATION: Temperature 97.9 degrees Fahrenheit, heart rate 75 per minute and respiratory rate 24 per minute. Blood pressure 133/70 mmHg and oxygen saturation up to 96%, but he is requiring 5-6 liters of oxygen. Intake and output records from yesterday are probably inaccurate. He was negative fluid balance of about 1 liter. His head is atraumatic. Neck veins are mildly distended. There is no oral thrush or ulcers. He is using oxygen via nasal cannula. Heart sounds are irregular in rhythm. Lungs with diminished breath sounds and bilateral rales. Abdomen soft and nontender and bowel sounds are present. Extremities have no cyanosis or clubbing. Neurologically he is awake, alert and at his baseline mentation. PROBLEMS: 1. Congestive heart failure and hypoxemia. The patient is still on a high amount of oxygen supplementation, but he is not on oxygen at home. We will continue to diurese him and keep him in negative fluid balance. His chest x-ray already showed some improvement. 2. Acute kidney injury superimposed on chronic kidney disease. Kidney function is very close to baseline and he did have mild acute renal failure which has already improved. 3. Protein calorie malnutrition. His total protein today is 4.7 and albumin is only 1.9. This is probably also contributing to his pulmonary edema and he will need to improve his protein intake. 4. Anemia. Patient has anemia of chronic disease with MDS. He is likely to require transfusion. Will wait for his volume status to improve before we consider transfusion.
[2018-12-31] MEDS: FUROSEMIDE injection 250 MG in D5W 225 ML IV SCH (16:52)
[2018-12-31] MEDS: cefTRIAXone SOD 2 GM in D5W MINI-BAG PLUS 50 ML IV SCH (16:55)
[2018-12-31] MEDS: ASPIRIN 81 MG ENTERIC TAB PO SCH (20:18)
[2018-12-31] MEDS: ATORVASTATIN 20 MG TAB PO SCH (20:18)
[2018-12-31] MEDS: TAMSULOSIN 0.4 MG CAP PO SCH (20:19)
[2019-01-01 04:00] VITALS: BP 126/64
[2019-01-01 06:42] LABS: HEMATOCRIT 24.1 % (42.0-52.0); HEMOGLOBIN 7.6 g/dl (13.5-17.5); MEAN CORPUSCULAR HEMOGLOBIN 28.1 pg (27.0-33.0); MEAN CORPUSCULAR HGB CONC 31.5 g/dl (32.0-36.5); MEAN CORPUSCULAR VOLUME 89.3 fl (80.0-96.0); WHITE BLOOD COUNT 2.8 10^3/uL (4.0-10.0)
[2019-01-01 06:43] LABS: PLATELET COUNT, AUTOMATED 64 10^3/uL (150-450)
[2019-01-01 07:05] LABS: CALCIUM LEVEL 7.5 MG/DL (8.8-10.2); CREATININE FOR GFR 1.89 MG/DL (0.70-1.30); GLOMERULAR FILTRATION RATE 37.5 (>42); MAGNESIUM LEVEL 1.9 MG/DL (1.8-2.4); POTASSIUM SERUM 3.4 MEQ/L (3.5-5.1)
[2019-01-01] MEDS ORDERED: POTASSIUM CHLORIDE 10 MEQ SR TABLET PO ONE (07:15)
[2019-01-01 08:00] VITALS: BP 109/65
[2019-01-01] MEDS: ACYCLOVIR 200 MG CAPSULE PO SCH ×2 (08:21→21:02)
[2019-01-01] MEDS: SERTRALINE HCL 50 MG TAB PO SCH (08:22)
[2019-01-01] MEDS: APIXABAN 5 MG TAB (ELIQUIS) PO SCH ×2 (08:22→21:00)
[2019-01-01] MEDS: ALLOPURINOL 300 MG TAB PO SCH (08:22)
[2019-01-01] MEDS: BOUDREAUX'S BUTT PASTE TOP SCH ×3 (08:22→21:09)
[2019-01-01] MEDS: FAMOTIDINE 20 MG TAB PO SCH (08:22)
[2019-01-01] MEDS: METOPROLOL SUCC *XL* 25MG TAB (TopROL *XL*) PO SCH ×2 (08:22→21:01)
[2019-01-01] MEDS: DOCUSATE SODIUM 100 MG CAP PO SCH ×2 (09:00→21:00)
[2019-01-01] MEDS: POTASSIUM CHLORIDE 10 MEQ SR TABLET PO SCH ×4 (09:00→21:01)
--- NOTE | 2019-01-01 11:50 | IPNPDOC ---
Date Seen The patient was seen on 01/01/19. Progress Note SUBJECTIVE: Patient not short of breath with oxygen. Patient eating breakfast without difficult. Continue to diurese and monitor electrolytes and replace as needed. -1050 output. Cardiology plans to do ISMAEL on Wednesday. OBJECTIVE PHYSICAL EXAMINATION: VITAL SIGNS: Please see below GENERAL APPEARANCE: Resting comfortably, HEENT: Normocephalic, PERRLA, Mucous moist, CARDIOVASCULAR: S1,S2, pulse present, regularly, regular, left-sided port for IV access LUNGS: Equal air entry b/l, no wheezes or crackle ABDOMEN: Soft, BS present, no tenderness, no guarding EXTREMITIES: B/L no edema, capillary refill present SKIN: Warm, No fever NEUROLOGICAL: Cranial nerves grossly intact PSYCHIATRIC: Normal mood and affect for current situation LABORATORY DATA, IMAGING STUDIES, MICROBIOLOGY: Please see below. ]ASSESSMENT/PLAN: 73-year-old gentleman with PMH of a. flutter and third degree AV block with pacemaker, multiple myeloma, DVT, COPD, multiple myeloma, and CKD with recent diagnosis of acute bacterial endocarditis with Streptococcus infantarius bacteremia presents to [facility] ER due to fever of 102F at home, weakness, and dehydration and admitted and treated for Febrile neutropenia 2/2 Acute bacterial endocarditis with Streptococcus infantarius bacteremia. Patient was treated and improved to point the patient was transferred to ARU 12/28/18. Patient had progressive shortness of breath and thus require transfer to inpatient unit. He was found to have acute decompensated CHF and was started on lasix drip, blood culture obtained: NGD, and cardiology consulted w . Cardiology's ISMAEL for further evaluation. Acute decompensated CHF -Lasix drip -Telemetry, likely monitoring -I and O's, Sabino -Cardiology Dr. Mercado: ISMAEL -Blood culture: NGD Hx of Febrile neutropenia 2/2 Acute bacterial endocarditis with Streptococcus infantarius bacteremia -s/p recent hospitalization from 12/04-12/21/18 at which time a ISMAEL done on 12/13 was found to be positive for vegetations after the patient was noted to bacteremic from Streptococcus infantarius -ID Dr. Lay:Cont Ceftriaxone 2g q24h until 01/05 Pancytopenia 2/2 Hx of Chemotherapy -Follows with Dr. Rice of Oncology -consider Neupogen if his ANC drops <1500 -No indication for packed red blood cell or platelet transfusion at this time A/CKD Stage III, stable -Serum Cr at baseline -on lasix A flutter / Hx of Pacemaker -Continue with metoprolol, Eliquis, asa Multiple Myeloma -Patient's treatment regimen includes Revlimid and Daratumumab, with last dose 3 weeks ago -c/w Acyclovir for prophylaxis -Follow-up with Dr. Rice as outpatient Hx of DVT -On Eliquis COPD -Continue meds as ordered Gout -Allopurinol DLP -Atorvastatin Depression -Sertraline BPH -Tamsulosin GERD -Protonix. DVT prop as above Patient wishes to be DNR/DNI. VS, I&O, 24H, Fishbone Vital Signs/I&O Vital Signs Date Time Temp Pulse Resp B/P (MAP) Pulse Ox O2 Delivery O2 Flow Rate FiO2 01/01/19 08:22 74 109/65 01/01/19 08:00 98.1 95 95 01/01/19 07:59 5.0 12/31/18 04:00 96 I&O- Last 24 Hours up to 6 AM 01/01/19 06:00 Intake Total 1225 ml Output Total 2150 ml Balance -925 ml Laboratory Data 24H LABS Laboratory Tests 2 01/01/19 06:25: Nucleated Red Blood Cells % (auto) 2.5H, Immature Platelet Fraction 4.1, Anion Gap 11, Glomerular Filtration Rate 37.5L, Blood Urea Nitrogen 39H, Creatinine 1.89H, Sodium Level 141, Potassium Level 3.4L, Chloride Level 110H, Carbon Dioxide Level 20L, Calcium Level 7.5L, Magnesium Level 1.9 CBC/BMP Laboratory Tests 01/01/19 06:25 Red Blood Count 2.70 L, Mean Corpuscular Volume 89.3, Mean Corpuscular Hemoglobin 28.1, Mean Corpuscular Hemoglobin Concent 31.5 L, Red Cell Distribution Width 24.7 H, Calcium Level 7.5 L Microbiology Microbiology 12/30/18 Blood Culture - Preliminary, Resulted No growth after 24 hours . All specim... ELVIRA MURILLO MD January 01, 2019 11:50
[2019-01-01 12:00] VITALS: BP 122/58
--- NOTE | 2019-01-01 14:38 | IPN ---
DATE: 01/01/2019 Mr. Maza is seen this morning on his bedside. He is laying in the bed without any acute distress. He is using oxygen via nasal cannula. He reports some improvement in his dyspnea. The patient denies any fever, chills, nausea or vomiting. PHYSICAL EXAMINATION Temperature 98.1 degrees Fahrenheit, heart rate 72 per minute and respiratory rate 18 per minute. Blood pressure 109/65 mmHg and oxygen saturation 92% on 5 liters oxygen. The patient is using oxygen via nasal cannula. His head is atraumatic. Neck is supple and JVD difficult to be assessed. Heart sounds are regular and lungs with few basilar rales and diminished breath sounds at bases. Abdomen is soft and nontender and bowel sounds are present. Extremities have no cyanosis or clubbing. Neurologically he is awake and at his baseline mentation. Today's labs show WBC count 2.8, hemoglobin 7.6 and hematocrit 24.1. Platelets 64,000. Sodium 141, potassium 3.4, CO2 27, BUN 39 and creatinine 1.89. PROBLEMS: 1. Acute renal failure superimposed on chronic kidney disease. No trend but mild fluctuations in BUN and creatinine are noted over last few days while he is being diuresed. At this point, we will continue to monitor his kidney function on daily basis. 2. Hypokalemia. This is related to diuresis and the patient will receive potassium chloride 20 mEq t.i.d. in addition to one dose that he has already received this morning. Electrolytes will be checked again tomorrow morning. 3. Hypoxemia with congestive heart failure slightly improved but still requiring 5 liters of oxygen. Clinically his volume status is very difficult to be assessed. We will get a repeat chest x-ray if needed. At this point he is being diuresed with IV Lasix drip which should be continued. No changes are being made today.
[2019-01-01 16:00] VITALS: BP 121/59
[2019-01-01] MEDS: cefTRIAXone SOD 2 GM in D5W MINI-BAG PLUS 50 ML IV SCH (17:13)
[2019-01-01] MEDS: FUROSEMIDE injection 250 MG in D5W 225 ML IV SCH (17:13)
[2019-01-01 20:00] VITALS: BP 102/68
[2019-01-01] MEDS: TAMSULOSIN 0.4 MG CAP PO SCH (21:01)
[2019-01-01] MEDS: ATORVASTATIN 20 MG TAB PO SCH (21:02)
[2019-01-01] MEDS: ASPIRIN 81 MG ENTERIC TAB PO SCH (21:02)
[2019-01-01 23:59] VITALS: BP 108/58
[2019-01-02] VITALS (7 sets, daily range): BP systolic 86–122; BP diastolic 52–80
[2019-01-02] MEDS: DOCUSATE SODIUM 100 MG CAP PO SCH ×2 (09:00→21:22)
[2019-01-02] MEDS: METOPROLOL SUCC *XL* 25MG TAB (TopROL *XL*) PO SCH ×2 (09:16→21:21)
[2019-01-02] MEDS: FAMOTIDINE 20 MG TAB PO SCH (09:17)
[2019-01-02] MEDS: SERTRALINE HCL 50 MG TAB PO SCH (09:17)
[2019-01-02] MEDS: APIXABAN 5 MG TAB (ELIQUIS) PO SCH ×2 (09:17→21:21)
[2019-01-02] MEDS: ACYCLOVIR 200 MG CAPSULE PO SCH ×2 (09:17→21:21)
[2019-01-02] MEDS: ALLOPURINOL 300 MG TAB PO SCH (09:18)
[2019-01-02] MEDS: BOUDREAUX'S BUTT PASTE TOP SCH ×3 (09:20→21:22)
--- NOTE | 2019-01-02 10:53 | IPNPDOC ---
Date Seen The patient was seen on 01/02/19. Progress Note SUBJECTIVE: Patient not short of breath with oxygen. Continue to diurese and monitor electrolytes and replace as needed. -645output. no complaints this morning. Was planned for ISMAEL today but changed to TTE. Dr. Lobato cardiology read. OBJECTIVE PHYSICAL EXAMINATION: VITAL SIGNS: Please see below GENERAL APPEARANCE: Resting comfortably, HEENT: Normocephalic, PERRLA, Mucous moist, CARDIOVASCULAR: S1,S2, pulse present, regularly, regular, left-sided port for IV access LUNGS: Equal air entry b/l, no wheezes or crackle ABDOMEN: Soft, BS present, no tenderness, no guarding EXTREMITIES: B/L no edema, capillary refill present SKIN: Warm, No fever NEUROLOGICAL: Cranial nerves grossly intact PSYCHIATRIC: Normal mood and affect for current situation LABORATORY DATA, IMAGING STUDIES, MICROBIOLOGY: Please see below. ]ASSESSMENT/PLAN: 73-year-old gentleman with PMH of a. flutter and third degree AV block with pa cemaker, multiple myeloma, DVT, COPD, multiple myeloma, and CKD with recent diagnosis of acute bacterial endocarditis with Streptococcus infantarius bacteremia presents to [facility] ER due to fever of 102F at home, weakness, and dehydration and admitted and treated for Febrile neutropenia 2/2 Acute bacterial endocarditis with Streptococcus infantarius bacteremia. Patient was treated and improved to point the patient was transferred to ARU 12/28/18. Patient had progressive shortness of breath and thus require transfer to inpatient unit. He was found to have acute decompensated dCHF and was started on lasix drip, blood culture obtained: NGD, and cardiology consulted w . Cardiology's ISMAEL for further evaluation. Acute decompensated CHF, diastolic -Echo 12/13/18:anterior mitral leaflet vegetation,mod , mil-mod AR, nml tricuspid, mod TR, EF 60%,very small pericardial effusion, Mild atheroma involving the distal aortic arch and descending thoracic aorta -Lasix drip due to poor renal function -Telemetry monitoring -I and O'sSabino -Cardiology , for repeat TTE. -Blood culture: NGD Hx of Febrile neutropenia 2/2 Acute bacterial endocarditis with Streptococcus infantarius bacteremia -s/p recent hospitalization from 12/04-12/21/18 at which time a ISMAEL done on 12/13 was found to be positive for vegetations after the patient was noted to bacteremic from Streptococcus infantarius -ID Dr. Lay:Cont Ceftriaxone 2g q24h until 01/05 Pancytopenia 2/2 Hx of Chemotherapy -Follows with Dr. Rice of Oncology -consider Neupogen if his ANC drops <1500 -No indication for packed red blood cell or platelet transfusion at this time A/CKD Stage III, stable -Serum Cr at baseline -on lasix A flutter / Hx of Pacemaker -Continue with metoprolol, Eliquis, asa Multiple Myeloma -Patient's treatment regimen includes Revlimid and Daratumumab, with last dose 3 weeks ago -c/w Acyclovir for prophylaxis -Follow-up with Dr. Rice as outpatient Hx of DVT -On Eliquis COPD -Continue meds as ordered Gout -Allopurinol DLP -Atorvastatin Depression -Sertraline BPH -Tamsulosin GERD -Protonix. DVT prop as above Patient wishes to be DNR/DNI. VS, I&O, 24H, Fishbone Vital Signs/I&O Vital Signs Date Time Temp Pulse Resp B/P (MAP) Pulse Ox O2 Delivery O2 Flow Rate FiO2 01/02/19 09:16 76 102/63 01/02/19 08:00 5.0 01/02/19 08:00 97.8 20 90 12/31/18 04:00 96 I&O- Last 24 Hours up to 6 AM 01/02/19 06:00 Intake Total 1250 ml Output Total 1300 ml Balance -50 ml Laboratory Data Microbiology Microbiology 12/30/18 Blood Culture - Preliminary, Resulted No Growth after 48 hours. All Specime... ELVIRA MURILLO MD January 02, 2019 10:53
--- NOTE | 2019-01-02 11:01 | NUR ---
Based on the results of the bedside swallowing assessment ST recommends pt continue with a mechanical soft diet and regular liquids. Pt is at risk for aspiration especially near the end of meals as he fatigues, displays SOB, and decreased safety awareness while eating/drinking. ST recommends dysphagia therapy to implement energy conservation strategies. Addendum: 01/02/19 at 1104 by VENKATA TREJO Amended: Links added.
[2019-01-02 11:06] LABS: HEMATOCRIT 25.8 % (42.0-52.0); HEMOGLOBIN 7.9 g/dl (13.5-17.5); MEAN CORPUSCULAR HEMOGLOBIN 27.4 pg (27.0-33.0); MEAN CORPUSCULAR HGB CONC 30.6 g/dl (32.0-36.5); MEAN CORPUSCULAR VOLUME 89.6 fl (80.0-96.0); RED BLOOD COUNT 2.88 10^6/uL (4.30-6.10); WHITE BLOOD COUNT 2.9 10^3/uL (4.0-10.0)
[2019-01-02 11:14] LABS: PLATELET COUNT, AUTOMATED 73 10^3/uL (150-450)
[2019-01-02 11:32] LABS: CALCIUM LEVEL 7.6 MG/DL (8.8-10.2); CREATININE FOR GFR 2.14 MG/DL (0.70-1.30); GLOMERULAR FILTRATION RATE 32.5 (>42); MAGNESIUM LEVEL 1.7 MG/DL (1.8-2.4); POTASSIUM SERUM 3.7 MEQ/L (3.5-5.1)
[2019-01-02] MEDS: POTASSIUM CHLORIDE 10 MEQ SR TABLET PO SCH ×2 (12:11→21:21)
--- NOTE | 2019-01-02 12:20 | IPN ---
DATE OF VISIT: 01/02/2019 Mr. Maza is seen this morning on his bedside. He is still feeling weak and short of breath. He remains on intravenous (IV) Lasix drip and still requiring 5 liters of oxygen via nasal cannula. He denies any fever or chills. He is diuresing very well and responding to IV Lasix drip. On physical exam, temperature 97.8 degrees Fahrenheit, heart rate 76 per minute and respiratory rate 20 per minute. Blood pressure 102/63 mmHg and oxygen saturation 90% on 5 liters oxygen. Intake and output records from yesterday are negative by 645 mL. His head is atraumatic. Neck veins are difficult to be assessed. There is no oral thrush or ulcers. Heart sounds are irregular in rhythm. Lungs have diminished breath sounds at bases bilaterally. Abdomen soft and nontender and bowel sounds are normal. Extremities have no cyanosis or clubbing. Neurologically, he is awake and without a focal deficit. Today's labs show sodium 139, potassium 3.7, CO2 19, BUN 47 and creatinine 2.14. WBC count is 2.9, hemoglobin 7.9 and hematocrit 25.8. PROBLEMS: 1. Hypoxemia most likely related to congestive heart failure. He has been diuresed, but clinically not improved a hold lot. We will continue with IV Lasix drip for now and monitor his intake and output. 2. Hypokalemia. His potassium level has corrected and we will cut back on the potassium supplement to 20 mEq twice a day. Electrolytes will be checked again tomorrow morning. 3. Acute renal failure superimposed on chronic kidney disease. Kidney function is slightly worse today, probably related to negative fluid balance. He was negative only by about 650 mL and still quite hypoxic. Will get a chest CT scan today without IV contrast and continue with diuretic drip for now.
--- NOTE | 2019-01-02 14:41 | REP ---
CT chest without contrast: History: Hypoxemia. Comparison chest CT study December 30, 2018. Comparison study is also reviewed from November 14, 2018. CT findings: Digital preliminary manager reliability view demonstrates an interstitial infiltrate in the right upper lobe and left perihilar region. [id number] catheter and pacemaker leads are again seen. Axial CT images demonstrate emphysematous changes in the upper lobes which appear to be more pronounced than they were November 14, 2018. Interstitial infiltrates are seen in the upper lobes bilaterally, right greater than left similar to the most recent study of December 30, 2018 but new when compared with the November 14, 2018 prior study. There is fibroatelectatic change in the right lower lobe essentially unchanged. Minimal linear fibrosis is seen in the left base. No new consolidation is seen. No pleural or pericardial effusion is seen. There are granulomatous lymph node residuals in the right hilus and subcarinal region. Vascular calcifications noted. No adrenal lesion is seen. There are gallstones noted in the upper abdomen. Impression: Fairly extensive bilateral interstitial infiltrates essentially unchanged from January 08, 2019 but new from November 14, 2018. No new infiltrate seen. No pleural effusion noted. Fibroatelectatic changes right lower lobe unchanged. Electronically Signed by Alfredito Gregorio MD 01/02/2019 07:32 P
[2019-01-02 15:48] LABS: C REACTIVE PROTEIN QUANTITATIV 10.9 MG/DL (0.00-0.30)
[2019-01-02] MEDS: cefTRIAXone SOD 2 GM in D5W MINI-BAG PLUS 50 ML IV SCH (16:50)
[2019-01-02] MEDS: FUROSEMIDE injection 250 MG in D5W 225 ML IV SCH (16:50)
--- NOTE | 2019-01-02 17:35 | IPN ---
DATE: 01/02/2019 Camilo is doing better compared to last week. He denies any nausea, vomiting. He has diarrhea since on antibiotics. No fever or chills. Congestive heart failure has improved. Yesterday he had three bowel movements. He has lost 4 kg since December 30. Intake and output negative fluid balance of 1055 on 12/30 1050 on 12/31 and 645 yesterday. Lower extremity edema has improved. LABORATORY DATA: White count is 2.9, hemoglobin 7.9, hematocrit 25.8, platelet 73. Sodium 139, potassium 3.7, chloride 110, bicarb at 19, BUN 47, creatinine 2.14 which has increased from 1.8 with diuresis, glucose 151, calcium 7.6, phosphorus 3, magnesium 1.7, CRP 10.9. Blood cultures were negative on 12/30 two sets 1425 and the other at 1540. Blood culture on 12/25 was negative, 12/03 blood cultures were positive for Streptococcus infantarius. PHYSICAL EXAMINATION: Temperature is 97.5, pulse 73, respirations 18, blood pressure 109/63, O2 sat 96% on 5 liters nasal cannula. Heart: Normal S1-S2 distant. Lungs: Diminished breath sounds at bases but clear. No wheezes, rales or rhonchi. Abdomen: Morbidly obese, soft, nontender. Extremities: +1 ankle edema. IMPRESSION: 1. Congestive heart failure with hypoxemia improving, O2 sat has decreased his O2 requirement to 5 liters. The patient on IV Lasix, creatinine has increased today. 2. Acute renal failure on chronic kidney disease follows up with Dr. Adams. 3. Endocarditis due to Streptococcus infantarius. Patient has been on IV Rocephin and repeat blood cultures three sets have been negative. He will have a follow-up transthoracic echocardiogram to make sure mitral regurgitation has not worsened. There is no dehiscence or abscess. The patient will have transthoracic echocardiogram done tonight or tomorrow to be read by Dr. Lobato who is his quality improvement consultant if worsening congestive heart failure please consult cardiology. History of pacemaker insertion on the right side follows up by Dr. Lobato for the past year and half. PLAN: Continue IV Rocephin end of therapy would be January 05, transthoracic echocardiogram the next 24 hours. Will continue to monitor.
[2019-01-02] MEDS: ATORVASTATIN 20 MG TAB PO SCH (21:20)
[2019-01-02] MEDS: TAMSULOSIN 0.4 MG CAP PO SCH (21:21)
[2019-01-02] MEDS: ASPIRIN 81 MG ENTERIC TAB PO SCH (21:22)
[2019-01-03 04:00] VITALS: BP 103/66
[2019-01-03 06:41] LABS: HEMATOCRIT 23.8 % (42.0-52.0); HEMOGLOBIN 7.4 g/dl (13.5-17.5); MEAN CORPUSCULAR HEMOGLOBIN 27.7 pg (27.0-33.0); MEAN CORPUSCULAR HGB CONC 31.1 g/dl (32.0-36.5); MEAN CORPUSCULAR VOLUME 89.1 fl (80.0-96.0); RED BLOOD COUNT 2.67 10^6/uL (4.30-6.10); WHITE BLOOD COUNT 3.1 10^3/uL (4.0-10.0)
[2019-01-03 06:54] LABS: PLATELET COUNT, AUTOMATED 66 10^3/uL (150-450)
[2019-01-03 07:13] LABS: CALCIUM LEVEL 7.5 MG/DL (8.8-10.2); CREATININE FOR GFR 1.96 MG/DL (0.70-1.30); POTASSIUM SERUM 3.7 MEQ/L (3.5-5.1)
[2019-01-03 08:00] VITALS: BP 104/64
[2019-01-03] MEDS: DOCUSATE SODIUM 100 MG CAP PO SCH ×2 (10:00→21:00)
[2019-01-03] MEDS: METOPROLOL SUCC *XL* 25MG TAB (TopROL *XL*) PO SCH ×2 (10:00→21:00)
[2019-01-03] MEDS: SERTRALINE HCL 50 MG TAB PO SCH (10:00)
[2019-01-03] MEDS: ALLOPURINOL 300 MG TAB PO SCH (10:00)
[2019-01-03] MEDS: BOUDREAUX'S BUTT PASTE TOP SCH ×3 (10:01→21:09)
[2019-01-03] MEDS: POTASSIUM CHLORIDE 10 MEQ SR TABLET PO SCH ×2 (10:01→21:03)
[2019-01-03] MEDS: APIXABAN 5 MG TAB (ELIQUIS) PO SCH ×2 (10:01→21:02)
[2019-01-03] MEDS: ACYCLOVIR 200 MG CAPSULE PO SCH ×2 (10:01→21:02)
[2019-01-03] MEDS: FAMOTIDINE 20 MG TAB PO SCH (10:02)
[2019-01-03 12:00] VITALS: BP 104/66
[2019-01-03 16:00] VITALS: BP 93/67
[2019-01-03] MEDS: cefTRIAXone SOD 2 GM in D5W MINI-BAG PLUS 50 ML IV SCH (16:20)
[2019-01-03] MEDS: FUROSEMIDE injection 250 MG in D5W 225 ML IV SCH (16:21)
--- NOTE | 2019-01-03 19:14 | IPNPDOC ---
Date Seen The patient was seen on 01/03/19. Progress Note SUBJECTIVE: Patient reported feeling fine this morning denying any particular complaints including shortness of breath. Still on 5 L nasal cannula. Blood pressure has been on the lower in the 90 systolic. Currently still on Lasix drip at 5. OBJECTIVE PHYSICAL EXAMINATION: VITAL SIGNS: Please see below. General: No acute distress, Alert Eyes: Normal sclera, EOMI, SCOUT HENT: Atraumatic, neck supple, moist mucous membranes Cardiovascular: Normal rate, normal rhythm. Pulmonary: Clear to auscultation b/l, no wheezing GI: Soft, nontender, nondistended Skin: Warm and dry Neuro: CN grossly intact. No focal deficits. Strengths equal b/l. Psych: oriented x 3 LABORATORY DATA, IMAGING STUDIES, MICROBIOLOGY: Please see below. DVT prophylaxis ordered?: Eliqumary ann ASSESSMENT AND PLAN: 1. Acute decompensated diastolic HF w/ recent history of endocarditis - On Lasix drip currently with good diuresis but BP had been slightly lower in 90s. - Monitor BP, may need to decrease diuresis. Monitor I/O. - Repeat TTE w/ Dr. Lobato. Consult placed for cardiology. 2. 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 - Renal and ID on board. - c/w abx to complete on 01/05. - f/u official TTE report. 3. Pancytopenia in setting of chemotherapy for MM - follows with Dr. Rice. - On Revlimid and Daratumumab, last dose 3 weeks prior. - c/w Acyclovir for ppx - Consider neupogen if ANC <1500? 4. DUSTIN on CKD - likely 2/2 diuresis. Renal following. - c/w lasix drip for now. 5. A flutter - c/w home meds. 6. hx DVT on Eliquis Other chronic conditions: COPD, Gout, HLD, Depression, BPH- c/w home meds DNR A-FIB/CHADSVASC A-FIB History Current/History of A-Fib/PAF?: Yes Current Oral Anticoagulant The: Yes VS, I&O, 24H, Fishbone Vital Signs/I&O Vital Signs Date Time Temp Pulse Resp B/P (MAP) Pulse Ox O2 Delivery O2 Flow Rate FiO2 01/03/19 16:00 97.3 75 18 93/67 (76) 95 5.0 12/31/18 04:00 96 I&O- Last 24 Hours up to 6 AM 01/03/19 06:00 Intake Total 870 ml Output Total 2025 ml Balance -1155 ml Laboratory Data 24H LABS Laboratory Tests 2 01/03/19 06:23: Nucleated Red Blood Cells % (auto) 2.2H, Anion Gap 9, Glomerular Filtration Rate 36.0L, Blood Urea Nitrogen 48H, Creatinine 1.96H, Sodium Level 142, Potassium Level 3.7, Chloride Level 111H, Carbon Dioxide Level 22, Calcium Level 7.5L, Magnesium Level 2.0 CBC/BMP Laboratory Tests 01/03/19 06:23 Red Blood Count 2.67 L, Mean Corpuscular Volume 89.1, Mean Corpuscular Hemoglobin 27.7, Mean Corpuscular Hemoglobin Concent 31.1 L, Red Cell Distribution Width 24.3 H, Calcium Level 7.5 L Microbiology Microbiology 12/30/18 Blood Culture - Preliminary, Resulted No Growth after 72 hours. All specime... JESSICA ENGLE MD January 03, 2019 19:14
[2019-01-03 20:00] VITALS: BP 96/62
[2019-01-03] MEDS: ASPIRIN 81 MG ENTERIC TAB PO SCH (21:02)
[2019-01-03] MEDS: TAMSULOSIN 0.4 MG CAP PO SCH (21:02)
[2019-01-03] MEDS: ATORVASTATIN 20 MG TAB PO SCH (21:02)
--- NOTE | 2019-01-03 21:17 | ECHO ---
DATE OF PROCEDURE: 01/02/2019 REFERRING PHYSICIAN: Amaury Casiano DO INDICATION: Endocarditis. HEIGHT: 183 cm WEIGHT: 105 kg DIMENSIONS: IVS: 1.2 LV: 4.6 LVPW: 1.2 LA: 3.2 Aorta: 3.5 IVC: 1.7 Mitral E wave velocity: 55, A wave: 77. E prime septal: 6.7, E prime lateral: 7.8 FINDINGS The study is of fair technical quality with somewhat limited visualization. The patient is in sinus rhythm. Left ventricle is of normal size and normal systolic function, I estimate left ventricular ejection fraction (LVEF) 60-65%. No segmental wall motion abnormalities are appreciated. Right ventricle also appears to be of normal size and systolic function. There are echo artifacts in right-sided heart chambers consistent with pacemaker electrodes. Both atria appear at least mildly enlarged. Aortic valve is tricuspid. It is mildly sclerotic. I cannot completely rule out presence of vegetations on one of the leaflets but it is not very convincing. There are degenerative abnormalities of mitral valve with some mitral annular calcifications, but there is a small mobile echodensity adjacent to anterior mitral leaflet consistent with vegetation in appropriate clinical settings. Tricuspid valve was poorly seen, but grossly appears normal. Pulmonic valve also appears normal. No pericardial effusion is noted. Inferior vena cava is normal size. Aortic root appears normal. Aortic arch and abdominal aorta were not well seen. Doppler interrogation of aortic valve reveals no stenosis and mild insufficiency. There is mild mitral insufficiency. There is also mild tricuspid insufficiency. Calculated pulmonary artery pressure is in 30s corresponding to mild pulmonary hypertension. Mitral inflow pattern and tissue Doppler imaging of mitral annulus reveal grade 1 diastolic dysfunction. CONCLUSIONS: 1. Study is of acceptable technical quality. 2. Mild left ventricular hypertrophy (LVH) with preserved left ventricular systolic function, grade 1 diastolic dysfunction. 3. Sclerosis of aortic valve with no stenosis and mild insufficiency. Cannot completely rule out presence of small vegetation. 4. Degenerative abnormalities of mitral valve with mild mitral insufficiency. Mobile echodensity adjacent to ventricular surface of anterior mitral leaflet suggests the presence of vegetation. 5. Mild tricuspid insufficiency. 6. Normal central venous pressure and likely mild pulmonary hypertension. 7. Pacemaker electrodes apparent in right-sided heart chambers. 8. Compared to transesophageal echocardiogram from 12/13/2018, there is probably minimal change accounting for different type of study.
--- NOTE | 2019-01-03 23:14 | IPN ---
DATE: 01/03/2019 Mr. Maza is doing better. He is eating supper. He has no complaints. No nausea, vomiting or abdominal pain. His diarrhea seems to have improved. He has no fever or chills. He had his echocardiogram done yesterday, read with by Dr. Valdivia, which shows a vegetation on his mitral valve, unchanged and mild mitral regurgitation. Blood culture from 12/30/2018 are no growth, two sets. LABORATORY DATA: White count is 3.1, hemoglobin 7.4, hematocrit 23.8, platelets 66. Sodium 142, potassium 3.7, chloride 111, bicarbonate 22, BUN 48, creatinine 1.96, glucose 114, calcium 7.5, magnesium 2, CRP 10.9 on 01/02/2019. On physical exam, temperature is 98, pulse 81, respirations 16, blood pressure 96/62 down to 86/50 tonight with oxygen saturation (O2 sat) 93% on 4 liters nasal cannula. IMPRESSION: 1. Mitral valve endocarditis with Streptococcus infantarius, on IV Rocephin with repeat negative culture. Followup echocardiogram shows no worsening of vegetation or worsening mitral regurgitation to explain his cardiac decompensation. 2. Congestive heart failure. Has improved with IV diuresis, but patient is currently hypotensive. He is on furosemide 250 mg IV every 24 hours, probably this needs to be held at this point. Last dose was on 01/03/2019 at 4:00 p.m. 3. Multiple myeloma. Chemotherapy on hold until the patient is done with IV antibiotics. Antibiotics to be discontinued after 4 weeks of negative culture, which would be 01/05/2019. PLAN Will obtain followup ESR, CRP in the morning. Chest CT done on 12/30/2018 showed marked emphysema, unchanged. Right lower lobe lesion, asymmetric densities and ground glass densities scattered throughout the lung [place], significantly increased from prior exam. New 1.6 cm asymmetric density in the lingula, likely atelectasis. MTDD
[2019-01-03 23:59] VITALS: BP 100/68
--- NOTE | 2019-01-04 03:23 | IPN ---
DATE OF VISIT: 01/03/2019 Mr. Maza is seen on his bedside this morning. He remains very weak and short of breath. He is still requiring 5 liters of oxygen. CAT scan of his chest was done yesterday due to persistent hypoxemia and he is found to have mostly interstitial lung disease without any large effusion or consolidation. These infiltrates are essentially unchanged even with diuresis. In the meantime the patient remains mostly bedridden and is very weak. PHYSICAL EXAMINATION: Temperature 97.5 degrees Fahrenheit, heart rate 74 per minute and respiratory rate 20 per minute. Blood pressure 104/56 mmHg and oxygen saturation 94% on 5 liters oxygen. Intake and output records from yesterday are negative by 430. His head is atraumatic. Neck is supple and without any jugular venous distention (JVD) or thyroid enlargement. There is no oral thrush or ulcers. Heart: Sounds are regular and lungs have bilateral basilar crackles. Abdomen: Soft and nontender. Extremities: Have no cyanosis or clubbing. There is no peripheral edema. Neurologically he is awake and at his baseline mentation. LABORATORIES: Today's labs show white blood cell (WBC) count 3.1, hemoglobin 7.4 and hematocrit 23.8. Platelets 66,000. Sodium 142, potassium 3.7, CO2 22, BUN 48 and creatinine 1.96. PROBLEMS: 1. Acute renal failure superimposed on chronic kidney disease. No significant change in kidney function but slight improvement compared with yesterday. At this point we will continue to monitor his renal function on a daily basis. 2. Hypoxemia. I feel his hypoxemia is mostly due to interstitial pulmonary infiltrates. I am not sure if he is volume overloaded. I am stopping his Lasix drip today and we will monitor him closely. I do not feel that diuresing is helping with his hypoxemia at this point and he does not have any peripheral edema now. 3. Hypokalemia. His potassium level has also corrected and we will stop the potassium supplement as his diuretic is also being stopped. 4. Pancytopenia. The patient has persistent pancytopenia and anemia is worsening. I would recommend to transfuse him at least 1 unit of packed red blood cell which will help with his hypoxemia also. 5. Recent history of endocarditis. The patient remains on antibiotics and is scheduled for a transesophageal echocardiogram today.
[2019-01-04 04:00] VITALS: BP 98/59
[2019-01-04 07:47] VITALS: BP 113/66
[2019-01-04 07:53] LABS: HEMATOCRIT 24.1 % (42.0-52.0); HEMOGLOBIN 7.4 g/dl (13.5-17.5); MEAN CORPUSCULAR HEMOGLOBIN 27.7 pg (27.0-33.0); MEAN CORPUSCULAR HGB CONC 30.7 g/dl (32.0-36.5); MEAN CORPUSCULAR VOLUME 90.3 fl (80.0-96.0); RED BLOOD COUNT 2.67 10^6/uL (4.30-6.10); WHITE BLOOD COUNT 3.3 10^3/uL (4.0-10.0)
[2019-01-04 07:59] LABS: PLATELET COUNT, AUTOMATED 67 10^3/uL (150-450)
[2019-01-04 08:20] LABS: CALCIUM LEVEL 7.4 MG/DL (8.8-10.2); CREATININE FOR GFR 1.96 MG/DL (0.70-1.30); MAGNESIUM LEVEL 1.9 MG/DL (1.8-2.4); POTASSIUM SERUM 3.5 MEQ/L (3.5-5.1)
[2019-01-04] MEDS: DOCUSATE SODIUM 100 MG CAP PO SCH ×2 (10:54→20:38)
[2019-01-04] MEDS: SERTRALINE HCL 50 MG TAB PO SCH (10:54)
[2019-01-04] MEDS: ACYCLOVIR 200 MG CAPSULE PO SCH ×2 (10:54→20:37)
[2019-01-04] MEDS: FAMOTIDINE 20 MG TAB PO SCH (10:54)
[2019-01-04] MEDS: METOPROLOL SUCC *XL* 25MG TAB (TopROL *XL*) PO SCH ×2 (10:55→20:37)
[2019-01-04] MEDS: APIXABAN 5 MG TAB (ELIQUIS) PO SCH ×2 (10:55→20:37)
[2019-01-04] MEDS: ALLOPURINOL 300 MG TAB PO SCH (10:55)
[2019-01-04] MEDS: BOUDREAUX'S BUTT PASTE TOP SCH ×3 (10:55→20:38)
[2019-01-04 12:23] VITALS: BP 121/67
--- NOTE | 2019-01-04 13:56 | NUR ---
Discharge recommendations: continue level 3 diet, continue COPD energy conservation strategies Pt safely tolerating level 3 diet. D/t poor dentition, cognition, chronic SOB, and disorganized mastication, upgrade to level 4 solids is not appropriate at this time. D/c dysphagia tx. Addendum: 01/04/[address] [facility] Amended: Links added.
--- NOTE | 2019-01-04 14:06 | IPNPDOC ---
Date Seen The patient was seen on 01/04/19. Progress Note SUBJECTIVE: Patient reported feeling fine this morning. Still very weak however and cannot walk too far without desaturation, also becomes hypotensive briefly with exertion when walking with PT. O2 titrated down to 3L on NC, stable when sitting still but desat with exertion. Lasix drip had been discontinued. OBJECTIVE PHYSICAL EXAMINATION: VITAL SIGNS: Please see below. General: No acute distress, Alert Eyes: Normal sclera, EOMI, SCOUT HENT: Atraumatic, neck supple, moist mucous membranes Cardiovascular: Normal rate, normal rhythm. Pulmonary: Clear to auscultation b/l, no wheezing GI: Soft, nontender, nondistended Skin: Warm and dry Neuro: CN grossly intact. No focal deficits. Strengths equal b/l. Psych: oriented x 3 LABORATORY DATA, IMAGING STUDIES, MICROBIOLOGY: Please see below. DVT prophylaxis ordered?: Eliquis ASSESSMENT AND PLAN: 1. Acute decompensated diastolic HF w/ recent history of endocarditis - Lasix drip discontinued. Does not appear to be fluid overloaded at this time. - Repeat TTE 01/02 showed no significant changes from prior. 2. 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 - Renal and ID on board. - c/w abx to complete on 01/05. - Repeat ISMAEL 01/02 showed no significant changes from prior ECHO. 3. Pancytopenia in setting of chemotherapy for MM - follows with Dr. Rice. - On Revlimid and Daratumumab, last dose 3 weeks prior. - c/w Acyclovir for ppx - follow daily ANC. Has been afebrile. 4. DUSTIN on CKD - likely 2/2 diuresis. Renal following. - Lasix dripped had been discontinued. 5. A flutter - c/w home meds. 6. hx DVT on Eliquis 7. SOB/Hypoxemia - had been diuresed aggressively, appear euvolemic at this time. - O2 had been able to titrate down to 3L NC but desat with exertion. - Appear to have possible underlying pulmonary disease rather than cardiac etiology. - c/w with treatment and wean O2 as tolerated. Other chronic conditions: COPD, Gout, HLD, Depression, BPH- c/w home meds DNR A-FIB/CHADSVASC A-FIB History Current/History of A-Fib/PAF?: No VS, I&O, 24H, Fishbone Vital Signs/I&O Vital Signs Date Time Temp Pulse Resp B/P (MAP) Pulse Ox O2 Delivery O2 Flow Rate FiO2 01/04/19 12:23 97.6 78 18 121/67 (85) 96 3.0 12/31/18 04:00 96 I&O- Last 24 Hours up to 6 AM 01/04/19 06:00 Intake Total 1200 ml Output Total 1275 ml Balance -75 ml Laboratory Data 24H LABS Laboratory Tests 2 01/04/19 07:34: Nucleated Red Blood Cells % (auto) 3.7H, Immature Platelet Fraction 6.0, Anion Gap 11, Glomerular Filtration Rate 36.0L, Blood Urea Nitrogen 45H, Creatinine 1.96H, Sodium Level 140, Potassium Level 3.5, Chloride Level 109H, Carbon Dioxide Level 20L, Calcium Level 7.4L, Magnesium Level 1.9 CBC/BMP Laboratory Tests 01/04/19 07:34 Red Blood Count 2.67 L, Mean Corpuscular Volume 90.3, Mean Corpuscular Hemo globin 27.7, Mean Corpuscular Hemoglobin Concent 30.7 L, Red Cell Distribution Width 24.3 H, Calcium Level 7.4 L Microbiology Microbiology 12/30/18 Blood Culture - Preliminary, Resulted No Growth after 72 hours. All specime... JESSICA ENGLE MD January 04, 2019 14:06
--- NOTE | 2019-01-04 15:48 | IPN ---
DATE OF VISIT: 01/04/2019 Mr. Maza is seen this morning on his bedside. He is feeling better and his oxygen requirement is down to 3 liters now. His hypoxemia is slowly improving. He denies any nausea or vomiting. He is eating cookies at the time of my visit. On physical exam, temperature 97.7 degrees Fahrenheit, heart rate 72 per minute and respiratory rate 18 per minute. Blood pressure 113/66 mmHg and oxygen saturation 96% on 3 liters of oxygen. Intake and output records from yesterday are negative by only 380 mL. His Lasix drip was stopped yesterday. His head is atraumatic. Neck is supple and jugular venous distention (JVD) is not clinically visible. His heart sounds are regular and lungs with slightly diminished breath sounds. Abdomen soft and nontender, and bowel sounds are normal. Extremities have no cyanosis or clubbing. Neurologically, he is without any significant pattern changer last 24 hours. Today's labs show WBC count 3.3, hemoglobin 7.4 and hematocrit 24.1. Platelets 67,000. Sodium 140, potassium 3.5, CO2 20, BUN 45 and creatinine 1.96. Glucose 143 and calcium 7.4. PROBLEMS: 1. Acute kidney injury superimposed on chronic kidney disease. No change in kidney function over last 24 hours. His volume status seems to be euvolemic now. 2. Hypoxemia. I feel it is mostly due to interstitial lung disease. I do not feel that he has any evidence of congestive heart failure at present. His Lasix drip has already stopped. We will continue to monitor volume status closely. 3. Hypokalemia. His potassium level is down to 3.5 today again. He was receiving potassium supplement until yesterday. However, now he is off Lasix drip, so I stopped his potassium supplement also. I will give him just one dose of potassium chloride 40 mEq today and recheck his electrolytes tomorrow. 4. Anemia. His anemia is significant though without any change since yesterday. I would recommend transfusing him at least 1 unit of packed red blood cells (RBCs) but would defer final decision to hospitalist service.
[2019-01-04 16:00] VITALS: BP 109/60
[2019-01-04] MEDS ORDERED: POTASSIUM CHLORIDE 10 MEQ SR TABLET PO ONE (16:00)
[2019-01-04] MEDS: cefTRIAXone SOD 2 GM in D5W MINI-BAG PLUS 50 ML IV SCH (16:20)
[2019-01-04 20:00] VITALS: BP 130/64
[2019-01-04] MEDS: TAMSULOSIN 0.4 MG CAP PO SCH (20:37)
[2019-01-04] MEDS: ASPIRIN 81 MG ENTERIC TAB PO SCH (20:37)
[2019-01-04] MEDS: ATORVASTATIN 20 MG TAB PO SCH (20:37)
[2019-01-05] VITALS: BP 112/64
[2019-01-05 04:00] VITALS: BP 129/60
[2019-01-05 04:44] LABS: HEMATOCRIT 23.7 % (42.0-52.0); HEMOGLOBIN 7.4 g/dl (13.5-17.5); MEAN CORPUSCULAR HEMOGLOBIN 28.4 pg (27.0-33.0); MEAN CORPUSCULAR HGB CONC 31.2 g/dl (32.0-36.5); MEAN CORPUSCULAR VOLUME 90.8 fl (80.0-96.0); RED BLOOD COUNT 2.61 10^6/uL (4.30-6.10); WHITE BLOOD COUNT 3.5 10^3/uL (4.0-10.0)
[2019-01-05 04:59] LABS: PLATELET COUNT, AUTOMATED 66 10^3/uL (150-450)
[2019-01-05 05:05] LABS: CALCIUM LEVEL 7.6 MG/DL (8.8-10.2); CREATININE FOR GFR 1.81 MG/DL (0.70-1.30); GLOMERULAR FILTRATION RATE 39.4 (>42); MAGNESIUM LEVEL 1.6 MG/DL (1.8-2.4); POTASSIUM SERUM 3.7 MEQ/L (3.5-5.1)
[2019-01-05 08:00] VITALS: BP 106/56
[2019-01-05] MEDS ORDERED: MAG SULF 1GM/100ML (MAG RUN) 1 GM in APPROPRIATE DILUENT 1 EA IV ONE (08:00)
[2019-01-05] MEDS: ALLOPURINOL 300 MG TAB PO SCH (09:35)
[2019-01-05] MEDS: SERTRALINE HCL 50 MG TAB PO SCH (09:35)
[2019-01-05] MEDS: ACYCLOVIR 200 MG CAPSULE PO SCH ×2 (09:35→21:13)
[2019-01-05] MEDS: FAMOTIDINE 20 MG TAB PO SCH (09:35)
[2019-01-05] MEDS: DOCUSATE SODIUM 100 MG CAP PO SCH ×2 (09:35→20:58)
[2019-01-05] MEDS: APIXABAN 5 MG TAB (ELIQUIS) PO SCH ×2 (09:35→21:12)
[2019-01-05] MEDS: BOUDREAUX'S BUTT PASTE TOP SCH ×3 (09:36→21:13)
[2019-01-05] MEDS: METOPROLOL SUCC *XL* 25MG TAB (TopROL *XL*) PO SCH ×2 (09:52→21:13)
[2019-01-05 12:00] VITALS: BP 126/72
--- NOTE | 2019-01-05 13:05 | IPN ---
DATE OF VISIT: 01/05/2019 Mr. Maza is seen this morning on his bedside. He is feeling about the same and denies any new complaints. He has no nausea or vomiting. He remains hypoxic and is currently on 3 liters oxygen. On physical exam, temperature 98.4 degrees Fahrenheit, heart rate 72 per minute and respiratory rate 18 per minute. Blood pressure 126/72 mmHg and oxygen saturation 93% on 3 liters oxygen. Intake and output records from yesterday are probably incomplete but only mildly positive. His head is atraumatic. Neck is supple and without jugular venous distention (JVD) or thyroid enlargement. Heart sounds are regular and lungs sound clear to auscultation. Abdomen soft and nontender, and bowel sounds are normal. Extremities have no cyanosis or clubbing. Neurologically, he is at his baseline mentation without a focal deficit. Today's labs show sodium 141, potassium 3.7, CO2 21, BUN 41 and creatinine 1.81. Glucose 95 and calcium 7.6. Magnesium level is 1.6. His WBC count is 3.5, hemoglobin 7.4 and hematocrit 23.7. Platelets 66,000. PROBLEMS: 1. Acute renal failure superimposed on chronic kidney disease. Slight improvement in kidney function is noted. No electrolyte problems. This is probably close to his baseline kidney function. 2. Congestive heart failure. His volume status has improved and probably is close to euvolemia. Lasix has already been stopped and we can use diuretic only on as-needed basis. 3. Anemia. His anemia is significant but unchanged. I will defer to hospitalist service for consideration of a transfusion. 4. Hypoxemia. Most likely related to pulmonary fibrosis and not volume overload. He is gradually improving. His volume status is I feel optimized already. 5. Hypomagnesemia. His magnesium level is borderline low and he is already receiving magnesium supplement. It is likely to correct. He can probably be put on oral magnesium supplement.
[2019-01-05 15:31] LABS: C REACTIVE PROTEIN QUANTITATIV 4.47 MG/DL (0.00-0.30)
--- NOTE | 2019-01-05 16:22 | IPNPDOC ---
Date Seen The patient was seen on 01/05/19. Progress Note SUBJECTIVE: Patient reported feeling fine this morning and that he is breathing better than before. Still gets SOB with mobility. On 3L O2 via NC, trying to wean down to 2 and assess tolerance to physical activity with PT. OBJECTIVE PHYSICAL EXAMINATION: VITAL SIGNS: Please see below. General: No acute distress, Alert Eyes: Normal sclera, EOMI, SCOUT. HENT: Atraumatic, neck supple, moist mucous membranes Cardiovascular: Normal rate, normal rhythm. Pulmonary: Clear to auscultation b/l, no wheezing GI: Soft, nontender, nondistended Skin: Warm and dry Neuro: CN grossly intact. No focal deficits. Strengths equal b/l. Psych: oriented x 3 LABORATORY DATA, IMAGING STUDIES, MICROBIOLOGY: Please see below. DVT prophylaxis ordered?: Eliqumary ann ASSESSMENT AND PLAN: 1. Acute decompensated diastolic HF w/ recent history of endocarditis - Lasix drip discontinued. Does not appear to be fluid overloaded at this time. - Repeat TTE 01/02 showed no significant changes from prior. - Lasix drip had been discontinued. No evidence of fluid overload at this time. 2. 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 - Renal and ID on board. - c/w abx to complete on 01/05. - Repeat ISMAEL 01/02 showed no significant changes from prior ECHO. 3. Pancytopenia in setting of chemotherapy for MM - follows with Dr. Rice. - On Revlimid and Daratumumab, last dose 3 weeks prior. - c/w Acyclovir for ppx - follow daily ANC. Has been afebrile. 4. DUSTIN on CKD - likely 2/2 diuresis. Renal following. - Lasix dripped had been discontinued. 5. A flutter - c/w home meds. 6. hx DVT on Eliquis 7. SOB/Hypoxemia - had been diuresed aggressively, appear euvolemic at this time. - O2 had been able to titrate down to 3L NC but desat with exertion. - Appear to have possible underlying pulmonary disease rather than cardiac et iology. - c/w with treatment and wean O2 as tolerated. 8. Anemia - Hb stable at 7.4. No evidence of bleed. - Will monitor and plan for threshold of Hb <7 for transfusion. Other chronic conditions: COPD, Gout, HLD, Depression, BPH- c/w home meds Will plan for possibly [facility] evaluation tomorrow for possible transfer back there soon if agreeable by consultants. DNR A-FIB/CHADSVASC A-FIB History Current/History of A-Fib/PAF?: No VS, I&O, 24H, Fishbone Vital Signs/I&O Vital Signs Date Time Temp Pulse Resp B/P (MAP) Pulse Ox O2 Delivery O2 Flow Rate FiO2 01/05/19 14:05 94 3.0 01/05/19 12:00 98.4 72 18 126/72 (90) 12/31/18 04:00 96 I&O- Last 24 Hours up to 6 AM 01/05/19 06:00 Intake Total 600 ml Output Total 700 ml Balance -100 ml Laboratory Data 24H LABS Laboratory Tests 2 01/05/19 04:28: Nucleated Red Blood Cells % (auto) 4.6H, Anion Gap 8, Glomerular Filtration Rate 39.4L, Blood Urea Nitrogen 41H, Creatinine 1.81H, Sodium Level 141, Potassium Level 3.7, Chloride Level 112H, Carbon Dioxide Level 21, Calcium Level 7.6L, Magnesium Level 1.6L, C-Reactive Protein, Quantitative 4.47H CBC/BMP Laboratory Tests 01/05/19 04:28 Red Blood Count 2.61 L, Mean Corpuscular Volume 90.8, Mean Corpuscular Hemoglobin 28.4, Mean Corpuscular Hemoglobin Concent 31.2 L, Red Cell Distribution Width 24.3 H, Calcium Level 7.6 L Microbiology Microbiology 12/30/18 Blood Culture - Final, Complete NO GROWTH AFTER 5 DAYS JESSICA ENGLE MD January 05, 2019 16:22
--- NOTE | 2019-01-05 17:16 | IPNPDOC ---
Text Note Date of Service The patient was seen on 01/05/19. NOTE SUBJECTIVE: Mr. Maza was examined at bed side. He had no acute complaints. He reports that he is breathing better. OBJECTIVE: PHYSICAL EXAMINATION: GENERAL APPEARANCE: Alert no acute distress. SKIN: Warm, well perfused. THORAX: Symmetrical. LUNGS: Clear to auscultation bilaterally. HEART: Normal S1, S2. No murmurs, no rubs, no gallops ABDOMEN: Soft. No masses. Bowel sounds are present. TRUNK/SPINE:Straight. EXTREMITIES: Moves all extremities equally. No gross deformities. PULSES: 2+ upper and lower extremity . LABORATORY DATA: Please see below. ASSEMENT AND PLAN: 1. Mitral valve endocarditis with Streptococcus infantarius. Has reached date of completion for his Rocephin. Repeat blood cultures 2 sets on wednesday to monitor for recurrent growth. 2. Congestive heart failure. Has improved with IV diuresis. IV lasix drip has been discontinued. Current managed by nephrology and hospital team 3. Multiple myeloma. Chemotherapy can be resumed. VS,Fishbone, I+O VS, Fishbone, I+O Laboratory Tests 01/05/19 04:28 Red Blood Count 2.61 L, Mean Corpuscular Volume 90.8, Mean Corpuscular Hemoglobin 28.4, Mean Corpuscular Hemoglobin Concent 31.2 L, Red Cell Distribution Width 24.3 H, Calcium Level 7.6 L Vital Signs Date Time Temp Pulse Resp B/P (MAP) Pulse Ox O2 Delivery O2 Flow Rate FiO2 01/05/19 16:00 98.9 74 20 93 3.0 01/05/19 12:00 126/72 (90) 12/31/18 04:00 96 I&O- Last 24 Hours up to 6 AM 01/05/19 06:00 Intake Total 600 ml Output Total 700 ml Balance -100 ml RONAL AUGUSTINE DO January 05, 2019 17:16
[2019-01-05 20:00] VITALS: BP 106/53
[2019-01-05] MEDS: TAMSULOSIN 0.4 MG CAP PO SCH (21:12)
[2019-01-05] MEDS: ASPIRIN 81 MG ENTERIC TAB PO SCH (21:13)
[2019-01-05] MEDS: ATORVASTATIN 20 MG TAB PO SCH (21:13)
[2019-01-05 23:59] VITALS: BP 112/63
[2019-01-06 00:06] LABS: ANTI-GLOMERULAR BASEMENT MEMB 3 units (0-20)
[2019-01-06 04:00] VITALS: BP 106/70
[2019-01-06 05:29] LABS: HEMATOCRIT 23.5 % (42.0-52.0); HEMOGLOBIN 7.3 g/dl (13.5-17.5); MEAN CORPUSCULAR HEMOGLOBIN 28.3 pg (27.0-33.0); MEAN CORPUSCULAR HGB CONC 31.1 g/dl (32.0-36.5); MEAN CORPUSCULAR VOLUME 91.1 fl (80.0-96.0); PLATELET COUNT, AUTOMATED 65 10^3/uL (150-450); RED BLOOD COUNT 2.58 10^6/uL (4.30-6.10); WHITE BLOOD COUNT 3.7 10^3/uL (4.0-10.0)
[2019-01-06 05:53] LABS: CALCIUM LEVEL 7.9 MG/DL (8.8-10.2); CREATININE FOR GFR 1.66 MG/DL (0.70-1.30); GLOMERULAR FILTRATION RATE 43.6 (>42); POTASSIUM SERUM 3.5 MEQ/L (3.5-5.1)
[2019-01-06 08:03] VITALS: BP 120/59
[2019-01-06] MEDS: DOCUSATE SODIUM 100 MG CAP PO SCH (08:47)
[2019-01-06 08:48] VITALS: BP 120/59
[2019-01-06] MEDS: FAMOTIDINE 20 MG TAB PO SCH (08:48)
[2019-01-06] MEDS: METOPROLOL SUCC *XL* 25MG TAB (TopROL *XL*) PO SCH (08:48)
[2019-01-06] MEDS: APIXABAN 5 MG TAB (ELIQUIS) PO SCH (08:48)
[2019-01-06] MEDS: SERTRALINE HCL 50 MG TAB PO SCH (08:48)
[2019-01-06] MEDS: ALLOPURINOL 300 MG TAB PO SCH (08:48)
[2019-01-06] MEDS: ACYCLOVIR 200 MG CAPSULE PO SCH (08:48)
[2019-01-06] MEDS: BOUDREAUX'S BUTT PASTE TOP SCH (08:49)
[2019-01-06] MEDS ORDERED: POTASSIUM CHLORIDE 10 MEQ SR TABLET PO SCH (09:00)
--- NOTE | 2019-01-06 11:24 | DS.PDOC ---
Discharge Summary General Date of Admission December 30, 2018 at 14:46 Date of Discharge 01/06/19 Attending Physician: JESSICA ENGLE MD Specialist/Consultants Involve: Daniel Lobato Specialist/Consultants Involve Dr. Gonzales Diaz Discharge Summary PROCEDURES PERFORMED DURING STAY: [None]. ADMITTING DIAGNOSES: 1. Acute decompensated HF 2. 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 Pancytopenia in setting of MM 4. Multiple Myeloma 5. DUSTIN on CKD 6. A flutter 7. Hx DVT on Eliquis DISCHARGE DIAGNOSES: 1. Acute decompensated HF 2. 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 Pancytopenia in setting of MM 4. Multiple Myeloma 5. DUSTIN on CKD 6. A flutter 7. Hx DVT on Eliquis COMPLICATIONS/CHIEF COMPLAINT: CHF. HISTORY OF PRESENT ILLNESS: " [73-year-old gentleman with PMH of a. flutter and third degree AV block with pacemaker, multiple myeloma, DVT, COPD, multiple myeloma, and CKD with recent diagnosis of acute bacterial endocarditis with Streptococcus infantarius bacteremia presents to [facility] ER due to fever of 102F at home and admitted and treated for Febrile neutropenia 2/2 Acute bacterial endocarditis with Streptococcus infantarius bacteremia. Patient was treated and improved to point the patient was transferred to ARU 12/28/18. Hospitalist was consulted for medical management. Patient denies of any discomfort at this time. Patient has chronic diarrhea intermittently which is unchanged. Patient does not have any fever, able to tolerate by mouth intake without difficulty. Patient's goal is to regain his strength back." HOSPITAL COURSE: Patient was transfer from ARU to inpatient due to worsening SOB, requiring high O2 use. He was placed on a Lasix drip for diuresis and ECHO was repeated which showed no significant changes from before. Course of Antibiotics for his endocarditis completed yesterday with repeat blood culture remained negative today. Both nephrology and ID followed along throughout course of admission. Plan for repeat blood cultures on Wednesday to see if the blood cultures will remain negative/confirmation of resolution of bacteremia. We were able to wean his O2 requirement down to 3L and working on bringing it to 2L on this admission. His functional status seem to be improving, although still needs work. Reportedly becomes hypoxic with walking but had improved. Reports feeling well today without significant SOB and is able to move around more without getting significant SOB as before. To discharge patient to ARU to continue PT. Patient appeared euvolemic now. Components of respiratory insufficiency likely due to underlying pulmonary disease. DISCHARGE MEDICATIONS: Please see below. ALLERGIES: Please see below. PHYSICAL EXAMINATION ON DISCHARGE: VITAL SIGNS: Please see below. General: No acute distress, Alert Eyes: Normal sclera, EOMI, SCOUT. HENT: Atraumatic, neck supple, moist mucous membranes Cardiovascular: Normal rate, normal rhythm. Pulmonary: Clear to auscultation b/l, no wheezing GI: Soft, nontender, nondistended Skin: Warm and dry Neuro: CN grossly intact. No focal deficits. Strengths equal b/l. Psych: oriented x 3 LABORATORY DATA: Please see below. IMAGING: Chest CT- Impression: Fairly extensive bilateral interstitial infiltrates essentially unchanged from January 08, 2019 but new from November 14, 2018. No new infiltrate seen. No pleural effusion noted. Fibroatelectatic changes right lower lobe unchanged. ACTIVITY: [As tolerated]. DIET: Cardiac diet DISCHARGE PLAN: continue PT in ARU. Repeat blood cultures on Wednesday. DISPOSITION: ARU. DISCHARGE INSTRUCTIONS: continue PT in ARU. Repeat blood cultures on Wednesday. ITEMS TO FOLLOWUP ON ON OUTPATIENT: NONE DISCHARGE CONDITION: [Stable]. TIME SPENT ON DISCHARGE: 35 minutes. Vital Signs/I&Os Vital Signs Date Time Temp Pulse Resp B/P (MAP) Pulse Ox O2 Delivery O2 Flow Rate FiO2 01/06/19 08:48 62 120/59 01/06/19 08:03 97.3 19 92 2.0 12/31/18 04:00 96 I&O- Last 24 Hours up to 6 AM 01/06/19 06:00 Intake Total 1040 ml Output Total 400 ml Balance 640 ml Laboratory Data Labs 24H Laboratory Tests 2 01/06/19 05:11: Nucleated Red Blood Cells % (auto) 2.7H, Immature Platelet Fraction 6.1, Anion Gap 9, Glomerular Filtration Rate 43.6, Blood Urea Nitrogen 39H, Creatinine 1.66H, Sodium Level 140, Potassium Level 3.5, Chloride Level 111H, Carbon Dioxide Level 20L, Calcium Level 7.9L, Magnesium Level 2.0 CBC/BMP Laboratory Tests 01/06/19 05:11 Red Blood Count 2.58 L, Mean Corpuscular Volume 91.1, Mean Corpuscular Hemoglo bin 28.3, Mean Corpuscular Hemoglobin Concent 31.1 L, Red Cell Distribution Width 24.5 H, Calcium Level 7.9 L Microbiology Microbiology 12/30/18 Blood Culture - Final, Complete NO GROWTH AFTER 5 DAYS Discharge Medications Scheduled Acyclovir (Acyclovir) 400 Mg Tablet, 400 MG PO BID, (Reported) Allopurinol (Zyloprim) 300 Mg Tablet, 300 MG PO DAILY, (Reported) Apixaban (Eliquis) 5 Mg Tab, 5 MG PO BID, (Reported) Aspirin (Aspirin EC) 81 Mg Tab, 81 MG PO QPM, (Reported) Atorvastatin Calcium (Atorvastatin Calcium) 20 Mg Tab, 20 MG PO QHS, (Reported) Ceftriaxone Sodium (Ceftriaxone) 1 Gm Vial, 2 GM IV DAILY, (Reported) SPOUSE ADMINISTERS THROUGH PORT DAILY Cholecalciferol (Vitamin D3) (Vitamin D3) 2,000 Unit Capsule, 2,000 UNIT PO DAILY, (Reported) Dexamethasone (Dexamethasone) 4 Mg Tablet, 20 MG PO Q2WK, (Reported) TAKES ON THE WEDNESDAY BEFORE CHEMO ([id number]) Famotidine (Famotidine) 20 Mg Tab, 20 MG PO DAILY, (Reported) Metoprolol Succinate (Metoprolol Succinate) 25 Mg Tab.er.24h, 25 MG PO BID, (Reported) Montelukast Sodium (Montelukast Sodium) 10 Mg Tablet, 10 MG PO Q2WK, (Reported) TAKES PRIOR TO CHEMO EVERY 2 WEEKS Sertraline Hcl (Sertraline HCl) 50 Mg Tab, 100 MG PO DAILY, (Reported) Tamsulosin HCl (Flomax) 0.4 Mg Cap, 0.4 MG PO QHS, (Reported) Tiotropium [place] (Spiriva Respimat) 4 Gm Mist.inhal, 2 PUFFS INH DAILY, (Reported) Zinc Oxide (Boudreauxs) 16% Oint...g., 1 OZ TOP TID Scheduled PRN Acetaminophen (Acetaminophen) 325 Mg Tab, 650 MG PO Q4H PRN for PAIN, (Reported) Albuterol Sulfate (Ventolin Hfa) 18 Gm Hfa.aer.ad, 2 PUFF INH Q4H PRN for SHORTNESS OF BREATH, (Reported) Ipratropium/Albuterol Sulfate (Iprat-Albut 0.5-3(2.5) mg/3 ml) 3 Ml Ampul.neb, 3 ML NEB Q6H PRN for SOB/WHEEZING Allergies Coded Allergies: No Known Allergies (Unverified , 11/16/18) JESISCA ENGLE MD January 06, 2019 11:24
[2019-01-06 11:38] VITALS: BP 104/68
--- NOTE | 2019-01-06 16:15 | IPN ---
DATE: 01/06/2019 Mr. Maza is seen this morning on his bedside. He remains essentially unchanged and continues to use oxygen via nasal cannula at 2 liters. This is significant improvement from 10 liter supplementation on admission. He has been aggressively diuresed, and volume status has corrected. He is noticed to have interstitial lung disease on recent CT scan of chest. He still very weak and needs to go back to acute rehabilitation for physical therapy. The patient denies any nausea or vomiting. He has no fever or chills. He has a history of pancytopenia, which has been essentially unchanged. PHYSICAL EXAMINATION: Temperature 97.3 degrees Fahrenheit, heart rate 62 per minute, respiratory rate 18 per minute, blood pressure 120/59 mm of mercury, and oxygen saturation 92% on 2 liters oxygen. Head is atraumatic. Neck is supple and without jugular venous distention (JVD) or thyroid enlargement. Heart sounds are regular, and lungs sound clear to auscultation. Abdomen soft and nontender. Bowel sounds are normal. Extremities have no cyanosis or clubbing. Neurologically, he is at his baseline mentation. Today's labs show WBC count 3.7, hemoglobin 7.3, and hematocrit 23.5. Platelets 65,000. Sodium 140, potassium 3.5, CO2 of 20, BUN 39, and creatinine 1.66. PROBLEMS: 1. Acute renal failure superimposed on chronic kidney disease. Kidney function has improved significantly, and it is almost at baseline. Electrolytes are stable. 2. Congestive heart failure. Volume status has improved and corrected. At present, he is not on any standing dose of diuretic. We can use diuretic only on as-needed basis. 3. Hypokalemia, probably related to poor oral intake. I am going to put him back on potassium chloride 20 mEq twice a day, and his electrolytes should be monitored at least once or twice a week. 4. Generalized weakness and deconditioning. The patient is going to be transferred to acute rehabilitation floor once he gets cleared from medicine. 5. Anemia. His anemia is significant and not improving at all. I have discussed with the hospitalist service and asked to transfuse him at least 1 unit of packed red blood cells (RBC).
[2019-01-12] MEDS ORDERED: MONTELUKAST 10 MG TAB PO SCH (09:00)
== END 2019-01-06 16:22 | DRG 291 ==
LOC: M PCU 14:46
PROVIDERS: ADMIT Internal Medicine; ATTEND Student in an Organized Health Care Education/Training Program
PROC: 30233N1 Transfusion of Nonautologous Red Blood Cells into Peripheral Vein, Percutaneous Approach (ICD-10-PCS; principal; 2019-01-04)
DX: I50.33 Acute on chronic diastolic (congestive) heart failure (principal); I33.0 Acute and subacute infective endocarditis; D61.810 Antineoplastic chemotherapy induced pancytopenia; C90.00 Multiple myeloma not having achieved remission; I48.92 Unspecified atrial flutter; N17.9 Acute kidney failure, unspecified; E46 Unspecified protein-calorie malnutrition; R78.81 Bacteremia; Z79.01 Long term (current) use of anticoagulants; Z86.718 Personal history of other venous thrombosis and embolism; Z95.0 Presence of cardiac pacemaker; J44.9 Chronic obstructive pulmonary disease, unspecified; N18.3 Chronic kidney disease, stage 3 (moderate); Z79.899 Other long term (current) drug therapy; Z79.82 Long term (current) use of aspirin; M10.9 Gout, unspecified; B95.5 Unspecified streptococcus as the cause of diseases classified elsewhere; E87.6 Hypokalemia; G47.33 Obstructive sleep apnea (adult) (pediatric); E83.42 Hypomagnesemia; K21.9 Gastro-esophageal reflux disease without esophagitis; F32.9 Major depressive disorder, single episode, unspecified

== ENCOUNTER 2019-01-06 14:24 | Inpatient (IN) | payer MEDICARE, OTHER ==
[~2019-01-06] VITALS: Ht 182.9 cm; Wt 108.9 kg
[2019-01-06 16:30] VITALS: BP 120/81
--- NOTE | 2019-01-06 17:37 | HPEPDOC ---
Color Worker Note DATE OF ADMISSION: January 06, 2019 at 16:25 SOURCE OF ADMISSION INFORMATION:[facility] records and patient CHIEF COMPLAINT: endocarditis HISTORY OF PRESENT ILLNESS: 73M pmh A flutter, third degree AV block with pacemaker, multiple myeloma, large B cell lymphoma s/p chemo and radiation, COPD, DVT and CKD who was recently hospitalized for neutropenic fever, found to have Strep Infantarius endocarditis and started on a 4 week course of Ceftriaxone under the direction of ID, was sent home on 12/21/18 and returned to [facility] ED on 12/25/18 complaining of diarrhea, fever, and inability to walk. On admission chest XR showed, chronic changes with a new infiltrate, his stool was negative for C diff, he was given gentle hydration and given respiratory support with nasal canula. Repeat blood cultures were negative. He continued to have leukopenia, anemia, hypokalemia, and generalized weakness. His fevers improved and he was evaluated by therapy who found him to have significant impairments in gait and ADLs. He was deemed medically appropriate for discharge to ARU on 12/28/18. Upon arrival his explained he had developed a bedsore on his last admission that had been difficult to keep clean while at home, and that he was independent without an AD until about one month ago with the onset of the endocarditis. On 12/30/18 patient developed worsening shortness of breath requiring 10L of 02, was deemed to be in an acute CHF exacerbation and discharged to PCU for diuresis and closer monitoring. He was evaluated by ID who recommended repeating blood cultures which ultimately came back negative and suggested ISMAEL in setting of endocarditis which was done 01/02/19 showing, Mild left ventricular hypertrophy (LVH) with preserved left ventricular systolic function, grade 1 diastolic dysfunctionSclerosis of aortic valve with no stenosis and mild insufficiency. Cannot completely rule out presence of small vegetationDegenerative abnormalities of mitral valve with mild mitral insufficiency. Mobile echodensity adjacent to ventricular surface of anterior mitral leaflet suggests the presence of vegetation, but ultimately appeared unchanged from prior study. He was continued on IV ceftriaxone, his diuretics adjusted for drops in BPs, his leukopenia gradually improved, but he still required supplemental oxygen causing suspicion for an underlying pulmonary process. He was given a blood transfusion for persistent anemia, his potassium supplements were restarted, he was evaluated by therapy and again found to have significant impairments in mobility and ADLs and deemed medically appropriate for discharge to ARU on 01/06/19. REVIEW OF SYSTEMS: The following is a completed review of systems and has been reviewed. Review of systems otherwise unremarkable. PAIN: Patient self reports no pain EYES: Negative EARS, NOSE, & THROAT: Denies dysphagia or throat pain CARDIOVASCULAR: denies chest pain or palpitations PULMONARY: +shortness of breath at rest and on exertion GASTROINTESTINAL:+diarrhea GENITOURINARY: Negative for dysuria MUSCULOSKELETAL: generalized weakness NEUROLOGICAL: no tremor or seizure activity HEMATOLOGICAL: +leukopenia and anemia SKIN +sacral ulcer PSYCHIATRIC: Unremarkable All other review of systems found to be negative. PAST MEDICAL HISTORY: as per HPI PAST SURGICAL HISTORY: laminectomy 2013, TURP, PM 11/26/17, right oriectomy 2016, right uretral nephrectomy 2001, BM biopsies ALLERGIES: Please see below. MEDICATIONS: Please see below. SOCIAL HISTORY: lives with , denies smoking, ETOH, or illicit drugs DIET: Renal PHYSICAL EXAMINATION: VITAL SIGNS: Please see below. GENERAL: Pleasant and cooperative. No acute distress. HEENT: PERRL. Extraocular movements intact. Clear conjunctiva CARDIOVASCULAR: Regular rate and rhythm. No murmurs, rubs, or gallops LUNGS: Clear to auscultation bilaterally. No wheezes. No rhonchi ABDOMEN: Soft, nontender, mildly- distended. Positive bowel sounds. Normal active bowel sounds NEUROLOGICAL: Alert and oriented times three. Cranial nerves II through XII grossly intact. Sensation grossly intact EXTREMITIES:5-\5 strength bilateral upper extremities.4-/5 hip flexors, knee extensors, ankle DF, 0/5 EHL bilat LE no edema, scattered ecchymosis SKIN: stage 2 sacral ulcer IMAGING: Imaging documentation personally reviewed by record FUNCTIONAL STATUS: Premorbid: Independent with all activities of daily life as well as mobility up until 1 month ago when began to use wheelchair and walker On Admission: Min-Mod assist for functional transfers, total assist for dressing, min assist toileting GOALS: Contact-guard for ambulation with RW household distances, Mod-I for grooming and upper body dressing, Contact-guard for lower body dressing, Mod-I for bed mobility, medical optimization, family training, assess for DME needs. ASSESSMENT:73-year-old M with past medical history of multiple myeloma, endocarditis who presents status post dehydration, fever, weakness due to endocarditis. PLAN: 1. Rehab: PT, OT, assess for DME needs 2. Neuro: avoid deliriogenic meds, stable 3. cardiac: recent dx of Strep Infantarius Endocarditis, per ID recs, s/p IV abx, last dose of Ceftriaxone 01/05/19- will consult, c/u Eliquis -pmh PM with 3rd degree AVB with CHF- c./u beta-beatrice and diuretic- medicine consulted to follow 4. Resp: pmh COPD with interstitial lung disease on recent CT, c/u breathing treatments and supplemental 02, monitor for worsening infection 5. Heme/onc: pmh multiple myeloma, chemo on hold- patient leuokopenic, anemic, and low platelets- c/u to monitor- per medicine recs, Neupogen if wbc <1.5 -s/p 1 unit prbc 01/06/19 -c/u Acyclovir 6. Renal: pmh CKD with recent DUSTIN while getting diuresed, avoid nephrotoxic agents 7. Skin: Balmex to sacrum, turn q2h 9. Psch: depression c/u ZOloft 10. GI ppx: protonix 11. DVT ppx: on eliquis 12. Dispo: TBD POST ADMISSION PHYSICIAN EVALUATION: Medical and functional status: Description of medical status, medical assessment: As above. Rehabilitation diagnosis and current and prior cold morbid medical conditions as above. Risk of complications and plans to mitigate them as above. Description of functional status current status is as above. Prior status as above. Status compared to preadmission: There are no clinically significant differences between the patient's current status and the information described on the preadmission screening document. Treatment plan anticipated: Treatment plan is as described above. Required disciplines including physical therapy, occupational therapy, others as noted above Intensity of services: 3 hours a day, 6 days a week. Special considerations: There are no specific special or safety considerations that would likely preclude immediate implementation of an intensive rehabilitation program or subsequently influence the plan of care ATTESTATION: Considering all the information above, it is my best judgment that this patient requires intensive rehabilitation therapy as described above and an inpatient hospital environment due to the complexity of nursing, medical, and rehabilitation needs required by the patient. Furthermore, this patient can reasonably be expected to participate in an benefit from an inpatient rehabilitation stay with an interdisciplinary team approach to the delivery of rehabilitation care under the direction and supervision of rehabilitation physician. PROGNOSIS: good ESTIMATED LENGTH OF STAY:18-21days. PROJECTED DISCHARGE DESTINATION: Home with family support and any durable m edical equipment required to increase functional safety and mobility TIME SPENT COUNSELING AND COORDINATING INITIAL CARE: Greater than 70 minutes. Vital Signs Vital Sign - Last 24 Hours 01/06/19 16:30 Temp 97.0 Pulse 72 Resp 18 B/P (MAP) 120/81 (94) Pulse Ox 97 O2 Flow Rate 2.0 Home Medications Scheduled Acyclovir (Acyclovir) 400 Mg Tablet, 400 MG PO BID, (Reported) Allopurinol (Zyloprim) 300 Mg Tablet, 300 MG PO DAILY, (Reported) Apixaban (Eliquis) 5 Mg Tab, 5 MG PO BID, (Reported) Aspirin (Aspirin EC) 81 Mg Tab, 81 MG PO QPM, (Reported) Atorvastatin Calcium (Atorvastatin Calcium) 20 Mg Tab, 20 MG PO QHS, (Reported) Ceftriaxone Sodium (Ceftriaxone) 1 Gm Vial, 2 GM IV DAILY, (Reported) SPOUSE ADMINISTERS THROUGH PORT DAILY Cholecalciferol (Vitamin D3) (Vitamin D3) 2,000 Unit Capsule, 2,000 UNIT PO DAILY, (Reported) Dexamethasone (Dexamethasone) 4 Mg Tablet, 20 MG PO Q2WK, (Reported) TAKES ON THE WEDNESDAY BEFORE CHEMO ([id number]) Famotidine (Famotidine) 20 Mg Tab, 20 MG PO DAILY, (Reported) Metoprolol Succinate (Metoprolol Succinate) 25 Mg Tab.er.24h, 25 MG PO BID, (Reported) Montelukast Sodium (Montelukast Sodium) 10 Mg Tablet, 10 MG PO Q2WK, (Reported) TAKES PRIOR TO CHEMO EVERY 2 WEEKS Sertraline Hcl (Sertraline HCl) 50 Mg Tab, 100 MG PO DAILY, (Reported) Tamsulosin HCl (Flomax) 0.4 Mg Cap, 0.4 MG PO QHS, (Reported) Tiotropium [place] (Spiriva Respimat) 4 Gm Mist.inhal, 2 PUFFS INH DAILY, (Reported) Zinc Oxide (Boudreauxs) 16% Oint...g., 1 OZ TOP TID Scheduled PRN Acetaminophen (Acetaminophen) 325 Mg Tab, 650 MG PO Q4H PRN for PAIN, (Reported) Albuterol Sulfate (Ventolin Hfa) 18 Gm Hfa.aer.ad, 2 PUFF INH Q4H PRN for SHORTNESS OF BREATH, (Reported) Ipratropium/Albuterol Sulfate (Iprat-Albut 0.5-3(2.5) mg/3 ml) 3 Ml Ampul.neb, 3 ML NEB Q6H PRN for SOB/WHEEZING Allergies Coded Allergies: No Known Allergies (Unverified , 11/16/18) A-FIB/CHADSVASC A-FIB History Current/History of A-Fib/PAF?: No LAXMI LYNN MD January 06, 2019 17:37
[2019-01-06] MEDS ORDERED: BISACODYL 10 MG SUPP PR PRN (17:45)
[2019-01-06] MEDS ORDERED: ONDANSETRON 4 MG TAB (S0181) PO PRN (17:45)
[2019-01-06] MEDS ORDERED: MAALOX 30 ML SUSP *UDC PO PRN (17:45)
[2019-01-06] MEDS ORDERED: ALBUTEROL 90 MCG/ACT 8GM HFA INHALER INH PRN (18:00)
[2019-01-06] MEDS: SODIUM CHLORIDE 0.9% INJ 10 ML SYR IV PRN (18:29)
[2019-01-06 20:00] VITALS: BP 123/59
[2019-01-06] MEDS: IPRATROPIUM 0.5MG/ALBUTEROL 2.5MG INH SOL UD 3ML (DUONEB)(J7620) NEB SCH (20:35)
[2019-01-06] MEDS: ACYCLOVIR 200 MG CAPSULE PO SCH (20:50)
[2019-01-06] MEDS: ASPIRIN 81 MG CHEW TABLET PO SCH (20:50)
[2019-01-06] MEDS: TAMSULOSIN 0.4 MG CAP PO SCH (20:50)
[2019-01-06] MEDS: APIXABAN 5 MG TAB (ELIQUIS) PO SCH (20:51)
[2019-01-06] MEDS: ATORVASTATIN 20 MG TAB PO SCH (20:51)
[2019-01-06] MEDS: BOUDREAUX'S BUTT PASTE TOP SCH (20:51)
[2019-01-06] MEDS: POTASSIUM CHLORIDE 10 MEQ SR TABLET PO SCH (20:51)
[2019-01-06] MEDS ORDERED: SENNA 8.6 MG TAB (SENOKOT) PO SCH (21:00)
[2019-01-06] MEDS ORDERED: SENOKOT S TAB PO SCH (21:00)
[2019-01-07 06:00] VITALS: BP 133/66
[2019-01-07 07:13] LABS: BASO % 0.2 % (0.0-1.0); EOS % 0.5 % (0.0-3.0); HEMATOCRIT 26.6 % (42.0-52.0); HEMOGLOBIN 8.3 g/dl (13.5-17.5); LYMPH # 0.5 10^3/uL (1.5-4.5); LYMPH % 12.3 % (24.0-44.0); MEAN CORPUSCULAR HEMOGLOBIN 27.9 pg (27.0-33.0); MEAN CORPUSCULAR HGB CONC 31.2 g/dl (32.0-36.5); MEAN CORPUSCULAR VOLUME 89.6 fl (80.0-96.0); MONO # 0.6 10^3/uL (0.0-0.8); MONO % 13.9 % (0.0-5.0); NEUTROPHILS % 71.7 % (36.0-66.0); RED BLOOD COUNT 2.97 10^6/uL (4.30-6.10); WHITE BLOOD COUNT 4.2 10^3/uL (4.0-10.0)
[2019-01-07] MEDS: IPRATROPIUM 0.5MG/ALBUTEROL 2.5MG INH SOL UD 3ML (DUONEB)(J7620) NEB SCH ×3 (07:15→20:53)
[2019-01-07 07:16] LABS: PLATELET COUNT, AUTOMATED 74 10^3/uL (150-450)
[2019-01-07 07:37] LABS: ALBUMIN 2.1 GM/DL (3.2-5.2); BILIRUBIN,TOTAL 0.5 MG/DL (0.2-1.0); CALCIUM LEVEL 8.2 MG/DL (8.8-10.2); CREATININE FOR GFR 1.77 MG/DL (0.70-1.30); GLOMERULAR FILTRATION RATE 40.5 (>42); POTASSIUM SERUM 3.8 MEQ/L (3.5-5.1); TOTAL PROTEIN 5.7 GM/DL (6.4-8.2)
[2019-01-07] MEDS: ACYCLOVIR 200 MG CAPSULE PO SCH ×2 (08:10→19:59)
[2019-01-07] MEDS: SERTRALINE 100 MG TAB PO SCH (08:10)
[2019-01-07] MEDS: POTASSIUM CHLORIDE 10 MEQ SR TABLET PO SCH ×2 (08:10→19:59)
[2019-01-07] MEDS: ALLOPURINOL 300 MG TAB PO SCH (08:11)
[2019-01-07] MEDS: SODIUM CHLORIDE 0.9% INJ 10 ML SYR IV SCH (08:11)
[2019-01-07] MEDS: METOPROLOL SUCC *XL* 25MG TAB (TopROL *XL*) PO SCH (08:11)
[2019-01-07] MEDS: FAMOTIDINE 20 MG TAB PO SCH (08:12)
[2019-01-07] MEDS: BOUDREAUX'S BUTT PASTE TOP SCH ×3 (08:12→20:00)
[2019-01-07] MEDS: APIXABAN 5 MG TAB (ELIQUIS) PO SCH ×2 (08:12→20:00)
--- NOTE | 2019-01-07 11:49 | IPNPDOC ---
Subjective Date Seen The patient was seen on 01/07/19. Subjective Chief Complaint/HPI Patient is a 73-year-old male, primary history significant for atrial flutter, multiple myeloma, large B-cell lymphoma, COPD, DVT, CKD 3, admitted and treated for neutropenic fever. Patient was also found to have strep endocarditis. He was treated with a 4 week course of antibiotic therapy. During hospitalization he was also found to have acute diastolic heart failure and worsening dyspnea. Repeat echocardiogram showed persisting mobile echodens ity suggesting presence of vegetation been unchanged appearance from his prior study. He was discharged to rehabilitation unit for mobilization and strengthening due to physical deficits noted with prolonged hospitalization. Events since last encounter Up to chair at bedside, no complaints at this time, some SOB but improved. Denies chest pain, chills, fever. Objective Physical Examination Other physical findings GENERAL: NAD SKIN : Stage II sacral ulcer HEENT: Atraumatic, normocephalic, PERRL, moist mucous membrane CARDIOVASCULAR: Regular rate and rhythm, S1S2, no JVD, no edema, distal pulses + and palpable RESP: CTAB, no accessory muscle use noted ABDOMEN: BS+ non distended non tender MS: no joint deformities NEURO: Alert and oriented x 3, CN2-12 grossly intact PSYCH: no anxiety or agitation, appropriate mood and affect. A-FIB/CHADSVASC A-FIB History Current/History of A-Fib/PAF?: Yes Current Oral Anticoagulant The: Yes Treatment Treatment ordered: Apixaban Assessment /Plan Assessment Atrial fibrillation -Paroxysmal and currently in sinus rhythm -Rate is controlled, continue anticoagulation therapy Acute on chronic diastolic heart failure -Underlying chronic kidney disease stage III -Nephrology on board managing diuresis given reduced renal clearance -Follow recommendations for patient input -Fluid restriction, strict input and output Multiple myeloma -anemia-s/p transfusion PRBC -Chemotherapy on hold due to poor tolerance and leukopenia -neupogen if WBC<1.5 Strep endocarditis -Completed antibiotic therapy and the guidance of infectious disease specialist with ceftriaxone for 4 weeks COPD - currently exacerbated with acute diastolic heart failure - continue scheduled breathing treatments with supplemental oxygen -. Monitor O2 saturations periodically to keep greater than 94% Debility -Currently in rehabilitation for mobilization and strengthening -Management by primary team Deep tissue pressure injury -Dressing in place -Discussed with patient -Frequent offloading when able DVT prophylaxis -Fully anticoagulated with Eliquis Disposition: At the discretion of primary team based on patient's response to therapy Plan/VTE VTE Prophylaxis Ordered?: Yes VS, [facility] Signs/I&O Vital Signs Date Time Temp Pulse Resp B/P (MAP) Pulse Ox O2 Delivery O2 Flow Rate FiO2 01/07/19 08:11 76 133/66 01/07/19 08:00 2.0 01/07/19 06:00 98.2 18 93 I&O- Last 24 Hours up to 6 AM 01/07/19 06:00 Intake Total 420 ml Output Total 250 ml Balance 170 ml Laboratory Data 24H LABS Laboratory Tests 2 01/07/19 07:02: Immature Granulocyte % (Auto) 1.4, White Blood Count 4.2, Red Blood Count 2.97L, Hemoglobin 8.3L, Hematocrit 26.6L, Mean Corpuscular Volume 89.6, Mean Corpuscular Hemoglobin 27.9, Mean Corpuscular Hemoglobin Concent 31.2L, Red Cell Distribution Width 23.6H, Platelet Count 74L, Neutrophils (%) (Auto) 71.7H, Lymphocytes (%) (Auto) 12.3L, Monocytes (%) (Auto) 13.9H, Eosinophils (%) (Auto) 0.5, Basophils (%) (Auto) 0.2, Neutrophils # (Auto) 3.0, Lymphocytes # (Auto) 0.5L, Monocytes # (Auto) 0.6, Eosinophils # (Auto) 0.0, Basophils # (Auto) 0.0, Nucleated Red Blood Cells % (auto) 2.6H, Immature Platelet Fraction 4.7, Anion Gap 9, Glomerular Filtration Rate 40.5L, Blood Urea Nitrogen 38H, Creatinine 1.77H, Sodium Level 141, Potassium Level 3.8, Chloride Level 111H, Carbon Dioxide Level 21, Calcium Level 8.2L, Aspartate Amino Transf (AST/SGOT) 23, Alanine Aminotransferase (ALT/SGPT) 31, Alkaline Phosphatase 79, Total Bilirubin 0.5, Total Protein 5.7L, Albumin 2.1L, Albumin/Globulin Ratio 0.58L CBC/BMP Laboratory Tests 01/07/19 07:02 Red Blood Count 2.97 L, Mean Corpuscular Volume 89.6, Mean Corpuscular Hemoglobin 27.9, Mean Corpuscular Hemoglobin Concent 31.2 L, Red Cell Distribution Width 23.6 H, Neutrophils (%) (Auto) 71.7 H, Lymphocytes (%) (Auto) 12.3 L, Monocytes (%) (Auto) 13.9 H, Eosinophils (%) (Auto) 0.5, Basophils (%) (Auto) 0.2, Neutrophils # (Auto) 3.0, Lymphocytes # (Auto) 0.5 L, Monocytes # (Auto) 0.6, Eosinophils # (Auto) 0.0, Basophils # (Auto) 0.0, Calcium Level 8.2 L, Aspartate Amino Transf (AST/SGOT) 23, Alanine Aminotransferase (ALT/SGPT) 31, Alkaline Phosphatase 79, Total Bilirubin 0.5, Total Protein 5.7 L, Albumin 2.1 L MOISES MATSON [facility] January 07, 2019 11:49
--- NOTE | 2019-01-07 13:48 | IPN ---
DATE OF VISIT: 01/07/2019 Mr. Maza is seen this morning on his bedside. He was transferred to acute rehab unit yesterday. He has known history of stage III of chronic kidney disease. He developed congestive heart failure and required almost 10 liters of oxygen. Over last week or 10 days, we have diuresed him aggressively and his volume status has improved. He was still on oxygen down to 2 liters yesterday, but today he is oxygenating well on room air. His diuretics have been stopped for now. He also had acute renal failure, which has improved and stabilized at about baseline with serum creatinine between 1.6-1.9 mg/dL. This morning he is sitting in the wheelchair and is getting ready to start his physical therapy in acute rehab floor. His dyspnea has improved and he is not requiring oxygen anymore. He denies any chest pain, fever, chills, nausea or vomiting. On physical exam, temperature 98.2 degrees Fahrenheit, heart rate 76 per minute and respiratory rate 18 per minute. Blood pressure 133/60 mmHg and oxygen saturation 93%. He is currently not using any oxygen. His head is atraumatic. Neck is supple and there is no jugular venous distention (JVD). No oral thrush or ulcers noted. Ears, nose, and throat are unremarkable. Heart sounds are regular and lungs sound clear to auscultation bilaterally. Abdomen soft and nontender, and bowel sounds are normal. Extremities have no cyanosis or clubbing. He has some edema on his right hand, which is due to IVs infiltrated. He also has small area of ecchymosis on his right wrist. Left hand no edema. There is no edema on his legs. Neurologically, he is awake, alert and at his baseline mentation. Today's labs show sodium 141, potassium 3.8, CO2 21, BUN 38 and creatinine 1.77. Total protein 5.7 and albumin 2.1. WBC count is 4.2, hemoglobin 8.3 and hematocrit 26.6. Platelets are 74,000. PROBLEM S: 1. Congestive heart failure. At present, his volume status is reasonably well-compensated and he is oxygenating up to 95% on room air. He was initially diuresed with Lasix drip. However, currently his diuretic is on hold and we will use it only on as needed basis. He should be weighed daily. He should continue with fluid restriction of 1500 mL per day. 2. Chronic kidney disease. His kidney function is stable at about baseline with serum creatinine between 1.6-1.9 mg/dL. Electrolytes are within normal range. 3. Anemia. Patient has pancytopenia and his anemia was much worse with hemoglobin down to 7.3 yesterday. He was transfused 1 unit of packed red blood cell (RBC) and anemia has improved. We will watch him over next few days and see how he does. 4. Generalized weakness and deconditioning. Patient is now doing acute rehab and is feeling much better and stronger today. 5. Protein calorie malnutrition. He has not been eating well due to hypoxemia and congestive heart failure. Now his volume status has improved. He should be encouraged for high-protein intake.
[2019-01-07 14:00] VITALS: BP 99/61
[2019-01-07] MEDS: ASPIRIN 81 MG CHEW TABLET PO SCH (19:58)
[2019-01-07] MEDS: TAMSULOSIN 0.4 MG CAP PO SCH (20:00)
[2019-01-07] MEDS: ATORVASTATIN 20 MG TAB PO SCH (20:00)
[2019-01-07 20:06] VITALS: BP 128/59
[2019-01-07] MEDS: SODIUM CHLORIDE 0.9% INJ 10 ML SYR IV PRN (22:58)
[2019-01-08 06:00] VITALS: BP 104/59
[2019-01-08] MEDS: IPRATROPIUM 0.5MG/ALBUTEROL 2.5MG INH SOL UD 3ML (DUONEB)(J7620) NEB SCH ×3 (07:17→19:33)
[2019-01-08 07:33] LABS: APPEARANCE, URINE HAZY (CLEAR); BACTERIA, URINE AUTO 1+ (NEGATIVE); BILIRUBIN, URINE AUTO NEGATIVE (NEGATIVE); BLOOD, URINE BLOOD 2+ (NEGATIVE); COLOR, URINE YELLOW (YELLOW); GLUCOSE, URINE (UA) AUTO NEGATIVE (NEGATIVE); KETONE, URINE AUTO NEGATIVE (NEGATIVE); LEUKOCYTE ESTERASE, URINE AUTO 1+ (NEGATIVE); MUCUS, URINE SMALL (NEGATIVE); NITRITE, URINE AUTO NEGATIVE (NEGATIVE); PROTEIN, URINE AUTO 2+ mg/dL (NEGATIVE); RBC, URINE AUTO 39 /HPF (0-3); SPECIFIC GRAVITY URINE AUTO 1.018 (1.002-1.035); SQUAMOUS EPITHELIAL CELL UR AU 7 /HPF (0-6); UROBILINOGEN, URINE AUTO 0.2 mg/dL (0.0-2.0); WBC, URINE AUTO 61 /HPF (0-3)
[2019-01-08] MEDS: APIXABAN 5 MG TAB (ELIQUIS) PO SCH ×2 (08:05→20:13)
[2019-01-08] MEDS: METOPROLOL SUCC *XL* 25MG TAB (TopROL *XL*) PO SCH (08:06)
[2019-01-08] MEDS: POTASSIUM CHLORIDE 10 MEQ SR TABLET PO SCH (08:06)
[2019-01-08] MEDS: SERTRALINE 100 MG TAB PO SCH (08:06)
[2019-01-08] MEDS: ACYCLOVIR 200 MG CAPSULE PO SCH ×2 (08:06→20:13)
[2019-01-08] MEDS: FAMOTIDINE 20 MG TAB PO SCH (08:06)
[2019-01-08] MEDS: ALLOPURINOL 300 MG TAB PO SCH (08:06)
[2019-01-08] MEDS: SODIUM CHLORIDE 0.9% INJ 10 ML SYR IV SCH (08:07)
[2019-01-08] MEDS: BOUDREAUX'S BUTT PASTE TOP SCH ×3 (08:13→20:14)
--- NOTE | 2019-01-08 12:18 | IPNPDOC ---
Subjective Date Seen The patient was seen on 01/08/19. Subjective Chief Complaint/HPI Patient is a 73-year-old male, primary history significant for atrial flutter, multiple myeloma, large B-cell lymphoma, COPD, DVT, CKD 3, admitted and treated for neutropenic fever. Patient was also found to have strep endocarditis. He was treated with a 4 week course of antibiotic therapy. During hospitalization he was also found to have acute diastolic heart failure and worsening dyspnea. Repeat echocardiogram showed persisting mobile echodensity suggesting presence of vegetation been unchanged appearance from his prior study. He was discharged to rehabilitation unit for mobilization and strengthening due to physical deficits noted with prolonged hospitalization. Events since last encounter Seen this morning after therapy,patient is in chair by bedside, out of breath, therapy has been very tasking for him. Denies any discomfort, states he is usually winded with very minimal activity Objective Physical Examination General Exam: Positive: Alert, Cooperative, No Acute Distress Eye Exam: Positive: PERRLA, EOMI ENT Exam: Positive: Atraumatic, Mucous membr. moist/pink, Pinna Normal Neck Exam: Positive: Supple; Negative: JVD, thyromegaly Chest Exam: Positive: Clear to auscultation, Normal air movement Heart Exam: Positive: Rate Normal, Regular Rhythm Telemetry: Positive: Sinus Abdomen Exam: Positive: Normal bowel sounds, Soft; Negative: Tenderness Extremity Exam: Negative: Clubbing, Cyanosis, Edema Skin Exam: Positive: Nl turgor and temperature, Other skin issue (sacral decub) Neuro Exam: Positive: Normal Speech, Cranial Nerves 3-12 NL Psych Exam: Positive: Mental status NL, Memory Intact, Oriented x 3 A-FIB/CHADSVASC A-FIB History Current/History of A-Fib/PAF?: Yes Current Oral Anticoagulant The: Yes Assessment /Plan Assessment Atrial fibrillation -Paroxysmal and currently in sinus rhythm -Rate is controlled -Continued on apixaban for anticoagulation Acute on chronic diastolic heart failure -Currently compensated -Underlying chronic kidney disease stage III -Nephrology on board managing diuresis given reduced renal clearance -Follow recommendations for patient input -Fluid restriction, strict input and output Multiple myeloma -anemia -Last hemoglobin 8.3 --s/p transfusion PRBC -Chemotherapy on hold due to poor tolerance and leukopenia -neupogen if WBC<1.5 Strep endocarditis -Completed antibiotic therapy and the guidance of infectious disease specialist with ceftriaxone for 4 weeks COPD - Stable - continue scheduled breathing treatments with supplemental oxygen -. Monitor O2 saturations periodically to keep greater than 94% Debility -Currently in rehabilitation for mobilization and strengthening -Management by primary team Deep tissue pressure injury -Dressing in place, intact -Discussed with patient -Frequent offloading when able DVT prophylaxis -Fully anticoagulated with Eliquis Disposition: At the discretion of primary team based on patient's response to therapy Plan/VTE VTE Prophylaxis Ordered?: Yes VS, I&O, 24H, Fishbone Vital Signs/I&O Vital Signs Date Time Temp Pulse Resp B/P (MAP) Pulse Ox O2 Delivery O2 Flow Rate FiO2 01/08/19 08:06 69 104/59 01/08/19 06:00 97.5 18 92 01/07/19 08:00 2.0 I&O- Last 24 Hours up to 6 AM 01/08/19 06:00 Intake Total 1200 ml Balance 1200 ml Laboratory Data 24H LABS Laboratory Tests 2 01/08/19 06:20: Urine Appearance HAZY, Urine Color YELLOW, Urine pH 5.0, Urine Specific [place] 1.018, Urine Protein 2+H, Urine Glucose (UA) NEGATIVE, Urine Ketones NEGATIVE, Urine Urobilinogen 0.2, Urine Bilirubin NEGATIVE, Urine Leukocyte Esterase 1+H, Urine Blood 2+H, Urine Nitrite NEGATIVE, Urine WBC (Auto) 61H, Urine RBC (Auto) 39H, Urine Hyaline Casts (Auto) 204, Urine Bacteria (Auto) 1+H, Urine Squamous Epithelial Cells 7, Urine Mucus (Auto) SMALL, Urine Sperm (Auto) Microbiology Microbiology 01/08/19 Urine Culture, Received Pending [facility] January 08, 2019 12:18
[2019-01-08 14:00] VITALS: BP 104/56
[2019-01-08 20:00] VITALS: BP 114/69
[2019-01-08] MEDS: ATORVASTATIN 20 MG TAB PO SCH (20:13)
[2019-01-08] MEDS: ASPIRIN 81 MG CHEW TABLET PO SCH (20:13)
[2019-01-08] MEDS: TAMSULOSIN 0.4 MG CAP PO SCH (20:13)
--- NOTE | 2019-01-08 21:12 | IPN ---
DATE: 01/08/2019 The patient is seen and examined this morning sitting out of bed to the chair in the rehabilitation unit. He complains of dyspnea with minimal exertion. Otherwise, denies any new complaints. Remains on room air. PHYSICAL EXAMINATION: Temperature 97.5, pulse 69, respiratory rate 18, blood pressure 104/59, saturating 92 to 93% on room air. Intake yesterday was 1140. His urine output was not recorded. Three voids were recorded. Weight on the bed scale today is 103.5 kg. GENERAL: The patient is seen sitting out of bed to the chair. Elderly male. No acute distress. Seen on room air. Head is atraumatic. Neck is supple. Jugular veins are not elevated. Ears, nose and throat are unremarkable. Heart sounds are regular. Lungs show some faint crackles in the right base, otherwise clear to auscultation. Abdomen is soft and nontender. There are bowel sounds. Extremities show puffy right hand and left ankle edema. Neurologic: He is awake, alert and at baseline mentation. LABORATORIES: White count 4.2, hemoglobin 8.3, sodium 141, potassium 3.8, BUN 38, creatinine 1.7. INPATIENT MEDICATIONS: Reviewed by myself. I discontinued the potassium supplementation. His remainder of medications are unchanged from prior. PROBLEMS: 1. Chronic kidney disease stage III. Renal function has recovered towards his usual baseline. He recently had an acute kidney injury in the setting of decompensated congestive heart failure (CHF). It has improved with diuresis and correction of the volume status. His electrolytes are acceptable. I am discontinuing his standing potassium supplement. 2. Pancytopenia. The patient follows with hematology for the same. He was transfused 1 unit of packed red blood cells and hemoglobin is up to 8.3. I would transfuse again for any hemoglobin less than 8. 3. Diastolic congestive heart failure (CHF). Volume status has improved. He is status post Lasix drip. He is now on room air. He will receive diuretics on an as needed basis, and we will continue to keep an eye on his respiratory and volume status.
[2019-01-09] MEDS: IPRATROPIUM 0.5MG/ALBUTEROL 2.5MG INH SOL UD 3ML (DUONEB)(J7620) NEB SCH ×4 (00:02→19:35)
[2019-01-09 06:00] VITALS: BP 102/63
[2019-01-09 06:24] LABS: HEMATOCRIT 25.9 % (42.0-52.0); HEMOGLOBIN 8.1 g/dl (13.5-17.5); MEAN CORPUSCULAR HEMOGLOBIN 29.1 pg (27.0-33.0); MEAN CORPUSCULAR HGB CONC 31.3 g/dl (32.0-36.5); MEAN CORPUSCULAR VOLUME 93.2 fl (80.0-96.0); RED BLOOD COUNT 2.78 10^6/uL (4.30-6.10); WHITE BLOOD COUNT 4.7 10^3/uL (4.0-10.0)
[2019-01-09 06:29] LABS: PLATELET COUNT, AUTOMATED 61 10^3/uL (150-450)
[2019-01-09 06:53] LABS: ALBUMIN 2.3 GM/DL (3.2-5.2); BILIRUBIN,TOTAL 0.4 MG/DL (0.2-1.0); CALCIUM LEVEL 8.7 MG/DL (8.8-10.2); CREATININE FOR GFR 2.03 MG/DL (0.70-1.30); GLOMERULAR FILTRATION RATE 34.5 (>42); MAGNESIUM LEVEL 1.9 MG/DL (1.8-2.4); TOTAL PROTEIN 5.4 GM/DL (6.4-8.2)
[2019-01-09] MEDS: ACYCLOVIR 200 MG CAPSULE PO SCH ×2 (08:37→21:07)
[2019-01-09] MEDS: METOPROLOL SUCC *XL* 25MG TAB (TopROL *XL*) PO SCH (08:38)
[2019-01-09] MEDS: APIXABAN 5 MG TAB (ELIQUIS) PO SCH ×2 (08:38→21:06)
[2019-01-09] MEDS: ALLOPURINOL 300 MG TAB PO SCH (08:38)
[2019-01-09] MEDS: SERTRALINE 100 MG TAB PO SCH (08:38)
[2019-01-09] MEDS: SODIUM CHLORIDE 0.9% INJ 10 ML SYR IV SCH (08:38)
[2019-01-09] MEDS: FAMOTIDINE 20 MG TAB PO SCH (08:38)
--- NOTE | 2019-01-09 08:42 | REP ---
CHEST, TWO VIEWS: Two views of the chest were performed and compared to the prior study of 12/31/2018 as well as other prior exams. No definite acute infiltrate is seen. There is mild cardiomegaly. Mediastinal silhouette is unchanged. Right dual-lead pacemaker is again noted. There is a left central venous catheter with the tip at the junction of the superior vena cava and right atrium. There are mild degenerative changes of the spine. IMPRESSION: No acute infiltrate. Electronically Signed by Joshua Saab MD 01/09/2019 06:37 P
[2019-01-09] MEDS: BOUDREAUX'S BUTT PASTE TOP SCH ×2 (09:20→16:00)
--- NOTE | 2019-01-09 12:43 | IPN ---
DATE OF SERVICE: 01/09/2019 SUBJECTIVE: The patient is seen and examined this morning in the rehabilitation unit. He complains of dyspnea on exertion. He reports an episode of watery diarrhea overnight. He otherwise denies any new complaints or issues. VITAL SIGNS: Temperature 97.1, pulse 82, respiratory rate 18, blood pressure 102/63, saturating 94% on room air. Intake yesterday was 1260. Urine output yesterday was not recorded. Weight in the bed scale today is 105 kg, which is increased from prior. GENERAL: The patient is seen sitting in bed, head of bed elevated. Awake, alert, and oriented. Elderly male. No acute distress. Seen on room air. Head is atraumatic. Neck is supple. Jugular veins are not elevated. Ears, nose, and throat are unremarkable. Heart sounds are regular. S1, S2. There is left ankle edema 1+. Lungs show symmetric air entry bilaterally. No rales or wheeze. Abdomen is soft and nontender. There are bowel sounds. Extremities show a puffy right hand and left ankle edema. NEUROLOGIC: He is at baseline mentation, conversational, and cooperative with physical examination. LABORATORIES: White count 4.7, hemoglobin 8.1, platelets 61. Sodium 140, potassium 4.0, bicarbonate 16, BUN 37, creatinine 2.0, BNP 840. Chest x-ray 01/08/2019 shows no infiltrates, and there is mild cardiomegaly. INPATIENT MEDICATIONS: Reviewed by me. His Toprol XL dose was decreased to 12.5 mg by mouth daily. His potassium was discontinued. He was started on bicarbonate 325 mg by mouth twice a day. His remainder of medications are unchanged from prior. PROBLEMS: 1. Chronic kidney disease (CKD) stage III with a baseline creatinine in the mid 1s to 2. Renal function today is slightly worse than 2 days prior, although he has not had any significant change in volume status or medications. Would continue to hold standings diuretics at present, and he can receive them on an as-needed basis. Continue to intermittently monitor renal panel. 2. Diastolic congestive heart failure. Volume status presently acceptable. Receiving diuretics as needed. I see his daily weight has slightly increased. He remains on room air. Chest x-ray did not show any infiltrate. His brain natriuretic peptide (BNP) is overall improved from prior. His volume status will be reassessed daily, and we will give diuretic as needed. 3. Pancytopenia. The patient follows with hematology outpatient for the same. Hemoglobin today is 8.1, and I would suggest to transfuse another unit of packed red blood cells. That may help with his dyspnea on exertion. 4. Non-anion gap metabolic acidosis. It is mild and likely secondary to a bout of diarrhea overnight and chronic kidney disease. We will start him on low-dose bicarbonate supplementation. 5. Atrial fibrillation. He is rate controlled. His blood pressures are soft, and the primary team has already appropriately reduced the metoprolol dosage. He continues on Eliquis for anticoagulation.
[2019-01-09 14:00] VITALS: BP 132/71
--- NOTE | 2019-01-09 14:36 | IPNPDOC ---
Subjective Date Seen The patient was seen on 01/09/19. Subjective Chief Complaint/HPI Patient is a 73-year-old male, primary history significant for atrial flutter, multiple myeloma, large B-cell lymphoma, COPD, DVT, CKD 3, admitted and treated for neutropenic fever. Patient was also found to have strep endocarditis. He was treated with a 4 week course of antibiotic therapy. During hospitalization he was also found to have acute diastolic heart failure and worsening dyspnea. Repeat echocardiogram showed persisting mobile echodens ity suggesting presence of vegetation been unchanged appearance from his prior study. He was discharged to rehabilitation unit for mobilization and strengthening due to physical deficits noted with prolonged hospitalization. Events since last encounter Reports persisting weakness and SOB with minimal exertion. CBC results discussed with him, he is unwilling to be transfused more blood products . Denies chest pain, chills Objective Physical Examination General Exam: Positive: Alert, Cooperative, No Acute Distress Eye Exam: Positive: PERRLA, EOMI ENT Exam: Positive: Atraumatic, Mucous membr. moist/pink, Pinna Normal Neck Exam: Positive: Supple; Negative: JVD, thyromegaly Chest Exam: Positive: Clear to auscultation, Normal air movement Heart Exam: Positive: Rate Normal, Regular Rhythm Telemetry: Positive: Sinus Abdomen Exam: Positive: Normal bowel sounds, Soft; Negative: Tenderness Extremity Exam: Negative: Clubbing, Cyanosis, Edema Skin Exam: Positive: Nl turgor and temperature, Other skin issue (sacral decub) Neuro Exam: Positive: Normal Speech, Cranial Nerves 3-12 NL Psych Exam: Positive: Mental status NL, Memory Intact, Oriented x 3 A-FIB/CHADSVASC A-FIB History Current/History of A-Fib/PAF?: Yes Current Oral Anticoagulant The: Yes Assessment /Plan Assessment Atrial Fibrillation -Paroxysmal in nature, maintaining sinus rhythm -continue metoprolol for rate control -Continued on apixaban for anticoagulation Acute on chronic diastolic heart failure -Currently compensated -Underlying chronic kidney disease stage III -Nephrology on board managing diuresis given reduced renal clearance -Follow recommendations for patient input -Fluid restriction, strict input and output Anemia -Hgb is 8.1 -S/P transfusion PRBC -Hgb is stable -patient however is very symptomatic with significant SOB with minimal exertion Multiple myeloma -Last hemoglobin 8.3 --s/p transfusion PRBC -Chemotherapy on hold due to poor tolerance and leukopenia -neupogen if WBC<1.5 CKD -creatinine has increased from 1.7 to 2.03 -he is borderline hypotensive given his BMI with anemia which may be contributing to hypoperfusion -avoid nephrotoxic agents Strep endocarditis -Completed antibiotic therapy and the guidance of infectious disease specialist with ceftriaxone for 4 weeks COPD - Stable - continue scheduled breathing treatments with supplemental oxygen -. Monitor O2 saturations periodically to keep greater than 94% Debility -Currently in rehabilitation for mobilization and strengthening -Management by primary team Deep tissue pressure injury -Dressing in place, intact -Discussed with patient -Frequent offloading when able DVT prophylaxis -Fully anticoagulated with Eliquis Disposition: At the discretion of primary team based on patient's response to therapy Plan/VTE VTE Prophylaxis Ordered?: Yes VS, I&O, 24H, Fishbone Vital Signs/I&O Vital Signs Date Time Temp Pulse Resp B/P (MAP) Pulse Ox O2 Delivery O2 Flow Rate FiO2 01/09/19 08:38 82 102/63 01/09/19 06:00 97.1 18 94 01/07/19 08:00 2.0 I&O- Last 24 Hours up to 6 AM 01/09/19 06:00 Intake Total 1200 ml Output Total 255 ml Balance 945 ml Laboratory Data 24H LABS Laboratory Tests 2 01/09/19 05:52: Nucleated Red Blood Cells % (auto) 1.5H, Immature Platelet Fraction 5.4, Anion Gap 10, Glomerular Filtration Rate 34.5L, Blood Urea Nitrogen 37H, Creatinine 2.03H, Sodium Level 140, Potassium Level 4.0, Chloride Level 114H, Carbon Dioxide Level 16L, Calcium Level 8.7L, Aspartate Amino Transf (AST/SGOT) 15, Alanine Aminotransferase (ALT/SGPT) 27, Alkaline Phosphatase 76, Total Bilirubin 0.4, Total Protein 5.4L, Albumin 2.3L, Magnesium Level 1.9, GK-Lxz-Y-Type Natriuretic Peptide 849H, Albumin/Globulin Ratio 0.74L CBC/BMP Laboratory Tests 01/09/19 05:52 Red Blood Count 2.78 L, Mean Corpuscular Volume 93.2, Mean Corpuscular Hemo globin 29.1, Mean Corpuscular Hemoglobin Concent 31.3 L, Red Cell Distribution Width 24.1 H, Calcium Level 8.7 L, Aspartate Amino Transf (AST/SGOT) 15, Alanine Aminotransferase (ALT/SGPT) 27, Alkaline Phosphatase 76, Total Bilirubin 0.4, Total Protein 5.4 L, Albumin 2.3 L Microbiology Microbiology 01/09/19 Blood Culture, Received Pending 01/09/19 Blood Culture, Received Pending 01/08/19 Urine Culture - Final, Complete [facility] January 09, 2019 14:36
[2019-01-09] MEDS ORDERED: FUROSEMIDE 40 MG/4 ML VIAL (J1940) IV ONE (16:00)
[2019-01-09] MEDS: SODIUM BICARBONATE 325 MG TAB PO SCH ×2 (16:18→21:07)
[2019-01-09] MEDS ORDERED: ACETAMINOPHEN TAB 650MG DOSE (2X325MG) PO ONE (16:30)
--- NOTE | 2019-01-09 17:12 | IPN ---
DATE: 01/06/2019 Mr. Maza seems to be doing better. He is back in rehabilitation and has exercised well today so he is complaining of increasing shortness of breath. He is waiting for a blood transfusion today. LABORATORY DATA: White count 4.7, hemoglobin 8.1, hematocrit 25.9, platelets 61. Sodium 140, potassium 4, chloride 114, bicarbonate 16, BUN 37, creatinine 2.03, glucose 112, calcium 8.7, BNP 849, CRP is pending. Two sets of blood cultures were ordered today and are pending. Temperature is 96.6, pulse 97, respiratory rate 20, blood pressure 132/71, oxygen saturation 94% on room air. HEART: Normal S1, S2, distant. No murmurs appreciated. LUNGS: Clear. No wheezes, rales or rhonchi. Mildly diminished at the bases. ABDOMEN: Morbidly obese, soft, nontender. EXTREMITIES: Trace edema at the ankles. IMPRESSION: 1. Streptococcus infantarius endocarditis, status post four weeks of IV Rocephin which was discontinued last Wednesday01/05/2019. The patient had surveillance blood cultures drawn today to monitor recurrence. 2. Diastolic congestive heart failure, has resolved. 3. Multiple myeloma with anemia. The patient is receiving blood transfusion today to alleviate symptoms of dyspnea. Last echocardiogram was done on 01/02/2019 and shows mild left ventricular hypertrophy, preserved left ventricular systolic function with grade 1 diastolic dysfunction and echodensity on the mitral valve with mild mitral insufficiency which was compared to a transesophageal echocardiogram done on 12/13/2018. PLAN patient will need followup with cardiology as an outpatient. His call center representative is Dr. Lobato. MYLES
[2019-01-09 20:40] VITALS: BP 125/69
[2019-01-09 20:55] VITALS: BP 133/70
[2019-01-09] MEDS: TAMSULOSIN 0.4 MG CAP PO SCH (21:06)
[2019-01-09] MEDS: ASPIRIN 81 MG CHEW TABLET PO SCH (21:06)
[2019-01-09] MEDS: ATORVASTATIN 20 MG TAB PO SCH (21:06)
[2019-01-09 21:43] VITALS: BP 132/79
[2019-01-09] MEDS: SODIUM CHLORIDE 0.9% INJ 10 ML SYR IV PRN (22:15)
[2019-01-09 23:20] VITALS: BP 108/64
[2019-01-10] MEDS: ACETAMINOPHEN TAB 650MG DOSE (2X325MG) PO PRN ×3 (01:33→13:43)
[2019-01-10 01:39] VITALS: BP_SYST 116; BP_SYST 120; BP_DIAS 60; BP_DIAS 69
[2019-01-10 06:20] VITALS: BP_SYST 70; BP_SYST 80; BP_DIAS 40; BP_DIAS 42
[2019-01-10 06:34] LABS: HEMATOCRIT 28.8 % (42.0-52.0); HEMOGLOBIN 9.1 g/dl (13.5-17.5); MEAN CORPUSCULAR HEMOGLOBIN 28.8 pg (27.0-33.0); MEAN CORPUSCULAR HGB CONC 31.6 g/dl (32.0-36.5); MEAN CORPUSCULAR VOLUME 91.1 fl (80.0-96.0); RED BLOOD COUNT 3.16 10^6/uL (4.30-6.10); WHITE BLOOD COUNT 4.6 10^3/uL (4.0-10.0)
[2019-01-10 06:35] LABS: PLATELET COUNT, AUTOMATED 63 10^3/uL (150-450)
[2019-01-10 07:00] LABS: ALBUMIN 2.3 GM/DL (3.2-5.2); BILIRUBIN,TOTAL 0.4 MG/DL (0.2-1.0); CALCIUM LEVEL 8.8 MG/DL (8.8-10.2); GLOMERULAR FILTRATION RATE 35.1 (>42); MAGNESIUM LEVEL 2.1 MG/DL (1.8-2.4); TOTAL PROTEIN 5.4 GM/DL (6.4-8.2)
[2019-01-10 07:01] VITALS: BP 90/42
[2019-01-10] MEDS: IPRATROPIUM 0.5MG/ALBUTEROL 2.5MG INH SOL UD 3ML (DUONEB)(J7620) NEB SCH ×3 (07:50→19:32)
[2019-01-10] MEDS: SODIUM CHLORIDE 0.9% INJ 10 ML SYR IV SCH (09:00)
[2019-01-10] MEDS: METOPROLOL SUCC *XL* 12.5MG PER 1/2 TAB (TopROL *XL*) PO SCH (09:00)
[2019-01-10] MEDS ORDERED: NS 1,000 ML IV SCH (10:00)
[2019-01-10] MEDS ORDERED: NS 500 ML IV SCH (10:28)
[2019-01-10] MEDS: SODIUM BICARBONATE 325 MG TAB PO SCH ×2 (10:38→22:03)
[2019-01-10] MEDS: ALLOPURINOL 300 MG TAB PO SCH (10:39)
[2019-01-10] MEDS: ACYCLOVIR 200 MG CAPSULE PO SCH ×2 (10:39→22:03)
[2019-01-10] MEDS: APIXABAN 5 MG TAB (ELIQUIS) PO SCH ×2 (10:39→22:03)
[2019-01-10] MEDS: FAMOTIDINE 20 MG TAB PO SCH (10:39)
--- NOTE | 2019-01-10 11:36 | IPN ---
DATE OF SERVICE: 01/10/2019 SUBJECTIVE: The patient is seen and examined this morning at the bedside. He complains of dizziness. He is in Trendelenburg position in bed with his legs elevated. He received 1 unit packed red blood cell yesterday, as per my discussion with the family medicine team. He also received a dose of Lasix after the blood transfusion. The patient was orthostatic this morning and is now receiving saline. There is continued dyspnea on exertion. VITAL SIGNS: Temperature 96.9, pulse 83, respiratory rate 18, blood pressure 90/42, saturating 93% on room air. Intake yesterday was 1740. Weight in the bed scale today is 104.9 kg. GENERAL: The patient is seen lying in Trendelenburg position in bed with legs elevated. He is awake, alert, and oriented to person, place, and situation. Elderly male. No acute distress. Neck is supple. Jugular veins are not elevated. Ears, nose, and throat are unremarkable. Heart sounds are irregular. S1, S2. There is no significant peripheral edema. Lungs show symmetric air entry. No rales or wheeze. Abdomen is soft and nontender. There are bowel sounds. NEUROLOGIC: He is at baseline mentation, conversational, and cooperative with physical examination. LABORATORIES: Hemoglobin 9.1. Sodium 140, potassium 4.0, bicarbonate 16, BUN 39, creatinine 2.0. INPATIENT MEDICATIONS: He is receiving 500 mL of normal saline this morning. He received 40 mg of intravenous (IV) Lasix yesterday after the packed red blood cell transfusion. He has very generous holding parameters with his Toprol XL. His remainder of medications are unchanged from prior. PROBLEMS: 1. Chronic kidney disease (CKD) stage III with a baseline creatinine of about 1.5 to 2. I would continue to hold diuretics at present. His volume status is compensated. His blood pressures are soft, and he is unlikely to tolerate bolus diuretics. Previously when he was in congestive heart failure, he received Lasix drip versus Lasix bolus. He is receiving 500 mL of saline infusion this morning for orthostasis. I suggest to continue monitoring his daily weights and would only use diuretics on an as-needed basis for hypervolemia in this patient with borderline blood pressures who is at risk for hypotension and acute kidney injury. 2. Diastolic congestive heart failure. Volume status is acceptable. He remains on room air. His chest x-ray did not show any infiltrate. We will give diuretics on an as-needed basis. 3. Pancytopenia. The patient follows up with hematology for the same. He received a unit of blood last night with improvement in his hemoglobin, and I would suggest to keep his hemoglobin around at least 9, as he does have significant dyspnea on exertion without signs of fluid overload. 4. Non-anion gap metabolic acidosis. Continue bicarbonate supplementation. 5. Atrial fibrillation. He is rate controlled. His blood pressures are soft. His metoprolol dose was already reduced, and I have added very generous holding parameters, as he has already had symptomatic hypotension with diuretic alone.
--- NOTE | 2019-01-10 11:37 | NUR ---
Pt demonstrates mild-moderate cognitive impairment w/ deficits in memory, executive function, safety awareness, awareness of current deficits & limitations, and goal-setting. Also per , pt loses track of conversation and has decreased awareness of personal hygiene for the past 2-3 months. Recommend cognitive tx targeting memory aids, safety awareness, identifications of goals, and education to pt & family regarding cognitive limitations & assistance needed. Addendum: 01/10/[address] [facility] Amended: Links added.
--- NOTE | 2019-01-10 11:58 | IPNPDOC ---
PM&R Progress Note DATE OF SERVICE: January 09, 2019 State Auditor Progress Note Subjective: Patient seen in therapy reporting he feels short of breath, but in good spirits. He is agreeable to getting a blood transfusion. REVIEW OF SYSTEMS: The following is a completed review of systems and has been reviewed. Review of systems otherwise unremarkable. PAIN: Patient self reports no pain EYES: Negative EARS, NOSE, & THROAT: Denies dysphagia or throat pain CARDIOVASCULAR: denies chest pain or palpitations PULMONARY: +shortness of breath at rest and on exertion GASTROINTESTINAL:+diarrhea (improved) GENITOURINARY: Negative for dysuria MUSCULOSKELETAL: generalized weakness NEUROLOGICAL: no tremor or seizure activity HEMATOLOGICAL: +leukopenia and anemia SKIN +sacral ulcer PSYCHIATRIC: Unremarkable All other review of systems found to be negative. PHYSICAL EXAMINATION: VITAL SIGNS: Please see below. GENERAL: Pleasant and cooperative. No acute distress. HEENT: PERRL. Extraocular movements intact. Clear conjunctiva CARDIOVASCULAR: Regular rate and rhythm. No murmurs, rubs, or gallops LUNGS: Clear to auscultation bilaterally. No wheezes. No rhonchi, exertional dyspnea ABDOMEN: Soft, nontender, mildly- distended. Positive bowel sounds. Normal active bowel sounds NEUROLOGICAL: Alert and oriented times three. Cranial nerves II through XII arthur sly intact. Sensation grossly intact EXTREMITIES:5-\5 strength bilateral upper extremities.4-/5 hip flexors, knee extensors, ankle DF, 0/5 EHL bilat LE no edema, scattered ecchymosis SKIN: sacral ulcer ASSESSMENT:73-year-old M with past medical history of multiple myeloma, endocarditis who presents status post dehydration, fever, weakness due to endocarditis. PLAN: 1. Rehab: PT, OT, assess for DME needs, dyspneic with exertion, able to ambulate short distances with RW 2. Neuro: avoid deliriogenic meds, stable 3. 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 Resp: pmh COPD with interstitial lung disease on recent CT, c/u breathing treatments and supplemental 02, monitor for worsening infection 5. Heme/onc: pmh multiple myeloma, chemo on hold- patient leuokopenic, anemic, and low platelets- c/u to monitor- per medicine recs, Neupogen if wbc <1.5 -s/p 1 unit prbc 01/06/19, medicine ordered 1 unit today as well -c/u Acyclovir 6. Renal: pmh CKD with recent DUSTIN while getting diuresed, avoid nephrotoxic agents 7. Skin: Balmex to sacrum, turn q2h 9. Psch: depression c/u ZOloft 10. GI ppx: protonix 11. DVT ppx: on eliquis 12. Skin: saral ulcer with mild bleeding today, will d/c Zinc oxide and start optifoam, turn q2h 12. Dispo: TBD Allergies Coded Allergies: No Known Allergies (Unverified , 11/16/18) Vital Signs Vital Signs Date Time Temp Pulse Resp B/P (MAP) Pulse Ox O2 Delivery O2 Flow Rate FiO2 01/10/19 09:00 83 90/42 01/10/19 07:01 96.9 18 93 01/07/19 08:00 2.0 Laboratory Data CBC/BMP Laboratory Tests 01/10/19 06:25 Red Blood Count 3.16 L, Mean Corpuscular Volume 91.1, Mean Corpuscular H emoglobin 28.8, Mean Corpuscular Hemoglobin Concent 31.6 L, Red Cell Distribution Width 22.9 H, Calcium Level 8.8, Aspartate Amino Transf (AST/SGOT) 16, Alanine Aminotransferase (ALT/SGPT) 29, Alkaline Phosphatase 78, Total Bilirubin 0.4, Total Protein 5.4 L, Albumin 2.3 L Labs 24H Laboratory Tests 2 01/09/19 16:25: C-Reactive Protein, Quantitative 2.69H 01/10/19 06:25: Nucleated Red Blood Cells % (auto) 1.5H, Immature Platelet Fraction 3.6, Anion Gap 13, Glomerular Filtration Rate 35.1L, Blood Urea Nitrogen 39H, Creatinine 2.00H, Sodium Level 140, Potassium Level 4.0, Chloride Level 111H, Carbon Dioxide Level 16L, Calcium Level 8.8, Aspartate Amino Transf (AST/SGOT) 16, Alanine Aminotransferase (ALT/SGPT) 29, Alkaline Phosphatase 78, Total Bilirubin 0.4, Total Protein 5.4L, Albumin 2.3L, Magnesium Level 2.1, Albumin/Globulin Ratio 0.74L 01/10/19 08:47: [facility]side Gl[facility] 92 Microbiology Microbiology 01/09/19 Blood Culture - Preliminary, Resulted No growth after 24 hours . All specim... 01/09/19 Blood Culture - Preliminary, Resulted No growth after 24 hours . All specim... 01/08/19 Urine Culture - Final, Complete Current Medications Current Medications Current Medications Acetaminophen (Tylenol Tab) 650 mg Q4HP PRN PO MILD PAIN (PS 1-4) Last administered on 01/10/19 08:53; Start 01/06/19 at 17:45 Acyclovir (Zovirax) 400 mg BID PO Last administered on 01/10/19 10:39; Start 01/06/19 at 21:00 Al Hydrox/Mg Hydrox/Simethicone (Mylanta) 30 ml Q4HP PRN PO DYSPEPSIA; Start 01/06/19 at 17:45 Albuterol Sulfate (Proventil, Ventolin Hfa) 2 puff Q4HP PRN INH SHORTNESS OF B REATH; Start 01/06/19 at 18:00 Albuterol/ Ipratropium (Duoneb (Ipr 0.5mg/Alb 2.5mg)) 3 ml RTID NEB Last administered on 01/10/19at 07:50; Start 01/06/19 at 20:00 Allopurinol (Zyloprim) 300 mg DAILY PO Last administered on 01/10/19at 10:39; Start 01/07/19 at 09:00 Apixaban (Eliquis) 5 mg BID PO Last administered on 01/10/19at 10:39; Start 01/06/19 at 21:00 Aspirin (Aspirin Chewable) 81 mg QPM PO Last administered on 01/09/19at 21:06; Start 01/06/19 at 21:00 Atorvastatin Calcium (Lipitor) 20 mg QHS PO Last administered on 01/09/19at 21:06; Start 01/06/19 at 21:00 Bisacodyl (Dulcolax Suppository) 10 mg DAILYPRN PRN [place] CONSTIPATION; Start 01/06/19 at 17:45 Famotidine (Pepcid) 20 mg DAILY PO Last administered on 01/10/19at 10:39; Start 01/07/19 at 09:00 Heparin Sodium (Heparin (Flush)) 500 units ASDIRECTED PRN IV SEE LABEL COMMENTS Last administered on 01/09/19at 22:15; Start 01/06/19 at 17:45 Heparin Sodium (Heparin (Flush)) 500 units DAILY IV Last administered on 01/09/19at 08:38; Start 01/07/19 at 09:00 Metoprolol Succinate (TopROL XL) 12.5 mg DAILY PO ; Start 01/10/19 at 09:00 Metoprolol Succinate (TopROL XL) 25 mg DAILY PO Last administered on 01/08/19at 08:06; Start 01/07/19 at 09:00; Stop 01/09/19 at 11:53; Status DC Ondansetron HCl (Zofran) 4 mg Q6HP PRN PO NAUSEA; Start 01/06/19 at 17:45 Potassium Chloride (Micro-K Extencaps) 20 meq BID PO Last administered on 01/08/19at 08:06; Start 01/06/19 at 21:00; Stop 01/08/19 at 13:17; Status DC Senna (Senokot) 1 tab QHS PO ; Start 01/06/19 at 21:00; Stop 01/06/19 at 21:00; Status DC Senna/Docusate Sodium (Senokot S) 1 tab BID PO ; Start 01/06/19 at 21:00; Stop 01/06/19 at 21:00; Status DC Sertraline HCl (Zoloft) 100 mg DAILY PO Last administered on 01/09/19at 08:38; Start 01/07/19 at 09:00; Stop 01/10/19 at 10:30; Status DC Sertraline HCl (Zoloft) 100 mg QHS PO ; Start 01/10/19 at 21:00 Sodium Bicarbonate (Sodium Bicarbonate) 325 mg BID PO Last administered on 01/10/19at 10:38; Start 01/09/19 at 09:00 Sodium Chloride 500 ml @ 100 mls/hr Q5H IV Last administered on 01/10/19at 10:40; Start 01/10/19 at 10:28; Stop 01/10/19 at 15:27 Sodium Chloride 1,000 ml @ 100 mls/hr Q10H IV ; Start 01/10/19 at 10:00; Stop 01/10/19 at 10:30; Status DC Sodium Chloride (Saline Lock Flush) 10 ml ASDIRECTED PRN IV SEE LABEL COMMENTS Last administered on 01/09/19at 22:15; Start 01/06/19 at 17:45 Sodium Chloride (Saline Lock Flush) 10 ml DAILY IV Last administered on 01/09/19at 08:38; Start 01/07/19 at 09:00 Tamsulosin HCl (Flomax) 0.4 mg QHS PO Last administered on 01/09/19at 21:06; Start 01/06/19 at 21:00 Zinc Oxide (Boudreauxs Butt Paste) 1 oz TID TOP Last administered on 01/09/19at 09:20; Start 01/06/19 at 21:00; Stop 01/09/19 at 16:13; Status DC A-FIB/CHADSVASC A-FIB History Current/History of A-Fib/PAF?: No LAXMI LYNN MD January 10, 2019 11:58
--- NOTE | 2019-01-10 12:04 | IPNPDOC ---
PM&R Progress Note DATE OF SERVICE: January 10, 2019 National Coverage Specialist Progress Note Subjective: Patient received 1 unit rbcs last night and a post-infusion of Lasix with no complications, this morning had orthostatics and headache and dizziness with preserved mentation, and was started on gentle IV fluids and placed in Trendelenburg. His BPs improved from sBP 70-90s to BPs 100/60 and he was able to sit up, eat lunch, reporting his dizziness improving and headache responding to Tylenol. He denied any chest pain, no focal weakness on exam or slurred spe ech. REVIEW OF SYSTEMS: The following is a completed review of systems and has been reviewed. Review of systems otherwise unremarkable. PAIN: Patient self reports no pain EYES: Negative EARS, NOSE, & THROAT: Denies dysphagia or throat pain CARDIOVASCULAR: denies chest pain or palpitations, +orthostatics PULMONARY: +shortness of breath at rest and on exertion GASTROINTESTINAL:+diarrhea (improved) GENITOURINARY: Negative for dysuria MUSCULOSKELETAL: generalized weakness NEUROLOGICAL: no tremor or seizure activity HEMATOLOGICAL: +leukopenia and anemia SKIN +sacral ulcer PSYCHIATRIC: Unremarkable All other review of systems found to be negative. PHYSICAL EXAMINATION: VITAL SIGNS: Please see below. GENERAL: Pleasant and cooperative. No acute distress. HEENT: PERRL. Extraocular movements intact. Clear conjunctiva CARDIOVASCULAR: Regular rate and rhythm. No murmurs, rubs, or gallops LUNGS: Clear to auscultation bilaterally. No wheezes. No rhonchi, exertional dyspnea ABDOMEN: Soft, nontender, mildly- distended. Positive bowel sounds. Normal active bowel sounds NEUROLOGICAL: Alert and oriented times three. Cranial nerves II through XII grossly intact. Sensation grossly intact EXTREMITIES:5-\5 strength bilateral upper extremities.4-/5 hip flexors, knee extensors, ankle DF, 0/5 EHL bilat LE no edema, scattered ecchymosis SKIN: sacral ulcer ASSESSMENT:73-year-old M with past medical history of multiple myeloma, endocarditis who presents status post dehydration, fever, weakness due to endocarditis. PLAN: 1. Rehab: PT, OT, assess for DME needs, dyspneic with exertion, able to ambulate short distances with RW- medical hold today for orthostatics 2. Neuro: avoid deliriogenic meds, stable 3. 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 Adams and will avoid diuretics going forward- appreciate recs 4. Resp: pmh COPD with interstitial lung disease on recent CT, c/u breathing treatments and supplemental 02, monitor for worsening infection -will repeat CXR today 5. Heme/onc: pmh multiple myeloma, chemo on hold- patient leuokopenic, anemic, and low platelets- c/u to monitor- per medicine recs, Neupogen if wbc <1.5 -s/p 1 unit prbc 01/06/19 and agin 01/09/19, Hgb up to 9.1 today -c/u Acyclovir 6. Renal: pmh CKD with recent DUSTIN while getting diuresed, avoid nephrotoxic agents-recs appreciated 7. Skin: Balmex to sacrum, turn q2h 9. Psch: depression c/u ZOloft 10. GI ppx: protonix 11. DVT ppx: on eliquis 12. : BPH will hold Flomax until orthostatics improve 12. Skin: saral ulcer c/u optifoam, turn q2h 12. Dispo: TBD Allergies Coded Allergies: No Known Allergies (Unverified , 11/16/18) Vital Signs Vital Signs Date Time Temp Pulse Resp B/P (MAP) Pulse Ox O2 Delivery O2 Flow Rate FiO2 01/10/19 09:00 83 90/42 01/10/19 07:01 96.9 18 93 01/07/19 08:00 2.0 Laboratory Data CBC/BMP Laboratory Tests 01/10/19 06:25 Red Blood Count 3.16 L, Mean Corpuscular Volume 91.1, Mean Corpuscular Hemoglobin 28.8, Mean Corpuscular Hemoglobin Concent 31.6 L, Red Cell Dist ribution Width 22.9 H, Calcium Level 8.8, Aspartate Amino Transf (AST/SGOT) 16, Alanine Aminotransferase (ALT/SGPT) 29, Alkaline Phosphatase 78, Total Bilirubin 0.4, Total Protein 5.4 L, Albumin 2.3 L Labs 24H Laboratory Tests 2 01/09/19 16:25: C-Reactive Protein, Quantitative 2.69H 01/10/19 06:25: Nucleated Red Blood Cells % (auto) 1.5H, Immature Platelet Fraction 3.6, Anion Gap 13, Glomerular Filtration Rate 35.1L, Blood Urea Nitrogen 39H, Creatinine 2.00H, Sodium Level 140, Potassium Level 4.0, Chloride Level 111H, Carbon Dioxide Level 16L, Calcium Level 8.8, Aspartate Amino Transf (AST/SGOT) 16, Alanine Aminotransferase (ALT/SGPT) 29, Alkaline Phosphatase 78, Total Bilirubin 0.4, Total Protein 5.4L, Albumin 2.3L, Magnesium Level 2.1, Albumin/Globulin Ratio 0.74L 01/10/19 08:47: Bedside Glucose (Misc Panel) 92 Microbiology Microbiology 01/09/19 Blood Culture - Preliminary, Resulted No growth after 24 hours . All specim... 01/09/19 Blood Culture - Preliminary, Resulted No growth after 24 hours . All specim... 01/08/19 Urine Culture - Final, Complete Current Medications Current Medications Current Medications Acetaminophen (Tylenol Tab) 650 mg Q4HP PRN PO MILD PAIN (PS 1-4) Last ad ministered on 01/10/19at 08:53; Start 01/06/19 at 17:45 Acyclovir (Zovirax) 400 mg BID PO Last administered on 01/10/19at 10:39; Start 01/06/19 at 21:00 Al Hydrox/Mg Hydrox/Simethicone (Mylanta) 30 ml Q4HP PRN PO DYSPEPSIA; Start 01/06/19 at 17:45 Albuterol Sulfate (Proventil, Ventolin Hfa) 2 puff Q4HP PRN INH SHORTNESS OF BREATH; Start 01/06/19 at 18:00 Albuterol/ Ipratropium (Duoneb (Ipr 0.5mg/Alb 2.5mg)) 3 ml RTID NEB Last administered on 01/10/19at 07:50; Start 01/06/19 at 20:00 Allopurinol (Zyloprim) 300 mg DAILY PO Last administered on 01/10/19at 10:39; Start 01/07/19 at 09:00 Apixaban (Eliquis) 5 mg BID PO Last administered on 01/10/19at 10:39; Start 01/06/19 at 21:00 Aspirin (Aspirin Chewable) 81 mg QPM PO Last administered on 01/09/19at 21:06; Start 01/06/19 at 21:00 Atorvastatin Calcium (Lipitor) 20 mg QHS PO Last administered on 01/09/19at 21:06; Start 01/06/19 at 21:00 Bisacodyl (Dulcolax Suppository) 10 mg DAILYPRN PRN [place] CONSTIPATION; Start 01/06/19 at 17:45 Famotidine (Pepcid) 20 mg DAILY PO Last administered on 01/10/19at 10:39; Start 01/07/19 at 09:00 Heparin Sodium (Heparin (Flush)) 500 units ASDIRECTED PRN IV SEE LABEL COMMENTS Last administered on 01/09/19at 22:15; Start 01/06/19 at 17:45 Heparin Sodium (Heparin (Flush)) 500 units DAILY IV Last administered on 01/09/19at 08:38; Start 01/07/19 at 09:00 Metoprolol Succinate (TopROL XL) 12.5 mg DAILY PO ; Start 01/10/19 at 09:00 Metoprolol Succinate (TopROL XL) 25 mg DAILY PO Last administered on 01/08/19at 08:06; Start 01/07/19 at 09:00; Stop 01/09/19 at 11:53; Status DC Ondansetron HCl (Zofran) 4 mg Q6HP PRN PO NAUSEA; Start 01/06/19 at 17:45 Potassium Chloride (Micro-K Extencaps) 20 meq BID PO Last administered on 01/08/19at 08:06; Start 01/06/19 at 21:00; Stop 01/08/19 at 13:17; Status DC Senna (Senokot) 1 tab QHS PO ; Start 01/06/19 at 21:00; Stop 01/06/19 at 21:00; Status DC Senna/Docusate Sodium (Senokot S) 1 tab BID PO ; Start 01/06/19 at 21:00; Stop 01/06/19 at 21:00; Status DC Sertraline HCl (Zoloft) 100 mg DAILY PO Last administered on 01/09/19 08:38; Start 01/07/19 at 09:00; Stop 01/10/19 at 10:30; Status DC Sertraline HCl (Zoloft) 100 mg QHS PO ; Start 01/10/19 at 21:00 Sodium Bicarbonate (Sodium Bicarbonate) 325 mg BID PO Last administered on 01/10/19at 10:38; Start 01/09/19 at 09:00 Sodium Chloride 500 ml @ 100 mls/hr Q5H IV Last administered on 01/10/19at 10:40; Start 01/10/19 at 10:28; Stop 01/10/19 at 15:27 Sodium Chloride 1,000 ml @ 100 mls/hr Q10H IV ; Start 01/10/19 at 10:00; Stop 01/10/19 at 10:30; Status DC Sodium Chloride (Saline Lock Flush) 10 ml ASDIRECTED PRN IV SEE LABEL COMMENTS Last administered on 01/09/19at 22:15; Start 01/06/19 at 17:45 Sodium Chloride (Saline Lock Flush) 10 ml DAILY IV Last administered on 01/09/19 08:38; Start 01/07/19 at 09:00 Tamsulosin HCl (Flomax) 0.4 mg QHS PO Last administered on 01/09/19 21:06; Start 01/06/19 at 21:00 Zinc Oxide (Boudreauxs Butt Paste) 1 oz TID TOP Last administered on 01/09/19at 09:20; Start 01/06/19 at 21:00; Stop 01/09/19 at 16:13; Status DC A-FIB/CHADSVASC A-FIB History Current/History of A-Fib/PAF?: No LAXMI LYNN MD January 10, 2019 12:04
[2019-01-10 13:51] VITALS: BP 78/58
--- NOTE | 2019-01-10 14:46 | REP ---
Chest one-view HISTORY: Shortness of breath Comparison: 01/08/2019 The lungs are clear. The heart is normal in size. The cardiac silhouette is enlarged. The pulmonary vasculature is normal in appearance. A cardiac pacemaker and [id number] catheter are present. Impression: Cardiomegaly. Electronically Signed by Doc Lovett MD 01/10/2019 02:38 P
--- NOTE | 2019-01-10 17:04 | IPN ---
DATE: 01/10/2019 Mr. Maza does not seem as good today. He was not able to go to physical therapy because of weakness and hypotension. His blood pressure was 78/58. He had a unit of blood yesterday and Lasix. He denies any nausea, vomiting or diarrhea. No abdominal pain or chest pain. He has increasing shortness of breath. LABORATORY DATA: White count is 4.6, hemoglobin 9.1, hematocrit 28.8, platelets 63. Sodium 140, potassium 4, chloride 111, bicarbonate 16, BUN 39, creatinine 2, glucose 99, AST 16, ALT 29, alkaline phosphatase 78, total protein 5.4, albumin 2.3. Blood cultures from 01/09/2019, two sets are no growth. IMPRESSION: 1. 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 Repeat blood cultures are negative. There was a concern by his oncologist that he needs his Cdicmg-L-Ynnc removed. Streptococcus does not necessarily need removal of Yehwxo-D-Uqbr but if that is the preference of the oncologist, I do not have any reason to disagree with that. We can remove it while he is in the hospital and he can have his treatment through a peripherally inserted central catheter (PICC) line as an outpatient or a peripheral IV until he has a new line placed. 2. Hypotension, possibly due to medication, possibly due to mitral valve involvement. I would suggest obtaining a consultation from his boiler erector since he has had multiple issues with congestive heart failure and hypotension. PLAN: Discussed with family whether he wants his Nggmmy-G-Wlnl removed but at this point as long as blood cultures are negative and no recurrent fever, that would not be an indication. C-reactive protein (CRP) is down to 2.69. We will obtain another set of blood cultures today as he has hypotension through his line just to confirm that he does not have any recurrence of infection.
[2019-01-10 20:00] VITALS: BP 120/78
[2019-01-10] MEDS: ATORVASTATIN 20 MG TAB PO SCH (22:03)
[2019-01-10] MEDS: TAMSULOSIN 0.4 MG CAP PO SCH (22:03)
[2019-01-10] MEDS: SERTRALINE 100 MG TAB PO SCH (22:03)
[2019-01-10] MEDS: ASPIRIN 81 MG CHEW TABLET PO SCH (22:03)
[2019-01-11 06:00] VITALS: BP 153/79
[2019-01-11 06:03] VITALS: BP 100/63
[2019-01-11 06:06] VITALS: BP 112/60
[2019-01-11] MEDS: IPRATROPIUM 0.5MG/ALBUTEROL 2.5MG INH SOL UD 3ML (DUONEB)(J7620) NEB SCH ×3 (07:34→19:58)
[2019-01-11] MEDS: METOPROLOL SUCC *XL* 12.5MG PER 1/2 TAB (TopROL *XL*) PO SCH (09:00)
[2019-01-11] MEDS: ACYCLOVIR 200 MG CAPSULE PO SCH ×2 (09:40→20:22)
[2019-01-11] MEDS: FAMOTIDINE 20 MG TAB PO SCH (09:40)
[2019-01-11] MEDS: ALLOPURINOL 300 MG TAB PO SCH (09:40)
[2019-01-11] MEDS: APIXABAN 5 MG TAB (ELIQUIS) PO SCH ×2 (09:40→20:22)
[2019-01-11] MEDS: SODIUM BICARBONATE 325 MG TAB PO SCH ×2 (09:40→20:22)
[2019-01-11] MEDS: SODIUM CHLORIDE 0.9% INJ 10 ML SYR IV SCH (09:42)
--- NOTE | 2019-01-11 10:08 | IPNPDOC ---
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 REVIEW OF SYSTEMS: The following is a completed review of systems and has been reviewed. Review of systems otherwise unremarkable. PAIN: Patient self reports no pain EYES: Negative EARS, NOSE, & THROAT: Denies dysphagia or throat pain CARDIOVASCULAR: denies chest pain or palpitations, +orthostatics PULMONARY: +shortness of breath at rest and on exertion GASTROINTESTINAL:+diarrhea (improved) GENITOURINARY: Negative for dysuria MUSCULOSKELETAL: generalized weakness NEUROLOGICAL: no tremor or seizure activity HEMATOLOGICAL: +leukopenia and anemia SKIN +sacral ulcer PSYCHIATRIC: Unremarkable All other review of systems found to be negative. PHYSICAL EXAMINATION: VITAL SIGNS: Please see below. GENERAL: Pleasant and cooperative. No acute distress. HEENT: PERRL. Extraocular movements intact. Clear conjunctiva CARDIOVASCULAR: Regular rate and rhythm. No murmurs, rubs, or gallops LUNGS: Clear to auscultation bilaterally. No wheezes. No rhonchi, exertional dyspnea ABDOMEN: Soft, nontender, mildly- distended. Positive bowel sounds. Normal active bowel sounds NEUROLOGICAL: Alert and oriented times three. Cranial nerves II through XII grossly intact. Sensation grossly intact EXTREMITIES:5-\5 strength bilateral upper extremities.4-/5 hip flexors, knee extensors, ankle DF, 0/5 EHL bilat LE no edema, scattered ecchymosis SKIN: sacral ulcer ASSESSMENT:73-year-old M with past medical history of multiple myeloma, endocarditis who presents status post dehydration, fever, weakness due to endocarditis. PLAN: 1. Rehab: PT, OT, assess for DME needs, dyspneic with exertion, able to ambulate short distances with RW- goal will be to home at wheelchair level 2. Neuro: avoid deliriogenic meds, stable 3. cardiac: recent dx of Strep Infantarius Endocarditis, per ID recs, s/p IV abx, last dose of Ceftriaxone 01/05/19- will consult, c/u Eliquis -pmh PM with 3rd degree AVB s/p PM with diastolic CHF- medicine consulted to follow -patient still reporting dizziness yesterday and over the weekend, decreased Metoprolol to 12.5mg with holding parameters, c/u to hold diuretics, will trial pyridostigmine for orthostatics, c/u acewrapping LE prior to therapy 4. Resp: pmh COPD with interstitial lung disease on recent CT, c/u breathing treatments and supplemental 02, monitor for worsening infection -repeat CXR 01/10/19 no acute infiltrate, no vascular congestion 5. Heme/onc: pmh multiple myeloma, chemo on hold- patient leuokopenic, anemic, and low platelets- c/u to monitor- per medicine recs, Neupogen if wbc <1.5 -s/p 1 unit prbc 01/06/19 and again 01/09/19, Hgb up to 9.1-c/u to monitor -c/u Acyclovir 6. Renal: pmh CKD with recent DUSTIN while getting diuresed, avoid nephrotoxic agents-renal recs appreciated 7. Skin: Balmex to sacrum, turn q2h 9. Psch: depression c/u ZOloft 10. GI ppx: protonix 11. DVT ppx: on eliquis 12. : BPH will hold Flomax until orthostatics improve 12. Skin: saral ulcer c/u optifoam, turn q2h 12. Dispo: 01/17/19 to home, pending training with Allergies Coded Allergies: No Known Allergies (Unverified , 11/16/18) Vital Signs Vital Signs Date Time Temp Pulse Resp B/P (MAP) Pulse Ox O2 Delivery O2 Flow Rate FiO2 01/11/19 09:00 104 102/62 01/11/19 06:00 97.5 19 91 01/07/19 08:00 2.0 Laboratory Data Labs 24H Laboratory Tests 2 01/10/19 17:15: Erythrocyte Sedimentation Rate 65H Microbiology Microbiology 01/10/19 Blood Culture, Received Pending 01/09/19 Blood Culture - Preliminary, Resulted No Growth after 48 hours. All Specime... 01/09/19 Blood Culture - Preliminary, Resulted No Growth after 48 hours. All Specime... 01/08/19 Urine Culture - Final, Complete Current Medications Current Medications Current Medications Acetaminophen (Tylenol Tab) 650 mg Q4HP PRN PO MILD PAIN (PS 1-4) Last administered on 01/10/19at 13:43; Start 01/06/19 at 17:45 Acyclovir (Zovirax) 400 mg BID PO Last administered on 01/11/19 09:40; Start 01/06/19 at 21:00 Al Hydrox/Mg Hydrox/Simethicone (Mylanta) 30 ml Q4HP PRN PO DYSPEPSIA; Start 01/06/19 at 17:45 Albuterol Sulfate (Proventil, Ventolin Hfa) 2 puff Q4HP PRN INH SHORTNESS OF BREATH; Start 01/06/19 at 18:00 Albuterol/ Ipratropium (Duoneb (Ipr 0.5mg/Alb 2.5mg)) 3 ml RTID NEB Last administered on 01/11/19 07:34; Start 01/06/19 at 20:00 Allopurinol (Zyloprim) 300 mg DAILY PO Last administered on 01/11/19 09:40; Start 01/07/19 at 09:00 Apixaban (Eliquis) 5 mg BID PO Last administered on 01/11/19 09:40; Start 01/06/19 at 21:00 Aspirin (Aspirin Chewable) 81 mg QPM PO Last administered on 01/10/19 22:03; Start 01/06/19 at 21:00 Atorvastatin Calcium (Lipitor) 20 mg QHS PO Last administered on 01/10/19 22:03; Start 01/06/19 at 21:00 Bisacodyl (Dulcolax Suppository) 10 mg DAILYPRN PRN [place] CONSTIPATION; Start 01/06/19 at 17:45 Famotidine (Pepcid) 20 mg DAILY PO Last administered on 01/11/19 09:40; Start 01/07/19 at 09:00 Heparin Sodium (Heparin (Flush)) 500 units ASDIRECTED PRN IV SEE LABEL COMMENTS Last administered on 01/09/19 22:15; Start 01/06/19 at 17:45 Heparin Sodium (Heparin (Flush)) 500 units DAILY IV Last administered on 01/11/19 09:42; Start 01/07/19 at 09:00 Metoprolol Succinate (TopROL XL) 12.5 mg DAILY PO ; Start 01/10/19 at 09:00 Metoprolol Succinate (TopROL XL) 25 mg DAILY PO Last administered on 5/19/19at 08:06; Start 01/07/19 at 09:00; Stop 01/09/19 at 11:53; Status DC Ondansetron HCl (Zofran) 4 mg Q6HP PRN PO NAUSEA; Start 01/06/19 at 17:45 Potassium Chloride (Micro-K Extencaps) 20 meq BID PO Last administered on 01/08/19at 08:06; Start 01/06/19 at 21:00; Stop 01/08/19 at 13:17; Status DC Senna (Senokot) 1 tab QHS PO ; Start 01/06/19 at 21:00; Stop 01/06/19 at 21:00; Status DC Senna/Docusate Sodium (Senokot S) 1 tab BID PO ; Start 01/06/19 at 21:00; Stop 01/06/19 at 21:00; Status DC Sertraline HCl (Zoloft) 100 mg DAILY PO Last administered on 01/09/19at 08:38; Start 01/07/19 at 09:00; Stop 01/10/19 at 10:30; Status DC Sertraline HCl (Zoloft) 100 mg QHS PO Last administered on 01/10/19at 22:03; S tart 01/10/19 at 21:00 Sodium Bicarbonate (Sodium Bicarbonate) 325 mg BID PO Last administered on 01/11/19at 09:40; Start 01/09/19 at 09:00 Sodium Chloride 500 ml @ 100 mls/hr Q5H IV Last administered on 01/10/19at 10:40; Start 01/10/19 at 10:28; Stop 01/10/19 at 15:27; Status DC Sodium Chloride 1,000 ml @ 100 mls/hr Q10H IV ; Start 01/10/19 at 10:00; Stop 01/10/19 at 10:30; Status DC Sodium Chloride (Saline Lock Flush) 10 ml ASDIRECTED PRN IV SEE LABEL COMMENTS Last administered on 01/09/19at 22:15; Start 01/06/19 at 17:45 Sodium Chloride (Saline Lock Flush) 10 ml DAILY IV Last administered on 01/11/19at 09:42; Start 01/07/19 at 09:00 Tamsulosin HCl (Flomax) 0.4 mg QHS PO Last administered on 01/10/19at 22:03; Start 01/06/19 at 21:00 Zinc Oxide (Boudreauxs Butt Paste) 1 oz TID TOP Last administered on 01/09/19at 09:20; Start 01/06/19 at 21:00; Stop 01/09/19 at 16:13; Status DC A-FIB/CHADSVASC A-FIB History Current/History of A-Fib/PAF?: No Current Oral Anticoagulant The: Yes LAXMI LYNN MD January 11, 2019 10:08
[2019-01-11 11:05] LABS: HEMATOCRIT 33.8 % (42.0-52.0); HEMOGLOBIN 10.5 g/dl (13.5-17.5); MEAN CORPUSCULAR HEMOGLOBIN 29.6 pg (27.0-33.0); MEAN CORPUSCULAR HGB CONC 31.1 g/dl (32.0-36.5); MEAN CORPUSCULAR VOLUME 95.2 fl (80.0-96.0); RED BLOOD COUNT 3.55 10^6/uL (4.30-6.10); WHITE BLOOD COUNT 6.7 10^3/uL (4.0-10.0)
[2019-01-11 11:11] LABS: PLATELET COUNT, AUTOMATED 70 10^3/uL (150-450)
[2019-01-11 11:29] LABS: ALBUMIN 2.6 GM/DL (3.2-5.2); BILIRUBIN,TOTAL 0.4 MG/DL (0.2-1.0); CALCIUM LEVEL 8.5 MG/DL (8.8-10.2); CREATININE FOR GFR 1.79 MG/DL (0.70-1.30); GLOMERULAR FILTRATION RATE 39.9 (>42); POTASSIUM SERUM 3.8 MEQ/L (3.5-5.1); TOTAL PROTEIN 6.4 GM/DL (6.4-8.2)
[2019-01-11] MEDS ORDERED: PYRIDOSTIGMINE 60 MG TAB PO SCH (12:30)
[2019-01-11] MEDS ORDERED: PILL CUTTER 1 EACH XX PRN (13:00)
[2019-01-11] MEDS: PYRIDOSTIGMINE 60 MG TAB PO SCH ×3 (13:33→20:22)
[2019-01-11 14:00] VITALS: BP_SYST 138; BP_SYST 140; BP_SYST 80; BP_DIAS 52; BP_DIAS 69; BP_DIAS 70
[2019-01-11 20:00] VITALS: BP 118/66
[2019-01-11] MEDS: ATORVASTATIN 20 MG TAB PO SCH (20:22)
[2019-01-11] MEDS: SERTRALINE 100 MG TAB PO SCH (20:22)
[2019-01-11] MEDS: ASPIRIN 81 MG CHEW TABLET PO SCH (20:22)
[2019-01-11] MEDS: SODIUM CHLORIDE 0.9% INJ 10 ML SYR IV PRN (20:26)
[2019-01-12 00:50] VITALS: BP_SYST 102; BP_SYST 110; BP_SYST 95; BP_DIAS 50; BP_DIAS 57; BP_DIAS 68
[2019-01-12 05:52] VITALS: BP 112/66
[2019-01-12 06:48] LABS: HEMATOCRIT 28.4 % (42.0-52.0); HEMOGLOBIN 8.9 g/dl (13.5-17.5); MEAN CORPUSCULAR HEMOGLOBIN 29.5 pg (27.0-33.0); MEAN CORPUSCULAR HGB CONC 31.3 g/dl (32.0-36.5); RED BLOOD COUNT 3.02 10^6/uL (4.30-6.10); WHITE BLOOD COUNT 4.5 10^3/uL (4.0-10.0)
[2019-01-12 06:50] LABS: PLATELET COUNT, AUTOMATED 64 10^3/uL (150-450)
[2019-01-12 07:22] LABS: ALBUMIN 2.2 GM/DL (3.2-5.2); BILIRUBIN,TOTAL 0.5 MG/DL (0.2-1.0); CALCIUM LEVEL 7.9 MG/DL (8.8-10.2); CREATININE FOR GFR 1.37 MG/DL (0.70-1.30); GLOMERULAR FILTRATION RATE 54.4 (>42); POTASSIUM SERUM 3.5 MEQ/L (3.5-5.1); TOTAL PROTEIN 5.5 GM/DL (6.4-8.2)
[2019-01-12] MEDS: IPRATROPIUM 0.5MG/ALBUTEROL 2.5MG INH SOL UD 3ML (DUONEB)(J7620) NEB SCH ×3 (07:38→20:00)
--- NOTE | 2019-01-12 08:51 | IPN ---
DATE: 01/11/2019 73-year-old male with a primary history significant for atrial flutter, multiple myeloma, large B cell lymphoma, COPD, DVT, chronic kidney disease, admitted and treated for neutropenic fever. He was found to have strep endocarditis. He was treated with a 4 week course of antibiotic therapy. He became very debilitated and was admitted to rehab for mobilization and strengthening. PHYSICAL EXAM: Blood pressure 112/60, pulse 96, respirations 18, temperature 97, Oxygen sat 92% on room air. Patient is alert and oriented times three. Pupils are equal and reactive to light. EOM's are intact. Cornea and sclera is clear. Conjunctiva is normal. No facial asymmetry. Tongue is midline. Neck is supple without lymphadenopathy. No thyromegaly, no goiter. Jugular venous pressure at clavicle. Chest has decreased breath sounds. No wheeze or retraction. Heart is regular. Abdomen is soft and nontender. No masses or bruits. No organomegaly. Bowel sounds are positive. and rectal not done. Extremities have 1+ bilateral lower extremity edema. Peripheral pulses are equal and palpable bilaterally. LABS: White count 6.7, hemoglobin and hematocrit are up to 10.5 and 33.8, platelets are up to 70. Sodium 141, potassium 3.8, chloride 112, CO2 up to 17, BUN 33, creatinine 1.7, blood culture preliminary are negative. IMPRESSION/PLAN: 1. Atrial fib, paroxysmal in nature. Continue Eliquis for anticoagulation. Continue metoprolol for weight control. Heart rate is regular. 2. Acute on chronic diastolic failure. Currently compensated. Nephrology managing diuretics. Continue fluid restriction. Still with shortness of breath on exertion. 3. Anemia improved status-post infusion. 4. Multiple myeloma. Chemotherapy on hold secondary to poor tolerance and leukopenia. 5. Chronic kidney disease followed by nephrology. 6. Strep endocarditis, antibiotic therapy completed. Blood culture preliminary negative followed up by Dr. Diaz. 7. COPD stable. Continue supplemental oxygen and respiratory treatments. 8. Debility. Continue rehabilitation for mobilization and strengthening. Deep tissue pressure injury. Optifoam in place. 9. Deep venous thrombosis (DVT) prophylaxis. Full anticoagulated with Eliquis. 10. Diarrhea improving. 1 loose stool this morning.
[2019-01-12 09:00] VITALS: BP_SYST 120; BP_SYST 98; BP_DIAS 56; BP_DIAS 79
[2019-01-12] MEDS: METOPROLOL SUCC *XL* 12.5MG PER 1/2 TAB (TopROL *XL*) PO SCH ×3 (09:00→09:07)
[2019-01-12] MEDS: APIXABAN 5 MG TAB (ELIQUIS) PO SCH ×2 (09:02→20:33)
[2019-01-12] MEDS: SODIUM CHLORIDE 0.9% INJ 10 ML SYR IV SCH (09:04)
[2019-01-12] MEDS: FAMOTIDINE 20 MG TAB PO SCH (09:04)
[2019-01-12] MEDS: ALLOPURINOL 300 MG TAB PO SCH (09:04)
[2019-01-12] MEDS: SODIUM BICARBONATE 325 MG TAB PO SCH ×2 (09:04→20:33)
[2019-01-12] MEDS: ACYCLOVIR 200 MG CAPSULE PO SCH ×2 (09:04→20:33)
[2019-01-12] MEDS: PYRIDOSTIGMINE 60 MG TAB PO SCH ×3 (09:04→20:34)
--- NOTE | 2019-01-12 10:53 | IPNPDOC ---
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 Denies chest pain or palpitations. REVIEW OF SYSTEMS: The following is a completed review of systems and has been reviewed. Review of systems otherwise unremarkable. PAIN: Patient self reports no pain EYES: Negative EARS, NOSE, & THROAT: Denies dysphagia or throat pain CARDIOVASCULAR: denies chest pain or palpitations, +orthostatics PULMONARY: +shortness of breath at rest and on exertion GASTROINTESTINAL:+diarrhea (improved) GENITOURINARY: Negative for dysuria MUSCULOSKELETAL: generalized weakness NEUROLOGICAL: no tremor or seizure activity HEMATOLOGICAL: +leukopenia and anemia SKIN +sacral ulcer PSYCHIATRIC: Unremarkable All other review of systems found to be negative. PHYSICAL EXAMINATION: VITAL SIGNS: Please see below. GENERAL: Pleasant and cooperative. No acute distress. HEENT: PERRL. Extraocular movements intact. Clear conjunctiva CARDIOVASCULAR: Regular rate and rhythm. No murmurs, rubs, or gallops LUNGS: Clear to auscultation bilaterally. No wheezes. No rhonchi, exertional dyspnea ABDOMEN: Soft, nontender, mildly- distended. Positive bowel sounds. Normal active bowel sounds NEUROLOGICAL: Alert and oriented times three. Cranial nerves II through XII grossly intact. Sensation grossly intact EXTREMITIES:5-\5 strength bilateral upper extremities.4-/5 hip flexors, knee extensors, ankle DF, 0/5 EHL bilat LE no edema, scattered ecchymosis SKIN: sacral ulcer ASSESSMENT:73-year-old M with past medical history of multiple myeloma, endocarditis who presents status post dehydration, fever, weakness due to endocarditis. PLAN: 1. Rehab: PT, OT, assess for DME needs, dyspneic with exertion, able to ambulate short distances with RW- goal will be to home at wheelchair level 2. Neuro: avoid deliriogenic meds, stable 3. cardiac: recent dx of Strep Infantarius Endocarditis, per ID recs, s/p IV abx, last dose of Ceftriaxone 01/05/19- will consult, c/u Eliquis -pmh PM with 3rd degree AVB s/p PM with diastolic CHF- medicine consulted to follow -patient still reporting dizziness yesterday and over the weekend, decreased Metoprolol to 12.5mg with holding parameters, c/u to hold diuretics -postural orthostatic hypotension improving on [place] 15mg TID, c/u acewrapping LE prior to therapy 4. Resp: pmh COPD with interstitial lung disease on recent CT, c/u breathing treatments and supplemental 02, monitor for worsening infection -repeat CXR 01/10/19 no acute infiltrate, no vascular congestion 5. Heme/onc: pmh multiple myeloma, chemo on hold- patient leuokopenic, anemic, and low platelets- c/u to monitor- per medicine recs, Neupogen if wbc <1.5 -s/p 1 unit prbc 01/06/19 and again 01/09/19, Hgb up to 9.1-c/u to monitor -c/u Acyclovir 6. Renal: pmh CKD with recent DUSTIN while getting diuresed, avoid nephrotoxic agents-renal recs appreciated 9. Psch: depression c/u ZOloft 10. GI ppx: protonix 11. DVT ppx: on eliquis 12. : BPH will hold Flomax until orthostatics improve 12. Skin: saral ulcer c/u optifoam, turn q2h 12. Dispo: 01/17/19 to home, pending training with Allergies Coded Allergies: No Known Allergies (Unverified , 11/16/18) Vital Signs Vital Signs Date Time Temp Pulse Resp B/P (MAP) Pulse Ox O2 Delivery O2 Flow Rate FiO2 01/12/19 09:07 72 120/79 01/12/19 05:52 97.9 16 96 01/07/19 08:00 2.0 Laboratory Data CBC/BMP Laboratory Tests 01/12/19 06:29 Red Blood Count 3.02 L, Mean Corpuscular Volume 94.0, Mean Corpuscular Hemoglobi n 29.5, Mean Corpuscular Hemoglobin Concent 31.3 L, Red Cell Distribution Width 23.7 H, Calcium Level 7.9 L, Aspartate Amino Transf (AST/SGOT) 14, Alanine Aminotransferase (ALT/SGPT) 22, Alkaline Phosphatase 79, Total Bilirubin 0.5, Total Protein 5.5 L, Albumin 2.2 L Labs 24H Laboratory Tests 2 01/12/19 06:29: Nucleated Red Blood Cells % (auto) 1.6H, Anion Gap 7L, Glomerular Filtration Rate 54.4, Blood Urea Nitrogen 29H, Creatinine 1.37H, Sodium Level 141, Potassium Level 3.5, Chloride Level 114H, Carbon Dioxide Level 20L, Calcium Level 7.9L, Aspartate Amino Transf (AST/SGOT) 14, Alanine Aminotransferase (ALT/SGPT) 22, Alkaline Phosphatase 79, Total Bilirubin 0.5, Total Protein 5.5L, Albumin 2.2L, Albumin/Globulin Ratio 0.67L Microbiology Microbiology 01/10/19 Blood Culture - Preliminary, Resulted No growth after 24 hours . All specim... 01/09/19 Blood Culture - Preliminary, Resulted No Growth after 72 hours. All specime... 01/09/19 Blood Culture - Preliminary, Resulted No Growth after 72 hours. All specime... 01/08/19 Urine Culture - Final, Complete Current Medications Current Medications Current Medications Acetaminophen (Tylenol Tab) 650 mg Q4HP PRN PO MILD PAIN (PS 1-4) Last administered on 01/10/19 13:43; Start 01/06/19 at 17:45 Acyclovir (Zovirax) 400 mg BID PO Last administered on 01/12/19 09:04; Start 01/06/19 at 21:00 Al Hydrox/Mg Hydrox/Simethicone (Mylanta) 30 ml Q4HP PRN PO DYSPEPSIA; Start at 17:45 Albuterol Sulfate (Proventil, Ventolin Hfa) 2 puff Q4HP PRN INH SHORTNESS OF BREATH; Start 01/06/19 at 18:00 Albuterol/ Ipratropium (Duoneb (Ipr 0.5mg/Alb 2.5mg)) 3 ml RTID NEB Last administered on 01/12/19 07:38; Start 01/06/19 at 20:00 Allopurinol (Zyloprim) 300 mg DAILY PO Last administered on 01/12/19 09:04; Start 01/07/19 at 09:00 Apixaban (Eliquis) 5 mg BID PO Last administered on 01/12/19 09:02; Start 01/06/19 at 21:00 Aspirin (Aspirin Chewable) 81 mg QPM PO Last administered on 01/11/19 20:22; Start 01/06/19 at 21:00 Atorvastatin Calcium (Lipitor) 20 mg QHS PO Last administered on 01/11/19at 20:22; Start 01/06/19 at 21:00 Bisacodyl (Dulcolax Suppository) 10 mg DAILYPRN PRN [place] CONSTIPATION; Start 01/06/19 at 17:45 Famotidine (Pepcid) 20 mg DAILY PO Last administered on 01/12/19at 09:04; Start 01/07/19 at 09:00 Heparin Sodium (Heparin (Flush)) 500 units ASDIRECTED PRN IV SEE LABEL COMMENTS Last administered on 01/11/19at 20:26; Start 01/06/19 at 17:45 Heparin Sodium (Heparin (Flush)) 500 units DAILY IV Last administered on 01/12/19at 09:04; Start 01/07/19 at 09:00 Metoprolol Succinate (TopROL XL) 12.5 mg DAILY PO ; Start 01/10/19 at 09:00 Metoprolol Succinate (TopROL XL) 25 mg DAILY PO Last administered on 01/08/19at 08:06; Start 01/07/19 at 09:00; Stop 01/09/19 at 11:53; Status DC Ondansetron HCl (Zofran) 4 mg Q6HP PRN PO NAUSEA; Start 01/06/19 at 17:45 Potassium Chloride (Micro-K Extencaps) 20 meq BID PO Last administered on 01/08/19at 08:06; Start 01/06/19 at 21:00; Stop 01/08/19 at 13:17; Status DC Pyridostigmine [place] (Mestinon) 15 mg TID PO ; Start 01/11/19 at 12:30; Stop 01/11/19 at 12:59; Status DC Pyridostigmine [place] (Mestinon) 15 mg TID PO Last administered on 01/12/19at 09:04; Start 01/11/19 at 13:00 Senna (Senokot) 1 tab QHS PO ; Start 01/06/19 at 21:00; Stop 01/06/19 at 21:00; Status DC Senna/Docusate Sodium (Senokot S) 1 tab BID PO ; Start 01/06/19 at 21:00; Stop 01/06/19 at 21:00; Status DC Sertraline HCl (Zoloft) 100 mg DAILY PO Last administered on 01/09/19at 08:38; Start 01/07/19 at 09:00; Stop 01/10/19 at 10:30; Status DC Sertraline HCl (Zoloft) 100 mg QHS PO Last administered on 01/11/19at 20:22; S tart 01/10/19 at 21:00 Sodium Bicarbonate (Sodium Bicarbonate) 325 mg BID PO Last administered on at 09:04; Start 01/09/19 at 09:00 Sodium Chloride 500 ml @ 100 mls/hr Q5H IV Last administered on 01/10/19at 10:40; Start 01/10/19 at 10:28; Stop 01/10/19 at 15:27; Status DC Sodium Chloride 1,000 ml @ 100 mls/hr Q10H IV ; Start 01/10/19 at 10:00; Stop 01/10/19 at 10:30; Status DC Sodium Chloride (Saline Lock Flush) 10 ml ASDIRECTED PRN IV SEE LABEL COMMENTS Last administered on 01/11/19at 20:26; Start 01/06/19 at 17:45 Sodium Chloride (Saline Lock Flush) 10 ml DAILY IV Last administered on 01/12/19 09:04; Start 01/07/19 at 09:00 Tamsulosin HCl (Flomax) 0.4 mg QHS PO Last administered on 01/10/19at 22:03; Start 01/06/19 at 21:00; Stop 01/11/19 at 10:07; Status DC Zinc Oxide (Boudreauxs Butt Paste) 1 oz TID TOP Last administered on 01/09/19at 09:20; Start 01/06/19 at 21:00; Stop 01/09/19 at 16:13; Status DC A-FIB/CHADSVASC A-FIB History Current/History of A-Fib/PAF?: No Current PO Anticoag Therapy: Yes LAXMI LYNN MD January 12, 2019 10:53
--- NOTE | 2019-01-12 13:35 | IPN ---
DATE: 01/10/2019 73-year-old male with a history of atrial flutter, controlled ventricular response, multiple myeloma, large B-cell lymphoma, chronic obstructive pulmonary disease (COPD), deep vein thrombosis (DVT), chronic kidney disease stage III, who has been treated for strep endocarditis. He had a 4-week course of antibiotic therapy. He has acute diastolic heart failure, worsening dyspnea. He was stabilized and discharged to rehabilitation unit for mobilization and strengthening due to physical deficits from prolonged illness and hospitalization. Laboratory studies yesterday showed hemoglobin and hematocrit (H and H) low at 8.1, 25.9. Patient received one unit of packed cells last evening and post dose of Lasix. On exam, patient was orthostatic. Blood pressure is running 70 systolic. He became dyspneic, increased dyspnea and lightheadedness when going from sitting to standing or lying to sitting. He was unable to sit up. He had to lie back down. He was placed in Trendelenburg. Blood pressure improved to 90 to 100 systolic. His antihypertensives were held. He received intravenous (IV) normal saline with improvement in his blood pressure. Review of systems today was otherwise unremarkable. No complaints of blurred or double vision, just lightheadedness. No fever or chills. No tinnitus. No hoarseness. No difficulty swallowing. No complaints of chest pain. He does have increased shortness of breath. No palpitations. No cough. No sputum production. No hemoptysis. No orthopnea. No wheeze. No complaints of nausea, vomiting. He has had watery loose stools yesterday and today; he states, though, only once each day. No complaints of abdominal pain. No hematochezia. No melena. Genitourinary (): No hematuria, urgency, or frequency. Musculoskeletal: Generalized weakness. No complaints of pain. Neurological: No seizures, paralysis, or paresthesias. Hematological: He has a history of anemia and leukopenia. Skin: He has a sacral ulcer. Psychiatric: No suicidal ideation. PHYSICAL EXAM: Blood pressure is currently 90/60, pulse 88, respirations 20. The patient is alert and oriented times three. Pupils are equal and reactive to light. Extraocular movements intact. Cornea and sclerae clear. Conjunctivae is normal. No facial asymmetry. Buccal mucosa is dry. Tongue is midline. Neck is supple without lymphadenopathy. No thyromegaly. No goiter. Jugular venous pressure is below clavicle. Heart is regular without murmur or gallop. Abdomen is benign. Bowel sounds are positive. Genital/Rectal: Not done. Extremities show no cyanosis, clubbing, or edema. Peripheral pulses are equal and palpable bilaterally. Patient has a sacral ulcer. Optifoam in place. ASSESSMENT AND PLAN: Atrial fibrillation. Rate remains controlled and regular. Continue on Eliquis for anticoagulation. Acute on chronic diastolic heart failure. Currently holding diuretics secondary to hypotension. Nephrology managing diuretics. Continue fluid restriction. Anemia. Patient received one unit of packed cells with improvement. Hemoglobin and hematocrit is 9.1 and 28.8, platelet count improved to 63. Multiple myeloma. Chemotherapy on hold secondary to poor tolerance and leukopenia. Neupogen if white count less than 1.5. Chronic kidney disease. Being followed by nephrology. Strep endocarditis. Antibiotic therapy is completed. Monitor for any recurrent signs or symptoms, fever, chills. Chronic obstructive pulmonary disease (COPD). Stable. Continue supplemental oxygen and respiratory treatments. Debility. Continue rehab. Sacral ulcer. Continue Optifoam. Deep vein thrombosis (DVT) prophylaxis. Patient on Eliquis. Non-anion gap metabolic acidosis. Continue bicarbonate supplementation. Labs: Followup blood cultures.
[2019-01-12 14:00] VITALS: BP_SYST 130; BP_SYST 137; BP_SYST 91; BP_DIAS 51; BP_DIAS 65; BP_DIAS 67
--- NOTE | 2019-01-12 14:42 | IPNPDOC ---
Date Seen The patient was seen on 01/12/19. Progress Note Subjective 73 Y male, multiple medical issues he is in Rehab and finished treatment of his strep endocarditis feels dizzy and BP drops when standing Review of systems no fever no chills no chest pain no abdominal pain no diarrhea PHYSICAL EXAMINATION: GENERAL: AA Ox3, sitting in the chair and not in acute distress HEENT: PERRL. Extraocular movements intact. Clear conjunctiva CARDIOVASCULAR: irregular rate and rhythm. No murmurs, rubs, or gallops LUNGS: Clear to auscultation bilaterally. No wheezes. No rhonchi, exertional dyspnea ABDOMEN: Soft, nontender, mildly- distended. Positive bowel sounds. Normal active bowel sounds NEUROLOGICAL: Non focal EXTREMITIES: no edema, scattered ecchymosis SKIN: sacral ulcer ASSESSMENT AND PLAN: 1. orthostatic hypotension, will check TSH and cortisol level 2. Atrial fibrillation. rate control and on Eliquis for anticoagulation. 3. Acute on chronic diastolic heart failure, compensated 4. acute on CKD stage 3, Cr is close to his baseline now 5. Anemia. s/p 1 unit of packed cells, will follow 6. Multiple myeloma. Chemotherapy on hold secondary to poor tolerance and leukopenia. 7. Strep endocarditis. Antibiotic therapy is completed. 8. Debility. Continue rehab. 9. Sacral ulcer. Continue Optifoam. VS, I&O, 24H, Christiano Vital Signs/I&O Vital Signs Date Time Temp Pulse Resp B/P (MAP) Pulse Ox O2 Delivery O2 Flow Rate FiO2 01/12/19 09:07 72 120/79 01/12/19 05:52 97.9 16 96 01/07/19 08:00 2.0 I&O- Last 24 Hours up to 6 AM 01/12/19 06:00 Intake Total 1030 ml Output Total 500 ml Balance 530 ml Laboratory Data 24H LABS Laboratory Tests 2 01/12/19 06:29: Nucleated Red Blood Cells % (auto) 1.6H, Anion Gap 7L, Glomerular Filtration Rate 54.4, Blood Urea Nitrogen 29H, Creatinine 1.37H, Sodium Level 141, Potassium Level 3.5, Chloride Level 114H, Carbon Dioxide Level 20L, Calcium Level 7.9L, Aspartate Amino Transf (AST/SGOT) 14, Alanine Aminotransferase (ALT/SGPT) 22, Alkaline Phosphatase 79, Total Bilirubin 0.5, Total Protein 5.5L, Albumin 2.2L, Albumin/Globulin Ratio 0.67L CBC/BMP Laboratory Tests 01/12/19 06:29 Red Blood Count 3.02 L, Mean Corpuscular Volume 94.0, Mean Corpuscular Hemoglobin 29.5, Mean Corpuscular Hemoglobin Concent 31.3 L, Red Cell Distribution Width 23.7 H, Calcium Level 7.9 L, Aspartate Amino Transf (AST/SGOT) 14, Alanine Aminotransferase (ALT/SGPT) 22, Alkaline Phosphatase 79, Total Bilirubin 0.5, Total Protein 5.5 L, Albumin 2.2 L Microbiology Microbiology 01/10/19 Blood Culture - Preliminary, Resulted No growth after 24 hours . All specim... 01/09/19 Blood Culture - Preliminary, Resulted No Growth after 72 hours. All specime... 01/09/19 Blood Culture - Preliminary, Resulted No Growth after 72 hours. All specime... 01/08/19 Urine Culture - Final, Complete YESSICA GUSTAFSON MD January 12, 2019 14:42
[2019-01-12] MEDS: ATORVASTATIN 20 MG TAB PO SCH (20:33)
[2019-01-12] MEDS: ASPIRIN 81 MG CHEW TABLET PO SCH (20:33)
[2019-01-12] MEDS: SERTRALINE 100 MG TAB PO SCH (20:33)
[2019-01-12 22:09] VITALS: BP_SYST 111; BP_SYST 141; BP_SYST 90; BP_DIAS 54; BP_DIAS 65; BP_DIAS 81
[2019-01-13 06:45] VITALS: BP 158/80
[2019-01-13 07:52] LABS: BASO % 0.4 % (0.0-1.0); EOS # 0.1 10^3/uL (0.0-0.50); HEMOGLOBIN 9.1 g/dl (13.5-17.5); LYMPH # 0.7 10^3/uL (1.5-4.5); MEAN CORPUSCULAR HEMOGLOBIN 29.7 pg (27.0-33.0); MEAN CORPUSCULAR HGB CONC 31.4 g/dl (32.0-36.5); MEAN CORPUSCULAR VOLUME 94.8 fl (80.0-96.0); MONO # 0.7 10^3/uL (0.0-0.8); MONO % 14.4 % (0.0-5.0); NEUTROPHILS # 3.3 10^3/uL (1.8-7.7); NEUTROPHILS % 68.2 % (36.0-66.0); RED BLOOD COUNT 3.06 10^6/uL (4.30-6.10); WHITE BLOOD COUNT 4.8 10^3/uL (4.0-10.0)
[2019-01-13] MEDS: IPRATROPIUM 0.5MG/ALBUTEROL 2.5MG INH SOL UD 3ML (DUONEB)(J7620) NEB SCH ×3 (07:52→19:53)
[2019-01-13 07:57] LABS: PLATELET COUNT, AUTOMATED 60 10^3/uL (150-450)
[2019-01-13 08:18] LABS: C REACTIVE PROTEIN QUANTITATIV 4.94 MG/DL (0.00-0.30); CALCIUM LEVEL 8.1 MG/DL (8.8-10.2); CREATININE FOR GFR 1.33 MG/DL (0.70-1.30); GLOMERULAR FILTRATION RATE 56.3 (>42); POTASSIUM SERUM 3.4 MEQ/L (3.5-5.1); THYROID STIMULATING HORMONE 2.14 uIU/ML (0.358-3.740)
[2019-01-13 09:26] VITALS: BP 158/80
[2019-01-13] MEDS: SODIUM BICARBONATE 325 MG TAB PO SCH ×2 (09:26→21:20)
[2019-01-13] MEDS: ACYCLOVIR 200 MG CAPSULE PO SCH ×2 (09:26→21:18)
[2019-01-13] MEDS: FAMOTIDINE 20 MG TAB PO SCH (09:26)
[2019-01-13] MEDS: ALLOPURINOL 300 MG TAB PO SCH (09:26)
[2019-01-13] MEDS: PYRIDOSTIGMINE 60 MG TAB PO SCH ×3 (09:26→21:18)
[2019-01-13] MEDS: APIXABAN 5 MG TAB (ELIQUIS) PO SCH ×2 (09:26→21:17)
[2019-01-13] MEDS: METOPROLOL SUCC *XL* 12.5MG PER 1/2 TAB (TopROL *XL*) PO SCH (09:26)
[2019-01-13] MEDS: SODIUM CHLORIDE 0.9% INJ 10 ML SYR IV SCH (09:27)
--- NOTE | 2019-01-13 12:09 | IPNPDOC ---
Date Seen The patient was seen on 01/13/19. Progress Note Subjective 73 Y male, multiple medical issues he is in Rehab and finished treatment of his strep endocarditis still weak and orthostatic hypotension no other events overnight Review of systems no fever no chills no chest pain no abdominal pain no diarrhea PHYSICAL EXAMINATION: GENERAL: AA Ox3, sitting in the chair and not in acute distress HEENT: PERRL. Extraocular movements intact. Clear conjunctiva CARDIOVASCULAR: irregular rate and rhythm. No murmurs, rubs, or gallops LUNGS: Clear to auscultation bilaterally. No wheezes. No rhonchi, exertional dyspnea ABDOMEN: Soft, nontender, mildly- distended. Positive bowel sounds. Normal active bowel sounds NEUROLOGICAL: Non focal EXTREMITIES: no edema, scattered ecchymosis SKIN: sacral ulcer ASSESSMENT AND PLAN: 1. orthostatic hypotension, normal TSH and Cortisol level Dr Sotelo started him on Mestinon trial 2. Atrial fibrillation. rate control and on Eliquis for anticoagulation. 3. Acute on chronic diastolic heart failure, compensated 4. acute on CKD stage 3, Cr is close to his baseline now 5. Anemia. s/p 1 unit of packed cells, will follow HH 6. Multiple myeloma. Chemotherapy on hold secondary to poor tolerance and leukopenia. 7. Strep endocarditis. Antibiotic therapy is completed. 8. Debility. Continue rehab. 9. Sacral ulcer. Continue Optifoam. A-FIB/CHADSVASC A-FIB History Current/History of A-Fib/PAF?: Yes Current PO Anticoag Therapy: Yes VS, I&O, 24H, Fishbone Vital Signs/I&O Vital Signs Date Time Temp Pulse Resp B/P (MAP) Pulse Ox O2 Delivery O2 Flow Rate FiO2 01/13/19 09:26 85 158/80 01/13/19 06:00 96.9 18 94 01/07/19 08:00 2.0 I&O- Last 24 Hours up to 6 AM 01/13/19 05:59 Intake Total 1460 ml Output Total 550 ml Balance 910 ml Laboratory Data 24H LABS Laboratory Tests 2 01/13/19 07:04: Cortisol AM Sample 20.0 01/13/19 07:06: Immature Granulocyte % (Auto) 1.0, White Blood Count 4.8, Red Blood Count 3.06L, Hemoglobin 9.1L, Hematocrit 29.0L, Mean Corpuscular Volume 94.8, Mean Corpuscular Hemoglobin 29.7, Mean Corpuscular Hemoglobin Concent 31.4L, Red Cell Distribution Width 23.7H, Platelet Count 60L, Neutrophils (%) (Auto) 68.2H, Lymphocytes (%) (Auto) 15.0L, Monocytes (%) (Auto) 14.4H, Eosinophils (%) (Auto) 1.0, Basophils (%) (Auto) 0.4, Neutrophils # (Auto) 3.3, Lymphocytes # (Auto) 0.7L, Monocytes # (Auto) 0.7, Eosinophils # (Auto) 0.1, Basophils # (Auto) 0.0, Nucleated Red Blood Cells % (auto) 1.3H, Immature Platelet Fraction 4.3, Anion Gap 7L, Glomerular Filtration Rate 56.3, Blood Urea Nitrogen 25H, Creatinine 1.33H, Sodium Level 144, Potassium Level 3.4L, Chloride Level 117H, Carbon Dioxide Level 20L, Calcium Level 8.1L, C-Reactive Protein, Quantitative 4.94H, Thyroid Stimulating Hormone (TSH) 2.140 CBC/BMP Laboratory Tests 01/13/19 07:06 Red Blood Count 3.06 L, Mean Corpuscular Volume 94.8, Mean Corpuscular Hemoglobin 29.7, Mean Corpuscular Hemoglobin Concent 31.4 L, Red Cell Distribution Width 23.7 H, Neutrophils (%) (Auto) 68.2 H, Lymphocytes (%) (Auto) 15.0 L, Monocytes (%) (Auto) 14.4 H, Eosinophils (%) (Auto) 1.0, Basophils (%) (Auto) 0.4, Neutrophils # (Auto) 3.3, Lymphocytes # (Auto) 0.7 L, Monocytes # (Auto) 0.7, Eosinophils # (Auto) 0.1, Basophils # (Auto) 0.0, Calcium Level 8.1 L Microbiology Microbiology 01/10/19 Blood Culture - Preliminary, Resulted No Growth after 48 hours. All Specime... 01/09/19 Blood Culture - Preliminary, Resulted No Growth after 72 hours. All specime... 01/09/19 Blood Culture - Preliminary, Resulted No Growth after 72 hours. All specime... 01/08/19 Urine Culture - Final, Complete YESSICA GUSTAFSON MD January 13, 2019 12:09
[2019-01-13] MEDS: FLUCONAZOLE 100 MG TAB PO SCH (13:59)
[2019-01-13 14:00] VITALS: BP_SYST 127; BP_SYST 131; BP_SYST 80; BP_DIAS 51; BP_DIAS 59; BP_DIAS 65
--- NOTE | 2019-01-13 15:50 | IPN ---
DATE: 01/13/2019 Mr. Maza denies any complaints. No fever or chills. No nausea, vomiting or diarrhea. He does not feel dizzy. He does complain of significant pain in his groin area with erythema. Temperature is 96.9, pulse 85, respirations 18, blood pressure 141/81, oxygen saturation 94% on two liters. HEART: Normal S1, S2, distant. LUNGS: Diminished breath sounds at the bases but clear. ABDOMEN: Obese, soft, nontender. GENITOURINARY (): Erythema of both testicles, groin area with intertriginous Candidiasis. EXTREMITIES: Trace edema. LABORATORY DATA: White count is 4.8, hemoglobin 9.1, hematocrit 29, platelets 60. Sodium 144, potassium 3.4, chloride 117, bicarbonate 20, BUN 25, creatinine 1.33, glucose 96, calcium 8.1, CRP 4.94, TSH 2.14, cortisol AM 20. Blood cultures 01/09/2019 and 01/10/2019, three sets are negative. IMPRESSION: 1. 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 The patient is doing well. Repeat surveillance culture from 01/09/2019 and 01/10/2019 are negative. There was concern about his line being seated by his oncologist and therefore she recommended that we remove the line even though his repeat cultures are all negative. 2. Need for IV access. His Kidxxm-X-[id number] will be removed today and a new line will be placed as an outpatient. 3. Intertriginous Candidiasis. The patient will be started on fluconazole 100 mg by mouth daily for seven days along with cornstarch. PLAN: Case has been discussed with Dr. Vargas who agree with the plan. Removal of the [id number] will be done by Dr. Dela Cruz.
[2019-01-13] MEDS ORDERED: LIDOCAINE 2% MDV 20 ML VIAL As Ordered ONE (16:17)
[2019-01-13] MEDS ORDERED: BUPIVACAINE HCL 0.5% 10 ML VIAL As Ordered ONE (16:17)
[2019-01-13 20:00] VITALS: BP 124/58
[2019-01-13] MEDS: TAMSULOSIN 0.4 MG CAP PO SCH (21:17)
[2019-01-13] MEDS: ASPIRIN 81 MG CHEW TABLET PO SCH (21:17)
[2019-01-13] MEDS: SERTRALINE 100 MG TAB PO SCH (21:18)
[2019-01-13] MEDS: ATORVASTATIN 20 MG TAB PO SCH (21:18)
[2019-01-14 06:00] VITALS: BP_SYST 109; BP_SYST 126; BP_SYST 137; BP_DIAS 64; BP_DIAS 67; BP_DIAS 68
[2019-01-14] MEDS: IPRATROPIUM 0.5MG/ALBUTEROL 2.5MG INH SOL UD 3ML (DUONEB)(J7620) NEB SCH ×3 (08:28→20:08)
[2019-01-14] MEDS: APIXABAN 5 MG TAB (ELIQUIS) PO SCH ×2 (09:00→21:00)
[2019-01-14] MEDS: SODIUM BICARBONATE 325 MG TAB PO SCH ×2 (09:00→21:00)
[2019-01-14] MEDS: FLUCONAZOLE 100 MG TAB PO SCH (09:01)
[2019-01-14] MEDS: ALLOPURINOL 300 MG TAB PO SCH (09:01)
[2019-01-14] MEDS: PYRIDOSTIGMINE 60 MG TAB PO SCH ×3 (09:01→21:00)
[2019-01-14] MEDS: ACYCLOVIR 200 MG CAPSULE PO SCH ×2 (09:01→21:00)
[2019-01-14] MEDS: FAMOTIDINE 20 MG TAB PO SCH (09:01)
[2019-01-14 14:00] VITALS: BP 159/65
--- NOTE | 2019-01-14 16:51 | IPN ---
DATE: 01/14/2019 SUBJECTIVE: The patient was seen and examined at the bedside today morning. He was actually sitting in the sofa. He is afebrile and hemodynamically stable. Blood work was not done today morning; however, his renal function was improving as per yesterday's labs. He denies any active complaints at this time; however, he does report that he was having urinary retention, and he needed straight catheterization yesterday. OBJECTIVE: Vital signs: Temperature is 98.3 degrees Fahrenheit, blood pressure 126/67, pulse is 75, respiratory rate of 18, saturating 91% on room air. Intake and output: Urine output recorded yesterday is 1000 mL, which was a postvoid residual. No other voids are recorded. Weight in the bed scale is 107.2 kg. PHYSICAL EXAMINATION: The patient is awake and alert, sitting up in the sofa. No apparent distress. HEAD AND NECK: Extraocular muscles intact. Pupils equally round and reactive to light. Mucous membranes are moist. Neck is supple. There is no jugular venous distention (JVD). CARDIOVASCULAR: S1, S2. Trace edema of the bilateral upper extremities and lower extremities. RESPIRATORY: Chest is clear to auscultation bilaterally. Bilateral equal air entry. No rales or rhonchi. ABDOMEN: Soft, obese, positive bowel sounds. Nontender. No organomegaly. MUSCULOSKELETAL: No clubbing or cyanosis. Pulses are 2+. Central nervous system: The patient is able to move all extremities. LABORATORY REVIEW: CBC done yesterday showed a hemoglobin of 9.1 and platelets of 60. BMP done yesterday morning showed sodium 144, potassium 3.4, chloride 117, bicarbonate 20, BUN 25, creatinine is 1.3. C-reactive protein was 4.9. TSH is 2.1. CURRENT INPATIENT MEDICATIONS: The patient's medications were all reviewed by me. He was started on fluconazole yesterday. No diuretics at this point. ASSESSMENT AND PLAN: 1. Chronic kidney disease, stage III. Patient's renal function is stable and improving. Creatinine was down to 1.3 yesterday. The patient has urinary retention, and he required a straight catheterization. I will repeat his renal profile tomorrow morning. 2. Chronic diastolic congestive heart failure. Volume status is optimal. The patient actually gets orthostatic hypotension with use of diuretics. No need of diuretic at this time. 3. Non-anion gap metabolic acidosis. The patient is currently on sodium bicarbonate 350 mg by mouth twice a day. 4. Chronic gout secondary to chronic kidney disease. Continue current dose of allopurinol 300 mg by mouth daily. He is asymptomatic at this point. MTDD
[2019-01-14 20:00] VITALS: BP 111/64
[2019-01-14] MEDS: TAMSULOSIN 0.4 MG CAP PO SCH (21:00)
[2019-01-14] MEDS: ASPIRIN 81 MG CHEW TABLET PO SCH (21:00)
[2019-01-14] MEDS: SERTRALINE 100 MG TAB PO SCH (21:00)
[2019-01-14] MEDS: ATORVASTATIN 20 MG TAB PO SCH (21:00)
[2019-01-15 06:00] VITALS: BP 143/73
--- NOTE | 2019-01-15 07:16 | IPN ---
DATE OF SERVICE: 01/14/2019 73-year-old male with a history of atrial flutter, controlled ventricular response, multiple myeloma, large B-cell lymphoma, chronic obstructive pulmonary disease, deep vein thrombosis, chronic kidney disease Stage 3, who has been treated for Strep endocarditis. He had a four week course of antibiotic therapy. He has a history of acute diastolic failure. He was treated, stabilized and discharged to the rehabilitation unit for mobilization and strengthening. He has been having orthostasis. His medications have been adjusted. Lasix and diuretics have been monitored by nephrology. He has been started on Mestinon by Dr. Vargas and there has been improvement. He is feeling better today. This morning blood pressure supine 126/67, standing 109/68. He did not feel lightheaded. He was having problem with urinary retention and did need to be straight cathed yesterday. This was probably secondary to not having had his Flomax and that has now been restarted. Urine culture has been sent. REVIEW OF SYSTEMS: Today otherwise unremarkable. OBJECTIVE: Blood pressure currently sitting in the chair taken by myself is 128/70 with a pulse of 84, respirations 18. The patient is alert and oriented times three. Pupils equal and react to light. Pharynx, tongue and gums pink and moist. Tongue is midline. Neck is supple, without lymphadenopathy. No thyromegaly. No goiter. Jugular venous pressure is at clavicle. Chest decreased breath sounds, no wheeze or retraction. Heart is regular. Abdomen benign. Bowel sounds positive. Genitourinary ()/Rectal: Not done. Trace bilateral lower extremity edema. Peripheral pulses equal and palpable bilaterally. IMPRESSION AND PLAN: 1. Orthostatic hypotension. TSH, cortisol normal. Mestinon was started, showing improvement. 2. Atrial fibrillation, rate controlled. Continue Eliquis. 3. Acute on chronic diastolic heart failure, compensated. Diuretics per nephrology. 4. Chronic stage 3 kidney disease. Creatinine and protein is baseline. Recheck labs in a.m. 5. Anemia. Status post one unit of packed cells. H/H stable. 6. Multiple myeloma. Chemotherapy remains on hold secondary to poor tolerance and leukopenia. 7. Strep endocarditis. Antibiotic therapy is completed. Blood cultures repeat have been negative. 8. Debility, deconditioning. Continue rehabilitation. 9. Sacral ulcer. Continuing Optifoam. 10. Urinary retention. Flomax has been restarted. Monitor urine output.
[2019-01-15] MEDS: IPRATROPIUM 0.5MG/ALBUTEROL 2.5MG INH SOL UD 3ML (DUONEB)(J7620) NEB SCH ×3 (08:06→20:46)
[2019-01-15 08:27] LABS: HEMATOCRIT 27.5 % (42.0-52.0); HEMOGLOBIN 8.6 g/dl (13.5-17.5); MEAN CORPUSCULAR HEMOGLOBIN 29.6 pg (27.0-33.0); MEAN CORPUSCULAR HGB CONC 31.3 g/dl (32.0-36.5); MEAN CORPUSCULAR VOLUME 94.5 fl (80.0-96.0); RED BLOOD COUNT 2.91 10^6/uL (4.30-6.10); WHITE BLOOD COUNT 5.6 10^3/uL (4.0-10.0)
[2019-01-15 08:29] LABS: PLATELET COUNT, AUTOMATED 62 10^3/uL (150-450)
[2019-01-15] MEDS: ACYCLOVIR 200 MG CAPSULE PO SCH ×2 (08:46→20:05)
[2019-01-15] MEDS: FLUCONAZOLE 100 MG TAB PO SCH (08:46)
[2019-01-15] MEDS: ALLOPURINOL 300 MG TAB PO SCH (08:46)
[2019-01-15] MEDS: APIXABAN 5 MG TAB (ELIQUIS) PO SCH ×2 (08:47→20:04)
[2019-01-15] MEDS: PYRIDOSTIGMINE 60 MG TAB PO SCH ×3 (08:47→20:04)
[2019-01-15] MEDS: SODIUM BICARBONATE 325 MG TAB PO SCH ×2 (08:47→20:05)
[2019-01-15] MEDS: FAMOTIDINE 20 MG TAB PO SCH (08:47)
[2019-01-15 08:56] LABS: BLOOD UREA NITROGEN 17 MG/DL (7-18); CARBON DIOXIDE LEVEL 23 MEQ/L (21-32); CHLORIDE LEVEL 116 MEQ/L (98-107); CREATININE FOR GFR 1.13 MG/DL (0.70-1.30); GLOMERULAR FILTRATION RATE > 60.0 (>42); GLUCOSE, FASTING 91 MG/DL (70-100); POTASSIUM SERUM 3.6 MEQ/L (3.5-5.1); SODIUM LEVEL 145 MEQ/L (136-145)
[2019-01-15 10:00] VITALS: BP_SYST 121; BP_SYST 142; BP_SYST 83; BP_DIAS 48; BP_DIAS 68
--- NOTE | 2019-01-15 10:45 | IPNPDOC ---
Date Seen The patient was seen on 01/15/19. Progress Note SUBJECTIVE: Patient reports feeling well and denies any complaints. There were issues with orthostatic hypotension and dizziness with standing as well as urinary retention. Patient states that those symptoms had almost complete resolved after new medications were added. OBJECTIVE PHYSICAL EXAMINATION: VITAL SIGNS: Please see below. General: No acute distress, Alert Eyes: Normal sclera, EOMI, SCOUT HENT: Atraumatic, neck supple, moist mucous membranes Cardiovascular: Normal rate, normal rhythm. No murmurs appreciated. Pulmonary: Clear to auscultation b/l GI: Soft, nontender Skin: Warm and dry Neuro: CN grossly intact. No focal deficits. Strengths equal b/l. Psych: oriented x 3 LABORATORY DATA, IMAGING STUDIES, MICROBIOLOGY: Please see below. ASSESSMENT AND PLAN: 1. Strep endocarditis- s/p ABX completion. Follow up cultures had been negative. 2. Afib- rate controlled. c/w Eliquis for AC. 3. Orthostatic hypotension- Mestion initiated with improvement of symptoms. 4. HFpEF- c/w diureses as needed. 5. CKD- monitor BMP, kidney function appeared stable around baseline. 6. Urinary retention- flomax restarted with improvement in symptoms. Patient noted no difficulty with urination anymore. VS, I&O, 24H, Fishbone Vital Signs/I&O Vital Signs Date Time Temp Pulse Resp B/P (MAP) Pulse Ox O2 Delivery O2 Flow Rate FiO2 01/15/19 06:00 97.7 81 17 143/73 (96) 96 I&O- Last 24 Hours up to 6 AM 01/15/19 06:00 Intake Total 1020 ml Output Total 550 ml Balance 470 ml Laboratory Data 24H LABS Laboratory Tests 2 01/15/19 08:02: Nucleated Red Blood Cells % (auto) 1.1H, Immature Platelet Fraction 3.5, Anion Gap 6L, Glomerular Filtration Rate > 60.0, Blood Urea Nitrogen 17, Creatinine 1.13, Sodium Level 145, Potassium Level 3.6, Chloride Level 116H, Carbon Dioxide Level 23, Calcium Level 8.0L CBC/BMP Laboratory Tests 01/15/19 08:02 Red Blood Count 2.91 L, Mean Corpuscular Volume 94.5, Mean Corpuscular Hemoglobin 29.6, Mean Corpuscular Hemoglobin Concent 31.3 L, Red Cell Distribution Width 23.0 H, Calcium Level 8.0 L Microbiology Microbiology 01/10/19 Blood Culture - Preliminary, Resulted No Growth after 72 hours. All specime... 01/09/19 Blood Culture - Final, Complete NO GROWTH AFTER 5 DAYS 01/09/19 Blood Culture - Final, Complete NO GROWTH AFTER 5 DAYS 01/13/19 Urine Culture, Received Pending 01/08/19 Urine Culture - Final, Complete JESSICA ENGLE MD January 15, 2019 10:45
[2019-01-15 14:00] VITALS: BP 128/70
[2019-01-15] MEDS: FUROSEMIDE 20 MG TAB PO SCH (18:30)
[2019-01-15 19:02] LABS: FERRITIN 509 NG/ML (26-388); IRON (FE) 29 UG/DL (65-175); PERCENT SATURATION 15.7 % (19.7-50.0); TOTAL IRON BINDING CAPACITY 185 UG/DL (250-450)
[2019-01-15 20:00] VITALS: BP 137/79
[2019-01-15] MEDS: TAMSULOSIN 0.4 MG CAP PO SCH (20:04)
[2019-01-15] MEDS: ASPIRIN 81 MG CHEW TABLET PO SCH (20:05)
[2019-01-15] MEDS: ATORVASTATIN 20 MG TAB PO SCH (20:05)
[2019-01-15] MEDS: SERTRALINE 100 MG TAB PO SCH (20:05)
--- NOTE | 2019-01-16 02:18 | IPN ---
DATE OF SERVICE: 01/15/2019 SUBJECTIVE: The patient was seen and examined at the bedside today morning. He was sitting in the sofa. He is afebrile, hemodynamically stable. His renal function is stable. Creatinine has improved to 1.13 today. He denies any active complaints. OBJECTIVE: VITAL SIGNS: Temperature is 97.5 degrees Fahrenheit, blood pressure 128/70, pulse is 89, respiratory rate of 80, saturating 94% on room air. INTAKE AND OUTPUT: Urine output recorded is 200 mL since overnight. The weight in the bed scale is 106.2 kg. PHYSICAL EXAMINATION: GENERAL: The patient is awake, alert, oriented x3, obese, sitting on the sofa. HEAD AND NECK EXAM: Extraocular muscles intact. Pupils are equally round and reactive to light. Mucous membranes are moist. Neck is supple. There is no jugular venous distention (JVD). CARDIOVASCULAR SYSTEM: S1, S2. Trace edema of the bilateral lower extremities. RESPIRATORY: Chest is clear to auscultation bilaterally. Bilateral equal air entry. No rales or rhonchi. ABDOMEN: Soft, obese, positive bowel sounds. Nontender. No organomegaly. MUSCULOSKELETAL: No clubbing or cyanosis. Pulses are 2+. CENTRAL NERVOUS SYSTEM (MOLD WASHER): No focal deficits. He moves all extremities. LABORATORY REVIEW: Complete blood count (CBC) showed white blood cell (WBC) 5.6, hemoglobin 8.6, platelets are 62. Basic metabolic panel (BMP) showed sodium 145, potassium 3.6 chloride 116, bicarbonate 23, BUN 17, creatinine is 1.1. CURRENT INPATIENT MEDICATIONS: The patient's medications were all reviewed by me. There is no change in the medications today as compared with yesterday. ASSESSMENT/PLAN: 1. Chronic kidney disease stage III. Patient's renal function has improved back to baseline. Creatinine is 1.1. I am going to restart low dose of diuretic now. 2. Chronic diastolic congestive heart failure. The patient is beginning to retain fluid now. I am going to start low dose of Lasix 20 mg by mouth daily with holding parameters. 3. Non-anion gap metabolic acidosis. Bicarbonate level is improving. Continue current dose of her sodium bicarbonate of 350 mg by mouth twice a day. 4. Anemia. The patient is status post 1 unit of packed red blood cells (PRBCs) transfusion. Hemoglobin is low again. I am going to check the iron levels of this patient and will transfuse iron as needed.
[2019-01-16 06:00] VITALS: BP 138/70
[2019-01-16 06:06] VITALS: BP_SYST 109; BP_SYST 138; BP_SYST 91; BP_DIAS 52; BP_DIAS 62; BP_DIAS 70
[2019-01-16] MEDS: IPRATROPIUM 0.5MG/ALBUTEROL 2.5MG INH SOL UD 3ML (DUONEB)(J7620) NEB SCH ×3 (07:09→20:07)
[2019-01-16] MEDS: FUROSEMIDE 20 MG TAB PO SCH (09:00)
[2019-01-16] MEDS: ACYCLOVIR 200 MG CAPSULE PO SCH ×2 (09:12→20:06)
[2019-01-16] MEDS: FLUCONAZOLE 100 MG TAB PO SCH (09:14)
[2019-01-16] MEDS: FAMOTIDINE 20 MG TAB PO SCH (09:14)
[2019-01-16] MEDS: SODIUM BICARBONATE 325 MG TAB PO SCH ×2 (09:14→20:04)
[2019-01-16] MEDS: APIXABAN 5 MG TAB (ELIQUIS) PO SCH ×2 (09:14→20:05)
[2019-01-16] MEDS: PYRIDOSTIGMINE 60 MG TAB PO SCH ×3 (09:14→20:06)
[2019-01-16] MEDS: ALLOPURINOL 300 MG TAB PO SCH (09:15)
[2019-01-16] MEDS: ACETAMINOPHEN TAB 650MG DOSE (2X325MG) PO PRN (10:37)
[2019-01-16 14:00] VITALS: BP 118/58
--- NOTE | 2019-01-16 15:49 | IPNPDOC ---
Subjective Date Seen The patient was seen on 01/16/19. Subjective Chief Complaint/HPI Patient is a 73-year-old male, primary history significant for atrial flutter, multiple myeloma, large B-cell lymphoma, COPD, DVT, CKD 3, admitted and treated for neutropenic fever. Patient was also found to have strep endocarditis. He was treated with a 4 week course of antibiotic therapy. During hospitalization he was also found to have acute diastolic heart failure and worsening dyspnea. Repeat echocardiogram showed persisting mobile echodensity suggesting presence of vegetation been unchanged appearance from his prior study. He was discharged to rehabilitation unit for mobilization and strengthening due to physical deficits noted with prolonged hospitalization. Events since last encounter Up to chair bedside at time of evaluation. Family is present. Denies chest pain or shortness of breath. Still has marked dyspnea with minimal activity. Staff report orthostatic hypotension is improving. Objective Physical Examination General Exam: Positive: Alert, Cooperative, No Acute Distress Eye Exam: Positive: PERRLA, EOMI ENT Exam: Positive: Atraumatic, Mucous membr. moist/pink, Pinna Normal Neck Exam: Positive: Supple; Negative: JVD, thyromegaly Chest Exam: Positive: Clear to auscultation, Normal air movement Heart Exam: Positive: Rate Normal, Regular Rhythm Telemetry: Positive: Sinus Abdomen Exam: Positive: Normal bowel sounds, Soft; Negative: Tenderness Extremity Exam: Negative: Clubbing, Cyanosis, Edema Skin Exam: Positive: Nl turgor and temperature, Other skin issue (sacral decub) Neuro Exam: Positive: Normal Speech, Cranial Nerves 3-12 NL Psych Exam: Positive: Mental status NL, Memory Intact, Oriented x 3 Assessment /Plan Problems (1) Bacterial endocarditis Problem Text: -Patient has completed a course of antibiotic therapy -Was followed and managed by infectious disease -No signs of acute infectious process persisting at this time (2) Anemia Problem Text: -Likely due to underlying multiple myeloma -S/P transfusion of multiple units pack red blood cells -Continue to monitor hemoglobin and hematocrit (3) Atrial fibrillation and flutter Problem Text: -Paroxysmal -Rate is controlled -Continue anticoagulation therapy (4) Orthostatic hypotension Problem Text: -Started on midodrine by nephrology -Monitor tolerance and response to therapy -Continue safety precaution, fall precaution (5) Diastolic congestive heart failure with preserved left ventricular function, NYHA class 4 Problem Text: -Currently euvolemic -Continue fluid restriction -Lasix only as needed (6) CKD (chronic kidney disease), stage III Problem Text: -Possibly worsened by hypotension -Improved -Nephrology on board, appreciate input and recommendations (7) Urinary retention Problem Text: -continue Flomax (8) DVT prophylaxis Problem Text: -Fully anticoagulated with eliquis Plan/VTE VTE Prophylaxis Ordered?: Yes VS, I&O, 24H, Fishbone Vital Signs/I&O Vital Signs Date Time Temp Pulse Resp B/P (MAP) Pulse Ox O2 Delivery O2 Flow Rate FiO2 01/16/19 06:06 95 138/70 (92) 96 109/62 (78) 91/52 (65) 01/16/19 06:00 98.1 18 91 I&O- Last 24 Hours up to 6 AM 01/16/19 05:59 Intake Total 900 ml Output Total 550 ml Balance 350 ml Laboratory Data Microbiology Microbiology 01/10/19 Blood Culture - Final, Complete NO GROWTH AFTER 5 DAYS 01/09/19 Blood Culture - Final, Complete NO GROWTH AFTER 5 DAYS 01/09/19 Blood Culture - Final, Complete NO GROWTH AFTER 5 DAYS 01/13/19 Urine Culture - Final, Complete Enterococcus Faecalis Pseudomonas Aeruginosa 01/08/19 Urine Culture - Final, Complete MOISES MATSON [employer]ONE January 16, 2019 15:49
[2019-01-16] MEDS: MIDODRINE 2.5 MG TAB PO SCH (16:54)
--- NOTE | 2019-01-16 16:55 | IPN ---
DATE: 01/16/2019 SUBJECTIVE: The patient was seen and examined at the bedside today morning. He was actually sitting in the wheelchair and came back from exercise when I saw him. The patient is still having orthostatic hypotension when he stands up. He was started on furosemide yesterday with holding parameters. However, because of the low blood pressures, he has not received any dose. OBJECTIVE: VITAL SIGNS: Temperature is 97.6 degrees Fahrenheit, blood pressure 118/58, standing blood pressure is 91/52, pulse is 92, respiratory rate of 17, saturating 94% on room air. INTAKE AND OUTPUT: Urine output is not recorded well. Weight in the bed scale is not available. PHYSICAL EXAMINATION: GENERAL: The patient is awake, alert, oriented times three, sitting in the wheelchair, in no apparent distress. HEAD AND NECK: Extraocular muscles intact. Pupils equally round and reactive to light. Mucous membranes are moist. Neck is supple. There is no jugular venous distention (JVD). CARDIOVASCULAR: S1, S3. Trace edema of the lower extremities and he has a compression bandage. RESPIRATORY: Chest is clear to auscultation bilaterally. Bilateral equal air entry. No rales or rhonchi. ABDOMEN: Soft, obese, positive bowel sounds, nontender. No organomegaly. MUSCULOSKELETAL: No clubbing or cyanosis. Pulses are 2+. CENTRAL NERVOUS SYSTEM (PIE CHEF): No focal deficit. Power is 5/5 in bilateral upper extremities. LABORATORY REVIEW: CBC showed a hemoglobin of 8.6 yesterday and BMP done yesterday showed a creatinine of 1.1. CURRENT INPATIENT MEDICATIONS: The patient's medications were all reviewed by me. I have stopped the furosemide dose. I have started the patient on low dose of her midodrine 2.5 mg by mouth three times a day. ASSESSMENT AND PLAN: 1. Chronic kidney disease, stage III. The patient's renal function is stable. Latest creatinine was 1.1 which is optimal. He cannot tolerate any more diuretics because he has hypotension. 2. Orthostatic hypotension. The patient's volume status is optimal. He actually has slight amount of edema. He is unable to tolerate any diuretics. I have started the patient on midodrine 2.5 mg by mouth three times a day. 3. Non anion gap metabolic acidosis. Continue current dose of sodium bicarbonate 350 mg by mouth twice a day. 4. Iron-deficiency anemia. I am going to start the patient on IV iron infusion.
[2019-01-16] MEDS: IRON SUCROSE 200 MG in NS 100 ML IV SCH (18:45)
[2019-01-16] MEDS: ASPIRIN 81 MG CHEW TABLET PO SCH (20:04)
[2019-01-16] MEDS: SERTRALINE 100 MG TAB PO SCH (20:05)
[2019-01-16] MEDS: TAMSULOSIN 0.4 MG CAP PO SCH (20:05)
[2019-01-16] MEDS: ATORVASTATIN 20 MG TAB PO SCH (20:05)
[2019-01-16 22:00] VITALS: BP 146/68
[2019-01-16] MEDS ORDERED: MEST60TA PO (22:05)
[2019-01-16] MEDS ORDERED: FAMO20TA PO (22:05)
[2019-01-16] MEDS ORDERED: SODI325T9 PO (22:05)
[2019-01-16] MEDS ORDERED: ZYLO300T6 PO (22:05)
[2019-01-16] MEDS ORDERED: FLOM0.4C39 PO (22:05)
[2019-01-16] MEDS ORDERED: ASPI81CH8 PO (22:05)
[2019-01-16] MEDS ORDERED: SERT-138 PO (22:05)
[2019-01-16] MEDS ORDERED: ELIQ5TAB PO (22:05)
[2019-01-16] MEDS ORDERED: ACYC200C8 PO (22:05)
[2019-01-16] MEDS ORDERED: ATOR1TAB21 PO (22:05)
[2019-01-16] MEDS ORDERED: FLUC10TA PO (22:05)
[2019-01-17 05:51] VITALS: BP_SYST 133; BP_SYST 148; BP_DIAS 52; BP_DIAS 63; BP_DIAS 70
[2019-01-17] MEDS: IPRATROPIUM 0.5MG/ALBUTEROL 2.5MG INH SOL UD 3ML (DUONEB)(J7620) NEB SCH ×3 (07:25→19:13)
[2019-01-17] MEDS: MIDODRINE 2.5 MG TAB PO SCH ×3 (08:00→17:25)
[2019-01-17] MEDS: SODIUM BICARBONATE 325 MG TAB PO SCH ×2 (08:13→20:41)
[2019-01-17] MEDS: FLUCONAZOLE 100 MG TAB PO SCH (08:13)
[2019-01-17] MEDS: APIXABAN 5 MG TAB (ELIQUIS) PO SCH (08:13)
[2019-01-17] MEDS: FAMOTIDINE 20 MG TAB PO SCH (08:13)
[2019-01-17] MEDS: ACYCLOVIR 200 MG CAPSULE PO SCH ×2 (08:13→20:42)
[2019-01-17] MEDS: ALLOPURINOL 300 MG TAB PO SCH (08:13)
[2019-01-17] MEDS: PYRIDOSTIGMINE 60 MG TAB PO SCH ×3 (08:14→20:42)
[2019-01-17 09:13] LABS: BASO % 0.1 % (0.0-1.0); EOS # 0.1 10^3/uL (0.0-0.50); EOS % 1.4 % (0.0-3.0); HEMATOCRIT 25.3 % (42.0-52.0); HEMOGLOBIN 8.1 g/dl (13.5-17.5); LYMPH # 0.8 10^3/uL (1.5-4.5); LYMPH % 10.8 % (24.0-44.0); MEAN CORPUSCULAR HEMOGLOBIN 30.1 pg (27.0-33.0); MEAN CORPUSCULAR VOLUME 94.1 fl (80.0-96.0); MONO # 0.7 10^3/uL (0.0-0.8); MONO % 9.5 % (0.0-5.0); NEUTROPHILS # 5.6 10^3/uL (1.8-7.7); NEUTROPHILS % 77.4 % (36.0-66.0); RED BLOOD COUNT 2.69 10^6/uL (4.30-6.10); WHITE BLOOD COUNT 7.3 10^3/uL (4.0-10.0)
[2019-01-17 09:29] LABS: PLATELET COUNT, AUTOMATED 64 10^3/uL (150-450)
[2019-01-17 09:33] LABS: CALCIUM LEVEL 7.3 MG/DL (8.8-10.2); CREATININE FOR GFR 1.39 MG/DL (0.70-1.30); GLOMERULAR FILTRATION RATE 53.5 (>42); POTASSIUM SERUM 3.5 MEQ/L (3.5-5.1)
--- NOTE | 2019-01-17 11:40 | IPNPDOC ---
Subjective Date Seen The patient was seen on 01/17/19. Subjective Chief Complaint/HPI Patient is a 73-year-old male, primary history significant for atrial flutter, multiple myeloma, large B-cell lymphoma, COPD, DVT, CKD 3, admitted and treated for neutropenic fever. Patient was also found to have strep endocarditis. He was treated with a 4 week course of antibiotic therapy. During hospitalization he was also found to have acute diastolic heart failure and worsening dyspnea. Repeat echocardiogram showed persisting mobile echodens ity suggesting presence of vegetation been unchanged appearance from his prior study. He was discharged to rehabilitation unit for mobilization and strengthening due to physical deficits noted with prolonged hospitalization. Events since last encounter Patient will be possibly discharged today. He has no complaints, no chills, no headache, no abdominal pain, nausea, vomiting.Staff reported patient urine dark colored. he denies dysuria symptoms Objective Physical Examination General Exam: Positive: Alert, Cooperative, No Acute Distress Eye Exam: Positive: PERRLA, EOMI ENT Exam: Positive: Atraumatic, Mucous membr. moist/pink, Pinna Normal Neck Exam: Positive: Supple; Negative: JVD, thyromegaly Chest Exam: Positive: Clear to auscultation, Normal air movement Heart Exam: Positive: Rate Normal, Regular Rhythm Telemetry: Positive: Sinus Abdomen Exam: Positive: Normal bowel sounds, Soft; Negative: Tenderness Extremity Exam: Negative: Clubbing, Cyanosis, Edema Skin Exam: Positive: Nl turgor and temperature, Other skin issue (sacral decub, intertrigino) Neuro Exam: Positive: Normal Speech, Cranial Nerves 3-12 NL Psych Exam: Positive: Mental status NL, Memory Intact, Oriented x 3 Assessment /Plan Problems (1) Bacterial endocarditis Problem Text: -Patient has completed a course of antibiotic therapy -repeat ISMAEL unchanged (2) Anemia Problem Text: -Likely due to underlying multiple myeloma --appointment with oncology today (3) Atrial fibrillation and flutter Problem Text: -Paroxysmal -Rate is controlled -Continue anticoagulation therapy (4) Orthostatic hypotension Problem Text: -continued on midodrine -tolerating well -blood pressure is improved -Continue safety precaution, fall precaution (5) Diastolic congestive heart failure with preserved left ventricular function, NYHA class 4 Problem Text: -euvolemic -continue other guideline directed therapy for management of CHF (6) CKD (chronic kidney disease), stage III Problem Text: -Possibly worsened by hypotension and anemia -Improved -Nephrology on board, managing (7) Urinary retention Problem Text: -continue Flomax -follow urinalysis is urine obtained prior to discharge today (8) DVT prophylaxis Problem Text: -Fully anticoagulated with eliquis Plan/VTE VTE Prophylaxis Ordered?: Yes VS, I&O, 24H, Fishbone Vital Signs/I&O Vital Signs Date Time Temp Pulse Resp B/P (MAP) Pulse Ox O2 Delivery O2 Flow Rate FiO2 01/17/19 07:25 84 01/17/19 05:51 148/70 (96) 133/63 (86) 133/52 (79) 01/16/19 22:00 98.0 18 92 I&O- Last 24 Hours up to 6 AM 01/17/19 06:00 Intake Total 840 ml Output Total 350 ml Balance 490 ml Laboratory Data 24H LABS Laboratory Tests 2 01/17/19 08:51: Immature Granulocyte % (Auto) 0.8, White Blood Count 7.3, Red Blood Count 2.69L, Hemoglobin 8.1L, Hematocrit 25.3L, Mean Corpuscular Volume 94.1, Mean Corpuscular Hemoglobin 30.1, Mean Corpuscular Hemoglobin Concent 32.0, Red Cell Distribution Width 23.5H, Platelet Count 64L, Neutrophils (%) (Auto) 77.4H, Lymphocytes (%) (Auto) 10.8L, Monocytes (%) (Auto) 9.5H, Eosinophils (%) (Auto) 1.4, Basophils (%) (Auto) 0.1, Neutrophils # (Auto) 5.6, Lymphocytes # (Auto) 0.8L, Monocytes # (Auto) 0.7, Eosinophils # (Auto) 0.1, Basophils # (Auto) 0.0, Nucleated Red Blood Cells % (auto) 0.4H, Immature Platelet Fraction 2.9, Anion Gap 10, Glomerular Filtration Rate 53.5, Blood Urea Nitrogen 23H, Creatinine 1.39H, Sodium Level 144, Potassium Level 3.5, Chloride Level 114H, Carbon Dioxide Level 20L, Calcium Level 7.3L CBC/BMP Laboratory Tests 01/17/19 08:51 Red Blood Count 2.69 L, Mean Corpuscular Volume 94.1, Mean Corpuscular Hemoglobin 30.1, Mean Corpuscular Hemoglobin Concent 32.0, Red Cell Distribution Width 23.5 H, Neutrophils (%) (Auto) 77.4 H, Lymphocytes (%) (Auto) 10.8 L, Monocytes (%) (Auto) 9.5 H, Eosinophils (%) (Auto) 1.4, Basophils (%) (Auto) 0.1, Neutrophils # (Auto) 5.6, Lymphocytes # (Auto) 0.8 L, Monocytes # (Auto) 0.7, Eosinophils # (Auto) 0.1, Basophils # (Auto) 0.0, Calcium Level 7.3 L Microbiology Microbiology 01/10/19 Blood Culture - Final, Complete NO GROWTH AFTER 5 DAYS 01/09/19 Blood Culture - Final, Complete NO GROWTH AFTER 5 DAYS 01/09/19 Blood Culture - Final, Complete NO GROWTH AFTER 5 DAYS 01/13/19 Urine Culture - Final, Complete Enterococcus Faecalis Pseudomonas Aeruginosa 01/08/19 Urine Culture - Final, Complete [facility] January 17, 2019 11:40
--- NOTE | 2019-01-17 11:55 | IPN ---
DATE OF SERVICE: 01/17/2019 SUBJECTIVE: The patient was seen and examined at the bedside today morning. His blood pressures are better. He was started on midodrine tablets yesterday. He denies any more dizziness. Renal function is stable. The patient reports that he is getting ready to be discharged today. OBJECTIVE: Vital signs: Temperature is 98 degrees Fahrenheit, blood pressure 148/70, pulse is 94, respiratory rate of 18, saturating 92% on room air. Intake and output: Urine output is not recorded well. Weight in the bed scale is not available. PHYSICAL EXAMINATION: General: The patient is awake, alert, oriented times three, morbidly obese, sitting up in the bed. Head and neck examination: Extraocular muscles intact. Pupils equally round and reactive to light. Mucous membranes are moist. Neck is supple. There is no jugular venous distention (JVD). Cardiovascular: S1, S2. Trace edema of the lower extremities, and he has compression bandage on the lower extremities. Respiratory: Chest is clear to auscultation bilaterally. Bilateral equal air entry. No rales or rhonchi. Abdomen: Soft, obese, positive bowel sounds. Nontender. No organomegaly. Musculoskeletal: No clubbing or cyanosis. Pulses are 2+. Central nervous system (HOSE SPRAYER): No focal deficit. Power is 5/5 in all extremities. LABORATORY REVIEW: Complete blood count (CBC) showed a WBC of 7.3, hemoglobin 8.1, platelets are 64. Basic metabolic profile (BMP) showed sodium 144, potassium 3.5, chloride 114, bicarbonate is 20, BUN 23, creatinine 1.3. CURRENT INPATIENT MEDICATIONS: The patient's medications were all reviewed by me. The patient was started on intravenous (IV) Venofer injections yesterday. ASSESSMENT AND PLAN: 1. Chronic kidney disease stage III. The patient's renal function is stable. Creatinine has been fluctuating at around 1.3, which is close to his baseline. 2. Orthostatic hypotension. The patient's blood pressure is significantly better after addition of midodrine. 3. Non-anion gap metabolic acidosis. Continue current dose of sodium bicarbonate 350 mg by mouth twice a day. 4. Iron-deficiency anemia. The patient got one dose of IV Venofer yesterday. No need of a blood transfusion at this point.
[2019-01-17 14:00] VITALS: BP_SYST 100; BP_SYST 117; BP_SYST 126; BP_DIAS 59; BP_DIAS 66; BP_DIAS 67
--- NOTE | 2019-01-17 16:49 | REP ---
Clinical: Gross hematuria. Technique: Real time townsend scale ultrasound examination using curved array transducer. Findings: Evidence of prior right nephrectomy noted. The left kidney is normal in contour, size, echogenicity, and reniform shape without hydronephrosis, nephrolithiasis, cystic or renal mass lesion. Left kidney measures 11.3 x 5.9 x 6.5 cm. The bladder is normal in appearance. Impression: Normal left kidney and bladder. Evidence for prior right nephrectomy. Electronically Signed by Ruslan Forrester MD 01/17/2019 04:40 P
--- NOTE | 2019-01-17 18:25 | IPNPDOC ---
PM&R Progress Note DATE OF SERVICE: January 13, 2019 Physician Relations Manager Progress Note Subjective: PAtient seen in his room preparing to go home today, however had bout of bloody urine with drop in H/H and agreed to stay a few more days until this stabilizes. His was present who understood and agreed. Patient reports his dizziness has significant improved since starting Mestinon and this medication was discussed again with his . REVIEW OF SYSTEMS: The following is a completed review of systems and has been reviewed. Review of systems otherwise unremarkable. PAIN: Patient self reports no pain EYES: Negative EARS, NOSE, & THROAT: Denies dysphagia or throat pain CARDIOVASCULAR: denies chest pain or palpitations, +orthostatics PULMONARY: +shortness of breath at rest and on exertion (improving) GASTROINTESTINAL:+diarrhea (improved) GENITOURINARY: Negative for dysuria MUSCULOSKELETAL: generalized weakness NEUROLOGICAL: no tremor or seizure activity HEMATOLOGICAL: +leukopenia and anemia SKIN +sacral ulcer PSYCHIATRIC: Unremarkable All other review of systems found to be negative. PHYSICAL EXAMINATION: VITAL SIGNS: Please see below. GENERAL: Pleasant and cooperative. No acute distress. HEENT: PERRL. Extraocular movements intact. Clear conjunctiva CARDIOVASCULAR: Regular rate and rhythm. No murmurs, rubs, or gallops LUNGS: Clear to auscultation bilaterally. No wheezes. No rhonchi, exertional dyspnea ABDOMEN: Soft, nontender, mildly- distended. Positive bowel sounds. Normal active bowel sounds NEUROLOGICAL: Alert and oriented times three. Cranial nerves II through XII grossly intact. Sensation grossly intact EXTREMITIES:5-\5 strength bilateral upper extremities.4-/5 hip flexors, knee extensors, ankle DF, 0/5 EHL bilat LE no edema, scattered ecchymosis SKIN: sacral ulcer with dime-size area stage 2 w ASSESSMENT:73-year-old M with past medical history of multiple myeloma, endocarditis who presents status post dehydration, fever, weakness due to endocarditis. PLAN: 1. Rehab: PT, OT, assess for DME needs, dyspneic with exertion, able to ambulate short distances with RW- goal will be to home at wheelchair level 2. Neuro: avoid deliriogenic meds, stable 3. cardiac: recent dx of Strep Infantarius Endocarditis, per ID recs, s/p IV abx, last dose of Ceftriaxone 01/05/19- will consult, discussed with medicine and Dr. Lobato- hold Eliquis and ASA for now until hematuria resolves and H/H stabilizes, then can start Eliquis only at 2.5mg po BID- recs appreciated -pmh PM with 3rd degree AVB s/p PM with diastolic CHF- medicine consulted to follow -patient reports dizziness much improved for the past four days even with standing despite low BPs recorded-c/u to hold beta-blockers, c/u to hold diuretics -postural orthostatic hypotension improving on Mestinon 30mg TID, c/u acewrapping LE prior to therapy- renal ordered low dose Midodrine with holding parameters 4. Resp: pmh COPD with interstitial lung disease on recent CT, c/u breathing treatments and supplemental 02, monitor for worsening infection -repeat CXR 01/10/19 no acute infiltrate, no vascular congestion 5. Heme/onc: pmh multiple myeloma, chemo on hold- patient leuokopenic, anemic, and low platelets- c/u to monitor- per medicine recs, Neupogen if wbc <1.5, c/u Acyclovir -s/p 1 unit prbc 01/06/19 and again 01/09/19, Hgb dropped today to 8.1 with anjum turia- will recheck tomorrow and consider transfusion (eliquis and ASA on hold) -s/p venofer per renal- appreciated -port removed 01/13/[address] Dela Cruz appreciated 6. Renal: pmh CKD with recent DUSTIN while getting diuresed, avoid nephrotoxic agents-renal recs appreciated 9. Psch: depression c/u ZOloft 10. GI ppx: protonix 11. DVT ppx: holding eliquis for hematuria 12. : BPH c/u FLomax- alerted Dr. Jade of patient's case, will formally consult if hematuria does not resolve with discontinuation of eliquis and ASA, otherwise will need otupatient f/u -urine Cx positive for pseudomona and E. faecalis, however patient denies dysuria, will hold off on antibiotics for now 12. Skin: patient with worsening sacral and groin rash- c/u corn starch and TID perianal care 12. Dispo: 01/17/19 to home, trained Allergies Coded Allergies: No Known Allergies (Unverified , 11/16/18) Vital Signs Vital Signs Date Time Temp Pulse Resp B/P (MAP) Pulse Ox O2 Delivery O2 Flow Rate FiO2 01/17/19 14:00 97.4 94 18 117/66 (83) 94 Laboratory Data CBC/BMP Laboratory Tests 01/17/19 08:51 Red Blood Count 2.69 L, Mean Corpuscular Volume 94.1, Mean Corpuscular Hemoglobin 30.1, Mean Corpuscular Hemoglobin Concent 32.0, Red Cell Distribution Width 23.5 H, Neutrophils (%) (Auto) 77.4 H, Lymphocytes (%) (Auto) 10.8 L, Monocytes (%) (Auto) 9.5 H, Eosinophils (%) (Auto) 1.4, Basophils (%) (Auto) 0.1, Neutrophils # (Auto) 5.6, Lymphocytes # (Auto) 0.8 L, Monocytes # (Auto) 0.7, Eosinophils # (Auto) 0.1, Basophils # (Auto) 0.0, Calcium Level 7.3 L Labs 24H Laboratory Tests 2 01/17/19 08:51: Immature Granulocyte % (Auto) 0.8, White Blood Count 7.3, Red Blood Count 2.69L, Hemoglobin 8.1L, Hematocrit 25.3L, Mean Corpuscular Volume 94.1, Mean Corpuscular Hemoglobin 30.1, Mean Corpuscular Hemoglobin Concent 32.0, Red Cell Distribution Width 23.5H, Platelet Count 64L, Neutrophils (%) (Auto) 77.4H, Lymphocytes (%) (Auto) 10.8L, Monocytes (%) (Auto) 9.5H, Eosinophils (%) (Auto) 1.4, Basophils (%) (Auto) 0.1, Neutrophils # (Auto) 5.6, Lymphocytes # (Auto) 0.8L, Monocytes # (Auto) 0.7, Eosinophils # (Auto) 0.1, Basophils # (Auto) 0.0, Nucleated Red Blood Cells % (auto) 0.4H, Immature Platelet Fraction 2.9, Anion Gap 10, Glomerular Filtration Rate 53.5, Blood Urea Nitrogen 23H, Creatinine 1.39H, Sodium Level 144, Potassium Level 3.5, Chloride Level 114H, Carbon Dioxide Level 20L, Calcium Level 7.3L Microbiology Microbiology 01/10/19 Blood Culture - Final, Complete NO GROWTH AFTER 5 DAYS 01/09/19 Blood Culture - Final, Complete NO GROWTH AFTER 5 DAYS 01/09/19 Blood Culture - Final, Complete NO GROWTH AFTER 5 DAYS 01/16/19 Urine Culture, Received Pending 01/13/19 Urine Culture - Final, Complete Enterococcus Faecalis Pseudomonas Aeruginosa 01/08/19 Urine Culture - Final, Complete Current Medications Current Medications Current Medications Acetaminophen (Tylenol Tab) 650 mg Q4HP PRN PO MILD PAIN (PS 1-4) Last administered on 01/16/19at 10:37; Start 01/06/19 at 17:45 Acyclovir (Zovirax) 400 mg BID PO Last administered on 01/17/19 08:13; Start 01/06/19 at 21:00 Al Hydrox/Mg Hydrox/Simethicone (Mylanta) 30 ml Q4HP PRN PO DYSPEPSIA; Start 01/06/19 at 17:45 Albuterol Sulfate (Proventil, Ventolin Hfa) 2 puff Q4HP PRN INH SHORTNESS OF BREATH; Start 01/06/19 at 18:00 Albuterol/ Ipratropium (Duoneb (Ipr 0.5mg/Alb 2.5mg)) 3 ml RTID NEB Last administered on 01/17/19 07:25; Start 01/06/19 at 20:00 Allopurinol (Zyloprim) 300 mg DAILY PO Last administered on 01/17/19 08:13; Start 01/07/19 at 09:00 Apixaban (Eliquis) 5 mg BID PO Last administered on 01/17/19 08:13; Start 01/06/19 at 21:00; Stop 01/17/19 at 13:56; Status DC Aspirin (Aspirin Chewable) 81 mg QPM PO Last administered on 01/16/19 20:04; Start 01/06/19 at 21:00; Stop 01/17/19 at 13:56; Status DC Atorvastatin Calcium (Lipitor) 20 mg QHS PO Last administered on 01/16/19 20:05; Start 01/06/19 at 21:00 Bisacodyl (Dulcolax Suppository) 10 mg DAILYPRN PRN RI CONSTIPATION; Start 01/06/19 at 17:45 Famotidine (Pepcid) 20 mg DAILY PO Last administered on 01/17/19 08:13; Start 01/07/19 at 09:00 Fluconazole (Diflucan) 100 mg DAILY PO Last administered on 01/17/19 08:13; Start 01/13/19 at 09:00; Stop 01/19/19 at 08:59 Furosemide (Lasix) 20 mg DAILY PO ; Start 01/15/19 at 18:30; Stop 01/16/19 at 10:50; Status DC Heparin Sodium (Heparin (Flush)) 500 units ASDIRECTED PRN IV SEE LABEL COMMENTS Last administered on 01/11/19 20:26; Start 01/06/19 at 17:45; Stop 01/13/19 at 19:35; Status DC Heparin Sodium (Heparin (Flush)) 500 units DAILY IV Last administered on 01/13/19 09:27; Start 01/07/19 at 09:00; Stop 01/13/19 at 19:35; Status DC Iron 200 mg/ Sodium Chloride 110 ml @ 110 mls/hr Q48H IV Last administered on 01/16/19 18:45; Start 01/16/19 at 19:00; Stop 01/24/19 at 19:59 Metoprolol Succinate (TopROL XL) 12.5 mg DAILY PO Last administered on 01/13/19 09:26; Start 01/10/19 at 09:00; Stop 01/13/19 at 12:04; Status DC Metoprolol Succinate (TopROL XL) 25 mg DAILY PO Last administered on 01/08/19 08:06; Start 01/07/19 at 09:00; Stop 01/09/19 at 11:53; Status DC Midodrine (Proamatine) 2.5 mg 08,12,16 PO Last administered on 01/17/19 17:25; Start 01/16/19 at 16:00 Ondansetron HCl (Zofran) 4 mg Q6HP PRN PO NAUSEA; Start 01/06/19 at 17:45 Potassium Chloride (Micro-K Extencaps) 20 meq BID PO Last administered on 01/08/19 08:06; Start 01/06/19 at 21:00; Stop 01/08/19 at 13:17; Status DC Pyridostigmine [place] (Mestinon) 15 mg TID PO ; Start 01/11/19 at 12:30; Stop 01/11/19 at 12:59; Status DC Pyridostigmine [place] (Mestinon) 15 mg TID PO Last administered on 01/13/19at 09:26; Start 01/11/19 at 13:00; Stop 01/13/19 at 12:04; Status DC Pyridostigmine [place] (Mestinon) 30 mg TID PO Last administered on 01/17/19at 17:25; Start 01/13/19 at 16:00 Senna (Senokot) 1 tab QHS PO ; Start 01/06/19 at 21:00; Stop 01/06/19 at 21:00; Status DC Senna/Docusate Sodium (Senokot S) 1 tab BID PO ; Start 01/06/19 at 21:00; Stop 01/06/19 at 21:00; Status DC Sertraline HCl (Zoloft) 100 mg DAILY PO Last administered on 01/09/19at 08:38; Start 01/07/19 at 09:00; Stop 01/10/19 at 10:30; Status DC Sertraline HCl (Zoloft) 100 mg QHS PO Last administered on 01/16/19at 20:05; Start 01/10/19 at 21:00 Sodium Bicarbonate (Sodium Bicarbonate) 325 mg BID PO Last administered on 01/17/19at 08:13; Start 01/09/19 at 09:00 Sodium Chloride 500 ml @ 100 mls/hr Q5H IV Last administered on 01/10/19at 10:40; Start 01/10/19 at 10:28; Stop 01/10/19 at 15:27; Status DC Sodium Chloride 1,000 ml @ 100 mls/hr Q10H IV ; Start 01/10/19 at 10:00; Stop 01/10/19 at 10:30; Status DC Sodium Chloride (Saline Lock Flush) 10 ml ASDIRECTED PRN IV SEE LABEL COMMENTS Last administered on 01/11/19at 20:26; Start 01/06/19 at 17:45; Stop 01/13/19 at 19:35; Status DC Sodium Chloride (Saline Lock Flush) 10 ml DAILY IV Last administered on 01/13/19at 09:27; Start 01/07/19 at 09:00; Stop 01/13/19 at 19:35; Status DC Tamsulosin HCl (Flomax) 0.4 mg QHS PO Last administered on 01/10/19at 22:03; Start 01/06/19 at 21:00; Stop 01/11/19 at 10:07; Status DC Tamsulosin HCl (Flomax) 0.4 mg QHS PO Last administered on 01/16/19at 20:05; Start 01/13/19 at 21:00 Zinc Oxide (Boudreauxs Butt Paste) 1 oz TID TOP Last administered on 01/09/19at 09:20; Start 01/06/19 at 21:00; Stop 01/09/19 at 16:13; Status DC LAXMI LYNN MD January 17, 2019 18:25
[2019-01-17 20:00] VITALS: BP 133/62
[2019-01-17] MEDS: SERTRALINE 100 MG TAB PO SCH (20:42)
[2019-01-17] MEDS: TAMSULOSIN 0.4 MG CAP PO SCH (20:42)
[2019-01-17] MEDS: ATORVASTATIN 20 MG TAB PO SCH (20:42)
[2019-01-18 06:00] VITALS: BP 140/68
[2019-01-18 07:00] LABS: BASO % 0.3 % (0.0-1.0); EOS # 0.2 10^3/uL (0.0-0.50); EOS % 2.1 % (0.0-3.0); HEMATOCRIT 26.2 % (42.0-52.0); HEMOGLOBIN 8.2 g/dl (13.5-17.5); LYMPH # 0.9 10^3/uL (1.5-4.5); LYMPH % 12.7 % (24.0-44.0); MEAN CORPUSCULAR HEMOGLOBIN 29.2 pg (27.0-33.0); MEAN CORPUSCULAR HGB CONC 31.3 g/dl (32.0-36.5); MEAN CORPUSCULAR VOLUME 93.2 fl (80.0-96.0); MONO # 0.6 10^3/uL (0.0-0.8); MONO % 8.7 % (0.0-5.0); NEUTROPHILS # 5.2 10^3/uL (1.8-7.7); NEUTROPHILS % 74.9 % (36.0-66.0); RED BLOOD COUNT 2.81 10^6/uL (4.30-6.10)
[2019-01-18 07:16] LABS: PLATELET COUNT, AUTOMATED 78 10^3/uL (150-450)
[2019-01-18] MEDS: IPRATROPIUM 0.5MG/ALBUTEROL 2.5MG INH SOL UD 3ML (DUONEB)(J7620) NEB SCH ×3 (08:00→17:55)
[2019-01-18] MEDS: FLUCONAZOLE 100 MG TAB PO SCH (08:38)
[2019-01-18] MEDS: FAMOTIDINE 20 MG TAB PO SCH (08:38)
[2019-01-18] MEDS: MIDODRINE 2.5 MG TAB PO SCH ×3 (08:38→15:39)
[2019-01-18] MEDS: ALLOPURINOL 300 MG TAB PO SCH (08:38)
[2019-01-18] MEDS: ACYCLOVIR 200 MG CAPSULE PO SCH ×2 (08:38→20:52)
[2019-01-18] MEDS: SODIUM BICARBONATE 325 MG TAB PO SCH ×2 (08:38→20:52)
[2019-01-18] MEDS: PYRIDOSTIGMINE 60 MG TAB PO SCH ×3 (08:38→20:53)
[2019-01-18 10:26] LABS: CALCIUM LEVEL 7.3 MG/DL (8.8-10.2); CREATININE FOR GFR 1.27 MG/DL (0.70-1.30); GLOMERULAR FILTRATION RATE 59.3 (>42); PHOSPHORUS LEVEL 2.3 MG/DL (2.5-4.9); POTASSIUM SERUM 3.2 MEQ/L (3.5-5.1)
[2019-01-18] MEDS: APIXABAN 2.5 MG TAB (ELIQUIS) PO SCH ×2 (11:05→20:53)
--- NOTE | 2019-01-18 12:55 | IPN ---
DATE OF SERVICE: 01/18/2019 SUBJECTIVE: The patient was seen and examined at the bedside today morning. He was not discharged yesterday because he developed some hematuria so further workup was ordered by the primary team. He got the imaging done. He is tolerating the low dose of midodrine. His blood pressures are stable. He denies any shortness of breath. OBJECTIVE: VITAL SIGNS: Temperature is 98.5 degrees Fahrenheit, blood pressure 140/68, pulse is 85, respiratory rate of 18, saturating 92% on room air. INTAKE AND OUTPUT: Urine output recorded is 600 mL since overnight. Weight in the bed scale is not available. PHYSICAL EXAMINATION: GENERAL: Patient is awake, alert, oriented times three, morbidly obese, laying in bed in no apparent distress. HEAD AND NECK EXAM: Extraocular muscles intact. Pupils equally round and reactive to light. Mucous membranes are moist. Neck is supple. There is no jugular venous distention (JVD). CARDIOVASCULAR: S1 and S2. Trace edema of the lower extremity and he has compression bandages. RESPIRATORY: Chest is clear to auscultation bilaterally. Bilateral equal air entry. No rales or rhonchi. ABDOMEN: Soft, obese, positive bowel sounds. Nontender, no organomegaly. MUSCULOSKELETAL: No clubbing or cyanosis. Pulses are 2+. AMBULETTE DRIVER: No focal deficit, power is 5/5 in all extremities. LAB REVIEW: CBC showed a WBC of 7, hemoglobin 8.2, platelets are 78. BMP showed sodium 145, potassium 3.2, chloride 115, bicarb is 19, BUN 17, creatinine is 1.2, calcium is 7.3, albumin is 2. IMAGING: A renal ultrasound was done yesterday which showed normal left kidney and bladder, and prior right nephrectomy. CURRENT INPATIENT MEDICATIONS: The patient's medications were all reviewed by me. He continues to be on IV Venofer. He continues to be on sodium bicarbonate. I have ordered a dose of potassium chloride 40 mEq to be given today. No other change in the medications today as compared with yesterday. ASSESSMENT/PLAN: 1. Chronic kidney disease stage III. Patient's renal function is stable, close to baseline. 2. Orthostatic hypotension. Continue current dose of midodrine 2.5 mg p.o. three times a day. 3. Iron-deficiency anemia. The patient is getting IV Venofer. Hemoglobin is stable at this point. 4. Non anion gap metabolic acidosis. Continue current dose of sodium bicarbonate 350 mg p.o. twice a day. 5. Hypokalemia. Patient was given a dose of potassium chloride 40 mEq p.o. x1 dose.
[2019-01-18] MEDS ORDERED: POTASSIUM CHLORIDE 10 MEQ SR TABLET PO ONE (13:00)
--- NOTE | 2019-01-18 14:10 | IPNPDOC ---
PM&R Progress Note DATE OF SERVICE: January 18, 2019 French Drawer Progress Note Subjective: PAtient seen in his room stating he continues to longer feel dizzy and is tolerating therapy. He continues to denies dysuria and reports no blood in urine today. REVIEW OF SYSTEMS: The following is a completed review of systems and has been reviewed. Review of systems otherwise unremarkable. PAIN: Patient self reports no pain EYES: Negative EARS, NOSE, & THROAT: Denies dysphagia or throat pain CARDIOVASCULAR: denies chest pain or palpitations, +orthostatics PULMONARY: +shortness of breath at rest and on exertion (improving) GASTROINTESTINAL:+diarrhea (improved) GENITOURINARY: Negative for dysuria, hematuria (resolving) MUSCULOSKELETAL: generalized weakness NEUROLOGICAL: no tremor or seizure activity HEMATOLOGICAL: +leukopenia and anemia SKIN +sacral ulcer PSYCHIATRIC: Unremarkable All other review of systems found to be negative. PHYSICAL EXAMINATION: VITAL SIGNS: Please see below. GENERAL: Pleasant and cooperative. No acute distress. HEENT: PERRL. Extraocular movements intact. Clear conjunctiva CARDIOVASCULAR: Regular rate and rhythm. No murmurs, rubs, or gallops LUNGS: Clear to auscultation bilaterally. No wheezes. No rhonchi, exertional dyspnea ABDOMEN: Soft, nontender, mildly- distended. Positive bowel sounds. Normal active bowel sounds NEUROLOGICAL: Alert and oriented times three. Cranial nerves II through XII grossly intact. Sensation grossly intact EXTREMITIES:5-\5 strength bilateral upper extremities.4-/5 hip flexors, knee ext ensors, ankle DF, 0/5 EHL bilat LE no edema, scattered ecchymosis SKIN: stage 2 sacral ulcer ASSESSMENT:73-year-old M with past medical history of multiple myeloma, endocarditis who presents status post dehydration, fever, weakness due to endocarditis. PLAN: 1. Rehab: PT, OT, assess for DME needs, improved dyspnea with exertion, able to ambulate short distances with RW- goal will be to home at wheelchair level 2. Neuro: avoid deliriogenic meds, stable 3. cardiac: pmh Aflutter, with recent dx of Strep Infantarius Endocarditis, per ID recs, s/p IV abx, last dose of Ceftriaxone 01/05/19-discussed with medicine and Dr. Lobato on 01/17/19 to hold Eliquis and ASA, today Hgb stable, will s tart back on Eliquis 2.5mg po BID as per cardiology recs and monitor Hgb, if still stable at >8 tomorrow will discharge home- hematuria resolved today - recs appreciated -pmh PM with 3rd degree AVB s/p PM with diastolic CHF- medicine consulted to follow -dizziness- resolved and orthostatics gradually getting better- c/u to hold beta-blockers, c/u to hold diuretics -postural orthostatic hypotension improving on Mestinon 30mg TID, c/u acewrapping and low dose Midodrine- renal recs appreciated 4. Resp: pmh COPD with interstitial lung disease on recent CT, c/u breathing treatments and supplemental 02, monitor for worsening infection -repeat CXR 01/10/19 no acute infiltrate, no vascular congestion 5. Heme/onc: pmh multiple myeloma, chemo on hold- patient leuokopenic, anemic, and low platelets- c/u to monitor- per medicine recs, Neupogen if wbc <1.5, c/u Acyclovir -s/p 1 unit prbc 01/06/19 and again 01/09/19, Hgb dropped today to 8.1 with hematuria which improved today, will recheck hgb tomorrow -c/u venofer per renal- appreciated -port removed 01/13/[address] Dela Cruz appreciated, per oncology port needs to be replaced, will coordinate for outpatient 6. Renal: pmh CKD with recent DUSTIN while getting diuresed, avoid nephrotoxic agents-renal recs appreciated -hypokalemia s/p one time dose K 9. Psch: depression c/u ZOloft 10. GI ppx: protonix 11. DVT ppx: restarting eliquis today 12. : BPH c/u FLomax- alerted Dr. Jade of patient's case, will formally consult if hematuria does not resolve with discontinuation of eliquis and ASA, otherwise will need otupatient f/u- improved today -urine Cx positive for pseudomona and E. faecalis, however patient denies dysuria, will hold off on antibiotics for now 12. Skin: patient with sacral and groin rash- c/u corn starch and TID perianal care, c/u Diflucan 7-day total course 12. Dispo: pending resolution of hematuria Allergies Coded Allergies: No Known Allergies (Unverified , 11/16/18) Vital Signs Vital Signs Date Time Temp Pulse Resp B/P (MAP) Pulse Ox O2 Delivery O2 Flow Rate FiO2 01/18/19 06:00 98.5 85 18 140/68 (92) 92 Laboratory Data CBC/BMP Laboratory Tests 01/18/19 06:30 Red Blood Count 2.81 L, Mean Corpuscular Volume 93.2, Mean Corpuscular Hemoglobin 29.2, Mean Corpuscular Hemoglobin Concent 31.3 L, Red Cell Distribution Width 23.0 H, Neutrophils (%) (Auto) 74.9 H, Lymphocytes (%) (Auto) 12.7 L, Monocytes (%) (Auto) 8.7 H, Eosinophils (%) (Auto) 2.1, Basophils (%) (Auto) 0.3, Neutrophils # (Auto) 5.2, Lymphocytes # (Auto) 0.9 L, Monocytes # (Auto) 0.6, Eosinophils # (Auto) 0.2, Basophils # (Auto) 0.0, Anion Gap 11 Labs 24H Laboratory Tests 2 01/18/19 06:30: Immature Granulocyte % (Auto) 1.3, White Blood Count 7.0, Red Blood Count 2.81L, Hemoglobin 8.2L, Hematocrit 26.2L, Mean Corpuscular Volume 93.2, Mean Corpuscular Hemoglobin 29.2, Mean Corpuscular Hemoglobin Concent 31.3L, Red Cell Distribution Width 23.0H, Platelet Count 78L, Neutrophils (%) (Auto) 74.9H, Lymphocytes (%) (Auto) 12.7L, Monocytes (%) (Auto) 8.7H, Eosinophils (%) (Auto) 2.1, Basophils (%) (Auto) 0.3, Neutrophils # (Auto) 5.2, Lymphocytes # (Auto) 0.9L, Monocytes # (Auto) 0.6, Eosinophils # (Auto) 0.2, Basophils # (Auto) 0.0, Nucleated Red Blood Cells % (auto) 0.3H, Blood Urea Nitrogen 17, Creatinine 1.27, Sodium Level 145, Potassium Level 3.2L, Chloride Level 115H, Carbon Dioxide Level 19L, Anion Gap 11, Glomerular Filtration Rate 59.3, Calcium Level 7.3L, Phosphorus Level 2.3L, Albumin 2.0L Microbiology Microbiology 01/10/19 Blood Culture - Final, Complete NO GROWTH AFTER 5 DAYS 01/09/19 Blood Culture - Final, Complete NO GROWTH AFTER 5 DAYS 01/09/19 Blood Culture - Final, Complete NO GROWTH AFTER 5 DAYS 01/16/19 Urine Culture, Received Pending 01/13/19 Urine Culture - Final, Complete Enterococcus Faecalis Pseudomonas Aeruginosa 01/08/19 Urine Culture - Final, Complete Current Medications Current Medications Current Medications Acetaminophen (Tylenol Tab) 650 mg Q4HP PRN PO MILD PAIN (PS 1-4) Last administered on 01/16/19at 10:37; Start 01/06/19 at 17:45 Acyclovir (Zovirax) 400 mg BID PO Last administered on 01/18/19 08:38; Start 01/06/19 at 21:00 Al Hydrox/Mg Hydrox/Simethicone (Mylanta) 30 ml Q4HP PRN PO DYSPEPSIA; Start 01/06/19 at 17:45 Albuterol Sulfate (Proventil, Ventolin Hfa) 2 puff Q4HP PRN INH SHORTNESS OF BREATH; Start 01/06/19 at 18:00 Albuterol/ Ipratropium (Duoneb (Ipr 0.5mg/Alb 2.5mg)) 3 ml RTID NEB Last administered on 01/18/19 13:20; Start 01/06/19 at 20:00 Allopurinol (Zyloprim) 300 mg DAILY PO Last administered on 01/18/19 08:38; Start 01/07/19 at 09:00 Apixaban (Eliquis) 2.5 mg BID PO Last administered on 01/18/19at 11:05; Start 01/18/19 at 10:15 Apixaban (Eliquis) 5 mg BID PO Last administered on 01/17/19 08:13; Start 01/06/19 at 21:00; Stop 01/17/19 at 13:56; Status DC Aspirin (Aspirin Chewable) 81 mg QPM PO Last administered on 01/16/19 20:04; Start 01/06/19 at 21:00; Stop 01/17/19 at 13:56; Status DC Atorvastatin Calcium (Lipitor) 20 mg QHS PO Last administered on 01/17/19at 20:42; Start 01/06/19 at 21:00 Bisacodyl (Dulcolax Suppository) 10 mg DAILYPRN PRN MA CONSTIPATION; Start 01/06/19 at 17:45 Famotidine (Pepcid) 20 mg DAILY PO Last administered on 01/18/19 08:38; Start 01/07/19 at 09:00 Fluconazole (Diflucan) 100 mg DAILY PO Last administered on 01/18/19 08:38; Start 01/13/19 at 09:00; Stop 01/19/19 at 08:59 Furosemide (Lasix) 20 mg DAILY PO ; Start 01/15/19 at 18:30; Stop 01/16/19 at 10:50; Status DC Heparin Sodium (Heparin (Flush)) 500 units ASDIRECTED PRN IV SEE LABEL COMMENTS Last administered on 01/11/19 20:26; Start 01/06/19 at 17:45; Stop 01/13/19 at 19:35; Status DC Heparin Sodium (Heparin (Flush)) 500 units DAILY IV Last administered on 01/13/19 09:27; Start 01/07/19 at 09:00; Stop 01/13/19 at 19:35; Status DC Iron 200 mg/ Sodium Chloride 110 ml @ 110 mls/hr Q48H IV Last administered on 01/16/19 18:45; Start 01/16/19 at 19:00; Stop 01/24/19 at 19:59 Metoprolol Succinate (TopROL XL) 12.5 mg DAILY PO Last administered on 01/13/19 09:26; Start 01/10/19 at 09:00; Stop 01/13/19 at 12:04; Status DC Metoprolol Succinate (TopROL XL) 25 mg DAILY PO Last administered on 01/08/19 08:06; Start 01/07/19 at 09:00; Stop 01/09/19 at 11:53; Status DC Midodrine (Proamatine) 2.5 mg 08,12,16 PO Last administered on 01/18/19 11:05; Start 01/16/19 at 16:00 Ondansetron HCl (Zofran) 4 mg Q6HP PRN PO NAUSEA; Start 01/06/19 at 17:45 Potassium Chloride (Micro-K Extencaps) 20 meq BID PO Last administered on 01/08/19at 08:06; Start 01/06/19 at 21:00; Stop 01/08/19 at 13:17; Status DC Pyridostigmine Shelby (Mestinon) 15 mg TID PO ; Start 01/11/19 at 12:30; Stop 01/11/19 at 12:59; Status DC Pyridostigmine [place] (Mestinon) 15 mg TID PO Last administered on 01/13/19at 09:26; Start 01/11/19 at 13:00; Stop 01/13/19 at 12:04; Status DC Pyridostigmine [place] (Mestinon) 30 mg TID PO Last administered on 01/18/19at 08:38; Start 01/13/19 at 16:00 Senna (Senokot) 1 tab QHS PO ; Start 01/06/19 at 21:00; Stop 01/06/19 at 21:00; Status DC Senna/Docusate Sodium (Senokot S) 1 tab BID PO ; Start 01/06/19 at 21:00; Stop 01/06/19 at 21:00; Status DC Sertraline HCl (Zoloft) 100 mg DAILY PO Last administered on 01/09/19at 08:38; Start 01/07/19 at 09:00; Stop 01/10/19 at 10:30; Status DC Sertraline HCl (Zoloft) 100 mg QHS PO Last administered on 01/17/19at 20:42; Start 01/10/19 at 21:00 Sodium Bicarbonate (Sodium Bicarbonate) 325 mg BID PO Last administered on 01/18/19at 08:38; Start 01/09/19 at 09:00 Sodium Chloride 500 ml @ 100 mls/hr Q5H IV Last administered on 01/10/19at 10:40; Start 01/10/19 at 10:28; Stop 01/10/19 at 15:27; Status DC Sodium Chloride 1,000 ml @ 100 mls/hr Q10H IV ; Start 01/10/19 at 10:00; Stop 01/10/19 at 10:30; Status DC Sodium Chloride (Saline Lock Flush) 10 ml ASDIRECTED PRN IV SEE LABEL COMMENTS Last administered on 01/11/19at 20:26; Start 01/06/19 at 17:45; Stop 01/13/19 at 19:35; Status DC Sodium Chloride (Saline Lock Flush) 10 ml DAILY IV Last administered on 01/13/19 09:27; Start 01/07/19 at 09:00; Stop 01/13/19 at 19:35; Status DC Tamsulosin HCl (Flomax) 0.4 mg QHS PO Last administered on 01/10/19at 22:03; Start 01/06/19 at 21:00; Stop 01/11/19 at 10:07; Status DC Tamsulosin HCl (Flomax) 0.4 mg QHS PO Last administered on 01/17/19at 20:42; Start 01/13/19 at 21:00 Zinc Oxide (Boudreauxs Butt Paste) 1 oz TID TOP Last administered on 01/09/19at 09:20; Start 01/06/19 at 21:00; Stop 01/09/19 at 16:13; Status DC LAXMI LYNN MD January 18, 2019 14:10
--- NOTE | 2019-01-18 16:45 | IPNPDOC ---
Subjective Date Seen The patient was seen on 01/18/19. Subjective Chief Complaint/HPI Patient is a 73-year-old male, primary history significant for atrial flutter, multiple myeloma, large B-cell lymphoma, COPD, DVT, CKD 3, admitted and treated for neutropenic fever. Patient was also found to have strep endocarditis. He was treated with a 4 week course of antibiotic therapy. During hospitalization he was also found to have acute diastolic heart failure and worsening dyspnea. Repeat echocardiogram showed persisting mobile echodens ity suggesting presence of vegetation been unchanged appearance from his prior study. He was discharged to rehabilitation unit for mobilization and strengthening due to physical deficits noted with prolonged hospitalization. Events since last encounter Discharge was deferred yesterday due to findings of gross hematuria. Eliquis was held and urology was consulted. Prior urinalysis the was positive for pseudomonas/ecoli. Patient denies symptoms. Staff report dysuria. Uncertain if patient is minimizing symptoms because he wants to be discharged home. Denies chills, compl ains of weakness which is persisting. Was unable to go outside in a wheelchair the second time today with therapy Objective Physical Examination General Exam: Positive: Alert, Cooperative, No Acute Distress Eye Exam: Positive: PERRLA, EOMI ENT Exam: Positive: Atraumatic, Mucous membr. moist/pink, Pinna Normal Neck Exam: Positive: Supple; Negative: JVD, thyromegaly Chest Exam: Positive: Clear to auscultation, Normal air movement Heart Exam: Positive: Rate Normal, Regular Rhythm Telemetry: Positive: Sinus Abdomen Exam: Positive: Normal bowel sounds, Soft; Negative: Tenderness Extremity Exam: Positive: Edema (to hands); Negative: Clubbing, Cyanosis Skin Exam: Positive: Nl turgor and temperature, Other skin issue (sacral decub, intertrigino) Neuro Exam: Positive: Normal Speech, Cranial Nerves 3-12 NL Psych Exam: Positive: Mental status NL, Memory Intact, Oriented x 3 Assessment /Plan Problems (1) Bacterial endocarditis Problem Text: -Patient has completed a course of antibiotic therapy -repeat ISMAEL unchanged -repeat blood culture negative (2) Anemia Problem Text: -S/P transfusion multiple units PRBC -stable -continue to monitor (3) Atrial fibrillation and flutter Problem Text: -S/P PPM placement -Paroxysmal -Rate is controlled -Continue anticoagulation therapy at lower dose due to hematuria seen yesterday (4) Orthostatic hypotension Problem Text: -continued on midodrine -tolerating well -blood pressure is improved -Continue safety precaution, fall precaution (5) Diastolic congestive heart failure with preserved left ventricular function, NYHA class 4 Problem Text: -euvolemic -continue other guideline directed therapy for management of CHF (6) CKD (chronic kidney disease), stage III Problem Text: -Nephrology on board, managing-follow recommendations (7) Urinary retention Problem Text: -continue Flomax -urinalysis abnormal with WBC/RBC/L.esterace? Infection -Follow culture report -O/P follow up with urology (8) DVT prophylaxis Problem Text: -Fully anticoagulated with eliquis Plan/VTE VTE Prophylaxis Ordered?: Yes VS, I&O, 24H, Fishbone Vital Signs/I&O Vital Signs Date Time Temp Pulse Resp B/P (MAP) Pulse Ox O2 Delivery O2 Flow Rate FiO2 01/18/19 06:00 98.5 85 18 140/68 (92) 92 I&O- Last 24 Hours up to 6 AM 01/18/19 06:00 Intake Total 1080 ml Output Total 1200 ml Balance -120 ml Laboratory Data 24H LABS Laboratory Tests 2 01/18/19 06:30: Immature Granulocyte % (Auto) 1.3, White Blood Count 7.0, Red Blood Count 2.81L, Hemoglobin 8.2L, Hematocrit 26.2L, Mean Corpuscular Volume 93.2, Mean Corpuscular Hemoglobin 29.2, Mean Corpuscular Hemoglobin Concent 31.3L, Red Cell Distribution Width 23.0H, Platelet Count 78L, Neutrophils (%) (Auto) 74.9H, Lymphocytes (%) (Auto) 12.7L, Monocytes (%) (Auto) 8.7H, Eosinophils (%) (Auto) 2.1, Basophils (%) (Auto) 0.3, Neutrophils # (Auto) 5.2, Lymphocytes # (Auto) 0.9L, Monocytes # (Auto) 0.6, Eosinophils # (Auto) 0.2, Basophils # (Auto) 0.0, Nucleated Red Blood Cells % (auto) 0.3H, Blood Urea Nitrogen 17, Creatinine 1.27, Sodium Level 145, Potassium Level 3.2L, Chloride Level 115H, Carbon Dioxide Level 19L, Anion Gap 11, Glomerular Filtration Rate 59.3, Calcium Level 7.3L, Phosphorus Level 2.3L, Albumin 2.0L CBC/BMP Laboratory Tests 01/18/19 06:30 Red Blood Count 2.81 L, Mean Corpuscular Volume 93.2, Mean Corpuscular Hemoglobin 29.2, Mean Corpuscular Hemoglobin Concent 31.3 L, Red Cell Distribution Width 23.0 H, Neutrophils (%) (Auto) 74.9 H, Lymphocytes (%) (Auto) 12.7 L, Monocytes (%) (Auto) 8.7 H, Eosinophils (%) (Auto) 2.1, Basophils (%) (Auto) 0.3, Neutrophils # (Auto) 5.2, Lymphocytes # (Auto) 0.9 L, Monocytes # (Auto) 0.6, Eosinophils # (Auto) 0.2, Basophils # (Auto) 0.0, Anion Gap 11 Microbiology Microbiology 01/10/19 Blood Culture - Final, Complete NO GROWTH AFTER 5 DAYS 01/09/19 Blood Culture - Final, Complete NO GROWTH AFTER 5 DAYS 01/09/19 Blood Culture - Final, Complete NO GROWTH AFTER 5 DAYS 01/16/19 Urine Culture, Received Pending 01/13/19 Urine Culture - Final, Complete Enterococcus Faecalis Pseudomonas Aeruginosa 01/08/19 Urine Culture - Final, Complete MOISES MATSON [employer] January 18, 2019 16:45
[2019-01-18] MEDS: IRON SUCROSE 200 MG in NS 100 ML IV SCH (18:58)
[2019-01-18 20:00] VITALS: BP 129/73
[2019-01-18] MEDS: SERTRALINE 100 MG TAB PO SCH (20:52)
[2019-01-18] MEDS: ATORVASTATIN 20 MG TAB PO SCH (20:52)
[2019-01-18] MEDS: TAMSULOSIN 0.4 MG CAP PO SCH (20:52)
[2019-01-19 06:00] VITALS: BP_SYST 104; BP_SYST 122; BP_DIAS 55; BP_DIAS 63
[2019-01-19 06:13] LABS: BASO % 0.3 % (0.0-1.0); EOS # 0.1 10^3/uL (0.0-0.50); EOS % 1.7 % (0.0-3.0); HEMATOCRIT 24.6 % (42.0-52.0); HEMOGLOBIN 7.7 g/dl (13.5-17.5); LYMPH # 0.7 10^3/uL (1.5-4.5); LYMPH % 11.6 % (24.0-44.0); MEAN CORPUSCULAR HEMOGLOBIN 30.3 pg (27.0-33.0); MEAN CORPUSCULAR HGB CONC 31.3 g/dl (32.0-36.5); MEAN CORPUSCULAR VOLUME 96.9 fl (80.0-96.0); MONO # 0.7 10^3/uL (0.0-0.8); MONO % 12.8 % (0.0-5.0); NEUTROPHILS # 4.2 10^3/uL (1.8-7.7); NEUTROPHILS % 72.9 % (36.0-66.0); PLATELET COUNT, AUTOMATED 101 10^3/uL (150-450); RED BLOOD COUNT 2.54 10^6/uL (4.30-6.10); WHITE BLOOD COUNT 5.8 10^3/uL (4.0-10.0)
[2019-01-19] MEDS: IPRATROPIUM 0.5MG/ALBUTEROL 2.5MG INH SOL UD 3ML (DUONEB)(J7620) NEB SCH ×3 (08:08→20:08)
[2019-01-19] MEDS: PYRIDOSTIGMINE 60 MG TAB PO SCH ×3 (08:54→20:50)
[2019-01-19] MEDS: MIDODRINE 2.5 MG TAB PO SCH (08:54)
[2019-01-19] MEDS: ACYCLOVIR 200 MG CAPSULE PO SCH ×2 (08:54→20:49)
[2019-01-19] MEDS: FAMOTIDINE 20 MG TAB PO SCH (08:54)
[2019-01-19] MEDS: APIXABAN 2.5 MG TAB (ELIQUIS) PO SCH (08:55)
[2019-01-19] MEDS: SODIUM BICARBONATE 325 MG TAB PO SCH ×2 (08:55→20:49)
[2019-01-19] MEDS: ALLOPURINOL 300 MG TAB PO SCH (08:55)
[2019-01-19] MEDS ORDERED: LevoFLOXacin 500 MG TABLET PO SCH (10:00)
[2019-01-19 11:12] LABS: CALCIUM LEVEL 7.4 MG/DL (8.8-10.2); CREATININE FOR GFR 1.34 MG/DL (0.70-1.30); GLOMERULAR FILTRATION RATE 55.8 (>42); POTASSIUM SERUM 3.2 MEQ/L (3.5-5.1)
[2019-01-19 11:40] LABS: MAGNESIUM LEVEL 1.5 MG/DL (1.8-2.4)
[2019-01-19] MEDS: ACETAMINOPHEN TAB 650MG DOSE (2X325MG) PO PRN (11:55)
--- NOTE | 2019-01-19 11:57 | IPNPDOC ---
PM&R Progress Note DATE OF SERVICE: January 19, 2019 Radio Personality Progress Note Subjective: Patient seen in his room stating he no longer has hematuria and continues to not have dysuria or bladder discomfort. He denied dizziness with sitting and standin g. He reported feeling dizzy at around 11am with repeat BP obtained by PT sBP 180 about 2 hours after receiving midodrine. Patient reports a mild headache. He is agreeable to staying longer because his blood count dropped today and will receive one unit of blood today as ordered by renal. REVIEW OF SYSTEMS: The following is a completed review of systems and has been reviewed. Review of systems otherwise unremarkable. PAIN: Patient self reports no pain EYES: Negative EARS, NOSE, & THROAT: Denies dysphagia or throat pain CARDIOVASCULAR: denies chest pain or palpitations, +orthostatics PULMONARY: +shortness of breath at rest and on exertion (improving) GASTROINTESTINAL:+diarrhea (improved) GENITOURINARY: Negative for dysuria, hematuria (resolved) MUSCULOSKELETAL: generalized weakness NEUROLOGICAL: no tremor or seizure activity HEMATOLOGICAL: +leukopenia and anemia SKIN +sacral ulcer PSYCHIATRIC: Unremarkable All other review of systems found to be negative. PHYSICAL EXAMINATION: VITAL SIGNS: Please see below. GENERAL: Pleasant and cooperative. No acute distress. HEENT: PERRL. Extraocular movements intact. Clear conjunctiva CARDIOVASCULAR: Regular rate and rhythm. No murmurs, rubs, or gallops LUNGS: Clear to auscultation bilaterally. No wheezes. No rhonchi, exertional dyspnea ABDOMEN: Soft, nontender, mildly- distended. Positive bowel sounds. Normal active bowel sounds NEUROLOGICAL: Alert and oriented times three. Cranial nerves II through XII grossly intact. Sensation grossly intact EXTREMITIES:5-\5 strength bilateral upper extremities.4-/5 hip flexors, knee extensors, ankle DF, 0/5 EHL bilat LE no edema, scattered ecchymosis SKIN: stage 2 sacral ulcer ASSESSMENT:73-year-old M with past medical history of multiple myeloma, endocarditis who presents status post dehydration, fever, weakness due to endocarditis. PLAN: 1. Rehab: PT, OT, assess for DME needs, improved dyspnea with exertion, able to ambulate short distances with RW- goal will be to home at wheelchair level 2. Neuro: avoid deliriogenic meds, stable 3. cardiac: pmh Aflutter, with recent dx of Strep Infantarius Endocarditis, per ID recs, s/p IV abx, last dose of Ceftriaxone 01/05/19-discussed with medicine and Dr. Lobato on 01/17/19 to hold Eliquis and ASA, on 01/18 Hgb stable so started back on Eliquis 2.5mg po BID as per cardiology rec, however Hgb dropped today to 7.7 without hematuria, will hold Eliquis altogether-FOBT pending, to receive one unit rbcs today- will check HH tonight and tomorrow am, if not dropping and >8 will discharge home- hematuria resolved today - all recs appre ciated -pmh PM with 3rd degree AVB s/p PM with diastolic CHF- medicine following -postural orthostatics clinically was improving on Pyridostigmine and Midodrine with no subjective dizziness until today with elevated sBP 180 in PT following midodrine administration, will d/c Midodrine and monitor on Pyridostigmine alone because this agent works primarily on postganglionic sympathetic nerves which a re activated during orthostatics without causing HTN as in the case of midodrine -c/u to hold beta-blockers, c/u to hold diuretics 4. Resp: pmh COPD with interstitial lung disease on recent CT, c/u breathing treatments and supplemental 02, monitor for worsening infection -repeat CXR 01/10/19 no acute infiltrate, no vascular congestion 5. Heme/onc: pmh multiple myeloma, chemo on hold- patient leuokopenic, anemic, and low platelets- c/u to monitor- per medicine recs, Neupogen if wbc <1.5, c/u Acyclovir -s/p 1 unit prbc 01/06/19 and again 01/09/19, Hgb dropped from 8.1 yesterday to 7.7 today, will receive another unit of rbcs per renal, will repeat HH tonight and in the morning, if stable will d/c home off Eliquis- FOBT ordered as well -c/u venofer per renal- appreciated -port removed 01/13/[address] Dela Cruz appreciated, per oncology port needs to be replaced, will coordinate for outpatient 6. Renal: pmh CKD with recent DUSTIN while getting diuresed, avoid nephrotoxic agents-renal recs appreciated -hypokalemia s/p one time dose K pn 01/18, still at 3.2 will give 04hpcy2 and recheck tomorrow- will f/u Mg level 9. Psch: depression c/u ZOloft 10. GI ppx: protonix 11. DVT ppx: eliquis on hold- will order dopplers to check for DVTs 12. : BPH c/u FLomax- alerted Dr. Jade of patient's case, will formally consult if hematuria does not resolve with discontinuation of eliquis and ASA, otherwise will need otupatient f/u-no further hematuria -urine Cx positive for pseudomona and E. faecalis, however patient continues to deny dysuria, will continue to hold off on antibiotics 12. Skin: patient with sacral and groin rash- c/u corn starch and TID perianal care, s/p course of Diflucan 7 12. Dispo: pending stable Hgb, hematuria resolved Allergies Coded Allergies: No Known Allergies (Unverified , 11/16/18) Vital Signs Vital Signs Date Time Temp Pulse Resp B/P (MAP) Pulse Ox O2 Delivery O2 Flow Rate FiO2 01/19/19 08:09 84 01/19/19 06:00 98.3 18 122/63 (82) 98 Laboratory Data CBC/BMP Laboratory Tests 01/19/19 05:57 Red Blood Count 2.54 L, Mean Corpuscular Volume 96.9 H, Mean Corpuscular Hemoglobin 30.3, Mean Corpuscular Hemoglobin Concent 31.3 L, Red Cell Distribution Width 23.9 H, Neutrophils (%) (Auto) 72.9 H, Lymphocytes (%) (Auto) 11.6 L, Monocytes (%) (Auto) 12.8 H, Eosinophils (%) (Auto) 1.7, Basophils (%) (Auto) 0.3, Neutrophils # (Auto) 4.2, Lymphocytes # (Auto) 0.7 L, Monocytes # (Auto) 0.7, Eosinophils # (Auto) 0.1, Basophils # (Auto) 0.0 01/19/19 10:24 Calcium Level 7.4 L Labs 24H Laboratory Tests 2 01/19/19 05:57: Immature Granulocyte % (Auto) 0.7, White Blood Count 5.8, Red Blood Count 2.54L, Hemoglobin 7.7L, Hematocrit 24.6L, Mean Corpuscular Volume 96.9H, Mean Corpuscular Hemoglobin 30.3, Mean Corpuscular Hemoglobin Concent 31.3L, Red Cell Distribution Width 23.9H, Platelet Count 101L, Neutrophils (%) (Auto) 72.9H, Lymphocytes (%) (Auto) 11.6L, Monocytes (%) (Auto) 12.8H, Eosinophils (%) (Auto) 1.7, Basophils (%) (Auto) 0.3, Neutrophils # (Auto) 4.2, Lymphocytes # (Auto) 0.7L, Monocytes # (Auto) 0.7, Eosinophils # (Auto) 0.1, Basophils # (Auto) 0.0, Nucleated Red Blood Cells % (auto) 2.6H 01/19/19 10:24: Anion Gap 8, Glomerular Filtration Rate 55.8, Blood Urea Nitrogen 16, Creatinine 1.34H, Sodium Level 142, Potassium Level 3.2L, Chloride Level 112H, Carbon Dioxide Level 22, Calcium Level 7.4L Microbiology Microbiology 01/10/19 Blood Culture - Final, Complete NO GROWTH AFTER 5 DAYS 01/09/19 Blood Culture - Final, Complete NO GROWTH AFTER 5 DAYS 01/09/19 Blood Culture - Final, Complete NO GROWTH AFTER 5 DAYS 01/16/19 Urine Culture - Final, Complete Pseudomonas Aeruginosa 01/13/19 Urine Culture - Final, Complete Enterococcus Faecalis Pseudomonas Aeruginosa Current Medications Current Medications Current Medications Acetaminophen (Tylenol Tab) 650 mg Q4HP PRN PO MILD PAIN (PS 1-4) Last administered on 01/16/19at 10:37; Start 01/06/19 at 17:45 Acyclovir (Zovirax) 400 mg BID PO Last administered on 01/19/19at 08:54; Start 01/06/19 at 21:00 Al Hydrox/Mg Hydrox/Simethicone (Mylanta) 30 ml Q4HP PRN PO DYSPEPSIA; Start 01/06/19 at 17:45 Albuterol Sulfate (Proventil, Ventolin Hfa) 2 puff Q4HP PRN INH SHORTNESS OF BREATH; Start 01/06/19 at 18:00 Albuterol/ Ipratropium (Duoneb (Ipr 0.5mg/Alb 2.5mg)) 3 ml RTID NEB Last administered on 01/19/19at 08:08; Start 01/06/19 at 20:00 Allopurinol (Zyloprim) 300 mg DAILY PO Last administered on 01/19/19 08:55; Start 01/07/19 at 09:00 Apixaban (Eliquis) 2.5 mg BID PO Last administered on 01/19/19 08:55; Start 01/18/19 at 10:15; Stop 01/19/19 at 10:40; Status DC Apixaban (Eliquis) 5 mg BID PO Last administered on 01/17/19 08:13; Start 01/06/19 at 21:00; Stop 01/17/19 at 13:56; Status DC Aspirin (Aspirin Chewable) 81 mg QPM PO Last administered on 01/16/19 20:04; Start 01/06/19 at 21:00; Stop 01/17/19 at 13:56; Status DC Atorvastatin Calcium (Lipitor) 20 mg QHS PO Last administered on 01/18/19at 20:52; Start 01/06/19 at 21:00 Bisacodyl (Dulcolax Suppository) 10 mg DAILYPRN PRN [place] CONSTIPATION; Start 01/06/19 at 17:45 Famotidine (Pepcid) 20 mg DAILY PO Last administered on 01/19/19 08:54; Start 01/07/19 at 09:00 Fluconazole (Diflucan) 100 mg DAILY PO Last administered on 01/18/19at 08:38; Start 01/13/19 at 09:00; Stop 01/19/19 at 08:59; Status DC Furosemide (Lasix) 20 mg DAILY PO ; Start 01/15/19 at 18:30; Stop 01/16/19 at 10:50; Status DC Heparin Sodium (Heparin (Flush)) 500 units ASDIRECTED PRN IV SEE LABEL COMMENTS Last administered on 01/11/19 20:26; Start 01/06/19 at 17:45; Stop 01/13/19 at 19:35; Status DC Heparin Sodium (Heparin (Flush)) 500 units DAILY IV Last administered on 01/13/19 09:27; Start 01/07/19 at 09:00; Stop 01/13/19 at 19:35; Status DC Iron 200 mg/ Sodium Chloride 110 ml @ 110 mls/hr Q48H IV Last administered on 5/29/19at 18:58; Start 01/16/19 at 19:00; Stop 01/24/19 at 19:59 Levofloxacin (Levaquin) 500 mg DAILY@06 PO ; Start 01/19/19 at 10:00; Stop 01/19/19 at 10:39; Status DC Metoprolol Succinate (TopROL XL) 12.5 mg DAILY PO Last administered on 01/13/19at 09:26; Start 01/10/19 at 09:00; Stop 01/13/19 at 12:04; Status DC Metoprolol Succinate (TopROL XL) 25 mg DAILY PO Last administered on 01/08/19at 08:06; Start 01/07/19 at 09:00; Stop 01/09/19 at 11:53; Status DC Midodrine (Proamatine) 2.5 mg 08,12,16 PO Last administered on 01/19/19at 08:54; Start 01/16/19 at 16:00 Ondansetron HCl (Zofran) 4 mg Q6HP PRN PO NAUSEA; Start 01/06/19 at 17:45 Potassium Chloride (Micro-K Extencaps) 20 meq BID PO Last administered on 01/08/19at 08:06; Start 01/06/19 at 21:00; Stop 01/08/19 at 13:17; Status DC Pyridostigmine [place] (Mestinon) 15 mg TID PO ; Start 01/11/19 at 12:30; Stop 01/11/19 at 12:59; Status DC Pyridostigmine [place] (Mestinon) 15 mg TID PO Last administered on 01/13/19at 09:26; Start 01/11/19 at 13:00; Stop 01/13/19 at 12:04; Status DC Pyridostigmine [place] (Mestinon) 30 mg TID PO Last administered on 01/19/19at 08:54; Start 01/13/19 at 16:00 Senna (Senokot) 1 tab QHS PO ; Start 01/06/19 at 21:00; Stop 01/06/19 at 21:00; Status DC Senna/Docusate Sodium (Senokot S) 1 tab BID PO ; Start 01/06/19 at 21:00; Stop 01/06/19 at 21:00; Status DC Sertraline HCl (Zoloft) 100 mg DAILY PO Last administered on 01/09/19 08:38; Start 01/07/19 at 09:00; Stop 01/10/19 at 10:30; Status DC Sertraline HCl (Zoloft) 100 mg QHS PO Last administered on 01/18/19 20:52; Start 01/10/19 at 21:00 Sodium Bicarbonate (Sodium Bicarbonate) 325 mg BID PO Last administered on 01/19/19 08:55; Start 01/09/19 at 09:00 Sodium Chloride 500 ml @ 100 mls/hr Q5H IV Last administered on 01/10/19at 10:40; Start 01/10/19 at 10:28; Stop 01/10/19 at 15:27; Status DC Sodium Chloride 1,000 ml @ 100 mls/hr Q10H IV ; Start 01/10/19 at 10:00; Stop 01/10/19 at 10:30; Status DC Sodium Chloride (Saline Lock Flush) 10 ml ASDIRECTED PRN IV SEE LABEL COMMENTS Last administered on 01/11/19 20:26; Start 01/06/19 at 17:45; Stop 01/13/19 at 19:35; Status DC Sodium Chloride (Saline Lock Flush) 10 ml DAILY IV Last administered on 01/13/19 09:27; Start 01/07/19 at 09:00; Stop 01/13/19 at 19:35; Status DC Tamsulosin HCl (Flomax) 0.4 mg QHS PO Last administered on 01/10/19 22:03; Start 01/06/19 at 21:00; Stop 01/11/19 at 10:07; Status DC Tamsulosin HCl (Flomax) 0.4 mg QHS PO Last administered on 01/18/19 20:52; Start 01/13/19 at 21:00 Zinc Oxide (Boudreauxs Butt Paste) 1 oz TID TOP Last administered on 01/09/19 09:20; Start 01/06/19 at 21:00; Stop 01/09/19 at 16:13; Status DC LAXMI LYNN MD January 19, 2019 11:57
[2019-01-19] MEDS ORDERED: POTASSIUM CHLORIDE 10 MEQ SR TABLET PO ONE (12:00)
[2019-01-19] MEDS ORDERED: MAG SULF 1GM/100ML (MAG RUN) 1 GM in APPROPRIATE DILUENT 1 EA IV ONE (13:00)
[2019-01-19] MEDS ORDERED: POTASSIUM CHLORIDE 10 MEQ SR TABLET PO SCH (13:00)
--- NOTE | 2019-01-19 13:26 | REP ---
Duplex extremity venous ultrasound: Bilateral lower extremity. History: Immobility. Question DVT. Findings: The deep veins are anechoic and fully compressible from the groin to the popliteal fossa in the left and right lower extremity. Color flow imaging is homogeneous. Spectral Doppler interrogation demonstrates intact respiratory variation in flow and normal manual augmentation of flow. There is no evidence of deep vein thrombosis. There is a complex Levy's cyst in the left posterior popliteal soft tissues measuring 6.4 x 1.1 x 2.0 cm. Impression: Negative bilateral lower extremity duplex venous ultrasound. No evidence of deep vein thrombosis. A 6.4 cm Levy's cyst is noted on the left. Electronically Signed by Alfredito Gregorio MD 01/19/2019 01:17 P
[2019-01-19] MEDS: MAGNESIUM OXIDE 400 MG TAB (MAG-OX) PO SCH ×2 (13:45→20:50)
[2019-01-19 14:00] VITALS: BP 116/61
--- NOTE | 2019-01-19 14:32 | IPNPDOC ---
Subjective Date Seen The patient was seen on 01/19/19. Subjective Chief Complaint/HPI Patient is a 73-year-old male, primary history significant for atrial flutter, multiple myeloma, large B-cell lymphoma, COPD, DVT, CKD 3, admitted and treated for neutropenic fever. Patient was also found to have strep endocarditis. He was treated with a 4 week course of antibiotic therapy. During hospitalization he was also found to have acute diastolic heart failure and worsening dyspnea. Repeat echocardiogram showed persisting mobile echodens ity suggesting presence of vegetation been unchanged appearance from his prior study. He was discharged to rehabilitation unit for mobilization and strengthening due to physical deficits noted with prolonged hospitalization. Events since last encounter Repeat hemoglobin dropped to 7.7 today. Primary team planning to transfuse patient. Discharge has been deferred for this. Patient denies any signs or symptoms of active bleeding. Staff reports patient was very hypertensive today versus hypotensive which he has usually been. He was also very symptomatic with it. He denies pain, complains of weakness, denies shortness of breath. Objective Physical Examination General Exam: Positive: Alert, Cooperative, No Acute Distress Eye Exam: Positive: PERRLA, EOMI ENT Exam: Positive: Atraumatic, Mucous membr. moist/pink, Tongue Midline, Nares Patent; Negative: Pharyngeal Edema Neck Exam: Positive: Supple; Negative: JVD, thyromegaly Chest Exam: Positive: Clear to auscultation, Normal air movement; Negative: Rales, Rhonchi, Wheezing Heart Exam: Positive: Rate Normal, Regular Rhythm Telemetry: Positive: Sinus Abdomen Exam: Positive: Normal bowel sounds, Soft; Negative: Tenderness Extremity Exam: Positive: Edema (to hands); Negative: Clubbing, Cyanosis Skin Exam: Positive: Nl turgor and temperature, Other skin issue (sacral decub, intertrigino) Neuro Exam: Positive: Normal Speech, Cranial Nerves 3-12 NL Psych Exam: Positive: Mental status NL, Mood NL, Memory Intact, Oriented x 3 Assessment /Plan Problems (1) Anemia Problem Text: -Hemoglobin 7.7 today -Primary team plans to transfuse patient - anticoagulation therapy for atrial fibrillation has been held -Other than the fact that he had hematuria, source of bleed is currently unclear -S/P transfusion multiple units PRBC -continue to monitor (2) Bacterial endocarditis Problem Text: -treated -Patient has completed a course of antibiotic therapy -repeat ISMAEL unchanged -repeat blood culture negative (3) Atrial fibrillation and flutter Problem Text: -S/P PPM placement -Paroxysmal, currently at controlled rate (4) Orthostatic hypotension Problem Text: -reported hypertension with symptoms today for which Midodrine was held -blood pressure is improved -Continue safety precaution, fall precaution (5) Diastolic congestive heart failure with preserved left ventricular function, NYHA class 4 Problem Text: -euvolemic -continue other guideline directed therapy for management of CHF (6) CKD (chronic kidney disease), stage III Problem Text: -Nephrology on board, managing-follow recommendations (7) Urinary retention Problem Text: -continue Flomax -urine culture +pseudomonas (8) DVT prophylaxis Problem Text: -active bleeding with anemia now (9) Hypokalemia Status: Acute Problem Text: -being repleted -monitor to keep greater than 4 (10) Hypomagnesemia Status: Acute Problem Text: -currently being repleted -monitor to keep greater than 2 Plan/VTE VTE Prophylaxis Ordered?: No VTE Exclusion Mechanical Proph: Other VTE Exclusion Pharmacological: Bleeding Risk VS, I&O, 24H, [facility] Vital Signs/I&O Vital Signs Date Time Temp Pulse Resp B/P (MAP) Pulse Ox O2 Delivery O2 Flow Rate FiO2 01/19/19 13:50 92 01/19/19 11:17 20 01/19/19 06:00 98.3 122/63 (82) 98 I&O- Last 24 Hours up to 6 AM 01/19/19 06:00 Intake Total 940 ml Output Total 600 ml Balance 340 ml Laboratory Data 24H LABS Laboratory Tests 2 01/19/19 05:57: Immature Granulocyte % (Auto) 0.7, White Blood Count 5.8, Red Blood Count 2.54L, Hemoglobin 7.7L, Hematocrit 24.6L, Mean Corpuscular Volume 96.9H, Mean Corpuscular Hemoglobin 30.3, Mean Corpuscular Hemoglobin Concent 31.3L, Red Cell Distribution Width 23.9H, Platelet Count 101L, Neutrophils (%) (Auto) 72.9H, Lymphocytes (%) (Auto) 11.6L, Monocytes (%) (Auto) 12.8H, Eosinophils (%) (Auto) 1.7, Basophils (%) (Auto) 0.3, Neutrophils # (Auto) 4.2, Lymphocytes # (Auto) 0.7L, Monocytes # (Auto) 0.7, Eosinophils # (Auto) 0.1, Basophils # (Auto) 0.0, Nucleated Red Blood Cells % (auto) 2.6H 01/19/19 10:24: Anion Gap 8, Glomerular Filtration Rate 55.8, Blood Urea Nitrogen 16, Creatinine 1.34H, Sodium Level 142, Potassium Level 3.2L, Chloride Level 112H, Carbon Dioxide Level 22, Calcium Level 7.4L, Magnesium Level 1.5L CBC/BMP Laboratory Tests 01/19/19 05:57 Red Blood Count 2.54 L, Mean Corpuscular Volume 96.9 H, Mean Corpuscular Hemoglobin 30.3, Mean Corpuscular Hemoglobin Concent 31.3 L, Red Cell Distribution Width 23.9 H, Neutrophils (%) (Auto) 72.9 H, Lymphocytes (%) (Auto) 11.6 L, Monocytes (%) (Auto) 12.8 H, Eosinophils (%) (Auto) 1.7, Basophils (%) (Auto) 0.3, Neutrophils # (Auto) 4.2, Lymphocytes # (Auto) 0.7 L, Monocytes # (Auto) 0.7, Eosinophils # (Auto) 0.1, Basophils # (Auto) 0.0 01/19/19 10:24 Calcium Level 7.4 L Microbiology Microbiology 01/10/19 Blood Culture - Final, Complete NO GROWTH AFTER 5 DAYS 01/09/19 Blood Culture - Final, Complete NO GROWTH AFTER 5 DAYS 01/09/19 Blood Culture - Final, Complete NO GROWTH AFTER 5 DAYS 01/16/19 Urine Culture - Final, Complete Pseudomonas Aeruginosa 01/13/19 Urine Culture - Final, Complete Enterococcus Faecalis Pseudomonas Aeruginosa [facility] January 19, 2019 14:32
[2019-01-19] MEDS: LevoFLOXacin 500 MG TABLET PO SCH (17:11)
[2019-01-19 20:00] VITALS: BP 132/65
--- NOTE | 2019-01-19 20:27 | IPN ---
DATE: 01/19/2019 SUBJECTIVE: The patient was seen and examined at the bedside today morning. He is afebrile and hemodynamically stable; however, his hemoglobin has dropped, and his urine cultures came back positive again for Pseudomonas aeruginosa. His blood pressures are controlled with midodrine. OBJECTIVE: Vital signs: Temperature is 93.3 degrees Fahrenheit, blood pressure 122/63, pulse is 84, respiratory rate of 18, saturating 98% on room air. Intake and output: Urine output recorded is 550 mL so far today since overnight. Weight in the bed scale is not available. PHYSICAL EXAMINATION: GENERAL: The patient is awake, alert, oriented times three, sitting up in the bed in no apparent distress. HEAD AND NECK: Extraocular muscles intact. Pupils equally round and reactive to light. Mucous membranes are moist. Neck is supple. There is no jugular venous distention (JVD). CARDIOVASCULAR: S1, S2. Trace edema of the bilateral lower extremities, which covered in compression dressing. RESPIRATORY: Chest is clear to auscultation bilaterally. Bilateral equal air entry. No rales or rhonchi. ABDOMEN: Soft, obese. Positive bowel sounds. Nontender. No organomegaly. MUSCULOSKELETAL: No clubbing or cyanosis. Pulses are 2+. CENTRAL NERVOUS SYSTEM: No focal deficit. Power is 5/5 in all extremities. LABORATORY REVIEW: CBC showed a WBC of 5.8, hemoglobin is 7.7, platelets are 101. BMP showed sodium 142, potassium 3.2, chloride 112, bicarbonate 22, BUN 16, creatinine is 1.3, magnesium is 1.5. Microbiology: Urine cultures from 01/16/2019 came back positive for Pseudomonas aeruginosa. IMAGING: Duplex of the bilateral lower extremities was ordered, which showed no evidence of deep vein thrombosis. There was a Levy's cyst in the left. CURRENT INPATIENT MEDICATIONS: The patient's medications were all reviewed by me. The patient continues to be on intravenous (IV) Venofer. One dose of magnesium sulfate 1 gram IV was ordered today morning. I have started the patient on Levaquin 500 mg by mouth daily. The patient was given a dose of potassium chloride 40 mEq times one dose. No other change in the medications today as compared with yesterday. ASSESSMENT AND PLAN: 1. Orthostatic hypotension. The patient's midodrine has been held today. Blood pressures are acceptable. If the patient becomes hypotensive, then midodrine can be restarted at twice a day instead of three times a day. 2. Anemia. The patient's hemoglobin has dropped below 8. I have ordered fecal occult blood test (FOBT. Anticoagulation with Eliquis has already been held. The patient will get 1 unit of packed red blood cells (PRBC) transfusion today. 3. Hypokalemia. The patient was given a dose of potassium chloride 40 mEq by mouth times one dose. 4. Pseudomonas urinary tract infection. The patient has been started on Levaquin 500 mg by mouth daily. 4. Non-anion gap metabolic acidosis. Bicarbonate level is controlled with the current dose of sodium bicarbonate twice a day. 5. Hypomagnesemia. The patient was given a dose of magnesium sulfate 1 gram IV times one dose today morning
[2019-01-19] MEDS: SERTRALINE 100 MG TAB PO SCH (20:50)
[2019-01-19] MEDS: ATORVASTATIN 20 MG TAB PO SCH (20:50)
[2019-01-19] MEDS: TAMSULOSIN 0.4 MG CAP PO SCH (20:50)
[2019-01-19 21:00] VITALS: BP 149/72
[2019-01-19 22:22] LABS: HEMATOCRIT 27.7 % (42.0-52.0); HEMOGLOBIN 8.8 g/dl (13.5-17.5)
[2019-01-20 06:00] VITALS: BP 130/63
[2019-01-20 07:17] LABS: BASO % 0.3 % (0.0-1.0); EOS # 0.1 10^3/uL (0.0-0.50); EOS % 1.7 % (0.0-3.0); HEMOGLOBIN 9.7 g/dl (13.5-17.5); LYMPH # 0.6 10^3/uL (1.5-4.5); LYMPH % 9.2 % (24.0-44.0); MEAN CORPUSCULAR HEMOGLOBIN 30.3 pg (27.0-33.0); MEAN CORPUSCULAR HGB CONC 32.3 g/dl (32.0-36.5); MEAN CORPUSCULAR VOLUME 93.8 fl (80.0-96.0); MONO # 0.7 10^3/uL (0.0-0.8); MONO % 11.6 % (0.0-5.0); NEUTROPHILS # 4.9 10^3/uL (1.8-7.7); NEUTROPHILS % 76.1 % (36.0-66.0); WHITE BLOOD COUNT 6.4 10^3/uL (4.0-10.0)
[2019-01-20] MEDS: IPRATROPIUM 0.5MG/ALBUTEROL 2.5MG INH SOL UD 3ML (DUONEB)(J7620) NEB SCH ×3 (07:59→20:00)
[2019-01-20 08:11] LABS: CALCIUM LEVEL 8.4 MG/DL (8.8-10.2); CREATININE FOR GFR 1.4 MG/DL (0.70-1.30); MAGNESIUM LEVEL 1.4 MG/DL (1.8-2.4); POTASSIUM SERUM 4.2 MEQ/L (3.5-5.1)
[2019-01-20 08:16] LABS: PLATELET COUNT, AUTOMATED 73 10^3/uL (150-450)
[2019-01-20] MEDS ORDERED: POTASSIUM CHLORIDE 10 MEQ SR TABLET PO SCH (09:00)
[2019-01-20] MEDS ORDERED: MAG SULF 1GM/100ML (MAG RUN) 1 GM in APPROPRIATE DILUENT 1 EA IV ONE (09:45)
--- NOTE | 2019-01-20 09:46 | IPNPDOC ---
Subjective Date Seen The patient was seen on 01/20/19. Subjective Chief Complaint/HPI Patient is a 73-year-old male, primary history significant for atrial flutter, multiple myeloma, large B-cell lymphoma, COPD, DVT, CKD 3, admitted and treated for neutropenic fever. Patient was also found to have strep endocarditis. He was treated with a 4 week course of antibiotic therapy. During hospitalization he was also found to have acute diastolic heart failure and worsening dyspnea. Repeat echocardiogram showed persisting mobile echodens ity suggesting presence of vegetation been unchanged appearance from his prior study. He was discharged to rehabilitation unit for mobilization and strengthening due to physical deficits noted with prolonged hospitalization. Events since last encounter Up to chair at bedside with therapist. Feels good today, denies chest pain, denies SOB Objective Physical Examination General Exam: Positive: Alert, Cooperative, No Acute Distress Eye Exam: Positive: PERRLA, EOMI ENT Exam: Positive: Atraumatic, Mucous membr. moist/pink, Tongue Midline, Nares Patent; Negative: Pharyngeal Edema Neck Exam: Positive: Supple; Negative: JVD, thyromegaly Chest Exam: Positive: Clear to auscultation, Normal air movement; Negative: Rales, Rhonchi, Wheezing Heart Exam: Positive: Rate Normal, Regular Rhythm Telemetry: Positive: Sinus Abdomen Exam: Positive: Normal bowel sounds, Soft; Negative: Tenderness Extremity Exam: Positive: Edema (to hands); Negative: Clubbing, Cyanosis Skin Exam: Positive: Nl turgor and temperature, Other skin issue (sacral decub, intertrigino) Neuro Exam: Positive: Normal Speech, Cranial Nerves 3-12 NL Psych Exam: Positive: Mental status NL, Mood NL, Memory Intact, Oriented x 3 Assessment /Plan Problems (1) Anemia Problem Text: -Hemoglobin 9.7 today -S/P transfusion PRBC -Continue to monitor hgb (2) Bacterial endocarditis Problem Text: -treated -Patient has completed a course of antibiotic therapy -repeat ISMAEL unchanged -repeat blood culture negative (3) Atrial fibrillation and flutter Problem Text: -S/P PPM placement -Paroxysmal, currently at controlled rate -no anticoagulation in the light of recurrent bleed of unclear etiology at this time (4) Orthostatic hypotension Problem Text: -started on midodrine but discontinued when patient became hypertensive -blood pressure is improved -Continue safety precaution, fall precaution (5) Diastolic congestive heart failure with preserved left ventricular function, NYHA class 4 Problem Text: -euvolemic -continue other guideline directed therapy for management of CHF (6) CKD (chronic kidney disease), stage III Problem Text: -Nephrology on board, managing-follow recommendations (7) Urinary retention Discussed With: Patient Problem Text: -continue Flomax -Started on levaquin for +urine culture +pseudomonas (8) DVT prophylaxis Problem Text: -active bleeding with anemia now (9) Hypokalemia Status: Acute Problem Text: -repleted, normalized -monitor to keep greater than 4 (10) Hypomagnesemia Status: Acute Problem Text: -currently being repleted -monitor to keep greater than 2 Plan/VTE VTE Prophylaxis Ordered?: No VTE Exclusion Mechanical Proph: Other VTE Exclusion Pharmacological: Bleeding Risk VS, I&O, 24H, Fishbone Vital Signs/I&O Vital Signs Date Time Temp Pulse Resp B/P (MAP) Pulse Ox O2 Delivery O2 Flow Rate FiO2 01/20/19 06:00 97.6 63 18 130/63 (85) 97 I&O- Last 24 Hours up to 6 AM 01/20/19 06:00 Intake Total 1740 ml Output Total 800 ml Balance 940 ml Laboratory Data 24H LABS Laboratory Tests 2 01/19/19 10:24: Anion Gap 8, Glomerular Filtration Rate 55.8, Blood Urea Nitrogen 16, Creatinine 1.34H, Sodium Level 142, Potassium Level 3.2L, Chloride Level 112H, Carbon Dioxide Level 22, Calcium Level 7.4L, Magnesium Level 1.5L 01/20/19 06:55: Anion Gap 9, Glomerular Filtration Rate 53.0, Blood Urea Nitrogen 14, Creatinine 1.40H, Sodium Level 142, Potassium Level 4.2#, Chloride Level 114H, Carbon Dioxide Level 19L, Calcium Level 8.4L, Magnesium Level 1.4L, Immature Granulocyte % (Auto) 1.1, White Blood Count 6.4, Red Blood Count 3.20L, Hemoglobin 9.7L, Hematocrit 30.0L, Mean Corpuscular Volume 93.8, Mean Corpuscular Hemoglobin 30.3, Mean Corpuscular Hemoglobin Concent 32.3, Red Cell Distribution Width 21.9H, Platelet Count 73L, Neutrophils (%) (Auto) 76.1H, Lymphocytes (%) (Auto) 9.2L, Monocytes (%) (Auto) 11.6H, Eosinophils (%) (Auto) 1.7, Basophils (%) (Auto) 0.3, Neutrophils # (Auto) 4.9, Lymphocytes # (Auto) 0.6L, Monocytes # (Auto) 0.7, Eosinophils # (Auto) 0.1, Basophils # (Auto) 0.0, Nucleated Red Blood Cells % (auto) 0.6H, Immature Platelet Fraction 2.9 CBC/BMP Laboratory Tests 01/19/19 10:24 Calcium Level 7.4 L 01/19/19 22:11 01/20/19 06:55 Calcium Level 8.4 L, Red Blood Count 3.20 L, Mean Corpuscular Volume 93.8, Mean Corpuscular Hemoglobin 30.3, Mean Corpuscular Hemoglobin Concent 32.3, Red Cell Distribution Width 21.9 H, Neutrophils (%) (Auto) 76.1 H, Lymphocytes (%) (Auto) 9.2 L, Monocytes (%) (Auto) 11.6 H, Eosinophils (%) (Auto) 1.7, Basophils (%) (Auto) 0.3, Neutrophils # (Auto) 4.9, Lymphocytes # (Auto) 0.6 L, Monocytes # (Auto) 0.7, Eosinophils # (Auto) 0.1, Basophils # (Auto) 0.0 Microbiology Microbiology 01/10/19 Blood Culture - Final, Complete NO GROWTH AFTER 5 DAYS 01/16/19 Urine Culture - Final, Complete Pseudomonas Aeruginosa 01/13/19 Urine Culture - Final, Complete Enterococcus Faecalis Pseudomonas Aeruginosa MOISES MATSON January 20, 2019 09:46
[2019-01-20] MEDS: ALLOPURINOL 300 MG TAB PO SCH (10:11)
[2019-01-20] MEDS: MAGNESIUM OXIDE 400 MG TAB (MAG-OX) PO SCH ×2 (10:11→21:17)
[2019-01-20] MEDS: FAMOTIDINE 20 MG TAB PO SCH (10:12)
[2019-01-20] MEDS: PYRIDOSTIGMINE 60 MG TAB PO SCH ×3 (10:12→21:16)
[2019-01-20] MEDS: SODIUM BICARBONATE 325 MG TAB PO SCH ×2 (10:12→21:17)
[2019-01-20] MEDS: POTASSIUM CHLORIDE 10 MEQ SR TABLET PO SCH (10:12)
[2019-01-20] MEDS: ACYCLOVIR 200 MG CAPSULE PO SCH ×2 (10:12→21:17)
--- NOTE | 2019-01-20 12:33 | IPNPDOC ---
PM&R Progress Note DATE OF SERVICE: January 20, 2019 Mail [employer] Progress Note Subjective: Patient seen in therapy and alter in his room, he is agreeable to staying a few more dyas until his magnesium levels improve and his occult blood test is complete. he denies dizziness and or increased shortness of breath following the transfusion. REVIEW OF SYSTEMS: The following is a completed review of systems and has been reviewed. Review of systems otherwise unremarkable. PAIN: Patient self reports no pain EYES: Negative EARS, NOSE, & THROAT: Denies dysphagia or throat pain CARDIOVASCULAR: denies chest pain or palpitations, +orthostatics PULMONARY: +shortness of breath at rest and on exertion (improving) GASTROINTESTINAL:+diarrhea (improved) GENITOURINARY: Negative for dysuria, hematuria (resolved) MUSCULOSKELETAL: generalized weakness NEUROLOGICAL: no tremor or seizure activity HEMATOLOGICAL: +leukopenia and anemia SKIN +sacral ulcer PSYCHIATRIC: Unremarkable All other review of systems found to be negative. PHYSICAL EXAMINATION: VITAL SIGNS: Please see below. GENERAL: Pleasant and cooperative. No acute distress. HEENT: PERRL. Extraocular movements intact. Clear conjunctiva CARDIOVASCULAR: Regular rate and rhythm. No murmurs, rubs, or gallops LUNGS: Clear to auscultation bilaterally. No wheezes. No rhonchi, exertional dyspnea ABDOMEN: Soft, nontender, mildly- distended. Positive bowel sounds. Normal active bowel sounds NEUROLOGICAL: Alert and oriented times three. Cranial nerves II through XII grossly intact. Sensation grossly intact EXTREMITIES:5-\5 strength bilateral upper extremities.4-/5 hip flexors, knee extensors, ankle DF, 0/5 EHL bilat LE no edema, scattered ecchymosis SKIN: stage 2 sacral ulcer ASSESSMENT:73-year-old M with past medical history of multiple myeloma, endocarditis who presents status post dehydration, fever, weakness due to endocarditis. PLAN: 1. Rehab: PT, OT, assess for DME needs, improved dyspnea with exertion, able to ambulate short distances with RW- goal will be to home at wheelchair level 2. Neuro: avoid deliriogenic meds, stable 3. cardiac: pmh Aflutter, with recent dx of Strep Infantarius Endocarditis, per ID recs, s/p IV abx, last dose of Ceftriaxone 01/05/19-discussed with medicine and Dr. Lobato on 01/17/19 to hold Eliquis and ASA, on 01/18 Hgb stable so started back on Eliquis 2.5mg po BID as per cardiology rec- on hold altogether for recent drop in H/H despite resolving hematuria -pmh PM with 3rd degree AVB s/p PM with diastolic CHF- medicine following -postural orthostatics clinically was improving on Pyridostigmine and Midodrine with no subjective dizziness until today with elevated sBP 180 in PT following midodrine administration, will d/c Midodrine and monitor on Pyridostigmine alone because this agent works primarily on postganglionic sympathetic nerves which are activated during orthostatics without causing HTN as in the case of midodrine -c/u to hold beta-blockers, c/u to hold diuretics 4. Resp: pmh COPD with interstitial lung disease on recent CT, c/u breathing treatments and supplemental 02, monitor for worsening infection -repeat CXR 01/10/19 no acute infiltrate, no vascular congestion 5. Heme/onc: pmh multiple myeloma, chemo on hold- patient leuokopenic, anemic, and low platelets- c/u to monitor- per medicine recs, Neupogen if wbc <1.5, c/u Acyclovir -s/p 1 unit prbc 01/06/19 and again 01/09/19, Hgb dropped from 8.1 to 7.7 on 01/19/19 s/p 1 unit rbc, today 9.7- if continues to be stable through the weekend will d/c home off Eliquis- FOBT ordered as well-pending collection -c/u venofer per renal- appreciated -port removed 01/13/[address] Dela Cruz appreciated, per oncology port needs to be replaced, will coordinate for outpatient 6. Renal: pmh CKD with recent DUSTIN while getting diuresed, avoid nephrotoxic agents-renal recs appreciated -hypokalemia resolved today, c/u daily supplement and recheck tomorrow, s/p 1 run of Mg 01/19/19, will receive another run today and recheck tomorrow- c/u oral Mg 9. Psch: depression c/u ZOloft 10. GI ppx: protonix 11. DVT ppx: eliquis on hold- dopplers negative for DVT 01/19/19 12. : BPH c/u FLomax- alerted Dr. Jade of patient's case, will formally consult if hematuria does not resolve with discontinuation of eliquis and ASA, otherwise will need otupatient f/u-no further hematuria -urine Cx positive for pseudomona x2 and E. faecalis x1, however patient continues to deny dysuria, discussed with ID, better to treat given he is preparing for more chemotherapy- recs aprpeciated 12. Skin: patient with sacral and groin rash- c/u corn starch and TID perianal care, s/p course of Diflucan 7 12. Dispo: pending stable Hgb and improved Mg levels, goal for Wednesday Allergies Coded Allergies: No Known Allergies (Unverified , 11/16/18) Vital Signs Vital Signs Date Time Temp Pulse Resp B/P (MAP) Pulse Ox O2 Delivery O2 Flow Rate FiO2 01/20/19 06:00 97.6 63 18 130/63 (85) 97 Laboratory Data CBC/BMP Laboratory Tests 01/19/19 22:11 01/20/19 06:55 Red Blood Count 3.20 L, Mean Corpuscular Volume 93.8, Mean Corpuscular Hemoglobin 30.3, Mean Corpuscular Hemoglobin Concent 32.3, Red Cell Distribution Width 21.9 H, Neutrophils (%) (Auto) 76.1 H, Lymphocytes (%) (Auto) 9.2 L, Monocytes (%) (Auto) 11.6 H, Eosinophils (%) (Auto) 1.7, Basophils (%) (Auto) 0.3, Neutrophils # (Auto) 4.9, Lymphocytes # (Auto) 0.6 L, Monocytes # (Auto) 0.7, Eosinophils # (Auto) 0.1, Basophils # (Auto) 0.0, Calcium Level 8.4 L Labs 24H Laboratory Tests 2 01/20/19 06:55: Immature Granulocyte % (Auto) 1.1, White Blood Count 6.4, Red Blood Count 3.20L, Hemoglobin 9.7L, Hematocrit 30.0L, Mean Corpuscular Volume 93.8, Mean Corpuscular Hemoglobin 30.3, Mean Corpuscular Hemoglobin Concent 32.3, Red Cell Distribution Width 21.9H, Platelet Count 73L, Neutrophils (%) (Auto) 76.1H, Lymphocytes (%) (Auto) 9.2L, Monocytes (%) (Auto) 11.6H, Eosinophils (%) (Auto) 1.7, Basophils (%) (Auto) 0.3, Neutrophils # (Auto) 4.9, Lymphocytes # (Auto) 0.6L, Monocytes # (Auto) 0.7, Eosinophils # (Auto) 0.1, Basophils # (Auto) 0.0, Nucleated Red Blood Cells % (auto) 0.6H, Immature Platelet Fraction 2.9, Anion Gap 9, Glomerular Filtration Rate 53.0, Blood Urea Nitrogen 14, Creatinine 1.40H, Sodium Level 142, Potassium Level 4.2#, Chloride Level 114H, Carbon Di oxide Level 19L, Calcium Level 8.4L, Magnesium Level 1.4L Microbiology Microbiology 01/10/19 Blood Culture - Final, Complete NO GROWTH AFTER 5 DAYS 01/16/19 Urine Culture - Final, Complete Pseudomonas Aeruginosa 01/13/19 Urine Culture - Final, Complete Enterococcus Faecalis Pseudomonas Aeruginosa Current Medications Current Medications Current Medications Acetaminophen (Tylenol Tab) 650 mg Q4HP PRN PO MILD PAIN (PS 1-4) Last administered on 01/19/19at 11:55; Start 01/06/19 at 17:45 Acyclovir (Zovirax) 400 mg BID PO Last administered on 01/20/19at 10:12; Start 01/06/19 at 21:00 Al Hydrox/Mg Hydrox/Simethicone (Mylanta) 30 ml Q4HP PRN PO DYSPEPSIA; Start at 17:45 Albuterol Sulfate (Proventil, Ventolin Hfa) 2 puff Q4HP PRN INH SHORTNESS OF BREATH; Start 01/06/19 at 18:00 Albuterol/ Ipratropium (Duoneb (Ipr 0.5mg/Alb 2.5mg)) 3 ml RTID NEB Last administered on 01/19/19at 20:08; Start 01/06/19 at 20:00 Allopurinol (Zyloprim) 300 mg DAILY PO Last administered on 01/20/19at 10:11; Start 01/07/19 at 09:00 Apixaban (Eliquis) 2.5 mg BID PO Last administered on 01/19/19at 08:55; Start 01/18/19 at 10:15; Stop 01/19/19 at 10:40; Status DC Apixaban (Eliquis) 5 mg BID PO Last administered on 01/17/19 08:13; Start 01/06/19 at 21:00; Stop 01/17/19 at 13:56; Status DC Aspirin (Aspirin Chewable) 81 mg QPM PO Last administered on 01/16/19 20:04; Start 01/06/19 at 21:00; Stop 01/17/19 at 13:56; Status DC Atorvastatin Calcium (Lipitor) 20 mg QHS PO Last administered on 01/19/19 20:50; Start 01/06/19 at 21:00 Bisacodyl (Dulcolax Suppository) 10 mg DAILYPRN PRN SC CONSTIPATION; Start 01/06/19 at 17:45 Famotidine (Pepcid) 20 mg DAILY PO Last administered on 01/20/19 10:12; Start 01/07/19 at 09:00 Fluconazole (Diflucan) 100 mg DAILY PO Last administered on 01/18/19 08:38; Start 01/13/19 at 09:00; Stop 01/19/19 at 08:59; Status DC Furosemide (Lasix) 20 mg DAILY PO ; Start 01/15/19 at 18:30; Stop 01/16/19 at 10:50; Status DC Heparin Sodium (Heparin (Flush)) 500 units ASDIRECTED PRN IV SEE LABEL COMMENTS Last administered on 01/11/19 20:26; Start 01/06/19 at 17:45; Stop 01/13/19 at 19:35; Status DC Heparin Sodium (Heparin (Flush)) 500 units DAILY IV Last administered on 01/13/19at 09:27; Start 01/07/19 at 09:00; Stop 01/13/19 at 19:35; Status DC Iron 200 mg/ Sodium Chloride 110 ml @ 110 mls/hr Q48H IV Last administered on 01/18/19 18:58; Start 01/16/19 at 19:00; Stop 01/24/19 at 19:59 Levofloxacin (Levaquin) 500 mg DAILY@06 PO ; Start 01/19/19 at 10:00; Stop 01/19/19 at 10:39; Status DC Levofloxacin (Levaquin) 500 mg DAILY@1800 PO Last administered on 5/30/19at 17:11; Start 01/19/19 at 18:00; Stop 01/26/19 at 17:59 Magnesium Oxide (Mag-Ox) 400 mg BID PO Last administered on 01/20/19at 10:11; Start 01/19/19 at 09:00 Metoprolol Succinate (TopROL XL) 12.5 mg DAILY PO Last administered on 01/13/19at 09:26; Start 01/10/19 at 09:00; Stop 01/13/19 at 12:04; Status DC Metoprolol Succinate (TopROL XL) 25 mg DAILY PO Last administered on 01/08/19at 08:06; Start 01/07/19 at 09:00; Stop 01/09/19 at 11:53; Status DC Midodrine (Proamatine) 2.5 mg 08,12,16 PO Last administered on 01/19/19at 08:54; Start 01/16/19 at 16:00; Stop 01/19/19 at 11:19; Status DC Ondansetron HCl (Zofran) 4 mg Q6HP PRN PO NAUSEA; Start 01/06/19 at 17:45 Potassium Chloride (Micro-K Extencaps) 20 meq BID PO Last administered on 01/08/19at 08:06; Start 01/06/19 at 21:00; Stop 01/08/19 at 13:17; Status DC Potassium Chloride (Micro-K Extencaps) 20 meq DAILY PO Last administered on 01/20/19at 10:12; Start 01/20/19 at 09:00 Potassium Chloride (Micro-K Extencaps) 40 meq DAILY PO Last administered on 01/19/19at 17:03; Start 01/19/19 at 13:00; Stop 01/20/19 at 08:55; Status DC Potassium Chloride (Micro-K Extencaps) 40 meq DAILY PO ; Start 01/20/19 at 09:00; Stop 01/20/19 at 09:00; Status DC Pyridostigmine [place] (Mestinon) 15 mg TID PO ; Start 01/11/19 at 12:30; Stop 01/11/19 at 12:59; Status DC Pyridostigmine [place] (Mestinon) 15 mg TID PO Last administered on 01/13/19at 09:26; Start 01/11/19 at 13:00; Stop 01/13/19 at 12:04; Status DC Pyridostigmine [place] (Mestinon) 30 mg TID PO Last administered on 01/20/19at 10:12; Start 01/13/19 at 16:00 Senna (Senokot) 1 tab QHS PO ; Start 01/06/19 at 21:00; Stop 01/06/19 at 21:00; Status DC Senna/Docusate Sodium (Senokot S) 1 tab BID PO ; Start 01/06/19 at 21:00; Stop 01/06/19 at 21:00; Status DC Sertraline HCl (Zoloft) 100 mg DAILY PO Last administered on 01/09/19at 08:38; Start 01/07/19 at 09:00; Stop 01/10/19 at 10:30; Status DC Sertraline HCl (Zoloft) 100 mg QHS PO Last administered on 01/19/19at 20:50; Start 01/10/19 at 21:00 Sodium Bicarbonate (Sodium Bicarbonate) 325 mg BID PO Last administered on 01/20/19at 10:12; Start 01/09/19 at 09:00 Sodium Chloride 500 ml @ 100 mls/hr Q5H IV Last administered on 01/10/19at 10:40; Start 01/10/19 at 10:28; Stop 01/10/19 at 15:27; Status DC Sodium Chloride 1,000 ml @ 100 mls/hr Q10H IV ; Start 01/10/19 at 10:00; Stop 01/10/19 at 10:30; Status DC Sodium Chloride (Saline Lock Flush) 10 ml ASDIRECTED PRN IV SEE LABEL COMMENTS Last administered on 01/11/19at 20:26; Start 01/06/19 at 17:45; Stop 01/13/19 at 19:35; Status DC Sodium Chloride (Saline Lock Flush) 10 ml DAILY IV Last administered on 01/13/19at 09:27; Start 01/07/19 at 09:00; Stop 01/13/19 at 19:35; Status DC Tamsulosin HCl (Flomax) 0.4 mg QHS PO Last administered on 01/10/19at 22:03; Start 01/06/19 at 21:00; Stop 01/11/19 at 10:07; Status DC Tamsulosin HCl (Flomax) 0.4 mg QHS PO Last administered on 01/19/19at 20:50; Start 01/13/19 at 21:00 Zinc Oxide (Boudreauxs Butt Paste) 1 oz TID TOP Last administered on 01/09/19at 09:20; Start 01/06/19 at 21:00; Stop 01/09/19 at 16:13; Status DC LAXMI LYNN MD January 20, 2019 12:33
--- NOTE | 2019-01-20 16:13 | IPN ---
DATE: 01/20/2019 Mr. Maza seems to be doing great. He wants to go home today, but he probably will not be discharged until Wednesday. He has no complaints. LABORATORY DATA White count is 6.4, hemoglobin 9.7, hematocrit 30, platelets 73, 76% neutrophils, 9% lymphocytes, 11% monocytes. Sodium 142, potassium 4.2, chloride 114, bicarb 19, BUN 14, creatinine 1.4, glucose 100, calcium 8.4, magnesium 1.4. Urine culture from 01/13 catheterize was Enterococcus faecalis and Pseudomonas aeruginosa. Repeat urine culture that was done on 01/16 had many white cells and many red cells in the setting of persistent hematuria. Today the patient feels much better. He does not have any hematuria and does not have dysuria. IMPRESSION 1. Hematuria, probably related to traumatic Gallo catheter insertion. Repeat urine culture had persistent Pseudomonas aeruginosa with pyuria. The patient is immunocompromised. Patient anticipating having chemotherapy next week. Since he is immunosuppressed, I have opted to treat him with 7 days of levofloxacin even though at this point he is asymptomatic. His hematuria has resolved and he does not have dysuria or frequency. 2. History of endocarditis, status post 4 weeks of treatment with IV Rocephin. Removal of his central line. Currently he does not have a line for chemotherapy and this will be placed next week. Repeat cultures from 01/09 and 01/10 have all remained negative. PLAN Continue levofloxacin 500 mg by mouth daily for 7-day course.
[2019-01-20] MEDS: LevoFLOXacin 500 MG TABLET PO SCH (17:10)
[2019-01-20] MEDS: IRON SUCROSE 200 MG in NS 100 ML IV SCH (18:38)
[2019-01-20 19:38] VITALS: BP_SYST 105; BP_SYST 120; BP_SYST 125; BP_DIAS 57; BP_DIAS 62; BP_DIAS 63
[2019-01-20 20:00] VITALS: BP 140/76
[2019-01-20] MEDS: SERTRALINE 100 MG TAB PO SCH (21:17)
[2019-01-20] MEDS: ATORVASTATIN 20 MG TAB PO SCH (21:17)
[2019-01-20] MEDS: TAMSULOSIN 0.4 MG CAP PO SCH (21:17)
[2019-01-21 06:00] VITALS: BP 143/72
[2019-01-21 07:25] LABS: BASO % 0.4 % (0.0-1.0); EOS # 0.1 10^3/uL (0.0-0.50); EOS % 1.9 % (0.0-3.0); HEMATOCRIT 27.8 % (42.0-52.0); LYMPH # 0.6 10^3/uL (1.5-4.5); LYMPH % 10.7 % (24.0-44.0); MEAN CORPUSCULAR HEMOGLOBIN 30.5 pg (27.0-33.0); MEAN CORPUSCULAR HGB CONC 32.4 g/dl (32.0-36.5); MEAN CORPUSCULAR VOLUME 94.2 fl (80.0-96.0); MONO # 0.7 10^3/uL (0.0-0.8); MONO % 12.8 % (0.0-5.0); NEUTROPHILS # 3.8 10^3/uL (1.8-7.7); RED BLOOD COUNT 2.95 10^6/uL (4.30-6.10); WHITE BLOOD COUNT 5.2 10^3/uL (4.0-10.0)
[2019-01-21] MEDS: IPRATROPIUM 0.5MG/ALBUTEROL 2.5MG INH SOL UD 3ML (DUONEB)(J7620) NEB SCH ×3 (07:32→20:21)
[2019-01-21 07:47] LABS: PLATELET COUNT, AUTOMATED 69 10^3/uL (150-450)
[2019-01-21 07:53] LABS: CALCIUM LEVEL 8.1 MG/DL (8.8-10.2); CREATININE FOR GFR 1.27 MG/DL (0.70-1.30); GLOMERULAR FILTRATION RATE 59.3 (>42); MAGNESIUM LEVEL 1.9 MG/DL (1.8-2.4); POTASSIUM SERUM 3.9 MEQ/L (3.5-5.1)
[2019-01-21] MEDS: SODIUM BICARBONATE 325 MG TAB PO SCH ×2 (09:17→21:46)
[2019-01-21] MEDS: ACYCLOVIR 200 MG CAPSULE PO SCH ×2 (09:17→21:48)
[2019-01-21] MEDS: MAGNESIUM OXIDE 400 MG TAB (MAG-OX) PO SCH ×2 (09:17→21:46)
[2019-01-21] MEDS: ALLOPURINOL 300 MG TAB PO SCH (09:17)
[2019-01-21] MEDS: PYRIDOSTIGMINE 60 MG TAB PO SCH ×3 (09:18→21:47)
[2019-01-21] MEDS: FAMOTIDINE 20 MG TAB PO SCH (09:19)
[2019-01-21] MEDS: POTASSIUM CHLORIDE 10 MEQ SR TABLET PO SCH (09:19)
[2019-01-21 14:00] VITALS: BP_SYST 109; BP_SYST 123; BP_SYST 145; BP_SYST 147; BP_DIAS 52; BP_DIAS 66; BP_DIAS 67; BP_DIAS 73
[2019-01-21] MEDS: LevoFLOXacin 500 MG TABLET PO SCH (16:27)
[2019-01-21 20:00] VITALS: BP 154/77
[2019-01-21] MEDS: SERTRALINE 100 MG TAB PO SCH (21:46)
[2019-01-21] MEDS: ATORVASTATIN 20 MG TAB PO SCH (21:46)
[2019-01-21] MEDS: TAMSULOSIN 0.4 MG CAP PO SCH (21:46)
--- NOTE | 2019-01-22 03:55 | IPN ---
DATE OF SERVICE: 01/21/2019 SUBJECTIVE: The patient was seen and examined at the bedside today morning. He is afebrile, hemodynamically stable. His renal function is again better, creatinine is down to 1.2 now. He denies any more dizziness. OBJECTIVE: VITAL SIGNS: Temperature is 97.4 degrees Fahrenheit, blood pressure 109/52, pulse is 89, respiratory rate of 18, saturating 95% on room air. INTAKE AND OUTPUT: Urine output recorded is of 1 liter since overnight. He has incontinent voids. Weight in the bed scale is not available. PHYSICAL EXAMINATION: GENERAL: The patient is awake, alert, oriented x3, sitting on the bed in no apparent distress. HEAD AND NECK EXAM: Extraocular muscles intact. Pupils equally round and reactive to light. Mucous membranes are moist. Neck is supple. There is no jugular venous distention (JVD). CARDIOVASCULAR SYSTEM: S1, S2 and 1+ edema of the bilateral lower extremities. RESPIRATORY: Chest is clear to auscultation bilaterally. Bilateral equal air entry. No rales or rhonchi. ABDOMEN: Soft, obese, positive bowel sounds. Nontender. MUSCULOSKELETAL: No clubbing or cyanosis. Pulses are 2+. CENTRAL NERVOUS SYSTEM (PRINTER TECHNICIAN): No focal deficit. Power is 5/5 in all extremities. LABORATORY REVIEW: Complete blood count (CBC) showed white blood cell (WBC) 5.2, hemoglobin is 9, platelets are 69. Basic metabolic panel (BMP) showed sodium 144, potassium 3.9, chloride 114, bicarbonate is 20, BUN 13 and creatinine is 1.2, it was 1.4 yesterday. Magnesium is 1.9. CURRENT INPATIENT MEDICATIONS: The patient's medications were all reviewed by me. There is no change in the medications today as compared with yesterday. ASSESSMENT/PLAN: 1. Chronic kidney disease stage III. Patient's renal function is stable. Creatinine fluctuates between 1.2 to 1.4. Most likely it is secondary to urinary retention. The patient tends to retain more than 700 mL of urine in the bladder. He continues to be encouraged for frequent voiding. He would not tolerate Flomax because of orthostatic hypotension. 2. Anemia. The patient was given packed red blood cells (PRBC) transfusion. Hemoglobin level is 9. The rest of the anemia workup is as per primary team. 3. Pseudomonas urinary tract infection (UTI). The patient is currently on Levaquin. He needs seven days of Levaquin total. 4. Non-anion gap metabolic acidosis. Bicarbonate level is within the acceptable range. Continue current dose of sodium bicarbonate twice a day. The patient's renal function is stable. His blood pressures are optimal and electrolytes are within the acceptable range. Nephrology service is going to sign off at this moment. Please call nephrology service for any help in the management of this patient during this hospitalization.
[2019-01-22] MEDS: IPRATROPIUM 0.5MG/ALBUTEROL 2.5MG INH SOL UD 3ML (DUONEB)(J7620) NEB SCH ×3 (07:10→20:00)
[2019-01-22] MEDS: SODIUM BICARBONATE 325 MG TAB PO SCH ×2 (09:49→21:05)
[2019-01-22] MEDS: ACYCLOVIR 200 MG CAPSULE PO SCH ×2 (09:49→21:05)
[2019-01-22] MEDS: PYRIDOSTIGMINE 60 MG TAB PO SCH ×3 (09:50→21:06)
[2019-01-22] MEDS: MAGNESIUM OXIDE 400 MG TAB (MAG-OX) PO SCH ×2 (09:50→21:05)
[2019-01-22] MEDS: POTASSIUM CHLORIDE 10 MEQ SR TABLET PO SCH (09:50)
[2019-01-22] MEDS: FAMOTIDINE 20 MG TAB PO SCH (09:51)
[2019-01-22] MEDS: ALLOPURINOL 300 MG TAB PO SCH (09:51)
--- NOTE | 2019-01-22 10:13 | IPNPDOC ---
Subjective Date Seen The patient was seen on 01/22/19. Subjective Chief Complaint/HPI Patient is a 73-year-old male, primary history significant for atrial flutter, multiple myeloma, large B-cell lymphoma, COPD, DVT, CKD 3, admitted and treated for neutropenic fever. Patient was also found to have strep endocarditis. He was treated with a 4 week course of antibiotic therapy. During hospitalization he was also found to have acute diastolic heart failure and worsening dyspnea. Repeat echocardiogram showed persisting mobile echodensity suggesting presence of vegetation been unchanged appearance from his prior study. He was discharged to rehabilitation unit for mobilization and strengthening due to physical deficits noted with prolonged hospitalization. Events since last encounter Seen during therapy. Therapist reports patient had blood pressure dropped from systolic of 190 lying down to 110s on standing up. Objective Physical Examination General Exam: Positive: Alert, Cooperative, No Acute Distress Eye Exam: Positive: PERRLA, EOMI ENT Exam: Positive: Atraumatic, Mucous membr. moist/pink, Tongue Midline, Nares Patent; Negative: Pharyngeal Edema Neck Exam: Positive: Supple; Negative: JVD, thyromegaly Chest Exam: Positive: Clear to auscultation, Normal air movement; Negative: Rales, Rhonchi, Wheezing Heart Exam: Positive: Rate Normal, Regular Rhythm Telemetry: Positive: Sinus Abdomen Exam: Positive: Normal bowel sounds, Soft; Negative: Tenderness Extremity Exam: Positive: Edema (BLE 3+); Negative: Clubbing, Cyanosis Skin Exam: Positive: Nl turgor and temperature, Other skin issue (sacral decub, intertrigino) Neuro Exam: Positive: Normal Speech, Cranial Nerves 3-12 NL Psych Exam: Positive: Mental status NL, Mood NL, Memory Intact, Oriented x 3 Assessment /Plan Problems (1) Anemia Problem Text: -Hemoglobin 9.0 today -S/P transfusion PRBC -Continue to monitor hgb (2) Atrial fibrillation and flutter Problem Text: -S/P PPM placement -Paroxysmal, currently at controlled rate -Continue to hold anticoagulation due to underlying bleed (3) Orthostatic hypotension Problem Text: -Persisting -Patient was started on midodrine, which was discontinued due to hypertension -Bilateral lower extremity Nick wraps since his to be for TEDS -Continue safety precaution, fall precaution -Follow the recommendations of nephrology (4) Diastolic congestive heart failure with preserved left ventricular function, NYHA class 4 Problem Text: -Patient and spouse have not been compliant with fluid restriction -Staff report has been bringing drinks to patient -He has had significant weight gain with worsening bilateral lower extremity edema -continue other guideline directed therapy for management of CHF (5) CKD (chronic kidney disease), stage III Problem Text: -Nephrology on board, managing-follow recommendations (6) DVT prophylaxis Problem Text: -active bleeding with anemia now (7) Hypokalemia Status: Acute Problem Text: -repleted, normalized -monitor to keep greater than 4 (8) Hypomagnesemia Status: Acute Problem Text: Continue to replete and monitor to keep greater than 2 (9) Bacterial endocarditis Problem Text: -treated -Patient has completed a course of antibiotic therapy -repeat ISMAEL unchanged -repeat blood culture negative (10) Urinary retention Discussed With: Patient Problem Text: -continue Flomax -Started on levaquin for +urine culture +pseudomonas Plan/VTE VTE Prophylaxis Ordered?: No VTE Exclusion Mechanical Proph: Other VTE Exclusion Pharmacological: Bleeding Risk VS, I&O, 24H, Fishbone Vital Signs/I&O Vital Signs Date Time Temp Pulse Resp B/P (MAP) Pulse Ox O2 Delivery O2 Flow Rate FiO2 01/21/19 20:00 97.7 83 18 154/77 (102) 99 I&O- Last 24 Hours up to 6 AM 01/22/19 06:00 Intake Total 1500 ml Output Total 1000 ml Balance 500 ml Laboratory Data Microbiology Microbiology 01/16/19 Urine Culture - Final, Complete Pseudomonas Aeruginosa 01/13/19 Urine Culture - Final, Complete Enterococcus Faecalis Pseudomonas Aeruginosa MOISES MATSON [facility] Jan 22, 2019 10:13
[2019-01-22 14:00] VITALS: BP_SYST 101; BP_SYST 142; BP_SYST 155; BP_DIAS 58; BP_DIAS 62; BP_DIAS 72
[2019-01-22] MEDS: LevoFLOXacin 500 MG TABLET PO SCH (17:41)
[2019-01-22] MEDS: IRON SUCROSE 200 MG in NS 100 ML IV SCH (18:15)
[2019-01-22 20:00] VITALS: BP 160/70
[2019-01-22] MEDS: ATORVASTATIN 20 MG TAB PO SCH (21:05)
[2019-01-22] MEDS: TAMSULOSIN 0.4 MG CAP PO SCH (21:05)
[2019-01-22] MEDS: SERTRALINE 100 MG TAB PO SCH (21:06)
[2019-01-23 06:00] VITALS: BP 132/61
[2019-01-23 07:04] LABS: HEMATOCRIT 29.1 % (42.0-52.0); HEMOGLOBIN 9.3 g/dl (13.5-17.5); MEAN CORPUSCULAR HEMOGLOBIN 30.2 pg (27.0-33.0); MEAN CORPUSCULAR VOLUME 94.5 fl (80.0-96.0); RED BLOOD COUNT 3.08 10^6/uL (4.30-6.10)
[2019-01-23 07:05] LABS: PLATELET COUNT, AUTOMATED 76 10^3/uL (150-450)
[2019-01-23 07:29] LABS: ALBUMIN 2.1 GM/DL (3.2-5.2); BILIRUBIN,TOTAL 0.3 MG/DL (0.2-1.0); CALCIUM LEVEL 8.5 MG/DL (8.8-10.2); CREATININE FOR GFR 1.36 MG/DL (0.70-1.30); GLOMERULAR FILTRATION RATE 54.8 (>42); MAGNESIUM LEVEL 1.9 MG/DL (1.8-2.4); TOTAL PROTEIN 5.4 GM/DL (6.4-8.2)
[2019-01-23] MEDS: IPRATROPIUM 0.5MG/ALBUTEROL 2.5MG INH SOL UD 3ML (DUONEB)(J7620) NEB SCH (08:00)
[2019-01-23] MEDS: ACYCLOVIR 200 MG CAPSULE PO SCH (08:41)
[2019-01-23] MEDS: ALLOPURINOL 300 MG TAB PO SCH (08:41)
[2019-01-23] MEDS: FAMOTIDINE 20 MG TAB PO SCH (08:42)
[2019-01-23] MEDS: POTASSIUM CHLORIDE 10 MEQ SR TABLET PO SCH (08:42)
[2019-01-23] MEDS: PYRIDOSTIGMINE 60 MG TAB PO SCH (08:42)
[2019-01-23] MEDS: MAGNESIUM OXIDE 400 MG TAB (MAG-OX) PO SCH (08:42)
[2019-01-23] MEDS: SODIUM BICARBONATE 325 MG TAB PO SCH (08:42)
[2019-01-23] MEDS ORDERED: LEVA1TAB2 PO (08:49)
[2019-01-23] MEDS ORDERED: KLOR10TA76 PO (08:49)
[2019-01-23] MEDS ORDERED: MAG400TA PO (08:49)
--- NOTE | 2019-01-23 11:04 | IPNPDOC ---
Subjective Date Seen The patient was seen on 01/23/19. Subjective Chief Complaint/HPI Patient is a 73-year-old male, primary history significant for atrial flutter, multiple myeloma, large B-cell lymphoma, COPD, DVT, CKD 3, admitted and treated for neutropenic fever. Patient was also found to have strep endocarditis. He was treated with a 4 week course of antibiotic therapy. During hospitalization he was also found to have acute diastolic heart failure and worsening dyspnea. Repeat echocardiogram showed persisting mobile echodensity suggesting presence of vegetation been unchanged appearance from his prior study. He was discharged to rehabilitation unit for mobilization and strengthening due to physical deficits noted with prolonged hospitalization. Events since last encounter Up in wheelchair at bedside. has no complaints. denies chest pain, chills, SOB, weakness Objective Physical Examination General Exam: Positive: Alert, Cooperative, No Acute Distress Eye Exam: Positive: PERRLA, EOMI ENT Exam: Positive: Atraumatic, Mucous membr. moist/pink, Tongue Midline, Nares Patent; Negative: Pharyngeal Edema Neck Exam: Positive: Supple; Negative: JVD, thyromegaly Chest Exam: Positive: Clear to auscultation, Normal air movement; Negative: Rales, Rhonchi, Wheezing Heart Exam: Positive: Rate Normal, Regular Rhythm Telemetry: Positive: Sinus Abdomen Exam: Positive: Normal bowel sounds, Soft; Negative: Tenderness Extremity Exam: Positive: Edema (BLE 3+); Negative: Clubbing, Cyanosis Skin Exam: Positive: Nl turgor and temperature, Other skin issue (sacral decub, intertrigino) Neuro Exam: Positive: Normal Speech, Cranial Nerves 3-12 NL Psych Exam: Positive: Mental status NL, Mood NL, Memory Intact, Oriented x 3 Assessment /Plan Problems (1) Anemia Problem Text: -hgb stable now with holding anticoagulation -S/P transfusion PRBC (2) Atrial fibrillation and flutter Problem Text: -S/P PPM placement -Paroxysmal, currently at controlled rate -Continue to hold anticoagulation due to underlying bleed (3) Orthostatic hypotension Problem Text: -Persisting -Patient was started on midodrine, which was discontinued due to hypertension -Bilateral lower extremity MALLORY wraps since too big for TEDS -Continue safety precaution, fall precaution -Follow the recommendations of nephrology (4) Diastolic congestive heart failure with preserved left ventricular function, NYHA class 4 Problem Text: -continue fluid restriction -continue other guideline directed therapy for management of CHF (5) CKD (chronic kidney disease), stage III Problem Text: -Nephrology on board, managing-follow recommendations (6) Hypokalemia Status: Acute Problem Text: -repleted, normalized -monitor to keep greater than 4 (7) Hypomagnesemia Status: Acute Problem Text: -repleted, now normalized -keep >2 (8) Bacterial endocarditis Problem Text: -treated -Patient has completed a course of antibiotic therapy -repeat ISMAEL unchanged -repeat blood culture negative (9) Urinary retention Discussed With: Patient Problem Text: -continue Flomax -continued on levaquin for UTI - +urine culture +pseudomonas (10) DVT prophylaxis Problem Text: -active bleeding with anemia now Plan/VTE VTE Prophylaxis Ordered?: No VTE Exclusion Mechanical Proph: Other VTE Exclusion Pharmacological: Bleeding Risk VS, I&O, 24H, Fishbone Vital Signs/I&O Vital Signs Date Time Temp Pulse Resp B/P (MAP) Pulse Ox O2 Delivery O2 Flow Rate FiO2 01/23/19 06:00 97.5 83 18 132/61 (84) 91 I&O- Last 24 Hours up to 6 AM 01/23/19 06:00 Intake Total 800 ml Balance 800 ml Laboratory Data 24H LABS Laboratory Tests 2 01/23/19 06:33: Nucleated Red Blood Cells % (auto) 0.0, Immature Platelet Fraction 3.0, Anion Gap 7L, Glomerular Filtration Rate 54.8, Blood Urea Nitrogen 13, Creatinine 1.36H, Sodium Level 144, Potassium Level 4.0, Chloride Level 115H, Carbon Dioxide Level 22, Calcium Level 8.5L, Aspartate Amino Transf (AST/SGOT) 27, Alanine Aminotransferase (ALT/SGPT) 27, Alkaline Phosphatase 76, Total Bilirubin 0.3, Total Protein 5.4L, Albumin 2.1L, Magnesium Level 1.9, Albumin/Globulin Ratio 0.64L CBC/BMP Laboratory Tests 01/23/19 06:33 Red Blood Count 3.08 L, Mean Corpuscular Volume 94.5, Mean Corpuscular Hemoglobin 30.2, Mean Corpuscular Hemoglobin Concent 32.0, Red Cell Distribution Width 22.0 H, Calcium Level 8.5 L, Aspartate Amino Transf (AST/SGOT) 27, Alanine Aminotransferase (ALT/SGPT) 27, Alkaline Phosphatase 76, Total Bilirubin 0.3, Total Protein 5.4 L, Albumin 2.1 L Microbiology Microbiology 01/22/19 Stool Occult Blood (DANIEL) - Final, Complete 01/16/19 Urine Culture - Final, Complete Pseudomonas Aeruginosa 01/13/19 Urine Culture - Final, Complete Enterococcus Faecalis Pseudomonas Aeruginosa MOISES MATSON [facility] Jan 23, 2019 11:04
--- NOTE | 2019-01-28 13:26 | RO ---
DATE OF PROCEDURE: 01/13/2019 ATTENDING SURGEON: Donte Dela Cruz MD SHOE STITCHER ODD: Willa Galvan PREOPERATIVE DIAGNOSES: Endocarditis, left internal jugular vein dual-lumen Port-A-Cath. POSTOPERATIVE DIAGNOSES: Endocarditis, left internal jugular vein dual-lumen Port-A-Cath. PROCEDURE: Left internal jugular vein dual-lumen Port-A-Cath removal. INDICATION: The patient is a 73-year-old male with a history of endocarditis and a previously-placed left internal jugular vein dual-lumen Port-A-Cath who will undergo removal secondary to concern for infection. ANESTHESIA: Local with 10 mL of 2% lidocaine mixed with 0.5% Marcaine. FLUORO TIME: 0.1 minutes. CONTRAST: None. COMPLICATIONS: None. DRAINS: None. SPECIMENS: None. IMPLANTS: None. DESCRIPTION OF PROCEDURE: The patient was taken to the angiography suite, placed supine on the angiography room table. Incision was opened overlying the port after anesthetizing the overlying skin and subcutaneous tissue. The port was dissected free and removed. Hemostasis was obtained, after which the incision was closed using 3-0 Monocryl in inverted interrupted fashion. Steri-Strips and dressings were applied. All instrument, sponge, and needle counts were correct at the end of the case. There were no complications. Dr. Dela Cruz was present for and directed the entire case.
--- NOTE | 2019-01-30 16:56 | IPN ---
DATE: 01/20/2019 NOTE: This is a late dictation. Original dictation done on the day when patient was examined has been lost in the system. SUBJECTIVE: The patient was seen and examined at the bedside in the morning. He was afebrile, hemodynamically stable. His renal function was slightly worse. Creatinine bumped up from 1.3 to 1.4. Hypokalemia was better. The patient still having difficulty with voiding. He was given a unit of packed red blood cell (PRBC) transfusion. His hemoglobin level has appropriately improved. OBJECTIVE: Vital signs: Temperature is 97.6 degrees Fahrenheit, blood pressure 125/63, pulse is 95, respiratory rate of 18, saturating 97% on room air. Intake and output: Urine output recorded as around 550 mL. He had a postvoid residual of 650 mL as well. The patient is being encouraged to void. Weight on the bed scale is not available. PHYSICAL EXAMINATION: General: The patient is awake, alert, oriented times three, laying in bed, in no apparent distress. Head and neck exam: Extraocular muscles intact. Pupils equally round and reactive to light. Mucous membranes are moist. Neck is supple. There is no jugular venous distention (JVD). Cardiovascular: S1, S2. 1+ edema of the lower extremities. Respiratory: Chest is clear to auscultation bilaterally. Bilateral equal air entry. No rales or rhonchi. Abdomen: Soft, obese, positive bowel sounds. Nontender. No organomegaly. Musculoskeletal: No clubbing or cyanosis. Pulses are 2+. Central Nervous System (NEEDLE LOOM WEAVER): No focal deficits. Power is 5/5 in all extremities. LAB REVIEW: CBC showed a WBC of 6.4, hemoglobin is 9.7 which is improved from 8.8 yesterday, platelets are 73. BMP showed sodium 142, potassium 4.2, chloride 114, bicarbonate 19, BUN 14, creatinine is 1.4, magnesium 1.4. CURRENT INPATIENT MEDICATIONS: The patient's medications were all reviewed by me. He was getting a low dose of midodrine. No other change in the medications, and he got one unit of PRBC transfusion yesterday. ASSESSMENT/PLAN: 1. Chronic kidney disease stage III. Patient's renal function has been fluctuating at 1.3 to 1.4. I think most likely most of it is secondary to urinary retention. Otherwise his volume status is optimal. 2. Anemia. The patient was given one unit of PRBC transfusion. Hemoglobin level has nicely improved to 9.7 today. 3. Hypokalemia. Potassium level has improved to 4.2. The patient is getting daily potassium. 4. Non-anion gap metabolic acidosis. Continue current dose of sodium bicarbonate. 5. BPH with the lower urinary tract symptoms. Continue Flomax. Encourage frequent voiding. 6. Hypomagnesemia. IV magnesium sulfate was already ordered today - morning.
[2019-02-07] MEDS ORDERED: VANC125C3 PO (09:15)
[2019-02-07] MEDS ORDERED: VANC1CAP6 PO (09:15)
--- NOTE | 2019-02-11 18:07 | PMRDS ---
DATE OF ADMISSION: 01/06/2019 DATE OF DISCHARGE: 01/23/2019 CHIEF COMPLAINT/DISCHARGE DIAGNOSIS: Endocarditis. 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 emergency department (ED) on 12/25/2018 complaining of diarrhea, fever and inability to walk. On admission, chest x-ray showed chronic changes with a new infiltrate, his stool was negative for Clostridium (C) difficile, he was given gentle hydration and respiratory support with nasal cannula. Repeat blood cultures were negative. He continued to have leukopenia, anemia, hypokalemia and generalized weakness. His fevers improved and he was evaluated by therapy, who found to have significant impairment in gait and activities of daily living (ADLs). He was deemed medically appropriate for discharge to acute rehabilitation unit (ARU) on 12/28/2018. Upon arrival, his explained he had developed a bed sore on his last admission and had been difficult to keep clean while at home and that he was independent without an assistive device until one month ago, with onset of endocarditis. On 12/30/2018, patient developed worsening shortness of breath requiring 10 liters of oxygen, was deemed to be in acute congestive heart failure (CHF) exacerbation and discharged to progressive care unit (PCU) for diuresis and closer monitoring. He was evaluated by ID. He recommended repeating blood cultures, which ultimately came back negative and suggested transesophageal echocardiogram (ISMAEL) in setting of endocarditis, which was done on 01/02/2019 showing "mild left ventricular hypertrophy with preserved left ventricular systolic function, grade 1 diastolic dysfunction. . .sclerosis with aortic valve with no stenosis and mild insufficiency. Cannot completely rule out presence of small vegetation. . .degenerative abnormalities of mitral valve with mild mitral insufficiency. Mobile echo density adjacent to ventricular surface of anterior mitral leaf suggests the presence of vegetation," but ultimately appeared unchanged from prior study. He was continued on IV ceftriaxone, his diuretics adjusted for drops and blood pressures. His leukopenia gradually improved, but he still required supplemental oxygen, causing suspicion for underlying pulmonary process. He was given a blood transfusion for persistent anemia. His potassium supplements were restarted and he was evaluated by therapy and again found to have significant impairments in mobility and ADLs and deemed medically appropriate for discharge to ARU on 01/06/2019. PAST MEDICAL HISTORY: As per history of present illness (HPI). HOSPITAL COURSE: Patient was admitted and enrolled in a comprehensive physical therapy (PT)/occupational therapy (OT), speech, language, pathology program. He received 24-hour nursing supervision and weekly team meetings were held to discuss his overall progress. During his hospital course, patient was initially maintained on Eliquis and aspirin for his history of endocarditis; however, he developed hematuria with drops in his hemoglobin and hematocrit, so his Eliquis and aspirin were discontinued, with resolution of hematuria and stabilization of his hemoglobin/hematocrit. Patient presented with severe postural orthostatics, was not volume depleted and was considered to be due to autonomic dysfunction and responded to pyridostigmine. He has his port removed on 01/13/[address] Dela Cruz with plans for it to be replaced outpatient for his future chemotherapy. He was followed closely by renal, who provided him with Venofer and monitored his fluid status. He had a positive urine culture for Pseudomonas times two, was not symptomatic; however, was ultimately treated for his anticipated port replacement. The patient's sacral rash was treated with cornstarch and he was started on a seven day course of Diflucan for his groin rash. He made gradual but steady improvements in therapy and was able to tolerate functional transfers without becoming symptomatic or orthostatic and eventually was deemed medically and functionally stable to return home. DISCHARGE MEDICATIONS: Please refer to discharge instructions. FUNCTIONAL HISTORY: Upon discharge, patient was standby assist for bed mobility and able to propel his wheelchair 600 feet using bilateral lower extremities. In occupational therapy, he was partial to moderate assist for showering, required spousal assistance for toileting, setup for upper body dressing, partial to moderate assist for lower body dressing. Caregiver was trained and he was sent home with home services and follow up with his oncologist, infectious disease doctor, senior c software engineer and primary care physician.
== END 2019-01-23 13:40 | disposition home or self-care (01) | DRG 940 ==
LOC: M PM&R 14:53 → UNDOADMIN 14:53 → M PM&R 16:25
PROVIDERS: ADMIT Physical Medicine & Rehabilitation; ATTEND Physical Medicine & Rehabilitation
PROC: 30233N1 Transfusion of Nonautologous Red Blood Cells into Peripheral Vein, Percutaneous Approach (ICD-10-PCS; principal; 2019-01-09)
PROC: 05PY03Z Removal of Infusion Device from Upper Vein, Open Approach (ICD-10-PCS; 2019-01-13)
PROC: 30233N1 Transfusion of Nonautologous Red Blood Cells into Peripheral Vein, Percutaneous Approach (ICD-10-PCS; 2019-01-19)
DX: R53.1 Weakness (principal); C90.00 Multiple myeloma not having achieved remission; I50.32 Chronic diastolic (congestive) heart failure; D61.818 Other pancytopenia; E46 Unspecified protein-calorie malnutrition; I48.92 Unspecified atrial flutter; E87.2 Acidosis; R26.89 Other abnormalities of gait and mobility; Z66 Do not resuscitate; I48.0 Paroxysmal atrial fibrillation; R19.7 Diarrhea, unspecified; D63.0 Anemia in neoplastic disease; L89.152 Pressure ulcer of sacral region, stage 2; D50.9 Iron deficiency anemia, unspecified; N40.1 Benign prostatic hyperplasia with lower urinary tract symptoms; R06.02 Shortness of breath; B37.2 Candidiasis of skin and nail; M10.30 Gout due to renal impairment, unspecified site; E87.6 Hypokalemia; B96.5 Pseudomonas (aeruginosa) (mallei) (pseudomallei) as the cause of diseases classified elsewhere; R31.9 Hematuria, unspecified; N18.3 Chronic kidney disease, stage 3 (moderate); R33.9 Retention of urine, unspecified; E83.42 Hypomagnesemia; R53.81 Other malaise; J44.9 Chronic obstructive pulmonary disease, unspecified; F32.9 Major depressive disorder, single episode, unspecified; I95.1 Orthostatic hypotension; Z95.0 Presence of cardiac pacemaker; Z86.718 Personal history of other venous thrombosis and embolism; Z92.3 Personal history of irradiation; Z92.21 Personal history of antineoplastic chemotherapy; Z90.79 Acquired absence of other genital organ(s); Z90.5 Acquired absence of kidney; Z99.81 Dependence on supplemental oxygen; Z79.01 Long term (current) use of anticoagulants; Z79.82 Long term (current) use of aspirin; Z79.899 Other long term (current) drug therapy

== ENCOUNTER → 2019-01-26 | Outpatient (REF) | payer MEDICARE, OTHER ==
[~2019-01-26] MED LIST changes: +ACYC200C8 PO; +ASPI81CH8 PO; +FLUC10TA PO; +KLOR10TA76 PO; +LEVA1TAB2 PO; +MAG400TA PO; +MEST60TA PO; +SERT-138 PO; +SODI325T9 PO
[2019-01-26 13:50] LABS: TOTAL PROTEIN,RANDOM URINE 57.1 MG/DL (0.0-12.0); URINE TOTAL PROTEIN 57.1 MG/DL (0-12)
== END ==
LOC: M LAB REF 12:49
PROVIDERS: ATTEND Internal Medicine Hematology & Oncology
DX: C90.00 Multiple myeloma not having achieved remission (principal); D64.9 Anemia, unspecified

== ENCOUNTER → 2019-02-02 | Outpatient (REF) | payer MEDICARE, OTHER ==
[~2019-02-02] MED LIST changes: +VANC1CAP6 PO
== END ==
LOC: M SFHCPLAZ 13:07
PROVIDERS: ATTEND Internal Medicine Infectious Disease
DX: R19.7 Diarrhea, unspecified (principal)
CPT/HCPCS: 87507; G0463

== ENCOUNTER → 2019-02-21 | Outpatient (CLI) | payer MEDICARE, OTHER ==
[~2019-02-21] MED LIST changes: +BUPIVACAINE HCL 0.5% 10 ML VIAL As Ordered ONE; +LIDOCAINE 2% MDV 20 ML VIAL As Ordered ONE; +ceFAZolin 1GM INJ (J0690 PER 500MG) As Ordered ONE
--- NOTE | 2019-02-21 08:44 | ROOPDOC ---
[facility] [place] Report Of Operation Report of Operation DATE OF PROCEDURE: 02/21/2019 PREOPERATIVE DIAGNOSIS: Multiple myeloma, left internal jugular vein tunneled central venous catheter with subcutaneous port status post removal secondary to infection and right sided pacemaker. POSTOPERATIVE DIAGNOSIS: Multiple myeloma, left internal jugular vein tunneled central venous catheter was subcutaneous port status post removal secondary to infection and right sided pacemaker. PROCEDURE: Ultrasound guided left internal jugular vein cannulation. Fluoroscopic guided left internal jugular vein tunneled central venous catheter with subcutaneous port placement with placement of a power injectable Bard Gambier Power Port with a 28 cm length catheter. SURGEON: Dr. Donte Dela Cruz M.D. SVP GROUP DIRECTOR: Willa Galvan ANESTHESIA: Local with 20 mL of 2% lidocaine mixed with 0.5% Marcaine. SEDATION TIME: None. ANTIBIOTICS: Ancef 2 g FLUOROSCOPY TIME: 0.1 minutes. CONTRAST: None. ESTIMATED BLOOD LOSS: 25 mL. IV FLUID: 50 mL. COMPLICATIONS: None. DRAINS: None. SPECIMENS: None. IMPLANTS: Left internal jugular vein tunneled central venous catheter with subcutaneous port placement using a Bard Gambier Power Port which is power injectable was 28 cm length catheter. INDICATION: Patient is a 73-year-old male with multiple myeloma who requires central venous access for chemotherapy. Patient recently had removal of a left internal jugular vein tunneled central venous catheter was subcutaneous cutaneous port secondary 20 section. Patient has a right sided pacemaker. Patient now requires placement of a new tunneled central venous catheter with subcutaneous port for chemotherapy. Patient was consented to undergo insertion of a left possible right tunneled central venous catheter placement with subcutaneous port. Procedure was described and explained to the patient in detail including drawing of pictures showing the procedure and anatomy associated with insertion of the tunneled central venous catheter was subcutaneous port. Risks, benefits, and alternative treatment options were discussed with the patient. Alternative treatment options included, but were not limited to, no intervention. Benefits included, but were not limited to, access for chemotherapy infusion centrally, avoiding recurrent venous cannulations , IV placements and sclerosis of peripheral veins. Risks included, but were not limited to, infection, bleeding, pneumothorax, hemothorax, possible need for further open surgical intervention, renal failure requiring hemodialysis, failure of the tunneled central venous catheter was subcutaneous port to function requiring evaluation, revision and/or replacement, anesthetic and sedation complication, possible need for transfusion of blood products, allergic reaction and/or complication from the prepping and draping materials, bruising, scarring, cerebrovascular accident, myocardial infarction, pulmonary embolus, deep venous thrombosis, loss of limb, loss of life, and poor outcome. Risks of not performing the port insertion included but were not limited to inability to gain access for chemotherapy, inability to gain access for blood draws and laboratory evaluation, sclerosis and thrombophlebitis of peripheral veins and pain associated with continued peripheral cannulations. Patient's questions were answered. Patient voices understanding of these risks, benefits, and alternative treatment options. Patient voices acceptance of the risks associated with placement of a central venous tunneled catheter with subcutaneous port placement and consents to proceed with tunneled central venous catheter with subcutaneous port placement. No guarantees or promises were made regarding the results or outcome of the procedure. DESCRIPTION OF PROCEDURE: Patient was taken to the angiography suite, placed supine on the angiography room table, and prepped and draped in a standard surgical fashion. A time-out was conducted by myself and the team members involved in the procedure, confirming the correct procedure, patient, and laterality. Ultrasound was then used to evaluate the left internal jugular vein, which was noted to be easily compressible, widely patent, and free of thrombus. Ultrasound was then used to guide cannulation of the left internal jugular vein with a micropuncture needle with real-time concurrent visualization of the entry of the needle into the left internal jugular vein with a hardcopy image preserved. The skin overlying the left internal jugular vein was anesthetized with 2% lidocaine mixed with 0.5% Marcaine prior to cannulation. Once the left internal jugular vein was cannulated, the micropuncture wire was advanced through the micropuncture needle, which was up-sized to a micropuncture sheath. A J wire was advanced through the micropuncture sheath. The left internal jugular vein was then dilated under fluoroscopic guidance, and a #8-Indian introducer sheath was positioned through the left internal jugular vein into the superior vena cava. The wire was removed, and the #8-Indian single lumen catheter, which had been tunneled from a puncture wound in the left chest and brought out at the puncture wound at the left internal jugular vein entry site, was advanced through the introducer sheath under fluoroscopic guidance. The introducer sheath was then removed, and the catheter was positioned with the tip in the superior vena cava/right atrial junction under fluoroscopic guidance. The catheter was cut to a length of 28 cm and attached to the port. A pocket was created in the left chest after anesthetizing the overlying tissue with 2% lidocaine mixed with 0.5% Marcaine. The port was placed in the pocket and cannulated using an access needle. The port was noted to aspirate and flush easily and then was flushed with heparinized saline. The incision in the left chest was closed using # 4-0 Monocryl suture in inverted interrupted fashion. The puncture wound in the left neck was closed using a #4-0 Monocryl in inverted interrupted fashion. Steri-Strips and dressings were applied. Patient tolerated the procedure well. All instrument, sponge, and needle counts were correct at the end of the case. There were no complications. Dr. Dela Cruz was present for and directed the entire case. Patient was transferred to the recovery area and subsequently discharged in stable condition. The tunneled central venous catheter with subcutaneous port is stable for use for access. RADIOLOGIC SUPERVISION AND INTERPRETATION: The ultrasound showed the left internal jugular vein to be easily compressible, widely patent, and free of thrombus. Ultrasound was used to guide cannulation of the left internal jugular vein with real-time concurrent visualization of the entry of the needle into the left internal jugular vein. The left internal jugular vein was then dilated under fluoroscopic guidance with a #8-Indian introducer sheath placed under fluoroscopic guidance. The 8 Indian single lumen catheter was advanced through the introducer sheath positioned with the tip in the superior vena/right atrial junction using fluoroscopic guidance with final fluoroscopic image showing the catheter and port to be in good position and good alignment with the tip in the superior vena cava/right atrial junction with no pneumo- or hemothorax noted. The tunneled central venous catheter with subcutaneous port is stable for use. Tyson Dela Cruz MD Feb 21, 2019 08:44
== END | disposition home or self-care (01) ==
LOC: M IRPRO 07:15
PROVIDERS: ATTEND Internal Medicine Hematology & Oncology
DX: C90.00 Multiple myeloma not having achieved remission (principal); Z95.0 Presence of cardiac pacemaker
CPT/HCPCS: 36561; 76937; 77001; C1788; C1894; J0690

== ENCOUNTER → 2019-02-27 | Outpatient (CLI) | payer MEDICARE, OTHER ==
[~2019-02-27] MED LIST changes: -BUPIVACAINE HCL 0.5% 10 ML VIAL As Ordered ONE; -LIDOCAINE 2% MDV 20 ML VIAL As Ordered ONE; -ceFAZolin 1GM INJ (J0690 PER 500MG) As Ordered ONE
== END ==
LOC: M LAB 11:57
PROVIDERS: ATTEND Physician Assistant
DX: I38 Endocarditis, valve unspecified (principal)

== ENCOUNTER → 2019-02-28 | Outpatient (CLI) | payer MEDICARE, OTHER | LOC: M LAB 10:43 | PROVIDERS: ATTEND Internal Medicine Cardiovascular Disease | DX: I38 Endocarditis, valve unspecified (principal) ==

== ENCOUNTER → 2019-03-03 | Outpatient (CLI) | payer MEDICARE, OTHER | LOC: M LAB 11:24 | PROVIDERS: ATTEND Internal Medicine Infectious Disease | DX: I05.8 Other rheumatic mitral valve diseases (principal) ==

== ENCOUNTER → 2019-03-03 | Outpatient (CLI) | payer MEDICARE, OTHER | LOC: M LAB 11:27 | PROVIDERS: ATTEND Internal Medicine Cardiovascular Disease | DX: I05.8 Other rheumatic mitral valve diseases (principal) ==

== ENCOUNTER 2019-04-27 07:09 | Day surgery (SDC) | payer MEDICARE, OTHER ==
[~2019-04-27] VITALS: Ht 182.9 cm; Wt 101.3 kg
[~2019-04-27 07:09] MED LIST changes: +BALANCED SALT IRRIGATION SOLUTION 500ML BAG (FOR OR EYE MACHINE) As Ordered ONE; +BREO1INH3 INH; +CEFUROXIME 1MG/0.1ML INTRACAMERAL INJ As Ordered ONE; +DUOVISC (0.50ML VISCOAT/0.55ML PROVISC) OPHTH KIT As Ordered ONE; +LIDOCAINE 0.75%/EPINEPHRINE 0.025% IN BSS 1ML SYR INTRACAMERAL (OR ONLY) As Ordered ONE; +OFLOXACIN 0.3 % (OCUFLOX) OPTH SOL 5ML OS ONE; +PHENYLEPHRINE 2.5% OPHTH SOL 2ML OS ONE; +POVIDONE-IODINE 5% OPHTH PREP SOL 30ML As Ordered ONE; +PROPARACAINE 0.5% OPHTH SOL 15ML OS ONE; +TROPICAMIDE 1% OPHTH SOLN 2ML OS ONE
[2019-04-27] MEDS ORDERED: MIDAZOLAM INJ 2 MG/2 ML VIAL (J2250) As Ordered ONE (08:31)
[2019-04-27] MEDS ORDERED: fentaNYL 100 MCG/2 ML INJECTION (J3010) As Ordered ONE (08:31)
[2019-04-27] MEDS ORDERED: ACETYLCHOLINE OPHTH SOLN 1% 2ML (MIOCHOL-E) As Ordered ONE (08:50)
[2019-04-27] MEDS ORDERED: ONDANSETRON 4MG/2ML VIAL (J2405) IV PRN (09:15)
[2019-04-27 09:25] VITALS: BP 130/60
--- NOTE | 2019-04-28 17:50 | RO ---
DATE OF PROCEDURE: 04/27/2019 PREOPERATIVE DIAGNOSIS: Visually significant nuclear sclerotic cataract left eye. POSTOPERATIVE DIAGNOSIS: Visually significant nuclear sclerotic cataract left eye. PROCEDURE: Cataract extraction with use of phacoemulsification and placement of intraocular lens, AU00T0, 20.0 D, left eye. SURGEON: Terrence Vasquez DO HEATER FURNACE: None. ANESTHESIA: Local with monitored anesthesia care (MAC). COMPLICATIONS: None. POSTOPERATIVE CONDITION: Stable. INDICATIONS FOR SURGERY: 1. Blurred vision affecting patients activities of daily living. DESCRIPTION OF PROCEDURE: The patient was seen in the preoperative area and properly identified. The correct operative eye was identified and marked. The patient received topical anesthetic, antibiotics, and topical dilating drops. The patient was then transferred to the operating room. The correct side was re-identified, and a time-out was performed. The eye was prepped and draped in a sterile fashion. The eyelids were isolated with Tegaderm tape, and the lids were held open with an adjustable speculum. A 1.0 mm paracentesis incision was made. Intraocular preservative-free Shugarcaine was then injected into the anterior chamber. Viscoelastic was then injected into the anterior chamber through the paracentesis. Using a 2.4 mm sharp-tipped keratome, the anterior chamber was entered via a temporal clear cornea incision. A continuous curvilinear capsulorrhexis was created with Utrata forceps. Hydrodissection was performed with balanced salt solution (BSS) on a blunt cannula until the nucleus was able to rotate freely. The crystalline lens was phacoemulsified and aspirated. Irrigation/aspiration was used to remove the cortical material. Cohesive viscoelastic was placed into the capsular bag to deepen it. The implant was placed into the capsular bag and allowed to unfold. Placement was confirmed by visualizing the anterior capsulorrhexis. Irrigation/aspiration was used to remove the viscoelastic. The clear corneal incision was hydrated with BSS on a blunt cannula. The lens was well positioned. The incisions were then tested for leaks and found to be negative. The eye was then palpated for appropriate pressure and adjusted accordingly with BSS. The eyelid speculum was then carefully removed. A shield was placed over the eye. The patient tolerated the procedure well and was discharged to the recovery unit in a stable condition.
[2019-05-01] MEDS ORDERED: BESI0.6S (12:52)
[2019-05-01] MEDS ORDERED: BROM0.07 (12:52)
[2019-05-01] MEDS ORDERED: PREDOPD (12:52)
[2019-05-01] MEDS ORDERED: REVL10CA2 PO (13:47)
== END 2019-04-27 09:55 | disposition home or self-care (01) ==
LOC: M SDC 07:09
PROVIDERS: ATTEND Ophthalmology
DX: H25.12 Age-related nuclear cataract, left eye (principal); I25.2 Old myocardial infarction; I10 Essential (primary) hypertension; K21.9 Gastro-esophageal reflux disease without esophagitis; D64.9 Anemia, unspecified; Z87.891 Personal history of nicotine dependence; Z79.899 Other long term (current) drug therapy; M10.9 Gout, unspecified
CPT/HCPCS: 66984; J2250; J3010; V2632

== ENCOUNTER 2019-05-11 12:06 | Day surgery (SDC) | payer MEDICARE, OTHER ==
[~2019-05-11] VITALS: Ht 182.9 cm; Wt 104.3 kg
[~2019-05-11 12:06] MED LIST changes: +BESI0.6S; +BROM0.07; -LIDOCAINE 0.75%/EPINEPHRINE 0.025% IN BSS 1ML SYR INTRACAMERAL (OR ONLY) As Ordered ONE; +LIDOCAINE 1% SDV 5 ML VIAL As Ordered ONE; +OFLOXACIN 0.3 % (OCUFLOX) OPTH SOL 5ML OD ONE; -OFLOXACIN 0.3 % (OCUFLOX) OPTH SOL 5ML OS ONE; +PHENYLEPHRINE 2.5% OPHTH SOL 2ML OD ONE; -PHENYLEPHRINE 2.5% OPHTH SOL 2ML OS ONE; +PREDOPD; +PROPARACAINE 0.5% OPHTH SOL 15ML OD ONE; -PROPARACAINE 0.5% OPHTH SOL 15ML OS ONE; +TROPICAMIDE 1% OPHTH SOLN 2ML OD ONE; -TROPICAMIDE 1% OPHTH SOLN 2ML OS ONE
[2019-05-11] MEDS ORDERED: MIDAZOLAM INJ 2 MG/2 ML VIAL (J2250) As Ordered ONE (12:37)
[2019-05-11] MEDS ORDERED: fentaNYL 100 MCG/2 ML INJECTION (J3010) As Ordered ONE (12:37)
[2019-05-11 15:05] VITALS: BP 131/64
--- NOTE | 2019-05-13 20:42 | RO ---
DATE OF PROCEDURE: 05/11/2019 PREOPERATIVE DIAGNOSIS: 1. Visually significant nuclear sclerotic cataract right eye. POSTOPERATIVE DIAGNOSIS: 1. Visually significant nuclear sclerotic cataract right eye. PROCEDURE: 1. Cataract extraction with use of phacoemulsification and placement of intraocular lens, AU00T0, 20.0 D, right eye. SURGEON: Terrence Vasquez DO PAIL TESTER: None. ANESTHESIA: Local with monitored anesthesia care (MAC). COMPLICATIONS: None. POSTOPERATIVE CONDITION: Stable. INDICATIONS FOR SURGERY: 1. Blurred vision affecting patients activities of daily living. DESCRIPTION OF PROCEDURE: The patient was seen in the preoperative area and properly identified. The correct operative eye was identified and marked. The patient received topical anesthetic, antibiotics, and topical dilating drops. The patient was then transferred to the operating room. The correct side was re-identified, and a time-out was performed. The eye was prepped and draped in a sterile fashion. The eyelids were isolated with Tegaderm tape, and the lids were held open with an adjustable speculum. A 1.0 mm paracentesis incision was made. Intraocular preservative-free Shugarcaine was then injected into the anterior chamber. Viscoelastic was then injected into the anterior chamber through the paracentesis. Using a 2.4 mm sharp-tipped keratome, the anterior chamber was entered via a temporal clear cornea incision. A continuous curvilinear capsulorrhexis was created with Utrata forceps. Hydrodissection was performed with balanced salt solution (BSS) on a blunt cannula until the nucleus was able to rotate freely. The crystalline lens was phacoemulsified and aspirated. Irrigation/aspiration was used to remove the cortical material. Cohesive viscoelastic was placed into the capsular bag to deepen it. The implant was placed into the capsular bag and allowed to unfold. Placement was confirmed by visualizing the anterior capsulorrhexis. Irrigation/aspiration was used to remove the viscoelastic. The clear corneal incision was hydrated with BSS on a blunt cannula. The lens was well positioned. The incisions were then tested for leaks and found to be negative. The eye was then palpated for appropriate pressure and adjusted accordingly with BSS. The eyelid speculum was then carefully removed. A shield was placed over the eye. The patient tolerated the procedure well and was discharged to the recovery unit in a stable condition.
== END 2019-05-11 15:20 | disposition home or self-care (01) ==
LOC: M SDC 12:06
PROVIDERS: ATTEND Ophthalmology
DX: H25.11 Age-related nuclear cataract, right eye (principal); I10 Essential (primary) hypertension; I25.2 Old myocardial infarction; I50.9 Heart failure, unspecified; M10.9 Gout, unspecified; K21.9 Gastro-esophageal reflux disease without esophagitis; Z87.891 Personal history of nicotine dependence; Z85.528 Personal history of other malignant neoplasm of kidney; Z92.21 Personal history of antineoplastic chemotherapy
CPT/HCPCS: 66984; J2250; J3010; V2632

== ENCOUNTER → 2019-08-11 | Outpatient (CLI) | payer MEDICARE, OTHER ==
[~2019-08-11] MED LIST changes: +ASPI81TA85 PO; -AZIT500T2 PO; +AZIT500T5 PO; -BALANCED SALT IRRIGATION SOLUTION 500ML BAG (FOR OR EYE MACHINE) As Ordered ONE; -CEFUROXIME 1MG/0.1ML INTRACAMERAL INJ As Ordered ONE; -DUOVISC (0.50ML VISCOAT/0.55ML PROVISC) OPHTH KIT As Ordered ONE; -LIDOCAINE 1% SDV 5 ML VIAL As Ordered ONE; -OFLOXACIN 0.3 % (OCUFLOX) OPTH SOL 5ML OD ONE; -PHENYLEPHRINE 2.5% OPHTH SOL 2ML OD ONE; +POTA1TAB23 PO; -POVIDONE-IODINE 5% OPHTH PREP SOL 30ML As Ordered ONE; -PROPARACAINE 0.5% OPHTH SOL 15ML OD ONE; +REVL5CAP2 PO; +SENN-53 PO; -SENN1TAB40 PO; -TROPICAMIDE 1% OPHTH SOLN 2ML OD ONE
--- NOTE | 2019-08-11 13:16 | REP ---
CHEST, TWO VIEWS: Two views of the chest are performed and compared to a prior study of 01/08/2019. There is mild scattered fibrotic change particularly in the lung bases. This is stable. No new infiltrate is seen. Heart is not enlarged. There is some tortuosity of the thoracic aorta. The mediastinal silhouette is unchanged. Left Mediport catheter is again seen with the tip in the superior vena cava. Right pacemaker is unchanged. There are degenerative changes of the spine. There is mild compression deformity of an upper thoracic vertebral body. This is also stable. IMPRESSION: Stable chronic changes with no acute pulmonary disease. Electronically Signed by Joshua Saab MD 08/11/2019 04:53 P
== END ==
LOC: M RAD 10:20
PROVIDERS: ATTEND Internal Medicine Hematology
DX: C90.00 Multiple myeloma not having achieved remission (principal)

== ENCOUNTER → 2019-08-31 | Outpatient (REF) | payer MEDICARE, OTHER ==
[~2019-08-31] MED LIST changes: +POMA2CAP PO
[2019-08-31 14:19] LABS: ALBUMIN 3.1 GM/DL (3.2-5.2); CALCIUM LEVEL 8.5 MG/DL (8.8-10.2); CREATININE FOR GFR 2.35 MG/DL (0.70-1.30); GLOMERULAR FILTRATION RATE 29.1 (>42); MAGNESIUM LEVEL 2.3 MG/DL (1.8-2.4); PHOSPHORUS LEVEL 3.9 MG/DL (2.5-4.9); POTASSIUM SERUM 4.3 MEQ/L (3.5-5.1); URIC ACID 2.8 MG/DL (3.5-7.2)
== END ==
LOC: M LAB REF 13:39
PROVIDERS: ATTEND Internal Medicine Nephrology
DX: N18.3 Chronic kidney disease, stage 3 (moderate) (principal); M1A.30X0 Chronic gout due to renal impairment, unspecified site, without tophus (tophi)

== ENCOUNTER → 2020-04-11 | Outpatient (CLI) | payer MEDICARE, OTHER ==
[~2020-04-11] MED LIST changes: +AMLO1TAB24 PO; -AMLO5TAB6 PO; +ASPI81CH33 PO; -ASPI81TA85 PO; +ASPI81TA86 PO; -COUM7.5T PO; +COUM7.5T6 PO; +D32000TA PO; +LASI20TA3 PO; -MONT10TA2 PO; +MONT10TA4 PO; +PANT40TA29 PO; -PANT40TA3 PO; +POMA1CAP PO; +VITA1CHW7 PO
--- NOTE | 2020-05-14 07:53 | REP ---
BILATERAL CAROTID DUPLEX ULTRASOUND FINDINGS: There is shallow atheromatous plaque in the common carotid arteries extending into the internal carotid arteries and external carotid arteries bilaterally. PEAK FLOW VELOCITY ANALYSIS RIGHT LEFT Peak ICA velocity 55.6 cm/s 103.0 cm/s Diastolic ICA velocity 20.0 cm/s 29.1 cm/s ICA/CCA ratio 0.42 1.15 Peak ECA flow velocity 146 cm/s 118 cm/s Peak CCA flow velocity 133 cm/s 84.8 cm/s The peak flow velocity in the right ECA is mildly elevated compatible with 50- 69% stenosis. The peak flow velocities are otherwise unremarkable. There is antegrade flow in the vertebral arteries bilaterally. IMPRESSION: Mild stenosis of the right external carotid artery (ECA). MTDD
== END ==
LOC: M RAD 12:59
PROVIDERS: ATTEND Physician Assistant
DX: I65.23 Occlusion and stenosis of bilateral carotid arteries (principal)

== ENCOUNTER 2020-09-09 15:26 | Emergency (ER) | payer MEDICARE, OTHER ==
[~2020-09-09] VITALS: Ht 182.9 cm; Wt 115.5 kg
[~2020-09-09 15:26] MED LIST changes: +D31000TA2 PO; -MAG400TA PO; +MAGN400T35 PO; +MONT10TA10 PO; -MONT10TA4 PO
--- OUTSIDE RECORDS SUMMARY | 2020-09-09 15:33 | CCD | Continuity of Care Document ---
Author Author Camilo MINA D.O. Organization Unknown Address [address] [place] [id number] Phone [phone] Care Team Providers Care Systems Support Specialist Name Role Phone Ervin Sage M.D. AUTM [phone] Iftikhar Mullen M.D. AUTM [phone] Richard Lujan MD AUTM Tyson WallsMNicolas P.CNicolas AUTM [phone] Amando Hickman M.D. AUTM [phone] Rolando Dick AUTM [phone] Gonzales Adams M.D. 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O., FAA FP Onset: 04/29/2016 Note: B cell currently on chemo Complete atrioventricular block Sylvester Mina D.O., FAAFP Onset: 12/06/2017 Note: BI PACEMAKER Multiple myeloma Sylvester Mina D.O., FAAFP Onset: 12/23 Note: on going tx smc Bacterial endocarditis Sylvester Mina D.O., FAAFP Onset: 0 03/09/2019 Note: MITRAL VALVE 2019 TX NO LUISA VE REPLACEMENT Social History Type Date Description Comments Sex Unknown Tobacco Use Start: Unknown End: Unknown Former Cigar ette Smoker 1 1/2 Packs Daily for 40 years Tobacco Use Start: Unknown , quit 04/2002. ETOH Use Occasionally consumes beer Tobacco Use Start: Unknown End: Unknown Patient is a former smoker quit 2001 Smoking Status Reviewed: 04/15/20 Patient is a former smoker qu it 2001 Exercise Type/Frequency Walks daily Allergies, Adverse Reactions, Alerts Active Allergies Reaction Severity Comments Date NSAIDs only one kidney 08/31/2012 Inactive Allergies NKDA 04/29/2004 Medications Active Medications SIG Qnty Indications Ordering Provide r Date Wheelchair Misc use qd as directed c85.9 1units Sylvester Mina D.O., FAAFP 08/2019 Sertraline HCL 50mg Tablets take one tablet by mouth every day 30tabs ySlvester Mina D.O., FAAFP 02/19/2020 Acyclovir 400mg Tablets Take One Tablet By Mouth Twice A Day 60tabs Sylvester Mina D.O., FAAFP 0 04/03/2019 Potassium Chloride ER 10Meq Tablet s ER Take One Tablet By Mouth Once A Day 60tabs Sylvester collins D.O., FAAFP 01/31/2019 Famotidine 20mg Tablets Take One Tablet By Mouth Every Day 180tabs Sylvester Mina D.O., FAAFP Prevnar 13 Suspension 08/03/17 as directed last pnemo 23 was in jul 2016 Sylvester Mina D.O., [facility] 07/21/2017 Zostavax 82683Lpx/0.65ML Solution Rec inject as directed 1units Sylvester Mina D.O., [facility] 07/25/2014 Darzalex 400mg/20ML Solution Dose Unclear Unknown Pomalyst 1mg Capsules 1 po qd Chemo Med Unknown Lasix 20mg Tablets 1 by mouth every day prn edema Unknown Aspirin [address] 1 by mouth every day Unknown Breo Ellipta 200-25mcg/Inh Aerosol one puff daily Unknown Sodium Bicarbonate 325mg Tablets 1 by mouth twice a day Unknown Pyridostigmine [place] 60mg Tablet s Take One-Half Tablet By Mouth Three Times A Day 135tabs Sylvester Mina D.O., [facility] Magnesium Oxide 400mg Capsules 1 by mouth twice a day Unknown Atorvastatin Calcium 20mg Tablets take one tablet by mouth every day 90tabs Sylvester Mina D.O., [facility] Allopurinol 300mg Tablets Take One Tablet By Mouth Every Day 30tabs Sylvester Mina D.O., [facility] Vitamin D 2000Unit Tablets 1 by mouth every day Unknown Medications Administered in Office Medication SIG Qnty Indications Ordering Provider Date Injection ([place])/(Im) Injection Sylvester Mina D.O., [facility] 06/01/2013 Injection (SC)/(Im) Injection Sylvester Mina D.O., [facility] 05/30/2012 Injection (SC)/(Im) Injection Sylvester Mina D.O., [facility] 07/09/2011 Injection ([place])/(Im) Injection Sylvester Mina D.O., [facility] 05/26/2011 Immunizations CPT Code Status Date Vaccine Lot # [id number] Given 05/29/2020 Influenza Virus Vaccine, Quadrivalent, Slit Virus, Im Use 3Y & Up [id number] 92363 Given 06/15/2019 Influenza Virus Vaccine, Quadrivalent, Slit Virus, Im Use 3Y & Up [id number] 01282 Given 05/02/2018 Influenza Virus Vaccine, Quadrivalent, Slit Virus, Im Use 3Y & Up [id number] 99337 Given 04/29/2017 Influenza Virus Vaccine, Quadrivalent, Slit Virus, Im Use 3Y & Up [id number] 15836 Given 07/29/2016 Pneumococcal Immunization [id number] 58244 Given 04/29/2016 Influenza Vaccin e (Fluzone) 3Yrs Of Age Or Older Medicare Plans [id number] 42306 Given 05/28/2015 Influenza Vaccin e (Fluzone) 3Yrs Of Age Or Older Medicare Plans [id number] Q2037 Given 05/10/2014 Influenza Vaccin e (Fluvirin) 3Yrs Of Age Or Older Medicare Plans [id number] 97576 Given 06/01/2013 Influenza Virus Vac. Split Virus Individuals 3 Years And Above [id number] 09105 Given 05/30/2012 Influenza Virus Vac. Split Virus Individuals 3 Years And Above [id number] 73236 Given 07/09/2011 Pneumococcal Immunization 14 [id number] 87241 Given 05/26/2011 Influenza Virus Vac. Split Virus Individuals 3 Years And Above [id number] Vital Signs Date Vital Result Comment 07/25/2020 1:06pm BP Systolic 140 mmHg BP Diastolic 70 mmHg Body Temperature 97.2 F Heart Rate 68 /min Respiratory Rate 20 /min Height 72 inches 6'0" Weight 253.00 lb [place] Body Weight 178 lb BMI (Body Mass Index) 34.3 kg/m2 O2 % BldC Oximetry 97 % 04/16/2020 2:08pm BP Systolic 114 mmHg BP Diastolic 56 mmHg Body Temperature 98.1 F Heart Rate 72 /min Respiratory Rate 18 /min Height 72 inches 6'0" Weight 252.00 lb [place] Body Weight 178 lb BMI (Body Mass Index) 34.2 kg/m2 O2 % BldC Oximetry 96 % Results Test Acquired Date Facility Test Result H/L Range Note CBC With Auto Differential OB 07/02/2020 [facility] (Interface) [phone] White Blood Count 4.9 10 Normal 4.0-10.0 Red Blood Count 3.81 10 Low 4.30-6.10 Hemoglobin 11.2 g/dL Low 13.5-17.5 Hematocrit 36.7 % Low 42.0-52.0 Mean Corpuscular Volume 96.3 fl High 80.0-96.0 Mean Corpuscular Hemoglobin 29.4 pg Normal 27.0-33.0 Mean Corpuscular HGB Conc 30.5 g/dL Low 32.0-36.5 Red Cell Distribution Width 17.9 % High 11.5-14.5 Platelet Count, Automated 201 10 Normal 150-450 Neutrophils % 54.5 % Normal 36.0-66.0 Lymph % 20.1 % Low 24.0-44.0 Linn % 20.3 % High 0.0-5.0 Eos % 2.5 % Normal 0.0-3.0 Baso % 1.8 % High 0.0-1.0 Immature Granulocyte % 0.8 % Normal 0-3.0 Nucleated Red Blood Cell % 0.0 % Normal 0-0 Neutrophils # 2.7 10 Normal 1.5-8.5 Lymph # 1.0 10 Low 1.5-5.0 Linn # 1.0 10 High 0.0-0.8 Eos # 0.1 10 Normal 0.0-0.5 Baso # 0.1 10 Normal 0.0-0.2 Comprehensive Metabolic Profil 07/02/2020 [facility] (Interface) [phone] Glucose, Fasting 120 mg/dL High 70-100 Blood Urea Nitrogen 37 mg/dL High 7-18 Creatinine For GFR 2.62 mg/dL High 0.70-1.30 Glomerular Filtration Rate 25.6 Low >42 1 Sodium Level 139 mEq/L Normal 136-145 Potassium Serum 4.7 mEq/L Normal 3.5-5.1 Chloride Level 109 mEq/L High 98-107 Carbon Dioxide Level 23 mEq/L Normal 21-32 Anion Gap 7 mEq/L Low 8-16 Calcium Level 9.1 mg/dL Normal 8.8-10.2 Ast/Sgot 13 U/L Normal 7-37 Alt/SGPT 21 U/L Normal 12-78 Alkaline Phosphatase 64 U/L Normal 45-117 Bilirubin,Total 0.4 mg/dL Normal 0.2-1.0 Total Protein 6.6 GM/DL Normal 6.4-8.2 Albumin 3.2 GM/DL Normal 3.2-5.2 Albumin/Globulin Ratio 0.9 Normal Immunotyping (Immunofixation) Serum (If 07/02/2020 [facility]) [phone] It Serum Interpretation SEE COMMENT Normal 2 Its Pathologist Review REV'D BY Whitley OLIVA Normal Serum Protein Electrophoresis 07/02/2020 [facility]) [phone] Albumin % 55.6 % Low 55.8-66.1 Sgphr-2-Vqhnghnt % 6.1 % High 2.9-4.9 Kgugi-7-Aywcxuybl % 15.3 % High 7.1-11.8 Jqcr-5-Voobkpifr % 6.4 % Normal 4.7-7.2 Iblf-8-Wwypnnujc % 5.8 % Normal 3.2-6.5 Gamma Globulin % 10.8 % Low 11.1-18.8 Albumin 3.34 GM/DL Normal 3.29-5.55 Miozu-0-Zchqirykx 0.37 GM/DL Normal 0.17-0.41 Yfwpd-0-Qqayophtv 0.92 GM/DL Normal 0.42-0.99 Ydkf-6-Woltnmuhx 0.38 GM/DL Normal 0.28-0.60 Oqad-9-Ucdkpwhek 0.35 GM/DL Normal 0.19-0.55 Gamma Globulins 0.65 GM/DL Normal 0.65-1.58 Total Protein 6.0 GM/DL Low 6.4-8.2 Spep Interpretation SEE COMMENT Normal 3 Spep Pathologist Review REV'D BY Whitley OLIVA Normal Free Chase & Lambda LT Chains 07/02/2020 [facility]) [phone] Free Chase Light Chains Serum 51.6 mg/L High 3. 3-19.4 Free Lambda Light Chains Serum 24.5 mg/L Normal 5.7-26.3 Chase/Lambda Ratio Serum 2.11 High 0.26-1.65 4 CBC With Auto Differential OB 06/04/2020 [facility]) [phone] White Blood Count 5.1 10 Normal 4.0-10.0 Red Blood Count 3.77 10 Low 4.30-6.10 Hemoglobin 11.2 g/dL Low 13.5-17.5 Hematocrit 36.4 % Low 42.0-52.0 Mean Corpuscular Volume 96.6 fl High 80.0-96.0 Mean Corpuscular Hemoglobin 29.7 pg Normal 27.0-33.0 Mean Corpuscular HGB Conc 30.8 g/dL Low 32.0-36.5 Red Cell Distribution Width 17.9 % High 11.5-14.5 Platelet Count, Automated 175 10 Normal 150-450 Neutrophils % 54.8 % Normal 36.0-66.0 Lymph % 21.0 % Low 24.0-44.0 Linn % 16.9 % High 0.0-5.0 Eos % 4.9 % High 0.0-3.0 Baso % 1.6 % High 0.0-1.0 Immature Granulocyte % 0.8 % Normal 0-3.0 Nucleated Red Blood Cell % 0.0 % Normal 0-0 Neutrophils # 2.8 10 Normal 1.5-8.5 Lymph # 1.1 10 Low 1.5-5.0 Linn # 0.9 10 High 0.0-0.8 Eos # 0.3 10 Normal 0.0-0.5 Baso # 0.1 10 Normal 0.0-0.2 Comprehensive Metabolic Profil 06/04/2020 [facility] (Interface) [phone] Glucose, Fasting 140 mg/dL High 70-100 Blood Urea Nitrogen 28 mg/dL High 7-18 Creatinine For GFR 2.11 mg/dL High 0.70-1.30 Glomerular Filtration Rate 32.8 Low >42 5 Sodium Level 141 mEq/L Normal 136-145 Potassium Serum 4.2 mEq/L Normal 3.5-5.1 Chloride Level 110 mEq/L High 98-107 Carbon Dioxide Level 23 mEq/L Normal 21-32 Anion Gap 8 mEq/L Normal 8-16 Calcium Level 8.9 mg/dL Normal 8.8-10.2 Ast/Sgot 12 U/L Normal 7-37 Alt/SGPT 19 U/L Normal 12-78 Alkaline Phosphatase 63 U/L Normal 45-117 Bilirubin,Total 0.3 mg/dL Normal 0.2-1.0 Total Protein 6.7 GM/DL Normal 6.4-8.2 Albumin 3.0 GM/DL Low 3.2-5.2 Albumin/Globulin Ratio 0.8 Normal Laboratory test finding 06/04/2020 [facility] (Interface) [phone] LDH Lactate Dehydrogenase 178 U/L Normal 87-241 Immunoglobulin G,A,M 06/04/2020 [facility]) [phone] Immunoglobulin A 147.0 mg/dL Normal 70-400 Immunoglobulin G 611 mg/dL Low [phone] Immunoglobulin M 24.4 mg/dL Low 40-230 Serum Protein Electrophoresis 06/04/2020 [facility]) [phone] Albumin % 56.3 % Normal 55.8-66.1 Ebmrf-9-Rbhcjkqy % 6.5 % High 2.9-4.9 Spydo-0-Ektmagjfo % 15.1 % High 7.1-11.8 Cuvl-9-Dhsxfalfy % 6.3 % Normal 4.7-7.2 Dmwk-8-Szapswpzu % 5.4 % Normal 3.2-6.5 Gamma Globulin % 10.4 % Low 11.1-18.8 Albumin 3.49 GM/DL Normal 3.29-5.55 Lpaiv-4-Pvtmyarfx 0.40 GM/DL Normal 0.17-0.41 Mtdkf-5-Cwqlxmiuv 0.94 GM/DL Normal 0.42-0.99 Ofbi-7-Rihutgwap 0.39 GM/DL Normal 0.28-0.60 Tigw-3-Usftctwzl 0.33 GM/DL Normal 0.19-0.55 Gamma Globulins 0.64 GM/DL Low 0.65-1.58 Total Protein 6.2 GM/DL Low 6.4-8.2 Spep Interpretation SEE COMMENT Normal 6 Spep Pathologist Review REV'D BY Whitley STARKEY <SEE NOTE> Normal 7 Laboratory test finding 06/04/2020 [facility] (Interface) [phone] 2 Microglobulin 4.4 mg/L High 0.6-2.4 8 Free Chase & Lambda LT Chains 06/04/2020 [facility]) [phone] Free Chase Light Chains Serum 46.5 mg/L High 3. 3-19.4 Free Lambda Light Chains Serum 26.0 mg/L Normal 5.7-26.3 Chase/Lambda Ratio Serum 1.79 High 0.26-1.65 Free Chase & Lambda LT Chains 05/06/2020 [facility]) [phone] Free Chase Light Chains Serum 51.4 mg/L High 3. 3-19.4 Free Lambda Light Chains Serum 24.8 mg/L Normal 5.7-26.3 Chase/Lambda Ratio Serum 2.07 High 0.26-1.65 9 Immunoglobulin G,A,M 05/06/2020 [facility]) [phone] Immunoglobulin A 184.0 mg/dL Normal 70-400 Immunoglobulin G 681 mg/dL Normal [phone] Immunoglobulin M 25.1 mg/dL Low 40-230 Comprehensive Metabolic Profil 05/06/2020 [facility]) [phone] Glucose, Fasting 149 mg/dL High 70-100 Blood Urea Nitrogen 25 mg/dL High 7-18 Creatinine For GFR 2.16 mg/dL High 0.70-1.30 Glomerular Filtration Rate 32.0 Low >42 1 0 Sodium Level 142 mEq/L Normal 136-145 Potassium Serum 4.5 mEq/L Normal 3.5-5.1 Chloride Level 112 mEq/L High 98-107 Carbon Dioxide Level 22 mEq/L Normal 21-32 Anion Gap 8 mEq/L Normal 8-16 Calcium Level 9.1 mg/dL Normal 8.8-10.2 Ast/Sgot 14 U/L Normal 7-37 Alt/SGPT 21 U/L Normal 12-78 Alkaline Phosphatase 69 U/L Normal 45-117 Bilirubin,Total 0.4 mg/dL Normal 0.2-1.0 Total Protein 6.4 GM/DL Normal 6.4-8.2 Albumin 3.0 GM/DL Low 3.2-5.2 Albumin/Globulin Ratio 0.9 Normal CBC With Differential 05/06/2020 [facility]) [phone] White Blood Count 5.8 10 Normal 4.0-10.0 Red Blood Count 3.79 10 Low 4.30-6.10 Hemoglobin 11.4 g/dL Low 13.5-17.5 Hematocrit 37.3 % Low 42.0-52.0 Mean Corpuscular Volume 98.4 fl High 80.0-96.0 Mean Corpuscular Hemoglobin 30.1 pg Normal 27.0-33.0 Mean Corpuscular HGB Conc 30.6 g/dL Low 32.0-36.5 Red Cell Distribution Width 18.0 % High 11.5-14.5 Platelet Count, Automated 176 10 Normal 150-450 Neutrophils % 56.6 % Normal 36.0-66.0 Lymph % 18.6 % Low 24.0-44.0 Linn % 20.2 % High 0.0-5.0 Eos % 2.2 % Normal 0.0-3.0 Baso % 1.7 % High 0.0-1.0 Immature Granulocyte % 0.7 % Normal 0-3.0 Nucleated Red Blood Cell % 0.0 % Normal 0-0 Neutrophils # 3.3 10 Normal 1.5-8.5 Lymph # 1.1 10 Low 1.5-5.0 Linn # 1.2 10 High 0.0-0.8 Eos # 0.1 10 Normal 0.0-0.5 Baso # 0.1 10 Normal 0.0-0.2 CBC With Differential 04/04/2020 [facility]) [phone] White Blood Count 4.0 10 Normal 4.0-10.0 Red Blood Count 3.35 10 Low 4.30-6.10 Hemoglobin 10.2 g/dL Low 13.5-17.5 Hematocrit 32.4 % Low 42.0-52.0 Mean Corpuscular Volume 96.7 fl High 80.0-96.0 Mean Corpuscular Hemoglobin 30.4 pg Normal 27.0-33.0 Mean Corpuscular HGB Conc 31.5 g/dL Low 32.0-36.5 Red Cell Distribution Width 17.3 % High 11.5-14.5 Platelet Count, Automated 162 10 Normal 150-450 Neutrophils % 44.5 % Normal 36.0-66.0 Lymph % 27.6 % Normal 24.0-44.0 Linn % 21.3 % High 0.0-5.0 Eos % 4.5 % High 0.0-3.0 Baso % 1.8 % High 0.0-1.0 Immature Granulocyte % 0.3 % Normal 0-3.0 Nucleated Red Blood Cell % 0.0 % Normal 0-0 Neutrophils # 1.8 10 Normal 1.5-8.5 Lymph # 1.1 10 Low 1.5-5.0 Linn # 0.9 10 High 0.0-0.8 Eos # 0.2 10 Normal 0.0-0.5 Baso # 0.1 10 Normal 0.0-0.2 Free Chase & Lambda LT Chains 04/04/2020 [facility] (Interface) [phone] Free Chase Light Chains Serum SEE SEPARATE REP < SEE NOTE> Normal 11 Free Lambda Light Chains Serum SEE SEPARATE REP <SEE NOTE> Normal 12 Chase/Lambda Ratio Serum SEE SEPARATE REP <SEE NOTE> Normal 13 Comprehensive Metabolic Profil 04/04/2020 [facility] (Interface) [phone] Glucose, Fasting 124 mg/dL High 70-100 Blood Urea Nitrogen 28 mg/dL High 7-18 Creatinine For GFR 2.06 mg/dL High 0.70-1.30 Glomerular Filtration Rate 33.8 Low >42 1 4 Sodium Level 141 mEq/L Normal 136-145 Potassium Serum 4.6 mEq/L Normal 3.5-5.1 Chloride Level 111 mEq/L High 98-107 Carbon Dioxide Level 24 mEq/L Normal 21-32 Anion Gap 6 mEq/L Low 8-16 Calcium Level 9.0 mg/dL Normal 8.8-10.2 Ast/Sgot 13 U/L Normal 7-37 Alt/SGPT 19 U/L Normal 12-78 Alkaline Phosphatase 69 U/L Normal 45-117 Bilirubin,Total 0.4 mg/dL Normal 0.2-1.0 Total Protein 6.5 GM/DL Normal 6.4-8.2 Albumin 2.9 GM/DL Low 3.2-5.2 Albumin/Globulin Ratio 0.8 Normal Serum Protein Electrophoresis 04/04/2020 [facility] (Interface) [phone] Albumin % 54.8 % Low 55.8-66.1 Plqku-3-Vkglgbzz % 6.5 % High 2.9-4.9 Ciwvn-4-Bwmsqbroc % 15.2 % High 7.1-11.8 Vvdo-1-Etsuktkub % 6.6 % Normal 4.7-7.2 Dfav-1-Vukgjntak % 5.8 % Normal 3.2-6.5 Gamma Globulin % 11.1 % Normal 11.1-18.8 Albumin 3.29 GM/DL Normal 3.29-5.55 Ivnki-5-Ftdnynles 0.39 GM/DL Normal 0.17-0.41 Raxib-5-Leupfbjvg 0.91 GM/DL Normal 0.42-0.99 Hoss-9-Qprlcepxg 0.40 GM/DL Normal 0.28-0.60 Rwlc-1-Xyyettstl 0.35 GM/DL Normal 0.19-0.55 Gamma Globulins 0.67 GM/DL Normal 0.65-1.58 Total Protein 6.0 GM/DL Low 6.4-8.2 Spep Interpretation SEE COMMENT Normal 15 Spep Pathologist Review REV'D BY O ADJAP <SEE NOTE> Normal 16 CBC With Differential 03/07/2020 [facility]) [phone] White Blood Count 4.4 10 Normal 4.0-10.0 Red Blood Count 3.46 10 Low 4.30-6.10 Hemoglobin 10.6 g/dL Low 13.5-17.5 Hematocrit 33.9 % Low 42.0-52.0 Mean Corpuscular Volume 98.0 fl High 80.0-96.0 Mean Corpuscular Hemoglobin 30.6 pg Normal 27.0-33.0 Mean Corpuscular HGB Conc 31.3 g/dL Low 32.0-36.5 Red Cell Distribution Width 17.5 % High 11.5-14.5 Platelet Count, Automated 149 10 Low 150-450 Neutrophils % 58.9 % Normal 36.0-66.0 Lymph % 24.1 % Normal 24.0-44.0 Linn % 13.7 % High 0.0-5.0 Eos % 2.0 % Normal 0.0-3.0 Baso % 1.1 % High 0.0-1.0 Immature Granulocyte % 0.2 % Normal 0-3.0 Nucleated Red Blood Cell % 0.0 % Normal 0-0 Neutrophils # 2.6 10 Normal 1.5-8.5 Lymph # 1.1 10 Low 1.5-5.0 Linn # 0.6 10 Normal 0.0-0.8 Eos # 0.1 10 Normal 0.0-0.5 Baso # 0.1 10 Normal 0.0-0.2 Comprehensive Metabolic Profil 03/07/2020 [facility]) [phone] Glucose, Fasting 148 mg/dL High 70-100 Blood Urea Nitrogen 23 mg/dL High 7-18 Creatinine For GFR 1.88 mg/dL High 0.70-1.30 Glomerular Filtration Rate 37.6 Low >42 1 7 Sodium Level 142 mEq/L Normal 136-145 Potassium Serum 4.4 mEq/L Normal 3.5-5.1 Chloride Level 112 mEq/L High 98-107 Carbon Dioxide Level 22 mEq/L Normal 21-32 Anion Gap 8 mEq/L Normal 8-16 Calcium Level 8.7 mg/dL Low 8.8-10.2 Ast/Sgot 9 U/L Normal 7-37 Alt/SGPT 18 U/L Normal 12-78 Alkaline Phosphatase 82 U/L Normal 45-117 Bilirubin,Total 0.3 mg/dL Normal 0.2-1.0 Total Protein 6.3 GM/DL Low 6.4-8.2 Albumin 2.9 GM/DL Low 3.2-5.2 Albumin/Globulin Ratio 0.9 Normal Free Chase & Lambda LT Chains 03/07/2020 [facility] (Interface) [phone] Free Chase Light Chains Serum 26.9 mg/L High 3. 3-19.4 Free Lambda Light Chains Serum 16.3 mg/L Normal 5.7-26.3 Chase/Lambda Ratio Serum 1.65 Normal 0.26-1.65 18 Serum Protein Electrophoresis 03/07/2020 [facility] (Interface) [phone] Albumin % 56.2 % Normal 55.8-66.1 Smllp-0-Snvyxtbx % 6.9 % High 2.9-4.9 Ywgbw-2-Rnstwtkeu % 16.9 % High 7.1-11.8 Wvti-3-Girrnexip % 6.2 % Normal 4.7-7.2 Giwa-2-Outvjpicp % 5.5 % Normal 3.2-6.5 Gamma Globulin % 8.3 % Low 11.1-18.8 Albumin 3.20 GM/DL Low 3.29-5.55 Yzsym-4-Kbnomnaae 0.39 GM/DL Normal 0.17-0.41 Rfmgv-2-Xhdofzmtp 0.96 GM/DL Normal 0.42-0.99 Fqdm-2-Aksyauwhz 0.35 GM/DL Normal 0.28-0.60 Kavk-9-Jngosakrd 0.31 GM/DL Normal 0.19-0.55 Gamma Globulins 0.47 GM/DL Low 0.65-1.58 Total Protein 5.7 GM/DL Low 6.4-8.2 Spep Interpretation SEE COMMENT Normal 19 Spep Pathologist Review REV'D BY Whitley STARKEY <SEE NOTE> Normal 20 CBC With Differential 02/22/2020 [facility]) [phone] White Blood Count 5.8 10 Normal 4.0-10.0 Red Blood Count 3.42 10 Low 4.30-6.10 Hemoglobin 10.6 g/dL Low 13.5-17.5 Hematocrit 34.0 % Low 42.0-52.0 Mean Corpuscular Volume 99.4 fl High 80.0-96.0 Mean Corpuscular Hemoglobin 31.0 pg Normal 27.0-33.0 Mean Corpuscular HGB Conc 31.2 g/dL Low 32.0-36.5 Red Cell Distribution Width 16.8 % High 11.5-14.5 Platelet Count, Automated 139 10 Low 150-450 Neutrophils % 64.6 % Normal 36.0-66.0 Lymph % 14.8 % Low 24.0-44.0 Linn % 17.9 % High 0.0-5.0 Eos % 2.1 % Normal 0.0-3.0 Baso % 0.3 % Normal 0.0-1.0 Immature Granulocyte % 0.3 % Normal 0-3.0 Nucleated Red Blood Cell % 0.0 % Normal 0-0 Neutrophils # 3.8 10 Normal 1.5-8.5 Lymph # 0.9 10 Low 1.5-5.0 Linn # 1.0 10 High 0.0-0.8 Eos # 0.1 10 Normal 0.0-0.5 Baso # 0.0 10 Normal 0.0-0.2 Comprehensive Metabolic Profil 02/22/2020 [facility] (Interface) [phone] Glucose, Fasting 186 mg/dL High 70-100 Blood Urea Nitrogen 27 mg/dL High 7-18 Creatinine For GFR 2.01 mg/dL High 0.70-1.30 Glomerular Filtration Rate 34.8 Low >42 2 1 Sodium Level 141 mEq/L Normal 136-145 Potassium Serum 4.3 mEq/L Normal 3.5-5.1 Chloride Level 110 mEq/L High 98-107 Carbon Dioxide Level 23 mEq/L Normal 21-32 Anion Gap 8 mEq/L Normal 8-16 Calcium Level 8.7 mg/dL Low 8.8-10.2 Ast/Sgot 11 U/L Normal 7-37 Alt/SGPT 19 U/L Normal 12-78 Alkaline Phosphatase 74 U/L Normal 45-117 Bilirubin,Total 0.4 mg/dL Normal 0.2-1.0 Total Protein 6.2 GM/DL Low 6.4-8.2 Albumin 2.7 GM/DL Low 3.2-5.2 Albumin/Globulin Ratio 0.8 Normal CBC With Differential 02/09/2020 [facility]) [phone] White Blood Count 5.5 10 Normal 4.0-10.0 Red Blood Count 3.49 10 Low 4.30-6.10 Hemoglobin 10.9 g/dL Low 13.5-17.5 Hematocrit 34.7 % Low 42.0-52.0 Mean Corpuscular Volume 99.4 fl High 80.0-96.0 Mean Corpuscular Hemoglobin 31.2 pg Normal 27.0-33.0 Mean Corpuscular HGB Conc 31.4 g/dL Low 32.0-36.5 Red Cell Distribution Width 17.2 % High 11.5-14.5 Platelet Count, Automated 169 10 Normal 150-450 Neutrophils % 71.3 % High 36.0-66.0 Lymph % 16.8 % Low 24.0-44.0 Linn % 9.6 % High 0.0-5.0 Eos % 1.3 % Normal 0.0-3.0 Baso % 0.5 % Normal 0.0-1.0 Immature Granulocyte % 0.5 % Normal 0-3.0 Nucleated Red Blood Cell % 0.0 % Normal 0-0 Neutrophils # 4.0 10 Normal 1.5-8.5 Lymph # 0.9 10 Low 1.5-5.0 Linn # 0.5 10 Normal 0.0-0.8 Eos # 0.1 10 Normal 0.0-0.5 Baso # 0.0 10 Normal 0.0-0.2 Comprehensive Metabolic Profil 02/09/2020 [facility]) [phone] Glucose, Fasting 106 mg/dL High 70-100 Blood Urea Nitrogen 34 mg/dL High 7-18 Creatinine For GFR 2.16 mg/dL High 0.70-1.30 Glomerular Filtration Rate 32.1 Low >42 2 2 Sodium Level 141 mEq/L Normal 136-145 Potassium Serum 4.6 mEq/L Normal 3.5-5.1 Chloride Level 111 mEq/L High 98-107 Carbon Dioxide Level 23 mEq/L Normal 21-32 Anion Gap 7 mEq/L Low 8-16 Calcium Level 8.8 mg/dL Normal 8.8-10.2 Ast/Sgot 12 U/L Normal 7-37 Alt/SGPT 16 U/L Normal 12-78 Alkaline Phosphatase 62 U/L Normal 45-117 Bilirubin,Total 0.2 mg/dL Normal 0.2-1.0 Total Protein 6.4 GM/DL Normal 6.4-8.2 Albumin 2.9 GM/DL Low 3.2-5.2 Albumin/Globulin Ratio 0.8 Normal 1 Units are mL/min/1.73 m2 Chronic Kidney Disease Staging per NKF: Stage I & II GFR >=60 Normal to Mildly Decreased Stage III GFR 30-59 Moderately Decreased Stage IV GFR 15-29 Severely Decreased Stage V GFR <15 Very Little GFR Left ESRD GFR <15 on BODY MECHANIC 2 NO MONOCLONAL BANDS NOTED. 3 NO M-SPIKE(S)NOTED. 4 Performed at: [address] [id number] [employer]: Mercedes Giron MD, Phone: [phone] Units are mL/min/1.73 m2 Chronic Kidney Disease Staging per NKF: Stage I & II GFR >=60 Normal to Mildly Decreased Stage III GFR 30-59 Moderately Decreased Stage IV GFR 15-29 Severely Decreased Stage V GFR <15 Very Little GFR Left ESRD GFR <15 on BODY MECHANIC 6 HYPOGAMMAGLOBULINEMIA. [facility] SERUM AND URINE IMMUNOTYPING. 7 REV'D BY Whitley FARNSWORTH 8 Siemens Immulite 2000 Immuno chemiluminometric assay (ICMA) . Values obtained with different assay methods or kits cannot be used interchangeably. Results cannot be interpreted as absolute evidence of the presence or absence of malignant disease. Performed at: [address] [id number] [employer]: Mercedes Giron MD, Phone: [phone] Performed at: [address] [id number] [employer] En[employer] Mixer: Dario Pisano MD, Phone: [phone] Performed at: [address] [id number] [employer]er: Mercedes Giron MD, Phone: [phone] Units are mL/min/1.73 m2 Chronic Kidney Disease Staging per NKF: Stage I & II GFR >=60 Normal to Mildly Decreased Stage III GFR 30-59 Moderately Decreased Stage IV GFR 15-29 Severely Decreased Stage V GFR <15 Very Little GFR Left ESRD GFR <15 on BODY MECHANIC 11 SEE SEPARATE REPORT Testing performed at reference lab . Report copy to follow on a separate form. 05/12/20 REF LAB#:[id number] 12 SEE SEPARATE REPORT 13 SEE SEPARATE REPORT 14 Units are mL/min/1.73 m2 Chronic Kidney Disease Staging per NKF: Stage I & II GFR >=60 Normal to Mildly Decreased Stage III GFR 30-59 Moderately Decreased Stage IV GFR 15-29 Severely Decreased Stage V GFR <15 Very Little GFR Left ESRD GFR <15 on BODY MECHANIC 15 M-SPIKE NOTED IN [place] REGION. CONCENTRATION = 0.12 GM/DL 16 REV'D BY Annika HERNÁNDEZ 17 Units are mL/min/1.73 m2 Chronic Kidney Disease Staging per NKF: Stage I & II GFR >=60 Normal to Mildly Decreased Stage III GFR 30-59 Moderately Decreased Stage IV GFR 15-29 Severely Decreased Stage V GFR <15 Very Little GFR Left ESRD GFR <15 on BODY MECHANIC 18 Performed at: [facility] [address] [id number] Glass Enamel Mixer: Mercedes Giron MD, Phone: [phone] 19 M-SPIKE NOTED IN [place] REGION. CONCENTRATION = 0.11 GM/DL 20 REV'D BY Whitley FARNSWORTH 21 Units are mL/min/1.73 m2 Chronic Kidney Disease Staging per NKF: Stage I & II GFR >=60 Normal to Mildly Decreased Stage III GFR 30-59 Moderately Decreased Stage IV GFR 15-29 Severely Decreased Stage V GFR <15 Very Little GFR Left ESRD GFR <15 on BODY MECHANIC 22 Units are mL/min/1.73 m2 Chronic Kidney Disease Staging per NKF: Stage I & II GFR >=60 Normal to Mildly Decreased Stage III GFR 30-59 Moderately Decreased Stage IV GFR 15-29 Severely Decreased Stage V GFR <15 Very Little GFR Left ESRD GFR <15 on BODY MECHANIC Procedures Description No Information Available Medical Devices Description No Information Available Encounters Type Date Location Provider Dx Diagnosis Office Visit 07/25/2020 1:15p [place] [facility] Clarissa Restrepo, FAAFP E78.5 Hyperlipidemia, unspecified N18.30 Chronic kidney disease, stag e 3 unspecified E79.0 Hyperuricemia w/o signs of i nflam arthrit and tophaceous dis G31.84 Mild cognitive impairment, s o stated F32.89 Other specified depressive e pisodes Office Visit 04/16/2020 1:45p [place] [facility] Leia Restrepo, FAAFP E78.5 Hyperlipidemia, unspecified N18.3 Chronic kidney disease, stag e 3 (moderate) F32.89 Other specified depressive e pisodes E79.0 Hyperuricemia w/o signs of i nflam arthrit and tophaceous dis R60.0 Localized edema Assessments Date Code Description Provider 07/25/2020 E78.5 Hyperlipidemia, unspecified Suresh Mina D.O., FAAFP 07/25/2020 N18.30 Chronic kidney disease, stage 3 unspecified Sylvester Mina D.O., FAAFP 07/25/2020 E79.0 Hyperuricemia without signs of i nflammatory arthritis and to Sylvester Mina D.O., FAAFP 07/25/2020 G31.84 Mild cognitive impairment, so st ated Sylvester Mina D.O., FAAFP 07/25/2020 F32.89 Other specified depressive episo waldo Sylvester Mina D.O., FAAFP 05/29/2020 Z23 Encounter for immunization Doc Mina D.O., FAAFP 05/29/2020 Z23 Encounter for immunization Nurse s Schedule 04/16/2020 E78.5 Hyperlipidemia, unspecified Suresh Mina D.O., FAAFP 04/16/2020 N18.3 Chronic kidney disease, stage 3 (moderate) Sylvester Mina D.O., FAAFP 04/16/2020 F32.89 Other specified depressive episo waldo Sylvester Mina D.O., FAAFP 04/16/2020 E79.0 Hyperuricemia without signs of i nflammatory arthritis and to Sylvester iMna D.O., DENZEL 04/16/2020 R60.0 Localized edema Sylvester Mina D.O., DENZEL Plan of Treatment Future Appointment(s):* 10/24/2020 2:00 pm - Sylvester Mina D.O., DENZEL at [facility] Functional Status Description No Information Available Mental Status Description No Information Available Referrals Description No Information Available
--- OUTSIDE RECORDS SUMMARY | 2020-09-09 15:33 | CCD | Continuity of Care Document ---
Author Author Camilo LOBATO MD Organization Unknown Address [address] [place] [address], [place] [address] Phone [phone] Care Team Providers Care Dog Groomer Name Role Phone Sylvester Mina AUTM [phone] Afia Diaz MD AUTM [phone] Hernandez Luque MD AUTM [phone] Gonzales Adams MD AUTM [phone] Problems Active Problems Provider Date Essential hypertension Daniel Lobato MD Onset: 7 Preoperative cardiovascular examination Daniel Lobato MD Onset: 03/23/2017 First degree atrioventricular block Daniel Lobato MD Ons et: 03/23/2017 Right bundle branch block AND left anterior fascicular block Daniel Lobato MD Onset: 03/23/2017 Overweight Daniel Lobato MD Onset: 03/23/2017 Dietary management surveillance Daniel Lobato MD Onset: 03/23/2017 Complete atrioventricular block NICOLASA Lucas Onset: 12/03/2017 Cardiac pacemaker in situ NICOLASA Lucas Onset: 2017 Paroxysmal atrial fibrillation NICOLASA Lucas Onset: 0 12/31/2017 Carotid artery occlusion NICOLASA Lucas Onset: 018 Social History Type Date Description Comments Sex Unknown ETOH Use Does not consume alcohol Tobacco Use Start: Unknown End: Unknown Patient is a former smoker started smoking at age 15, quit in 2001. Smoked about 2-3ppd. Smoking Status Reviewed: 03/29/20 Patient is a former smoker st arted smoking at age 15, quit in 2001. Smoked about 2-3ppd. Exercise Type/Frequency Ambulatory & radha f-care, unable to carry out any work activities Exercise Limitations Back Pain Exercise Limitations Shortness Of Breath Allergies, Adverse Reactions, Alerts Active Allergies Reaction Severity Comments Date NSAIDS 03/23/2017 Medications Active Medications SIG Qnty Indications Ordering Provide r Date Zoloft 100mg Tablets 1 by mouth every day Sylvester Mina, DO 08/27/2019 Aspirin Adult Low Strength 81mg Tablets DR 1 by mouth every day Sylvester Mina, DO Breo Ellipta 200-25mcg/Inh Aerosol 1 puff daily as directed Sylvester Mina, DO 08/27/2019 Ventolin HFA 108(90Base) mcg/Act A erosol 2 puffs as needed Sylvester Mina, DO 08/27/2019 Pyridostigmine [place] 60mg Tablet s 1/2 by mouth every 8 hours Unknown 02/19/2019 Magnesium Oxide -MG Supplement 400mg Capsules 1 by mouth twice a day Unknown 02/19 Potassium Chloride Rosalina ER 10Meq Tablets ER 1 by mouth twice a day Unknown 02/19 Sodium Bicarbonate 325mg Tablets 1 by mouth twice a day Unknown 02/19/2019 Atorvastatin Calcium 20mg Tablets 1 by mouth every night at bedtime 90tabs Eddie Barraza 07/08/2018 Allopurinol 300mg Tablets 1 by mouth every day Unknown 12/30/2017 Vitamin D-3 1000Unit Capsules 1 by mouth every day Unknown 12/02/2017 Acyclovir 400mg Tablets 1 by mouth twice daily Unknown 12/02/2017 Famotidine 20mg Tablets 1 by mouth once a day Unknown 12/02/2017 Acetaminophen Extra Strength 500mg Capsules Unknown 03/22/2017 Immunizations Description No Information Available Vital Signs Date Vital Result Comment 03/29/2020 3:07pm Weight 252.00 lb Height 76 inches 6'4" BMI (Body Mass Index) 30.7 kg/m2 BP Systolic Sitting 122 mmHg BP Diastolic Sitting 70 mmHg 08/28/2019 10:10am Weight 228.00 lb Height 76 inches 6'4" BMI (Body Mass Index) 27.8 kg/m2 Heart Rate 66 /min BP Systolic Sitting 108 mmHg large cuff, Ra BP Diastolic Sitting 60 mmHg large cuff, Ra Results Description No Information Available Procedures Date Code Description Status 06/07/2020 93754 Remote Pacemaker/Cardio-Defibril lator Data Acquistion Completed 06/07/2020 16120 Remote Interrogation Device Eval Pacemaker System Up To 90 Days Completed 03/29/2020 61369 ECG 12-Lead Completed 03/08/2020 34102 Pacer Interrogation Any Leads Co mpleted Medical Devices Description No Information Available Encounters Type Date Location Provider Dx Diagnosis Office Visit 05/22/2020 8:09a Main Office Daniel Lobato MD I10 Essential (primary) hypertension I48.0 Paroxysmal atrial fibrillati on E66.3 Overweight Office Visit 04/12/2020 2:47p Main Office Daniel Lobato MD I10 Essential (primary) hypertension I48.0 Paroxysmal atrial fibrillati on E66.3 Overweight Office Visit 03/29/2020 3:00p Main Office NICOLASA Lucas Z95.0 Presence of cardiac pacemaker I10 Essential (primary) hyperten morena I48.0 Paroxysmal atrial fibrillati on I65.23 Occlusion and stenosis of bi lateral carotid arteries I38 Endocarditis, valve unspecif ied E66.3 Overweight Z71.3 Dietary counseling and surve illance Office Visit 03/05/2020 10:26a Main Office Daniel Lobato MD I10 Essential (primary) hypertension I48.0 Paroxysmal atrial fibrillati on E66.3 Overweight I65.23 Occlusion and stenosis of bi lateral carotid arteries Office Visit 02/07/2020 7:25a Main Office Daniel Lobato MD I10 Essential (primary) hypertension I48.0 Paroxysmal atrial fibrillati on E66.3 Overweight Z95.0 Presence of cardiac pacemake r Office Visit 01/08/2020 8:42a Main Office Daniel Lobato MD Z95.0 Presence of cardiac pacemaker I10 Essential (primary) hyperten morean I48.0 Paroxysmal atrial fibrillati on E66.3 Overweight Assessments Date Code Description Provider 06/07/2020 Z95.0 Presence of cardiac pacemaker [facility] 05/22/2020 I10 Essential (primary) hypertension Daniel Lobato MD 05/22/2020 I48.0 Paroxysmal atrial fibrillation D ritesh Lobato MD 05/22/2020 E66.3 Overweight Daniel Lobato MD 04/12/2020 I10 Essential (primary) hypertension Daniel Lobato MD 04/12/2020 I48.0 Paroxysmal atrial fibrillation D ritesh Lobato MD 04/12/2020 E66.3 Overweight Daniel Lobato MD 03/29/2020 Z95.0 Presence of cardiac pacemaker NICOLASA Zimmerman 03/29/2020 I10 Essential (primary) hypertension NICOLASA Lucas 03/29/2020 I48.0 Paroxysmal atrial fibrillation A NICOLASA Yost 03/29/2020 I65.23 Occlusion and stenosis of bilate ral carotid arteries NICOLASA Lucas 03/29/2020 I38 Endocarditis, valve unspecified NICOLASA Lucas 03/29/2020 E66.3 Overweight NICOLASA Lucas 03/29/2020 Z71.3 Dietary counseling and surveilla nce NICOLASA Lucas 03/08/2020 Z95.0 Presence of cardiac pacemaker NICOLASA Zimmerman 03/05/2020 I10 Essential (primary) hypertension Daniel Lobato MD 03/05/2020 I48.0 Paroxysmal atrial fibrillation D ritesh Lobato MD 03/05/2020 E66.3 Overweight Daniel Lobato MD 03/05/2020 I65.23 Occlusion and stenosis of bilate ral carotid arteries Daniel Lobato MD 02/07/2020 I10 Essential (primary) hypertension Daniel Lobato MD 02/07/2020 I48.0 Paroxysmal atrial fibrillation D ritesh Lobato MD 02/07/2020 E66.3 Overweight Daniel Lobato MD 02/07/2020 Z95.0 Presence of cardiac pacemaker Ryan Lobato MD 01/08/2020 Z95.0 Presence of cardiac pacemaker Ryan Lobato MD 01/08/2020 I10 Essential (primary) hypertension Daniel Lobato MD 01/08/2020 I48.0 Paroxysmal atrial fibrillation D ritesh Lobato MD 01/08/2020 E66.3 Overweight Daniel Lobato MD Plan of Treatment Future Appointment(s):* 09/06/2020 7:00 am - Pacer[facility]cd [facility] at Main Office * 10/01/2020 9:15 am - NICOLASA Lucas at Main Office * 03/10/2021 9:45 am - NICOLASA Lucas at Main Office 03/29/2020 - NICOLASA Lucas* Z95.0 Presence of cardiac pacemaker * I10 Essential (primary) hypertension* Recommendations:* No medication changes were made today. * I48.0 Paroxysmal atrial fibrillation* Recommendations:* Please call the office if you have any sustained episodes of tachycardia (heart rate above 110 bpm at rest) or palpitations. * I65.23 Occlusion and stenosis of bilateral carotid arteries* New Xrays:* US Duplex Doppler Carotid Arteries Bilateral, Scheduled: 03/29/20 * Recommendations:* Please notify us immediately with any TIA/stroke like symptoms. Continue statin and aspirin. Please obtain carotid ultrasound. * I38 Endocarditis, valve unspecified* Recommendations:* No further workup required at this time. * E66.3 Overweight * Z71.3 Dietary counseling and surveillance* Recommendations:* Recommend adopting a more whole foods, plant-based diet in addition to moderate exercise a minimum of 30 minutes 6 days a week. In order to optimize cardiovascular health please be conscious of processed foods, alcohol (no more than two dr inks a day for men and one drink a day for women), salt (<2000 mg/d), oils, saturated fat/animal products, and highly refined carbohydrates such as breads, pastas, and sweets. * All * Follow up:* Follow up in 6 months. Functional Status Functional Condition Comment Date Status Independent with bathing Active Independent with dressing Active Independent with feeding Active Independent with grooming Active Independent with toileting Activ e Requires assistance with ambulating uses walker or wheelchair Active Requires assistance with standing Active Mental Status Description No Information Available Referrals Description No Information Available
--- OUTSIDE RECORDS SUMMARY | 2020-09-09 15:33 | CCD | Continuity of Care Document ---
Author Author Camilo LOBATO MD Organization Unknown Address [address] [place] [address], [place] [address] Phone [phone] Care Team Providers Care Repossession Agent Name Role Phone Sylvester Mina AUTM [phone] Afia Diaz MD AUTM [phone] Hernandez Luque MD AUTM [phone] Gonzales Adams MD AUTM [phone] Problems Active Problems Provider Date Essential hypertension [...] as needed Sylvester Mina, DO 08/27/2019 Pyridostigmine [place] 60mg Tablet s 1/2 by mouth every [...] Available Procedures Date Code Description Status 06/07/2020 50870 Remote Pacemaker/Cardio-Defibril lator Data Acquistion Completed 06/07/2020 07091 Remote Interrogation Device Eval Pacemaker System Up To 90 Days Completed 03/29/2020 18326 ECG 12-Lead Completed 03/08/2020 97343 Pacer Interrogation Any Leads Co mpleted Medical Devices Description No Information Available Encounters Type Date Location Provider Dx Diagnosis Office Visit 06/13/2020 9:06a Main Office Daniel Lobato MD I10 Essential (primary) hypertension I48.0 Paroxysmal atrial fibrillati on E66.3 Overweight Office Visit 05/22/2020 8:09a Main Office Daniel [...] Overweight Z95.0 Presence of cardiac pacemake r Assessments Date Code Description Provider 06/13/2020 I10 Essential (primary) hypertension Daniel Lobato MD 06/13/2020 I48.0 Paroxysmal atrial fibrillation D ritesh Lobato MD 06/13/2020 E66.3 Overweight Daniel Lobato MD 06/07/2020 Z95.0 Presence of cardiac pacemaker Pa [...] MD 02/07/2020 Z95.0 Presence of cardiac pacemaker Da karli Lobato MD Plan of Treatment Future Appointment(s):* [...] Occlusion and stenosis of bilateral carotid arteries* Recommendations: * Please notify us immediately with any TIA/stroke [...]
--- OUTSIDE RECORDS SUMMARY | 2020-09-09 15:34 | CCD ---
Author Author [facility] Organization [facility] Address Unknown Phone Unavailable Care Team Providers [employer] Founder Name Role Phone ANTECOL, Fercho SZYMANSKI MD Unavailable Unavailable ANTECOL, Fercho SZYMANSKI MD Unavailable Unavailable ANTECOLFercho MD Unavailable Unavailable ANTECOLFercho MD Unavailable Unavailable ANTECOLFercho MD Unavailable Unavailable ANTECOLFercho MD Unavailable Unavailable ANTECOLFercho MD Unavailable Unavailable ANTECOLFercho MD Unavailable Unavailable ANTECOLFercho MD Unavailable Unavailable ANTECOLFercho MD Unavailable Unavailable ANTECOLFercho MD Unavailable Unavailable ANTECOLFercho MD Unavailable Unavailable ANTECOLFercho MD Unavailable Unavailable ANTECOLFercho MD Unavailable Unavailable ANTECOLFercho MD Unavailable Unavailable ANTECOLFercho MD Unavailable Unavailable ANTECOLFercho MD Unavailable Unavailable ANTECOLFercho MD Unavailable Unavailable ANTECOLFercho MD Unavailable Unavailable ANTECOLFercho MD Unavailable Unavailable ANTECOLFercho MD Unavailable Unavailable ANTECOLFercho MD Unavailable Unavailable ANTECOLFercho MD Unavailable Unavailable ANTECOLFercho MD Unavailable Unavailable ANTECOLFercho MD Unavailable Unavailable ANTECOLFercho MD Unavailable Unavailable ANTECOL, Fercho SZYMANSKI MD Unavailable Unavailable ANTECOL, Fercho SZYMANSKI MD Unavailable Unavailable ANTECOL, Fercho SZYMANSKI MD Unavailable Unavailable ANTECOL, Fercho SZYMANSKI MD Unavailable Unavailable ANTECOL, Fercho SZYMANSKI MD Unavailable Unavailable ANTECOL, Fercho SZYMANSKI MD Unavailable Unavailable ANTECOL, Fercho SZYMANSKI MD Unavailable Unavailable ANTECOL, Fercho SZYMANSKI MD Unavailable Unavailable ANTECOL, Fercho SZYMANSKI MD Unavailable Unavailable ANTECOL, Fercho SZYMANSKI MD Unavailable Unavailable ANTECOL, Fercho SZYMANSKI MD Unavailable Unavailable ANTECOL, Fercho SZYMANSKI MD Unavailable Unavailable ANTECOL, Fercho SZYMANSKI MD Unavailable Unavailable ANTECOL, Fercho SZYMANSKI MD Unavailable Unavailable ANTECOL, Fercho SZYMANSKI MD Unavailable Unavailable ANTECOL, Fercho SZYMANSKI MD Unavailable Unavailable ANTECOL, Fercho SZYMANSKI MD Unavailable Unavailable ANTECOL, Fercho SZYMANSKI MD Unavailable Unavailable ANTECOL, Fercho SZYMANSKI MD Unavailable Unavailable ANTECOL, Fercho SZYMANSKI MD Unavailable Unavailable ANTECOL, Fercho SZYMANSKI MD Unavailable Unavailable ANTECOL, Fercho SZYMANSKI MD Unavailable Unavailable ANTECOL, Fercho SZYMANSKI MD Unavailable Unavailable ANTECOL, Fercho SZYMANSKI MD Unavailable Unavailable ANTECOL, Fercho SZYMANSKI MD Unavailable Unavailable ANTECOL, Fercho SZYMANSKI MD Unavailable Unavailable ANTECOL, Fercho SZYMANSKI MD Unavailable Unavailable ANTECOL, Fercho SZYMANSKI MD Unavailable Unavailable ANTECOL, Fercho SZYMANSKI MD Unavailable Unavailable Fish, J Sylvester Unavailable Unavailable Fish, J Sylvester Unavailable Unavailable Fish, J Sylvester Unavailable Unavailable Fish, J Sylvester Unavailable Unavailable Fish, J Sylvester Unavailable Unavailable Fish, J Sylvester Unavailable Unavailable Fish, J Sylvester Unavailable Unavailable Fish, J Sylvester Unavailable Unavailable Fish, J Sylvester Unavailable Unavailable Fish, J Sylvester Unavailable Unavailable Fish, J Sylvester Unavailable Unavailable Fish, J Sylvester Unavailable Unavailable Fish, J Sylvester Unavailable Unavailable Fish, J Sylvester Unavailable Unavailable Fish, J Sylvester Unavailable Unavailable Fish, J Sylvester Unavailable Unavailable Fish, J Sylvester Unavailable Unavailable Fish, J Sylvester Unavailable Unavailable Fish, J Sylvester Unavailable Unavailable Fish, J Sylvester Unavailable Unavailable Fish, J Sylvester Unavailable Unavailable Fish, J Sylvester Unavailable Unavailable Fish, J Sylvester Unavailable Unavailable Fish, J Sylvester Unavailable Unavailable Fish, J Sylvester Unavailable Unavailable Fish, J Sylvester Unavailable Unavailable Fish, J Sylvester Unavailable Unavailable Fish, J Sylvester Unavailable Unavailable Fish, J Sylvester Unavailable Unavailable Fish, J Sylvester Unavailable Unavailable Fish, J Sylvester Unavailable Unavailable Fish, J Sylvester Unavailable Unavailable Fish, J Sylvester Unavailable Unavailable Fish, J Sylvester Unavailable Unavailable Fish, J Sylvester Unavailable Unavailable Fish, J Sylvester Unavailable Unavailable Fish, J Sylvester Unavailable Unavailable Fish, J Sylvester Unavailable Unavailable Fish, J Sylvester Unavailable Unavailable Fish, J Sylvester Unavailable Unavailable Fish, J Sylvester Unavailable Unavailable Fish, J Sylvester Unavailable Unavailable Fish, J Sylvester Unavailable Unavailable Fish, J Sylvester Unavailable Unavailable Fish, J Sylvester Unavailable Unavailable Fish, J Sylvester Unavailable Unavailable Fish, J Sylvester Unavailable Unavailable Fish, J Sylvester Unavailable Unavailable Fish, J Sylvester Unavailable Unavailable Fish, J Sylvester Unavailable Unavailable Fish, J Sylvester Unavailable Unavailable Fish, J Sylvester Unavailable Unavailable Fish, J Sylvester Unavailable Unavailable Fish, J Sylvester Unavailable Unavailable Fish, J Sylvester Unavailable Unavailable Fish, J Sylvester Unavailable Unavailable Fish, J Sylvester Unavailable Unavailable Fish, J Sylvester Unavailable Unavailable Fish, J Sylvester Unavailable Unavailable Fish, J Sylvester Unavailable Unavailable Fish, J Sylvester Unavailable Unavailable Fish, J Sylvester Unavailable Unavailable Fish, J Sylvester Unavailable Unavailable Fish, J Sylvester Unavailable Unavailable Fish, J Sylvester Unavailable Unavailable Fish, J Sylvester Unavailable Unavailable Fish, J Sylvester Unavailable Unavailable Fish, J Sylvester Unavailable Unavailable Fish, J Sylvester Unavailable Unavailable Fish, J Sylvester Unavailable Unavailable Fish, J Sylvester Unavailable Unavailable Fish, J Sylvester Unavailable Unavailable Fish, J Sylvester Unavailable Unavailable Fish, J Sylvester Unavailable Unavailable Fish, J Sylvester Unavailable Unavailable Fish, J Sylvester Unavailable Unavailable Fish, J Sylvester Unavailable Unavailable Fish, J Sylvester Unavailable Unavailable Fish, J Sylvester Unavailable Unavailable Fish, J Sylvester Unavailable Unavailable Fish, J Sylvester Unavailable Unavailable Fish, J Sylvester Unavailable Unavailable Fish, J Sylvester Unavailable Unavailable Fish, J Sylvester Unavailable Unavailable Fish, J Sylvester Unavailable Unavailable Serafin Tam Josephine PA Unavailable Unavailable Serafin Tam Josephine PA Unavailable Unavailable Serafin Tam Josephine PA Unavailable Unavailable Serafin Tam Josephine PA Unavailable Unavailable Serafin Tam Josephine PA Unavailable Unavailable Serafin Tam Josephine PA Unavailable Unavailable Serafin Tam Josephine PA Unavailable Unavailable Serafin Tam Josephine PA Unavailable Unavailable Serafin Tam Josephine PA Unavailable Unavailable Serafin Tam Josephine PA Unavailable Unavailable Yonatan, L Josephine PA Unavailable Unavailable Yonatan, L Josephine PA Unavailable Unavailable Yonatan, L Josephine PA Unavailable Unavailable Yonatan, L Josephine PA Unavailable Unavailable Yonatan, L Josephine PA Unavailable Unavailable Yonatan, L Josephine PA Unavailable Unavailable Yonatan, L Josephine PA Unavailable Unavailable Yonatan, L Josephine PA Unavailable Unavailable Yonatan, L Josephine PA Unavailable Unavailable Yonatan, L Josephine PA Unavailable Unavailable Yonatan, L Josephine PA Unavailable Unavailable Yonatan, L Josephine PA Unavailable Unavailable Yonatan, L Josephine PA Unavailable Unavailable Fish, J Sylvester Unavailable Unavailable Fish, J Sylvester Unavailable Unavailable Fish, J Sylvester Unavailable Unavailable Fish, J Sylvester Unavailable Unavailable Fish, J Sylvester Unavailable Unavailable Fish, J Sylvester Unavailable Unavailable Fish, J Sylvester Unavailable Unavailable Fish, J Sylvester Unavailable Unavailable Fish, J Sylvester Unavailable Unavailable Fish, J Sylvester Unavailable Unavailable Fish, J Sylvester Unavailable Unavailable Fish, J Sylvester Unavailable Unavailable Fish, J Sylvester Unavailable Unavailable Fish, J Sylvester Unavailable Unavailable Fish, J Sylvester Unavailable Unavailable Fish, J Sylvester Unavailable Unavailable Fish, J Sylvester Unavailable Unavailable Fish, J Sylvester Unavailable Unavailable Fish, J Sylvester Unavailable Unavailable Fish, J Sylvester Unavailable Unavailable Fish, J Sylvester Unavailable Unavailable Fish, J Sylvester Unavailable Unavailable Fish, J Sylvester Unavailable Unavailable Fish, J Sylvester Unavailable Unavailable Fish, J Sylvester Unavailable Unavailable Fish, J Sylvester Unavailable Unavailable Fish, J Sylvester Unavailable Unavailable Fish, J Sylvester Unavailable Unavailable Fish, J Sylvester Unavailable Unavailable Fish, J Sylvester Unavailable Unavailable Fish, J Sylvester Unavailable Unavailable Fish, J Sylvester Unavailable Unavailable Fish, J Sylvester Unavailable Unavailable Fish, J Sylvester Unavailable Unavailable Fish, J Sylvester Unavailable Unavailable Fish, J Sylvester Unavailable Unavailable Fish, J Sylvester Unavailable Unavailable Fish, J Sylvester Unavailable Unavailable Fish, J Sylvester Unavailable Unavailable Fish, J Sylvester Unavailable Unavailable Fish, J Sylvester Unavailable Unavailable Fish, J Sylvester Unavailable Unavailable Fish, J Sylvester Unavailable Unavailable Fish, J Sylvester Unavailable Unavailable Fish, J Sylvester Unavailable Unavailable Fish, J Sylvester Unavailable Unavailable Fish, J Sylvester Unavailable Unavailable Fish, J Sylvester Unavailable Unavailable Fish, J Sylvester Unavailable Unavailable Fish, J Sylvester Unavailable Unavailable Fish, J Sylvetser Unavailable Unavailable Fish, J Sylvester Unavailable Unavailable Fish, J Sylvester Unavailable Unavailable Fish, J Sylvester Unavailable Unavailable Fish, J Sylvester Unavailable Unavailable Fish, J Sylvester Unavailable Unavailable Fish, J Sylvester Unavailable Unavailable Fish, J Sylvester Unavailable Unavailable Fish, J Sylvester Unavailable Unavailable Fish, J Sylvester Unavailable Unavailable Fish, J Sylvester Unavailable Unavailable Fish, J Sylvester Unavailable Unavailable Fish, J Sylvester Unavailable Unavailable Fish, J Sylvester Unavailable Unavailable Fish, J Sylvester Unavailable Unavailable Fish, J Sylvester Unavailable Unavailable Fish, J Sylvester Unavailable Unavailable Fish, J Sylvester Unavailable Unavailable Fish, J Sylvester Unavailable Unavailable Fish, J Sylvester Unavailable Unavailable Fish, J Sylvester Unavailable Unavailable Fish, J Sylvester Unavailable Unavailable Fish, J Sylvester Unavailable Unavailable Fish, J Sylvester Unavailable Unavailable Fish, J Sylvester Unavailable Unavailable Fish, J Sylvester Unavailable Unavailable Fish, J Sylvester Unavailable Unavailable Fish, J Sylvester Unavailable Unavailable Fish, J Sylvester Unavailable Unavailable Fish, J Sylvester Unavailable Unavailable Fish, J Sylvester Unavailable Unavailable Fish, J Sylvester Unavailable Unavailable Fish, J Sylvester Unavailable Unavailable Fish, J Sylvester Unavailable Unavailable Fish, J Sylvester Unavailable Unavailable Re-disclosure Warning The records that you are about to access may contain information from federally-assisted alcohol or drug abuse programs. If such information is present, then the following federally mandated warning applies: This information has been disclosed to you from records protected by federal confidentiality rules (42 CFR part 2). The federal rules prohibit you from making any further disclosure of this information unless further disclosure is expressly permitted by the written consent of the person to whom it pertains or as otherwise permitted by 42 CFR part 2. A general authorization for the release of medical or other information is NOT sufficient for this purpose. The Federal rules restrict any use of the information to criminally investigate or prosecute any alcohol or drug abuse patient.The records that you are about to access may contain highly sensitive health information, the redisclosure of which is protected by Article 27-F of the [facility] Public Health law. If you continue you may have access to information: Regarding HIV / AIDS; Provided by facilities licensed or operated by the [facility] Office of Mental Health; or Provided by the [facility] Office for People With Developmental Disabilities. If such information is present, then the following [facility] mandated warning applies: This information has been disclosed to you from confidential records which are protected by state law. State law prohibits you from making any further disclosure of this information without the specific written consent of the person to whom it pertains, or as otherwise permitted by law. Any unauthorized further disclosure in violation of state law may result in a fine or long term sentence or both. A general authorization for the release of medical or other information is NOT sufficient authorization for further disc losure. Family History Family Member Name Family Member Gender Family Member Status Date o f Status Description Data Source(s) Unknown Male Problem [facility] ([facility]) Unknown Male Problem [facility] Unknown Unknown [facility] Unknown Female Problem [facility] ([facility] Unknown Female Problem [facility] ([facility] Unknown Female Problem [facility] ([facility] Encounters Encounter Providers Location Date Indications Data Source(s ) Outpatient Attender: Sylvester Mina [place] Office 07/25/2020 12:15:0 0 PM EST [facility] ([facility] Office Visit Attender: NESSA DINH MD Main Office 06/13/2020 09: 06:00 AM EDT [facility] ([facility]) Office Visit Attender: NESSA DINH MD Main Office 05/22/2020 08: 09:00 AM EDT [facility] ([facility]) Outpatient Attender: Sylvester Mina [place] Office 04/16/2020 01:45:0 0 PM EDT [facility] ([facility] Office Visit Attender: NESSA DINH MD Main Office 04/12/2020 02: 47:00 PM EDT [facility] ([facility]) Outpatient Attender: Josephine BALDWIN Main Office 03/29/2020 03:00:0 0 PM EDT [facility] ([facility]) Office Visit Attender: NESSA DINH MD Main Office 03/05/2020 10: 26:00 AM EDT [facility] ([facility]) Office Visit Attender: NESSA DINH MD Main Office 02/07/2020 07: 25:00 AM EDT [facility] ([facility]) Office Visit Attender: NESSA DINH MD Main Office 01/08/2020 08: 42:00 AM EDT [facility] ([facility]) Outpatient Referrer: Sylvester Leopoldo 08/31/2019 11:19:00 AM E [facility] Outpatient Referrer: Sylvester Leopoldo 08/28/2019 07:18:00 PM E [facility] Outpatient Attender: Josephine BALDWIN Main Office 08/28/2019 09:15:0 0 AM EST [facility] ([facility]) Immunizations Vaccine Date Status Description Data Source(s) New in 2012. IIV4 05/29/2020 11:40:00 AM EDT completed [facility] ([facility] Medications Medication Brand Name Start Date Product Form Dose Route Admi nistrative Instructions Pharmacy Instructions Status Indications Reaction Description Data Source(s) atorvastatin 20 MG Oral Tablet ATORVASTATIN CALCIUM 08/12/2020 1 2:00:00 AM EST tablet 90 TAKE ONE TABLET BY MOUTH EVERY D AY TAKE ONE TABLET BY MOUTH EVERY DAY SOLD: 08/14/2020 [facility] Acyclovir 400 MG Oral Tablet ACYCLOVIR 08/05/2020 12:00:00 AM EST tabl et 60 TAKE ONE TABLET BY MOUTH TWICE A DAY TAKE ONE TABLET BY MOUTH TWICE A DAY SOLD: 09/05/2020 [facility] Acyclovir 400 MG Oral Tablet ACYCLOVIR 08/05/2020 12:00:00 AM EST tabl et 60 TAKE ONE TABLET BY MOUTH TWICE A DAY TAKE ONE TABLET BY MOUTH TWICE A DAY SOLD: 08/09/2020 [facility] Potassium Chloride 10 MEQ Extended Release Oral Tablet POTAS SIUM CHLORIDE 08/02/2020 12:00:00 AM EST tablet extended release 90 TAKE ONE TABLET BY MOUTH EVERY DAY TAKE ONE TABLET BY MOUTH EVERY DAY SOLD: 08/03/2020 [facility] 650 mg 07/15/2020 12:00:00 AM EST tablet 60 TAKE 1/2 TABLET BY MOUTH TWO TIMES A DAY TAKE 1/2 TABLET BY MOUTH TWO TIMES A DAY SOLD: 07/16/2020 [facility] Acyclovir 400 MG Oral Tablet ACYCLOVIR 07/08/2020 12:00:00 AM EST tabl et 60 TAKE ONE TABLET BY MOUTH TWICE A DAY TAKE ONE TABLET BY MOUTH TWICE A DAY SOLD: 07/11/2020 [facility] 300 mg 07/03/2020 12:00:00 AM EST tablet 30 TAKE ONE TABLET BY MOUTH EVERY DAY TAKE ONE TABLET BY MOUTH EVERY DAY SOLD: 08/27/2020 [facility] 300 mg 07/03/2020 12:00:00 AM EST tablet 30 TAKE ONE TABLET BY MOUTH EVERY DAY TAKE ONE TABLET BY MOUTH EVERY DAY SOLD: 07/05/2020 [facility] 300 mg 07/03/2020 12:00:00 AM EST tablet 30 TAKE ONE TABLET BY MOUTH EVERY DAY TAKE ONE TABLET BY MOUTH EVERY DAY SOLD: 08/01/2020 [facility] Acyclovir 400 MG Oral Tablet ACYCLOVIR 06/02/2020 12:00:00 AM EDT tabl et 60 TAKE ONE TABLET BY MOUTH TWICE A DAY TAKE ONE TABLET BY MOUTH TWICE A DAY SOLD: 06/04/2020 [facility] 50 mg 05/13/2020 12:00:00 AM EDT tablet 30 TAKE ONE TABLET BY MOUTH EVERY DAY TAKE ONE TABLET BY MOUTH EVERY DAY SOLD: 05/15/2020 [facility] 50 mg 05/13/2020 12:00:00 AM EDT tablet 30 TAKE ONE TABLET BY MOUTH EVERY DAY TAKE ONE TABLET BY MOUTH EVERY DAY SOLD: 06/18/2020 [facility] 50 mg 05/13/2020 12:00:00 AM EDT tablet 30 TAKE ONE TABLET BY MOUTH EVERY DAY TAKE ONE TABLET BY MOUTH EVERY DAY SOLD: 08/14/2020 [facility] atorvastatin 20 MG Oral Tablet ATORVASTATIN CALCIUM 05/13/2020 1 2:00:00 AM EDT tablet 90 TAKE ONE TABLET BY MOUTH EVERY D AY TAKE ONE TABLET BY MOUTH EVERY DAY SOLD: 05/15/2020 [facility] 50 mg 05/13/2020 12:00:00 AM EDT tablet 30 TAKE ONE TABLET BY MOUTH EVERY DAY TAKE ONE TABLET BY MOUTH EVERY DAY SOLD: 07/16/2020 [facility] 200-25 mcg/dose 05/07/2020 12:00:00 AM EDT blister with josiah ce 60 INHALE ONE PUFF BY MOUTH EVERY DAY INHALE ONE PUFF BY MOUTH EVERY DAY SOLD: 07/01/2020 [facility] 200-25 mcg/dose 05/07/2020 12:00:00 AM EDT blister with josiah ce 60 INHALE ONE PUFF BY MOUTH EVERY DAY INHALE ONE PUFF BY MOUTH EVERY DAY SOLD: 05/08/2020 [facility] Acyclovir 400 MG Oral Tablet ACYCLOVIR 05/06/2020 12:00:00 AM EDT tabl et 60 TAKE ONE TABLET BY MOUTH TWICE A DAY TAKE ONE TABLET BY MOUTH TWICE A DAY SOLD: 05/08/2020 [facility] Wheelchair 04/23/2020 12:00:00 AM EDT active [facility] ([facility] 20 mg 04/20/2020 12:00:00 AM EDT tablet 90 TAKE ONE TABLET BY MOUTH EVERY DAY TAKE ONE TABLET BY MOUTH EVERY DAY SOLD: 07/25/2020 [facility] 20 mg 04/20/2020 12:00:00 AM EDT tablet 90 TAKE ONE TABLET BY MOUTH EVERY DAY TAKE ONE TABLET BY MOUTH EVERY DAY SOLD: 04/22/2020 [facility] Acyclovir 400 MG Oral Tablet ACYCLOVIR 04/08/2020 12:00:00 AM EDT tabl et 60 TAKE ONE TABLET BY MOUTH TWICE A DAY TAKE ONE TABLET BY MOUTH TWICE A DAY SOLD: 04/09/2020 [facility] 20 mg 04/04/2020 12:00:00 AM EDT tablet 30 TAKE ONE TABLET BY MOUTH EVERY DAY NEEDED TAKE ONE TABLET BY MOUTH EVERY DAY NEEDED SOLD: 04/05/2020 [facility] Potassium Chloride 10 MEQ Extended Release Oral Tablet POTAS SIUM CHLORIDE 03/04/2020 12:00:00 AM EDT tablet extended release 60 TAKE ONE TABLET BY MOUTH TWICE A DAY TAKE ONE TABLET BY MOUTH TWICE A DAY SOLD: 04/29/2020 [facility] Potassium Chloride 10 MEQ Extended Release Oral Tablet POTAS SIUM CHLORIDE 03/04/2020 12:00:00 AM EDT tablet extended release 60 TAKE ONE TABLET BY MOUTH TWICE A DAY TAKE ONE TABLET BY MOUTH TWICE A DAY SOLD: 03/06/2020 [facility] Potassium Chloride 10 MEQ Extended Release Oral Tablet POTAS SIUM CHLORIDE 03/04/2020 12:00:00 AM EDT tablet extended release 60 TAKE ONE TABLET BY MOUTH TWICE A DAY TAKE ONE TABLET BY MOUTH TWICE A DAY SOLD: 06/04/2020 [facility] Potassium Chloride 10 MEQ Extended Release Oral Tablet POTAS SIUM CHLORIDE 03/04/2020 12:00:00 AM EDT tablet extended release 60 TAKE ONE TABLET BY MOUTH TWICE A DAY TAKE ONE TABLET BY MOUTH TWICE A DAY SOLD: 04/03/2020 [facility] 300 mg 02/26/2020 12:00:00 AM EDT tablet 30 TAKE ONE TABLET BY MOUTH EVERY DAY TAKE ONE TABLET BY MOUTH EVERY DAY SOLD: 04/29/2020 [facility] 300 mg 02/26/2020 12:00:00 AM EDT tablet 30 TAKE ONE TABLET BY MOUTH EVERY DAY TAKE ONE TABLET BY MOUTH EVERY DAY SOLD: 05/29/2020 [facility] 300 mg 02/26/2020 12:00:00 AM EDT tablet 30 TAKE ONE TABLET BY MOUTH EVERY DAY TAKE ONE TABLET BY MOUTH EVERY DAY SOLD: 04/03/2020 [facility] 300 mg 02/26/2020 12:00:00 AM EDT tablet 30 TAKE ONE TABLET BY MOUTH EVERY DAY TAKE ONE TABLET BY MOUTH EVERY DAY SOLD: 02/28/2020 [facility] 50 mg 02/19/2020 12:00:00 AM EDT tablet 30 TAKE ONE TABLET BY MOUTH EVERY DAY TAKE ONE TABLET BY MOUTH EVERY DAY SOLD: 04/16/2020 [facility] 60 mg 02/19/2020 12:00:00 AM EDT tablet 135 TAKE ONE-HALF TABLET BY MOUTH THREE TIMES A DAY TAKE ONE-HALF TABLET BY MOUTH THREE TIMES A DAY SOLD: 02/20/2020 [facility] 50 mg 02/19/2020 12:00:00 AM EDT tablet 30 TAKE ONE TABLET BY MOUTH EVERY DAY TAKE ONE TABLET BY MOUTH EVERY DAY SOLD: 03/19/2020 [facility] 60 mg 02/19/2020 12:00:00 AM EDT tablet 135 TAKE ONE-HALF TABLET BY MOUTH THREE TIMES A DAY TAKE ONE-HALF TABLET BY MOUTH THREE TIMES A DAY SOLD: 05/15/2020 [facility] 50 mg 02/19/2020 12:00:00 AM EDT tablet 30 TAKE ONE TABLET BY MOUTH EVERY DAY TAKE ONE TABLET BY MOUTH EVERY DAY SOLD: 02/20/2020 [facility] 60 mg 02/19/2020 12:00:00 AM EDT tablet 135 TAKE ONE-HALF TABLET BY MOUTH THREE TIMES A DAY TAKE ONE-HALF TABLET BY MOUTH THREE TIMES A DAY SOLD: 08/14/2020 [facility] Sertraline 50 MG Oral Tablet Sertraline HCL 02/19/2020 12:00:00 AM EDT ORAL active [facility] ([facility] atorvastatin 20 MG Oral Tablet ATORVASTATIN CALCIUM 02/12/2020 1 2:00:00 AM EDT tablet 90 TAKE ONE TABLET BY MOUTH EVERY D AY TAKE ONE TABLET BY MOUTH EVERY DAY SOLD: 02/14/2020 [facility] Acyclovir 400 MG Oral Tablet ACYCLOVIR 12/04/2019 12:00:00 AM EDT tabl et 60 TAKE ONE TABLET BY MOUTH TWICE A DAY TAKE ONE TABLET BY MOUTH TWICE A DAY SOLD: 03/06/2020 [facility] 400 mg 12/04/2019 12:00:00 AM EDT tablet 60 TAKE ONE TABLET BY MOUTH TWICE A DAY TAKE ONE TABLET BY MOUTH TWICE A DAY SOLD: 01/10/2020 [facility] 400 mg 12/04/2019 12:00:00 AM EDT tablet 60 TAKE ONE TABLET BY MOUTH TWICE A DAY TAKE ONE TABLET BY MOUTH TWICE A DAY SOLD: 12/06/2019 [facility] 400 mg 12/04/2019 12:00:00 AM EDT tablet 60 TAKE ONE TABLET BY MOUTH TWICE A DAY TAKE ONE TABLET BY MOUTH TWICE A DAY SOLD: 02/09/2020 [facility] 60 mg 11/20/2019 12:00:00 AM EDT tablet 135 TAKE 1 & 1/2 TABLETS BY MOUTH THREE TIMES A DAY TAKE 1 & 1/2 TABLETS BY MOUTH THREE TIMES A DAY SOLD: 11/23/2019 [facility] 650 mg 11/13/2019 12:00:00 AM EDT tablet 60 TAKE 1/2 TABLET BY MOUTH TWO TIMES A DAY TAKE 1/2 TABLET BY MOUTH TWO TIMES A DAY SOLD: 03/19/2020 [facility] 650 mg 11/13/2019 12:00:00 AM EDT tablet 60 TAKE 1/2 TABLET BY MOUTH TWO TIMES A DAY TAKE 1/2 TABLET BY MOUTH TWO TIMES A DAY SOLD: 01/17/2020 [facility] 650 mg 11/13/2019 12:00:00 AM EDT tablet 60 TAKE 1/2 TABLET BY MOUTH TWO TIMES A DAY TAKE 1/2 TABLET BY MOUTH TWO TIMES A DAY SOLD: 05/15/2020 [facility] 650 mg 11/13/2019 12:00:00 AM EDT tablet 60 TAKE 1/2 TABLET BY MOUTH TWO TIMES A DAY TAKE 1/2 TABLET BY MOUTH TWO TIMES A DAY SOLD: 11/15/2019 [facility] atorvastatin 20 MG Oral Tablet ATORVASTATIN CALCIUM 11/12/2019 1 2:00:00 AM EDT tablet 90 TAKE ONE TABLET BY MOUTH EVERY D AY TAKE ONE TABLET BY MOUTH EVERY DAY SOLD: 11/15/2019 [facility] 10 mEq 11/06/2019 12:00:00 AM EDT tablet extended release 60 TAKE ONE TABLET BY MOUTH TWICE A DAY TAKE ONE TABLET BY MOUTH TWICE A DAY SOLD: 01/01/2020 [facility] Potassium Chloride 10 MEQ Extended Release Oral Tablet POTAS SIUM CHLORIDE 11/06/2019 12:00:00 AM EDT tablet extended release 60 TAKE ONE TABLET BY MOUTH TWICE A DAY TAKE ONE TABLET BY MOUTH TWICE A DAY SOLD: 01/30/2020 [facility] [facility] 300 mg 11/06/2019 12:00:00 AM EDT tablet 30 TAKE ONE TABLET BY MOUTH EVERY DAY TAKE ONE TABLET BY MOUTH EVERY DAY SOLD: 11/06/2019 [facility] 10 mEq 11/06/2019 12:00:00 AM EDT tablet extended release 60 TAKE ONE TABLET BY MOUTH TWICE A DAY TAKE ONE TABLET BY MOUTH TWICE A DAY SOLD: 12/06/2019 [facility] 300 mg 11/06/2019 12:00:00 AM EDT tablet 30 TAKE ONE TABLET BY MOUTH EVERY DAY TAKE ONE TABLET BY MOUTH EVERY DAY SOLD: 12/06/2019 [facility] 300 mg 11/06/2019 12:00:00 AM EDT tablet 30 TAKE ONE TABLET BY MOUTH EVERY DAY TAKE ONE TABLET BY MOUTH EVERY DAY SOLD: 01/30/2020 [facility] 300 mg 11/06/2019 12:00:00 AM EDT tablet 30 TAKE ONE TABLET BY MOUTH EVERY DAY TAKE ONE TABLET BY MOUTH EVERY DAY SOLD: 01/01/2020 [facility] 10 mEq 11/06/2019 12:00:00 AM EDT tablet extended release 60 TAKE ONE TABLET BY MOUTH TWICE A DAY TAKE ONE TABLET BY MOUTH TWICE A DAY SOLD: 11/06/2019 [facility] Famotidine 20 MG Oral Tablet FAMOTIDINE 10/23/2019 12:00:00 AM EST tab let 90 TAKE ONE TABLET BY MOUTH EVERY DAY TAKE ONE TABLET BY MOUTH EVERY DAY SOLD: 10/24/2019 [facility] Famotidine 20 MG Oral Tablet FAMOTIDINE 10/23/2019 12:00:00 AM EST tab let 90 TAKE ONE TABLET BY MOUTH EVERY DAY TAKE ONE TABLET BY MOUTH EVERY DAY SOLD: 01/25/2020 [facility] 650 mg 10/19/2019 12:00:00 AM EST tablet 30 TAKE ONE-HALF TABLET BY MOUTH TWICE A DAY TAKE ONE-HALF TABLET BY MOUTH TWICE A DAY SOLD: 10/24/2019 [facility] 50 mg 10/07/2019 12:00:00 AM EST tablet 30 TAKE ONE TABLET BY MOUTH EVERY DAY TAKE ONE TABLET BY MOUTH EVERY DAY SOLD: 10/11/2019 [facility] 50 mg 10/07/2019 12:00:00 AM EST tablet 30 TAKE ONE TABLET BY MOUTH EVERY DAY TAKE ONE TABLET BY MOUTH EVERY DAY SOLD: 12/13/2019 [facility] 50 mg 10/07/2019 12:00:00 AM EST tablet 30 TAKE ONE TABLET BY MOUTH EVERY DAY TAKE ONE TABLET BY MOUTH EVERY DAY SOLD: 11/15/2019 [facility] 50 mg 10/07/2019 12:00:00 AM EST tablet 30 TAKE ONE TABLET BY MOUTH EVERY DAY TAKE ONE TABLET BY MOUTH EVERY DAY SOLD: 01/20/2020 [facility] 30 ACTUAT fluticasone furoate 0.2 MG/ACT UAT / vilanterol 0.025 MG/ACTUAT Dry Powder Inhaler [Breo] Breo Ellipta 08/27/2019 12:00:00 AM EST RESPIRATORY active [facility] ([facility] 200 ACTUAT Albuterol 0.09 MG/ACTUAT Metered Dose Inhal er [Ventolin] Ventolin HFA 08/27/2019 12:00:00 AM EST RESPIRATORY active [facility] ([facility]) Aspirin 81 MG Delayed Release Oral Tablet Aspirin Adult Low Strength 08/27/2019 12:00:00 AM EST ORAL active M [facility]ENT ([facility]) lenalidomide 5 MG Oral Capsule [Revlimid] Revlimid 08/27/2019 1 2:00:00 AM EST ORAL completed [facility] ([facility]) Sertraline 100 MG Oral Tablet [Zoloft] Zoloft 08/27/2019 12:00:00 AM EST ORAL active [facility] ([facility]) atorvastatin 20 MG Oral Tablet ATORVASTATIN CALCIUM 08/15/2019 1 2:00:00 AM EST tablet 90 TAKE ONE TABLET BY MOUTH EVERY D AY TAKE ONE TABLET BY MOUTH EVERY DAY SOLD: 08/18/2019 [facility] 400 mg 08/11/2019 12:00:00 AM EST tablet 60 TAKE ONE TABLET BY MOUTH TWICE A DAY TAKE ONE TABLET BY MOUTH TWICE A DAY SOLD: 09/11/2019 [facility] 400 mg 08/11/2019 12:00:00 AM EST tablet 60 TAKE ONE TABLET BY MOUTH TWICE A DAY TAKE ONE TABLET BY MOUTH TWICE A DAY SOLD: 08/12/2019 [facility] 400 mg 08/11/2019 12:00:00 AM EST tablet 60 TAKE ONE TABLET BY MOUTH TWICE A DAY TAKE ONE TABLET BY MOUTH TWICE A DAY SOLD: 11/06/2019 [facility] 400 mg 08/11/2019 12:00:00 AM EST tablet 60 TAKE ONE TABLET BY MOUTH TWICE A DAY TAKE ONE TABLET BY MOUTH TWICE A DAY SOLD: 10/11/2019 [facility] 0.4 mg 08/09/2019 12:00:00 AM EST capsule 90 TAKE ONE CAPSULE BY MOUTH AT BEDTIME TAKE ONE CAPSULE BY MOUTH AT BEDTIME SOLD: 08/11/2019 [facility] 300 mg 08/02/2019 12:00:00 AM EST tablet 30 TAKE ONE TABLET BY MOUTH EVERY DAY TAKE ONE TABLET BY MOUTH EVERY DAY SOLD: 09/07/2019 [facility] 300 mg 08/02/2019 12:00:00 AM EST tablet 30 TAKE ONE TABLET BY MOUTH EVERY DAY TAKE ONE TABLET BY MOUTH EVERY DAY SOLD: 09/30/2019 [facility] 300 mg 08/02/2019 12:00:00 AM EST tablet 30 TAKE ONE TABLET BY MOUTH EVERY DAY TAKE ONE TABLET BY MOUTH EVERY DAY SOLD: 08/03/2019 [facility] 10 mEq 08/02/2019 12:00:00 AM EST tablet extended release 60 TAKE ONE TABLET BY MOUTH TWICE A DAY TAKE ONE TABLET BY MOUTH TWICE A DAY SOLD: 08/03/2019 [facility] 10 mEq 08/02/2019 12:00:00 AM EST tablet extended release 60 TAKE ONE TABLET BY MOUTH TWICE A DAY TAKE ONE TABLET BY MOUTH TWICE A DAY SOLD: 09/30/2019 [facility] 10 mEq 08/02/2019 12:00:00 AM EST tablet extended release 60 TAKE ONE TABLET BY MOUTH TWICE A DAY TAKE ONE TABLET BY MOUTH TWICE A DAY SOLD: 09/07/2019 [facility] 325 mg 07/17/2019 12:00:00 AM EST tablet 180 TAKE ONE TABLET BY MOUTH TWICE A DAY TAKE ONE TABLET BY MOUTH TWICE A DAY SOLD: 07/18/2019 [facility] 100 mg 07/11/2019 12:00:00 AM EST tablet 90 TAKE ONE TABLET BY MOUTH EVERY DAY TAKE ONE TABLET BY MOUTH EVERY DAY SOLD: 07/13/2019 [facility] 60 mg 05/22/2019 12:00:00 AM EDT tablet 135 TAKE ONE-HALF TABLET BY MOUTH THREE TIMES A DAY TAKE ONE-HALF TABLET BY MOUTH THREE TIMES A DAY SOLD: 08/29/2019 [facility] Famotidine 20 MG Oral Tablet FAMOTIDINE 04/25/2019 12:00:00 AM EDT tab let 90 TAKE ONE TABLET BY MOUTH EVERY DAY TAKE ONE TABLET BY MOUTH EVERY DAY SOLD: 07/25/2019 [facility] 400 mg (241.3 mg magnesium) 04/18/2019 12:00:00 AM EDT table t 180 TAKE ONE TABLET BY MOUTH TWICE A DAY TAKE ONE TABLET BY MOUTH TWICE A DAY SOLD: 07/18/2019 [facility] 400 mg 04/04/2019 12:00:00 AM EDT tablet 60 TAKE ONE TABLET BY MOUTH TWICE A DAY TAKE ONE TABLET BY MOUTH TWICE A DAY SOLD: 07/13/2019 [facility] 200-25 mcg/dose 03/29/2019 12:00:00 AM EDT blister with josiah ce 60 INHALE ONE PUFF BY MOUTH EVERY DAY INHALE ONE PUFF BY MOUTH EVERY DAY SOLD: 10/27/2019 [facility] 200-25 mcg/dose 03/29/2019 12:00:00 AM EDT blister with josiah ce 60 INHALE ONE PUFF BY MOUTH EVERY DAY INHALE ONE PUFF BY MOUTH EVERY DAY SOLD: 07/13/2019 [facility] 200-25 mcg/dose 03/29/2019 12:00:00 AM EDT blister with josiah ce 60 INHALE ONE PUFF BY MOUTH EVERY DAY INHALE ONE PUFF BY MOUTH EVERY DAY SOLD: 08/29/2019 [facility] 200-25 mcg/dose 03/29/2019 12:00:00 AM EDT blister with josiah ce 60 INHALE ONE PUFF BY MOUTH EVERY DAY INHALE ONE PUFF BY MOUTH EVERY DAY SOLD: 12/13/2019 [facility] Insurance Providers Payer name Policy type / Coverage type Policy ID Covered constitution party ID Covered constitution party's relationship to spears Policy Spears Plan Information R [facility] [id number] SP [id number] MEDICARE [id number] SP [id number] R O [id number] S [id number] MEDICARE C [id number] S [id number] [employer] [place] Other 0 Self 0 Medicare Part B [facility] Other 0 Se lf 0 r Commercial [id number] Self [id number] Medicare Medicare Primary [id number] Self [id number] Umr Commercial [id number] Self [id number] Medicare Medicare Primary [id number] Self [id number] MEDICARE [id number] SP [id number] UMR [facility] [id number] SP [id number] R [facility] [id number] SP [id number] ANSI-Commercial [id number] ANSI-Commercial [id number] ANSI-Medicare Part B [id number] Commercial [id number] 00 Self [id number] Medicare Medicare Primary [id number] Self [id number] Commercial [id number] Self [id number] Medicare Medicare Primary [id number] Self [id number] ANSI-Commercial [id number] ANSI-Medicare Part B [id number] ANSI-Commercial [id number] ANSI-Medicare Part B [id number] ANSI-Commercial [id number] ANSI-Commercial [id number] ANSI-Commercial [id number] ANSI-Commercial [id number] ANSI-Medicare Part B [id number] [facility] Part B [id number] Self [id number] Medicare (Part B) Medicare Primary [id number] Self [id number] [facility] [id number] Self [id number] ANSI-Commercial [id number] ANSI-Medicare Part B [id number] ANSI-Commercial [id number] [facility] [id number] SP [id number] MEDICARE [id number] SP [id number] UMR [facility] CARE [id number] SP [id number] UMR [facility] CARE [id number] SP [id number] Umr Medigap Part B [id number] Self [id number] Medicare (Part B) Medicare Primary [id number] Self [id number] Umr Medigap Part B [id number] Self [id number] Medicare (Part B) Medicare Primary [id number] Self [id number] UMR [facility] CARE [id number] SP [id number] UMR/[facility] [id number] SP [id number] Umr Commercial [id number] 00 Self [id number] 00 Medicare Medicare Primary [id number] Self [id number] UMR [facility] CARE [id number] SP [id number] MEDICARE [id number] SP [id number] A Umr Commercial [id number] 00 Self [id number] 00 Medicare Medicare Primary [id number] Family Dependent [id number] [facility] [id number] SP [id number] UMR U [id number] Self [id number] MEDICARE A [id number] Self [id number] A Umr (pr) Medigap Part B [id number] Self [id number] [place] (pr) Medigap Part B [id number] Self [id number] [place] Primary [id number] Self [id number] [employer] Medigap Part B [id number] Self [id number] Medicare Medicare Primary [id number] Family Dependent [id number] Medicare (Part B) Medicare Primary [id number] Self [id number] [facility] PH[facility] Ppo Medigap Part B [id number] Self [id number] [facility] U [id number] Self [id number] [facility] [id number] SP [id number] Medicare (Part B) Medicare Primary [id number] Self [id number] MEDICARE C [id number] S [id number] A [facility] PPO O [id number] S [id number] Medicare (Part B) Medicare Primary [id number] Self [id number] [place] (pr) Medigap Part B [id number] Self [id number] [place] Primary [id number] Self [id number] [facility] PPO O [id number] S [id number] [place] Medigap Part B [id number] Self [id number] Medicare [facility] Medicare Primary [id number] Self [id number] [employer]ior [employer] [place] Medigap Part B [id number] Self [id number] Medicare Medicare Primary [id number] Family Dependent [id number] [place] Medigap Part B [id number] Self [id number] Medicare [facility] Medicare Primary [id number] Self [id number] [place] MEDICARE PART B C [id number] S [id number] S [facility] C [id number] S [id number] Medicare (Part B) Medicare Primary [id number] Self [id number] [place] Medigap Part B [id number] Self [id number] Medicare [facility] Medicare Primary [id number] Self [id number] [employer] [place] Medigap Part B [id number] Self [id number] Medicare Medicare Primary [id number] Family Dependent [id number] [place] Medigap Part B [id number] Self [id number] Medicare [facility] Medicare Primary [id number] Self [id number] [employer] [place] Medigap Part B [id number] Self [id number] Medicare Medicare Primary [id number] Family Dependent [id number] [employer] [place] Medigap Part B [id number] Self [id number] Medicare Medicare Primary [id number] Family Dependent [id number] [place] Medigap Part B [id number] Self [id number] Medicare [facility] Medicare Primary [id number] Self [id number] MEDICARE PART A -O/P [id number] 18 [id number] [facility]-O/P [id number] 18 [id number] [employer] Medigap Part B [id number] Self [id number] Medicare Medicare Primary [id number] Family Dependent [id number] [employer] [place] Medigap Part B [id number] Self [id number] Medicare Medicare Primary [id number] Family Dependent [id number] MEDICARE -O/P [id number] 18 [id number] MEDICARE C [id number] S [id number] A [facility] U [id number] Self [id number] [facility] U [id number] Self [id number] [facility] [id number] SP [id number] Marc[employer]. 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 LEAD PM 06/07 12:00:00 AM EDT [facility] ([facility]) INTERROGATION REMOTE </90 D EMU FARMER REVIEW 06/07/20 12:00:00 AM EDT [facility] ([facility]) ECG ROUTINE ECG W/LEAST 12 LDS W/I&R 03/29/2020 12:00: 00 AM EDT [facility] ([facility]) INTERROGATION EVAL IN PERSON 1/DUAL/SENIOR QUALITY ASSURANCE ENGINEER LEAD PM 2019 12:00:00 AM EDT [facility] ([facility]) INTERROGATION EVAL REMOTE </90 D 1/2/SENIOR QUALITY ASSURANCE ENGINEER LEAD PM 10/29 12:00:00 AM EDT [facility] ([facility]) INTERROGATION REMOTE </90 D EMU FARMER REVIEW 10/30/19 12:00:00 AM EDT [facility] ([facility]) ECG ROUTINE ECG W/LEAST 12 LDS W/I&R 08/28/2019 12:00: 00 AM EST [facility] ([facility]) INTERROGATION EVAL REMOTE </90 D 1/2/SENIOR QUALITY ASSURANCE ENGINEER LEAD PM 07/28 12:00:00 AM EST [facility] ([facility]) INTERROGATION REMOTE </90 D EMU FARMER REVIEW 07/28/20 12:00:00 AM EST [facility] ([facility]) Results ID Date Data Source [id number] 07/02/2020 09:29:00 AM EST [facility] Name Value Range Interpretation Code Description Data Tyesha rce(s) Supporting Document(s) Free [place] Light Chains Serum 51.6 mg/L 3.3-19.4 Above high normal [facility] ([facility] [place]/Lambda Ratio Serum 2.11 0.26-1.65 Above high normal [facility] ([facility] Performed at: RN - [facility] [place] [id number] [employer] Mechanic: Mercedes Giron MD, Phone: [phone] Free [place] Light Chains Serum 24.5 mg/L 5.7-26.3 N ormal (applies to non-numeric results) [facility] ([facility] ) ID Date Data Source [id number] 07/02/2020 09:29:00 AM EST [facility] ([facility] Name Value Range Interpretation Code Description Data Tyesha rce(s) Supporting Document(s) Albumin % 55.6 % 55.8-66.1 Below low normal [facility] ( [facility] Viphv-9-Veizxiksv % 15.3 % 7.1-11.8 Above high normal [facility] ([facility] Smkcf-9-Ibnnxwwe % 6.1 % 2.9-4.9 Above high normal [facility] ([facility] Xape-9-Jneqouaxu % 5.8 % 3.2-6.5 Normal (applies to non-numer ic results) [facility] ([facility] Gamma Globulin % 10.8 % 11.1-18.8 Below low normal ME [facility] ([facility] Jppa-0-Jvuwveyzo % 6.4 % 4.7-7.2 Normal (applies to non-numer ic results) [facility] ([facility] Albumin 3.34 GM/DL 3.29-5.55 Normal (applies to non-numeric resul ts) [facility] ([facility] Iaufr-7-Zwvpywvgi 0.37 GM/DL 0.17-0.41 Normal (applies to non- numeric results) [facility] ([facility] Wicmy-8-Jwnrelbyr 0.92 GM/DL 0.42-0.99 Normal (applies to non- numeric results) [facility] ([facility] Lcir-7-Pgzzbpjss 0.38 GM/DL 0.28-0.60 Normal (applies to non-numeric results) [facility] ([facility] Hhsx-8-Ncvzyjvil 0.35 GM/DL 0.19-0.55 Normal (applies to non-numeric results) [facility] ([facility] Gamma Globulins 0.65 GM/DL 0.65-1.58 Normal (applies to non-numeric results) [facility] ([facility] Total Protein 6.0 GM/DL 6.4-8.2 Below low normal MED[facility] T ([facility] Spep Interpretation Laboratory test result Sahra l (applies to non-numeric results) [facility] ([facility] NO M-SPIKE(S)NOTED. Laboratory test finding (navigational concept) Laboratory test r esult Normal (applies to non-numeric results) [facility] ID Date Data Source [id number] 07/02/2020 09:29:00 AM EST [facility] ([facility] Name Value Range Interpretation Code Description Data Tyesha rce(s) Supporting Document(s) It Serum Interpretation Laboratory test result N ormal (applies to non-numeric results) [facility] ([facility] NO MONOCLONAL BANDS NOTED. Laboratory test finding (navigational concept) Laboratory test r esult Normal (applies to non-numeric results) [facility] ID Date Data Source [id number] 07/02/2020 09:29:00 AM EST [facility] ([facility] Name Value Range Interpretation Code Description Data Tyesha rce(s) Supporting Document(s) Glucose, Fasting 120 mg/dL 70-100 Above high normal M ED[facility] ([facility] Glomerular Filtration Rate 25.6 Below low normal [facility] ([facility] <content>Units are mL/min/1.73 m2</content>
<content></content>
<content>Chronic Kidney Disease Staging per NKF:</content>
<content></content>
<content>Stage I & II GFR >=60 Normal to Mildly Decreased</content>
<content>Stage III GFR 30- 59 Moderately Decreased</content>
<content>Stage IV GFR 15-29 Severely Decreased</content>
<content>Stage V GFR <15 Very Little GFR Left</content>
<content>ESRD GFR <15 on HIGH SPEED OPERATOR</content>
<content></content> Creatinine For GFR 2.62 mg/dL 0.70-1.30 Above high normal [facility] ([facility] Blood Urea Nitrogen 37 mg/dL 7-18 Above high normal [facility] ([facility] Sodium Level 139 meq/L 136-145 Normal (applies to non-numeric res ults) [facility] ([facility] Potassium Serum 4.7 meq/L 3.5-5.1 Normal (applies to non-numeric results) [facility] ([facility] Anion Gap 7 meq/L 8-16 Below low normal [facility] ( [facility] Chloride Level 109 meq/L 98-107 Above high normal [facility] ([facility] Carbon Dioxide Level 23 meq/L 21-32 Normal (applies to non-num zana results) [facility] ([facility] Alt/SGPT 21 U/L 12-78 Normal (applies to non-numeric resul ts) [facility] ([facility] Ast/Sgot 13 U/L 7-37 Normal (applies to non-numeric resul ts) [facility] ([facility] Calcium Level 9.1 mg/dL 8.8-10.2 Normal (applies to non-numeric re sults) [facility] ([facility] Total Protein 6.6 GM/DL 6.4-8.2 Normal (applies to non-numeric re sults) [facility] ([facility] Alkaline Phosphatase 64 U/L 45-117 Normal (applies to non-num zana results) [facility] ([facility] Bilirubin,Total 0.4 mg/dL 0.2-1.0 Normal (applies to non-numeric results) [facility] ([facility] Albumin 3.2 GM/DL 3.2-5.2 Normal (applies to non-numeric resul ts) [facility] ([facility] Albumin/Globulin Ratio 0.9 Normal (applies to non-n umeric results) [facility] ([facility] ID Date Data Source [id number] 07/02/2020 09:29:00 AM EST [facility] ([facility] Name Value Range Interpretation Code Description Data Tyesha rce(s) Supporting Document(s) White Blood Count 4.9 10 4.0-10.0 Normal (applies to non-numeri c results) [facility] ([facility] Red Blood Count 3.81 10 4.30-6.10 Below low normal [facility] ([facility] Hemoglobin 11.2 g/dL 13.5-17.5 Below low normal [facility] ( [facility] Mean Corpuscular Volume 96.3 fl 80.0-96.0 Above high normal [facility] ([facility] Mean Corpuscular Hemoglobin 29.4 pg 27.0-33.0 Norm al (applies to non-numeric results) [facility] ([facility] ) Hematocrit 36.7 % 42.0-52.0 Below low normal [facility] ( [facility] Mean Corpuscular HGB Conc 30.5 g/dL 32.0-36.5 Below low normal [facility] ([facility] Red Cell Distribution Width 17.9 % 11.5-14.5 Above high normal [facility] ([facility] Platelet Count, Automated 201 10 150-450 Normal (applies to non-numeric results) [facility] ([facility] Neutrophils % 54.5 % 36.0-66.0 Normal (applies to non-numeric re sults) [facility] ([facility] Lymph % 20.1 % 24.0-44.0 Below low normal [facility] ( [facility] [place] % 20.3 % 0.0-5.0 Above high normal [facility] ([facility] Eos % 2.5 % 0.0-3.0 Normal (applies to non-numeric resul ts) [facility] ([facility] Baso % 1.8 % 0.0-1.0 Above high normal [facility] ([facility] Nucleated Red Blood Cell % 0.0 % 0-0 Normal (applies to n on-numeric results) [facility] ([facility] Immature Granulocyte % 0.8 % 0-3.0 Normal (applies to non-n umeric results) [facility] ([facility] Lymph # 1.0 10 1.5-5.0 Below low normal [facility] ( [facility] Neutrophils # 2.7 10 1.5-8.5 Normal (applies to non-numeric re sults) [facility] ([facility] [place] # 1.0 10 0.0-0.8 Above high normal [facility] ([facility] Eos # 0.1 10 0.0-0.5 Normal (applies to non-numeric resul ts) [facility] ([facility] Baso # 0.1 10 0.0-0.2 Normal (applies to non-numeric resul ts) [facility] ([facility] ID Date Data Source [id number] 06/04/2020 09:16:00 AM EDT [facility] ([facility] Name Value Range Interpretation Code Description Data Tyesha rce(s) Supporting Document(s) Free [place] Light Chains Serum 26.0 mg/L 5.7-26.3 N ormal (applies to non-numeric results) [facility] ([facility] ) Free [place] Light Chains Serum 46.5 mg/L 3.3-19.4 Above high normal [facility] ([facility] [place]/Lambda Ratio Serum 1.79 0.26-1.65 Above high normal [facility] ([facility] ID Date Data Source [id number] 06/04/2020 09:16:00 AM EDT [facility] Name Value Range Interpretation Code Description Data Tyesha rce(s) Supporting Document(s) Pcyv-8-Azvkestzddcxk [Mass/volume] in Serum or Plasma 4.4 mg/L 0.6-2.4 Above high normal [facility] ([facility] ) Siemens Immulite 2000 Immunochemiluminom etric assay (ICMA) . Values obtained with different assay methods or kits cannot be used interchangeably. Results cannot be interpreted as absolute evidence of the presence or absence of malignant disease. Performed at: - [facility] [id number] [employer] Mechanic: Mercedes Giron MD, Phone: [phone] Performed at: [facility] [id number] [employer] Mechanic: Dario Pisano MD, Phone: [phone] ID Date Data Source [id number] 06/04/2020 09:16:00 AM EDT [facility] Name Value Range Interpretation Code Description Data Tyesha rce(s) Supporting Document(s) Hltpv-8-Smegjmaqv % 15.1 % 7.1-11.8 Above high normal [facility] ([facility] Albumin % 56.3 % 55.8-66.1 Normal (applies to non-numeric resul ts) [facility] ([facility] Lkipb-2-Xxobeypa % 6.5 % 2.9-4.9 Above high normal [facility] ([facility] Xavd-1-Drcilncvq % 5.4 % 3.2-6.5 Normal (applies to non-numer ic results) [facility] ([facility] Adzx-9-Rivohkbxi % 6.3 % 4.7-7.2 Normal (applies to non-numer ic results) [facility] ([facility] Gamma Globulin % 10.4 % 11.1-18.8 Below low normal [facility] ([facility] Dtzbb-8-Jmxdltsws 0.94 GM/DL 0.42-0.99 Normal (applies to non- numeric results) [facility] ([facility] Albumin 3.49 GM/DL 3.29-5.55 Normal (applies to non-numeric resul ts) [facility] ([facility] Odmor-2-Elyptbelx 0.40 GM/DL 0.17-0.41 Normal (applies to non- numeric results) [facility] ([facility] Gamma Globulins 0.64 GM/DL 0.65-1.58 Below low normal [facility] ([facility] Owvh-1-Mfgclomwc 0.33 GM/DL 0.19-0.55 Normal (applies to non-numeric results) [facility] ([facility] Ysge-4-Gpghkpyng 0.39 GM/DL 0.28-0.60 Normal (applies to non-numeric results) [facility] ([facility] Total Protein 6.2 GM/DL 6.4-8.2 Below low normal [facility] T ([facility] Spep Interpretation Laboratory test result Sahra l (applies to non-numeric results) [facility] ([facility] ) HYPOGAMMAGLOBULINEMIA. SUGGEST SERUM AND URINE IMMUNOTYPING. Laboratory test finding (navigational concept) Laboratory test r esult Normal (applies to non-numeric results) [facility] ([facility] REV'D BY Edilson FARNSWORTH ID Date Data Source [id number] 06/04/2020 09:16:00 AM EDT [facility] ([facility] Name Value Range Interpretation Code Description Data Tyesha rce(s) Supporting Document(s) Immunoglobulin A 147.0 mg/dL 70-400 Normal (applies to non-numeri c results) [facility] ([facility] Immunoglobulin G 611 mg/dL 681-1648 Below low normal [facility] ([facility] Immunoglobulin M 24.4 mg/dL 40-230 Below low normal [facility] ([facility] ID Date Data Source [id number] 06/04/2020 09:16:00 AM EDT [facility] Name Value Range Interpretation Code Description Data Tyesha rce(s) Supporting Document(s) Lactate dehydrogenase [Enzymatic activity/volume] in Serum o r Plasma 178 U/L 87-241 Normal (applies to non-numeric results) [facility] ([facility] ID Date Data Source [id number] 06/04/2020 09:16:00 AM EDT [facility] Name Value Range Interpretation Code Description Data Tyesha rce(s) Supporting Document(s) Glucose, Fasting 140 mg/dL 70-100 Above high normal M [facility] ([facility] Blood Urea Nitrogen 28 mg/dL 7-18 Above high normal [facility] ([facility] Creatinine For GFR 2.11 mg/dL 0.70-1.30 Above high normal [facility] ([facility] Glomerular Filtration Rate 32.8 Below low normal [facility] ([facility] <content>Units are mL/min/1.73 m2</content>
<content></content>
<content>Chronic Kidney Disease Staging per NKF:</content>
<content></content>
<content>Stage I & II GFR >=60 Normal to Mildly Decreased</content>
<content>Stage III GFR 30-59 Moderately Decreased</content>
<content>Stage IV GFR 15-29 Severely Decreased</content>
<content>Stage V GFR <15 Very Little GFR Left</content>
<content>ESRD GFR <15 on HIGH SPEED OPERATOR</content>
<content></content> Sodium Level 141 meq/L 136-145 Normal (applies to non-numeric res ults) [facility] ([facility] Carbon Dioxide Level 23 meq/L 21-32 Normal (applies to non-num zana results) [facility] ([facility] Potassium Serum 4.2 meq/L 3.5-5.1 Normal (applies to non-numeric results) [facility] ([facility] Chloride Level 110 meq/L 98-107 Above high normal MED [facility] ([facility] Calcium Level 8.9 mg/dL 8.8-10.2 Normal (applies to non-numeric re sults) [facility] ([facility] Ast/Sgot 12 U/L 7-37 Normal (applies to non-numeric resul ts) [facility] ([facility] Anion Gap 8 meq/L 8-16 Normal (applies to non-numeric resul ts) [facility] ([facility] Bilirubin,Total 0.3 mg/dL 0.2-1.0 Normal (applies to non-numeric results) [facility] ([facility] Alt/SGPT 19 U/L 12-78 Normal (applies to non-numeric resul ts) [facility] ([facility] Alkaline Phosphatase 63 U/L 45-117 Normal (applies to non-num zana results) [facility] ([facility] Total Protein 6.7 GM/DL 6.4-8.2 Normal (applies to non-numeric re sults) [facility] ([facility] Albumin 3.0 GM/DL 3.2-5.2 Below low normal [facility] ( [facility] Albumin/Globulin Ratio 0.8 Normal (applies to non-n umeric results) [facility] ([facility] ID Date Data Source [id number] 06/04/2020 09:16:00 AM EDT [facility] ([facility] Name Value Range Interpretation Code Description Data Tyesha rce(s) Supporting Document(s) White Blood Count 5.1 10 4.0-10.0 Normal (applies to non-numeri c results) [facility] ([facility] Hematocrit 36.4 % 42.0-52.0 Below low normal [facility] ( [facility] Red Blood Count 3.77 10 4.30-6.10 Below low normal [facility] ([facility] Hemoglobin 11.2 g/dL 13.5-17.5 Below low normal [facility] ( [facility] Mean Corpuscular Hemoglobin 29.7 pg 27.0-33.0 Norm al (applies to non-numeric results) [facility] ([facility] ) Mean Corpuscular Volume 96.6 fl 80.0-96.0 Above high normal [facility] ([facility] Mean Corpuscular HGB Conc 30.8 g/dL 32.0-36.5 Below low normal [facility] ([facility] Platelet Count, Automated 175 10 150-450 Normal (applies to non-numeric results) [facility] ([facility] ) Red Cell Distribution Width 17.9 % 11.5-14.5 Above high normal [facility] ([facility] [place] % 16.9 % 0.0-5.0 Above high normal [facility] ([facility] Neutrophils % 54.8 % 36.0-66.0 Normal (applies to non-numeric re sults) [facility] ([facility] Lymph % 21.0 % 24.0-44.0 Below low normal [facility] ( [facility] Baso % 1.6 % 0.0-1.0 Above high normal [facility] ([facility] Immature Granulocyte % 0.8 % 0-3.0 Normal (applies to non-n umeric results) [facility] ([facility] Eos % 4.9 % 0.0-3.0 Above high normal [facility] ([facility] Neutrophils # 2.8 10 1.5-8.5 Normal (applies to non-numeric re sults) [facility] ([facility] Nucleated Red Blood Cell % 0.0 % 0-0 Normal (applies to n on-numeric results) [facility] ([facility] Lymph # 1.1 10 1.5-5.0 Below low normal [facility] ( [facility] [place] # 0.9 10 0.0-0.8 Above high normal [facility] ([facility] Baso # 0.1 10 0.0-0.2 Normal (applies to non-numeric resul ts) [facility] ([facility] Eos # 0.3 10 0.0-0.5 Normal (applies to non-numeric resul ts) [facility] ([facility] ID Date Data Source [id number] 05/06/2020 08:25:00 AM EDT [facility] ([facility] Name Value Range Interpretation Code Description Data Tyesha rce(s) Supporting Document(s) White Blood Count 5.8 10 4.0-10.0 Normal (applies to non-numeri c results) [facility] ([facility] Red Blood Count 3.79 10 4.30-6.10 Below low normal MED [facility] ([facility] Hematocrit 37.3 % 42.0-52.0 Below low normal [facility] ( [facility] Hemoglobin 11.4 g/dL 13.5-17.5 Below low normal [facility] ( [facility] Mean Corpuscular Volume 98.4 fl 80.0-96.0 Above high normal [facility] ([facility] Mean Corpuscular HGB Conc 30.6 g/dL 32.0-36.5 Below low normal [facility] ([facility] Red Cell Distribution Width 18.0 % 11.5-14.5 Above high normal [facility] ([facility] Mean Corpuscular Hemoglobin 30.1 pg 27.0-33.0 Norm al (applies to non-numeric results) [facility] ([facility] ) Neutrophils % 56.6 % 36.0-66.0 Normal (applies to non-numeric re sults) [facility] ([facility] Lymph % 18.6 % 24.0-44.0 Below low normal [facility] ( [facility] Platelet Count, Automated 176 10 150-450 Normal (applies to non-numeric results) [facility] ([facility] ) [place] % 20.2 % 0.0-5.0 Above high normal [facility] ([facility] Eos % 2.2 % 0.0-3.0 Normal (applies to non-numeric resul ts) [facility] ([facility] Baso % 1.7 % 0.0-1.0 Above high normal [facility] ([facility] Nucleated Red Blood Cell % 0.0 % 0-0 Normal (applies to n on-numeric results) [facility] ([facility] Neutrophils # 3.3 10 1.5-8.5 Normal (applies to non-numeric re sults) [facility] ([facility] Immature Granulocyte % 0.7 % 0-3.0 Normal (applies to non-n umeric results) [facility] ([facility] [place] # 1.2 10 0.0-0.8 Above high normal [facility] ([facility] Lymph # 1.1 10 1.5-5.0 Below low normal [facility] ( [facility] Eos # 0.1 10 0.0-0.5 Normal (applies to non-numeric resul ts) [facility] ([facility] Baso # 0.1 10 0.0-0.2 Normal (applies to non-numeric resul ts) [facility] ([facility] ID Date Data Source [id number] 05/06/2020 08:25:00 AM EDT [facility] ([facility] Name Value Range Interpretation Code Description Data Tyesha rce(s) Supporting Document(s) Glucose, Fasting 149 mg/dL 70-100 Above high normal M [facility] ([facility] Creatinine For GFR 2.16 mg/dL 0.70-1.30 Above high normal [facility] ([facility] Blood Urea Nitrogen 25 mg/dL 7-18 Above high normal [facility] ([facility] Potassium Serum 4.5 meq/L 3.5-5.1 Normal (applies to non-numeric results) [facility] ([facility] Glomerular Filtration Rate 32.0 Below low normal [facility] ([facility] <content>Units are mL/min/1.73 m2</content>
<content></content>
<content>Chronic Kidney Disease Staging per NKF:</content>
<content></content>
<content>Stage I & II GFR >=60 Normal to Mildly Decreased</content>
<content>Stage III GFR 30-59 Moderately Decreased</content>
<content>Stage IV GFR 15-29 Severely Decreased</content>
<content>Stage V GFR <15 Very Little GFR Left</content>
<content>ESRD GFR <15 on HIGH SPEED OPERATOR</content>
<content></content> Sodium Level 142 meq/L 136-145 Normal (applies to non-numeric res ults) [facility] ([facility] Carbon Dioxide Level 22 meq/L 21-32 Normal (applies to non-num zana results) [facility] ([facility] Chloride Level 112 meq/L 98-107 Above high normal [facility] ([facility] Calcium Level 9.1 mg/dL 8.8-10.2 Normal (applies to non-numeric re sults) [facility] ([facility] Anion Gap 8 meq/L 8-16 Normal (applies to non-numeric resul ts) [facility] ([facility] Ast/Sgot 14 U/L 7-37 Normal (applies to non-numeric resul ts) [facility] ([facility] Alt/SGPT 21 U/L 12-78 Normal (applies to non-numeric resul ts) [facility] ([facility] Alkaline Phosphatase 69 U/L 45-117 Normal (applies to non-num zana results) [facility] ([facility] Bilirubin,Total 0.4 mg/dL 0.2-1.0 Normal (applies to non-numeric results) [facility] ([facility] Albumin 3.0 GM/DL 3.2-5.2 Below low normal [facility] ( [facility] Albumin/Globulin Ratio 0.9 Normal (applies to non-n umeric results) [facility] ([facility] Total Protein 6.4 GM/DL 6.4-8.2 Normal (applies to non-numeric re sults) [facility] ([facility] ID Date Data Source [id number] 05/06/2020 08:25:00 AM EDT [facility] ([facility] Name Value Range Interpretation Code Description Data Tyesha rce(s) Supporting Document(s) Immunoglobulin G 681 mg/dL 681-1648 Normal (applies to non-numeric results) [facility] ([facility] Immunoglobulin A 184.0 mg/dL 70-400 Normal (applies to non-numeri c results) [facility] ([facility] Immunoglobulin M 25.1 mg/dL 40-230 Below low normal [facility] ID Date Data Source [id number] 05/06/2020 08:25:00 AM EDT [facility] ([facility] Name Value Range Interpretation Code Description Data Tyesha rce(s) Supporting Document(s) Free Lambda Light Chains Serum 24.8 mg/L 5.7-26.3 N ormal (applies to non-numeric results) [facility] ([facility] ) Free [place] Light Chains Serum 51.4 mg/L 3.3-19.4 Above high normal [facility] ([facility] [place]/Lambda Ratio Serum 2.07 0.26-1.65 Above high normal [facility] ([facility] Performed at: RN - [facility] [address] [id number] [employer] Mechanic: Mercedes Giron MD, Phone: [phone] ID Date Data Source [id number] 04/05/2020 05:05:00 PM EDT [facility] Name Value Range Interpretation Code Description Data Tyesha rce(s) Supporting Document(s) Free [place] Lt Chains,S 59.3 mg/L 3.3-19.4 Above high normal [facility] Free Lambda Lt Chains,S 32.2 mg/L 5.7-26.3 Above high normal [facility] [place]/Lambda Ratio,S 1.84 0.26-1.65 Above high normal [facility] ID Date Data Source [id number] 04/04/2020 09:00:00 AM EDT [facility] ([facility] Name Value Range Interpretation Code Description Data Tyesha rce(s) Supporting Document(s) Albumin % 54.8 % 55.8-66.1 Below low normal [facility] ( [facility] Dwvl-2-Kwwpmnzke % 6.6 % 4.7-7.2 Normal (applies to non-numer ic results) [facility] ([facility] Uwxfi-9-Yalndbhu % 6.5 % 2.9-4.9 Above high normal [facility] ([facility] Rgynx-4-Rpcvaqqgh % 15.2 % 7.1-11.8 Above high normal [facility] ([facility] Gamma Globulin % 11.1 % 11.1-18.8 Normal (applies to non-numeric results) [facility] ([facility] Albumin 3.29 GM/DL 3.29-5.55 Normal (applies to non-numeric resul ts) [facility] ([facility] Ztts-4-Taxjqekss % 5.8 % 3.2-6.5 Normal (applies to non-numer ic results) [facility] ([facility] Vgiwa-6-Uomzyrsxj 0.39 GM/DL 0.17-0.41 Normal (applies to non- numeric results) [facility] ([facility] Pcuwd-9-Vfasaljdn 0.91 GM/DL 0.42-0.99 Normal (applies to non- numeric results) [facility] ([facility] Ttoe-1-Vizsksaxy 0.40 GM/DL 0.28-0.60 Normal (applies to non-numeric results) [facility] ([facility] Gamma Globulins 0.67 GM/DL 0.65-1.58 Normal (applies to non-numeric results) [facility] ([facility] Total Protein 6.0 GM/DL 6.4-8.2 Below low normal [facility] ([facility] Luqc-1-Lxbblfmsj 0.35 GM/DL 0.19-0.55 Normal (applies to non-numeric results) [facility] ([facility] Spep Interpretation Laboratory test result Sahra l (applies to non-numeric results) [facility] ([facility] ) M-SPIKE NOTED IN LATE GAMMA REGION. CONCENTRATION = 0.12 GM/DL Laboratory test finding (navigational concept) Laboratory test r esult Normal (applies to non-numeric results) [facility] ([facility] REV'D BY Annika BANGONG ID Date Data Source [id number] 04/04/2020 09:00:00 AM EDT [facility] ([facility] Name Value Range Interpretation Code Description Data Tyesha rce(s) Supporting Document(s) Blood Urea Nitrogen 28 mg/dL 7-18 Above high normal [facility] ([facility] Creatinine For GFR 2.06 mg/dL 0.70-1.30 Above high normal [facility] ([facility] Glucose, Fasting 124 mg/dL 70-100 Above high normal M [facility] ([facility] Sodium Level 141 meq/L 136-145 Normal (applies to non-numeric res ults) [facility] ([facility] Potassium Serum 4.6 meq/L 3.5-5.1 Normal (applies to non-numeric results) [facility] ([facility] Glomerular Filtration Rate 33.8 Below low normal [facility] ([facility] <content>Units are mL/min/1.73 m2</content>
<content></content>
<content>Chronic Kidney Disease Staging per NKF:</content>
<content></content>
<content>Stage I & II GFR >=60 Normal to Mildly Decreased</content>
<content>Stage III GFR 30-59 Moderately Decreased</content>
<content>Stage IV GFR 15-29 Severely Decreased</content>
<content>Stage V GFR <15 Very Little GFR Left</content>
<content>ESRD GFR <15 on HIGH SPEED OPERATOR</content>
<content></content> Carbon Dioxide Level 24 meq/L 21-32 Normal (applies to non-num zana results) [facility] ([facility] Anion Gap 6 meq/L 8-16 Below low normal [facility] ( [facility] Chloride Level 111 meq/L 98-107 Above high normal [facility] ([facility] Alt/SGPT 19 U/L 12-78 Normal (applies to non-numeric resul ts) [facility] ([facility] Calcium Level 9.0 mg/dL 8.8-10.2 Normal (applies to non-numeric re sults) [facility] ([facility] Ast/Sgot 13 U/L 7-37 Normal (applies to non-numeric resul ts) [facility] ([facility] Bilirubin,Total 0.4 mg/dL 0.2-1.0 Normal (applies to non-numeric results) [facility] ([facility] Alkaline Phosphatase 69 U/L 45-117 Normal (applies to non-num zana results) [facility] ([facility] Total Protein 6.5 GM/DL 6.4-8.2 Normal (applies to non-numeric re sults) [facility] ([facility] Albumin 2.9 GM/DL 3.2-5.2 Below low normal [facility] ( [facility] Albumin/Globulin Ratio 0.8 Normal (applies to non-n umeric results) [facility] ([facility] ID Date Data Source [id number] 04/04/2020 09:00:00 AM EDT [facility] ([facility] Name Value Range Interpretation Code Description Data Tyesha rce(s) Supporting Document(s) Free [place] Light Chains Serum Laboratory test result Normal (applies to non- numeric results) [facility] ([facility] ) SEE SEPARATE REPORT Testing performed at reference lab . Report copy to follow on a separate form. 05/12/20 REF LAB#:[id number] Free Lambda Light Chains Serum Laboratory test result Normal (applies to non- numeric results) [facility] ([facility] ) SEE SEPARATE REPORT [place]/Lambda Ratio Serum Laboratory test result Normal (applies to non-numeric results) [facility] ([facility] ) SEE SEPARATE REPORT ID Date Data Source [id number] 04/04/2020 09:00:00 AM EDT [facility] ([facility] Name Value Range Interpretation Code Description Data Tyesha rce(s) Supporting Document(s) Red Blood Count 3.35 10 4.30-6.10 Below low normal [facility] ([facility] White Blood Count 4.0 10 4.0-10.0 Normal (applies to non-numeri c results) [facility] ([facility] Hemoglobin 10.2 g/dL 13.5-17.5 Below low normal [facility] ( [facility] Hematocrit 32.4 % 42.0-52.0 Below low normal [facility] ( [facility] Mean Corpuscular Hemoglobin 30.4 pg 27.0-33.0 Norm al (applies to non-numeric results) [facility] ([facility] ) Mean Corpuscular Volume 96.7 fl 80.0-96.0 Above high normal [facility] ([facility] Mean Corpuscular HGB Conc 31.5 g/dL 32.0-36.5 Below low normal [facility] ([facility] Neutrophils % 44.5 % 36.0-66.0 Normal (applies to non-numeric re sults) [facility] ([facility] Platelet Count, Automated 162 10 150-450 Normal (applies to non-numeric results) [facility] ([facility] ) Red Cell Distribution Width 17.3 % 11.5-14.5 Above high normal [facility] ([facility] Lymph % 27.6 % 24.0-44.0 Normal (applies to non-numeric resul ts) [facility] ([facility] [place] % 21.3 % 0.0-5.0 Above high normal [facility] ([facility] Baso % 1.8 % 0.0-1.0 Above high normal [facility] ([facility] Immature Granulocyte % 0.3 % 0-3.0 Normal (applies to non-n umeric results) [facility] ([facility] Eos % 4.5 % 0.0-3.0 Above high normal [facility] ([facility] Neutrophils # 1.8 10 1.5-8.5 Normal (applies to non-numeric re sults) [facility] ([facility] Lymph # 1.1 10 1.5-5.0 Below low normal [facility] ( [facility] Nucleated Red Blood Cell % 0.0 % 0-0 Normal (applies to n on-numeric results) [facility] ([facility] Eos # 0.2 10 0.0-0.5 Normal (applies to non-numeric resul ts) [facility] ([facility] [place] # 0.9 10 0.0-0.8 Above high normal [facility] ([facility] Baso # 0.1 10 0.0-0.2 Normal (applies to non-numeric resul ts) [facility] ([facility] ID Date Data Source [id number] 03/07/2020 07:56:00 AM EDT [facility] ([facility] Name Value Range Interpretation Code Description Data Tyesha rce(s) Supporting Document(s) Hrgce-6-Fyroizwp % 6.9 % 2.9-4.9 Above high normal [facility] ([facility] Albumin % 56.2 % 55.8-66.1 Normal (applies to non-numeric resul ts) [facility] ([facility] Zntkj-2-Rcpwzlign % 16.9 % 7.1-11.8 Above high normal [facility] ([facility] Wmxc-4-Ctoazrfwy % 6.2 % 4.7-7.2 Normal (applies to non-numer ic results) [facility] ([facility] Gamma Globulin % 8.3 % 11.1-18.8 Below low normal ME DENT ([facility] Albumin 3.20 GM/DL 3.29-5.55 Below low normal [facility] ( [facility] Rqil-7-Wjgsvxzgr % 5.5 % 3.2-6.5 Normal (applies to non-numer ic results) [facility] ([facility] Ouajd-1-Psqhorylf 0.39 GM/DL 0.17-0.41 Normal (applies to non- numeric results) [facility] ([facility] Xcswv-0-Oncfmqsyt 0.96 GM/DL 0.42-0.99 Normal (applies to non- numeric results) [facility] ([facility] Oram-7-Sqtuaauby 0.31 GM/DL 0.19-0.55 Normal (applies to non-numeric results) [facility] ([facility] Nqno-2-Stkdqrkob 0.35 GM/DL 0.28-0.60 Normal (applies to non-numeric results) [facility] ([facility] Gamma Globulins 0.47 GM/DL 0.65-1.58 Below low normal MED ENT ([facility] Spep Interpretation Laboratory test result Sahra l (applies to non-numeric results) [facility] ([facility] ) M-SPIKE NOTED IN LATE GAMMA REGION. CONCENTRATION = 0.11 GM/DL Total Protein 5.7 GM/DL 6.4-8.2 Below low normal MEDEN T ([facility] Laboratory test finding (navigational concept) Laboratory test r esult Normal (applies to non-numeric results) [facility] ([facility] REV'D BY Edilson FARNSWORTH ID Date Data Source [id number] 03/07/2020 07:56:00 AM EDT [facility] ([facility] Name Value Range Interpretation Code Description Data Tyesha rce(s) Supporting Document(s) Free [place] Light Chains Serum 26.9 mg/L 3.3-19.4 Above high normal [facility] ([facility] [place]/Lambda Ratio Serum 1.65 0.26-1.65 Normal (applies to non-numeric results) [facility] ([facility] ) Performed at: RN - [facility] [address] [id number] [employer] Mechanic: Mercedes Giron MD, Phone: [phone] Free [place] Light Chains Serum 16.3 mg/L 5.7-26.3 N ormal (applies to non-numeric results) [facility] ([facility] ) ID Date Data Source [id number] 03/07/2020 07:56:00 AM EDT [facility] ([facility] Name Value Range Interpretation Code Description Data Tyesha rce(s) Supporting Document(s) Glucose, Fasting 148 mg/dL 70-100 Above high normal M EDENT ([facility] Blood Urea Nitrogen 23 mg/dL 7-18 Above high normal [facility] ([facility] Sodium Level 142 meq/L 136-145 Normal (applies to non-numeric res ults) [facility] ([facility] Glomerular Filtration Rate 37.6 Below low normal [facility] ([facility] <content>Units are mL/min/1.73 m2</content>
<content></content>
<content>Chronic Kidney Disease Staging per NKF:</content>
<content></content>
<content>Stage I & II GFR >=60 Normal to Mildly Decreased</content>
<content>Stage III GFR 30-59 Moderately Decreased</content>
<content>Stage IV GFR 15-29 Severely Decreased</content>
<content>Stage V GFR <15 Very Little GFR Left</content>
<content>ESRD GFR <15 on HIGH SPEED OPERATOR</content>
<content></content> Creatinine For GFR 1.88 mg/dL 0.70-1.30 Above high normal [facility] ([facility] Chloride Level 112 meq/L 98-107 Above high normal MED ENT ([facility] Carbon Dioxide Level 22 meq/L 21-32 Normal (applies to non-num zana results) [facility] ([facility] Potassium Serum 4.4 meq/L 3.5-5.1 Normal (applies to non-numeric results) [facility] ([facility] Anion Gap 8 meq/L 8-16 Normal (applies to non-numeric resul ts) [facility] ([facility] Calcium Level 8.7 mg/dL 8.8-10.2 Below low normal MED[facility] T ([facility] Ast/Sgot 9 U/L 7-37 Normal (applies to non-numeric resul ts) [facility] ([facility] Alkaline Phosphatase 82 U/L 45-117 Normal (applies to non-num zana results) [facility] ([facility] Alt/SGPT 18 U/L 12-78 Normal (applies to non-numeric resul ts) [facility] ([facility] Bilirubin,Total 0.3 mg/dL 0.2-1.0 Normal (applies to non-numeric results) [facility] ([facility] Total Protein 6.3 GM/DL 6.4-8.2 Below low normal MEDEN T ([facility] Albumin 2.9 GM/DL 3.2-5.2 Below low normal [facility] ( [facility] Albumin/Globulin Ratio 0.9 Normal (applies to non-n umeric results) [facility] ([facility] ID Date Data Source [id number] 03/07/2020 07:56:00 AM EDT [facility] ([facility] Name Value Range Interpretation Code Description Data Tyesha rce(s) Supporting Document(s) Red Blood Count 3.46 10 4.30-6.10 Below low normal MED ENT ([facility] White Blood Count 4.4 10 4.0-10.0 Normal (applies to non-numeri c results) [facility] ([facility] Hemoglobin 10.6 g/dL 13.5-17.5 Below low normal [facility] ( [facility] Mean Corpuscular Volume 98.0 fl 80.0-96.0 Above high normal [facility] ([facility] Hematocrit 33.9 % 42.0-52.0 Below low normal [facility] ( [facility] Mean Corpuscular Hemoglobin 30.6 pg 27.0-33.0 Norm al (applies to non-numeric results) [facility] ([facility] ) Mean Corpuscular HGB Conc 31.3 g/dL 32.0-36.5 Below low normal [facility] ([facility] Platelet Count, Automated 149 10 150-450 Below low normal [facility] ([facility] Red Cell Distribution Width 17.5 % 11.5-14.5 Above high normal [facility] ([facility] Lymph % 24.1 % 24.0-44.0 Normal (applies to non-numeric resul ts) [facility] ([facility] Neutrophils % 58.9 % 36.0-66.0 Normal (applies to non-numeric re sults) [facility] ([facility] [place] % 13.7 % 0.0-5.0 Above high normal [facility] ([facility] Eos % 2.0 % 0.0-3.0 Normal (applies to non-numeric resul ts) [facility] ([facility] Immature Granulocyte % 0.2 % 0-3.0 Normal (applies to non-n umeric results) [facility] ([facility] Baso % 1.1 % 0.0-1.0 Above high normal [facility] ([facility] Lymph # 1.1 10 1.5-5.0 Below low normal [facility] ( [facility] Neutrophils # 2.6 10 1.5-8.5 Normal (applies to non-numeric re sults) [facility] ([facility] Nucleated Red Blood Cell % 0.0 % 0-0 Normal (applies to n on-numeric results) [facility] ([facility] Eos # 0.1 10 0.0-0.5 Normal (applies to non-numeric resul ts) [facility] ([facility] [place] # 0.6 10 0.0-0.8 Normal (applies to non-numeric resul ts) [facility] ([facility] Baso # 0.1 10 0.0-0.2 Normal (applies to non-numeric resul ts) [facility] ([facility] ID Date Data Source [id number] 02/22/2020 08:26:00 AM EDT [facility] ([facility] Name Value Range Interpretation Code Description Data Tyesha rce(s) Supporting Document(s) Glucose, Fasting 186 mg/dL 70-100 Above high normal M EDENT ([facility] Blood Urea Nitrogen 27 mg/dL 7-18 Above high normal [facility] ([facility] Creatinine For GFR 2.01 mg/dL 0.70-1.30 Above high normal [facility] ([facility] Glomerular Filtration Rate 34.8 Below low normal [facility] ([facility] <content>Units are mL/min/1.73 m2</content>
<content></content>
<content>Chronic Kidney Disease Staging per NKF:</content>
<content></content>
<content>Stage I & II GFR >=60 Normal to Mildly Decreased</content>
<content>Stage III GFR 30-59 Moderately Decreased</content>
<content>Stage IV GFR 15-29 Severely Decreased</content>
<content>Stage V GFR <15 Very Little GFR Left</content>
<content>ESRD GFR <15 on HIGH SPEED OPERATOR</content>
<content></content> Sodium Level 141 meq/L 136-145 Normal (applies to non-numeric res ults) [facility] ([facility] Potassium Serum 4.3 meq/L 3.5-5.1 Normal (applies to non-numeric results) [facility] ([facility] Chloride Level 110 meq/L 98-107 Above high normal MED E[facility] ([facility] Carbon Dioxide Level 23 meq/L 21-32 Normal (applies to non-num zana results) [facility] ([facility] Anion Gap 8 meq/L 8-16 Normal (applies to non-numeric resul ts) [facility] ([facility] Calcium Level 8.7 mg/dL 8.8-10.2 Below low normal MEDEN T ([facility] Ast/Sgot 11 U/L 7-37 Normal (applies to non-numeric resul ts) [facility] ([facility] Alt/SGPT 19 U/L 12-78 Normal (applies to non-numeric resul ts) [facility] ([facility] Alkaline Phosphatase 74 U/L 45-117 Normal (applies to non-num zana results) [facility] ([facility] Bilirubin,Total 0.4 mg/dL 0.2-1.0 Normal (applies to non-numeric results) [facility] ([facility] Total Protein 6.2 GM/DL 6.4-8.2 Below low normal MEDEN T ([facility] Albumin 2.7 GM/DL 3.2-5.2 Below low normal [facility] ( [facility] Albumin/Globulin Ratio 0.8 Normal (applies to non-n umeric results) [facility] ([facility] ID Date Data Source [id number] 02/22/2020 08:26:00 AM EDT [facility] ([facility] Name Value Range Interpretation Code Description Data Tyesha rce(s) Supporting Document(s) Hemoglobin 10.6 g/dL 13.5-17.5 Below low normal [facility] ( [facility] Red Blood Count 3.42 10 4.30-6.10 Below low normal MED [facility] ([facility] White Blood Count 5.8 10 4.0-10.0 Normal (applies to non-numeri c results) [facility] ([facility] Mean Corpuscular Hemoglobin 31.0 pg 27.0-33.0 Norm al (applies to non-numeric results) [facility] ([facility] ) Mean Corpuscular Volume 99.4 fl 80.0-96.0 Above high normal [facility] ([facility] Hematocrit 34.0 % 42.0-52.0 Below low normal [facility] ( [facility] Mean Corpuscular HGB Conc 31.2 g/dL 32.0-36.5 Below low normal [facility] ([facility] Red Cell Distribution Width 16.8 % 11.5-14.5 Above high normal [facility] ([facility] Neutrophils % 64.6 % 36.0-66.0 Normal (applies to non-numeric re sults) [facility] ([facility] Lymph % 14.8 % 24.0-44.0 Below low normal [facility] ( [facility] Platelet Count, Automated 139 10 150-450 Below low normal [facility] ([facility] Eos % 2.1 % 0.0-3.0 Normal (applies to non-numeric resul ts) [facility] ([facility] [place] % 17.9 % 0.0-5.0 Above high normal [facility] ([facility] Baso % 0.3 % 0.0-1.0 Normal (applies to non-numeric resul ts) [facility] ([facility] Neutrophils # 3.8 10 1.5-8.5 Normal (applies to non-numeric re sults) [facility] ([facility] Nucleated Red Blood Cell % 0.0 % 0-0 Normal (applies to n on-numeric results) [facility] ([facility] Immature Granulocyte % 0.3 % 0-3.0 Normal (applies to non-n umeric results) [facility] ([facility] Eos # 0.1 10 0.0-0.5 Normal (applies to non-numeric resul ts) [facility] ([facility] [place] # 1.0 10 0.0-0.8 Above high normal [facility] ([facility] Lymph # 0.9 10 1.5-5.0 Below low normal [facility] ( [facility] Baso # 0.0 10 0.0-0.2 Normal (applies to non-numeric resul ts) [facility] ([facility] ID Date Data Source [id number] 02/09/2020 08:28:00 AM EDT [facility] ([facility] Name Value Range Interpretation Code Description Data Tyesha rce(s) Supporting Document(s) Glucose, Fasting 106 mg/dL 70-100 Above high normal M EDENT ([facility] Glomerular Filtration Rate 32.1 Below low normal [facility] ([facility] <content>Units are mL/min/1.73 m2</content>
<content></content>
<content>Chronic Kidney Disease Staging per NKF:</content>
<content></content>
<content>Stage I & II GFR >=60 Normal to Mildly Decreased</content>
<content>Stage III GFR 30-59 Moderately Decreased</content>
<content>Stage IV GFR 15-29 Severely Decreased</content>
<content>Stage V GFR <15 Very Little GFR Left</content>
<content>ESRD GFR <15 on HIGH SPEED OPERATOR</content>
<content></content> Creatinine For GFR 2.16 mg/dL 0.70-1.30 Above high normal [facility] ([facility] Blood Urea Nitrogen 34 mg/dL 7-18 Above high normal [facility] ([facility] Sodium Level 141 meq/L 136-145 Normal (applies to non-numeric res ults) [facility] ([facility] Potassium Serum 4.6 meq/L 3.5-5.1 Normal (applies to non-numeric results) [facility] ([facility] Carbon Dioxide Level 23 meq/L 21-32 Normal (applies to non-num zana results) [facility] ([facility] Anion Gap 7 meq/L 8-16 Below low normal [facility] ( [facility] Chloride Level 111 meq/L 98-107 Above high normal [facility] ([facility] Ast/Sgot 12 U/L 7-37 Normal (applies to non-numeric resul ts) [facility] ([facility] Calcium Level 8.8 mg/dL 8.8-10.2 Normal (applies to non-numeric re sults) [facility] ([facility] Alt/SGPT 16 U/L 12-78 Normal (applies to non-numeric resul ts) [facility] ([facility] Bilirubin,Total 0.2 mg/dL 0.2-1.0 Normal (applies to non-numeric results) [facility] ([facility] Alkaline Phosphatase 62 U/L 45-117 Normal (applies to non-num zana results) [facility] ([facility] Albumin/Globulin Ratio 0.8 Normal (applies to non-n umeric results) [facility] ([facility] Total Protein 6.4 GM/DL 6.4-8.2 Normal (applies to non-numeric re sults) [facility] ([facility] Albumin 2.9 GM/DL 3.2-5.2 Below low normal [facility] ( [facility] ID Date Data Source [id number] 02/09/2020 08:28:00 AM EDT [facility] ([facility] Name Value Range Interpretation Code Description Data Tyesha rce(s) Supporting Document(s) White Blood Count 5.5 10 4.0-10.0 Normal (applies to non-numeri c results) [facility] ([facility] Red Blood Count 3.49 10 4.30-6.10 Below low normal MED [facility] ([facility] Hemoglobin 10.9 g/dL 13.5-17.5 Below low normal [facility] ( [facility] Hematocrit 34.7 % 42.0-52.0 Below low normal [facility] ( [facility] Mean Corpuscular Volume 99.4 fl 80.0-96.0 Above high normal [facility] ([facility] Mean Corpuscular Hemoglobin 31.2 pg 27.0-33.0 Norm al (applies to non-numeric results) [facility] ([facility] ) Mean Corpuscular HGB Conc 31.4 g/dL 32.0-36.5 Below low normal [facility] ([facility] Red Cell Distribution Width 17.2 % 11.5-14.5 Above high normal [facility] ([facility] Platelet Count, Automated 169 10 150-450 Normal (applies to non-numeric results) [facility] ([facility] ) Lymph % 16.8 % 24.0-44.0 Below low normal [facility] ( [facility] Neutrophils % 71.3 % 36.0-66.0 Above high normal MEDE NT ([facility] [place] % 9.6 % 0.0-5.0 Above high normal [facility] ([facility] Baso % 0.5 % 0.0-1.0 Normal (applies to non-numeric resul ts) [facility] ([facility] Eos % 1.3 % 0.0-3.0 Normal (applies to non-numeric resul ts) [facility] ([facility] Nucleated Red Blood Cell % 0.0 % 0-0 Normal (applies to n on-numeric results) [facility] ([facility] Immature Granulocyte % 0.5 % 0-3.0 Normal (applies to non-n umeric results) [facility] ([facility] Neutrophils # 4.0 10 1.5-8.5 Normal (applies to non-numeric re sults) [facility] ([facility] Lymph # 0.9 10 1.5-5.0 Below low normal [facility] ( [facility] [place] # 0.5 10 0.0-0.8 Normal (applies to non-numeric resul ts) [facility] ([facility] Eos # 0.1 10 0.0-0.5 Normal (applies to non-numeric resul ts) [facility] ([facility] Baso # 0.0 10 0.0-0.2 Normal (applies to non-numeric resul ts) [facility] ([facility] ID Date Data Source [id number] 08/11/2019 08:19:00 AM EST [facility] ([facility] Name Value Range Interpretation Code Description Data Tyesha rce(s) Supporting Document(s) Albumin [Mass/volume] in Serum or Plasma 2.9 [facility] ([facility]) Alanine aminotransferase [Enzymatic activity/volume] in Serum or Pl asma 20 [facility] ([facility]) Calcium [Mass/volume] in Serum or Plasma 8.3 [facility] ([facility]) Carbon dioxide, total [Moles/volume] in Serum or Plasma 20 [facility] ([facility]) Alkaline phosphatase [Enzymatic activity/volume] in Serum or Plasma 6 4 [facility] ([facility]) Chloride [Moles/volume] in Serum or Plasma 112 [facility] ([facility]) Sodium 140 [facility] Protein [Mass/volume] in Serum or Plasma 7.6 [facility] ([facility]) Potassium [Moles/volume] in Serum or Plasma 4.5 [facility] ([facility] Glucose 151 70-100 [facility] Aspartate aminotransferase [Enzymatic activity/volume] in Serum or Plasma 14 [facility] ([facility]) Urea nitrogen [Mass/volume] in Serum or Plasma 38 [facility] ([facility]) Creatinine For GFR 2.14 [facility] ([facility] ID Date Data Source [id number] 08/11/2019 08:19:00 AM EST [facility] ([facility] Name Value Range Interpretation Code Description Data Tyesha rce(s) Supporting Document(s) White Blood Count 3.4 4.0-10.0 [facility] Red Blood Count 3.46 4.30-6.10 [facility] ([facility] Platelets 119 150-450 [facility] Hematocrit 33.3 [facility] ([facility]) Hemoglobin 10.2 [facility] ([facility]) Procedure Social History Code Duration Value Status Description Data Source(s ) Smoking 04/24/2020 12:00:00 AM EDT Patient is a former smoker completed Patient is a former smoker [facility] Smoking 04/15/2020 12:00:00 AM EDT Patient is a former smoker completed Patient is a former smoker [facility] ([facility] Smoking 03/29/2020 12:00:00 AM EDT Patient is a former smoker completed Patient is a former smoker [facility] ([facility]) Vital Signs ID Date Data Source UNK Name Value Range Interpretation Code Description Data Source(s) Oxygen saturation in Arterial blood by Pulse oximetry 97 % 97 % [facility] ([facility] Body mass index (BMI) [Ratio] 34.3 kg/m2 34.3 k g/m2 [facility] ([facility] Crooks body weight 178 [lb_av] 178 [lb_av] MEDEN T ([facility] Body weight 253.00 [lb_av] 253.00 [lb_av] [facility] T ([facility] Body height 72 [in_i] 72 [in_i] [facility] ([facility] 6'0" Respiratory rate 20 /min 20 /min [facility] ( [facility] Heart rate 68 /min 68 /min [facility] ([facility] Body temperature 97.2 [degF] 97.2 [degF] [facility] ([facility] Diastolic blood pressure 70 mm[Hg] 70 mm[Hg] [facility] ([facility] Systolic blood pressure 140 mm[Hg] 140 mm[Hg] M EDENT ([facility] Body weight 114.761 kg 114.761 kg [facility] ([facility], ) Body mass index (BMI) [Ratio] 34.3 kg/m2 34.3 k g/m2 [facility] ([facility] Body weight 253.00 [lb_av] 253.00 [lb_av] MED[facility] T ([facility]) pt states Body height 72 [in_i] 72 [in_i] [facility] ([facility]) 6'0" Body temperature 97.5 [degF] 97.5 [degF] [facility] Oxygen saturation in Arterial blood by Pulse oximetry 96 % 96 % [facility] ([facility] Heart rate 68 /min 68 /min [facility] ([facility]) Diastolic blood pressure 80 mm[Hg] 80 mm[Hg] [facility] ([facility] Systolic blood pressure 138 mm[Hg] 138 mm[Hg] M [facility] ([facility] ) Oxygen saturation in Arterial blood by Pulse oximetry 96 % 96 % [facility] ([facility] Body mass index (BMI) [Ratio] 34.2 kg/m2 34.2 k g/m2 [facility] ([facility] Crooks body weight 178 [lb_av] 178 [lb_av] [facility] T ([facility] Body weight 252.00 [lb_av] 252.00 [lb_av] [facility] T ([facility] Body height 72 [in_i] 72 [in_i] [facility] ([facility] 6'0" Respiratory rate 18 /min 18 /min [facility] ( [facility] Heart rate 72 /min 72 /min [facility] ([facility] Body temperature 98.1 [degF] 98.1 [degF] [facility] ([facility] Diastolic blood pressure 56 mm[Hg] 56 mm[Hg] [facility] ([facility] Systolic blood pressure 114 mm[Hg] 114 mm[Hg] M EDENT ([facility] Diastolic blood pressure--sitting 70 mm[Hg] 70 mm[Hg] [facility] ([facility]) Systolic blood pressure--sitting 122 mm[Hg] 122 mm[Hg] [facility] ([facility]) Body mass index (BMI) [Ratio] 30.7 kg/m2 30.7 k g/m2 [facility] ([facility]) Body height 76 [in_i] 76 [in_i] [facility] 6'4" Body weight 252.00 [lb_av] 252.00 [lb_av] [facility] T ([facility]) Diastolic blood pressure--sitting 60 mm[Hg] 60 mm[Hg] [facility] ([facility]) large cuff, Ra Systolic blood pressure--sitting 108 mm[Hg] 108 mm[Hg] [facility] ([facility]) large cuff, Ra Heart rate 66 /min 66 /min [facility] ([facility] Body mass index (BMI) [Ratio] 27.8 kg/m2 27.8 k g/m2 [facility] ([facility]) Body height 76 [in_i] 76 [in_i] [facility] 6'4" Body weight 228.00 [lb_av] 228.00 [lb_av] [facility] T ([facility]) Body weight 104.782 kg 104.782 kg [facility] ([facility]) Body mass index (BMI) [Ratio] 31.3 kg/m2 31.3 k g/m2 [facility] ([facility]) Body weight 231.00 [lb_av] 231.00 [lb_av] [facility] T ([facility]) Body height 72 [in_i] 72 [in_i] [facility] ([facility]) 6'0" Oxygen saturation in Arterial blood by Pulse oximetry 97 % 97 % [facility] ([facility]) Heart rate 65 /min 65 /min [facility] ([facility], ) Diastolic blood pressure 64 mm[Hg] 64 mm[Hg] [facility] ([facility]) Systolic blood pressure 122 mm[Hg] 122 mm[Hg] Eddie [facility] ([facility] )
[2020-09-09] MEDS ORDERED: SODIUM CHLORIDE 0.9% INJ 10 ML SYR IV PRN (16:30)
--- NOTE | 2020-09-09 16:58 | REP ---
INDICATION: CVA. According to history provided for previous exam, there is a history of multiple myeloma. COMPARISON: Comparison is made with prior CT studies from December 14, 2018 and November 26, 2017.. TECHNIQUE: Helical scanning is acquired. 5 mm axial images were reformatted. Coronal MPR images were generated. FINDINGS: Digital preliminary [employer] worker radiograph and bone window settings demonstrate a numerous punched-out lytic lesions in the bony calvarium as noted on both prior CT studies and compatible with myeloma this calvarial lesions. Although extensive, these do not appear to have progressed in size or number. No soft tissue mass in the scalp or intracranial extension seen. However, on soft tissue window settings, there is evidence of a new mass in the left frontal lobe with prominent pattern of surrounding vasogenic edema. The mass is slightly hyper attenuating measuring 1.5 cm in diameter. This is a new finding compared with the December 14, 2018 study. There is no evidence of intracranial hemorrhage or extra-axial fluid collection. No midline shift is observed. No other mass lesion is seen. Small-vessel atherosclerotic changes are again noted in the periventricular white matter. There is vascular calcification at the skull base. IMPRESSION: There is a new 1.5 cm left frontal lobe mass with extensive surrounding vasogenic edema suggesting an intracranial metastasis. There is no evidence of hemorrhage or acute infarction. Numerous lytic lesions persist in the bony calvarium consistent with myeloma thus involvement. Vascular calcification, small vessel changes and generalized volume loss are again noted as well.. <Electronically signed by Emiliano Gregorio > 09/09/20 [id number]
[2020-09-09 17:07] LABS: BASO # 0.1 10^3/uL (0.0-0.2); EOS # 0.2 10^3/uL (0.0-0.5); EOS % 2.9 % (0.0-3.0); HEMATOCRIT 33.8 % (42.0-52.0); HEMOGLOBIN 10.8 g/dl (13.5-17.5); LYMPH # 0.9 10^3/uL (1.5-5.0); LYMPH % 14.4 % (24.0-44.0); MEAN CORPUSCULAR HEMOGLOBIN 30.1 pg (27.0-33.0); MEAN CORPUSCULAR VOLUME 94.2 fl (80.0-96.0); MONO # 0.4 10^3/uL (0.0-0.8); MONO % 6.4 % (0.0-5.0); NEUTROPHILS # 4.5 10^3/uL (1.5-8.5); NEUTROPHILS % 75.1 % (36.0-66.0); PLATELET COUNT, AUTOMATED 152 10^3/uL (150-450); RED BLOOD COUNT 3.59 10^6/uL (4.30-6.10)
[2020-09-09] MEDS ORDERED: dexameTHASONE 20MG/5ML VIAL (J1100 PER 1MG) IV ONE (17:15)
[2020-09-09 17:35] LABS: CALCIUM LEVEL 6.6 MG/DL (8.8-10.2); CREATININE FOR GFR 1.76 MG/DL (0.70-1.30); GLOMERULAR FILTRATION RATE 40.5 (>42); POTASSIUM SERUM 3.1 MEQ/L (3.5-5.1)
--- OUTSIDE RECORDS SUMMARY | 2020-09-09 17:55 | CCD ---
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 If you continue you may have access to information: Regarding HIV / AIDS; Provided by facilities licensed or operated by the [facility] Office of Mental Health; or Provided by the [facility] Office for People With Developmental Disabilities. If such information is present, then the following [facility] mandated warning applies: This information has been [...] law may result in a fine or skilled nursing sentence or both. A general authorization for the release of medical or other information is NOT sufficient authorization for further disc losure. Family History Family Member Name Family Member Gender Family Member Status Date o f Status Description Data Source(s) Unknown Male Problem [facility] ([facility]) Unknown Male Problem [facility] ([facility] Unknown Unknown Problem [facility] Unknown Female Problem [facility] ([facility] Unknown Female Problem [facility] ([facility] Unknown Female Problem [facility] ([facility] Encounters Encounter Providers Location Date Indications Data Source(s ) Outpatient Attender: Sylvester Mina [place] [facility] 07/25/2020 12:15:0 0 PM EST [facility] ([facility] Office Visit Attender: NESSA DINH MD Main Office 06/13/2020 09: 06:00 AM EDT [facility] ([facility]) Office Visit Attender: NESSA DINH MD Main Office 05/22/2020 08: 09:00 AM EDT [facility] ([facility]) Outpatient Attender: Sylvester Mina [place] [facility] 04/16/2020 01:45:0 0 PM EDT [facility] ([facility] Office Visit Attender: NESSA DINH MD Main Office 04/12/2020 02: 47:00 PM EDT [facility] ([facility]) Outpatient Attender: Josephine BALDWIN Main Office 03/29/2020 03:00:0 0 PM EDT [facility] ([facility]) Office Visit Attender: NESSA DINH MD Main Office 03/05/2020 10: 26:00 AM EDT [facility] ([facility]) Office Visit Attender: NESSA DINH MD Main Office 02/07/2020 07: 25:00 AM EDT [facility] ([facility]) Office Visit Attender: NESSA DINH MD Main Office 01/08/2020 08: 42:00 AM EDT [facility] ([facility]) Outpatient Referrer: Sylvester Leopoldo 08/31/2019 11:19:00 AM E [facility] Outpatient Referrer: Sylvester Leopoldo 08/28/2019 07:18:00 PM E [facility] Outpatient Attender: Josephine BALDWIN Main Office 08/28/2019 09:15:0 0 AM EST [facility] ([facility]) Immunizations Vaccine Date Status Description Data Source(s) [...] EST RESPIRATORY active [facility] ([facility]) 200 ACTUAT Albuterol 0.09 MG/ACTUAT Metered Dose Inhal er [Ventolin] Ventolin HFA 08/27/2019 12:00:00 AM EST RESPIRATORY active [facility] ([facility]) Aspirin 81 MG Delayed Release Oral Tablet Aspirin Adult Low Strength 08/27/2019 12:00:00 AM EST ORAL active M EDENT ([facility]) lenalidomide 5 MG Oral Capsule [Revlimid] Revlimid 08/27/2019 1 2:00:00 AM EST ORAL completed [facility] ([facility]) Sertraline 100 MG Oral Tablet [Zoloft] Zoloft 08/27/2019 12:00:00 AM EST ORAL active [facility] ([facility]) atorvastatin 20 MG Oral Tablet ATORVASTATIN CALCIUM [...] type / Coverage type Policy ID Covered democrat ID Covered democrat's relationship to spears Policy Spears Plan Information R [facility] [id number] SP [id number] MEDICARE [id number] SP [id number] R O [id number] S [id number] MEDICARE C [id number] S [id number] [employer] [place] Other 0 Self 0 Medicare Part B [facility] Other 0 Se lf 0 r Commercial [id number] 00 Self [id number] 00 Medicare Medicare Primary [id number] Self [id number] Umr Commercial [id number] 00 Self [id number] 00 Medicare Medicare Primary [id number] Self [id number] MEDICARE [id number] SP [id number] UMR [facility] [id number] SP [id number] R [facility] [id number] SP [id number] ANSI-Commercial [id number] ANSI-Commercial [id number] ANSI-Medicare Part B [id number] Commercial [id number] 00 Self [id number] Medicare Medicare Primary [id number] Self [id number] r Commercial [id number] 00 Self [id number] 00 Medicare Medicare Primary [id number] Self [id number] ANSI-Commercial [id number] ANSI-Medicare Part B [id number] ANSI-Commercial [id number] ANSI-Medicare Part B [id number] ANSI-Commercial [id number] ANSI-Commercial [id number] ANSI-Commercial [id number] ANSI-Commercial [id number] ANSI-Medicare Part B [id number] [facility] Part B [id number] Self [id number] Medicare (Part B) Medicare Primary [id number] Self [id number] [facility] [id number] Self [id number] ANSI-Commercial [id number] ANSI-Medicare Part B [id number] ANSI-Commercial [id number] [facility] [id number] SP [id number] MEDICARE [id number] SP [id number] UMR [facility] CARE [id number] SP [id number] UMR [facility] CARE [id number] SP [id number] Umr Medigap Part B [id number] Self [id number] Medicare (Part B) Medicare Primary [id number] Self [id number] Umr Medigap Part B [id number] Self [id number] Medicare (Part B) Medicare Primary [id number] Self [id number] UMR [facility] CARE [id number] SP [id number] UMR/[employer] [id number] SP [id number] Umr Commercial [id number] 00 Self [id number] 00 Medicare Medicare Primary [id number] Self [id number] UMR [facility] CARE [id number] SP [id number] MEDICARE [id number] SP [id number] A Umr Commercial [id number] 00 Self [id number] 00 Medicare Medicare Primary [id number] Family Dependent [id number] [facility] [id number] SP [id number] UMR U [id number] Self [id number] MEDICARE A [id number] Self [id number] A Umr (pr) Medigap Part B [id number] Self [id number] [employer] (pr) Medigap Part B [id number] Self [id number] [place] Primary [id number] Self [id number] [employer] Medigap Part B [id number] Self [id number] Medicare Medicare Primary [id number] Family Dependent [id number] Medicare (Part B) Medicare Primary [id number] Self [id number] [employer] PHCS Ppo Medigap Part B [id number] Self [id number] [employer] U [id number] Self [id number] [employer] [id number] SP [id number] Medicare (Part B) Medicare Primary [id number] Self [id number] MEDICARE C [id number] S [id number] A [employer] PPO O [id number] S [id number] Medicare (Part B) Medicare Primary [id number] Self [id number] [employer] (pr) Medigap Part B [id number] Self [id number] [place] Primary [id number] Self [id number] [employer] PPO O [id number] S [id number] [employer] Medigap Part B [id number] Self [id number] Medicare [facility] Medicare Primary [id number] Self [id number] [employer] Medigap Part B [id number] Self [id number] Medicare Medicare Primary [id number] Family Dependent [id number] [employer] Medigap Part B [id number] Self [id number] Medicare [facility] Medicare Primary [id number] Self [id number] [place] MEDICARE PART B C [id number] S [id number] S [facility], [facility] C [id number] S [id number] Medicare (Part B) Medicare Primary [id number] Self [id number] [employer] Medigap Part B [id number] Self [id number] Medicare [facility] Medicare Primary [id number] Self [id number] [employer] Medigap Part B [id number] Self [id number] Medicare Medicare Primary [id number] Family Dependent [id number] [employer] Medigap Part B [id number] Self [id number] Medicare [facility] Medicare Primary [id number] Self [id number] [employer] Medigap Part B [id number] Self [id number] Medicare Medicare Primary [id number] Family Dependent [id number] [employer] Medigap Part B [id number] Self [id number] Medicare Medicare Primary [id number] Family Dependent [id number] [place] Medigap Part B [id number] Self [id number] Medicare [facility] Medicare Primary [id number] Self [id number] MEDICARE PART A -O/P [id number] 18 [id number] [facility]-O/P [id number] 18 [id number] [employer] Medigap Part B [id number] Self [id number] Medicare Medicare Primary [id number] Family Dependent [id number] [employer] Medigap Part B [id number] Self [id number] Medicare Medicare Primary [id number] Family Dependent [id number] MEDICARE -O/P [id number] 18 [id number] MEDICARE C [id number] S [id number] A [employer] U [id number] Self [id number] [employer] U [id number] Self [id number] [employer] [id number] SP [id number] Marc[employer]. [employer] Medigap Part B Self Medicare Medicare Primary Family Dependent [employer] PPO O [id number] S [id number] [facility] [id number] SP [id number] MEDICARE A [id number] Self [id number] A [employer] U [id number] Self [id number] MEDICARE [id number] SP [id number] A [id number] Surgeries/Procedures Procedure Description Date Indications Data Source(s) INTERROGATION EVAL REMOTE </90 D 1/2/LABOR REPRESENTATIVE LEAD PM 06/07 12:00:00 AM EDT [facility] ([facility]) INTERROGATION REMOTE </90 D EMISSIONS TESTING AND REPAIR TECHNICIAN REVIEW 06/07/20 12:00:00 AM EDT [facility] ([facility]) ECG ROUTINE ECG W/LEAST 12 LDS W/I&R 03/29/2020 12:00: 00 AM EDT [facility] ([facility]) INTERROGATION EVAL IN PERSON 1/DUAL/LABOR REPRESENTATIVE LEAD PM 2019 12:00:00 AM EDT [facility] ([facility]) INTERROGATION EVAL REMOTE </90 D 1/2/LABOR REPRESENTATIVE LEAD PM 10/29 12:00:00 AM EDT [facility] ([facility]) INTERROGATION REMOTE </90 D EMISSIONS TESTING AND REPAIR TECHNICIAN REVIEW 10/30/19 12:00:00 AM EDT MED[facility] ([facility]) ECG ROUTINE ECG W/LEAST 12 LDS W/I&R 08/28/2019 12:00: 00 AM EST [facility] ([facility]) INTERROGATION EVAL REMOTE </90 D 1/2/LABOR REPRESENTATIVE LEAD PM 07/28 12:00:00 AM EST [facility] ([facility]) INTERROGATION REMOTE </90 D EMISSIONS TESTING AND REPAIR TECHNICIAN REVIEW 07/28/20 12:00:00 AM EST [facility] ([facility]) Results ID Date Data Source [id number] 07/02/2020 09:29:00 AM EST [facility] ([facility] Name Value Range Interpretation Code Description Data Tyesha rce(s) Supporting Document(s) Free Arriba Light Chains Serum 51.6 mg/L 3.3-19.4 Above high normal [facility] ([facility] [place]riba/Lambda Ratio Serum 2.11 0.26-1.65 Above high normal [facility] ([facility] Performed at: RN - [facility] [place] [id number] Iv Rn: Mercedes Giron MD, Phone: [phone] Free Lambda Light Chains Serum 24.5 mg/L 5.7-26.3 N ormal (applies to non-numeric results) [facility] ([facility] ) ID Date Data Source [id number] 07/02/2020 09:29:00 AM EST [facility] ([facility] Name Value Range Interpretation Code Description Data Tyesha rce(s) Supporting Document(s) Albumin % 55.6 % 55.8-66.1 Below low normal [facility] ( [facility] Uydgk-1-Akebgigsm % 15.3 % 7.1-11.8 Above high normal [facility] ([facility] Pkkfd-8-Wikuuymr % 6.1 % 2.9-4.9 Above high normal [facility] ([facility] Wwue-2-Tmgycgqft % 5.8 % 3.2-6.5 Normal (applies to non-numer ic results) [facility] ([facility] Gamma Globulin % 10.8 % 11.1-18.8 Below low normal ME DENT ([facility] Ttfg-2-Ibfijdmzy % 6.4 % 4.7-7.2 Normal (applies to non-numer ic results) [facility] ([facility] Albumin 3.34 GM/DL 3.29-5.55 Normal (applies to non-numeric resul ts) [facility] ([facility] Vtirr-9-Fezpnlwkf 0.37 GM/DL 0.17-0.41 Normal (applies to non- numeric results) [facility] ([facility] Lpjgm-3-Cmfuiwuwn 0.92 GM/DL 0.42-0.99 Normal (applies to non- numeric results) [facility] ([facility] Rmwc-1-Kzhlryxrj 0.38 GM/DL 0.28-0.60 Normal (applies to non-numeric results) [facility] ([facility] Mfqh-9-Jkijcmzue 0.35 GM/DL 0.19-0.55 Normal (applies to non-numeric results) [facility] ([facility] Gamma Globulins 0.65 GM/DL 0.65-1.58 Normal (applies to non-numeric results) [facility] ([facility] Total Protein 6.0 GM/DL 6.4-8.2 Below low normal MEDEN T ([facility] Spep Interpretation Laboratory test result Sahra l (applies to non-numeric results) [facility] ([facility] NO M-SPIKE(S)NOTED. Laboratory test finding (navigational concept) Laboratory test r esult Normal (applies to non-numeric results) [facility] ID Date Data Source [id number] 07/02/2020 09:29:00 AM EST [facility] ([facility] Name Value Range Interpretation Code Description Data Tyesha rce(s) Supporting Document(s) It Serum Interpretation Laboratory test result N ormal (applies to non-numeric results) [facility] ([facility] ) NO MONOCLONAL BANDS NOTED. Laboratory test finding (navigational concept) Laboratory test r esult Normal (applies to non-numeric results) [facility] ID Date Data Source [id number] 07/02/2020 09:29:00 AM EST [facility] ([facility] Name Value Range Interpretation Code Description Data Tyesha rce(s) Supporting Document(s) Glucose, Fasting 120 mg/dL 70-100 Above high normal M EDENT ([facility] Glomerular Filtration Rate 25.6 Below low normal [facility] ([facility] <content>Units are mL/min/1.73 m2</content>
<content></content>
<content>Chronic Kidney Disease Staging per NKF:</content>
<content></content>
<content>Stage I & II GFR >=60 Normal to Mildly Decreased</content>
<content>Stage III GFR 30- 59 Moderately Decreased</content>
<content>Stage IV GFR 15-29 Severely Decreased</content>
<content>Stage V GFR <15 Very Little GFR Left</content>
<content>ESRD GFR <15 on CAGE TENDER</content>
<content></content> Creatinine For GFR 2.62 mg/dL 0.70-1.30 Above high normal [facility] ([facility] Blood Urea Nitrogen 37 mg/dL 7-18 Above high normal [facility] ([facility] Sodium Level 139 meq/L 136-145 Normal (applies to non-numeric res ults) [facility] ([facility] Potassium Serum 4.7 meq/L 3.5-5.1 Normal (applies to non-numeric results) [facility] ([facility] Anion Gap 7 meq/L 8-16 Below low normal [facility] ( [facility] Chloride Level 109 meq/L 98-107 Above high normal MED ENT ([facility] Carbon Dioxide Level 23 [...] Normal (applies to non-numeric re sults) [facility] ([facility] Alkaline Phosphatase 64 U/L 45-117 Normal (applies to non-num zana results) [facility] ([facility] Bilirubin,Total 0.4 mg/dL 0.2-1.0 Normal (applies to non-numeric results) [facility] ([facility] Albumin 3.2 GM/DL 3.2-5.2 Normal (applies to non-numeric resul ts) [facility] ([facility] Albumin/Globulin Ratio 0.9 Normal (applies to non-n umeric results) [facility] ([facility] ID Date Data Source [id number] 07/02/2020 09:29:00 AM EST [facility] ([facility] Name Value Range Interpretation [...] % 42.0-52.0 Below low normal [facility] ( [facility] Mean Corpuscular HGB Conc 30.5 g/dL 32.0-36.5 Below low normal [facility] ([facility] Red Cell Distribution Width 17.9 % 11.5-14.5 Above high normal [facility] ([facility] Platelet Count, Automated 201 10 150-450 Normal (applies to non-numeric results) [facility] ([facility] ) Neutrophils % 54.5 % 36.0-66.0 Normal (applies to non-numeric re sults) [facility] ([facility] Lymph % 20.1 % 24.0-44.0 Below low normal [facility] ( [facility] Kemper % 20.3 % 0.0-5.0 Above high normal [facility] ([facility] Eos % 2.5 % 0.0-3.0 Normal (applies to non-numeric resul ts) [facility] ([facility] Baso % 1.8 % 0.0-1.0 Above high normal [facility] ([facility] Nucleated Red Blood Cell % 0.0 % 0-0 Normal (applies to n on-numeric results) [facility] ([facility] Immature Granulocyte % 0.8 % 0-3.0 Normal (applies to non-n umeric results) [facility] ([facility] Lymph # 1.0 10 1.5-5.0 Below low normal [facility] ( [facility] Neutrophils # 2.7 10 1.5-8.5 Normal (applies to non-numeric re sults) [facility] ([facility] Kemper # 1.0 10 0.0-0.8 Above high normal [facility] ([facility] Eos # 0.1 10 0.0-0.5 Normal (applies to non-numeric resul ts) [facility] ([facility] Baso # 0.1 10 0.0-0.2 Normal (applies to non-numeric resul ts) [facility] ([facility] ID Date Data Source [id number] 06/04/2020 09:16:00 AM EDT [facility] ([facility] Name Value Range Interpretation Code Description Data Tyesha rce(s) Supporting Document(s) Free Lambda Light Chains Serum 26.0 mg/L 5.7-26.3 N ormal (applies to non-numeric results) [facility] ([facility] ) Free [place] Light Chains Serum 46.5 mg/L 3.3-19.4 Above high normal [facility] ([facility] [place]/Lambda Ratio Serum 1.79 0.26-1.65 Above high normal [facility] ([facility] ID Date Data Source [id number] 06/04/2020 09:16:00 AM EDT [facility] ([facility] Name Value Range Interpretation Code Description Data Tyesha rce(s) Supporting Document(s) Kdvv-0-Lgyaissngzaxw [Mass/volume] in Serum or Plasma 4.4 mg/L 0.6-2.4 Above high normal [facility] ([facility] ) Siemens Immulite 2000 Immunochemiluminom etric assay (ICMA) . Values obtained with different assay methods or kits cannot be used interchangeably. Results cannot be interpreted as absolute evidence of the presence or absence of malignant disease. Performed at: - [facility] [id number] Iv Rn: Mercedes Giron MD, Phone: [phone] Performed at: [facility] [id number] Iv Rn: Dario Pisano MD, Phone: [phone] ID Date Data Source [id number] 06/04/2020 09:16:00 AM EDT [facility] ([facility] Name Value Range Interpretation Code Description Data Tyesha rce(s) Supporting Document(s) Xckdp-8-Kkbquusru % 15.1 % 7.1-11.8 Above high normal [facility] ([facility] Albumin % 56.3 % 55.8-66.1 Normal (applies to non-numeric resul ts) [facility] ([facility] Idisd-9-Juzbxjib % 6.5 % 2.9-4.9 Above high normal [facility] ([facility] Lbhm-3-Mompfihsh % 5.4 % 3.2-6.5 Normal (applies to non-numer ic results) [facility] ([facility] Wess-9-Wsodpnzut % 6.3 % 4.7-7.2 Normal (applies to non-numer ic results) [facility] ([facility] Gamma Globulin % 10.4 % 11.1-18.8 Below low normal ME DENT ([facility] Amdow-8-Vyxqbwcwn 0.94 GM/DL 0.42-0.99 Normal (applies to non- numeric results) [facility] ([facility] Albumin 3.49 GM/DL 3.29-5.55 Normal (applies to non-numeric resul ts) [facility] ([facility] Jymxb-5-Heluaskst 0.40 GM/DL 0.17-0.41 Normal (applies to non- numeric results) [facility] ([facility] Gamma Globulins 0.64 GM/DL 0.65-1.58 Below low normal MED E[facility] ([facility] Czsk-0-Dtjcaxidx 0.33 GM/DL 0.19-0.55 Normal (applies to non-numeric results) [facility] ([facility] Ikcy-4-Ynixciltn 0.39 GM/DL 0.28-0.60 Normal (applies to non-numeric results) [facility] ([facility] Total Protein 6.2 GM/DL 6.4-8.2 Below low normal MEDEN T ([facility] Spep Interpretation Laboratory test result Sahra l (applies to non-numeric results) [facility] ([facility] ) HYPOGAMMAGLOBULINEMIA. SUGGEST SERUM AND URINE IMMUNOTYPING. Laboratory test finding (navigational concept) Laboratory test r esult Normal (applies to non-numeric results) [facility] ([facility] REV'D BY Edilson FARNSWORTH ID Date Data Source [id number] 06/04/2020 09:16:00 AM EDT [facility] ([facility] Name Value Range Interpretation Code Description Data Tyesha rce(s) Supporting Document(s) Immunoglobulin A 147.0 mg/dL 70-400 Normal (applies to non-numeri c results) [facility] ([facility] Immunoglobulin G 611 mg/dL [id number] Below low normal [facility] ([facility] Immunoglobulin M 24.4 mg/dL 40-230 Below low normal [facility] ([facility] ID Date Data Source [id number] 06/04/2020 09:16:00 AM EDT [facility] ([facility] Name Value Range Interpretation Code Description Data Tyesha rce(s) Supporting Document(s) Lactate dehydrogenase [Enzymatic activity/volume] in Serum o r Plasma 178 U/L 87-241 Normal (applies to non-numeric results) [facility] ([facility] ID Date Data Source [id number] 06/04/2020 09:16:00 AM EDT [facility] ([facility] Name Value Range Interpretation Code Description Data Tyesha rce(s) Supporting Document(s) Glucose, Fasting 140 mg/dL 70-100 Above high normal M EDENT ([facility] Blood Urea Nitrogen 28 mg/dL 7-18 Above high normal [facility] ([facility] Creatinine For GFR 2.11 mg/dL 0.70-1.30 Above high normal [facility] ([facility] Glomerular Filtration Rate 32.8 Below low normal [facility] ([facility] <content>Units are mL/min/1.73 m2</content>
<content></content>
<content>Chronic Kidney Disease Staging per NKF:</content>
<content></content>
<content>Stage I & II GFR >=60 Normal to Mildly Decreased</content>
<content>Stage III GFR 30-59 Moderately Decreased</content>
<content>Stage IV GFR 15-29 Severely Decreased</content>
<content>Stage V GFR <15 Very Little GFR Left</content>
<content>ESRD GFR <15 on CAGE TENDER</content>
<content></content> Sodium Level 141 meq/L 136-145 Normal (applies to non-numeric res ults) [facility] ([facility] Carbon Dioxide Level 23 meq/L 21-32 Normal (applies to non-num zana results) [facility] ([facility] Potassium Serum 4.2 meq/L 3.5-5.1 Normal (applies to non-numeric results) [facility] ([facility] Chloride Level 110 meq/L 98-107 Above high normal MED ENT ([facility] Calcium Level 8.9 mg/dL 8.8-10.2 Normal (applies to non-numeric re sults) [facility] ([facility] Ast/Sgot 12 U/L 7-37 Normal (applies to non-numeric resul ts) [facility] ([facility] Anion Gap 8 meq/L 8-16 Normal (applies to non-numeric resul ts) [facility] ([facility] Bilirubin,Total 0.3 mg/dL 0.2-1.0 Normal (applies to non-numeric results) [facility] ([facility] Alt/SGPT 19 U/L 12-78 Normal (applies to non-numeric resul ts) [facility] ([facility] Alkaline Phosphatase 63 U/L 45-117 Normal (applies to non-num zana results) [facility] ([facility] Total Protein 6.7 GM/DL 6.4-8.2 Normal (applies to non-numeric re sults) [facility] ([facility] Albumin 3.0 GM/DL 3.2-5.2 Below low normal MED[facility] ( [facility] Albumin/Globulin Ratio 0.8 Normal (applies to non-n umeric results) [facility] ([facility] ID Date Data Source [id number] 06/04/2020 09:16:00 AM EDT MED[facility] ([facility] Name Value Range Interpretation Code Description Data Tyesha rce(s) Supporting Document(s) White Blood Count 5.1 10 4.0-10.0 Normal (applies to non-numeri c results) [facility] ([facility] Hematocrit 36.4 % 42.0-52.0 Below low normal MED[facility] ( [facility] Red Blood Count 3.77 10 4.30-6.10 Below low normal MED ENT ([facility] Hemoglobin 11.2 g/dL 13.5-17.5 Below low normal [facility] ( [facility] Mean Corpuscular Hemoglobin 29.7 pg 27.0-33.0 Norm al (applies to non-numeric results) [facility] ([facility] ) Mean Corpuscular Volume 96.6 fl 80.0-96.0 Above high normal [facility] ([facility] Mean Corpuscular HGB Conc 30.8 g/dL 32.0-36.5 Below low normal [facility] ([facility] Platelet Count, Automated 175 10 150-450 Normal (applies to non-numeric results) [facility] ([facility] ) Red Cell Distribution Width 17.9 % 11.5-14.5 Above high normal [facility] ([facility] Kemper % 16.9 % 0.0-5.0 Above high normal [facility] ([facility] Neutrophils % 54.8 % 36.0-66.0 Normal (applies to non-numeric re sults) [facility] ([facility] Lymph % 21.0 % 24.0-44.0 Below low normal [facility] ( [facility] Baso % 1.6 % 0.0-1.0 Above high normal [facility] ([facility] Immature Granulocyte % 0.8 % 0-3.0 Normal (applies to non-n umeric results) [facility] ([facility] Eos % 4.9 % 0.0-3.0 Above high normal [facility] ([facility] Neutrophils # 2.8 10 1.5-8.5 Normal (applies to non-numeric re sults) [facility] ([facility] Nucleated Red Blood Cell % 0.0 % 0-0 Normal (applies to n on-numeric results) [facility] ([facility] Lymph # 1.1 10 1.5-5.0 Below low normal [facility] ( [facility] Kemper # 0.9 10 0.0-0.8 Above high normal [facility] ([facility] Baso # 0.1 10 0.0-0.2 Normal (applies to non-numeric resul ts) [facility] ([facility] Eos # 0.3 10 0.0-0.5 Normal (applies to non-numeric resul ts) [facility] ([facility] ID Date Data Source [id number] 05/06/2020 08:25:00 AM EDT MED[facility] ([facility] Name Value Range Interpretation Code Description Data Tyesha rce(s) Supporting Document(s) White Blood Count 5.8 10 4.0-10.0 Normal (applies to non-numeri c results) [facility] ([facility] Red Blood Count 3.79 10 4.30-6.10 Below low normal MED ENT ([facility] Hematocrit 37.3 % 42.0-52.0 Below low normal MED[facility] ( [facility] Hemoglobin 11.4 g/dL 13.5-17.5 Below low normal MED[facility] ( [facility] Mean Corpuscular Volume 98.4 fl 80.0-96.0 Above high normal [facility] ([facility] Mean Corpuscular HGB Conc 30.6 g/dL 32.0-36.5 Below low normal [facility] ([facility] Red Cell Distribution Width 18.0 % 11.5-14.5 Above high normal [facility] ([facility] Mean Corpuscular Hemoglobin 30.1 pg 27.0-33.0 Norm al (applies to non-numeric results) [facility] ([facility] ) Neutrophils % 56.6 % 36.0-66.0 Normal (applies to non-numeric re sults) [facility] ([facility] Lymph % 18.6 % 24.0-44.0 Below low normal [facility] ( [facility] Platelet Count, Automated 176 10 150-450 Normal (applies to non-numeric results) [facility] ([facility] ) Kemper % 20.2 % 0.0-5.0 Above high normal [...] umeric results) [facility] ([facility] Kemper # 1.2 10 0.0-0.8 Above high normal [facility] ([facility] Lymph # 1.1 10 1.5-5.0 Below low normal [facility] ( [facility] Eos # 0.1 10 0.0-0.5 Normal (applies to non-numeric resul ts) [facility] ([facility] Baso # 0.1 10 0.0-0.2 Normal (applies to non-numeric resul ts) [facility] ([facility] ID Date Data Source [id number] 05/06/2020 08:25:00 AM EDT MED[facility] ([facility] Name Value Range Interpretation [...] Little GFR Left</content>
<content>ESRD GFR <15 on CAGE TENDER</content>
<content></content> Sodium Level 142 meq/L 136-145 Normal (applies to non-numeric res ults) [facility] ([facility] Carbon Dioxide Level 22 [...] Normal (applies to non-n umeric results) [facility] ([facility] Total Protein 6.4 GM/DL 6.4-8.2 Normal (applies to non-numeric re sults) [facility] ([facility] ID Date Data Source [id number] 05/06/2020 08:25:00 AM EDT MED[facility] ([facility] Name Value Range Interpretation Code Description Data Tyesha rce(s) Supporting Document(s) Immunoglobulin G 681 mg/dL 681-1648 Normal (applies to non-numeric results) [facility] ([facility] Immunoglobulin A 184.0 mg/dL 70-400 Normal (applies to non-numeri c results) [facility] ([facility] Immunoglobulin M 25.1 mg/dL 40-230 Below low normal [facility] ([facility] ID Date Data Source [id number] 05/06/2020 08:25:00 AM EDT MED[facility] ([facility] Name Value Range Interpretation Code Description Data Tyesha rce(s) Supporting Document(s) Free Lambda Light Chains Serum 24.8 mg/L 5.7-26.3 N ormal (applies to non-numeric results) [facility] ([facility] ) Free [place] Light Chains Serum 51.4 mg/L 3.3-19.4 Above high normal [facility] ([facility] [place]/Lambda Ratio Serum 2.07 0.26-1.65 Above high normal [facility] ([facility] Performed at: RN - [facility] [address] [id number] Iv Rn: Mercedes Giron MD, Phone: [phone] ID Date Data Source [id number] 04/05/2020 05:05:00 PM EDT [facility] Name Value Range Interpretation Code Description Data Tyesha rce(s) Supporting Document(s) Free [place] Lt Chains,S 59.3 mg/L 3.3-19.4 Above high normal [facility] Free Lambda Lt Chains,S 32.2 mg/L 5.7-26.3 Above high normal [facility] [place]/Lambda Ratio,S 1.84 0.26-1.65 Above high normal [facility] ID Date Data Source [id number] 04/04/2020 09:00:00 AM EDT MED[facility] ([facility] Name Value Range Interpretation Code Description Data Tyesha rce(s) Supporting Document(s) Albumin % 54.8 % 55.8-66.1 Below low normal [facility] ( [facility] Fuik-3-Sxvliaush % 6.6 % 4.7-7.2 Normal (applies to non-numer ic results) [facility] ([facility] Smbbt-3-Lakjdccs % 6.5 % 2.9-4.9 Above high normal [facility] ([facility] Siynx-9-Xrdlwtynp % 15.2 % 7.1-11.8 Above high normal [facility] ([facility] Gamma Globulin % 11.1 % 11.1-18.8 Normal (applies to non-numeric results) [facility] ([facility] Albumin 3.29 GM/DL 3.29-5.55 Normal (applies to non-numeric resul ts) [facility] ([facility] Mkai-7-Lhtyvhfwx % 5.8 % 3.2-6.5 Normal (applies to non-numer ic results) [facility] ([facility] Nhlnh-7-Vnlfmqlnk 0.39 GM/DL 0.17-0.41 Normal (applies to non- numeric results) [facility] ([facility] Wmdqq-1-Vpzidunup 0.91 GM/DL 0.42-0.99 Normal (applies to non- numeric results) [facility] ([facility] Qgmm-0-Kyshuodwr 0.40 GM/DL 0.28-0.60 Normal (applies to non-numeric results) [facility] ([facility] Gamma Globulins 0.67 GM/DL 0.65-1.58 Normal (applies to non-numeric results) [facility] ([facility] Total Protein 6.0 GM/DL 6.4-8.2 Below low normal MEDEN T ([facility] Oxkq-5-Gaustppek 0.35 GM/DL 0.19-0.55 Normal (applies to non-numeric results) MED[facility] ([facility] Spep Interpretation Laboratory test result Sahra l (applies to non-numeric results) [facility] ([facility] ) M-SPIKE NOTED IN LATE GAMMA REGION. CONCENTRATION = 0.12 GM/DL Laboratory test finding (navigational concept) Laboratory test r esult Normal (applies to non-numeric results) [facility] ([facility] REV'D BY Annika BANGONG ID Date Data Source [id number] 04/04/2020 09:00:00 AM EDT MED[facility] ([facility] Name Value Range Interpretation Code Description Data Tyesha rce(s) Supporting Document(s) Blood Urea Nitrogen 28 mg/dL 7-18 Above high normal [facility] ([facility] Creatinine For GFR 2.06 mg/dL 0.70-1.30 Above high normal [facility] ([facility] Glucose, Fasting 124 mg/dL 70-100 Above high normal M EDENT ([facility] Sodium Level 141 meq/L 136-145 Normal (applies to non-numeric res ults) [facility] ([facility] Potassium Serum 4.6 meq/L 3.5-5.1 Normal (applies to non-numeric results) [facility] ([facility] Glomerular Filtration Rate 33.8 Below low normal [facility] ([facility] <content>Units are mL/min/1.73 m2</content>
<content></content>
<content>Chronic Kidney Disease Staging per NKF:</content>
<content></content>
<content>Stage I & II GFR >=60 Normal to Mildly Decreased</content>
<content>Stage III GFR 30-59 Moderately Decreased</content>
<content>Stage IV GFR 15-29 Severely Decreased</content>
<content>Stage V GFR <15 Very Little GFR Left</content>
<content>ESRD GFR <15 on CAGE TENDER</content>
<content></content> Carbon Dioxide Level 24 meq/L 21-32 Normal (applies to non-num zana results) [facility] ([facility] Anion Gap 6 meq/L 8-16 Below low normal [facility] ( [facility] Chloride Level 111 meq/L 98-107 Above high normal MED ENT ([facility] Alt/SGPT 19 U/L 12-78 Normal (applies to non-numeric resul ts) [facility] ([facility] Calcium Level 9.0 mg/dL 8.8-10.2 Normal (applies to non-numeric re sults) [facility] ([facility] Ast/Sgot 13 U/L 7-37 Normal (applies to non-numeric resul ts) [facility] ([facility] Bilirubin,Total 0.4 mg/dL 0.2-1.0 Normal (applies to non-numeric results) [facility] ([facility] Alkaline Phosphatase 69 U/L 45-117 Normal (applies to non-num zana results) [facility] ([facility] Total Protein 6.5 GM/DL 6.4-8.2 Normal (applies to non-numeric re sults) [facility] ([facility] Albumin 2.9 GM/DL 3.2-5.2 Below low normal [facility] ( [facility] Albumin/Globulin Ratio 0.8 Normal (applies to non-n umeric results) [facility] ([facility] ID Date Data Source [id number] 04/04/2020 09:00:00 AM EDT MED[facility] ([facility] Name Value Range Interpretation Code Description Data Tyesha rce(s) Supporting Document(s) Free [place] Light Chains Serum Laboratory test result Normal (applies to non- numeric results) [facility] ([facility] ) SEE SEPARATE REPORT Testing performed at reference lab . Report copy to follow on a separate form. 05/12/20 REF LAB#:[id number] Free Lambda Light Chains Serum Laboratory test result Normal (applies to non- numeric results) [facility] ([facility] ) SEE SEPARATE REPORT [place]/Lambda Ratio Serum Laboratory test result Normal (applies to non-numeric results) [facility] ([facility] ) SEE SEPARATE REPORT ID Date Data Source [id number] 04/04/2020 09:00:00 AM EDT MED[facility] ([facility] Name Value Range Interpretation Code Description Data Tyesha rce(s) Supporting Document(s) Red Blood Count 3.35 10 4.30-6.10 Below low normal MED ENT ([facility] White Blood Count 4.0 10 4.0-10.0 Normal (applies to non-numeri c results) [facility] ([facility] Hemoglobin 10.2 g/dL 13.5-17.5 Below low normal [facility] ( [facility] Hematocrit 32.4 % 42.0-52.0 Below low normal MED[facility] ( [facility] Mean Corpuscular Hemoglobin 30.4 [...] resul ts) [facility] ([facility] Kemper % 21.3 % 0.0-5.0 Above high normal [facility] ([facility] Baso % 1.8 % 0.0-1.0 Above high normal [facility] ([facility] Immature Granulocyte % 0.3 [...] resul ts) [facility] ([facility] Kemper # 0.9 10 0.0-0.8 Above high normal [facility] ([facility] Baso # 0.1 10 0.0-0.2 Normal (applies to non-numeric resul ts) [facility] ([facility] ID Date Data Source [id number] 03/07/2020 07:56:00 AM EDT [facility] ([facility] Name Value Range Interpretation Code Description Data Tyesha rce(s) Supporting Document(s) Sksua-7-Nvdusywv % 6.9 % 2.9-4.9 Above high normal [facility] ([facility] Albumin % 56.2 % 55.8-66.1 Normal (applies to non-numeric resul ts) [facility] ([facility] Nnvac-9-Ozwktwndb % 16.9 % 7.1-11.8 Above high normal [facility] ([facility] Nrml-9-Qgipmomma % 6.2 % 4.7-7.2 Normal (applies to non-numer ic results) [facility] ([facility] Gamma Globulin % 8.3 % 11.1-18.8 Below low normal ME [facility] ([facility] Albumin 3.20 GM/DL 3.29-5.55 Below low normal [facility] ( [facility] Apdl-7-Xfhsclulu % 5.5 % 3.2-6.5 Normal (applies to non-numer ic results) [facility] ([facility] Jhzve-8-Xvpdfpxog 0.39 GM/DL 0.17-0.41 Normal (applies to non- numeric results) [facility] ([facility] Axwyo-0-Uankzlppa 0.96 GM/DL 0.42-0.99 Normal (applies to non- numeric results) [facility] ([facility] Iysd-5-Fugqnuchx 0.31 GM/DL 0.19-0.55 Normal (applies to non-numeric results) [facility] ([facility] Joxs-6-Guilyuzjb 0.35 GM/DL 0.28-0.60 Normal (applies to non-numeric results) [facility] ([facility] Gamma Globulins 0.47 GM/DL 0.65-1.58 Below low normal MED ENT ([facility] Spep Interpretation Laboratory test result Sahra l (applies to non-numeric results) [facility] ([facility] ) M-SPIKE NOTED IN LATE GAMMA REGION. CONCENTRATION = 0.11 GM/DL Total Protein 5.7 GM/DL 6.4-8.2 Below low normal MEDEN T ([facility] Laboratory test finding (navigational concept) Laboratory test r esult Normal (applies to non-numeric results) [facility] ([facility] REV'D BY Edilson FARNSWORTH ID Date Data Source [id number] 03/07/2020 07:56:00 AM EDT MED[facility] ([facility] Name Value Range Interpretation Code Description Data Tyesha rce(s) Supporting Document(s) Free [place] Light Chains Serum 26.9 mg/L 3.3-19.4 Above high normal [facility] ([facility] [place]/Lambda Ratio Serum 1.65 0.26-1.65 Normal (applies to non-numeric results) [facility] ([facility] ) Performed at: RN - [facility] [address] [id number] Iv Rn: Mercedes Giron MD, Phone: [phone] Free Lambda Light Chains Serum 16.3 mg/L 5.7-26.3 N ormal (applies to non-numeric results) [facility] ([facility] ) ID Date Data Source [id number] 03/07/2020 07:56:00 AM EDT MED[facility] ([facility] Name Value Range Interpretation Code Description Data Tyesha rce(s) Supporting Document(s) Glucose, Fasting 148 mg/dL 70-100 Above high normal M EDENT ([facility] Blood Urea Nitrogen 23 mg/dL 7-18 Above high normal [facility] ([facility] Sodium Level 142 meq/L 136-145 Normal (applies to non-numeric res ults) [facility] ([facility] Glomerular Filtration Rate 37.6 Below low normal [facility] ([facility] <content>Units are mL/min/1.73 m2</content>
<content></content>
<content>Chronic Kidney Disease Staging per NKF:</content>
<content></content>
<content>Stage I & II GFR >=60 Normal to Mildly Decreased</content>
<content>Stage III GFR 30-59 Moderately Decreased</content>
<content>Stage IV GFR 15-29 Severely Decreased</content>
<content>Stage V GFR <15 Very Little GFR Left</content>
<content>ESRD GFR <15 on CAGE TENDER</content>
<content></content> Creatinine For GFR 1.88 mg/dL 0.70-1.30 Above high normal [facility] ([facility] Chloride Level 112 meq/L 98-107 Above high normal MED ENT ([facility] Carbon Dioxide Level 22 meq/L 21-32 Normal (applies to non-num zana results) [facility] ([facility] Potassium Serum 4.4 meq/L 3.5-5.1 Normal (applies to non-numeric results) [facility] ([facility] Anion Gap 8 meq/L 8-16 Normal (applies to non-numeric resul ts) [facility] ([facility] Calcium Level 8.7 mg/dL 8.8-10.2 Below low normal MEDEN T ([facility] Ast/Sgot 9 U/L 7-37 Normal (applies to non-numeric resul ts) [facility] ([facility] Alkaline Phosphatase 82 U/L 45-117 Normal (applies to non-num zana results) [facility] ([facility] Alt/SGPT 18 U/L 12-78 Normal (applies to non-numeric resul ts) [facility] ([facility] Bilirubin,Total 0.3 mg/dL 0.2-1.0 Normal (applies to non-numeric results) [facility] ([facility] Total Protein 6.3 GM/DL 6.4-8.2 Below low normal MEDEN T ([facility] Albumin 2.9 GM/DL 3.2-5.2 Below low normal [facility] ( [facility] Albumin/Globulin Ratio 0.9 Normal (applies to non-n umeric results) [facility] ([facility] [facility] ID Date Data Source [id number] 03/07/2020 07:56:00 AM EDT [facility] ([facility] Name Value Range Interpretation Code Description Data Tyesha rce(s) Supporting Document(s) Red Blood Count 3.46 10 4.30-6.10 Below low normal MED E[facility] ([facility] White Blood Count 4.4 10 4.0-10.0 Normal (applies to non-numeri c results) [facility] ([facility] Hemoglobin 10.6 g/dL 13.5-17.5 Below low normal [facility] ( [facility] Mean Corpuscular Volume 98.0 fl 80.0-96.0 Above high normal [facility] ([facility] Hematocrit 33.9 % 42.0-52.0 Below low normal [facility] ( [facility] Mean Corpuscular Hemoglobin 30.6 pg 27.0-33.0 Norm al (applies to non-numeric results) [facility] ([facility] ) Mean Corpuscular HGB Conc 31.3 g/dL 32.0-36.5 Below low normal [facility] ([facility] Platelet Count, Automated 149 10 150-450 Below low normal [facility] ([facility] Red Cell Distribution Width 17.5 % 11.5-14.5 Above high normal [facility] ([facility] Lymph % 24.1 % 24.0-44.0 Normal (applies to non-numeric resul ts) [facility] ([facility] Neutrophils % 58.9 % 36.0-66.0 Normal (applies to non-numeric re sults) [facility] ([facility] Kemper % 13.7 % 0.0-5.0 Above high normal [facility] ([facility] Eos % 2.0 % 0.0-3.0 Normal (applies to non-numeric resul ts) [facility] ([facility] Immature Granulocyte % 0.2 % 0-3.0 Normal (applies to non-n umeric results) [facility] ([facility] Baso % 1.1 % 0.0-1.0 Above high normal [facility] ([facility] Lymph # 1.1 10 1.5-5.0 Below low normal [facility] ( [facility] Neutrophils # 2.6 10 1.5-8.5 Normal (applies to non-numeric re sults) [facility] ([facility] Nucleated Red Blood Cell % 0.0 % 0-0 Normal (applies to n on-numeric results) [facility] ([facility] Eos # 0.1 10 0.0-0.5 Normal (applies to non-numeric resul ts) [facility] ([facility] Kemper # 0.6 10 0.0-0.8 Normal (applies to non-numeric resul ts) [facility] ([facility] Baso # 0.1 10 0.0-0.2 Normal (applies to non-numeric resul ts) [facility] ([facility] ID Date Data Source [id number] 02/22/2020 08:26:00 AM EDT [facility] ([facility] Name Value Range Interpretation Code Description Data Tyesha rce(s) Supporting Document(s) Glucose, Fasting 186 mg/dL 70-100 Above high normal M EDENT ([facility] Blood Urea Nitrogen 27 mg/dL 7-18 Above high normal [facility] ([facility] Creatinine For GFR 2.01 mg/dL 0.70-1.30 Above high normal [facility] ([facility] Glomerular Filtration Rate 34.8 Below low normal [facility] ([facility] <content>Units are mL/min/1.73 m2</content>
<content></content>
<content>Chronic Kidney Disease Staging per NKF:</content>
<content></content>
<content>Stage I & II GFR >=60 Normal to Mildly Decreased</content>
<content>Stage III GFR 30-59 Moderately Decreased</content>
<content>Stage IV GFR 15-29 Severely Decreased</content>
<content>Stage V GFR <15 Very Little GFR Left</content>
<content>ESRD GFR <15 on CAGE TENDER</content>
<content></content> Sodium Level 141 meq/L 136-145 Normal (applies to non-numeric res ults) [facility] ([facility] Potassium Serum 4.3 meq/L 3.5-5.1 Normal (applies to non-numeric results) [facility] ([facility] Chloride Level 110 meq/L 98-107 Above high normal MED ENT ([facility] Carbon Dioxide Level 23 [...] Normal (applies to non-numeric resul ts) [facility] ([facility] Alkaline Phosphatase 74 U/L 45-117 Normal (applies to non-num zana results) [facility] ([facility] Bilirubin,Total 0.4 mg/dL 0.2-1.0 Normal (applies to non-numeric results) [facility] ([facility] Total Protein 6.2 GM/DL 6.4-8.2 Below low normal MEDEN T ([facility] Albumin 2.7 GM/DL 3.2-5.2 Below low normal [facility] ( [facility] Albumin/Globulin Ratio 0.8 Normal (applies to non-n umeric results) [facility] ([facility] ID Date Data Source [id number] 02/22/2020 08:26:00 AM EDT [facility] ([facility] Name Value Range Interpretation [...] 99.4 fl 80.0-96.0 Above high normal [facility] ([facility] Hematocrit 34.0 % 42.0-52.0 Below low normal [facility] ( [facility] Mean Corpuscular HGB Conc 31.2 g/dL 32.0-36.5 Below low normal [facility] ([facility] Red Cell Distribution Width 16.8 % 11.5-14.5 Above high normal [facility] ([facility] Neutrophils % 64.6 % 36.0-66.0 Normal (applies to non-numeric re sults) [facility] ([facility] Lymph % 14.8 % 24.0-44.0 Below low normal [facility] ( [facility] Platelet Count, Automated 139 10 150-450 Below low normal [facility] ([facility] Eos % 2.1 % 0.0-3.0 Normal (applies to non-numeric resul ts) [facility] ([facility] Kemper % 17.9 % 0.0-5.0 Above high normal [facility] ([facility] Baso % 0.3 % 0.0-1.0 Normal (applies to non-numeric resul ts) [facility] ([facility] Neutrophils # 3.8 10 1.5-8.5 Normal (applies to non-numeric re sults) [facility] ([facility] Nucleated Red Blood Cell % 0.0 % 0-0 Normal (applies to n on-numeric results) [facility] ([facility] Immature Granulocyte % 0.3 % 0-3.0 Normal (applies to non-n umeric results) [facility] ([facility] Eos # 0.1 10 0.0-0.5 Normal (applies to non-numeric resul ts) [facility] ([facility] Kemper # 1.0 10 0.0-0.8 Above high normal [facility] ([facility] Lymph # 0.9 10 1.5-5.0 Below low normal [facility] ( [facility] Baso # 0.0 10 0.0-0.2 Normal (applies to non-numeric resul ts) [facility] ([facility] ID Date Data Source [id number] 02/09/2020 08:28:00 AM EDT [facility] ([facility] Name Value Range Interpretation Code Description Data Tyesha rce(s) Supporting Document(s) Glucose, Fasting 106 mg/dL 70-100 Above high normal M EDENT ([facility] Glomerular Filtration Rate 32.1 Below low normal [facility] ([facility] <content>Units are mL/min/1.73 m2</content>
<content></content>
<content>Chronic Kidney Disease Staging per NKF:</content>
<content></content>
<content>Stage I & II GFR >=60 Normal to Mildly Decreased</content>
<content>Stage III GFR 30-59 Moderately Decreased</content>
<content>Stage IV GFR 15-29 Severely Decreased</content>
<content>Stage V GFR <15 Very Little GFR Left</content>
<content>ESRD GFR <15 on CAGE TENDER</content>
<content></content> Creatinine For GFR 2.16 mg/dL 0.70-1.30 Above high normal [facility] ([facility] Blood Urea Nitrogen 34 mg/dL 7-18 Above high normal [facility] ([facility] Sodium Level 141 meq/L 136-145 Normal (applies to non-numeric res ults) [facility] ([facility] Potassium Serum 4.6 meq/L 3.5-5.1 Normal (applies to non-numeric results) [facility] ([facility] Carbon Dioxide Level 23 meq/L 21-32 Normal (applies to non-num zana results) [facility] ([facility] Anion Gap 7 meq/L 8-16 Below low normal [facility] ( [facility] Chloride Level 111 meq/L [...] 0.2-1.0 Normal (applies to non-numeric results) [facility] ([facility] Alkaline Phosphatase 62 U/L 45-117 Normal (applies to non-num zana results) [facility] ([facility] Albumin/Globulin Ratio 0.8 Normal (applies to non-n umeric results) [facility] ([facility] Total Protein 6.4 GM/DL 6.4-8.2 Normal (applies to non-numeric re sults) [facility] ([facility] Albumin 2.9 GM/DL 3.2-5.2 Below low normal [facility] ( [facility] ID Date Data Source [id number] 02/09/2020 08:28:00 AM EDT [facility] ([facility] Name Value Range Interpretation Code Description Data Tyesha rce(s) Supporting Document(s) White Blood Count 5.5 10 4.0-10.0 Normal (applies to non-numeri c results) [facility] ([facility] Red Blood Count 3.49 10 4.30-6.10 Below low normal MED ENT ([facility] Hemoglobin 10.9 g/dL 13.5-17.5 Below low normal [facility] ( [facility] Hematocrit 34.7 % 42.0-52.0 Below low normal [facility] ( [facility] Mean Corpuscular Volume 99.4 fl 80.0-96.0 Above high normal [facility] ([facility] Mean Corpuscular Hemoglobin 31.2 pg 27.0-33.0 Norm al (applies to non-numeric results) [facility] ([facility] ) Mean Corpuscular HGB Conc 31.4 g/dL 32.0-36.5 Below low normal [facility] ([facility] Red Cell Distribution Width 17.2 % 11.5-14.5 Above high normal [facility] ([facility] Platelet Count, Automated 169 10 150-450 Normal (applies to non-numeric results) [facility] ([facility] ) Lymph % 16.8 % 24.0-44.0 Below low normal [facility] ( [facility] Neutrophils % 71.3 % 36.0-66.0 Above high normal MEDE NT ([facility] Kemper % 9.6 % 0.0-5.0 Above high normal [facility] ([facility] Baso % 0.5 % 0.0-1.0 Normal (applies to non-numeric resul ts) [facility] ([facility] Eos % 1.3 % 0.0-3.0 Normal (applies to non-numeric resul ts) [facility] ([facility] Nucleated Red Blood Cell % 0.0 % 0-0 Normal (applies to n on-numeric results) [facility] ([facility] Immature Granulocyte % 0.5 % 0-3.0 Normal (applies to non-n umeric results) [facility] ([facility] Neutrophils # 4.0 10 1.5-8.5 Normal (applies to non-numeric re sults) [facility] ([facility] Lymph # 0.9 10 1.5-5.0 Below low normal [facility] ( [facility] Kemper # 0.5 10 0.0-0.8 Normal (applies to non-numeric resul ts) [facility] ([facility] Eos # 0.1 10 0.0-0.5 Normal (applies to non-numeric resul ts) [facility] ([facility] Baso # 0.0 10 0.0-0.2 Normal (applies to non-numeric resul ts) [facility] ([facility] ID Date Data Source [id number] 08/11/2019 08:19:00 AM EST [facility] ([facility] Name Value Range Interpretation Code Description Data Tyesha rce(s) Supporting Document(s) Albumin [Mass/volume] in Serum or Plasma 2.9 [facility] ([facility]) Alanine aminotransferase [Enzymatic activity/volume] in Serum or Pl asma 20 [facility] ([facility]) Calcium [Mass/volume] in Serum or Plasma 8.3 [facility] ([facility]) Carbon dioxide, total [Moles/volume] in Serum or Plasma 20 [facility] ([facility]) Alkaline phosphatase [Enzymatic activity/volume] in Serum or Plasma 6 4 [facility] ([facility]) Chloride [Moles/volume] in Serum or Plasma 112 [facility] ([facility]) Sodium 140 [facility] ([facility] Protein [Mass/volume] in Serum or Plasma 7.6 [facility] ([facility]) Potassium [Moles/volume] in Serum or Plasma 4.5 [facility] ([facility]) Glucose 151 70-100 [facility] ([facility] Aspartate aminotransferase [Enzymatic activity/volume] in Serum or Plasma 14 [facility] ([facility]) Urea nitrogen [Mass/volume] in Serum or Plasma 38 [facility] ([facility]) Creatinine For GFR 2.14 [facility] ([facility]) ID Date Data Source [id number] 08/11/2019 08:19:00 AM EST [facility] ([facility] Name Value Range Interpretation Code Description Data Tyesha rce(s) Supporting Document(s) White Blood Count 3.4 4.0-10.0 [facility] ([facility]) Red Blood Count 3.46 4.30-6.10 [facility] ([facility]) Platelets 119 150-450 [facility] ([facility] Hematocrit 33.3 [facility] ([facility]) Hemoglobin 10.2 [facility] ([facility]) Procedure Social History Code Duration Value Status Description Data Source(s ) Smoking 04/24/2020 12:00:00 AM EDT Patient is a former smoker completed Patient is a former smoker [facility] ([facility], ) Smoking 04/15/2020 12:00:00 AM EDT Patient is a former smoker completed Patient is a former smoker [facility] ([facility] ) Smoking 03/29/2020 12:00:00 AM EDT Patient is a former smoker completed Patient is a former smoker [facility] ([facility]) Vital Signs ID Date Data Source UNK Name Value Range Interpretation Code Description Data Source(s) Oxygen saturation in Arterial blood by Pulse oximetry 97 % 97 % [facility] ([facility] Body mass index (BMI) [Ratio] 34.3 kg/m2 34.3 k g/m2 [facility] ([facility] Thomson body weight 178 [lb_av] 178 [lb_av] MEDEN T ([facility] Body weight 253.00 [lb_av] 253.00 [lb_av] [facility] T ([facility] Body height 72 [in_i] 72 [in_i] [facility] ([facility] 6'0" Respiratory rate 20 /min 20 /min [facility] ( [facility] Heart rate 68 /min 68 /min [facility] ([facility] Body temperature 97.2 [degF] 97.2 [degF] [facility] ([facility] Diastolic blood pressure 70 mm[Hg] 70 mm[Hg] [facility] ([facility] Systolic blood pressure 140 mm[Hg] 140 mm[Hg] M [facility]ENT ([facility] Body weight 114.761 kg 114.761 kg [facility] ([facility], ) Body mass index (BMI) [Ratio] 34.3 kg/m2 34.3 k g/m2 [facility] Body weight 253.00 [lb_av] 253.00 [lb_av] [facility]EN T ([facility]) pt states Body height 72 [in_i] 72 [in_i] [facility] ([facility]) 6'0" Body temperature 97.5 [degF] 97.5 [degF] [facility] Oxygen saturation in Arterial blood by Pulse oximetry 96 % 96 % [facility] ([facility], ) Heart rate 68 /min 68 /min [facility] ([facility]) Diastolic blood pressure 80 mm[Hg] 80 mm[Hg] [facility] ([facility], ) Systolic blood pressure 138 mm[Hg] 138 mm[Hg] M EDENT ([facility], ) Oxygen saturation in Arterial blood by Pulse oximetry 96 % 96 % [facility] ([facility] Body mass index (BMI) [Ratio] 34.2 kg/m2 34.2 k g/m2 [facility] ([facility] Thomson body weight 178 [lb_av] 178 [lb_av] [facility] T ([facility] Body weight 252.00 [lb_av] 252.00 [lb_av] [facility] T ([facility] Body height 72 [in_i] 72 [in_i] [facility] ([facility] 6'0" Respiratory rate 18 /min 18 /min [facility] ( [facility] Heart rate 72 /min 72 /min [facility] ([facility] Body temperature 98.1 [degF] 98.1 [degF] [facility] ([facility] Diastolic blood pressure 56 mm[Hg] 56 mm[Hg] [facility] ([facility] Systolic blood pressure 114 mm[Hg] 114 mm[Hg] M EDENT ([facility] Diastolic blood pressure--sitting 70 mm[Hg] 70 mm[Hg] [facility] ([facility]) Systolic blood pressure--sitting 122 mm[Hg] 122 mm[Hg] [facility] ([facility]) Body mass index (BMI) [Ratio] 30.7 kg/m2 30.7 k g/m2 [facility] ([facility]) Body height 76 [in_i] 76 [in_i] [facility] ([facility]) 6'4" Body weight 252.00 [lb_av] 252.00 [lb_av] [facility] T ([facility]) Diastolic blood pressure--sitting 60 mm[Hg] 60 mm[Hg] [facility] ([facility]) large cuff, Ra Systolic blood pressure--sitting 108 mm[Hg] 108 mm[Hg] [facility] ([facility]) large cuff, Ra Heart rate 66 /min 66 /min [facility] ([facility]) Body mass index (BMI) [Ratio] 27.8 kg/m2 27.8 k g/m2 [facility] ([facility]) Body height 76 [in_i] 76 [in_i] [facility] ([facility]) 6'4" Body weight 228.00 [lb_av] 228.00 [lb_av] [facility] T ([facility]) Body weight 104.782 kg 104.782 kg [facility] ([facility]) Body mass index (BMI) [Ratio] 31.3 kg/m2 31.3 k g/m2 [facility] ([facility]) Body weight 231.00 [lb_av] 231.00 [lb_av] [facility] T ([facility]) Body height 72 [in_i] 72 [in_i] [facility] ([facility]) 6'0" Oxygen saturation in Arterial blood by Pulse oximetry 97 % 97 % [facility] ([facility]) Heart rate 65 /min 65 /min [facility] ([facility], ) Diastolic blood pressure 64 mm[Hg] 64 mm[Hg] [facility] ([facility]) Systolic blood pressure 122 mm[Hg] 122 mm[Hg] Eddie ARCE ([facility], )
[2020-09-09 18:06] LABS: RSV AMPLIFICATION NEGATIVE (NEGATIVE)
--- NOTE | 2020-09-09 18:08 | RADENCPD ---
Date/Time of Encounter Date of Encounter: Sep 09, 2020 Time of Encounter: 17:52 Encounter Received call from Dr. Naqvi, noted findings of a new round 1.5 cm mass lesion in the left frontal lobe with extensive edema on CT head. 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 He is receiving decadron acutely, and has been for some time intermittently as part of his therapy for multiple myeloma. He also has a remote history of urothelial cancer. It would be highly irregular for myeloma to account for this solitary intra- axial mass lesion. The differential includes metastases from a synchronous solid malignancy or primary brain tumor or less likely infectious causes. I recommend a brain MRI with and without contrast now, and to continue him on IV decadron QID until neurological symptoms improve. I also recommend CT chest abdomen and pelvis to evaluate for solid organ involvement or synchronous malignancy. He has CKD so IVC may not be appropriate acutely, however even non-contrast enhanced scans would be helpful. I will see the patient and leave a formal consultation note with more detailed recommendations tomorrow morning. JORGE VEGA MD Sep 09, 2020 18:08
--- NOTE | 2020-09-09 18:13 | REP ---
INDICATION: pre-admission. COMPARISON: 08/11/2019 TECHNIQUE: Portable FINDINGS: The technique utilized in obtaining the radiograph has magnified the cardiac silhouette and attenuated the interstitial markings. There is cardiomegaly accentuated by technique. There is a dual chamber bipolar pacemaker device status quo. There is a central venous catheter in place the tip of which is unchanged from the prior exam again seen in the superior vena cava. Allowing for the differences in the technical factors between the examinations the lung t[place] appear unchanged. No acute patchy parenchymal opacities or pleural effusions seem to have developed. There is no significant change in appearance of the osseous structures. IMPRESSION: Cardiomegaly and chronic changes as described above without evidence of acute cardiopulmonary disease. <Electronically signed by James Del Toro > 09/09/20 [id number]
--- NOTE | 2020-09-09 20:03 | ECGEPIP ---
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
[2020-09-09 20:16] VITALS: BP 169/77
[2020-09-24] MEDS ORDERED: DECA4TAB PO (09:07)
[2020-09-24] MEDS ORDERED: NORV5TAB PO (09:07)
== END 2020-09-09 20:38 | disposition short-term general hospital (02) ==
LOC: M ED 15:26
DX: G93.9 Disorder of brain, unspecified (principal); R53.1 Weakness; R41.82 Altered mental status, unspecified; E78.5 Hyperlipidemia, unspecified; I10 Essential (primary) hypertension; Z79.82 Long term (current) use of aspirin; Z79.899 Other long term (current) drug therapy; Z95.0 Presence of cardiac pacemaker
CPT/HCPCS: 70450; 71045; 80048; 85025; 87631; 93005; 99285; J1100